=== PATIENT | female | born 1960 | race Caucasian/White ===

== ENCOUNTER 2017-09-15 06:05 | Inpatient (IN) | payer OTHER ==
[2017-09-15] MEDS ORDERED: NA CHLORIDE 0.9% 1,000 ML ONE ×3 (06:44→07:50)
[2017-09-15 06:50] LABS: Potassium 4.1 mEq/L (3.6-5.0)
[2017-09-15 06:53] LABS: Basophils % 0.4 % (0-1.3); Eosinophils % 0.5 % (0-4.4); Lymphocytes % 6.5 % (15.3-44.8); MCH 28.9 pg (27.0-35.0); MCV 93.2 fL (80-100); MPV 8.7 fL (7.6-11.3); Monocytes % 20.2 % (3.3-12.3); RBC Red Blood Cell Count 3.53 M/uL (3.86-4.86)
[2017-09-15 06:54] LABS: Absolute Lymphocytes (CBC) 0.2 K/uL (0.7-4.9); Absolute Monocytes 0.5 K/uL (0.1-1.3)
[2017-09-15 06:56] LABS: Albumin 3.1 g/dL (3.2-5.5); Bilirubin Direct 0.3 mg/dL (0-0.2); Bilirubin Total 0.8 mg/dL (0.3-1.2); Protein, Total 6.5 g/dL (6.0-8.3)
[2017-09-15] MEDS ORDERED: ACETAMINOPHEN 500 MG TAB ONE (06:56)
[2017-09-15 07:34] LABS: Blood Morphology Comment NOT SEEN (NOT SEEN); Platelet Estimate ADEQ; Urine White Blood Cell Casts OK
[2017-09-15] MEDS ORDERED: PIPERACILLIN-TAZO-DEXTROSE,ISO 3.375 GM/50 ML BAG ONE (07:38)
[2017-09-15 08:02] LABS: Urine Blood NEGATIVE (NEG); Urine Glucose NEGATIVE (NEG); Urine Protein 1+ (NEG); Urine pH 5.5 (5.0-7.0)
[2017-09-15 08:03] LABS: Urine Bacteria NONE SEEN /HPF (<20); Urine Culture Reflex Order NOT NEEDED; Urine RBC <5 /HPF (NONE SEEN)
[2017-09-15] MEDS ORDERED: VANCOMYCIN/NS 1 gm 1 GM/250 ML BAG ONE (08:41)
--- NOTE | 2017-09-15 10:15 | RAD REPORT ---
EXAM DESCRIPTION: RAD - Chest Single View - 09/15/2017 8:08 am CLINICAL HISTORY: Fever. COMPARISON: 2014. FINDINGS: The lungs appear clear of acute infiltrate. The heart is moderately enlarged. IMPRESSION: No acute abnormality is displayed.
--- NOTE | 2017-09-15 10:18 | RAD REPORT ---
EXAM DESCRIPTION: CT - Abdomen Pelvis Wo Contrast - 09/15/2017 10:06 am CLINICAL HISTORY: Abdominal pain. Fever, vomiting COMPARISON: 07/17/2014, 01/08/2013, 08/20/2011 TECHNIQUE: CT imaging of the abdomen and pelvis was performed without contrast. Solid organ, bowel a nd vascular assessment is limited due to lack of IV and oral contrast. All CT scans are performed using dose optimization technique as appropriate and may include automated exposure control or mA/KV adjustment according to patient size. FINDINGS: Linear subsegmental atelectasis is present in both lung bases. The liver, spleen, pancreas, adrenal glands are within normal limits for a limited non-contrast exami nation. Several low-density renal lesions are present probably cysts but incompletely assessed. No st one or hydronephrosis. Multiple the dilated small bowel loops are seen in the mid and lower abdomen compatible with a modera te mechanical small-bowel obstruction. There is right lower quadrant ventral hernia seen with several prominent loops of small bowel in the hernia sac with transition point probably present in this raquel on. No free intraperitoneal air is seen. No localized fluid collections or abscess. Trace free fluid is seen in the pelvis. No bulky adenopathy is seen. Moderate degenerative changes are present in the spine. IMPRESSION: Moderate mechanical small-bowel obstruction is noted. Point of transition is suspected i n the right lower quadrant ventral hernia. No free air or abscess. A limited non-contrast examination was performed as detailed.
--- NOTE | 2017-09-15 10:23 | ER ---
Nurse's Notes [facility] Name: Fannie Plunkett Age: 57 yrs Sex: Female : 1960 Arrival Date: 09/15/2017 Time: 06:07 Bed 4 Private MD: Diagnosis: Sepsis;Bacteremia;Hypotension Presentation: 09/15 06:32 Presenting complaint: EMS states: "Patient has been having intestinal issues for the bs1 past year, she's had a colonoscopy, she's been vomiting x3, with diarrhea, blood pressure low at 80/56, 101.2 temp, 97% on room air, patient states she is supposed to have a lower bowel series today at 1000 am.". Transition of care: patient was not received from another setting of care. Onset of symptoms was September 15, 2017. Care prior to arrival: None. 06:32 Method Of Arrival: EMS: [facility] bs1 06:32 Acuity: MODESTA 2 bs1 Historical: - Allergies: 06:17 Morphine; ak1 06:17 Codeine; ak1 06:17 NSAIDS; ak1 06:17 Tape; ak1 - Home Meds: 06:17 Depakote 500 mg Oral TbEC 1 tab 2 times per day [Active]; Nexium 40 mg Oral cpDR 1 cap ak1 once daily [Active]; Lasix 20 mg Oral tab 1 tab once daily [Active]; Lunesta 3 mg oral tab 1 tab once daily [Active]; Klonopin 0.5 mg Oral tab 1 tab nightly [Active]; Robaxin 750 mg Oral 3 tabs daily [Active]; Bystolic 5 mg oral tab 1 tab once daily [Active]; aspirin 81 mg Oral chew 1 tab once daily [Active]; levothyroxine 100 mcg tab 1 tab once daily [Active]; Crestor 40 mg oral tab 1 tab once daily [Active]; Vascepa 1 gram oral cap 2 caps 2 times per day [Active]; nexabiotic [Active]; patanase [Active]; Atrovent Nasal [Active]; Zyrtec 10 mg Oral tab 1 tab once daily [Active]; verapamil 240 mg Oral C24P 1 cap once daily [Active]; Adcirca 20 mg oral tab 2 tabs once daily [Active]; Viberzi 100 mg oral tab 1 tab daily [Active]; allopurinol 100 mg Oral tab 1 tab once daily [Active]; Lipofen 150 mg oral cap 1 cap once daily [Active]; sinupro [Active]; Iron CR Oral [Active]; Vitamin D Oral [Active]; tramadol 50 mg Oral tab [Active]; restsis [Active]; - PMHx: 06:17 Sleep Apnea; IBS; Hypothyroidism; Anemia; PAH; Hyperlipidemia; GERD; Depression; ak1 - PSHx: 06:17 Hysterectomy; Hernia repair; Knee surgery; Colon resection; back surg for 3 pinched ak1 nerves; breast needle biopsy; - Immunization history:: Adult Immunizations unknown. - Social history:: Smoking status: unknown. Screenin:37 Abuse screen: Denies threats or abuse. Denies injuries from another. Nutritional bs1 screening: No deficits noted. Tuberculosis screening: No symptoms or risk factors identified. Fall Risk No fall in past 12 months (0 pts). No secondary diagnosis (0 pts). IV access (20 points). Ambulatory Aid- Crutches/Cane/Walker (15 pts). Gait- Weak (10 pts.). Mental Status- Oriented to own ability (0 pts). Total Castañeda Fall Scale indicates High Risk Score (45 or more points). Fall prevention measures have been instituted. Side Rails Up X 2 Family Present and informed to notify staff if the need to leave the bedside As available patient and family educated on Fall Prevention Program and Strategies. Assessment: 06:38 General: Appears uncomfortable, Behavior is calm, cooperative, appropriate for age. bs1 Pain: Denies pain. Neuro: Level of Consciousness is awake, alert, obeys commands, Oriented to person, place, time, situation, Appropriate for age [employer] are weak bilaterally Weakness Gait is Speech is normal, Reports weakness. Cardiovascular: Denies chest pain, lightheadedness, palpitations, Heart tones S1 S2 present Capillary refill < 3 seconds Patient's skin is warm and dry. Respiratory: Reports shortness of breath on exertion uses home oxygen at night/bipap, hx of sleep apnea Airway is patent Trachea midline Respiratory effort is even, unlabored, Respiratory pattern is regular, symmetrical, Breath sounds are diminished bilaterally. GI: Abdomen is round distended, Bowel sounds present X 4 quads. Abdomen is tender to palpation X 4 quads. Reports nausea, vomiting, Patient currently denies bloody stool, rectal bleeding. : No deficits noted. No signs and/or symptoms were reported regarding the genitourinary system. EENT: Eyes jaundine. face jaundice/pale. Lips dry.. Derm: Skin is intact, Skin is pale, Skin temperature is warm lymphemdema noted to bilateral legs, discoloration of chins noted. Musculoskeletal: 07:09 General: Appears in no apparent distress. ill, obese, Behavior is calm, cooperative. em Pain: Denies pain. Neuro: Level of Consciousness is awake, alert, obeys commands, Oriented to person, place, time, situation, Fun[employer] are weak bilaterally Weakness Speech is normal, Facial symmetry appears normal, Reports weakness. Cardiovascular: Denies chest pain, lightheadedness, palpitations, Heart tones S1 S2 present Capillary refill < 3 seconds Patient's skin is warm and dry. Respiratory: Airway is patent Respiratory effort is even, unlabored, Respiratory pattern is regular, symmetrical, Breath sounds are clear bilaterally. GI: Abdomen is round non-distended, Bowel sounds present X 4 quads. Abd is soft X 4 quads Abdomen is tender to palpation X 4 quads. Reports nausea, vomiting, Patient currently denies rectal bleeding. : No signs and/or symptoms were reported regarding the genitourinary system. EENT: Oral mucosa is dry. lips are dry, crusted. Derm: Skin is intact, Skin is dry, Skin is pale, Skin temperature is warm. Musculoskeletal: Range of motion: intact in all extremities. 07:50 Reassessment: pt skin is pale, dry and warm, respirations even and unlabored, A\\T\\O4. em SIDDHARTH Chen notified of BP 76/37, HR102, pt moved to trauma room 4 for central line placement, report given to MARC Marion Patient denies pain at this time. 07:55 Pain: Denies pain. Neuro: Level of Consciousness is awake, alert, obeys commands, jl7 Oriented to person, place, time, situation. Cardiovascular: Denies chest pain, Murmur present. Respiratory: Airway is patent Respiratory effort is even, unlabored, Respiratory pattern is regular, symmetrical, Breath sounds with wheezes bilaterally. GI: Abdomen is round non-distended, Patient currently denies abdominal pain. Derm: Skin is dry, Skin is pale, Skin temperature is warm. 08:45 Reassessment: Gustavo MESSINA at bedside to insert Central Line. jl7 08:45 Reassessment: Patient and/or family updated on plan of care and expected duration. Pain jl7 level reassessed. Patient is alert, oriented x 3, equal unlabored respirations, skin warm/dry/pink. Respiratory: Breath sounds are clear bilaterally. 09:30 Reassessment: Pt to CT. jl7 Vital Signs: 06:36 BP 80 / 56; Pulse 105; Resp 25; Temp 102.5(O); Pulse Ox 100% on 2 lpm NC; Weight 111.13 bs1 kg; Height 5 ft. 4 in. (162.56 cm); Pain 0/10; 06:53 BP 88 / 53; Pulse 103; Resp 20; Pulse Ox 100% on 2 lpm NC; bs1 07:07 BP 89 / 71; Pulse 101; Resp 24; Pulse Ox 100% on 2 lpm NC; Pain 0/10; em 07:40 BP 76 / 37; Pulse 102; Resp 26; Temp 100.0(O); Pulse Ox 99% on 2 lpm NC; Pain 0/10; em 07:46 BP 93 / 50; Pulse 99; Resp 27 S; Pulse Ox 94% on 2 lpm NC; jl7 08:03 BP 90 / 54; Pulse 104; Resp 18 S; Pulse Ox 100% on 2 lpm NC; jl7 09:25 BP 124 / 88; Pulse 94; Resp 20; Pulse Ox 100% on 2 lpm NC; jb1 10:18 BP 77 / 46; Pulse 90; Resp 20; Pulse Ox 100% ; aj1 10:28 BP 99 / 57; Pulse 90; Resp 20; Pulse Ox 100% ; aj1 10:56 BP 79 / 43; Pulse 93; Resp 22; Pulse Ox 98% ; aj1 11:07 BP 106 / 52; Pulse 94; Resp 21; Temp 99.3(O); Pulse Ox 100% on NC; aj1 06:36 Body Mass Index 42.05 (111.13 kg, 162.56 cm) bs1 10:56 Levophed increased to 15 mcg/min aj1 ED Course: 06:07 Patient arrived in ED. rg2 06:08 [facility] jr8 06:08 Enrico Flores MD is Attending Physician. jr8 06:31 Brissa Dickson, MARC is Primary Nurse. bs1 06:33 Missed attempt(s): 22 gauge in left forearm. Inserted saline lock: 22 gauge in left lp1 forearm, using aseptic technique. Blood collected. 06:35 Triage completed. bs1 06:47 Arm band placed on placed. bs1 06:48 Inserted saline lock: 18 gauge in right antecubital area, using aseptic technique. By bs1 SIDDHARTH Mckinley. 06:48 Patient has correct armband on for positive identification. Bed in low position. Call bs1 light in reach. Side rails up X 1. media monitor on. Pulse ox on. NIBP on. 06:57 Report given to NINFA Siu. bs1 07:06 X-ray completed. Portable x-ray completed in exam room. Patient tolerated procedure jb2 well. 08:02 Primary Nurse role handed off by Brissa Dickson RN jl7 08:02 Doni Hearn RN is Primary Nurse. jl7 08:45 Assisted provider with central line placement. Set up central line tray. Triple lumen jl7 line placed in left internal jugular. Line placed by Gustavo MESSINA Patient tolerated poorly. Pt unable to remain still during procedure. Provider attempt was unsuccessful at this time. Before procedure, did Practitioner(s) obtain informed consent? Yes. Patient \\T\\ family education about procedure, CLABSI prevention and S/S of infection? Yes. Time-out/Briefing performed prior to start of procedure? Yes. Was handwashing/sanitizing done immediately prior to procedure? Yes. Was patient positioned to in a way to prevent air embolism? Yes. Was procedure site sterilized? Yes, with chlorhexidine. Was the site allowed to dry? Yes. Was local anesthetic and/or sedation utilized? Yes. During the procedure, did the Practitioner(s) maintain a sterile field? Yes. 08:54 Radiology exam delayed due to PT GETTING LINE PUT IN VIA U/S BY JOSH. MARION TO CALL jg1 WHEN READY. 09:53 Report given to MARC Mitchell. jl7 10:15 Assisted provider with central line placement. Set up central line tray. Triple lumen aj1 line placed in right femoral. Line placed by Gustavo MESSINA Placement verified by blood return, Dressed with Tegaderm, Blood was collected. Patient tolerated well. Before procedure, did Practitioner(s) obtain informed consent? Yes. Patient \\T\\ family education about procedure, CLABSI prevention and S/S of infection? Yes. Time-out/Briefing performed prior to start of procedure? Yes. Was handwashing/sanitizing done immediately prior to procedure? Yes. Was patient positioned to in a way to prevent air embolism? Yes. Was procedure site sterilized? Yes, with chlorhexidine. Was the site allowed to dry? Yes. Was local anesthetic and/or sedation utilized? Yes. During the procedure, did the Practitioner(s) maintain a sterile field? Yes. Were unused ports clamped during insertion? Yes. Was a 2nd qualified MD obtained after 3 unsuccessful insertion attempts? N/A. Was blood aspirated from each lumen? Yes. After the procedure, did the Practitioner(s) clean the site and apply a sterile dressing? Yes. 10:17 Primary Nurse role handed off by Doni Hearn RN aj1 10:17 Debbi Rivera RN is Primary Nurse. aj1 10:21 Michael Villegas MD is Hospitalizing Provider. jr8 11:53 Patient admitted, IV remains in place. aj1 Administered Medications: 06:30 Drug: NS 0.9% 1000 ml Route: IV; Rate: 1000 ml; Site: left antecubital; bs1 09:23 Follow up: IV Intake: 1000ml jl7 06:42 Drug: Tylenol 1000 mg Route: PO; bs1 07:08 Follow up: Response: Temperature is decreased hj 06:59 Drug: NS 0.9% 1000 ml Route: IV; Rate: 1000 ml; Site: right antecubital; hj 09:00 Follow up: IV Status: Completed infusion jl7 09:22 Follow up: IV Intake: 1000ml jl7 07:37 Drug: Zosyn 3.375 grams Route: IVPB; Infused Over: 60 mins; Site: right antecubital; em 08:37 Follow up: Response: No adverse reaction; IV Status: Completed infusion jl7 07:40 Drug: NS 0.9% 1000 ml Route: IV; Rate: 1000 ml; Site: right antecubital; em 09:00 Follow up: IV Status: Completed infusion jl7 09:22 Follow up: IV Intake: 1000ml jl7 08:40 Drug: vancoMYCIN 1 grams Route: IVPB; Infused Over: 2 hrs; Site: right antecubital; jl7 10:20 Drug: Levophed (4 mg/250 mL D5W 4 mcg/min {Note: Drip started at 10 mcg/ min.} Route: aj1 IV; Rate: calculated rate; Site: right femoral; 11:10 Follow up: Rate change 15 mcg/min aj1 Intake: 09:22 IV: 1000ml; Total: 1000ml. jl7 09:22 IV: 1000ml; Total: 2000ml. jl7 09:23 IV: 1000ml; Total: 3000ml. jl7 Outcome: 10:22 Decision to Hospitalize by Provider. jr8 11:53 Patient left the ED. 11:53 Admitted to ICU accompanied by nurse, accompanied by tech, via stretcher, on monitor, aj with chart. 11:53 critical 11:53 Discharge instructions given to patient, family, Instructed on the need for admit, Demonstrated understanding of instructions. Signatures: Pj Coy jb1 Sudhakar Beltran rg2 Debbi Rivera RN RN aj1 Jessica Irwin, RN RN Robbin Razo jb2 Shannon Silva jg1 Salbador Benjamin, ARMATURE STRAIGHTENER ARMATURE STRAIGHTENER Kaur Cedillo, RN RN lp1 Gustavo Joiner PA PA jr8 Yudi Kaba, RN RN ak1 Be Puentes, RN Doni De Leon, MARC RN jl7 Brissa Dickson, RN RN bs1 Corrections: (The following items were deleted from the chart) 09:22 IV Intake: 1000ml jl7 jl7
--- NOTE | 2017-09-15 10:23 | EDPHYS ---
Physician Documentation [facility] Name: Fannie Plunkett Age: 57 yrs Sex: Female : 1960 Arrival Date: 09/15/2017 Time: 06:07 Bed 4 Private MD: ED Physician Enrico Flores HPI: 09/15 07:12 This 57 yrs old Female presents to ER via EMS with complaints of n/v/d. jr8 07:14 The patient presents to the emergency department with nausea, vomiting, diarrhea. jr8 Onset: The symptoms/episode began/occurred gradually, 3 month(s) ago. Possible causes: unknown. The symptoms are aggravated by nothing. The symptoms are alleviated by nothing. Associated signs and symptoms: The patient has no apparent associated signs or symptoms. Severity of symptoms: At their worst the symptoms were moderate in the emergency department the symptoms are unchanged. The patient has not experienced similar symptoms in the past. The patient has been recently seen by a physician:. Patient stated that she has had recent endoscopy, colonoscopy for continuous n/v/d. Stated that she was scheduled to have small bowel follow through tomorrow. Came to ED today for weakness, n/v/d . Historical: - Allergies: 06:17 Morphine; ak1 06:17 Codeine; ak1 06:17 NSAIDS; ak1 06:17 Tape; ak1 - Home Meds: 06:17 Depakote 500 mg Oral TbEC 1 tab 2 times per day [Active]; Nexium 40 mg Oral cpDR 1 cap ak1 once daily [Active]; Lasix 20 mg Oral tab 1 tab once daily [Active]; Lunesta 3 mg oral tab 1 tab once daily [Active]; Klonopin 0.5 mg Oral tab 1 tab nightly [Active]; Robaxin 750 mg Oral 3 tabs daily [Active]; Bystolic 5 mg oral tab 1 tab once daily [Active]; aspirin 81 mg Oral chew 1 tab once daily [Active]; levothyroxine 100 mcg tab 1 tab once daily [Active]; Crestor 40 mg oral tab 1 tab once daily [Active]; Vascepa 1 gram oral cap 2 caps 2 times per day [Active]; nexabiotic [Active]; patanase [Active]; Atrovent Nasal [Active]; Zyrtec 10 mg Oral tab 1 tab once daily [Active]; verapamil 240 mg Oral C24P 1 cap once daily [Active]; Adcirca 20 mg oral tab 2 tabs once daily [Active]; Viberzi 100 mg oral tab 1 tab daily [Active]; allopurinol 100 mg Oral tab 1 tab once daily [Active]; Lipofen 150 mg oral cap 1 cap once daily [Active]; sinupro [Active]; Iron CR Oral [Active]; Vitamin D Oral [Active]; tramadol 50 mg Oral tab [Active]; restsis [Active]; - PMHx: 06:17 Sleep Apnea; IBS; Hypothyroidism; Anemia; PAH; Hyperlipidemia; GERD; Depression; ak1 - PSHx: 06:17 Hysterectomy; Hernia repair; Knee surgery; Colon resection; back surg for 3 pinched ak1 nerves; breast needle biopsy; - Immunization history:: Adult Immunizations unknown. - Social history:: Smoking status: unknown. ROS: 07:14 Eyes: Negative for injury, pain, redness, and discharge, ENT: Negative for injury, jr8 pain, and discharge, Neck: Negative for injury, pain, and swelling, Cardiovascular: Negative for chest pain, palpitations, and edema, Respiratory: Negative for shortness of breath, cough, wheezing, and pleuritic chest pain, Back: Negative for injury and pain, MS/Extremity: Negative for injury and deformity, Skin: Negative for injury, rash, and discoloration, Neuro: Negative for headache, weakness, numbness, tingling, and seizure. 07:14 Constitutional: Positive for fatigue, fever. 07:14 Abdomen/GI: Positive for nausea, vomiting, and diarrhea, abdominal cramps, Negative for abdominal pain, abdominal distension, anorexia, dysphagia, hematemesis, black/tarry stool, rectal pain, rectal bleeding, bowel incontinence, flatulence. Exam: 07:14 Eyes: Pupils equal round and reactive to light, extra-ocular motions intact. Lids and jr8 lashes normal. Conjunctiva and sclera are non-icteric and not injected. Cornea within normal limits. Periorbital areas with no swelling, redness, or edema. ENT: Nares patent. No nasal discharge, no septal abnormalities noted. Tympanic membranes are normal and external auditory canals are clear. Oropharynx with no redness, swelling, or masses, exudates, or evidence of obstruction, uvula midline. Mucous membranes moist. Neck: Trachea midline, no thyromegaly or masses palpated, and no cervical lymphadenopathy. Supple, full range of motion without nuchal rigidity, or vertebral point tenderness. No Meningismus. Respiratory: Lungs have equal breath sounds bilaterally, clear to auscultation and percussion. No rales, rhonchi or wheezes noted. No increased work of breathing, no retractions or nasal flaring. Abdomen/GI: Soft, non-tender, with normal bowel sounds. No distension or tympany. No guarding or rebound. No evidence of tenderness throughout. Back: No spinal tenderness. No costovertebral tenderness. Full range of motion. Skin: Warm, dry with normal turgor. Normal color with no rashes, no lesions, and no evidence of cellulitis. MS/ Extremity: Pulses equal, no cyanosis. Neurovascular intact. Full, normal range of motion. Neuro: Awake and alert, GCS 15, oriented to person, place, time, and situation. Cranial nerves II-XII grossly intact. Motor strength 5/5 in all extremities. Sensory grossly intact. Cerebellar exam normal. Normal gait. 07:14 Cardiovascular: Rate: tachycardic, Rhythm: regular, Pulses: Pulses are 1+ in right radial artery and left radial artery. Heart sounds: normal, normal S1and S2, no S3 or S4, no murmur, no rub, no gallop, Edema: 1+ edema to level of left midcalf, left ankle, left foot, left toes, right midcalf, right ankle, right foot and right toes, JVD: is not appreciated. Vital Signs: 06:36 BP 80 / 56; Pulse 105; Resp 25; Temp 102.5(O); Pulse Ox 100% on 2 lpm NC; Weight 111.13 bs1 kg; Height 5 ft. 4 in. (162.56 cm); Pain 0/10; 06:53 BP 88 / 53; Pulse 103; Resp 20; Pulse Ox 100% on 2 lpm NC; bs1 07:07 BP 89 / 71; Pulse 101; Resp 24; Pulse Ox 100% on 2 lpm NC; Pain 0/10; em 07:40 BP 76 / 37; Pulse 102; Resp 26; Temp 100.0(O); Pulse Ox 99% on 2 lpm NC; Pain 0/10; em 07:46 BP 93 / 50; Pulse 99; Resp 27 S; Pulse Ox 94% on 2 lpm NC; jl7 08:03 BP 90 / 54; Pulse 104; Resp 18 S; Pulse Ox 100% on 2 lpm NC; jl7 09:25 BP 124 / 88; Pulse 94; Resp 20; Pulse Ox 100% on 2 lpm NC; jb1 10:18 BP 77 / 46; Pulse 90; Resp 20; Pulse Ox 100% ; aj1 10:28 BP 99 / 57; Pulse 90; Resp 20; Pulse Ox 100% ; aj1 10:56 BP 79 / 43; Pulse 93; Resp 22; Pulse Ox 98% ; aj1 11:07 BP 106 / 52; Pulse 94; Resp 21; Temp 99.3(O); Pulse Ox 100% on NC; aj1 06:36 Body Mass Index 42.05 (111.13 kg, 162.56 cm) bs1 10:56 Levophed increased to 15 mcg/min aj1 Procedures: 10:15 Central Line: the site was prepped with Betadine, in sterile fashion, a triple lumen jr8 catheter was inserted, in the right femoral vein, in 1 attempts. placement was verified, by blood return, the site was dressed with 4X4s, Tegaderm, foam tape, using sterile technique, the patient tolerated the procedure, well. 10:15 Central Line: the site was prepped with Betadine, in sterile fashion, a triple lumen jr8 catheter was inserted, in the left internal jugular vein, in 1 attempts. Patient could not tolerate this procedure. We had to stop midway through procedure. Unable to complete. MDM: 06:08 Patient medically screened. jr8 10:15 Data reviewed: vital signs, nurses notes, lab test result(s), EKG, radiologic studies, jr8 CT scan, plain films, and as a result, I will admit patient. Data interpreted: Pulse oximetry: on room air is 100 %. Interpretation: normal. Counseling: I had a detailed discussion with the patient and/or guardian regarding: the historical points, exam findings, and any diagnostic results supporting the discharge/admit diagnosis, lab results, radiology results, the need for further work-up and treatment in the hospital. Physician consultation: Michael Villegas MD was called at 10:21, was contacted at 10:21, regarding admission, to the ICU, and will see patient. 09/15 06:26 Order name: Basic Metabolic Panel [facility] 09/15 06:26 Order name: CBC with Diff [facility] 09/15 06:26 Order name: Creatinine for Radiology [facility] 09/15 06:26 Order name: Hepatic Function [facility] 09/15 06:26 Order name: Lipase [facility] 09/15 06:37 Order name: Influenza Screen (a \T\ B) [facility] 09/15 06:37 Order name: Blood Culture Adult (2) [facility] 09/15 06:37 Order name: Lactate [facility] 09/15 06:37 Order name: Procalcitonin [facility] 09/15 06:50 Order name: Basic Metabolic Panel; Complete Time: 06:58 EDMS 09/15 06:50 Order name: Lipase; Complete Time: 06:58 EDMS 09/15 06:52 Order name: Urine Microscopic Only [facility] 09/15 06:55 Order name: Creatinine (Radiology Only); Complete Time: 06:58 EDMS 09/15 06:57 Order name: Liver (Hepatic) Function; Complete Time: 06:58 EDMS 09/15 06:52 Order name: XRAY Chest (1 view) [facility] 09/15 07:12 Order name: Influenza Screen (A ; Complete Time: 07:12 EDMS 09/15 07:16 Order name: Lactate; Complete Time: 07:19 EDMS 09/15 07:34 Order name: Urine Dipstick--Ancillary (enter results) 09/15 07:35 Order name: CBC with Automated Diff; Complete Time: 07:40 EDMS 09/15 07:35 Order name: CBC Smear Scan; Complete Time: 07:40 EDMS 09/15 07:38 Order name: Procalcitonin; Complete Time: 07:40 EDMS 09/15 08:02 Order name: Urine Dipstick-Ancillary; Complete Time: 08:25 EDMS 09/15 08:04 Order name: Urine Microscopic Only; Complete Time: 08:25 EDMS 09/15 08:29 Order name: CT Abd/Pelvis - Without Cont [facility] 09/15 10:16 Order name: RAD; Complete Time: 10:22 EDMS 09/15 10:18 Order name: CT; Complete Time: 10:22 EDMS 09/15 10:30 Order name: Lactate Sepsis 2 HR Follow-up; Complete Time: 10:34 EDMS 09/15 06:26 Order name: IV Saline Lock; Complete Time: 06:32 jr8 09/15 06:26 Order name: Labs collected and sent; Complete Time: 06:32 jr8 09/15 06:26 Order name: Urine Dipstick-Ancillary (obtain specimen); Complete Time: 08:01 jr8 09/15 07:05 Order name: Straight Cath - Urine; Complete Time: 07:59 jr8 Administered Medications: 06:30 Drug: NS 0.9% 1000 ml Route: IV; Rate: 1000 ml; Site: left antecubital; bs1 09:23 Follow up: IV Intake: 1000ml jl7 06:42 Drug: Tylenol 1000 mg Route: PO; bs1 07:08 Follow up: Response: Temperature is decreased hj 06:59 Drug: NS 0.9% 1000 ml Route: IV; Rate: 1000 ml; Site: right antecubital; hj 09:00 Follow up: IV Status: Completed infusion jl7 09:22 Follow up: IV Intake: 1000ml jl7 07:37 Drug: Zosyn 3.375 grams Route: IVPB; Infused Over: 60 mins; Site: right antecubital; em 08:37 Follow up: Response: No adverse reaction; IV Status: Completed infusion jl7 07:40 Drug: NS 0.9% 1000 ml Route: IV; Rate: 1000 ml; Site: right antecubital; em 09:00 Follow up: IV Status: Completed infusion jl7 09:22 Follow up: IV Intake: 1000ml jl7 08:40 Drug: vancoMYCIN 1 grams Route: IVPB; Infused Over: 2 hrs; Site: right antecubital; jl7 10:20 Drug: Levophed (4 mg/250 mL D5W 4 mcg/min {Note: Drip started at 10 mcg/ min.} Route: aj1 IV; Rate: calculated rate; Site: right femoral; 11:10 Follow up: Rate change 15 mcg/min aj1 Disposition: 09/15/17 10:22 Hospitalization ordered by Michael Villegas for Inpatient Admission. Preliminary diagnosis are Sepsis, Bacteremia, Hypotension. - Bed requested for Intensive Care Unit. - Status is Inpatient Admission. sv - Condition is Stable. - Problem is new. - Symptoms have improved. UTI on Admission? No Addendum: 09/26/2017 11:24 Co-signature as Attending Physician, Enrico Flores MD available for consultation at p s1 all times. . Signatures: Dispatcher [employer] Susie Lambert Angela, RN RN aj1 Jessica Irwin, RN RN sv Salbador Benjamin, BRIAR CUTTER BRIAR CUTTER em Gustavo Joiner PA PA jr8 Yudi Kaba RN RN ak1 Be Puentes RN RN hj Doni Hearn RN RN jl7 Enrico Flores MD MD [facility] Brissa Dickson, RN RN bs1
[2017-09-15] MEDS ORDERED: FENTANYL CITR 100 MCG/2 ML IV PRN (11:29)
[2017-09-15] MEDS ORDERED: ACETAMINOPHEN 500 MG TAB PO PRN (11:29)
[2017-09-15] MEDS ORDERED: ALBUTEROL 2.5 MG/3 ML NEB SOL NEB SCH (12:00)
[2017-09-15] MEDS ORDERED: ALBUTEROL 2.5 MG/3 ML NEB SOL NEB PRN (12:59)
[2017-09-15] MEDS: NA CHLORIDE 0.9% 1,000 ML IV SCH ×2 (13:04→23:55)
--- NOTE | 2017-09-15 13:09 | P.HP ---
Certification for Inpatient Patient admitted to: Inpatient With expected LOS: >2 Midnights Practitioner: I am a practitioner with admitting privileges, knowledge of patient current condition, hospital course, and medical plan of care. Services: Services provided to patient in accordance with Admission requirements found in Title 42 Section 412.3 of the Code of Federal Regulations Patient History Date of Service: 09/15/17 Reason for admission: WEAK,NAUSEA, DIARRHEA History of Present Illness: MS DELACRUZ HAS MANY MEDICAL ISSUES. SHE HAS PULMONARY HTN FROM MEDS IN PAST, SHE HAS CHF, COPD, HYPOXIA, HTN, OBESITY ETC. SHE HAS BEEN GOING TO DR. KAUR FOR 2 MONTHS FOR DIARRHEA AND VOMITING. EGD AND COLONOSCOPY WERE DONE. NO MAJOR FINDINGS ARE FOUND. SHE IS HERE FOR WORSE SYMPTOMS. HER BP IS LOW. SHE IS ON DIURETICS FOR CHF AND HAS KEPT TAKING THEM. SHE NOW IS IN ICU . CT SCAN SHOWS SMALL BOWEL OBSTRUCTION. Allergies codeine [Codeine] Allergy (Mild, Verified 02/22/12 09:06) Itching morphine Adverse Reaction (Severe, Verified 02/22/12 09:06) Decreased blood presure NSAIDS (Non-Steroidal Anti-Inflamma Adverse Reaction (Intermediate, Verified 27/06 20:23) kidney insufficiency Tape Allergy (Uncoded 09/15/17 11:58) Unknown Home Medications: Allopurinol 100 mg PO DAILY 09/15/17 Aspirin 81 mg PO DAILY 09/15/17 Cetirizine HCl [Zyrtec] 10 mg PO BEDTIME 09/15/17 Cholecalciferol (Vitamin D3) [Vitamin D 1000 Iu Tab] 1,000 unit PO DAILY Clonazepam [Klonopin] 0.5 mg PO BEDTIME 09/15/17 Divalproex Sodium [Depakote] 500 mg PO BID 09/15/17 Esomeprazole Mag Trihydrate [Nexium] 40 mg PO DAILY 09/15/17 Eszopiclone [Lunesta] 3 mg PO BEDTIME 09/15/17 Fenofibrate [Lipofen] 150 mg PO DAILY 09/15/17 Furosemide [Lasix] 20 mg PO DAILY 09/15/17 Icosapent Ethyl [Vascepa] 2 gm PO BID 09/15/17 Levothyroxine [Synthroid] 100 mcg PO DAILY 09/15/17 Nebivolol HCl [Bystolic] 5 mg PO DAILY 09/15/17 Olopatadine HCl [Patanase] 30.5 gm NS BID PRN 09/15/17 Rosuvastatin Calcium [Crestor] 40 mg PO DAILY 09/15/17 Tadalafil [Cialis] 20 mg PO BID 09/15/17 Verapamil HCl [Verapamil ER] 240 mg PO BEDTIME 09/15/17 - Past Medical/Surgical History Has patient received pneumonia vaccine in the past: Yes Diabetic: No -: sleep apnea -: IBS/GERD -: Hypothyroid -: aNEMIA -: Pulmonary HTN -: back pain/ pinch nerves -: CKD -: HTN -: Hysterectomy -: Hernia repair -: Knee SX -: colon resection -: back Sx, Sciatica - Family History Mother History Unknown: Yes -: Hypertension, Blood disorders - Social History Smoking Status: Never smoker Alcohol use: Yes CD- Drugs: No Caffeine use: Yes Place of Residence: Home Review of Systems 10-point ROS is otherwise unremarkable General: Weakness, Malaise Physical Examination - Vital Signs Temperature: 99.3 F Blood Pressure: 106/52 Pulse: 94 Respirations: 21 - Physical Exam General: Alert, Moderate distress, Other (NGT SUCTION, LIC) HEENT: Atraumatic, PERRLA, Mucous membr. moist/pink, EOMI, Sclerae nonicteric Neck: Supple, 2+ carotid pulse no bruit, No LAD, Without JVD or thyroid abnormality Respiratory: Clear to auscultation bilaterally, Normal air movement Cardiovascular: Regular rate/rhythm, Normal S1 S2 Gastrointestinal: Normal bowel sounds, No tenderness Musculoskeletal: No tenderness Integumentary: No rashes Neurological: Normal gait, Normal speech, Normal strength at 5/5 x4 extr, Normal tone, Normal affect Lymphatics: No axilla or inguinal lymphadenopathy - Studies Laboratory Data (last 24 hrs) 09/15/17 06:20: Creatinine 3.60 H 09/15/17 06:20: WBC 2.7 L, Hgb 10.2 L, Hct 33.0 L, Plt Count 177 09/15/17 06:20: Sodium 144, Potassium 4.1, BUN 57 H, Creatinine 3.47 H, Glucose 115, Total Bilirubin 0.8, AST 40, ALT 23, Alkaline Phosphatase 42, Lipase 47 Microbiology Data (last 24 hrs): 09/15/17 06:50 Nasopharnyx Influenza Type A Antigen Screen - Final 09/15/17 06:50 Nasopharnyx Influenza Type B Antigen Screen - Final Assessment and Plan - Problems (Diagnosis) (1) Partial small bowel obstruction Current Visit: Yes Status: Acute Plan: IV FLUIDS IV LEV, FLAGYL NGT WITH SUCTION DR WHIPPLE CONSULTED. (2) Septic shock Current Visit: Yes Status: Acute Plan: IV ABX MOST LIKELY FROM SMALL BOWEL OBST NO OTHER OBVIOUS SIGNS OF INFECTION (3) Dehydration Current Visit: Yes Status: Acute (4) Acute on chronic renal failure Current Visit: Yes Status: Acute Plan: IV FLUID CHECK LAB DAILY DVT PX - Advance Directives Does patient have a Living Will: Yes Does patient have a Durable POA for Healthcare: Yes
[2017-09-15] MEDS: FAMOTIDINE 20 MG/2 ML VIAL IV SCH (14:59)
[2017-09-15] MEDS: ONDANSETRON 4 MG/2 ML VIAL IV PRN (15:08)
[2017-09-15] MEDS: METRONIDAZOLE 500mg IVPB 500 MG/100 ML BAG IV SCH ×2 (16:49→23:53)
[2017-09-15] MEDS: ENOXAPARIN 30 MG/0.3 ML SQ SCH (16:49)
[2017-09-15] MEDS: NOREPINEPHRINE 4 MG in D5W 250 ML IV PRN ×2 (16:57→20:06)
[2017-09-15] MEDS ORDERED: ENOXAPARIN 40 MG/0.4 ML SQ SCH (17:00)
[2017-09-15] MEDS ORDERED: Levofloxacin500mg IV 500 MG/100 ML BAG IV SCH (18:00)
[2017-09-15] MEDS ORDERED: LORazepam 2 MG/ML VIAL IV PRN (18:44)
[2017-09-15] MEDS: DIVALPROEX DR 500MG TAB PO SCH (20:02)
[2017-09-16] MEDS ORDERED: NOREPINEPHRINE 4mg/D5W 250mL 4 MG/250 ML BAG IV ONE (01:04)
--- NOTE | 2017-09-16 03:25 | CON ---
Date of Consultation: 09/15/2017 Reason For Service: Chronic abdominal pain and acute abdominal pain. History Of Present Illness: This is a case of a 57-year-old patient, [facility], found to also have last night some nausea and some belly ache. The patient had a chronic hernia on her abdomen. It has been there for some time, has multiple series in the [facility]. I discussed the case with the previous surgeon who operated the case. She has a hernia that jus t loose the right of the main and every now and then gave her some trouble. She has some nausea, alt ramesh she feels better right now. She was admitted due to also some other medical issues and a surgi luis carlos consult was obtained. She denies any dysuria, hematuria, hematochezia, or melena. Denies any re cent traveling out of the country. Denies any family members sick at home. She was explained the im portance of colonoscopies. The patient has been worked out by the case monitor with EGD and co lonoscopy done not too long ago. She states she is also due for a small bowel series in the near [facility]. Allergies: CODEINE, MORPHINE, AND NSAIDS. Medications: Reviewed including aspirin. Past Medical Problems: Sleep apnea, irritable bowel syndrome, hypothyroid, anemia, pulmonary hyperte nsion, colon resection although, she does not remember why. Past Surgical History: Include hysterectomy, ventral hernia repair, back surgery. Family History: Hypertension. Social History: She does smoke, uses alcohol just occasionally. Review of Systems: Respiratory: Denies any shortness of breath. Abdominal: As above. Extremity: No calf tenderness. Otherwise, 10-point review of systems unremarkable. Physical Examination: General: The patient is awake and alert. HEENT: Pupils anicteric. Neck: Supple. Chest: Clear. Abdomen: Large. The patient is morbidly obese. Soft and depressible with no guarding rebound. No peritoneal signs. Mildly distended all over. No peritonitis. Rectal: Deferred. Extremities: Good capillary refill. Laboratory Data: Blood work shows WBC count of 2.7, hemoglobin at 10.2, and platelets up to 177. Po tassium is 4.1, bicarb is 25, creatinine is 3.47, total bilirubin of 0.8. Imaging: CAT scan of abdomen and pelvis read by Dr. Kaye as moderate mechanical small bowel obstruc tion suspect in the right lower quadrant. No free air, no pneumatosis, no abscess. Assessment: This is a 57-year-old patient, comes to us with chronic abdominal pain. She has been wo rked up as we speak with the case monitor to try to find the etiology of it. She has a very la rge hernia. She is morbidly obese and the hernia loose the the right of the main. This is just larg e area with bowel coming through and it looked it has been there chronically as when I talk to the ollie anthony. We do not see any specific transition point. The hernia itself is the entire abdomen, so it is hard to pinpoint a word to look first. In the next few days, if she does not improve then small b owel series will be done to see if there is any specific area. The bowel obstruction is not a proble m, it is the closure when we do a laparotomy and that has to be explained to the patient like I did r ight now in detail because we might not be able to close her abdomen. KACY/HAYLIE Voice ID: [id number] Report ID: [id number]
[2017-09-16 05:23] LABS: Absolute Lymphocytes (CBC) 0.6 K/uL (0.7-4.9); Absolute Monocytes 0.9 K/uL (0.1-1.3); Absolute Neutrophil 1.8 K/uL (1.8-8.0); Basophils % 0.8 % (0-1.3); Eosinophils % 0.2 % (0-4.4); Hematocrit 28.5 % (36.0-45.0); Lymphocytes % 16.9 % (15.3-44.8); MCH 29.9 pg (27.0-35.0); MCV 92.2 fL (80-100); MPV 7.6 fL (7.6-11.3); Monocytes % 26.4 % (3.3-12.3); RBC Red Blood Cell Count 3.09 M/uL (3.86-4.86)
[2017-09-16] MEDS: METRONIDAZOLE 500mg IVPB 500 MG/100 ML BAG IV SCH ×4 (05:25→23:15)
[2017-09-16 05:55] LABS: Potassium 4.6 mEq/L (3.6-5.0)
[2017-09-16] MEDS: ONDANSETRON 4 MG/2 ML VIAL IV PRN ×2 (07:05→14:50)
[2017-09-16] MEDS: DIVALPROEX DR 500MG TAB PO SCH ×3 (07:32→21:00)
[2017-09-16] MEDS: FAMOTIDINE 20 MG/2 ML VIAL IV SCH (08:55)
[2017-09-16] MEDS: NA CHLORIDE 0.9% 1,000 ML IV SCH ×2 (08:56→19:15)
--- NOTE | 2017-09-16 09:50 | P.PN ---
Subjective Date of Service: 09/16/17 Chief Complaint: LOOKS BETTER, STABLE Subjective: Improving (WANTS NASAL SPRAY, WORRIED ABOUT DEPAKOT. HAD DIARRHEA TODAY.) Review of Systems 10-point ROS is otherwise unremarkable General: Weakness Gastrointestinal: Diarrhea, As per HPI (NGT WITH SUCTION) Physical Examination - Vital Signs Temperature: 98.7 F Blood Pressure: 91/43 Pulse: 102 Respirations: 19 Pulse Ox (%): 92 - Physical Exam General: Alert, Mild distress, Obese HEENT: Atraumatic, PERRLA, EOMI Neck: Supple, JVD not distended Respiratory: Clear to auscultation bilaterally, Normal air movement Cardiovascular: Regular rate/rhythm, Normal S1 S2 Gastrointestinal: Normal bowel sounds, No tenderness Musculoskeletal: No tenderness Integumentary: No rashes Neurological: Normal speech, Normal tone, Normal affect Lymphatics: No axilla or inguinal lymphadenopathy - Studies Microbiology Data (last 24 hrs): 09/15/17 06:50 Nasopharnyx Influenza Type A Antigen Screen - Final 09/15/17 06:50 Nasopharnyx Influenza Type B Antigen Screen - Final Medications List Reviewed: Yes Assessment And Plan - Current Problems (Diagnosis) (1) Partial small bowel obstruction Current Visit: Yes Status: Acute Plan: IV FLUIDS IV LEV, FLAGYL NGT WITH SUCTION DR WHIPPLE CONSULTED. HAS DIARRHEA ALSO STOOL C DIFF ORDERED. MAY OR MAY NOT NEED SURGERY. WILL DISCUSS WITH . (2) Septic shock Current Visit: Yes Status: Acute Plan: IV ABX MOST LIKELY FROM SMALL BOWEL OBST NO OTHER OBVIOUS SIGNS OF INFECTION MORE OF DEHYDRATION FROM BOWEL OBSTRUCTION. (3) Dehydration Current Visit: Yes Status: Acute (4) Acute on chronic renal failure Current Visit: Yes Status: Acute Plan: IV FLUID CHECK LAB DAILY DVT PX BUN, CREAT HAS IMPROVED.
[2017-09-16] MEDS: ENOXAPARIN 30 MG/0.3 ML SQ SCH (17:04)
--- NOTE | 2017-09-16 18:13 | PN ---
Date of Progress Note: 09/16/2017 Diagnosis: Sepsis of unknown origin. Subjective: The patient is awake and alert. No distress. Abdomen is soft and depressible. No guard ing, rebound or peritoneal signs. Extremities: Good capillary refill. Review of Systems: Constitutional: Denies any fever. Gastrointestinal: The patient states some watery diarrhea. No blood. She says she does not feel ab dominal pain today. She is passing some flatus and has multiple bowel movement episodes. Pending fo r cultures. Genitourinary: Denies any dysuria, hematuria. Laboratory Data: Blood work, WBC count of 3.3 coming down from 2.7, hemoglobin of 9.3, bicarb is 23 with a chloride 112. Stool cultures still pending. Assessment: This is a 57-year-old patient with a large ventral hernia, but also sepsis. Her abdomen is benign. No abdominal tenderness. She has a chronic long-term hernia, which loose the right of t he main. She has been having workup for the GI tract for the last few months with endoscopies, colon oscopies, and also a schedule small bowel series that has not been done yet. The etiology of the sep sis is unknown at this time. We looking for C. diff colitis or any other inflammation. Since the ab domen is benign, right now, with no peritonitis, and the hernia has been there for a long time with n o pneumatosis. For next few days whenever she is a little bit better and the sepsis is in control then we should proceed with a small bowel series. KACY/HAYLIE Voice ID: [id number] Report ID: [id number]
[2017-09-16] MEDS ORDERED: NA CHLORIDE 0.9% 250 ML IV ONE (18:26)
[2017-09-16] MEDS: NOREPINEPHRINE 4 MG in D5W 250 ML IV PRN (19:14)
[2017-09-17] MEDS: NOREPINEPHRINE 4 MG in D5W 250 ML IV PRN (01:05)
[2017-09-17] MEDS: NA CHLORIDE 0.9% 1,000 ML IV SCH ×2 (03:29→10:54)
[2017-09-17] MEDS: METRONIDAZOLE 500mg IVPB 500 MG/100 ML BAG IV SCH ×4 (05:00→23:32)
[2017-09-17 05:36] LABS: Absolute Lymphocytes (CBC) 0.5 K/uL (0.7-4.9); Absolute Monocytes 0.7 K/uL (0.1-1.3); Absolute Neutrophil 0.8 K/uL (1.8-8.0); Basophils % 0.7 % (0-1.3); Eosinophils % 0.1 % (0-4.4); Lymphocytes % 26.9 % (15.3-44.8); MCH 30.5 pg (27.0-35.0); MCV 93.2 fL (80-100); MPV 7.9 fL (7.6-11.3); RBC Red Blood Cell Count 2.79 M/uL (3.86-4.86)
[2017-09-17 05:38] LABS: Monocytes % 33.5 % (3.3-12.3)
[2017-09-17 06:02] LABS: Albumin 1.9 g/dL (3.2-5.5); Bilirubin Direct 0.3 mg/dL (0-0.2); Bilirubin Total 0.5 mg/dL (0.3-1.2); Magnesium 1.8 mg/dL (1.8-2.5); Potassium 4.1 mEq/L (3.6-5.0); Protein, Total 4.4 g/dL (6.0-8.3)
[2017-09-17] MEDS: VANCOMYCIN ORAL SOLN 250 MG/5 ML OSYR PO SCH ×5 (07:14→23:33)
[2017-09-17] MEDS: DIVALPROEX DR 500MG TAB PO SCH ×2 (08:25→21:38)
[2017-09-17] MEDS: FAMOTIDINE 20 MG/2 ML VIAL IV SCH (08:25)
--- NOTE | 2017-09-17 10:19 | P.CNS ---
Date of Consult: 09/17/17 Reason for Consult: Shock Chief Complaint: Abdominal pain diarrhea History of Present Illness: Is patient is 57 years of age who presented to the emergency room with nausea vomiting diarrhea for the past 3 months previous the stool for C. difficile was negative denies any fever or chills scheduled to have a small-bowel follow- through. Patient was in shock started on vasopressors she is now off it was alert responsive cooperative on a BiPAP also has pulmonary hypertension multiple medications at home Patient has a small bowel obstruction Allergies codeine [Codeine] Allergy (Mild, Verified 02/22/12 09:06) Itching morphine Adverse Reaction (Severe, Verified 02/22/12 09:06) Decreased blood presure NSAIDS (Non-Steroidal Anti-Inflamma Adverse Reaction (Intermediate, Verified 27/06 20:23) kidney insufficiency Tape Allergy (Uncoded 09/15/17 11:58) Unknown Home Medications: Allopurinol 100 mg PO DAILY 09/15/17 Aspirin 81 mg PO DAILY 09/15/17 Cetirizine HCl [Zyrtec] 10 mg PO BEDTIME 09/15/17 Cholecalciferol (Vitamin D3) [Vitamin D 1000 Iu Tab] 1,000 unit PO DAILY Clonazepam [Klonopin] 0.5 mg PO BEDTIME 09/15/17 Divalproex Sodium [Depakote] 500 mg PO BID 09/15/17 Esomeprazole Mag Trihydrate [Nexium] 40 mg PO DAILY 09/15/17 Eszopiclone [Lunesta] 3 mg PO BEDTIME 09/15/17 Fenofibrate [Lipofen] 150 mg PO DAILY 09/15/17 Furosemide [Lasix] 20 mg PO DAILY 09/15/17 Icosapent Ethyl [Vascepa] 2 gm PO BID 09/15/17 Levothyroxine [Synthroid] 100 mcg PO DAILY 09/15/17 Nebivolol HCl [Bystolic] 5 mg PO DAILY 09/15/17 Olopatadine HCl [Patanase] 30.5 gm NS BID PRN 09/15/17 Rosuvastatin Calcium [Crestor] 40 mg PO DAILY 09/15/17 Tadalafil [Cialis] 20 mg PO BID 09/15/17 Verapamil HCl [Verapamil ER] 240 mg PO BEDTIME 09/15/17 - Past Medical/Surgical History Diabetic: No -: sleep apnea -: IBS/GERD -: Hypothyroid -: aNEMIA -: Pulmonary HTN -: back pain/ pinch nerves -: CKD -: HTN -: Hysterectomy -: Hernia repair -: Knee SX -: colon resection -: back Sx, Sciatica - Family History Mother History Unknown: Yes Medical History: Hypertension, Blood disorders - Social History Smoking Status: Unknown if ever smoked Alcohol use: Yes CD- Drugs: No Caffeine use: Yes Place of Residence: Home Review of Systems General: Weakness Gastrointestinal: Nausea, Abdominal Pain, Diarrhea Physical Examination Temp Pulse Resp BP Pulse Ox 98.1 F 96 H 18 82/64 L 100 09/17/17 04:00 09/17/17 07:15 09/17/17 07:15 09/17/17 07:15 09/17/17 07:15 General: Alert, Oriented x3 HEENT: Atraumatic Neck: Supple Respiratory: Clear to auscultation bilaterally Cardiovascular: No edema, Regular rate/rhythm Gastrointestinal: Normal bowel sounds, Tenderness (Mild generalized tenderness) Musculoskeletal: No clubbing, No swelling Integumentary: No rashes, No breakdown - Problems (1) Septic shock Current Visit: Yes Status: Acute Plan: Patient is 57 years of age admitted with low blood pressure nausea vomiting diarrhea renal function is worse pro calcitonin significantly elevated anemic with a low white count urinalysis negative so far no growth and a cultures patient is on Levaquin Flagyl and vancomycin hemodynamic stable oxygenation satisfactory patient has a large ventral hernia
--- NOTE | 2017-09-17 14:37 | RAD REPORT ---
EXAM DESCRIPTION: RAD - Abdomen 1 View (KUB) - 09/17/2017 2:20 pm CLINICAL HISTORY: SBO COMPARISON: CT 09/15/2017 FINDINGS: Dilated small bowel loops in the central abdomen again noted, most compatible with mechani luis carlos small bowel obstruction, similar in severity to recent CT study. Nasogastric tube appears coiled in the stomach. No free air seen.
[2017-09-17] MEDS: ENOXAPARIN 30 MG/0.3 ML SQ SCH (16:27)
[2017-09-17] MEDS: Levofloxacin 250mg IV 250 MG/50 ML BAG IV SCH (16:27)
--- NOTE | 2017-09-17 17:26 | P.PN ---
Subjective Date of Service: 09/17/17 Chief Complaint: BOWEL OBSTRUCTION Subjective: No new changes (MS DELACRUZ HAS NGT WITH SUCTION. SHE HAS MORE COMPLAINTS OF HER SINUSE BLOCKAGE.) Review of Systems 10-point ROS is otherwise unremarkable General: Weakness, Malaise Physical Examination - Vital Signs Temperature: 98.1 F Blood Pressure: 103/56 Pulse: 88 Respirations: 17 Pulse Ox (%): 100 - Physical Exam General: Alert, Mild distress, Obese, Other (NGT WITH SUCTION) HEENT: Atraumatic, PERRLA, EOMI Neck: Supple, JVD not distended Respiratory: Clear to auscultation bilaterally, Normal air movement Cardiovascular: Regular rate/rhythm, Normal S1 S2 Gastrointestinal: No ascites, No tenderness, No masses, No rebound, No guarding , Hyperactive Musculoskeletal: No tenderness Integumentary: No rashes Neurological: Normal speech, Normal tone, Normal affect Lymphatics: No axilla or inguinal lymphadenopathy - Studies Medications List Reviewed: Yes Assessment And Plan - Current Problems (Diagnosis) (1) Partial small bowel obstruction Current Visit: Yes Status: Acute Plan: IV FLUIDS IV LEV, FLAGYL NGT WITH SUCTION DR WHIPPLE CONSULTED. HAS DIARRHEA ALSO STOOL C DIFF ORDERED. MAY OR MAY NOT NEED SURGERY. WILL DISCUSS WITH . X RAY IS THE SAME. BARIUM TEST IN AM. DW ALSO. (2) Septic shock Current Visit: Yes Status: Acute Plan: IV ABX MOST LIKELY FROM SMALL BOWEL OBST NO OTHER OBVIOUS SIGNS OF INFECTION MORE OF DEHYDRATION FROM BOWEL OBSTRUCTION. (3) Dehydration Current Visit: Yes Status: Acute Plan: IV FLUIDS ARE NOT EFFECTIVE SHE HAS LOW ALBUMIN AND TENDS TO EXTRAVASATE IN THE THIRD SPACE. (4) Acute on chronic renal failure Current Visit: Yes Status: Acute Plan: IV FLUID CHECK LAB DAILY DVT PX BUN, CREAT HAS IMPROVED. ALBUMIN I SLOW START PPN, PICC LINE AND REMOVE FEMORAL LINE.
[2017-09-17] MEDS ORDERED: AA 4.25%/D10W/ELECTROLYTES 2,000 ML, Lipids 20% 250 ML with MULTIVITAMINS INJ 10 ML IV SCH ×3 (18:00)
[2017-09-17] MEDS ORDERED: DEXTROSE 10%-WATER 500 ML IV SCH (18:00)
[2017-09-17] MEDS: AZELASTINE NASAL SPRAY 30 ML NAS SCH (21:37)
[2017-09-17] MEDS: AA 5%/D20W/ELECTROLYTES-TPN 2,000 ML, Lipids 20% 250 ML with MULTIVITAMINS INJ 10 ML IV SCH ×3 (23:17)
[2017-09-18] MEDS: VANCOMYCIN ORAL SOLN 250 MG/5 ML OSYR PO SCH ×2 (05:08→12:18)
[2017-09-18] MEDS: METRONIDAZOLE 500mg IVPB 500 MG/100 ML BAG IV SCH ×3 (05:08→18:19)
[2017-09-18] MEDS: NA CHLORIDE 0.9% 1,000 ML IV SCH (05:09)
[2017-09-18 05:37] LABS: Absolute Lymphocytes (CBC) 0.5 K/uL (0.7-4.9); Absolute Monocytes 0.5 K/uL (0.1-1.3); Absolute Neutrophil 1.9 K/uL (1.8-8.0); Basophils % 0.3 % (0-1.3); Eosinophils % 0.5 % (0-4.4); Hematocrit 25.4 % (36.0-45.0); Lymphocytes % 18.1 % (15.3-44.8); MCH 29.6 pg (27.0-35.0); MCV 93.6 fL (80-100); MPV 8.3 fL (7.6-11.3); Monocytes % 16.3 % (3.3-12.3); RBC Red Blood Cell Count 2.72 M/uL (3.86-4.86)
[2017-09-18 06:01] VITALS: BMI 42.7
[2017-09-18 06:06] LABS: Potassium 3.5 mEq/L (3.6-5.0)
--- NOTE | 2017-09-18 12:16 | RAD REPORT ---
EXAM DESCRIPTION: RAD - Small Bowel Series CLINICAL HISTORY: Small bowel obstruction. COMPARISON: 09/17/2017, 09/15/2017 FINDINGS: The patient was only able to take in limited amount of oral contrast. Dilated small bowel loops are again noted in the mid abdomen. Contrast does pass these loops into the colon however is delayed moderately. Changing caliber is noted along the right lower abdomen adjacen t to several surgical clips suggesting a point of transition. This correlates with CT findings of a v entral hernia in this location. No pneumoperitoneum suspected. IMPRESSION: Moderate mechanical small-bowel obstruction is noted as detailed.
[2017-09-18] MEDS: AZELASTINE NASAL SPRAY 30 ML NAS SCH ×2 (12:17→21:59)
[2017-09-18] MEDS: FAMOTIDINE 20 MG/2 ML VIAL IV SCH (12:17)
[2017-09-18] MEDS: DIVALPROEX DR 500MG TAB PO SCH ×2 (12:19→21:59)
--- NOTE | 2017-09-18 13:59 | P.PN ---
Subjective Date of Service: 09/17/17 Chief Complaint: HYPOTENSION, VEBTRAL HERNIA, PARTIAL BOWEL OBTRUCTION Subjective: Improving Review of Systems General: Fever (NNNNNNNNNNNNNO), Chills (NO) Respiratory: Shortness of Breath (NO) Cardiovascular: Chest Pain (NO) Gastrointestinal: Nausea (O), Vomiting (NO), Abdominal Pain (NO), Diarrhea, Melena (NO), Hematochezia (NO) Physical Examination - Vital Signs Temperature: 98.2 F Blood Pressure: 117/57 Pulse: 91 Respirations: 17 Pulse Ox (%): 100 - Physical Exam General: Alert, In no apparent distress, Cooperative HEENT: PERRLA, EOMI Gastrointestinal: No tenderness, No rebound, No guarding, Distended Integumentary: No rashes - Studies Medications List Reviewed: Yes Assessment And Plan - Plan sbs XRAY TO SEE THE Degree of SBO oob bowel rest
--- NOTE | 2017-09-18 15:50 | PN ---
Date of Progress Note: 09/18/2017 Subjective: Ms. Plunkett has a history of hypertension, history of sepsis. The patient also has a larg e ventral hernia and history of abdominal pain with partial small bowel obstruction history. The pat ient is awake and alert. No distress. She has no abdominal pain at this moment and she has not had that in the last 48 hours. She is passing flatus. She has had a bowel movement. Objective: Vital Signs: Blood pressure 117/57, saturation of 100%, pulse rate 91, and respirations 18. General: The patient is awake and alert, in no distress. HEENT: Pupils anicteric. Abdomen: Soft and depressible. No guarding or rebound. Extremities: Good capillary refill. Review of Systems: Constitutional: Denies any fever. Respiratory: Denies any shortness of breath. Gastrointestinal: The patient has no abdominal pain a t this time. Laboratory Data: Blood work; WBC count of 3 with hemoglobin of 8.1 and platelets of 144. Chemistry shows potassium 3.5 with a creatinine of 3.94. Small bowel series done today, interpreted by Dr. Isma manning and described as dilated small bowel loops in the mid abdomen, contrast does pass these loops into the colon, although there was a delay on it. Assessment: This is a 57-year-old patient with small bowel series showing contrast into the colon al though delayed. This has been worse for the last several months since the GI doctor suspects that an d did an upper endoscopy, colonoscopy, and a small bowel series was ordered but it was not done since the patient has to come to the hospital with an episode of hypotension of unknown origin. The abdom en is benign at this moment. She is passing flatus. She had at least a partial small bowel obstruct ion, not so a surprise due to the body habitus and her large ventral hernia. To have this examined, she will have to have the abdominal wall reconstruction since she could not go on trying to relieve t hose bowel to have better function without going through this gigantic hernias that may require a com ponent separation or even abdominal wall reconstruction that will not be done in this institution. S he had the option of have that done if she improves and starts diet, as an outpatient basis [facility] to have that done if she can tolerate diet. KACY/HAYLIE Voice ID: [id number] Report ID: [id number]
[2017-09-18] MEDS ORDERED: [UNRECOGNIZED DRUG - NUTRITION] IV SCH ×4 (17:00)
[2017-09-18] MEDS: AA 5%/D20W/ELECTROLYTES-TPN 2,000 ML, Lipids 20% 250 ML with MULTIVITAMINS INJ 10 ML IV SCH ×3 (18:19)
[2017-09-18] MEDS ORDERED: SODIUM CHLORIDE 0.9% 10ML INJ IV PRN (21:07)
--- NOTE | 2017-09-18 21:12 | P.PN ---
Subjective Date of Service: 09/18/17 Chief Complaint: VERY WEAK Subjective: No new changes Review of Systems 10-point ROS is otherwise unremarkable General: Weakness, Malaise Gastrointestinal: As per HPI (NGT SUCTION) Physical Examination - Vital Signs Temperature: 97.4 F Blood Pressure: 118/75 Pulse: 95 Respirations: 16 Pulse Ox (%): 100 - Physical Exam General: Alert, Mild distress, Moderate distress, Obese HEENT: Atraumatic, PERRLA, EOMI Neck: Supple, JVD not distended Respiratory: Clear to auscultation bilaterally, Normal air movement Cardiovascular: Regular rate/rhythm, Normal S1 S2 Gastrointestinal: Normal bowel sounds, No tenderness Musculoskeletal: No tenderness Integumentary: No rashes Neurological: Normal speech, Normal tone, Normal affect Lymphatics: No axilla or inguinal lymphadenopathy - Studies Medications List Reviewed: Yes Assessment And Plan - Current Problems (Diagnosis) (1) Partial small bowel obstruction Onset Date: 09/18/17 Current Visit: Yes Status: Acute Plan: IV FLUIDS IV LEV, FLAGYL NGT WITH SUCTION DR WHIPPLE CONSULTED. HAS DIARRHEA ALSO STOOL C DIFF ORDERED. MAY OR MAY NOT NEED SURGERY. WILL DISCUSS WITH . X RAY IS THE SAME. BARIUM TEST IN AM. DW ALSO. NOT IMPROVED I CALLED DR ROTHMAN HE HAS ACCEPTED HER FOR ADMISSION SHE MAY GO TO FLOOR IN AM IF STABLE. STILL FRAIL IN CONDITION. (2) Septic shock Onset Date: 09/18/17 Current Visit: Yes Status: Acute Plan: IV ABX MOST LIKELY FROM SMALL BOWEL OBST NO OTHER OBVIOUS SIGNS OF INFECTION MORE OF DEHYDRATION FROM BOWEL OBSTRUCTION. (3) Dehydration Onset Date: 09/18/17 Current Visit: Yes Status: Acute Plan: IV FLUIDS ARE NOT EFFECTIVE SHE HAS LOW ALBUMIN AND TENDS TO EXTRAVASATE IN THE THIRD SPACE. (4) Acute on chronic renal failure Onset Date: 09/18/17 Current Visit: Yes Status: Acute Plan: IV FLUID CHECK LAB DAILY DVT PX BUN, CREAT HAS IMPROVED. ALBUMIN I SLOW START PPN, PICC LINE AND REMOVE FEMORAL LINE. PRERENAL AZOTEMIA ON TOP OF CKD3 CONSULTED HER NEPH. (5) Anemia Current Visit: Yes Status: Acute Plan: DC LOVENOX START IV PROTONIX CHECK HG DAILY.
--- NOTE | 2017-09-18 23:54 | CON ---
Date of Consultation: 09/18/2017 History Of Present Illness: Acute on chronic kidney injury. History Of Present Illness: The patient was found to have acute on chronic kidney injury. She came to the hospital because of generalized weakness. She has underlying chronic kidney disease, stage 3 advancing to stage IV. Creatinine level back in August was 3.02, prior to that creatinine level was ranging from 1.97 to 2.57. The patient has underlying history of hypertensive kidney disease, benign nephrosclerosis. The patient was found to have moderately severe acute kidney injury, nonoliguric associated with volume depletion and dehydration. Sodium level was up to 148, and there was metabolic acidosis present with hyperchloremic metabolic acidosis pattern. Chloride was 120 and bicarbonate 19. There is high BUN and creatinine ratio, BUN 63 and creatinine 3.94. The patient was found to have bowel obstruction, and she is admitted to ICU. The patient came to the hospital because of diarrhea, nausea, and vomiting. She has evaluation done for C. diff colitis, which at this point is negative. She has pulmonary hypertension, congestive heart failure, COPD, hypoxemic respiratory failure on oxygen, hypertension, and morbid obesity. Review of Systems: Denies fever or chills. Eyes: Denies vision changes. Ears, Nose, Mouth, and Throat: Denies sore throat or earache. Respiratory: Complaining of dyspnea on exertion. Cardiovascular: Denies syncope. Denies chest pain. GI: Complaining of abdominal pain, discomfort, nausea, vomiting, and diarrhea. : Denies dysuria or hematuria. Musculoskeletal: Denies muscle aches. Denies recent gout flare. All other systems reviewed and all are negative. Past Medical History: Hypothyroidism , hypertension, chronic kidney disease stage 3 advancing to stage 4, bipolar disorder, hyperlipidemia, peptic ulcer disease, GERD, pulmonary hypertension, sleep apnea, chronic back pain, degenerative disk disease, hysterectomy, hernia repair, knee surgery, colon resection, back surgery, and sciatica. Family History: Hypertension and blood disorder. Social History: Denies tobacco, alcohol, or illicit drugs. Physical Examination: General: The patient is awake, alert, although confused. Eyes: Anicteric sclerae. EOMI. Ears, Nose, Mouth, and Throat: Oral mucosa moist. No pallor. Neck: Supple. No JVD. No bruits. Lungs: Clear to auscultation bilaterally. Heart: S1, S2. No pericardial friction rub. Abdomen: Obese, soft, nontender. No rebound. No guarding, although bowel sounds are diminished. Neurologic: Moving extremities. Cranial nerves intact. Psychiatric: Alert and oriented x3. Normal affect. Laboratory Data: Creatinine level is 3.60, hemoglobin 10.2, WBC 2.7, and platelet count is 177,000. Sodium 144, potassium 4.1, BUN 57, creatinine 3.47, glucose 115, total bilirubin 0.8, . Impression And Plan: 1. Acute kidney injury on chronic kidney disease. Continue IV fluids to prevent renal hypoperfusion and control volemia. The patient has small bowel obstruction. Continue IV fluids and antibiotics including Levaquin with renally adjusted dosage and Flagyl. 2. The patient will have NG tube with suction. The patient is consulted by Surgical Team for possible surgery. 3. Hypertension, hold blood pressure medication if systolic blood pressure is below 110. 4. Chronic kidney disease, stage 4, advancing. There is an acute kidney injury. The patient may require dialysis if renal function does not improve. 5. Hypernatremia, adjust IV fluids to treat hypernatremia. 6. Metabolic acidosis, reevaluate ABG and adjust treatment with bicarbonate drip as needed.. 7. Chronic kidney disease and acute kidney injury. Plan is to check abdominal ultrasound. CT scan of the abdomen and pelvis without contrast was negative for stone or hydronephrosis, although there are low density renal lesions present, probably cyst. The patient will have further evaluation in outpatient setting and may need an ultrasound. BHARTI/HAYLIE Voice ID: [id number] Report ID: [id number] JALEN
[2017-09-19] MEDS: METRONIDAZOLE 500mg IVPB 500 MG/100 ML BAG IV SCH ×4 (02:13→17:55)
[2017-09-19] MEDS: NA CHLORIDE 0.9% 1,000 ML IV SCH (05:57)
[2017-09-19 06:11] LABS: Absolute Lymphocytes (CBC) 0.6 K/uL (0.7-4.9); Absolute Monocytes 0.8 K/uL (0.1-1.3); Basophils % 0.4 % (0-1.3); Eosinophils % 0.7 % (0-4.4); Lymphocytes % 12.6 % (15.3-44.8); MCH 28.9 pg (27.0-35.0); MCV 92.6 fL (80-100); MPV 8.1 fL (7.6-11.3); Monocytes % 17.8 % (3.3-12.3); RBC Red Blood Cell Count 3.13 M/uL (3.86-4.86)
[2017-09-19 06:48] LABS: Potassium 3.6 mEq/L (3.6-5.0)
[2017-09-19 07:04] LABS: Blood Morphology Comment NOT SEEN (NOT SEEN); Platelet Estimate ADEQ
[2017-09-19] MEDS ORDERED: PANTOPRAZOLE 40 MG INJ IVP SCH (09:00)
[2017-09-19] MEDS: AZELASTINE NASAL SPRAY 30 ML NAS SCH ×2 (10:24→21:32)
[2017-09-19] MEDS: DIVALPROEX DR 500MG TAB PO SCH ×2 (10:25→21:27)
[2017-09-19] MEDS ORDERED: LORazepam 2 MG/ML VIAL IV ONE (10:28)
--- NOTE | 2017-09-19 10:31 | RAD REPORT ---
EXAM DESCRIPTION: CT - Head Brain Wo Cont - 09/19/2017 10:14 am CLINICAL HISTORY: Confusion/alteration of consciousness COMPARISON: 2008 TECHNIQUE: Computed axial tomography of the head was obtained. IV contrast was not requested. All CT scans are performed using dose optimization technique as appropriate and may include automated exposure control or mA/KV adjustment according to patient size. FINDINGS: A 5 millimeter area of increased density has developed within the roof of the third ventri sae. Hounsfield unit 62. The ventricles are normal in caliber. No extra-axial fluid collection is noted. Fluid within the sinuses/ mastoids is not seen. IMPRESSION: 5 millimeter area of increased density developed within the roof of the third ventricle may represent a colloid cyst. Since this has developed since 2008 hemorrhage is a another considerati on. It is recommended that the patient have an MRI for further evaluation. The exam was discussed with Dr. Villegas at approximately 10:20 a.m. 09/19/2017
--- NOTE | 2017-09-19 11:12 | P.PN ---
Subjective Date of Service: 09/19/17 Chief Complaint: weakness, N/V, diarrhea, LAP Subjective: Improving (Minimal lower abdominal pain. No N/V though on TPN and NPO. Still with loose stools. AF today. Small bowel series contrast noted in stool.) Review of Systems 10-point ROS is otherwise unremarkable General: Weakness, Malaise, Other (obese) Gastrointestinal: Abdominal Pain (mild RLQ pain) Neurological: Confusion (mild) Physical Examination - Vital Signs Temperature: 97.5 F Blood Pressure: 130/74 Pulse: 101 Respirations: 28 Pulse Ox (%): 100 - Physical Exam General: Alert, In no apparent distress, Oriented x3 (though slightly confused on surgeons in [place] ([place]oa vs "Kervin") ), Cooperative HEENT: Atraumatic, Normocephalic, PERRLA, EOMI Neck: Supple Respiratory: Diminished (somewhat lethargic ) Cardiovascular: Normal pulses Gastrointestinal: No ascites, No rebound, No guarding, Tenderness (RLQ mild) Neurological: Normal speech - Studies Medications List Reviewed: Yes Assessment And Plan - Current Problems (Diagnosis) (1) Anemia Current Visit: Yes Status: Acute (2) Dehydration Onset Date: 09/18/17 Current Visit: Yes Status: Acute (3) Partial small bowel obstruction Onset Date: 09/18/17 Current Visit: Yes Status: Acute (4) Septic shock Onset Date: 09/18/17 Current Visit: Yes Status: Acute (5) Hernia of anterior abdominal wall Current Visit: Yes Status: Acute (6) Nausea & vomiting Current Visit: Yes Status: Acute (7) Diarrhea Current Visit: Yes Status: Acute - Plan REC: 1) continue IVFs and IV antibiotics 2) guaiac stools X3 (one already negative) & check stool studies 3) serial H&Hs and transfuse prn 4) TPN as per surgery
--- NOTE | 2017-09-19 16:01 | RAD REPORT ---
EXAM DESCRIPTION: MRI - Brain Wo Cont - 09/19/2017 1:38 pm CLINICAL HISTORY: Confusion/alteration of consciousness COMPARISON: September 19, [address] TECHNIQUE: Axial, sagittal, and coronal magnetic images of the brain were obtained. Contrast was not requested FINDINGS: Some of the images are degraded by patient motion artifact There is no evidence of a bleed involving the third ventricle. Based on the CT scan a small colloid cyst is suspected. Diffusion-weighted/ADC mapping does not reveal evidence of acute infarction. The ventricles are normal caliber. An extra-axial fluid collection is not present Mild sphenoid sinusitis is present. The mastoids are clear IMPRESSION: Small colloid cyst is suspected based on the CT scan. No acute abnormality is displayed
--- NOTE | 2017-09-19 17:18 | P.PN ---
Subjective Date of Service: 09/19/17 Chief Complaint: PARTIAL SMALL BOWEL OBST. CHRONIC DIARRHA, Subjective: No new changes, Worsening (GOT CONFUSED TODAY, ABLE TO RECOGNIZE BUT ASKING MANY UNREALISTIC QUESTIONS.) Review of Systems General: Weakness, Malaise Gastrointestinal: As per HPI Physical Examination - Vital Signs Temperature: 97.5 F Blood Pressure: 107/64 Pulse: 105 Respirations: 27 Pulse Ox (%): 96 - Physical Exam General: Alert, Mild distress, Confused, Obese HEENT: Atraumatic, PERRLA, EOMI Neck: Supple, JVD not distended Respiratory: Clear to auscultation bilaterally, Normal air movement Cardiovascular: Regular rate/rhythm, Normal S1 S2 Gastrointestinal: Normal bowel sounds, No tenderness Musculoskeletal: No tenderness Integumentary: No rashes Neurological: Normal strength at 5/5 x4 extr, Other (DELIRIUM.), Abnormal speech (SOME LABORED) Lymphatics: No axilla or inguinal lymphadenopathy - Studies Medications List Reviewed: Yes Assessment And Plan - Current Problems (Diagnosis) (1) Partial small bowel obstruction Onset Date: 09/18/17 Current Visit: Yes Status: Acute Plan: IV FLUIDS IV LEV, FLAGYL NGT WITH SUCTION DR WHIPPLE CONSULTED. HAS DIARRHEA ALSO STOOL C DIFF ORDERED. MAY OR MAY NOT NEED SURGERY. WILL DISCUSS WITH . X RAY IS THE SAME. BARIUM TEST IN AM. DW ALSO. NOT IMPROVED I CALLED DR ROHTMAN HE HAS ACCEPTED HER FOR ADMISSION SHE MAY GO TO FLOOR IN AM IF STABLE. STILL FRAIL IN CONDITION. I AM NOT COMFORTABLE FEEDING HER YET THE REASON SHE CAME HERE- WAS BEING ILL FOR A MONTH OF DIARRHEA, DEHYDRATION ACUTE RENAL FAILURE. THE DIAGNOSIS HAS STILL NOT BEEN REACHED FOR THIS. SHE MAY HAVE PARTIAL BLOCKAGE FROM SCAR OR TUMOR AND MAY HAVE DIARRHEA FROM TUMOR. TO FEED HER WITHOUT PARTICULAR DIAGNOSIS OF BEING ILL AND TREATING THE CAUSE DOES NOT MAKE SENSE FOR NOW. I AM WAITING FOR HINDU BED. DR. ROTHMAN HAS ACCEPTED HER. (2) Septic shock Onset Date: 09/18/17 Current Visit: Yes Status: Acute Plan: IV ABX MOST LIKELY FROM SMALL BOWEL OBST NO OTHER OBVIOUS SIGNS OF INFECTION MORE OF DEHYDRATION FROM BOWEL OBSTRUCTION. (3) Dehydration Onset Date: 09/18/17 Current Visit: Yes Status: Acute Plan: IV FLUIDS ARE NOT EFFECTIVE SHE HAS LOW ALBUMIN AND TENDS TO EXTRAVASATE IN THE THIRD SPACE. (4) Acute on chronic renal failure Onset Date: 09/18/17 Current Visit: Yes Status: Acute Plan: IV FLUID CHECK LAB DAILY DVT PX BUN, CREAT HAS IMPROVED. ALBUMIN I SLOW START PPN, PICC LINE AND REMOVE FEMORAL LINE. PRERENAL AZOTEMIA ON TOP OF CKD3 CONSULTED HER NEPH. (5) Anemia Current Visit: Yes Status: Acute Plan: DC LOVENOX START IV PROTONIX CHECK HG DAILY. (6) Delirium Current Visit: Yes Status: Acute Plan: THIS COULD BE HOSPITAL PSYCHSIS IN PATIENT WHO HAS BIPOLAR DISORDER THIS CAN BE FROM MISSING MEDS ABSORBTION IS POOR I ORDERED ABG BUT COULD NOT BE DONE I ASKED TO REDUCE OXYGEN SHE CAN HAVE HYPERCAPNEA FROM OXYGEN AND OBESITY. CT SCAN AND MRI SHOWED SMALL CYST AND NO BLEEDING.
[2017-09-19 17:20] LABS: UR POTASSIUM 6.9 mEq/L (25-120)
[2017-09-19] MEDS ORDERED: GLUCAGON 1 MG/VIAL IM PRN (17:48)
[2017-09-19] MEDS ORDERED: D50W 25 GM/50 ML SYRINGE IV PRN (17:48)
[2017-09-19] MEDS: Levofloxacin 250mg IV 250 MG/50 ML BAG IV SCH (17:55)
[2017-09-19] MEDS: AA 5%/D20W/ELECTROLYTES-TPN 2,000 ML, Lipids 20% 250 ML with MULTIVITAMINS INJ 10 ML IV SCH ×3 (17:55)
[2017-09-19] MEDS ORDERED: INSULIN -REGULAR HUMAN 50 UNIT/0.5 ML ML SQ SCH (18:00)
[2017-09-19] MEDS ORDERED: THIAMINE 200 MG/2 ML INJ IVP STA (20:49)
[2017-09-19] MEDS ORDERED: D5W 1,000 ML IV SCH (21:00)
[2017-09-19 22:05] VITALS: BP 114/58; TEMP 98.5
[2017-09-20 00:04] VITALS: O2SAT 100
--- NOTE | 2017-09-20 02:06 | PN ---
Date of Progress Note: 09/19/2017 Subjective: The patient underwent MRI today, slightly sleepy after the Ativan. The patient was admi tted with septic shock, possible secondary to small bowel obstruction. The patient had acute kidney injury secondary to poor perfusion, ATN, and toxic ATN secondary to the septic shock. Physical Examination: Vital Signs: When I saw the patient was lying in bed. Blood pressure has been stabilized of Levophe d 144/58, pulse of 108, afebrile. The patient had started to have good urine output, had 650. Chest: Crackles in the base. Heart: S1 and S2. Regular. Abdomen: Soft, nontender. Extremities: Trace edema. Neuro: No focal. Laboratory Data: Sodium 149, potassium 3.6, bicarb 21, chloride 123, BUN 62, creatinine 3.1, GFR of 15, calcium 8.2, WBC 4.4, H and H 9.07/31, platelets of 163, protein in the urine +1. Sodium 63, pota ssium 6.1. ABG still pending. Chest x-ray on the showing mild cardiomegaly and congestion. Medications: Current medications the patient on is IV fluid, normal saline at 50, Levaquin 250 q.48 hour, metronidazole 500 q.6, Levophed has been stopped, lorazepam, pantoprazole, Zofran, insulin, TPN , multivitamin, thiamin. Assessment And Plan: 1.Acute kidney injury on chronic kidney disease, nonoliguric, look to me, on the wet side . The blood pressure has been stabilized. I agree with TPN. I am going to back up on the IV fluid. We will discontinue the normal saline, and we will follow up. 2.I am going to go ahead and send for protein creatinine, and get a chest x-ray for better volume ev aluation. We will place the patient continue on strict I's and O's. 3.Septic shock. Blood culture still negative. The patient is on empiric Gram negative and __. I am going to go ahead and adjust the Levaquin to 250 daily as renal dose, and we will follow up the patient's Flagyl appropriate dose. 4.Hyperchloremic non anion gap. I am going to discontinue the normal saline. We will continue TPN and we will follow up. 5.Small bowel obstruction. Waiting for surgery evaluation and transfer. 6.Hypercapnic respiratory failure. We will follow up ABG. Continue BiPAP. MEGAN/HAYLIE Voice ID: [id number] Report ID: [id number]
[2017-09-20] MEDS ORDERED: Levofloxacin 250mg IV 250 MG/50 ML BAG IV SCH (18:00)
--- NOTE | 2017-09-22 17:23 | P.DS ---
Admission Date: 09/15/17 Discharge Date: 09/22/17 Disposition: TRANSFER TO [facility] Discharge Condition: SERIOUS Reason for Admission: PARTIAL SMALL BOWEL OBST. CHRONIC DIARRHA, - Problems (1) Partial small bowel obstruction Onset Date: 09/18/17 Status: Acute (2) Septic shock Onset Date: 09/18/17 Status: Acute (3) Dehydration Onset Date: 09/18/17 Status: Acute (4) Acute on chronic renal failure Onset Date: 09/18/17 Status: Acute (5) Anemia Status: Acute (6) Delirium Status: Acute Brief History of Present Illness: MS DELACRUZ HAS MANY MEDICAL ISSUES. SHE HAS PULMONARY HTN FROM MEDS IN PAST, SHE HAS CHF, COPD, HYPOXIA, HTN, OBESITY ETC. SHE HAS BEEN GOING TO DR. KAUR FOR 2 MONTHS FOR DIARRHEA AND VOMITING. EGD AND COLONOSCOPY WERE DONE. NO MAJOR FINDINGS ARE FOUND. SHE IS HERE FOR WORSE SYMPTOMS. HER BP IS LOW. SHE IS ON DIURETICS FOR CHF AND HAS KEPT TAKING THEM. SHE NOW IS IN ICU . CT SCAN SHOWS SMALL BOWEL OBSTRUCTION. MS. DELACRUZ HAS BEEN TRANSFERRED TO [facility] FOR HIGHER LEVEL OF CARE. SHE HAS PARTIAL BOWEL OBST WITH VENTRAL HERNIA, RENAL FAILURE, CONFUSION, AGITATION, MORBID OBESITY. SHE MAY NEED SURGERY AT [facility] SHE IS A HIGH RISK PATIENT. DR. ROTHMAN TOOK THE TRANSFER. Vital Signs/Physical Exam: Temp Pulse Resp BP Pulse Ox 98.5 F 108 H 20 114/58 L 100 09/19/17 20:00 09/19/17 20:00 09/19/17 20:00 09/19/17 20:00 09/19/17 20:00 Laboratory Data at Discharge: WBC 4.4 K/uL (4.3-10.9) D 09/19/17 05:54 Hgb 9.1 g/dL (12.0-15.0) L 09/19/17 05:54 Hct 29.0 % (36.0-45.0) L 09/19/17 05:54 Plt Count 163 K/uL (152-406) 09/19/17 05:54 Sodium 149 mEq/L (135-145) H 09/19/17 05:54 Potassium 3.6 mEq/L (3.6-5.0) 09/19/17 05:54 BUN 62 mg/dL (6-20) H 09/19/17 05:54 Creatinine 3.19 mg/dL (0.44-1.00) H 09/19/17 05:54 Glucose 177 mg/dL (65-120) H 09/19/17 05:54 Magnesium 1.8 mg/dL (1.8-2.5) 09/17/17 04:15 Total Bilirubin 0.5 mg/dL (0.3-1.2) 09/17/17 04:15 AST 27 IU/L (10-42) 09/17/17 04:15 ALT 18 IU/L (10-60) 09/17/17 04:15 Alkaline Phosphatase 27 IU/L (42-121) L 09/17/17 04:15 Lipase 47 U/L (22-51) 09/15/17 06:20 Home Medications: Allopurinol 100 mg PO DAILY 09/15/17 Aspirin 81 mg PO DAILY 09/15/17 Cetirizine HCl [Zyrtec] 10 mg PO BEDTIME 09/15/17 Cholecalciferol (Vitamin D3) [Vitamin D 1000 Iu Tab] 1,000 unit PO DAILY Clonazepam [Klonopin] 0.5 mg PO BEDTIME 09/15/17 Divalproex Sodium [Depakote] 500 mg PO BID 09/15/17 Esomeprazole Mag Trihydrate [Nexium] 40 mg PO DAILY 09/15/17 Eszopiclone [Lunesta] 3 mg PO BEDTIME 09/15/17 Fenofibrate [Lipofen] 150 mg PO DAILY 09/15/17 Furosemide [Lasix] 20 mg PO DAILY 09/15/17 Icosapent Ethyl [Vascepa] 2 gm PO BID 09/15/17 Levothyroxine [Synthroid] 100 mcg PO DAILY 09/15/17 Nebivolol HCl [Bystolic] 5 mg PO DAILY 09/15/17 Olopatadine HCl [Patanase] 30.5 gm NS BID PRN 09/15/17 Rosuvastatin Calcium [Crestor] 40 mg PO DAILY 09/15/17 Tadalafil [Cialis] 20 mg PO BID 09/15/17 Verapamil HCl [Verapamil ER] 240 mg PO BEDTIME 09/15/17
--- NOTE | 2017-10-09 09:01 | CON ---
Date of Consultation: 09/18/2017 Reason For Consultation: Mechanical small bowel obstruction, right lower quadrant ventral hernia, and anemia. History Of Present Illness: The patient is a 57-year-old white female with history of pulmonary hypertension, hypertension, chronic kidney disease, irritable bowel syndrome, obstructive sleep apnea, obesity, chronic back pain, sciatica. The patient presented to the hospital due to abdominal pain with nausea, weakness and diarrhea. The patient found to have hemoglobin low at approximately 10.2 and it is decreased since admission down to 8.1, no blood has been seen by the patient or nurses that is no melena, no hematochezia, no coffee-grounds emesis, hemoptysis, hematuria, dysuria or polydipsia. She has had both colonoscopy and EGDs performed recently. We will need to review those findings. The patient also found on CT scan to have a moderate mechanical small bowel obstruction and right lower quadrant ventral hernia. Surgery has been consulted. Due to her high risk with multiple comorbidities and medical disorders such as pulmonary hypertension, it has been decided by surgery to transfer her to tertiary center. Past Medical History: Significant for pulmonary hypertension, hypertension, chronic kidney disease, obstructive sleep apnea, irritable bowel syndrome, gastric reflux disease, hypothyroidism, anemia, chronic back pain, pinched nerves, sciatica, hysterectomy, hernia repair, knee surgery, and colon resection. Family History: Mother with hypertension, blood disorder. Social History: No tobacco. Occasional alcohol. . Review of Systems: Significant for abdominal pain, nausea, diarrhea, weakness, obesity but no melena, hematochezia, hemoptysis, hematuria, dysuria, polydipsia, lower extremity edema she did have lower extremity edema. No shortness of breath. No chest pain. No seizures or syncope. Physical Examination: Vital Signs: The patient is afebrile and temperature of 98.2 degrees Fahrenheit , pulse 80, respirations 14, blood pressure 113/47, O2 saturation 99% on room air. She also had FiO2 of 32% on BiPAP. General: She is an obese female, lying in bed, in mild distress. HEENT: Normocephalic, atraumatic. Anicteric. Pupils equal, round, and reactive to light. clear. Neck: Supple. No masses. Respirations: Clear to auscultation bilaterally but respirations are diminished with labored breathing. Cardiac: Regular rate and rhythm. No gallops. Abdomen: Positive bowel sounds. Soft. Mild tenderness. No peritoneal or Johnson sign. No rebound. Extremities: No clubbing or cyanosis. Lower extremity edema was mild. Neuro: Alert and oriented x3. Able to move all extremities. Laboratory Data: The patient has a white count of 3.0, hemoglobin of 8.1, hematocrit of 25.4, MCV of 94, platelet count 144, polys of 65%, lymphocytes 18% , monocytes 16%, eosinophils 1%. PT . Sodium 148, potassium 3.5, chloride 120, bicarb 19. BUN of 63, creatinine of 3.94, glucose 169, calcium 7.6, magnesium 1.8 yesterday. Yesterday also total bilirubin 0.5, direct bilirubin 0.3, AST 27, ALT of 18, alkaline phosphatase 27, total protein 4.5, albumin 1.9. UA on the , was negative except for 1+ protein. The patient had a CT abdomen and pelvis that revealed moderate mechanical small bowel obstruction. A transition point suspected in the right lower quadrant ventral hernia, otherwise negative. KUB yesterday revealed a very small bowel loops in most compatible with mechanical small-bowel recent CT study approximately 2 days prior. Nasogastric through colon and stomach. No free air seen. Impression: 1. Moderate mechanical small bowel obstruction in the right lower quadrant ventral hernia as noted on CT scan and KUB 2 days later on , revealed continued small-bowel obstruction without change. The patient is a high surgical risk due to pulmonary hypertension, other than multiple comorbidities including morbid obesity, we transferred to tertiary center. 2. Anemia, hemoglobin of 10.2 on the , down to 8.1 on September 18. She has had recent EGD, colonoscopy done. 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 May be related to mechanical small bowel obstruction or other. Recommendation: 1. Continue IV fluids, IV antibiotics. 2. Guaiac stool x3. 3. Review recent EGD, colonoscopy reports. 4. Await ongoing small bowel series, which has been ordered by Surgery, she is having done today. 5. Await transfer to tertiary center for definitive care of this moderate mechanical small bowel obstruction in the right lower quadrant ventral hernia ( high risk with pulmonary hypertension, obesity and other comorbidities). MELANIE/HAYLIE Voice ID: [id number] Report ID: [id number] MTDD
== END 2017-09-19 23:04 | disposition short-term general hospital (02) | DRG 871 ==
LOC: ER 06:05 → ERHOLD 10:46 → 3RD-ICU 11:45 → 2ND 09-19 18:21 → 3RD-ICU 09-19 18:45 → 2ND 09-19 19:49
PROVIDERS: ADMIT Internal Medicine; ATTEND Internal Medicine
DX: K56.600 Partial intestinal obstruction, unspecified as to cause; E86.0 Dehydration; R19.7 Diarrhea, unspecified; N18.4 Chronic kidney disease, stage 4 (severe); J96.92 Respiratory failure, unspecified with hypercapnia; N17.9 Acute kidney failure, unspecified; A41.9 Sepsis, unspecified organism; E87.0 Hyperosmolality and hypernatremia; E66.01 Morbid (severe) obesity due to excess calories; E03.9 Hypothyroidism, unspecified; K21.9 Gastro-esophageal reflux disease without esophagitis; E87.2 Acidosis; R65.21 Severe sepsis with septic shock; I12.9 Hypertensive chronic kidney disease with stage 1 through stage 4 chronic kidney disease, or unspecified chronic kidney disease; I27.20 Pulmonary hypertension, unspecified; R41.0 Disorientation, unspecified; N18.9 Chronic kidney disease, unspecified; G47.30 Sleep apnea, unspecified; K43.9 Ventral hernia without obstruction or gangrene
CPT/HCPCS: 36415; 70450; 70551; 71045; 74018; 74176; 74250; 80048; 80076; 81003; 81015; 82274; 82435; 82962; 83605; 83690; 83735; 84132; 84145; 84300; 85025; 87040; 87493; 87804; 99285; C9113; J1650; J2405; J2543; J3370; J3411; J7030; J7060

== ENCOUNTER 2017-11-22 07:49 | Inpatient (IN) | payer OTHER ==
--- OUTSIDE RECORDS SUMMARY | 2017-11-22 07:52 | XMS REPORT | Clinical Summary ---
:1960 [address] [facility] Address [address] [place] [address] Phone Care Team Providers Name Role Phone Unavailable Primary Care Provider Unavailable Allergies Not on File Current Medications Not on file Active Problems Not on file Social History Tobacco Use Types Packs/Day Years Used Date Never Assessed Sex Assigned at Date Recorded Not on file Last Filed Vital Signs Not on file Plan of Treatment Health Maintenance Due Date Last Done Comments INFLUENZA VACCINE 04/02/2018 Results Not on fileafter 11/21/2016
--- OUTSIDE RECORDS SUMMARY | 2017-11-22 07:52 | XMS REPORT | Clinical Summary ---
:1960 Author Organization [facility] Address [address] [place] [address] Care Team Providers Name Role Phone Asked, No Pcp Primary Care Provider Unavailable Allergies Active Allergy Reactions Severity Noted Date Comments Codeine Itching Low 09/20/2017 Morphine Other (See Comments) High 09/20/2017 Nsaids (Non-Steroidal Medium 09/20/2017 Anti-Inflammatory Drug) Current Medications Prescription Sig. Disp. Refills Start Date End Date Status olopatadine 1 drop 2 (two) Active (PATANOL) 0.1 % times a day. ophthalmic solution allopurinol Take 100 mg by Active (ZYLOPRIM) 100 MG mouth daily. tablet aspirin (ECOTRIN) Take 81 mg by Active 81 MG enteric mouth daily. coated tablet cetirizine (ZyrTEC) Take 10 mg by Active 10 MG tablet mouth nightly. divalproex Take 500 mg by Active (DEPAKOTE) 500 MG mouth 2 (two) EC tablet times a day. esomeprazole Take 40 mg by Active (NexIUM) 40 MG mouth daily capsule before breakfast. fenofibrate Take 150 mg by Active (LOFIBRA) 160 MG mouth daily. tablet levothyroxine Take 100 mcg by Active (SYNTHROID, mouth daily. LEVOXYL) 100 mcg tablet rosuvastatin Take 40 mg by Active (CRESTOR) 40 MG mouth daily. tablet cholecalciferol, Take 1,000 Units Active vitamin D3, by mouth daily. (VITAMIN D3) 1,000 unit tablet albuterol (ACCUNEB) Take 3 mL (2.5 mg 75 mL 12 11/02/2017 12/03/19 Active 2.5 mg /3 mL (0.083 total) by 18 %) nebulizer nebulization solution every 4 (four) hours as needed for shortness of breath for up to 30 days. albuterol (ACCUNEB) Take 3 mL (2.5 mg 360 mL 0 11/02/2017 12/03/19 Active 2.5 mg /3 mL (0.083 total) by 18 %) nebulizer nebulization solution every 4 (four) hours while awake for 30 days. apixaban (ELIQUIS) Take 1 tablet 60 tablet 0 11/02/2017 12/03/19 Active 2.5 mg tablet (2.5 mg total) by 18 mouth 2 (two) times a day for 30 days. ramelteon (ROZEREM) Take 1 tablet (8 11/02/2017 12/03/19 Active 8 mg tablet mg total) by 18 mouth nightly as needed for sleep for up to 30 days. dextrose 10 % Infuse 40 mL/hr 500 mL 11/02/2017 12/03/19 Active infusion into a venous 18 catheter continuously as needed (bedside glucose LESS than 70 mg/dL) for up to 30 days. polyethylene glycol Take 17 g by 11/02/2017 12/03/19 Active (MIRALAX) 17 gram mouth daily as 18 packet needed for constipation for up to 30 days. dextromethorphan-gu Take 5 mL by 11/02/2017 12/03/19 Active aifenesin mouth every 4 18 (ROBITUSSIN-DM) (four) hours as 10-100 mg/5 mL needed for cough liquid for up to 30 days. OLOPATADINE HCL 30.5 g into each 10/15/19 Discontinued (OLOPATADINE NASL) nostril. 18 clonAZEPAM Take 0.5 mg by 11/03/19 Discontinued (KlonoPIN) 0.5 MG mouth nightly. 18 tablet eszopiclone Take 3 mg by 10/15/19 Discontinued (LUNESTA) 3 mg mouth nightly. 18 tablet Take immediately before bedtime furosemide (LASIX) Take 20 mg by 10/15/19 Discontinued 20 mg tablet mouth daily. 18 nebivolol Take 5 mg by 10/15/19 Discontinued (BYSTOLIC) 2.5 MG mouth daily. 18 tablet tadalafil (CIALIS) Take 20 mg by 10/15/19 Discontinued 20 mg tablet mouth 2 (two) 18 times a day. verapamil sustained Take 240 mg by 10/15/19 Discontinued release (CALAN-SR) mouth nightly. 18 240 MG SR tablet acetaminophen Take 2 tablets 10/10/2017 11/10/19 (TYLENOL) 325 MG (650 mg total) by 18 tablet mouth every 6 (six) hours as needed for mild pain or fever for up to 30 days. ipratropium Take 2.5 mL (0.5 75 mL 10/10/2017 11/10/19 (ATROVENT) 0.02 % mg total) by 18 nebulizer solution nebulization every 8 (eight) hours for 30 days. ondansetron ODT Take 1 tablet (4 10/10/2017 11/10/19 (ZOFRAN-ODT) 4 MG mg total) by 18 disintegrating mouth every 8 tablet (eight) hours as needed for nausea or vomiting for up to 30 days. promethazine Take 1 tablet 10/10/2017 11/10/19 (PHENERGAN) 12.5 MG (12.5 mg total) 18 tablet by mouth every 6 (six) hours as needed for nausea or vomiting for up to 30 days. metoprolol tartrate Take 0.5 tablets 30 tablet 0 10/10/2017 11/10/19 (LOPRESSOR) 25 mg (12.5 mg total) 18 tablet by mouth 2 (two) times a day for 30 days. acetaZOLAMIDE Take 1 tablet 60 tablet 0 10/10/2017 11/03/19 Discontinued (DIAMOX) 250 MG (250 mg total) by 18 tablet mouth 2 (two) times a day for 30 days. sevelamer (RENVELA) Take 1 tablet 90 tablet 0 10/10/2017 11/10/19 800 mg tablet (800 mg total) by 18 mouth 3 (three) times a day with meals for 30 days. guaiFENesin Take 10 mL (200 10/10/2017 11/10/19 (ROBITUSSIN) 100 mg total) by 18 mg/5 mL syrup mouth every 4 (four) hours for 30 days. insulin lispro Inject 0-5 Units 10 mL 12 10/10/2017 11/10/19 (HumaLOG) 100 under the skin 18 unit/mL injection every 4 (four) hours for 30 days. meropenem 500 mg in Infuse 500 mg 11/02/2017 11/03/19 Discontinued sodium chloride 0.9 into a venous 18 % MBP 50 mL IVPB catheter every 12 (twelve) hours for 7 days. vancomycin 1,000 mg Infuse 1,000 mg 1 each 0 11/02/2017 11/10/19 in sodium chloride into a venous 18 0.9% 250 mL IVPB catheter daily for 7 days. meropenem 500 mg in Infuse 500 mg 11/02/2017 11/10/19 sodium chloride 0.9 into a venous 18 % MBP 50 mL IVPB catheter every 8 (eight) hours for 7 days. Active Problems Problem Noted Date Encephalopathy acute 10/28/2017 Ramona UTI 10/03/2017 Anemia 10/03/2017 Electrolyte and fluid disorder 10/03/2017 Hypernatremia 10/03/2017 MISBAH (acute kidney injury) 10/03/2017 Pancreatitis 10/03/2017 Mild protein-calorie malnutrition 10/03/2017 Secondary hypertension 10/03/2017 Tachycardia 10/03/2017 Agitation 10/03/2017 Acute respiratory failure with hypoxia 10/02/2017 Septic shock 10/02/2017 Hyperglycemia 10/02/2017 Pulmonary hypertension 10/02/2017 COPD (chronic obstructive pulmonary disease) 10/02/2017 CKD (chronic kidney disease) 10/02/2017 Small bowel obstruction 09/20/2017 Encounters Date Type Specialty Care Team Description 10/29/2017 Procedure Pass General Internal Medicine 10/29/2017 Procedure Pass General Internal Medicine 10/28/2017 - Hospital Encounter General Internal Yvette Craven 11/02/2017 Fadi Quiroga MD 10/09/2017 Procedure Pass Procedural Cardiology 10/09/2017 Surgery Procedural Kilo Oviedo Cv right and left Cardiology heart lv gram [83452 (CPT)] 10/02/2017 Procedure Pass Procedural Cardiology 09/20/2017 - Hospital Encounter Cardiology Berhane Roa Septic shock ( Primary Dx); 10/14/2017 MD Matty Acute respiratory failure with hypoxia; Preeti Will, Hyperglycemia; Chronic obstructive pulmonary disease, unspecified COPD type 09/20/2017 Procedure Pass Cardiology after 11/21/2016 Social History Tobacco Use Types Packs/Day Years Used Date Unknown If Ever Smoked Sex Assigned at Date Recorded Not on file Last Filed Vital Signs Vital Sign Reading Time Taken Blood Pressure 130/68 11/02/2017 7:23 AM CDT Pulse 99 11/02/2017 11:48 AM CDT Temperature 36.9 C (98.4 F) 11/02/2017 7:23 AM CDT Respiratory Rate 18 11/02/2017 11:48 AM CDT Oxygen Saturation 96% 11/02/2017 9:24 AM CDT Inhaled Oxygen Concentration - - Weight 103 kg (226 lb 2 oz) 10/13/2017 6:55 AM CDT Height 162.6 cm (5' 4") 09/27/2017 11:00 AM CDT Body Mass Index 38.81 10/13/2017 6:55 AM CDT Plan of Treatment Health Maintenance Due Date Last Done Comments CERVICAL CANCER SCREENING 1979 BREAST CANCER SCREENING 2008 COLON CANCER SCREENING 2008 SHINGRIX VACCINE (#1) 2008 INFLUENZA VACCINE 01/31/2018 Procedures Procedure Name Priority Date/Time Associated Comments Diagnosis EEG AWAKE/ASLEEP LESS Routine 10/31/2017 11:27 Results for this THAN 41 MIN AM CDT procedure are in the results section. ECHOCARDIOGRAM WITH Routine 10/31/2017 7:30 Results for this AGITATED SALINE (96184) AM CDT procedure are in the results section. HC CATH DUAL LUMEN PICC Routine 10/30/2017 8:43 Results for this AM CDT procedure are in the results section. HC US GUIDED VASCULAR Routine 10/30/2017 8:43 Results for this ACCESS AM CDT procedure are in the results section. HC CVL PICC INSERT 5 Routine 10/30/2017 8:43 Results for this YRS OR > AM CDT procedure are in the results section. CV RIGHT HEART LEFT Routine 10/09/2017 3:17 Results for this HEART CATH W LV GRAM PM CDT procedure are in the results section. WV INSERT NON-TUNNEL CV Routine 10/01/2017 5:34 Septic shock Results for this CATH PM CDT procedure are in the results section. ECHOCARDIOGRAM 2D STAT 10/01/2017 1:45 Results for this LIMITED PM CDT procedure are in the results section. ECHOCARDIOGRAM 2D Routine 09/24/2017 1:29 Results for this COMPLETE W MMODE PM CDT procedure are in SPECTRAL COLOR DOPPLER the results (83718) section. after 11/21/2016 Results POC glucose (11/02/2017 12:02 PM)Only the most recent of109 resultswithin the time period is included. Component Value Ref Range POC glucose 138 (H) 65 - 99 mg/dL Comment: [facility] Notified RN Meter ID: [id number] Meter Tester Primary: Brie Israel Specimen Performing Laboratory [facility] OF [facility] AND [facility]OMIC MEDICINE [address] [place] [address] CBC with platelet and differential (11/02/2017 8:01 AM)Only the most recent of24 resultswithin the time period is included. Component Value Ref Range WBC 3.20 (L) 4.50 - 11.00 k/uL RBC 2.41 (L) 4.20 - 5.50 m/uL HGB 7.4 (L) 12.0 - 16.0 g/dL HCT 24.5 (L) 37.0 - 47.0 % MCV 101.7 (H) 82.0 - 100.0 fL MCH 30.7 27.0 - 34.0 pg MCHC 30.2 (L) 31.0 - 37.0 g/dL RDW - SD 59.9 (H) 37.0 - 55.0 fL MPV 9.9 8.8 - 13.2 fL Platelet count 166 150 - 400 k/uL Nucleated RBC 0.00 /100 WBC Neutrophils 41.9 39.0 - 69.0 % Lymphocytes 27.8 25.0 - 45.0 % Monocytes 19.1 (H) 0.0 - 10.0 % Eosinophils 5.6 (H) 0.0 - 5.0 % Basophils 0.9 0.0 - 1.0 % Immature granulocytes 4.7 (H)Comment: "Immature granulocytes" 0.0 - 1.0 % (promyelocytes, myelocytes, metamyelocytes) Specimen Performing Laboratory Blood [facility] [address] [place] [address] Estimated GFR (11/02/2017 4:00 AM)Only the most recent of38 resultswithin the time period is included. Component Value Ref Range GFR Non Af Amer 29 (A) mL/min/1.73 m2 GFR Af Amer 35 (A) mL/min/1.73 m2 Comment: Chronic kidney disease: <60 mL/min/1.73m2 Kidney failure: <15 mL/min/1.73m2 The estimated GFR is calculated from the IDMS-traceable Modification of Diet in Renal Disease Equation. The accuracy of the calculation is poor when the creatinine is normal. Calculated values >90 mL/min/1.73m2 are not reported. This equation has not been validated in children (<18 years), women, the elderly (>70 years), or ethnic groups other than Caucasians and Americans. Specimen Performing Laboratory Plasma specimen [facility]PART[facility] PATHOLOGY AND [address] [address] Phosphorus level (11/02/2017 4:00 AM)Only the most recent of20 resultswithin the time period is included. Component Value Ref Range Phosphorus 2.8 2.4 - 4.5 mg/dL Specimen Performing Laboratory Plasma specimen [facility] [address] [address] Magnesium level (11/02/2017 4:00 AM)Only the most recent of23 resultswithin the time period is included. Component Value Ref Range Magnesium 1.8 1.6 - 2.6 mg/dL Specimen Performing Laboratory Plasma specimen [facility] PATHOLOGY [address] [address] Ferritin level (11/02/2017 4:00 AM) Component Value Ref Range Ferritin level 401 (H) 13 - 150 ng/mL Specimen Performing Laboratory Plasma specimen [facility] PATHOLOGY [address] [address] Narrative SHERRI added and read back to Be Criddell at 14:16 11/02/17 [id number] Ionized calcium (11/02/2017 4:00 AM)Only the most recent of7 resultswithin the time period is included. Component Value Ref Range pH 7.52 Ionized calcium 1.16 1.11 - 1.32 mmol/L Specimen Performing Laboratory Plasma specimen [facility] PATH[facility] [address] [address] Basic metabolic panel (11/02/2017 4:00 AM)Only the most recent of36 resultswithin the time period is included. Component Value Ref Range Sodium 145 135 - 148 mEq/L Potassium 4.9 3.5 - 5.0 mEq/L Chloride 109 98 - 112 mEq/L CO2 27 24 - 31 mEq/L Anion gap 9 7 - 15 mEq/L Comment: Starting from October , anion gap calculation no longer incorporates potassium. Please note the change. BUN 22 (H) 6 - 20 mg/dL Creatinine 1.8 (H) 0.5 - 0.9 mg/dL Glucose 90 65 - 99 mg/dL Calcium 8.9 8.3 - 10.2 mg/dL Specimen Performing Laboratory Plasma specimen [facility] GENOMIC MEDICINE [address] [place] [address] Methylmalonic acid, serum (11/01/2017 3:57 PM) Component Value Ref Range Methylmalonic acid 0.48 (H) 0.00 - 0.40 umol/L Comment: Slight elevation 0.41-0.99 umol/L Consistent with mild vitamin B12 deficiency, renal insufficiency, or intravascular volume contraction. Moderate elevation 1.00-9.99 umol/L Consistent with mild vitamin B12 deficiency. Massive elevation - Greater than or equal to 10 umol/L Consistent with significant vitamin B12 deficiency or with inborn errors of metabolism. INTERPRETIVE INFORMATION: MMA Serum/Plasma, Vitamin B12 Status Test developed and characteristics determined by [employer] [facility]. See Compliance Statement B: [employer]/CS Performed by [facility] [facility], [address] [place] [id number] [email or web address], Reginaldo Savage MD - Lab. Director Specimen Performing Laboratory Serum [facility] [address] [place] [address] Vitamin C level, plasma (11/01/2017 3:57 PM) Component Value Ref Range Vitamin C, plasma 12 (L) 23 - 114 umol/L Comment: INTERPRETIVE DATA: Vitamin C (Ascorbic Acid), Plasma Vitamin C concentrations lower than 11 umol/L indicate deficiency. Concentrations between 11 and 23 umol/L are consistent with a moderate risk of deficiency due to inadequate tissue stores. Vitamin C concentration is reported as micromoles per liter (umol/L). To convert concentration to milligrams per deciliter (mg/dL), multiply the result by 0.0176. Test developed and characteristics determined by [facility] [facility]. See Compliance Statement B: [employer] Performed by [facility], [address] [place] [id number] [email or web address], Reginaldo Savage MD - Lab. Director Specimen Performing Laboratory Plasma specimen [facility] [address] [address] Vitamin D 25 hydroxy level (11/01/2017 3:57 PM) Component Value Ref Range Vitamin D, 25-hydroxy 36.7 30.0 - 150.0 ng/mL Comment: This assay reports the sum of 25-hydroxy vitamin D3 and 25-hydroxy vitamin D2. Reference range: 0-17 years: Deficiency: less than 20ng/mL Optimum level: greater than or equal to 20 ng/mL. 18 years and older: Deficiency: less than 20ng/mL Insufficiency: 20-29 ng/mL Optimum Level: 30-80 ng/mL The assay reportable range is 3.4155.9 ng/mL. Levels higher than 150 ng/mL may be associated with toxicity. If toxicity is clinically suspected and the reported result is >155.9 ng/mL,contact lab for alternative methods to obtain a definitivelevel. If separate quantitation of 25-hydroxy vitamin D3 and 25-hydroxy vitamin D2 is needed, please contact lab for alternative methods. Specimen Performing Laboratory Blood [facility]OMIC [facility]ICINE [address] [place], [place] [id number] [place] Modified Barium Swallow (11/01/2017 3:22 PM) Specimen Performing Laboratory [facility] [address] [place] [address] Narrative EXAMINATION:FL MODIFIED BARIUM SWALLOW CLINICAL HISTORY:DYSPHAGIAOROPHARYNGEAL , CHF, COPD COMPARISON:None. Radiation dose: 2.3 mGy FINDINGS: The patient swallowed varying consistencies of barium under direct lateral fluoroscopic evaluation. The study was performed in conjunction with speech pathology. IMPRESSION: Normal study. The patient swallowed each consistency without evidence of laryngeal penetration or aspiration. Please refer to Speech Pathology report for further details. [facility]-[id number] Procedure Note [facility], Radiology Results Incoming - 11/03/2017 2:59 PM CDT EXAMINATION: FL MODIFIED BARIUM SWALLOW CLINICAL HISTORY: DYSPHAGIA OROPHARYNGEAL , CHF, COPD COMPARISON: None. Radiation dose: 2.3 mGy FINDINGS: The patient swallowed varying consistencies of barium under direct lateral fluoroscopic evaluation. The study was performed in conjunction with speech pathology. IMPRESSION: Normal study. The patient swallowed each consistency without evidence of laryngeal penetration or aspiration. Please refer to Speech Pathology report for further details. [facility]-[id number] Valproic acid level (11/01/2017 4:00 AM)Only the most recent of2 resultswithin the time period is included. Component Value Ref Range Valproic acid 14.7 (L) 50.0 - 100.0 ug/mL Comment: Therapeutic Range: 50 - 100 ug/mL Specimen Performing Laboratory Plasma specimen [facility] OF PATHOLOGY AND [facility] [address] [place] [address] Respiratory pathogen panel (10/31/2017 1:32 PM)Only the most recent of3 resultswithin the time period is included. Component Value Ref Range Respiratory pathogen panel Negative for all pathogens tested: Negative for Adenovirus Negative for Coronavirus HKU1 Negative for Coronavirus NL63 Negative for Coronavirus 229E Negative for Coronavirus OC43 Negative for Human Metapneumovirus Negative for Rhinovirus/Enterovirus Negative for Influenza A Negative for Influenza A/H1 Negative for Influenza A/H3 Negative for Influenza A/H1-2009 Negative for Influenza B Negative for Parainfluenza Virus 1 Negative for Parainfluenza Virus 2 Negative for Parainfluenza Virus 3 Negative for Parainfluenza Virus 4 Negative for Respiratory Syncytial Virus Negative for Bordetella pertussis Negative for Chlamydophila pneumoniae Negative for Mycoplasma pneumoniae This real-time PCR assay detects the presence of nucleic acids (RNA or DNA) for the respiratory pathogens listed. A result of "Not-detected" does not exclude the possibility of the presence of one or more pathogens at concentrations less than the detectable limits of the assay. Comment: Specimen Information Specimen Source: Nares Specimen Site: Not specified Specimen Performing Laboratory Nares - Not specified [facility] [address] [place] [address] Vancomycin level, trough (10/31/2017 1:30 PM) Component Value Ref Range Vancomycin, trough 17.4 10.0 - 20.0 ug/mL Comment: Therapeutic Ranges: Peak 30.0 - 40.0 ug/mL Iwrbty25.0 - 20.0 ug/mL Specimen Performing Laboratory Serum [facility] OF [facility]OLOGY AND [facility] [address] [place] [address] EEG (routine) (10/31/2017 11:27 AM) Narrative EEG AWAKE AND ASLEEP Date of Service: 10/31/17 Awake Recordings: The occipital dominant rhythm is 5-6 Hz and is poorly sustained. 4-5 Hz and 1.5-3 Hz activity is present in all regions. 18-22 Hz activity was present in all regions. Sleep Recording: No epileptiform activity was recorded. Hyperventilation: Was not performed. Photic Stimulation: Was not performed. Impression: The findings are consistent with a diffuse disturbance in brain function. No seizures occurred. ICD-10 Code: R569 Echocardiogram complete w contrast and 3D if needed (10/31/2017 7:30 AM) Specimen Performing Laboratory [facility] [address] [place] [address] Narrative Echocardiography Report [address] [facility] [address], [place] [address] Pat.Name:FANNIE DELACRUZ Pat.ID:[id number] .Date: 10/31/2017Refer.MD:YVETTE CRAVEN MD Exam Time: 7:04:00 AMStudy Type:Routine Echo Height:65inWeight: 226lb BSA: 2.09 m2 DOBAge:1960,57Y Sex: FEMALEBP:128/60 HR:102 bpm Sonogrphr: Noreen Mejia RDCS Pat. Stat.:Inpatient Room:[place] [address] Study Status:Final Echo Event ID:[id number] Order ID:[id number] Reason for Study:PULMONARY HTN, STROKE History / Clinical:Pulmonary Hypertension Procedures:2D Echo, Colorflow Doppler, Portable, Intravenous Saline Contrast Race:C SUMMARY: LV EF is normal. RV systolic function is normal. No intracardiac shunt detected. Suboptimal/insufficient TR jet. Estimated PA systolic pressure is at least 41 mmHg, assuming a mean RAP of 5 mmHg. FINDINGS: LV: LV size is normal. Concentric left ventricular remodeling. LVEF is normal. Overall wall motion is normal. Estimated EFis 65-69% RV: RV size is normal. RV systolic function is normal. RV wall motionis normal. LA: LA size is normal. RA: RA size is normal. AO: Aortic root diameter is normal. LORA: Small posterior pericardial effusion. Cntrst: No intracardiac shunt detected. AV: Mild thickening and calcification of AV leaflets. A trace of aorticregurgitation. MV: Mild mitral annular calcification. PV: No structural PV abnormalities noted. TV: No structural TV abnormalities noted. A trace of tricuspid regurgitation Other:Suboptimal/insufficient TR jet. Estimated PA systolic pressureis at least 41 mmHg, assuming a mean RAP of 5 mmHg. MEASUREMENTS: 2D Parasternal [place] Ao An2.3 cmLVPWd1.3 cm LVOT 2.1 cmLA Ds3.6 cm LVIDd3.5 cmIndex 1.7 cm/m Ao Rtd 3.3 cm Index1.6 cm/m LVIDs2.2 cmLV Yrqe808.2 g(87-129) LV%fs 37.9 % LVM Index 72.8 g/m2 IVSd 1.2 cmRWT0.8 LA Sng Plane LA Area 22 cm2(8.8-23.4) LA Vol 53.7 ml Index25.7 ml/m LA LngAx 7.1 cm RA Sng Plane RA Area 19.1 cm2(8.3-19.5) RA Vol48.5 ml Index23.2 ml/m RA LngAx 6.2 cm Signed 10/31/2017 05:08 PM Keyonna Ward M.D. Procedure Note Interface, Radiology Results In - 10/31/2017 5:08 PM CDT Echocardiography Report [id number]Name: FANNIE DELACRUZ Pat.ID: [id number] .Date: 10/31/2017 Refer.MD: YVETTE CRAVEN MD Exam Time: 7:04:00 AM Study Type:Routine Echo Height: 65in Weight: 226lb BSA: 2.09 m2 Age: 10 1960,57Y Sex: FEMALE BP: 128/60 HR: 102 bpm Sonogrphr: Noreen Mejia RDCS [facility]. Stat.:Inpatient Room: [place] [address] Study Status:Final Echo Event ID:[id number] Order ID: [id number] Reason for Study:PULMONARY HTN, STROKE History / Clinical:Pulmonary Hypertension Procedures:2D Echo, Colorflow Doppler, Portable, Intravenous Saline Contrast Race: C SUMMARY: LV EF is normal. RV systolic function is normal. No intracardiac shunt detected. Suboptimal/insufficient TR jet. Estimated PA systolic pressure is at least 41 mmHg, assuming a mean RAP of 5 mmHg. FINDINGS: LV: LV size is normal. Concentric left ventricular remodeling. LV EF is normal. Overall wall motion is normal. Estimated EF is 65-69% RV: RV size is normal. RV systolic function is normal. RV wall motion is normal. LA: LA size is normal. RA: RA size is normal. AO: Aortic root diameter is normal. LORA: Small posterior pericardial effusion. Cntrst: No intracardiac shunt detected. AV: Mild thickening and calcification of AV leaflets. A trace of aortic regurgitation. MV: Mild mitral annular calcification. PV: No structural PV abnormalities noted. TV: No structural TV abnormalities noted. A trace of tricuspid regurgitation Other: Suboptimal/insufficient TR jet. Estimated PA systolic pressure is at least 41 mmHg, assuming a mean RAP of 5 mmHg. MEASUREMENTS: 2D Parasternal [place] Ao An 2.3 cm LVPWd 1.3 cm LVOT 2.1 cm LA Ds 3.6 cm LVIDd 3.5 cm Index 1.7 cm/m Ao Rtd 3.3 cm Index 1.6 cm/m LVIDs 2.2 cm LV Mass 152.2 g (87-129) LV%fs 37.9 % LVM Index 72.8 g/m2 IVSd 1.2 cm RWT 0.8 LA Sng Plane LA Area 22 cm2 (8.8-23.4) LA Vol 53.7 ml Index 25.7 ml/m LA LngAx 7.1 cm RA Sng Plane RA Area 19.1 cm2 (8.3-19.5) RA Vol 48.5 ml Index 23.2 ml/m RA LngAx 6.2 cm Signed 10/31/2017 05:08 PM Keyonna Ward M.D. Chloride level, urine, random (10/30/2017 11:00 PM) Component Value Ref Range Chloride, urine, random 54 mEq/L Specimen Performing Laboratory Urine [facility] PATH[facility] GENOMIC MEDICINE [address] [place] [address] Pv carotid duplex (10/30/2017 10:25 PM) Specimen Performing Laboratory [facility] [address] [place] [address] Narrative Vascular Ultrasound Laboratory Carotid Artery Duplex Report [address] [place] [address] For quality tech purposes, the categorization of the degree of the stenosis of this exam is based on criteria described in the IAC carotid stenosis grading white paper( www.intersocietal.org/Vascular) and Lauro Webster., Vijay Lyon., et al. Carotid artery stenosis: rice-scale and Doppler [place] diagnosis--Society of Radiologists in Ultrasound Consensus Conference. Radiology. 2003 Nov; 229(2):340-6. Pat.Name:FANNIE DELACRUZ Pat.ID:[id number] St.Date: 10/30/2017 Refer.MD:OLAMIDE MAYO MD Exam Time: 7:59:00 PMStudy Type:Carotid DOBAge:1960,57Y Sex: FEMALE Sonogrphr: Forde Vi, RVTPat. Stat.:Inpatient Room:[address] TapeVol: ZOE, [facility] - 4: [id number] Echo Event ID:[id number] Order ID:[id number] Reason for Study:Evaluate for TIA or stroke. History of AMS, CHF, pulmonary HTN, COPD, CKD, HTN, HLD Race:C SUMMARY: PHYSICAL ASSESSMENT BloodPulsesCarotid Pressure Carotid TemporalBruit Right 122/58 ++0 Left ___ ++0 CAROTID ARTERY SCAN RIGHT: There is smooth intimal lining seen in the common carotid artery. There is minimal hard and calcified plaque seen in the bulb area extending into proximal internal carotid artery. The external carotid artery is clear. There is elevatedvelocity seen in the proximal and distal internal carotid artery. Colorflow and Doppler signals are disturbed. The distal internal carotid artery is tortuous. There is also elevated velocity in the vertebral artery. Antegrade flow is noted. LEFT: There is smooth intimal lining seen in the common carotid artery, bulb area, external and internal carotid artery. Colorflow and Doppler signals are normal. The vertebral artery is not seen. PRELIMINARY FINDINGS 1. 50-69% stenosis of right internal carotid artery (per velocity). 2. <50% stenosis of left internal carotid artery. 3. <50% stenosis of external carotid artery, bilaterally. 4. Elevated velocity is seen in the right vertebral artery. 5. Antegrade flow is seen in the right vertebral artery. 6. The left vertebral artery is not seen. PHYSICIAN INTERPRETATION Moderate 50-69 % stenosis of the right internal carotid artery based on velocity criteria (PSV > 125 cm/s, EDV 40-100 cm/sec ). Tortuous distal right internal carotid artery (image 21). Right vertebral artery doppler wave forms are antegrade. Elevated velocity seen in the right vertebral artery. Unable to visualize left vertebral artery. Carotid Findings:RightLeft Verteb.Flw AntegradeNot Visualized Subclavian TriphasicTriphasic MEASUREMENTS: DOPPLER Right CCA Dist CCA Dist PSV 120 cm/sCCA Dist EDV47.1 cm/s Right CCA Mid CCA Mid [id number] cm/sCCA Mid EDV 52.7 cm /s Right CCA Prox CCA Prox PSV 150 cm/sCCA Prox EDV61 cm /s Right ECA Prox ECA Prox PSV98.3 cm/sECA Prox EDV13.6 cm/s Right ICA Dist ICA Dist PSV 148 cm/Rajeev Dist EDV55.6 cm/s Right ICA Mid ICA Mid [id number] cm/Rajeev Mid EDV 58 cm/s Right ICA Prox ICA Prox PSV 170 cm/Rajeev Prox EDV66.7 cm/s Right Vertebral Vertebral BBK235 cm/sVertebral EDV 52.8 cm/s Right Subclavian Subclavian PSV 162 cm/s Left CCA Dist CCA Dist PSV 102 cm/sCCA Dist EDV41.2 cm/s Left CCA Mid CCA Mid [id number] cm/sCCA Mid EDV 47.2 cm /s Left CCA Prox CCA Prox PSV 139 cm/sCCA Prox EDV44.4 cm/s ECA Prox ECA Prox PSV 147 cm/sECA Prox EDV16.4 cm/s Left ICA Dist ICA Dist PSV 120 cm/Rajeev Dist EDV38.7 cm/s Left ICA Mid ICA Mid [id number] cm/Rajeev Mid EDV 51 cm/s Left ICA Prox ICA Prox PSV 119 cm/Rajeev Prox EDV55.7 cm/s Left Subclavian Subclavian PSV 154 cm/s Right ICA/CCA Ratio ICA/CCA PSV 1.22 Left ICA/CCA Ratio ICA/CCA PSV0.856 Signed 10/31/2017 09:54 AM Chano Montano MD, RPVI Procedure Note Interface, Radiology Results In - 10/31/2017 9:54 AM CDT [facility] Ul[facility] Laboratory Carotid Artery Duplex Report [id number] [address] For quality tech purposes, the categorization of the degree of the stenosis of this exam is based on criteria described in the IAC carotid stenosis grading white paper( www.intersocietal.org/Vascular) and Lauro Webster., Vijay Lyon., et al. Carotid artery stenosis: rice-scale and Doppler [place] diagnosis--Society of Radiologists in Ultrasound Consensus Conference. Radiology. 2003 May; 229(2):340-6. Pat.Name: FANNIE DELACRUZ Pat.ID: [id number] .Date: 10/30/2017 Refer.MD: OLAMIDE MAYO MD Exam Time: 7:59:00 PM Study Type:Carotid Age: 10 1960,57Y Sex: FEMALE Sonogrphr: Maurisio Murillo RVT Pat. Stat.:Inpatient Room: [address] Vol: , CPT - 4: [address] Echo Event ID:[id number] Order ID: [id number] Reason for Study:Evaluate for TIA or stroke. History of AMS, CHF, pulmonary HTN, COPD, CKD, HTN, HLD Race: C SUMMARY: PHYSICAL ASSESSMENT Blood Pulses Carotid Pressure Carotid Temporal Bruit Right 122/58 + + 0 Left ___ + + 0 CAROTID ARTERY SCAN RIGHT: There is smooth intimal lining seen in the common carotid artery. There is minimal hard and calcified plaque seen in the bulb area extending into proximal internal carotid artery. The external carotid artery is clear. There is elevated velocity seen in the proximal and distal internal carotid artery. Colorflow and Doppler signals are disturbed. The distal internal carotid artery is tortuous. There is also elevated velocity in the vertebral artery. Antegrade flow is noted. LEFT: There is smooth intimal lining seen in the common carotid artery, bulb area, external and internal carotid artery. Colorflow and Doppler signals are normal. The vertebral artery is not seen. PRELIMINARY FINDINGS 1. 50-69% stenosis of right internal carotid artery (per velocity). 2. <50% stenosis of left internal carotid artery. 3. <50% stenosis of external carotid artery, bilaterally. 4. Elevated velocity is seen in the right vertebral artery. 5. Antegrade flow is seen in the right vertebral artery. 6. The left vertebral artery is not seen. PHYSICIAN INTERPRETATION Moderate 50-69 % stenosis of the right internal carotid artery based on velocity criteria (PSV > 125 cm/s, EDV 40-100 cm/sec ). Tortuous distal right internal carotid artery (image 21). Right vertebral artery doppler wave forms are antegrade. Elevated velocity seen in the right vertebral artery. Unable to visualize left vertebral artery. Carotid Findings: Right Left Verteb.Flw Antegrade Not Visualized Subclavian Triphasic Triphasic MEASUREMENTS: DOPPLER Right CCA Dist CCA Dist PSV 120 cm/s CCA Dist EDV 47.1 cm/s Right CCA Mid CCA Mid PSV 139 cm/s CCA Mid EDV 52.7 cm/s Right CCA Prox CCA Prox PSV 150 cm/s CCA Prox EDV 61 cm/s Right ECA Prox ECA Prox PSV 98.3 cm/s ECA Prox EDV 13.6 cm/s Right ICA Dist ICA Dist PSV 148 cm/s ICA Dist EDV 55.6 cm/s Right ICA Mid ICA Mid PSV 116 cm/s ICA Mid EDV 58 cm/s Right ICA Prox ICA Prox PSV 170 cm/s ICA Prox EDV 66.7 cm/s Right Vertebral Vertebral PSV 123 cm/s Vertebral EDV 52.8 cm/s Right Subclavian Subclavian PSV 162 cm/s Left CCA Dist CCA Dist PSV 102 cm/s CCA Dist EDV 41.2 cm/s Left CCA Mid CCA Mid PSV 139 cm/s CCA Mid EDV 47.2 cm/s Left CCA Prox CCA Prox PSV 139 cm/s CCA Prox EDV 44.4 cm/s ECA Prox ECA Prox PSV 147 cm/s ECA Prox EDV 16.4 cm/s Left ICA Dist ICA Dist PSV 120 cm/s ICA Dist EDV 38.7 cm/s Left ICA Mid ICA Mid PSV 121 cm/s ICA Mid EDV 51 cm/s Left ICA Prox ICA Prox PSV 119 cm/s ICA Prox EDV 55.7 cm/s Left Subclavian Subclavian PSV 154 cm/s Right ICA/CCA Ratio ICA/CCA PSV 1.22 Left ICA/CCA Ratio ICA/CCA PSV 0.856 Signed 10/31/2017 09:54 AM Chano Montano MD, VI CT Chest Wo Contrast (10/30/2017 1:14 PM)Only the most recent of3 resultswithin the time period is included. Specimen Performing Laboratory [facility] [address] [place] [address] Narrative EXAMINATION: CT CHEST WO CONTRAST CLINICAL HISTORY:PNEUMONIAUNRESOLVED, high resolution CT chest TECHNIQUE: Multiple axial images of the chest were obtained without contrast. Sagittal and coronal computerized reformatted images were also obtained.High resolution images in supine inspiration also archived and interpreted.All CT images were acquired using radiation dose lowering technique with automated exposure control and / or iterative reconstruction. COMPARISON: CT chest, 10/01/2017 IMPRESSION: 1.Airspace consolidation in the basal lower lobes bilaterally, left more than right, is worse than before. Findings indicative of pneumonia, consider aspiration given the distribution. 2.Near complete resolution of the posterior right upper lobe pneumonia seen previously. 3.Small focus of airspace opacity posteriorly in the left upper lobe is likely pneumonia as well. 3 month follow-up chest CT advised to ensure resolution following therapy. Lungs otherwise clear. High-resolution images show no fibrosis, bronchiectasis or honeycombing. 4.A 1.3 cm hypodensity inferiorly in the right thyroid lobe can be better assessed with ultrasound as an outpatient once acute issues are resolved, grossly stable. Mild mediastinal lymphadenopathy is likely reactive to the pneumonia. No axillary or definite hilar lymphadenopathy detected on this limited noncontrast study. 5.Heart is enlarged. Small pericardial effusion. Tiny pleural effusions bilaterally. 6.Hiatus hernia mostly containing fat. 7.Calcified plaque within the thoracic aorta. Main pulmonary artery is dilated, indicating pulmonary hypertension, measures 3.7 cm transverse similar to prior. 8.Degenerative change in the spine. SUMMARY: Bibasilar pneumonia, consider aspiration. Near resolution of the right upper lobe pneumonia. Small opacity left upper lobe likely pneumonia as well. 3 month follow-up chest CT advised to ensure resolution following therapy. Incidental findings, see above. [facility]-[id number] Procedure Note Interface, Radiology Results - 10/30/2017 1:49 PM CDT EXAMINATION: CT CHEST WO CONTRAST CLINICAL HISTORY: PNEUMONIA UNRESOLVED, high resolution CT chest TECHNIQUE: Multiple axial images of the chest were obtained without contrast. Sagittal and coronal computerized reformatted images were also obtained. High resolution images in supine inspiration also archived and interpreted. All CT images were acquired using radiation dose lowering technique with automated exposure control and / or iterative reconstruction. COMPARISON: CT chest, 10/01/2017 IMPRESSION: 1. Airspace consolidation in the basal lower lobes bilaterally, left more than right, is worse than before. Findings indicative of pneumonia, consider aspiration given the distribution. 2. Near complete resolution of the posterior right upper lobe pneumonia seen previously. 3. Small focus of airspace opacity posteriorly in the left upper lobe is likely pneumonia as well. 3 month follow-up chest CT advised to ensure resolution following therapy. Lungs otherwise clear. High-resolution images show no fibrosis, bronchiectasis or honeycombing. 4. A 1.3 cm hypodensity inferiorly in the right thyroid lobe can be better assessed with ultrasound as an outpatient once acute issues are resolved, grossly stable. Mild mediastinal lymphadenopathy is likely reactive to the pneumonia. No axillary or definite hilar lymphadenopathy detected on this limited noncontrast study. 5. Heart is enlarged. Small pericardial effusion. Tiny pleural effusions bilaterally. 6. Hiatus hernia mostly containing fat. 7. Calcified plaque within the thoracic aorta. Main pulmonary artery is dilated, indicating pulmonary hypertension, measures 3.7 cm transverse similar to prior. 8. Degenerative change in the spine. SUMMARY: Bibasilar pneumonia, consider aspiration. Near resolution of the right upper lobe pneumonia. Small opacity left upper lobe likely pneumonia as well. 3 month follow-up chest CT advised to ensure resolution following therapy. Incidental findings, see above. [facility]-[id number] MRA Head Wo Contrast (10/30/2017 12:46 PM) Specimen Performing Laboratory [facility] [address] [place] [address] Narrative EXAMINATION: MRA HEAD WO CONTRAST CLINICAL HISTORY: STROKE COMPARISON:Brain MRI performed on the same day. TECHNIQUE: [id number] MRA images of the [place] vessels were obtained with multiplanar and 3-D reconstructive algorithms. FINDINGS: The study is degraded by motion, which limits its sensitivity and specificity. Flow related signal is detected along the visualized distal cervical, petrous, cavernous and supraclinoid segments of the internal carotid arteries. No definite significant stenosis or aneurysmal dilation is identified. However, the sensitivity for detecting stenosis and aneurysms is limited due to extensive motion. The left A1 segment is hypoplastic. Flow related signal is detected along the visualized intradural vertebral arteries, basilar artery and posterior cerebral arteries. The left posterior cerebral artery has a type origin. IMPRESSION: The study is significantly degraded by motion artifact, which limits its sensitivity and specificity. No evidence of a significant stenosis of the proximal intracranial vessels. [id number] Procedure Note Interface, Radiology Results Incoming - 10/30/2017 1:20 PM CDT EXAMINATION: MRA HEAD WO CONTRAST CLINICAL HISTORY: STROKE COMPARISON: Brain MRI performed on the same day. TECHNIQUE: [id number] MRA images of the [place] vessels were obtained with multiplanar and 3-D reconstructive algorithms. FINDINGS: The study is degraded by motion, which limits its sensitivity and specificity. Flow related signal is detected along the visualized distal cervical, petrous, cavernous and supraclinoid segments of the internal carotid arteries. No definite significant stenosis or aneurysmal dilation is identified. However, the sensitivity for detecting stenosis and aneurysms is limited due to extensive motion. The left A1 segment is hypoplastic. Flow related signal is detected along the visualized intradural vertebral arteries, basilar artery and posterior cerebral arteries. The left posterior cerebral artery has a type origin. IMPRESSION: The study is significantly degraded by motion artifact, which limits its sensitivity and specificity. No evidence of a significant stenosis of the proximal intracranial vessels. [id number] MRI Brain Wo Contrast (10/30/2017 12:20 PM) Specimen Performing Laboratory [facility] [address] [place] [address] Narrative EXAMINATION: MRI BRAIN WO CONTRAST CLINICAL HISTORY: NEURO DEFICITACUTESINGLEPROGRESSING, STROKE COMPARISON:None TECHNIQUE: Multiplanar and multisequence MRI imaging of the brain was obtained without contrast. FINDINGS: On diffusion-weighted imaging, there is no evidence of acute ischemia and/ restricted water diffusion in the brain parenchyma. No evidence of intracranial hemorrhage, mass, mass effect, midline shift or focal extra-axial collection. On gradient-echo imaging, there are no abnormal intraparenchymal foci of magnetic susceptibility artifact to suggest deposition of blood products and/or abnormal mineralization. The ventricles and extra axial spaces are mildly prominent bilaterally. The major intracranial flow voids at the skull base are identified. FLAIR imaging shows no significant FLAIR signal changes to suggest prior ischemic or inflammatory insult. No sellar, suprasellar or pineal region mass is seen. The brainstem and cerebellum appear unremarkable on this unenhanced brain MRI. Incidentally, there is degenerative disc disease with posterior disc osteophyte complex at C4-C5, which may be resulting in some degree of spinal canal stenosis at this level. Extensive fluid signal is noted in the mastoid air cells bilaterally. In addition, there is extensive opacification and secretions of the left sphenoid sinus with bilateral sphenoid sinus fluid levels. IMPRESSION: 1. No acute intracranial abnormality identified. No evidence of acute ischemia. 2. Extensive bilateral mastoid air cell effusions and fluid levels in both sphenoid sinuses. Please correlate for signs and symptoms of acute sinusitis. 3. Degenerative disc disease at C4-C5 with posterior disc osteophyte complex, which may be resulting in some degree of spinal canal stenosis at this level. [id number] Procedure Note Interface, Radiology Results Incoming - 10/30/2017 12:43 PM CDT EXAMINATION: MRI BRAIN WO CONTRAST CLINICAL HISTORY: NEURO DEFICIT ACUTE SINGLE PROGRESSING, STROKE COMPARISON: None TECHNIQUE: Multiplanar and multisequence MRI imaging of the brain was obtained without contrast. FINDINGS: On diffusion-weighted imaging, there is no evidence of acute ischemia and/ restricted water diffusion in the brain parenchyma. No evidence of intracranial hemorrhage, mass, mass effect, midline shift or focal extra-axial collection. On gradient-echo imaging, there are no abnormal intraparenchymal foci of magnetic susceptibility artifact to suggest deposition of blood products and/or abnormal mineralization. The ventricles and extra axial spaces are mildly prominent bilaterally. The major intracranial flow voids at the skull base are identified. FLAIR imaging shows no significant FLAIR signal changes to suggest prior ischemic or inflammatory insult. No sellar, suprasellar or pineal region mass is seen. The brainstem and cerebellum appear unremarkable on this unenhanced brain MRI. Incidentally, there is degenerative disc disease with posterior disc osteophyte complex at C4-C5, which may be resulting in some degree of spinal canal stenosis at this level. Extensive fluid signal is noted in the mastoid air cells bilaterally. In addition, there is extensive opacification and secretions of the left sphenoid sinus with bilateral sphenoid sinus fluid levels. IMPRESSION: 1. No acute intracranial abnormality identified. No evidence of acute ischemia. 2. Extensive bilateral mastoid air cell effusions and fluid levels in both sphenoid sinuses. Please correlate for signs and symptoms of acute sinusitis. 3. Degenerative disc disease at C4-C5 with posterior disc osteophyte complex, which may be resulting in some degree of spinal canal stenosis at this level. [id number] Lung Ventilation Perfusion (10/30/2017 11:31 AM)Only the most recent of2 resultswithin the time period is included. Specimen Performing Laboratory [facility] [address] [place] [address] Narrative PROCEDURE:NM LUNG VENTILATION PERFUSION INDICATION:Shortness of breath. COMPARISON:Chest CTA dated 10/01/2017, portable chest x-ray performed on same day at 0908. TECHNIQUE:Planar ventilation images were acquired after the inhalation of 15 mCi of Xe-133 gas. Planar perfusion images were acquired after the IV administration of 5 mCi of Tc-99m MAA. FINDINGS:Ventilation images demonstrate decreased ventilation to the lung periphery. Washout images demonstrate no gas trapping.Perfusion images demonstrate decreased perfusion to the lung periphery, matching the ventilation images.No mismatched defects. IMPRESSION: 1.Low probability for acute PE. 2.No definite evidence for chronic PE. [facility]-[id number] Procedure Note [facility], Radiology Results Incoming - 10/30/2017 11:42 AM CDT PROCEDURE: NM LUNG VENTILATION PERFUSION INDICATION: Shortness of breath. COMPARISON: Chest CTA dated 10/01/2017, portable chest x-ray performed on same day at 0908. TECHNIQUE: Planar ventilation images were acquired after the inhalation of 15 mCi of Xe-133 gas. Planar perfusion images were acquired after the IV administration of 5 mCi of Tc-99m MAA. FINDINGS: Ventilation images demonstrate decreased ventilation to the lung periphery. Washout images demonstrate no gas trapping. Perfusion images demonstrate decreased perfusion to the lung periphery, matching the ventilation images. No mismatched defects. IMPRESSION: 1. Low probability for acute PE. 2. No definite evidence for chronic PE. [facility]-[id number] XR Picc Chest Portable (10/30/2017 9:24 AM) Specimen Performing Laboratory [facility] [address] [place] [address] Narrative EXAMINATION: XR PICC CHEST PORTABLE INDICATION: PICC Line Insertion COMPARISON: Most recent prior IMPRESSION: Right upper extremity PICC with tip overlying the distal superior vena cava. Stable appearance of the heart and mediastinum. Mild vascular congestion with a small left pleural effusion and left more than right basilar atelectasis. No visible pneumothorax. Thoracolumbar scoliosis. [id number] Procedure Note Interface, Radiology Results Incoming - 10/30/2017 9:29 AM CDT EXAMINATION: XR PICC CHEST PORTABLE INDICATION: PICC Line Insertion COMPARISON: Most recent prior IMPRESSION: Right upper extremity PICC with tip overlying the distal superior vena cava. Stable appearance of the heart and mediastinum. Mild vascular congestion with a small left pleural effusion and left more than right basilar atelectasis. No visible pneumothorax. Thoracolumbar scoliosis. [id number] PICC INSERTION (10/30/2017 8:43 AM) Narrative Nicola Riley 10/30/20178:45 AM PICC insertion Date/Time: 10/30/2017 8:43 AM Performed by: ISABEL JACKSON Authorized by: RENY SAINI Consent: Consent obtained:Verbal Consent given by:Patient Risks discussed: arterial puncture, incorrect placement, nerve damage, bleeding, infection, superficial thrombus and deep vein thrombus [place] protocol: Procedure explained and questions answered to patient or proxy's satisfaction: yes Relevant documents present and verified: yes Test results available and properly labeled: yes Imaging studies available: yes Required blood products, implants, devices, and special equipment available: yes Site/side marked: yes Immediately prior to procedure, a time out was called: yes Patient identity confirmed:Arm band, verbally with patient, hospital-assigned identification number and provided demographic data Pre-procedure details: Hand hygiene: Hand hygiene performed prior to insertion Sterile barrier technique: All elements of maximal sterile technique followed Skin preparation:2% chlorhexidine Skin preparation agent: Skin preparation agent completely dried prior to procedure Anesthesia (see MAR for exact dosages): Anesthesia method:Local infiltration Local anesthetic:Lidocaine 1% w/o epi Route of administration:Subcutaneous PICC Line Placement Details (Will create an LDA): Patient position:Flat Vessel Size (mm):4 Indication:Known manager terminal IV therapy and poor venous access Location:Right cephalic Device Type:Non-valved Catheter size:5 Fr PICC Characteristics: Catheter Brand:ANGIONaveggFLO POWER PICC External Catheter Length (cm):0 Internal Catheter Length (cm):38 Total Catheter Length (cm):38 Catheter Lot Number:[id number] Catheter Expiration Date:08/02/2019 Procedure Details: Landmarks identified: yes Ultrasound guidance: yes Sterile ultrasound techniques: Sterile gel and sterile probe covers were used Number of attempts:1 Number of PICC kits used during procedure:1 Purpose of procedure:PICC Placement Successful PICC Placement: Yes Patency/Placement:Flushes without difficulty, flushed with 10 mL normal saline, positive blood return, injection cap placed and x-ray placement verified PICC placed utlizing ultrasound-guided Modified Seldinger Technique: Yes Dressing/Securement:Antimicrobial dressing applied and catheter securement device Blood Loss Amount:Less than 20 mL Post-Procedure Details: Post-procedure:Dressing applied Tip placement confirmed by chest x-ray: Yes Patient tolerance of procedure:Tolerated well, no immediate complications CBC hemogram (10/30/2017 7:55 AM) Component Value Ref Range WBC 4.47 (L) 4.50 - 11.00 k/uL RBC 2.62 (L) 4.20 - 5.50 m/uL HGB 7.9 (L) 12.0 - 16.0 g/dL HCT 27.1 (L) 37.0 - 47.0 % MCV 103.4 (H) 82.0 - 100.0 fL MCH 30.2 27.0 - 34.0 pg MCHC 29.2 (L) 31.0 - 37.0 g/dL RDW - SD 68.2 (H) 37.0 - 55.0 fL MPV 10.0 8.8 - 13.2 fL Platelet count 142 (L) 150 - 400 k/uL Nucleated RBC 0.70 /100 WBC Specimen Performing Laboratory [facility] [address] [place] [id number] Thyroid stimulating hormone (10/30/2017 5:00 AM)Only the most recent of2 resultswithin the time period is included. Component Value Ref Range TSH 2.99 0.27 - 4.20 uIU/mL Specimen Performing Laboratory Plasma specimen [facility] [address] [place] [id number] B natriuretic peptide (10/30/2017 5:00 AM)Only the most recent of2 resultswithin the time period is included. Component Value Ref Range BNP SEE COMMENT 0 - 100 pg/mL Comment: Footnote--------- Unable to perform testing, specimen is QNS.Recollect requested for CBCWD,HGBA1C,and BNP TWYLA LACY notified by [employer] at10/30/201707:20 .Credit issued. Specimen Performing Laboratory Blood [facility] [address] [place] [address] Hemoglobin A1c (10/30/2017 5:00 AM) Component Value Ref Range Hemoglobin A1C 4.6 4.0 - 5.6 % Comment: HbA1c cutoffs for diagnosing diabetes: 4.0% - 5.6%=normal 5.7% - 6.4%=increased risk for diabetes (prediabetes) >=6.5%=diabetes Goals for glycemic control (ADA 2016) < 7.0%Target for non adults with diabetes. More or less stringent targets may be appropriate for individual patients. <7.5% Target for Children and adolescents with type 1 diabetes. Specimen Performing Laboratory Blood [facility] [address] [place] [address] Lipid panel (10/30/2017 5:00 AM)Only the most recent of2 resultswithin the time period is included. Component Value Ref Range Cholesterol 163 <200 mg/dL Triglycerides 361 (H) <150 mg/dL HDL cholesterol 23 (L) >40 mg/dL LDL cholesterol 61Comment: Result obtained by direct LDL <100 mg/dL measurement Lipid panel interpretation SeeBelow Comment: Total Cholesterol (mg/dL) <200 Desirable [phone]-pbir >=240High Triglycerides (mg/dL) <150 Normal [id number]-qqkp 200-499High >=500Very high HDL Cholesterol (mg/dL) <40Low (male) <40Low (female) LDL Cholesterol (mg/dL) <100 Optimal 100-129Near or above optimal 305-630Mosnumchzo-zuhx 160-189High >=190Very high Risk Catergories that modify LDL goals. Risk CatergoriesLDL goal (mg/dL) CHD and CHD risk equivalent<100 (10-year risk >20%) Multiple (2+) risk factors <130 (10-year risk=<20%) 0-1 risk factors <160 (<10-year risk) Defining levels of lipids in metabolic syndrome Triglycerides>=150 mg/dL HDL Cholesterol Men<40 mg/dL Women<40 mg/dL Non-HDL cholesterol is a second target for therapy in persons with high triglycerides (>=200 mg/dL) Specimen Performing Laboratory Plasma specimen [facility] [address] [address] Total iron binding capacity (10/29/2017 1:15 PM) Component Value Ref Range Iron level 27 (L) 37 - 145 ug/dL Iron binding capacity 280 200 - 400 ug/dL % Saturation 9.6 (L) 15.0 - 38.0 % Specimen Performing Laboratory Plasma specimen [facility] [address] [address] Sedimentation rate (10/29/2017 1:15 PM)Only the most recent of2 resultswithin the time period is included. Component Value Ref Range Sedimentation rate 61 (H) 0 - 20 mm/hr Specimen Performing Laboratory [facility] [address] [address] C-reactive protein (10/29/2017 1:15 PM)Only the most recent of2 resultswithin the time period is included. Component Value Ref Range CRP 7.76 (H) 0.00 - 0.50 mg/dL Specimen Performing Laboratory Plasma specimen [facility] [address] [address] Lactic acid level (10/29/2017 1:15 PM)Only the most recent of7 resultswithin the time period is included. Component Value Ref Range Lactic acid 1.2 0.5 - 2.2 mmol/L Specimen Performing Laboratory Plasma specimen [facility] [address] [address] Folate level (10/29/2017 1:15 PM) Component Value Ref Range Folate 13.0 4.8 - 24.2 ng/mL Specimen Performing Laboratory Serum [facility] [address] [address] Vitamin B12 level (10/29/2017 1:15 PM) Component Value Ref Range Vitamin B12 788 211 - 946 pg/mL Comment: Significant overlap exists between normal and deficiency states. However, most patients with deficiencies will have Serum B12 <200 pg/mL. Specimen Performing Laboratory Serum [facility] [address] [place] [address] Comprehensive metabolic panel (10/29/2017 1:15 PM)Only the most recent of2 resultswithin the time period is included. Component Value Ref Range Sodium 148 135 - 148 mEq/L Potassium 4.2 3.5 - 5.0 mEq/L Chloride 112 98 - 112 mEq/L CO2 24 24 - 31 mEq/L Anion gap 12 7 - 15 mEq/L Comment: Starting from October , anion gap calculation no longer incorporates potassium. Please note the change. BUN 19 6 - 20 mg/dL Creatinine 2.5 (H) 0.5 - 0.9 mg/dL Glucose 109 (H) 65 - 99 mg/dL Calcium 8.5 8.3 - 10.2 mg/dL Protein 5.4 (L) 6.3 - 8.3 g/dL Comment: 4.6-7.0 g/dL 1 week 4.4-7.6 g/dL 7 months-1year5.1-7.3 g/dL 1-2 years5.6-7.5 g/dL >3 years6.0-8.0 g/dL 18-150 6.3-8.3 g/dL Albumin 2.1 (L) 3.5 - 5.0 g/dL A/G ratio 0.6 (L) 0.7 - 3.8 Alkaline phosphatase 42 35 - 104 U/L AST 17 10 - 35 U/L ALT 6 5 - 50 U/L Total bilirubin 0.4 0.0 - 1.2 mg/dL Specimen Performing Laboratory Plasma specimen [facility] [address] [place] [address] Head Wo Contrast (10/29/2017 12:20 PM)Only the most recent of2 resultswithin the time period is included. Specimen Performing Laboratory [address] [address] Narrative EXAMINATION: CT HEAD WO CONTRAST CLINICAL HISTORY: intracranial bleed. COMPARISON:10/01/2017 TECHNIQUE: Noncontrast CT of the brain was performed from the skull base to the vertex. Both soft tissue and bone reconstruction algorithms are interpreted. CT imaging was performed with iterative reconstruction techniques and/or automated exposure control to reduce radiation dose. FINDINGS: No intracranial hemorrhage, extra-axial collection, or mass-effect is seen. No acute cortical infarct is identified. No hyperdense vessel is seen. Air-fluid levels are noted in the sphenoid sinuses. There is partial opacification of the mastoid air cells. Mastoid air cells are clear. IMPRESSION: No acute intracranial abnormality identified. [facility]-[id number] Procedure Note Hm Interface, Radiology Results Incoming - 10/29/2017 12:29 PM CDT EXAMINATION: CT HEAD WO CONTRAST CLINICAL HISTORY: intracranial bleed. COMPARISON: 10/01/2017 TECHNIQUE: Noncontrast CT of the brain was performed from the skull base to the vertex. Both soft tissue and bone reconstruction algorithms are interpreted. CT imaging was performed with iterative reconstruction techniques and/or automated exposure control to reduce radiation dose. FINDINGS: No intracranial hemorrhage, extra-axial collection, or mass-effect is seen. No acute cortical infarct is identified. No hyperdense vessel is seen. Air-fluid levels are noted in the sphenoid sinuses. There is partial opacification of the mastoid air cells. Mastoid air cells are clear. IMPRESSION: No acute intracranial abnormality identified. [facility]-[id number] PV duplex venous lower extremity (10/29/2017 2:50 AM)Only the most recent of3 resultswithin the time period is included. Specimen Performing Laboratory [facility] [address] [place] [address] Narrative Vascular Ultrasound Laboratory Lower Extremity Venous Report [address] [place] [address] Pat.Name:FANNIE DELACRUZ Pat.ID:[id number] .Date: 10/29/2017 Refer.MD:RENY LUNA MD Exam Time: 2:34:00 AMStudy Type:LE Venous DOBAge:1960,57Y Sex: FEMALE Sonogrphr: Manuel Alvares. Stat.:Inpatient Room:[id number]: , CPT - 4: 00102 Echo Event ID:[id number] Order ID:[id number] Reason for Study:Bilateral leg edema. History of AMS, CHF, pulmonary HTN, COPD, CKD, HTN, HLD. Race:C SUMMARY: DUPLEX SCAN OBSERVATIONS Deep VeinsSuperficial Veins RightLeft RightLeft GSV (prox) NormalNot Visualized CFV Partial Normal (above knee) Femoral Normal Normal GSV (dist) Not Visualized Not Visualized Profunda Normal Normal (below knee) Popliteal Normal Normal PT (prox) Normal NormalSSV Normal Not Visualized PT (dist) Normal Normal Peroneal Not Visualized Not Visualized RIGHT: The common femoral vein is partially compressible with echogenic material within the lumen and colorflow and Doppler signals are present. There is normal compressibility with colorflow and Doppler signals noted in the remaining visualized veins. LEFT:There is normal compressibility with no evidence of echogenic material noted within the lumen of the visualized veins. Colorflow and Doppler signals are normal. PRELIMINARY FINDINGS 1. Partial deep venous thrombosis of the right common femoral vein. Results given to MARC Lujan at 2:53 am on 10/29/17. PHYSICIAN INTERPRETATION Venous examination of the bilateral lower extremitiesdemonstrated evidence of partial deep venous thrombosis of the right common femoral vein.Normal compressibility and augmentation of all remaining veins visualized. Signed 10/29/2017 09:52 AM Dain Ayala MD Procedure Note Interface, Radiology Results In - 10/29/2017 9:53 AM CDT Vascular Ultrasound Laboratory Lower Extremity Venous Report [address] [place] [address] Pat.Name: FANNIE DELACRUZ Pat.ID: [id number] .Date: 10/29/2017 Refer.MD: RENY LUNA MD Exam Time: 2:34:00 AM Study Type:LE Venous Age: 10 1960,57Y Sex: FEMALE Sonogrphr: Viji Segal RVT Pat. Stat.:Inpatient Room: M43166-W Tape Vol: RF, CPT - 4: 81774 Echo Event ID:[id number] Order ID: [id number] Reason for Study:Bilateral leg edema. History of AMS, CHF, pulmonary HTN, COPD, CKD, HTN, HLD. Race: C SUMMARY: DUPLEX SCAN OBSERVATIONS Deep Veins Superficial Veins Right Left Right Left GSV (prox) Normal Not Visualized CFV Partial Normal (above knee) Femoral Normal Normal GSV (dist) Not Visualized Not Visualized Profunda Normal Normal (below knee) Popliteal Normal Normal PT (prox) Normal Normal SSV Normal Not Visualized PT (dist) Normal Normal Peroneal Not Visualized Not Visualized RIGHT: The common femoral vein is partially compressible with echogenic material within the lumen and colorflow and Doppler signals are present. There is normal compressibility with colorflow and Doppler signals noted in the remaining visualized veins. LEFT:There is normal compressibility with no evidence of echogenic material noted within the lumen of the visualized veins. Colorflow and Doppler signals are normal. PRELIMINARY FINDINGS 1. Partial deep venous thrombosis of the right common femoral vein. Results given to MARC Lujan at 2:53 am on 10/29/17. PHYSICIAN INTERPRETATION Venous examination of the bilateral lower extremities demonstrated evidence of partial deep venous thrombosis of the right common femoral vein. Normal compressibility and augmentation of all remaining veins visualized. Signed 10/29/2017 09:52 AM Dain Ayala MD Venous blood gas (10/28/2017 11:30 PM)Only the most recent of3 resultswithin the time period is included. Component Value Ref Range pH, venous 7.29 (L) 7.32 - 7.42 pCO2, venous 51 45 - 51 mmHg pO2, venous 37 25 - 40 mmHg Base excess, venous -2 -2 - 2 meq/L O2 saturation, venous 72 (H) 40 - 70 % Bicarbonate, venous 23.6 21.0 - 28.0 mmol/L Specimen Performing Laboratory [facility] [address] [place] [address] Prepare RBC, 1 Units (10/28/2017 11:00 PM)Only the most recent of2 resultswithin the time period is included. Component Value Ref Range Product name Red Blood Cells -1, Leukored Unit number [id number] Product code [id number] Dispense status Transfused Blood expiration date [id number] Blood type code 7300 Blood type B POSITIVE Specimen Performing Laboratory [facility] [address] [place] [address] Type and screen (10/28/2017 11:00 PM)Only the most recent of4 resultswithin the time period is included. Component Value Ref Range ABO grouping B Rh type POS Antibody screen (gel) NEG Specimen Performing Laboratory Blood [facility] [address] [place] [address] Urinalysis screen and microscopy, with reflex to culture (10/28/2017 10:34 PM) Only the most recent of4 resultswithin the time period is included. Component Value Ref Range Specimen site Catheterized Color, UA Yellow Appearance, UA Hazy Specific gravity, UA 1.013 1.001 - 1.035 pH, UA 5.0 5.0 - 8.5 Protein, UA 1+ (A) Negative Glucose, UA Negative Negative Ketones, UA Trace (A) Negative Bilirubin, UA Negative Negative Blood, UA Negative Negative Nitrite, UA Negative Negative Urobilinogen, UA <2.0 <2.0 Leukocyte esterase, UA Large (A) Negative Epithelial cells, UA <1 /HPF WBC, UA 171 (H) 0 - 4 /HPF RBC, UA 5 0 - 5 /HPF Bacteria, UA Few None seen WBC clumps, UA Moderate (A) Yeast, UA None seen Yeast with pseudohyphae, UA None seen Amorphous crystals Few Hyaline casts, UA 3 /LPF Specimen Performing Laboratory Urine [facility] [address] [place] [address] Urine drugs of abuse screen (10/28/2017 10:34 PM) Component Value Ref Range Amphetamine screen, urine Negative Barbiturate screen, urine Negative Benzodiazepine screen, urine Negative Cannabinoid screen, urine Negative Cocaine screen, urine Negative Methadone metabolite (EDDP), urine Negative Opiates screen, urine Negative Oxycodone screen, urine Negative Phencyclidine screen, urine Negative Tricyclic screen, urine Negative Comment: Drug screen minimum concentration of detectability Hcymmotpukfb7592 ng/mL Barbiturates 200 ng/mL Mghbdvmegjkhrmo922 ng/mL Iwcuger765 ng/mL Uhfyhykfl881 ng/mL Crkgtus888 ng/mL Dsibkdqtk617 ng/mL Phencyclidine 25 ng/mL Mptvzuvzhtpd93 ng/mL Zuorwpvhkv6840 ng/mL Negative test results indicates presumptive evidence of lack of clinically significant drug concentration in this urine specimen. Positive test results are presumptive evidence of clinically significant drug concentration in this urine specimen. Testing performed for medical purposes only. Specimen Performing Laboratory Urine [facility] [address] [place] [address] Gram stain (10/28/2017 10:34 PM)Only the most recent of4 resultswithin the time period is included. Component Value Ref Range Gram stain result Many WBC's No organisms seen Comment: Specimen Information Specimen Source: Urine Specimen Site: Catheterized Specimen Performing Laboratory Urine - Catheterized [facility] [address] [place] [address] Urine culture (10/28/2017 10:34 PM)Only the most recent of4 resultswithin the time period is included. Component Value Ref Range Urine culture isolate No growth after 1 day. Comment: Specimen Information Specimen Source: Urine Specimen Site: Catheterized Specimen Performing Laboratory Urine - Catheterized [facility] [address] [place] [address] Smear review (10/28/2017 10:05 PM)Only the most recent of2 resultswithin the time period is included. Component Value Ref Range Platelet slide review Mary Ellen slt decr Anisocytosis Moderate Polychromasia Moderate Tear drop cells Occasional Ovalocytes Moderate Giant platelets Occasional Toxic granulation Slight Specimen Performing Laboratory [facility] [address] [place] [address] Partial thromboplastin time, activated (10/28/2017 10:05 PM)Only the most recent of7 resultswithin the time period is included. Component Value Ref Range PTT @ft 23.0 - 36.0 sec Comment: PTT therapeutic range for unfractionated heparin is 61.0-112.0 seconds which corresponds to Anti-Xa 0.3-0.7 U/ml. Specimen Performing Laboratory Blood [facility] [address] [place] [address] Prothrombin time with INR (10/28/2017 10:05 PM)Only the most recent of6 resultswithin the time period is included. Component Value Ref Range Prothrombin time @ftComment: Corrected result; previously reported as 12.0 - 15.0 sec 15.5 on 10/28/2017 at 22:47 by I/AUT INR @ft Comment: The International Normalized Ratio (INR) is a therapeutic monitoring tool for patients who are stable on oral anticoagulant therapy. An INR of 2.0-3.0 is suggested for deep vein thrombosis/pulmonary embolism. Unable to perform testing, specimen is CLOTTED.Recollect requested for PT PTT (tests). VADIM HERNANDEZ (name/location) notified by HILLARY (tech ID) at10/28/201723:09(date/time).Credit issued. Corrected result; previously reported as 1.2 on 10/28/2017 at 22:47 by I/AUT Specimen Performing Laboratory Blood [facility] [address] [place] [address] T4, free (10/28/2017 10:05 PM) Component Value Ref Range T4, free 0.9 0.9 - 1.7 ng/dL Specimen Performing Laboratory Plasma specimen [facility] [address] [place] [address] Lipase level (10/28/2017 10:05 PM)Only the most recent of6 resultswithin the time period is included. Component Value Ref Range Lipase 110 (H) 13 - 60 U/L Specimen Performing Laboratory Plasma specimen [facility] [address] [address] Blood culture, aerobic & anaerobic (10/28/2017 9:45 PM)Only the most recent of7 resultswithin the time period is included. Component Value Ref Range Blood culture isolate No growth after 5 days of incubation. Comment: Specimen Information Specimen Source: Blood Specimen Site: Unspecified Specimen Performing Laboratory Blood [facility] [address] [place] [address] XR Chest 1 Vw Portable (10/28/2017 8:25 PM)Only the most recent of10 resultswithin the time period is included. Specimen Performing Laboratory [address] [address] Narrative EXAMINATION:XR CHEST 1 VW PORTABLE CLINICAL HISTORY: feverAMS COMPARISON:10/05/2017 IMPRESSION: No radiographic evidence for acute cardiopulmonary process. Cardiomediastinal silhouette is mildly enlarged, unchanged. No new focal or confluent airspace consolidation is seen on single AP view to suggest acute pneumonia. No sizable pleural effusion. No pneumothorax identified. Mild thoracolumbar scoliotic deformity noted. No acute osseous abnormalities are visualized. Remote, healed right lower lateral rib fractures are noted. [facility]-[id number] Procedure Note Hm Interface, Radiology Results Incoming - 10/28/2017 8:43 PM CDT EXAMINATION: XR CHEST 1 VW PORTABLE CLINICAL HISTORY: fever AMS COMPARISON: 10/05/2017 IMPRESSION: No radiographic evidence for acute cardiopulmonary process. Cardiomediastinal silhouette is mildly enlarged, unchanged. No new focal or confluent airspace consolidation is seen on single AP view to suggest acute pneumonia. No sizable pleural effusion. No pneumothorax identified. Mild thoracolumbar scoliotic deformity noted. No acute osseous abnormalities are visualized. Remote, healed right lower lateral rib fractures are noted. [facility]-[id number] Arterial blood gas (10/13/2017 1:04 PM)Only the most recent of5 resultswithin the time period is included. Component Value Ref Range pH, arterial 7.41 7.35 - 7.45 pCO2, arterial 51 (H) 35 - 45 mmHg pO2, arterial 183 (H) 80 - 90 mmHg Bicarbonate, arterial 31.3 (H) 21.0 - 28.0 mmol/L Base excess, arterial 6 (H) -2 - 2 mEq/L O2 saturation, arterial 100 95 - 100 % Specimen Performing Laboratory Blood [facility] [address] [place] [address] C difficile toxin (10/10/2017 9:20 AM) Component Value Ref Range Clostridium difficile toxin No Clostridium difficle toxin present Comment: Specimen Information Specimen Source: Stool Specimen Site: Nonpreserved Specimen Performing Laboratory Stool - Nonpreserved [facility] [address] [place] [address] 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 Wedge pressure is mildly elevated. Cardiac output is normal. Intracardiac shunt is not detected. Pulmonary hypertension is mild. Wedge and LVEDP pressures are within close range and are normal (11 and 10 mmHg respectively). Mean PA=25 mmHg Transpulmonary gradient=15 mmHg. Normal cardiac output. Moderate sedation was administered with physician supervisionof patient consciousness, respiration, Oxygen saturation and CO2 monitoring, beginning sh3511 ( time)for a total period of 55 minutes. LDH (10/04/2017 3:52 AM)Only the most recent of2 resultswithin the time period is included. Component Value Ref Range LDH 272 (H) 87 - 225 U/L Specimen Performing Laboratory Plasma specimen [facility] [address] [place] [address] Hepatic function panel (10/04/2017 3:52 AM)Only the most recent of4 resultswithin the time period is included. Component Value Ref Range Albumin 2.0 (L) 3.5 - 5.0 g/dL Total bilirubin 0.4 0.0 - 1.2 mg/dL Bilirubin direct 0.3 0.0 - 0.3 mg/dL Alkaline phosphatase 42 35 - 104 U/L Protein 5.7 (L) 6.3 - 8.3 g/dL Comment: 4.6-7.0 g/dL 1 week 4.4-7.6 g/dL 7 months-1year5.1-7.3 g/dL 1-2 years5.6-7.5 g/dL >3 years6.0-8.0 g/dL 18-150 6.3-8.3 g/dL ALT 17 5 - 50 U/L AST 20 10 - 35 U/L Specimen Performing Laboratory Plasma specimen [facility] [address] [place] [address] Ionized calcium, arterial (10/03/2017 1:06 AM)Only the most recent of3 resultswithin the time period is included. Component Value Ref Range Ionized calcium, arterial 1.07 (L) 1.11 - 1.32 mmol/L Specimen Performing Laboratory Blood [facility] [address] [place] [address] XR Abdomen 1 Vw Portable (10/02/2017 5:28 PM)Only the most recent of5 resultswithin the time period is included. Specimen Performing Laboratory [facility] [address] [place] [address] Narrative PROCEDURE:XR ABDOMEN 1 VW PORTABLE CLINICAL HISTORY:Check dobhoff placement COMPARISON:October 01, 2017 TECHNIQUE: A single AP supine view of the abdomen was taken. FINDINGS: A Dobbhoff tube is noted and is newly inserted and is curled in the gastric antrum. No change in position of the NG tube is noted from previous. IMPRESSION: Interval insertion of Dobbhoff tube which is curled in the gastric antrum.. [id number] . Procedure Note Hm Interface, Radiology Results Incoming - 10/02/2017 6:07 PM CDT PROCEDURE: XR ABDOMEN 1 VW PORTABLE CLINICAL HISTORY: Check dobhoff placement COMPARISON: October 01, 2017 TECHNIQUE: A single AP supine view of the abdomen was taken. FINDINGS: A Dobbhoff tube is noted and is newly inserted and is curled in the gastric antrum. No change in position of the NG tube is noted from previous. IMPRESSION: Interval insertion of Dobbhoff tube which is curled in the gastric antrum.. [id number] . Triglycerides (10/02/2017 10:31 AM)Only the most recent of2 resultswithin the time period is included. Component Value Ref Range Triglycerides 332 (H) <150 mg/dL Specimen Performing Laboratory Plasma specimen [facility] [address] [place] [address] Amylase level (10/02/2017 10:31 AM)Only the most recent of4 resultswithin the time period is included. Component Value Ref Range Amylase 139 (H) 28 - 100 U/L Specimen Performing Laboratory Plasma specimen [facility] [address] [place] [address] Troponin (10/02/2017 5:34 AM)Only the most recent of3 resultswithin the time period is included. Component Value Ref Range Troponin 0.56 (H) 0.00 - 0.30 ng/mL Comment: 0.30 - 1.49 ng/mlMay indicate increased risk of acute coronary syndrome. >=1.5 ng/mlConsistent with acute myocardial infarction. The diagnostic value of a single normal or non-diagnostic result is questionable.Serial samples at 2-6 hour intervals are required to rule out acute myocardial injury. Specimen Performing Laboratory Plasma specimen [facility] [address] [place] [address] CENTRAL LINE (10/01/2017 5:34 PM) Meme Maldonado NP 10/01/20175:36 PM Central Line Insertion Performed by: BRAD MALDONADO Authorized by: BRAD MALDONADO Consent: Consent obtained:Emergent situation [place] protocol: Patient identity confirmed:Arm band Pre-procedure details: Hand hygiene: Hand hygiene performed prior to insertion Sterile barrier technique: All elements of maximal sterile technique followed Skin preparation:2% chlorhexidine Skin preparation agent: Skin preparation agent completely dried prior to procedure Sedation: Sedation Type:Anxiolysis Anxiolysis used::Versed Anesthesia (see MAR for exact dosages): Anesthesia method:Local infiltration Local anesthetic:Lidocaine 1% w/o epi Procedure details: Catheter type:Triple lumen Catheter length (cm):15cm Catheter site: internal jugular vein Catheter Site Laterality:Right Patient position:Trendelenburg Landmarks identified: yes Ultrasound guidance: yes Sterile ultrasound techniques: Sterile gel and sterile probe covers were used Number of attempts:1 Successful placement: yes Post-procedure details: Post-procedure:Dressing applied and line sutured Assessment:Blood return through all ports, no pneumothorax on x-ray, placement verified by x-ray and free fluid flow Patient tolerance of procedure:Tolerated well, no immediate complications Insert arterial line (10/01/2017 5:33 PM)Only the most recent of2 resultswithin the time period is included. Meme Maldonado NP 10/01/20175:34 PM Arterial Line Insertion Date/Time: 10/01/2017 5:33 PM Performed by: BRAD MALDONADO Authorized by: BRAD MALDONADO Consent: Consent obtained:Verbal Consent given by:Spouse Risks discussed:Bleeding, pain, ischemia and infection Indications: Indications: hemodynamic monitoring and multiple ABGs Pre-procedure details: Skin preparation:2% Chlorhexidine Preparation: Patient was prepped and draped in sterile fashion Anesthesia (see MAR for exact dosages): Anesthesia method:Local infiltration Local anesthetic:Lidocaine 1% w/o epi Procedure details: Location:L femoral Placement technique:Seldinger and ultrasound guided Number of attempts:1 Transducer: waveform confirmed Post-procedure details: Post-procedure:Secured with tape, sterile dressing applied and sutured CMS:Normal Patient tolerance of procedure:Tolerated well, no immediate complications CT Angiogram Pe Chest (10/01/2017 4:16 PM) Specimen Performing Laboratory [address] [address] Addenda Addendum by Gulshan Sosa MD on 10/04/2017 2:34 PM ADDENDUM #1 Addendum: Please clarify the original report as follows: There is no pulmonary embolus identified on either side. Narrative EXAMINATION: CT ANGIOGRAM PE CHEST CLINICAL HISTORY: Pulmonary Embolus TECHNIQUE: CT angiographic images of the chest were obtained during intravenous administration of iodinated contrast. Computerized reformatted images and 3-D MIP images were also obtained and archived (CT pulmonary embolus protocol).CT imaging was performed with iterative reconstruction technique and/or automated exposure control to reduce radiation dose. COMPARISON: None. FINDINGS: Hypodense right thyroid lobe is 14 mm. Thyroid ultrasound could better assess. There is moderate cardiomegaly. There is coronary artery calcification. Ectasia of ascending aorta is seen to 4.3 cm. The pulmonary artery is dilated to 3.5 cm. This is compatible with pulmonary artery hypertension. Small mediastinal nodes are seen. 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 No filling defect in the seen in the visible pulmonary arterial tree. There is a hypodensity with pulmonary embolus. Tiny left pleural effusion is seen. Right upper lobe groundglass nodules are seen. Right lower lobe peripheral atelectasis and or infiltration is seen. Some right lower lobe groundglass nodules are also present. Some mild patchy infiltrates left lower lobe are seen. Respiratory motion blurs pulmonary parenchyma. The liver, pancreas, and adrenals are within normal limits. Mild splenomegaly is seen to 14.4 cm. Multiple left renal mass is are seen which are not evaluated on this study and may be cysts or other. Bones are osteopenic. Degenerative changes of spine are seen. IMPRESSION: Left pulmonary embolus. Nonspecific pulmonary infiltrates described above. Splenomegaly. The left kidney which is not fully evaluated on this examination. Right thyroid lobe lesion which could be better assessed with thyroid ultrasound. Pulmonary arterial hypertension. Left superior vena cava. [facility]-[id number] Procedure Note [facility], Radiology Results Incoming - 10/01/2017 4:43 PM CDT EXAMINATION: CT ANGIOGRAM PE CHEST CLINICAL HISTORY: Pulmonary Embolus TECHNIQUE: CT angiographic images of the chest were obtained during intravenous administration of iodinated contrast. Computerized reformatted images and 3-D MIP images were also obtained and archived (CT pulmonary embolus protocol).CT imaging was performed with iterative reconstruction technique and/or automated exposure control to reduce radiation dose. COMPARISON: None. FINDINGS: Hypodense right thyroid lobe is 14 mm. Thyroid ultrasound could better assess. There is moderate cardiomegaly. There is coronary artery calcification. Ectasia of ascending aorta is seen to 4.3 cm. The pulmonary artery is dilated to 3.5 cm. This is compatible with pulmonary artery hypertension. Small mediastinal nodes are seen. 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 No filling defect in the seen in the visible pulmonary arterial tree. There is a hypodensity with pulmonary embolus. Tiny left pleural effusion is seen. Right upper lobe groundglass nodules are seen. Right lower lobe peripheral atelectasis and or infiltration is seen. Some right lower lobe groundglass nodules are also present. Some mild patchy infiltrates left lower lobe are seen. Respiratory motion blurs pulmonary parenchyma. The liver, pancreas, and adrenals are within normal limits. Mild splenomegaly is seen to 14.4 cm. Multiple left renal mass is are seen which are not evaluated on this study and may be cysts or other. Bones are osteopenic. Degenerative changes of spine are seen. IMPRESSION: Left pulmonary embolus. Nonspecific pulmonary infiltrates described above. Splenomegaly. The left kidney which is not fully evaluated on this examination. Right thyroid lobe lesion which could be better assessed with thyroid ultrasound. Pulmonary arterial hypertension. Left superior vena cava. [facility]-[id number] CT Abdomen Pelvis W Wo Contrast (10/01/2017 4:11 PM) Specimen Performing Laboratory [facility] [address] [place] [address] Narrative EXAMINATION:CT ABDOMEN PELVIS W WO CONTRAST CLINICAL HISTORY:ABD PAINFEVERNO RECENT SURGERY TECHNIQUE: CT of the abdomen and pelvis was performed without contrast utilizing renal stone protocol. Subsequently, postcontrast CT of the abdomen and pelvis was obtained with multiphase renal mass and CT urogram protocol. Sagittal and coronal computerized reformatted images were also obtained.CT imaging was performed with iterative reconstruction technique and/or automated exposure control to reduce radiation dose. COMPARISON:09/15/2017 FINDINGS: Abdomen: There is cardiomegaly. Bilateral patchy infiltrates in lower lungs are seen. The liver and pancreas are within normal limits. Adrenals unremarkable. Gallbladder is within normal limits. There is splenomegaly. The spleen is 14.4 cm in length. Numerous hypodensities in the kidneys are compatible with cysts. Hypodensity in the inferior right kidney could be a mass and further evaluation is recommended with MRI. This area is limited due to artifact related to patient' s body size and measures 5.0 x 3.3 cm. Right lower quadrant postoperative change and hernia containing several loops of bowel is seen. Pelvis: Mckeon catheter is seen in the bladder. Small amount of dependent pelvic fluid is seen. Sutures are seen in the hepatic flexure of the colon. Patient is status post right hemicolectomy. Dextroscoliosis of the lumbar spine is seen.Degenerative changes of the lumbar spine are seen. IMPRESSION: Cardiomegaly. Bilateral lower lung areas of infiltration. Splenomegaly. Massive the right kidney cannot be excluded. Suggest further evaluation with MRI. This area is limited due to artifact. Right lower quadrant ventral hernia containing several loops of bowel. No bowel obstruction is seen. Right hemicolectomychanges. [facility]-[id number] Procedure Note Hm Interface, Radiology Results Incoming - 10/01/2017 4:35 PM CDT EXAMINATION: CT ABDOMEN PELVIS W WO CONTRAST CLINICAL HISTORY: ABD PAIN FEVER NO RECENT SURGERY TECHNIQUE: CT of the abdomen and pelvis was performed without contrast utilizing renal stone protocol. Subsequently, postcontrast CT of the abdomen and pelvis was obtained with multiphase renal mass and CT urogram protocol. Sagittal and coronal computerized reformatted images were also obtained.CT imaging was performed with iterative reconstruction technique and/or automated exposure control to reduce radiation dose. COMPARISON: 09/15/2017 FINDINGS: Abdomen: There is cardiomegaly. Bilateral patchy infiltrates in lower lungs are seen. The liver and pancreas are within normal limits. Adrenals unremarkable. Gallbladder is within normal limits. There is splenomegaly. The spleen is 14.4 cm in length. Numerous hypodensities in the kidneys are compatible with cysts. Hypodensity in the inferior right kidney could be a mass and further evaluation is recommended with MRI. This area is limited due to artifact related to patient's body size and measures 5.0 x 3.3 cm. Right lower quadrant postoperative change and hernia containing several loops of bowel is seen. Pelvis: Mckeon catheter is seen in the bladder. Small amount of dependent pelvic fluid is seen. Sutures are seen in the hepatic flexure of the colon. Patient is status post right hemicolectomy. Dextroscoliosis of the lumbar spine is seen.Degenerative changes of the lumbar spine are seen. IMPRESSION: Cardiomegaly. Bilateral lower lung areas of infiltration. Splenomegaly. Massive the right kidney cannot be excluded. Suggest further evaluation with MRI. This area is limited due to artifact. Right lower quadrant ventral hernia containing several loops of bowel. No bowel obstruction is seen. Right hemicolectomy changes. [facility]-[id number] Echocardiogram 2d limited (10/01/2017 1:45 PM) Specimen Performing Laboratory [facility] [address] [place] [address] Narrative Echocardiography Report [address] [place] [address] Pat.Name:FANNIE DELACRUZ Pat.ID:[id number] .Date: 10/01/2017Refer.MD:PREETI WILL MD Exam Time: 1:14:00 PMStudy Type:Routine Echo Height:65inWeight: 246lb BSA: 2.16 m2 DOBAge:1960,57Y Sex: FEMALEBP:109/60 HR:76 bpmSonogrphr: STEPHENIE Cooper Pat. Stat.:Inpatient Room:[facility] Study Status:Final Echo Event ID:[id number] Order ID:[id number] Reason for Study:Hypotension-suspected cardiac etiology History / Clinical:Pulmonary Hypertension Procedures:Portable, Stat, Intravenous Optison Contrast, 2D Echo Limited Race:C SUMMARY: LV EF is normal.Difficult to assess regional wall motion; however it appears grossly normal. Trace posterolateral pericardial effusion. FINDINGS: LV: LV size is normal. Concentric left ventricular remodeling. LVEF is normal. Difficult to assess regional wall motion; howeverit appears grossly normal. Estimated EF is 65-69 % RV: RV size is normal. RV systolic function is grossly normal. LA: LA size is normal. RA: RA size is normal. AO: Aortic root diameter is normal. LORA: Trace posterolateral pericardial effusion. AV: Aortic valve not well seen. MV: No structural MV abnormalities noted. PV: Pulmonic valve not well seen. TV: No structural TV abnormalities noted. Other:Insufficient TR jet to estimate PA systolic pressure. MEASUREMENTS: 2D Parasternal [place] LVOT 1.9 cmLA Ds3.1 cm LVIDd4.2 cmIndex 1.9 cm/m Ao An1.7 cm LVIDs2.7 cmAo Rtd 2.5 cm Index1.2 cm/m LV%fs 35.7 % LV Xsqv447.2 g(87-129) IVSd 1.2 cmLVM Index 82.5 g/m2 LVPWd1.2 cmRWT0.6 LA Sng Plane LA Area 17.4 cm2(8.8-23.4) LA Vol40.6 ml Index18.8 ml/m LA LngAx 6 cm Signed 10/01/2017 04:30 PM Migue Walls M.D. Procedure Note Interface, Radiology Results In - 10/01/2017 4:30 PM CDT Echocardiography Report [address] [place] [address] Pat.Name: FANNIE DELACRUZ Pat.ID: [id number] .Date: 10/01/2017 Refer.MD: PREETI WILL MD Exam Time: 1:14:00 PM Study Type:Routine Echo Height: 65in Weight: 246lb BSA: 2.16 m2 Age: 10 1960,57Y Sex: FEMALE BP: 109/60 HR: 76 bpm Sonogrphr: STEPHENIE Cooper Pat. Stat.:Inpatient Room: [facility] Study Status:Final Echo Event ID:[id number] Order ID: [id number] Reason for Study:Hypotension-suspected cardiac etiology History / Clinical:Pulmonary Hypertension Procedures:Portable, Stat, Intravenous Optison Contrast, 2D Echo Limited Race: C SUMMARY: LV EF is normal. Difficult to assess regional wall motion; however it appears grossly normal. Trace posterolateral pericardial effusion. FINDINGS: LV: LV size is normal. Concentric left ventricular remodeling. LV EF is normal. Difficult to assess regional wall motion; however it appears grossly normal. Estimated EF is 65-69% RV: RV size is normal. RV systolic function is grossly normal. LA: LA size is normal. RA: RA size is normal. AO: Aortic root diameter is normal. LORA: Trace posterolateral pericardial effusion. AV: Aortic valve not well seen. MV: No structural MV abnormalities noted. PV: Pulmonic valve not well seen. TV: No structural TV abnormalities noted. Other: Insufficient TR jet to estimate PA systolic pressure. MEASUREMENTS: 2D Parasternal [place] LVOT 1.9 cm LA Ds 3.1 cm LVIDd 4.2 cm Index 1.9 cm/m Ao An 1.7 cm LVIDs 2.7 cm Ao Rtd 2.5 cm Index 1.2 cm/m LV%fs 35.7 % LV Mass 178.2 g (87-129) IVSd 1.2 cm LVM Index 82.5 g/m2 LVPWd 1.2 cm RWT 0.6 LA Sng Plane LA Area 17.4 cm2 (8.8-23.4) LA Vol 40.6 ml Index 18.8 ml/m LA LngAx 6 cm Signed 10/01/2017 04:30 PM Migue Walls M.D. ECG 12 lead (10/01/2017 12:05 PM)Only the most recent of4 resultswithin the time period is included. Component Value Ref Range Ventricular rate 90 Atrial rate 90 WV interval 126 QRSD interval 82 QT interval 370 QTC interval 452 P axis 1 46 QRS axis 1 38 T wave axis 39 EKG impression Normal sinus rhythm-Normal ECG-In automated comparison with ECG of 01-OCT-2017 06:25,-Vent. rate has decreased BY 72 BPM- Specimen Performing Laboratory [facility] [address] [place] [address] Respiratory culture, quantitative (10/01/2017 9:09 AM) Component Value Ref Range Respiratory culture isolate, Gram negative rods quantitative 10-2 cfu/ml (A) Comment: Specimen Information Specimen Source: Mini bronchial alveolar lavage Specimen Site: Right and left lobes Respiratory culture isolate, Normal oral carlos quantitative 10-2 cfu/ml (A) Specimen Performing Laboratory Mini bronchial alveolar lavage - [facility] and [facility] PATH[facility]OM[facility] left [facility] [address] [place] [address] D-dimer (09/30/2017 5:45 PM) Component Value Ref Range D-dimer 1.26 (H) 0.00 - 0.40 ug/mL FEU Comment: Units are ug/ml Fibrinogen Equivalent Unit. When combined with low clinical probability, D-dimer results of less than 0.5 ug/ml FEU have a good negativepredictive value in excluding PE or DVT. For D-dimer results greater than 0.5ug/ml FEU further testing is indicated if PE or DVT is suspectedclinically. Elevated D-dimer results have been reported in DVT, PE, and DIC cases and may indicate the presence of a clot. D-dimer results may be elevated due to old age, , inflammatory diseases, trauma, post-operative states, sepsis, and malignancies. Specimen Performing Laboratory Blood [facility] [address] [place] [address] NM Cardiac Shunt Evaluation (09/25/2017 8:50 AM) Specimen Performing Laboratory [facility] [address] [place] [address] Narrative NM CARDIAC SHUNT EVALUATION INDICATION:Pulmonary hypertension, evaluate for pulmonary embolism. COMPARISON:Chest CT dated 09/24/2017. TECHNIQUE:Planar ventilation images were acquired after the inhalation of 15 mCi of Xe-133 gas. Planar perfusion images were acquired after the IV administration of 5 mCi of Tc-99m MAA.Shunt views of the head were obtained. FINDINGS:Ventilation images demonstrate decreased ventilation to the lung periphery. Washout images demonstrate no gas trapping.Perfusion images demonstrate decreased perfusion to the lung periphery, matching the ventilation images.No mismatched defects. Shunt views demonstrate mild uptake. IMPRESSION: 1.Low probability for acute PE. 2.No definite evidence for chronic PE.Multiple matched defects in both lungs are most compatible with airspace disease seen on comparison CT. 3.There is evidence for right to left shunt. [facility]-[id number] Procedure Note Interface, Radiology Results Incoming - 09/25/2017 9:41 AM CDT NM CARDIAC SHUNT EVALUATION INDICATION: Pulmonary hypertension, evaluate for pulmonary embolism. COMPARISON: Chest CT dated 09/24/2017. TECHNIQUE: Planar ventilation images were acquired after the inhalation of 15 mCi of Xe-133 gas. Planar perfusion images were acquired after the IV administration of 5 mCi of Tc-99m MAA. Shunt views of the head were obtained. FINDINGS: Ventilation images demonstrate decreased ventilation to the lung periphery. Washout images demonstrate no gas trapping. Perfusion images demonstrate decreased perfusion to the lung periphery, matching the ventilation images. No mismatched defects. Shunt views demonstrate mild uptake. IMPRESSION: 1. Low probability for acute PE. 2. No definite evidence for chronic PE. Multiple matched defects in both lungs are most compatible with airspace disease seen on comparison CT. 3. There is evidence for right to left shunt. [facility]-[id number] Echocardiogram complete w contrast and 3D if needed (09/24/2017 1:29 PM) Specimen Performing Laboratory [facility] [address] [place] [address] Narrative Echocardiography Report [address]Name:FANNIE DELACRUZ Pat.ID:[id number] .Date: 09/24/2017 Refer.MD:BERHANE ROA MD Exam Time: 11:28:00 AM Study Type:Routine Echo Height:65inWeight: 200lb BSA: 1.98 m2 DOBAge:1960,57Y Sex: FEMALEBP:120/53 HR:99 bpmSonogrphr: [place] RDCS Pat. Stat.:[facility] Study Status:Final Echo Event ID:[id number] Order ID:[id number] Reason for Study:Pulmonary Hypertension- Routine eval of patients with known resting pulmonary hypertenions History / Clinical:Pulmonary Hypertension Procedures:2D Echo, Colorflow Doppler, Portable, Intravenous Definity Contrast Race:C FINDINGS: LV: LV size is normal. Concentric left ventricular remodeling. LVEF is normal. Overall wall motion is normal. Estimated EFis 65-69% RV: RV size is normal. RV systolic function is normal. LA: LA size is normal. RA: RA size is normal. AO: Aortic root diameter is normal. LORA: Trace anterior pericardial effusion. AV: No structural AV abnormalities noted. MV: Mild mitral annular calcification. PV: No structural PV abnormalities noted. TV: No structural TV abnormalities noted. Mild tricuspid regurgitation Other:Estimated PA systolic pressure is 69 mmHg, assuming a mean RAPof 5 mmHg. MEASUREMENTS: DOPPLER LVOT Stroke Vol LVOT 1.8 cmLVOT SV 66.4 ml LVOT TVI26.1 cmLVOT CO6.8 l/min LVOT Tm264 msecHR 103 bpm 2D Parasternal [place] LVIDd3.6 cmIndex 1.8 cm/m LA Ds4.1 cm LVIDs2.4 cmAo Rtd 3.1 cm Index1.6 cm/m LV%fs 32.7 % LV Psxz949.8 g(87-129) IVSd 1 cmLVM Index 60.5 g/m2 LVPWd1.2 cmRWT0.7 LA Sng Plane LA Area 21 cm2(8.8-23.4) LA Vol 55 ml Index27.8 ml/m LA LngAx 6.4 cm MMODE RV TAPSE RV T Dim 2.2 cm Signed 09/24/2017 09:38 PM Connor Jenkins M.D. Procedure Note Interface, Radiology Results In - 09/24/2017 9:39 PM CDT Echocardiography Report [address] [place] [address] Pat.Name: FANNIE DELACRUZ Pat.ID: [id number] .Date: 09/24/2017 Refer.MD: BERHANE ROA MD Exam Time: 11:28:00 AM Study Type:Routine Echo Height: 65in Weight: 200lb BSA: 1.98 m2 Age: 10 1960,57Y Sex: FEMALE BP: 120/53 HR: 99 bpm Sonogrphr: [place] RDCS Pat. Stat.:Inpatient Room: [facility] Study Status:Final Echo Event ID:[id number] Order ID: [id number] Reason for Study:Pulmonary Hypertension- Routine eval of patients with known resting pulmonary hypertenions History / Clinical:Pulmonary Hypertension Procedures:2D Echo, Colorflow Doppler, Portable, Intravenous Definity Contrast Race: C FINDINGS: LV: LV size is normal. Concentric left ventricular remodeling. LV EF is normal. Overall wall motion is normal. Estimated EF is 65-69% RV: RV size is normal. RV systolic function is normal. LA: LA size is normal. RA: RA size is normal. AO: Aortic root diameter is normal. LORA: Trace anterior pericardial effusion. AV: No structural AV abnormalities noted. MV: Mild mitral annular calcification. PV: No structural PV abnormalities noted. TV: No structural TV abnormalities noted. Mild tricuspid regurgitation Other: Estimated PA systolic pressure is 69 mmHg, assuming a mean RAP of 5 mmHg. MEASUREMENTS: DOPPLER LVOT Stroke Vol LVOT 1.8 cm LVOT SV 66.4 ml LVOT TVI 26.1 cm LVOT CO 6.8 l/min LVOT Tm 264 msec HR 103 bpm 2D Parasternal [place] LVIDd 3.6 cm Index 1.8 cm/m LA Ds 4.1 cm LVIDs 2.4 cm Ao Rtd 3.1 cm Index 1.6 cm/m LV%fs 32.7 % LV Mass 119.8 g (87-129) IVSd 1 cm LVM Index 60.5 g/m2 LVPWd 1.2 cm RWT 0.7 LA Sng Plane LA Area 21 cm2 (8.8-23.4) LA Vol 55 ml Index 27.8 ml/m LA LngAx 6.4 cm MMODE RV TAPSE RV T Dim 2.2 cm Signed 09/24/2017 09:38 PM Connor Jenkins M.D. XR Abdomen 2 Vw Ap W Upright And/Or Decubitus (09/24/2017 9:32 AM) Specimen Performing Laboratory [facility] [address] [place] [address] Narrative EXAM:XR ABDOMEN 2 VW AP W UPRIGHT AND OR DECUBITUS CLINICAL:Bowel obstruction COMPARISON:09/22/2017 chest radiograph, 09/21/2017 abdominal radiograph IMPRESSION: 1.Nonspecific bowel gas. No air-fluid levels appreciated on lateral view. 2.Nasogastric tube remains with tip in the stomach. 3.No free air. 4.IVC filter, positioning suggests near the iliac confluence. Postsurgical changes in the right abdomen. Right groin catheter with tip at the level of the right sacrum. 5.Mild scoliosis and degenerative changes in the lumbar spine. [id number] Procedure Note Interface, Radiology Results Incoming - 09/24/2017 9:42 AM CDT EXAM: XR ABDOMEN 2 VW AP W UPRIGHT AND OR DECUBITUS CLINICAL: Bowel obstruction COMPARISON: 09/22/2017 chest radiograph, 09/21/2017 abdominal radiograph IMPRESSION: 1. Nonspecific bowel gas. No air-fluid levels appreciated on lateral view. 2. Nasogastric tube remains with tip in the stomach. 3. No free air. 4. IVC filter, positioning suggests near the iliac confluence. Postsurgical changes in the right abdomen. Right groin catheter with tip at the level of the right sacrum. 5. Mild scoliosis and degenerative changes in the lumbar spine. [id number] SS-B antibody (09/23/2017 3:06 PM) Component Value Ref Range Sjogren's SS-B antibody <0.2 0.0 - 0.9 AI Comment: SS-B is less sensitive than SS-A for Sjogren's syndrome, but is more specific and is useful in distinguishing SLE from Sjogren's. SS-A should beordered separately if clinically warranted. Specimen Performing Laboratory Serum [facility] [address] [place] [address] SS-A antibody (09/23/2017 3:06 PM) Component Value Ref Range Sjogren's SS-A antibody <0.2 0.0 - 0.9 AI Comment: SS-A is sensitive for Sjogren's syndrome, but may also be positive with SLE(up to 30% of SLE patients are positive for SS-A). SS-B is less sensitive, but is useful in distinguishing SLE from Sjogren's, and should be ordered if clinically warranted Specimen Performing Laboratory Serum [facility] [address] [place] [address] Scl-70 antibody (09/23/2017 3:06 PM) Component Value Ref Range Scleroderma SCL-70 Ab <0.2 0.0 - 0.9 AI Comment: Scl-70 is associated with SSc scleroderma. For CREST scleroderma, anti-centromere antibody should be ordered separately. Specimen Performing Laboratory Serum [facility] [address] [place] [address] Cyclic citrullinated peptide antibody, IgG (09/23/2017 3:06 PM) Component Value Ref Range Cyclic citrullin peptide Ab <0.5 0.0 - 2.9 U/mL Comment: Anti-cyclic citrullinated peptide (Anti-CCP) IgG antibodies are present in 60-80% of patients with rhuematoid arthritis (RA) and have specificity of 95-98%. These autoantibodies may be present in the preclinical phase of thedisease, are associated with future RA development and may be useful in predicting increased severity and erosive disease course. Specimen Performing Laboratory Serum [facility] AND [facility] [address] [place] [address] DNA Ab screen (09/23/2017 1:01 PM) Component Value Ref Range DNA Ab screen Not Detected Not-Detected Specimen Performing Laboratory Blood [facility] [address] [address] Hepatitis acute panel (09/23/2017 1:01 PM) Component Value Ref Range Hepatitis A IgM Non-reactive Non-reactive Hepatitis B core IgM Non-reactive Non-reactive Hepatitis B surface Ag Non-reactive Non-reactive Hepatitis C Ab Non-reactive Non-reactive Specimen Performing Laboratory Serum [facility] [address] [address] HIV 1, 2 antibody (09/23/2017 1:01 PM) Component Value Ref Range HIV 1, 2 antibody Non-reactive Non-reactive Comment: Starting from September 29 2015, 4th generation HIV screening and confirmation assays are in use at [facility], consistent with the CDC-recommended algorithm. The screening test detects antibodies to HIV-1, HIV-2 and the p24 antigen. Positive screening results will be automatically reflexed to a HIV-1/HIV-2 differentiation assay. Indeterminant HIV-1 results will be further automatically reflexed to a nucleic acid test for detection of acute infection. Western blot will no longer be performed as a confirmation test. For a quick reference guide on the testing algorithm, please refer to: http://stacks.cdc.gov/view/cdc/59945. Specimen Performing Laboratory Serum [facility] [address] [place] [address] Anti-neutrophilic cytoplasmic Abs panel (09/23/2017 1:01 PM) Component Value Ref Range ANCA screen Negative Negative Specimen Performing Laboratory Blood [facility] [address] [address] Rheumatoid factor (09/23/2017 1:01 PM) Component Value Ref Range Rheumatoid factor 12 0 - 13 IU/mL Specimen Performing Laboratory Plasma specimen [facility] AND [address] [address] CHRIS (09/23/2017 1:01 PM) Component Value Ref Range CHRIS screen Negative Negative Specimen Performing Laboratory Blood [facility] AND [facility] [address] [place] [address] Lactic acid level, SEPSIS - Now and repeat 2x every 3 hours (09/22/2017 9:20 AM )Only the most recent of3 resultswithin the time period is included. Component Value Ref Range Lactic acid 1.3 0.5 - 2.2 mmol/L Specimen Performing Laboratory Blood [facility] [address] [address] Manual differential (09/22/2017 5:20 AM)Only the most recent of4 resultswithin the time period is included. Component Value Ref Range Manual differential PERFORMED Neutrophils 66.0 39.0 - 69.0 % Lymphocytes 10.0 (L) 25.0 - 45.0 % Monocytes 17.0 (H) 0.0 - 10.0 % Eosinophils 1.0 0.0 - 5.0 % Basophils 0.0 0.0 - 1.0 % Metamyelocytes 4 % Myelocytes 2 % Promyelocytes 0 % Platelet slide review Mary Ellen adequate Anisocytosis Moderate Polychromasia Moderate Spherocytes Occasional Ovalocytes Moderate Specimen Performing Laboratory [facility] [address] [place] [address] Prealbumin level (09/22/2017 4:00 AM) Component Value Ref Range Prealbumin 23 16 - 32 mg/dL Specimen Performing Laboratory Serum [facility] [address] [address] Osmolality, serum (09/21/2017 9:50 AM) Component Value Ref Range Osmolality 337 (HH) 275 - 295 mOsm/kg Specimen Performing Laboratory Blood [facility] AND [facility] [address] [place] [address] Osmolality, urine (09/21/2017 9:28 AM) Component Value Ref Range Osmolality, urine 362 50 - 1,400 mOsm/kg Specimen Performing Laboratory Urine [facility] [address] [address] US Renal (09/20/2017 6:55 PM) Specimen Performing Laboratory [facility] [address] [place] [address] Narrative EXAM: RENAL CLINICAL HISTORY:Elevated abnormal renal function tests COMPARISON:CT, 09/15/2017 FINDINGS: There is mild increased cortical echogenicity of the bilateral kidneys, nonspecific but may be reflective of medical renal disease. The right kidney measures 9.1 cm; cortex measures 1.4 cm. The left kidney measures 11.8 cm; cortex measures 2.0 cm. A few bilateral renal cysts are identified measuring up to 3.1 x 3.0 x 1.6 cm on the right and 2.8 x 3.2 x 2.4 cm on the left. There is no evidence of renal mass, calculi, or hydronephrosis. Bladder was not well-visualized. IMPRESSION: 1.Mild increased cortical echogenicity of the bilateral kidneys, nonspecific but may be reflective of medical renal disease. A few bilateral renal cysts are identified measuring up to 3.1 x 3.0 x 1.6 cm on the right and 2.8 x 3.2 x 2.4 cm on the left. There is no evidence of renal mass, calculi, or hydronephrosis. [facility]-[id number] Procedure Note [facility], Radiology Results Incoming - 09/21/2017 12:09 AM CDT EXAM: US RENAL CLINICAL HISTORY: Elevated abnormal renal function tests COMPARISON: CT, 09/15/2017 FINDINGS: There is mild increased cortical echogenicity of the bilateral kidneys, nonspecific but may be reflective of medical renal disease. The right kidney measures 9.1 cm; cortex measures 1.4 cm. The left kidney measures 11.8 cm; cortex measures 2.0 cm. A few bilateral renal cysts are identified measuring up to 3.1 x 3.0 x 1.6 cm on the right and 2.8 x 3.2 x 2.4 cm on the left. There is no evidence of renal mass, calculi, or hydronephrosis. Bladder was not well-visualized. IMPRESSION: 1. Mild increased cortical echogenicity of the bilateral kidneys, nonspecific but may be reflective of medical renal disease. A few bilateral renal cysts are identified measuring up to 3.1 x 3.0 x 1.6 cm on the right and 2.8 x 3.2 x 2.4 cm on the left. There is no evidence of renal mass, calculi, or hydronephrosis. [facility]-[id number] Gastrointestinal panel (09/20/2017 4:10 PM) Component Value Ref Range Gastrointestinal panel Negative for all pathogens tested: Negative for Salmonella Negative for Campylobacter Negative for Diarrheagenic E coli/Shigella Negative for Shiga-like toxin-producing E coli Negative for Plesiomonas shigelloides Negative for Yersinia enterocolitica Negative for Vibrio species Negative for Clostridium difficile (Toxin A/B) Negative for Cryptosporidium Negative for Giardia lamblia Negative for Cyclospora cayeteanensis Negative for Entamoeba histolytica Negative for Adenovirus F 40/41 Negative for Astrovirus Negative for Norovirus GI/GII Negative for Rotavirus A Negative for Sapovirus Negative for Clostridium difficile toxin Negative for E coli 0157 This real-time PCR assay detects the presence of nucleic acids (RNA or DNA) for the gastrointestinal pathogens listed. A result of "Not-detected" does not exclude the possibility of the presence of one or more pathogens at concentrations less than the detectable limits of the assay. Comment: Specimen Information Specimen Source: Stool Specimen Site: Nonpreserved Specimen Performing Laboratory [facility] [address] [place] [address] MRI Head External Study (09/19/2017 1:07 PM) Specimen [place]forming [place] [address] Narrative This exam was not acquired at a [facility] facility and has not been interpreted by a [facility] Provider.The exam was imported into our imaging system for comparisons purposes. CT Head External Study (09/19/2017 10:00 AM) Specimen [place]forming [place] [address] Narrative This exam was not acquired at a [facility] facility and has not been interpreted by a [facility] Provider.The exam was imported into our imaging system for comparisons purposes. XR Abd/Pelvic External Study (09/18/2017 7:20 AM)Only the most recent of2 resultswithin the time period is included. Specimen Performing [place] [address] Narrative This exam was not acquired at a [facility] facility and has not been interpreted by a [facility] Provider.The exam was imported into our imaging system for comparisons purposes. CT Abd/Pelvic External Study (09/15/2017 9:46 AM) Specimen Performing [place] [address] Narrative This exam was not acquired at a [facility] facility and has not been interpreted by a [facility] Provider.The exam was imported into our imaging system for comparisons purposes. XR Chest External Study (09/15/2017 7:00 AM) Specimen Performing [place] [address] Narrative This exam was not acquired at a [facility] facility and has not been interpreted by a [facility] Provider.The exam was imported into our imaging system for comparisons purposes. after 11/21/2016 Insurance Payer Benefit Plan / Group Subscriber ID Type Phone Address AETNA AETNA HMO,POS,EPO, MC/EC xxxxxxxxxx HMO Home: [facility] [phone] [address]
[2017-11-22] MEDS ORDERED: ONDANSETRON 4 MG/2 ML VIAL ONE (08:14)
[2017-11-22] MEDS ORDERED: NA CHLORIDE 0.9% 1,000 ML ONE (08:14)
[2017-11-22] MEDS ORDERED: MEPERIDINE HCL 25 MG/0.5 ML ONE ×4 (09:15→14:00)
[2017-11-22 09:32] LABS: Absolute Lymphocytes (CBC) 0.6 K/uL (0.7-4.9); Absolute Monocytes 0.4 K/uL (0.1-1.3); Absolute Neutrophil 5.6 K/uL (1.8-8.0); Basophils % 1.5 % (0-1.3); Eosinophils % 1.7 % (0-4.4); Hematocrit 37.7 % (36.0-45.0); Lymphocytes % 8.5 % (15.3-44.8); MCH 30.7 pg (27.0-35.0); Monocytes % 5.5 % (3.3-12.3)
[2017-11-22 09:40] LABS: Potassium 4.2 mEq/L (3.6-5.0)
[2017-11-22 09:46] LABS: Albumin 3.6 g/dL (3.2-5.5); Bilirubin Direct 0.1 mg/dL (0-0.2); Bilirubin Total 0.5 mg/dL (0.3-1.2); Protein, Total 6.8 g/dL (6.0-8.3)
--- NOTE | 2017-11-22 10:47 | EKG ---
Test Date: 2017-11-22 Test Time: 08:26:36 Account Advisor: PHONG MEASUREMENT RESULTS: Intervals: Rate: 82 DE: 136 QRSD: 88 QT: 382 QTc: 446 [place]: P: 29 DE: 136 QRS: 35 T: 59 INTERPRETIVE STATEMENTS: Normal sinus rhythm Normal ECG Compared to ECG 01/08/2013 21:51:44 Sinus tachycardia no longer present ST (T wave) deviation no longer present Electronically Signed On 11-22-17 10:46:14 CDT by Khang Salmeron
[2017-11-22] MEDS ORDERED: PROMETHAZINE 25 MG/ML VIAL ONE ×2 (10:58→14:00)
--- NOTE | 2017-11-22 11:31 | RAD REPORT ---
EXAM DESCRIPTION: CT - Abdomen Pelvis W Contrast - 11/22/2017 11:13 am CLINICAL HISTORY: Abdominal pain, vomiting, history of constipation, history of hysterectomy and col on/partial colon resection, possible bowel obstruction COMPARISON: CT study August 2017. TECHNIQUE: Biphasic, helical CT imaging of the abdomen and pelvis was performed following 100 ml non -ionic IV contrast. Oral contrast was given. All CT scans are performed using dose optimization technique as appropriate and may include automated exposure control or mA/KV adjustment according to patient size. FINDINGS: Atelectasis and/ or scarring changes are present in the posterior lung bases. No pleural e ffusion. No pericardial thickening or effusion. The liver, spleen, and pancreas show no suspicious findings. No biliary tree dilatation. A normal flu id filled gallbladder is not identified. Gallbladder may be absent. Patient may have a contracted gal lbladder or normal variant biliary dilatation in the gallbladder fossa as the reservoir effect from a cholecystectomy. Findings have not changed an active process is not suspected. Renal function is symmetric. Patient has numerous variably sized cysts throughout the kidneys. There appears to be some enlargement and hypodensity of renal pyramids as well. No obstructing or nonobstru cting calculi. A new renal process from prior imaging is not identified. Urinary bladder is contracte d. Uterus is absent. There is a prominent laxity along the pelvic floor with low-lying rectum and vag inal vault. Floor of the urinary bladder is also low lying. Stomach is distended by the oral contrast. Oral contrast remains within the lumen of the stomach. An acute process at the pylorus and duodenal bulb not suspected. Distended fluid-filled duodenum is note d. Small bowel is dilated from ligament of Treitz to the point of a previously detailed right lower q uadrant ventral hernia. Small bowel is decompressed exiting the hernia. Colon is decompressed. Hernia is complex with 2 different portions of the small bowel extending into the hernia. Portion of the ri ght side colon has been resected. The colon small bowel anastomosis is at the lateral superior aspect of this hernia. No free air, pneumatosis or free fluid. No bulky lymphadenopathy. No adrenal abnormality. Disc and bony degenerative changes are present. No acute bone finding. Vena cava filter is in place. IMPRESSION: Small bowel obstruction with abrupt transition point at the site of midline and right lo wer quadrant ventral hernia. Distal ileum loops exiting the hernia are decompressed with decompressed colon. No free air, free fluid or extravasation of contrast or bowel content. Prominent pelvic floor laxity with partially prolapsed bladder vaginal vault and distal rectum.
[2017-11-22] MEDS ORDERED: CEFTRIAXONE/SWI 1gm 1 GM/10 ML SYR ONE (12:37)
[2017-11-22] MEDS ORDERED: METRONIDAZOLE 500mg IVPB 500 MG/100 ML BAG IV ONE ×2 (12:37→12:38)
[2017-11-22] MEDS ORDERED: D5 0.45 NS 1,000 ML IV ONE (12:41)
--- NOTE | 2017-11-22 13:31 | ER ---
Nurse's Notes [facility] Name: Fannie Plunkett Age: 57 yrs Sex: Female : 1960 Arrival Date: 11/22/2017 Time: 07:53 Bed 19 Private MD: Michael Villegas V Diagnosis: Small Bowel Obstruction;Incarcerated hernia Presentation: 11/22 07:55 Presenting complaint: Patient states: generalized abd pain that began last night. Pt aa5 states "I threw up a little bit and I think I'm a little constipated". pt reports small BM yesterday. 07:55 Transition of care: patient was not received from another setting of care. Onset of aa5 symptoms was October 2017. Risk Assessment: Do you want to hurt yourself or someone else? Patient reports no desire to harm self or others. Initial Sepsis Screen: Does the patient meet any 2 criteria? No. Patient's initial sepsis screen is negative. Does the patient have a suspected source of infection? No. Patient's initial sepsis screen is negative. Care prior to arrival: None. 07:55 Method Of Arrival: Ambulatory aa5 07:55 Acuity: MODESTA 3 aa5 Historical: - Allergies: 08:03 Codeine; aa5 08:03 Morphine; aa5 08:03 NSAIDS; aa5 08:03 Tape; aa5 - PMHx: 08:03 Anemia; Depression; GERD; Hyperlipidemia; Hypothyroidism; ibs; PAH; Sleep Apnea; aa5 - PSHx: 08:03 Hysterectomy; Hernia repair; Knee surgery; Colon resection; back surg for 3 pinched aa5 nerves; breast needle biopsy; - Immunization history:: Pneumococcal vaccine is up to date, Flu vaccine is up to date. - Social history:: Smoking status: Patient/guardian denies using tobacco. - Ebola Screening: : No symptoms or risks identified at this time. - Family history:: not pertinent. - Hospitalizations: : No recent hospitalization is reported. Screenin:30 Abuse screen: Denies threats or abuse. Denies injuries from another. Nutritional hb screening: No deficits noted. Tuberculosis screening: No symptoms or risk factors identified. Fall Risk None identified. Assessment: 08:10 General: Appears in no apparent distress. uncomfortable, Behavior is calm, cooperative. hb Pain: Pain currently is 8 out of 10 on a pain scale. Neuro: Level of Consciousness is awake, alert, obeys commands, Oriented to person, place, time, situation. Cardiovascular: Capillary refill < 3 seconds Patient's skin is warm and dry. Respiratory: Airway is patent Trachea midline Respiratory effort is even, unlabored, Respiratory pattern is regular, symmetrical, Breath sounds are clear bilaterally. GI: Abdomen is obese, Bowel sounds present X 4 quads. Abd is soft X 4 quads Abdomen is tender to palpation diffusely Reports lower abdominal pain, upper abdominal pain, nausea. : No signs and/or symptoms were reported regarding the genitourinary system. EENT: No signs and/or symptoms were reported regarding the EENT system. Derm: No signs and/or symptoms reported regarding the dermatologic system. Skin is intact, is healthy with good turgor, Skin is pink, warm \\T\\ dry. Musculoskeletal: No signs and/or symptoms reported regarding the musculoskeletal system. 08:53 Reassessment: inside lab called for blood draw. Dr. Todd notified. hb 09:25 Reassessment: Pt finished drinking oral contrast, CT dept notified. hb 10:03 Reassessment: pt c/o abdominal pain 6/10. Dr. Todd notified, repeat Demerol hb administered as ordered. 11:00 Reassessment: Patient is alert/active/playful, equal unlabored respirations, skin hb warm/dry/pink. Pt c/o nausea, Dr. Todd notified, phenergan administered as ordered. Pt transported to CT via stretcher with tech. Family remains at bedside. 11:35 Reassessment: Pt returned from radiology with tech. NAD. hb 12:00 Reassessment: Patient appears in no apparent distress at this time. No changes from hb previously documented assessment. Patient and/or family updated on plan of care and expected duration. Pain level reassessed. Patient is alert, oriented x 3, equal unlabored respirations, skin warm/dry/pink. 13:00 Reassessment: Patient appears in no apparent distress at this time. No changes from hb previously documented assessment. Patient and/or family updated on plan of care and expected duration. Pain level reassessed. Patient is alert, oriented x 3, equal unlabored respirations, skin warm/dry/pink. 14:15 Reassessment: Pt reports pain 8/10 and nausea, Dr. Todd notified, repeat Demerol and hb Phenergan administered as ordered. 15:00 Reassessment: Patient appears in no apparent distress at this time. Patient and/or hb family updated on plan of care and expected duration. Pain level reassessed. Patient is alert, oriented x 3, equal unlabored respirations, skin warm/dry/pink. Patient states symptoms have improved. Vital Signs: 08:11 BP 104 / 53; Pulse 84; Resp 16 S; Pulse Ox 94% on R/A; Weight 108.86 kg (R); Height 5 jl7 ft. 4 in. (162.56 cm) (R); Pain 8/10; 09:00 BP 124 / 64; Pulse 80; Resp 16; Pulse Ox 98% on 2 lpm NC; Pain 6/10; hb 10:00 BP 118 / 56; Pulse 88; Resp 17; Pulse Ox 98% on 2 lpm NC; Pain 5/10; hb 11:00 BP 122 / 62; Pulse 86; Resp 15; Pulse Ox 98% on 2 lpm NC; Pain 5/10; hb 11:45 BP 116 / 62; Pulse 78; Resp 17; Pulse Ox 98% on 2 lpm NC; hb 12:30 BP 114 / 66; Pulse 76; Resp 17; Pulse Ox 98% on 2 lpm NC; hb 13:30 BP 118 / 68; Pulse 74; Resp 17; Pulse Ox 97% on 2 lpm NC; hb 14:30 BP 107 / 61; Pulse 62; Resp 18; Temp 98.5; Pulse Ox 98% on 2 lpm NC; Pain 3/10; hb 15:15 BP 124 / 56; Pulse 84; Resp 17; Temp 98; Pulse Ox 100% on 2 lpm NC; Pain 5/10; hb 08:11 Body Mass Index 41.19 (108.86 kg, 162.56 cm) jl7 ED Course: 07:53 Patient arrived in ED. sb2 07:53 Michael Villegas MD is Private Physician. sb2 07:55 Arm band placed on Patient placed in an exam room, on a stretcher. aa5 07:57 Hao Todd MD is Attending Physician. rn 08:02 Triage completed. aa5 08:07 Sabra Regalado, RN is Primary Nurse. hb 08:15 Patient has correct armband on for positive identification. Placed in gown. Bed in low hb position. Call light in reach. Side rails up X 1. 08:30 EKG done, by operating room surgical technician. reviewed by Hao Todd MD. tc 08:40 Missed attempt(s): 22 gauge in left forearm. Bleeding controlled, band aid applied, sv catheter tip intact. 08:44 Inserted saline lock: 24 gauge in right forearm, using aseptic technique. ,using sv aseptic technique. diffusics. 11:11 CT completed. Patient tolerated procedure well. Patient moved to CT via stretcher. mw3 Patient moved back from CT. 11:13 CT Abd/Pelvis - W/Contrast In Process Unspecified. EDMS 12:33 NGT: inserted 14 Fr. via left nare. verified return of gastric contents, to continuous hb suction. Returned bile. Patient tolerated well. 13:16 Chest Single View XRAY In Process Unspecified. EDMS 13:30 Michael Villegas MD is Hospitalizing Provider. rn 15:27 No provider procedures requiring assistance completed. Patient admitted, IV remains in hb place. Administered Medications: 08:51 Drug: Zofran 4 mg Route: IVP; Site: right forearm; hb 08:51 Drug: NS 0.9% 500 ml Route: IV; Rate: bolus; Site: right forearm; hb 09:18 Drug: Demerol - Meperidine 12.5 mg Route: IVP; Site: right forearm; hb 09:30 Follow up: Response: No adverse reaction; Pain is decreased hb 10:02 Drug: Demerol - Meperidine 12.5 mg Route: IVP; Site: right forearm; hb 10:38 Follow up: Response: No adverse reaction; Pain is decreased hb 11:01 Drug: Phenergan 12.5 mg Route: IVP; Site: right forearm; hb 11:40 Follow up: Response: No adverse reaction hb 12:50 Drug: D5-1/2 NS 1000 ml Route: IV; Rate: 100 ml/hr; Site: right forearm; hb 15:00 Follow up: Response: No adverse reaction; IV Status: Infusion continued upon admission hb 12:51 Drug: Rocephin - (cefTRIAXone) 1 grams Route: IVPB; Infused Over: 30 mins; Site: right hb forearm; 13:00 Follow up: Response: No adverse reaction; IV Status: Completed infusion hb 12:51 Drug: Flagyl 500 mg Volume: 100 ml; Route: IVPB; Rate: 200 ml/hr; Infused Over: 30 hb mins; Site: right forearm; 13:55 Follow up: Response: No adverse reaction; IV Status: Completed infusion hb 14:11 Drug: Phenergan 12.5 mg Route: IVP; Site: right forearm; hb 14:30 Follow up: Response: No adverse reaction hb 14:12 Drug: Demerol - Meperidine 12.5 mg Route: IVP; Site: right forearm; hb 14:35 Follow up: Response: No adverse reaction; Pain is decreased hb Output: 15:30 Gastric: 950ml (NGT); Total: 950ml. hb Outcome: 13:30 Decision to Hospitalize by Provider. rn 15:27 Admitted to Med/surg accompanied by tech, family with patient, room 228, with oxygen, hb with chart, Report called to MARC Gunter 15:27 Condition: stable 15:27 Instructed on the need for admit, Demonstrated understanding of instructions. 15:57 Patient left the ED. hb Signatures: Dispatcher [employer] Jessica Salinas, RN RN Hao Matos MD MD rn Calderon, Audri, RN RN aa5 Rae Nieves, roofing machine operator EKG Ttc Sabra Regalado RN RN hb Leal, Jahala RN RN jl7 Nicky Zhu2 Lea Braun mw3
--- NOTE | 2017-11-22 13:32 | EDPHYS ---
Physician Documentation [facility] Name: Fannie Plunkett Age: 57 yrs Sex: Female : 1960 Arrival Date: 11/22/2017 Time: 07:53 Bed 19 Private MD: Michael Villegas V ED Physician Hao Todd HPI: 11/22 08:13 This 57 yrs old Female presents to ER via Ambulatory with complaints of Abd rn Pain > 50 y/o, Nausea, Constipation. 08:13 The patient presents to the emergency department with nausea, vomiting, abdominal pain. rn Onset: The symptoms/episode began/occurred yesterday. Possible causes: unknown. Severity of symptoms: At their worst the symptoms were moderate in the emergency department the symptoms are unchanged. The patient has experienced similar episodes in the past. Reports abd pain, nausea/vomiting/constipation, last bowel movement yesterday, no fever, normal appetite, hx of bowel obstruction in past and did not require surgery, no blood in stool.. Historical: - Allergies: 08:03 Codeine; aa5 08:03 Morphine; aa5 08:03 NSAIDS; aa5 08:03 Tape; aa5 - PMHx: 08:03 Anemia; Depression; GERD; Hyperlipidemia; Hypothyroidism; ibs; PAH; Sleep Apnea; aa5 - PSHx: 08:03 Hysterectomy; Hernia repair; Knee surgery; Colon resection; back surg for 3 pinched aa5 nerves; breast needle biopsy; - Immunization history:: Pneumococcal vaccine is up to date, Flu vaccine is up to date. - Social history:: Smoking status: Patient/guardian denies using tobacco. - Ebola Screening: : No symptoms or risks identified at this time. - Family history:: not pertinent. - Hospitalizations: : No recent hospitalization is reported. ROS: 08:13 Constitutional: Negative for fever, chills, and weight loss, Eyes: Negative for injury, rn pain, redness, and discharge, Neck: Negative for injury, pain, and swelling, Cardiovascular: Negative for chest pain, palpitations, and edema, Respiratory: Negative for shortness of breath, cough, wheezing, and pleuritic chest pain, Abdomen/GI: + abd pain, + nausea/vomiting/constipation MS/Extremity: Negative for injury and deformity, Skin: Negative for injury, rash, and discoloration, Neuro: Negative for headache, weakness, numbness, tingling, and seizure. Exam: 08:13 Constitutional: This is a well developed, well nourished patient who is awake, alert, rn and in no acute distress. Head/Face: Normocephalic, atraumatic. Eyes: Pupils equal round and reactive to light, extra-ocular motions intact. Lids and lashes normal. Conjunctiva and sclera are non-icteric and not injected. Cornea within normal limits. Periorbital areas with no swelling, redness, or edema. Cardiovascular: Regular rate and rhythm with a normal S1 and S2. No gallops, murmurs, or rubs. Normal PMI, no JVD. No pulse deficits. Respiratory: Lungs have equal breath sounds bilaterally, clear to auscultation and percussion. No rales, rhonchi or wheezes noted. No increased work of breathing, no retractions or nasal flaring. Abdomen/GI: soft, + mild mid abd tenderness, no rebound, non-tender hernia MS/ Extremity: Pulses equal, no cyanosis. Neurovascular intact. Full, normal range of motion. Equal circumference. Neuro: Awake and alert, GCS 15, oriented to person, place, time, and situation. Cranial nerves II-XII grossly intact. Motor strength 5/5 in all extremities. Sensory grossly intact. Vital Signs: 08:11 BP 104 / 53; Pulse 84; Resp 16 S; Pulse Ox 94% on R/A; Weight 108.86 kg (R); Height 5 jl7 ft. 4 in. (162.56 cm) (R); Pain 8/10; 09:00 BP 124 / 64; Pulse 80; Resp 16; Pulse Ox 98% on 2 lpm NC; Pain 6/10; hb 10:00 BP 118 / 56; Pulse 88; Resp 17; Pulse Ox 98% on 2 lpm NC; Pain 5/10; hb 11:00 BP 122 / 62; Pulse 86; Resp 15; Pulse Ox 98% on 2 lpm NC; Pain 5/10; hb 11:45 BP 116 / 62; Pulse 78; Resp 17; Pulse Ox 98% on 2 lpm NC; hb 12:30 BP 114 / 66; Pulse 76; Resp 17; Pulse Ox 98% on 2 lpm NC; hb 13:30 BP 118 / 68; Pulse 74; Resp 17; Pulse Ox 97% on 2 lpm NC; hb 14:30 BP 107 / 61; Pulse 62; Resp 18; Temp 98.5; Pulse Ox 98% on 2 lpm NC; Pain 3/10; hb 15:15 BP 124 / 56; Pulse 84; Resp 17; Temp 98; Pulse Ox 100% on 2 lpm NC; Pain 5/10; hb 08:11 Body Mass Index 41.19 (108.86 kg, 162.56 cm) jl7 MDM: 07:57 Patient medically screened. rn 11:48 ED course: Consulted with Dr. Hernandez, will consult, will admit to Dr. Villegas. rn 11:53 Differential diagnosis: Nonspecific abd pain, bowel obstruction. Data reviewed: vital rn signs, nurses notes, lab test result(s), radiologic studies, CT scan, and as a result, I will admit patient. Counseling: I had a detailed discussion with the patient and/or guardian regarding: the historical points, exam findings, and any diagnostic results supporting the discharge/admit diagnosis, lab results, radiology results, the need for further work-up and treatment in the hospital. Response to treatment: the patient's symptoms have mildly improved after treatment, and as a result, I will admit patient. Admission orders: after a detailed discussion of the patient's condition and case, the admit orders are written by me. 12:44 ED course: Delay in disposition as Dr. Villegas requested transfer to [facility] as she had rn been seen there recently and high risk surgery, have been attempting to contact Dr. Roa, at [facility]. . 13:28 ED course: [facility] without beds, unable to accept patient, they recommend admission rn here and reattempt transfer. . 11/22 08:13 Order name: Basic Metabolic Panel; Complete Time: 09:57 rn 11/22 08:13 Order name: CBC with Diff; Complete Time: 09:57 rn 11/22 08:13 Order name: Creatinine for Radiology; Complete Time: 09:57 rn 11/22 08:13 Order name: Hepatic Function; Complete Time: 09:57 rn 11/22 08:13 Order name: Lipase; Complete Time: 09:57 rn 11/22 08:13 Order name: Urine Microscopic Only; Complete Time: 13:57 rn 11/22 08:13 Order name: Blood Culture Adult (2) rn 11/22 08:13 Order name: Procalcitonin; Complete Time: 11:01 rn 11/22 08:13 Order name: Urine Culture rn 11/22 08:13 Order name: CT Abd/Pelvis - W/Contrast; Complete Time: 11:32 rn 11/22 08:13 Order name: Troponin (emerg Dept Use Only); Complete Time: 09:57 rn 11/22 10:25 Order name: Urine Dipstick--Ancillary (enter results); Complete Time: 13:57 em1 11/22 12:32 Order name: Chest Single View XRAY; Complete Time: 13:57 hb 11/22 08:13 Order name: IV Saline Lock; Complete Time: 08:52 rn 11/22 08:13 Order name: Labs collected and sent; Complete Time: 10:38 rn 11/22 08:13 Order name: Urine Dipstick-Ancillary (obtain specimen); Complete Time: 10:24 rn 11/22 08:13 Order name: EKG; Complete Time: 08:13 rn 11/22 08:13 Order name: EKG - Nurse/Tech; Complete Time: 08:52 rn 11/22 11:48 Order name: NG Tube; Complete Time: 12:32 rn 11/22 11:48 Order name: NPO; Complete Time: 12:05 rn Administered Medications: 08:51 Drug: Zofran 4 mg Route: IVP; Site: right forearm; hb 08:51 Drug: NS 0.9% 500 ml Route: IV; Rate: bolus; Site: right forearm; hb 09:18 Drug: Demerol - Meperidine 12.5 mg Route: IVP; Site: right forearm; hb 09:30 Follow up: Response: No adverse reaction; Pain is decreased hb 10:02 Drug: Demerol - Meperidine 12.5 mg Route: IVP; Site: right forearm; hb 10:38 Follow up: Response: No adverse reaction; Pain is decreased hb 11:01 Drug: Phenergan 12.5 mg Route: IVP; Site: right forearm; hb 11:40 Follow up: Response: No adverse reaction hb 12:50 Drug: D5-1/2 NS 1000 ml Route: IV; Rate: 100 ml/hr; Site: right forearm; hb 15:00 Follow up: Response: No adverse reaction; IV Status: Infusion continued upon admission hb 12:51 Drug: Rocephin - (cefTRIAXone) 1 grams Route: IVPB; Infused Over: 30 mins; Site: right hb forearm; 13:00 Follow up: Response: No adverse reaction; IV Status: Completed infusion hb 12:51 Drug: Flagyl 500 mg Volume: 100 ml; Route: IVPB; Rate: 200 ml/hr; Infused Over: 30 hb mins; Site: right forearm; 13:55 Follow up: Response: No adverse reaction; IV Status: Completed infusion hb 14:11 Drug: Phenergan 12.5 mg Route: IVP; Site: right forearm; hb 14:30 Follow up: Response: No adverse reaction hb 14:12 Drug: Demerol - Meperidine 12.5 mg Route: IVP; Site: right forearm; hb 14:35 Follow up: Response: No adverse reaction; Pain is decreased hb Disposition: 11/22/17 13:30 Hospitalization ordered by Michael Villegas for Inpatient Admission. Preliminary diagnosis are Small Bowel Obstruction, Incarcerated hernia. - Bed requested for Telemetry/MedSurg (Inpatient). - Status is Inpatient Admission. hb - Condition is Stable. - Problem is new. - Symptoms have improved. UTI on Admission? No Signatures: [facility] Lashawn Haddad RN RN dw Hao Todd MD MD rn Calderon, Audri, RN RN aa5 Sabra eRgalado RN RN Corrections: (The following items were deleted from the chart) 13:34 13:32 URINE DIPSTICK--ANCILLARY+U.LAB.BRZ ordered. [facility] 14:43 13:30 Hospitalization Ordered by Michael Villegas MD for Inpatient Admission. Preliminary diagnosis is Small Bowel Obstruction; Incarcerated hernia. Bed requested for Telemetry/MedSurg (Inpatient). Status is Inpatient Admission. Condition is Stable. Problem is new. Symptoms have improved. UTI on Admission? No. rn 15:57 14:43 11/22/2017 13:30 Hospitalization Ordered by Michael Villegas MD for Inpatient hb Admission. Preliminary diagnosis is Small Bowel Obstruction; Incarcerated hernia. Bed requested for Telemetry/MedSurg (Inpatient). Status is Inpatient Admission. Condition is Stable. Problem is new. Symptoms have improved. UTI on Admission? No. dw
[2017-11-22 13:33] LABS: Urine Blood TRACE (NEG); Urine Glucose NEGATIVE (NEG); Urine Protein 1+ (NEG); Urine Specific Gravity 1.015 (1.005-1.030)
[2017-11-22 13:34] LABS: Urine Bacteria 20-50 /HPF (<20); Urine RBC <5 /HPF (NONE SEEN)
--- NOTE | 2017-11-22 13:34 | RAD REPORT ---
EXAM DESCRIPTION: RAD - Chest Single View - 11/22/2017 1:17 pm CLINICAL HISTORY: Abdominal pain COMPARISON: September 15 TECHNIQUE: AP portable chest image was obtained 1308 hours . FINDINGS: Chronic interstitial lung disease is present. No peripheral mass, consolidation or signifi cant failure finding. Gastric tube extends below the diaphragm. Cardiac silhouette is accentuated by rotation and pericardial fat. Heart size is stable from prior imaging. No acute vascular engorgement. Vasculature is diminished slightly from prior imaging. No measurable pleural effusion and no pneumot horax. No gross bony abnormality seen. No acute aortic findings suspected. IMPRESSION: No acute cardiopulmonary process. No suspicious change from August imaging.
[2017-11-22 13:39] LABS: Urine Culture Reflex Order NOT NEEDED
[2017-11-22] MEDS: METRONIDAZOLE 500mg IVPB 500 MG/100 ML BAG IV SCH (17:06)
[2017-11-22] MEDS: D5 0.45 NS 1,000 ML IV SCH ×2 (17:06→22:18)
[2017-11-22 17:37] VITALS: BMI 41.1
--- NOTE | 2017-11-22 17:47 | P.HP ---
Certification for Inpatient Patient admitted to: Inpatient With expected LOS: >2 Midnights Practitioner: I am a practitioner with admitting privileges, knowledge of patient current condition, hospital course, and medical plan of care. Services: Services provided to patient in accordance with Admission requirements found in Title 42 Section 412.3 of the Code of Federal Regulations Patient History Date of Service: 11/22/17 Reason for admission: ABDOMEN PAIN AND DISTENSION. History of Present Illness: MS. DELACRUZ HAS BEEN TO THIS HOSPITAL THEN TO [place] FOR BOWEL OBSTRUCTION, THAT GOT BETTER, BUT SHE STAYED WEAK, WAS SENT TO [facility]. SHE HAD MEDICATIONS ERRORS THERE AND SHE GOT SR INSTAID OF DR RILEY , THEY FELT SHE HAD STROKE. SHE WAS SENT BACK TO [facility] AND LATER SENT BACK TO REHAB IN [facility]. SHE CAME BACK HOME ON MONDAY AND IS BACK AGAIN HERE IN 5 DAYS WITH BOWEL OBSTRUCTION. ON HER FIRST ADMISSION TO [facility] SHE DID NOT HAVE SURGERY SHE IMPROVED WITH NGT LIS AND ALSO SHE IS HIGH RISK WITH PULMONARY HTN. I CALLED DR. ROTHMAN AND HE HAS ACCPTED HER TO [facility] . THERE ARE NO BEDS YET. I ASKED IF HE CAN DO SURGERY UNDER HIGH SPINAL OR NERVE BLOCK SHE MOST LIKELY WILL NEED IT. Allergies codeine [Codeine] Allergy (Mild, Verified 02/22/12 09:06) Itching morphine Adverse Reaction (Severe, Verified 02/22/12 09:06) Decreased blood presure NSAIDS (Non-Steroidal Anti-Inflamma Adverse Reaction (Intermediate, Verified 27/06 20:23) kidney insufficiency Tape Allergy (Uncoded 09/15/17 11:58) Unknown Home Medications: Allopurinol 100 mg PO DAILY 09/15/17 Aspirin 81 mg PO DAILY 09/15/17 Cetirizine HCl [Zyrtec] 10 mg PO BEDTIME 09/15/17 Cholecalciferol (Vitamin D3) [Vitamin D 1000 Iu Tab] 1,000 unit PO DAILY Clonazepam [Klonopin] 0.5 mg PO BEDTIME 09/15/17 Divalproex Sodium [Depakote] 500 mg PO BID 09/15/17 Esomeprazole Mag Trihydrate [Nexium] 40 mg PO DAILY 09/15/17 Eszopiclone [Lunesta] 3 mg PO BEDTIME 09/15/17 Fenofibrate [Lipofen] 150 mg PO DAILY 09/15/17 Furosemide [Lasix] 20 mg PO DAILY 09/15/17 Icosapent Ethyl [Vascepa] 2 gm PO BID 09/15/17 Levothyroxine [Synthroid] 100 mcg PO DAILY 09/15/17 Nebivolol HCl [Bystolic] 5 mg PO DAILY 09/15/17 Olopatadine HCl [Patanase] 30.5 gm NS BID PRN 09/15/17 Rosuvastatin Calcium [Crestor] 40 mg PO DAILY 09/15/17 Tadalafil [Cialis] 20 mg PO BID 09/15/17 Verapamil HCl [Verapamil ER] 240 mg PO BEDTIME 09/15/17 - Past Medical/Surgical History Diabetic: No -: sleep apnea -: IBS/GERD -: Hypothyroid -: ANEMIA -: Pulmonary HTN -: back pain/ pinch nerves -: CKD -: HTN -: Hysterectomy -: Hernia repair -: Knee SX -: colon resection -: back Sx, Sciatica - Family History Mother -: Hypertension, Blood disorders - Social History Smoking Status: Never smoker Alcohol use: Yes CD- Drugs: No Caffeine use: Yes Place of Residence: Home Review of Systems 10-point ROS is otherwise unremarkable General: Weakness, Malaise Gastrointestinal: Distention, As per HPI Physical Examination - Vital Signs Temperature: 98 F Blood Pressure: 124/56 Pulse: 84 Respirations: 17 - Physical Exam General: Alert, Moderate distress, Obese HEENT: Atraumatic, PERRLA, Mucous membr. moist/pink, EOMI, Sclerae nonicteric Neck: Supple, 2+ carotid pulse no bruit, No LAD, Without JVD or thyroid abnormality Respiratory: Clear to auscultation bilaterally, Normal air movement Cardiovascular: Regular rate/rhythm, Normal S1 S2 Gastrointestinal: Other (LARGE UPPER ABDOMEN HERNIA.), Hyperactive, Distended, Tenderness Musculoskeletal: No tenderness Integumentary: No rashes Neurological: Normal gait, Normal speech, Normal strength at 5/5 x4 extr, Normal tone, Normal affect Lymphatics: No axilla or inguinal lymphadenopathy - Studies Laboratory Data (last 24 hrs) 11/22/17 09:12: Creatinine 2.70 H 11/22/17 09:12: WBC 6.7, Hgb 12.3, Hct 37.7, Plt Count 172 05/23/18 09:12: Sodium 146 H, Potassium 4.2, BUN 48 H, Creatinine 2.72 H, Glucose 114, Total Bilirubin 0.5, AST 24, ALT 14, Alkaline Phosphatase 46, Lipase 119 H Assessment and Plan - Problems (Diagnosis) (1) Small bowel obstruction due to adhesions Current Visit: Yes Status: Acute Plan: HIGH RISK FOR SURGERY IN HPI I TALKED TO DR ROTHMAN PROGNOSIS POOR IF WRITTEN PROPERLY, PATIENT MAY HAVE TO TAKE RISK OF SURGERY THERE DOES NOT SEEM TO BE ANY CHOICE. (2) Pulmonary HTN Current Visit: Yes Status: Chronic Plan: HAS BEEN TO MANY DOCTORS AND HAS BEEN ON MANY MEDICATIONS. PROGNOSIS IS POOR OVERALL (3) Acute on chronic renal failure Onset Date: 09/18/17 Current Visit: No Status: Acute Plan: ABOUT THE SAME ON CREATININE. WILL WATCH. - Advance Directives Does patient have a Living Will: Yes Does patient have a Durable POA for Healthcare: Yes
[2017-11-22] MEDS: ONDANSETRON 4 MG/2 ML VIAL IV PRN (18:52)
[2017-11-22] MEDS: MEPERIDINE HCL 25 MG/0.5 ML IV PRN (18:53)
--- NOTE | 2017-11-22 21:09 | P.CNS ---
Date of Consult: 11/22/17 PC: I was asked to see this 57-year-old female regards to her abdominal pain HPC: Patient apparently was at home recently had some Russian food. Shortly thereafter began experiencing hard cramping abdominal pain, mostly located on her right side. Associated with nausea and some vomiting. PMH: Hypertension, and pulmonary hypertension, morbid obesity, sleep apnea PSHx: Had a previous cecal volvulus with a bowel resection. Developed hernias afterward apparently had hernia surgery done. Was recently here in the hospital was transferred to [place] with another episode of small bowel obstruction similar to this episode in to her recurrent hernias. SOC: Allergic to codeine, morphine, nonsteroidals SYS REVIEW: Patient has been up in [place], back to a long-term care facility, and now back to our ER. She says it is difficult to evaluate how she really feels. However at the current time. She says she is having some cramping pain but is not as intense as it was last night. O/E awake alert minimal distress HEENT: Nasogastric tube in place Chest: Chest movement equal bilaterally ABD: Has a hernia right side of the abdomen, but no redness, guarding or rebound over this area LOCO: Intact DATA: High output from nasogastric tube, appears to be working well IMPRESSION: Patient partial small-bowel obstruction. As emphasized and documented by Dr. Villegas, who is her primary care physician, she is at high risk for surgery. Transfer to [place] has been arranged. She is awaiting a bed. Her situation will most likely require some surgical intervention with possible abdominal wall reconstruction. Hence her transfer to [place] in addition to her high risk from her medical issues. She does not require emergent surgery at the moment and we will await transfer. PLAN: Strongly agree with transfer to Dr. Guy surgical service.
[2017-11-23] MEDS: ONDANSETRON 4 MG/2 ML VIAL IV PRN ×3 (00:21→10:01)
[2017-11-23 00:31] VITALS: O2SAT 97
[2017-11-23] MEDS: METRONIDAZOLE 500mg IVPB 500 MG/100 ML BAG IV SCH ×2 (00:37→09:08)
[2017-11-23 05:52] LABS: Absolute Lymphocytes (CBC) 0.8 K/uL (0.7-4.9); Absolute Monocytes 0.7 K/uL (0.1-1.3); Absolute Neutrophil 3.4 K/uL (1.8-8.0); Basophils % 0.7 % (0-1.3); Eosinophils % 0.5 % (0-4.4); Hematocrit 36.6 % (36.0-45.0); Lymphocytes % 16.1 % (15.3-44.8); MCH 30.6 pg (27.0-35.0); MCV 93.4 fL (80-100); MPV 9.6 fL (7.6-11.3); Monocytes % 14.6 % (3.3-12.3); RBC Red Blood Cell Count 3.92 M/uL (3.86-4.86)
[2017-11-23 06:27] LABS: Albumin 3.1 g/dL (3.2-5.5); Bilirubin Direct 0.3 mg/dL (0-0.2); Bilirubin Total 0.8 mg/dL (0.3-1.2); Potassium 4.2 mEq/L (3.6-5.0); Protein, Total 6.7 g/dL (6.0-8.3)
[2017-11-23 07:11] LABS: Blood Morphology Comment NOT SEEN (NOT SEEN); Platelet Estimate ADEQ
[2017-11-23] MEDS: D5 0.45 NS 1,000 ML IV SCH (07:22)
[2017-11-23] MEDS ORDERED: CEFTRIAXONE/SWI 1gm 1 GM/10 ML SYR IVP SCH (09:00)
[2017-11-23] MEDS: MEPERIDINE HCL 25 MG/0.5 ML IV PRN (09:12)
[2017-11-23 09:38] VITALS: BP 109/52; TEMP 97.9
--- NOTE | 2017-11-23 18:09 | P.DS ---
Admission Date: 11/22/17 Discharge Date: 11/23/17 Disposition: TRANSFER TO [facility] Reason for Admission: ABDOMEN PAIN AND DISTENSION. - Problems (1) Small bowel obstruction due to adhesions Onset Date: 11/23/17 Status: Acute (2) Pulmonary HTN Onset Date: 11/23/17 Status: Chronic (3) Acute on chronic renal failure Onset Date: 09/18/17 Status: Acute Brief History of Present Illness: MS. DELACRUZ HAS BEEN TO THIS HOSPITAL THEN TO [facility] FOR BOWEL OBSTRUCTION, THAT GOT BETTER, BUT SHE STAYED WEAK, WAS SENT TO [facility]. SHE HAD MEDICATIONS ERRORS THERE AND SHE GOT SR INSTAID OF DR RILEY , THEY FELT SHE HAD STROKE. SHE WAS SENT BACK TO [facility] AND LATER SENT BACK TO REHAB IN [facility]. SHE CAME BACK HOME ON MONDAY AND IS BACK AGAIN HERE IN 5 DAYS WITH BOWEL OBSTRUCTION. ON HER FIRST ADMISSION TO [facility] SHE DID NOT HAVE SURGERY SHE IMPROVED WITH NGT LIS AND ALSO SHE IS HIGH RISK WITH PULMONARY HTN. I CALLED DR. ROTHMAN AND HE HAS ACCPTED HER TO [facility] . THERE ARE NO BEDS YET. I ASKED IF HE CAN DO SURGERY UNDER HIGH SPINAL OR NERVE BLOCK SHE MOST LIKELY WILL NEED IT. DR. ROTHMAN HAS TAKEN PATIENT TO [facility] ABOVE. Vital Signs/Physical Exam: Temp Pulse Resp BP Pulse Ox 97.9 F 85 18 109/52 L 98 11/23/17 08:00 11/23/17 08:00 11/23/17 08:00 11/23/17 08:00 11/23/17 08:00 Laboratory Data at Discharge: WBC 5.0 K/uL (4.3-10.9) D 11/23/17 05:23 Hgb 12.0 g/dL (12.0-15.0) 11/23/17 05:23 Hct 36.6 % (36.0-45.0) 11/23/17 05:23 Plt Count 188 K/uL (152-406) 11/23/17 05:23 Sodium 145 mEq/L (135-145) 11/23/17 05:23 Potassium 4.2 mEq/L (3.6-5.0) 11/23/17 05:23 BUN 64 mg/dL (6-20) H 11/23/17 05:23 Creatinine 3.87 mg/dL (0.44-1.00) H D 11/23/17 05:23 Glucose 120 mg/dL (65-120) 11/23/17 05:23 Total Bilirubin 0.8 mg/dL (0.3-1.2) 11/23/17 05:23 AST 33 IU/L (10-42) 11/23/17 05:23 ALT 9 IU/L (10-60) L 11/23/17 05:23 Alkaline Phosphatase 36 IU/L (42-121) L 11/23/17 05:23 Lipase 35 U/L (22-51) 11/23/17 05:23 Home Medications: Allopurinol 100 mg PO BEDTIME 09/15/17 Aspirin 81 mg PO DAILY 09/15/17 Cetirizine HCl [Zyrtec] 10 mg PO BEDTIME 09/15/17 Clonazepam [Klonopin] 0.5 mg PO BEDTIME 09/15/17 Divalproex Sodium [Depakote] 500 mg PO BID 09/15/17 Esomeprazole Mag Trihydrate [Nexium] 40 mg PO DAILY 09/15/17 Eszopiclone [Lunesta] 3 mg PO BEDTIME 09/15/17 Fenofibrate [Lipofen] 150 mg PO DAILY 09/15/17 Furosemide [Lasix] 20 mg PO DAILY 09/15/17 Icosapent Ethyl [Vascepa] 2 gm PO BID 09/15/17 Levothyroxine [Synthroid] 100 mcg PO DAILY 09/15/17 Nebivolol HCl [Bystolic] 5 mg PO BEDTIME 09/15/17 Rosuvastatin Calcium [Crestor] 40 mg PO BEDTIME 09/15/17 Verapamil HCl [Verapamil ER] 240 mg PO BEDTIME 09/15/17 Ascorbate Calcium [Vitamin C] 500 mg PO DAILY 11/22/17 Calcium Carbonate [Calcium] 600 mg PO DAILY 11/22/17 Cholecalciferol (Vitamin D3) [Vitamin D 1000 Iu Tab*] 2 tab PO DAILY 11/22/17 Eluxadoline [Viberzi] 100 mg PO DAILY 11/22/17 Ipratropium [Atrovent 0.03% (21MCG)/[place] Nasal] 2 sprays NS ACHS 11/22/17 Iron 65 mg PO DAILY 11/22/17 Methocarbamol [Robaxin] 750 mg PO TID 11/22/17 Multivitamin [Multiple Vitamins] 1 tab PO DAILY 11/22/17 Olopatadine HCl [Patanase] 2 sprays CORINNE BID 11/22/17 Rosuvastatin Calcium [Crestor] 40 mg PO BEDTIME 11/22/17 Tramadol HCl [Ultram] 50 mg PO Q6H PRN 11/22/17
== END 2017-11-23 10:30 | disposition short-term general hospital (02) | DRG 389 ==
LOC: ER 07:49 → ERHOLD 13:30 → 2ND 15:26
PROVIDERS: ADMIT Internal Medicine; ATTEND Internal Medicine
DX: K56.51 Intestinal adhesions [bands], with partial obstruction (principal); N17.9 Acute kidney failure, unspecified; Z68.41 Body mass index [BMI] 40.0-44.9, adult; I12.9 Hypertensive chronic kidney disease with stage 1 through stage 4 chronic kidney disease, or unspecified chronic kidney disease; N18.9 Chronic kidney disease, unspecified; I27.20 Pulmonary hypertension, unspecified; E03.9 Hypothyroidism, unspecified; E66.01 Morbid (severe) obesity due to excess calories
CPT/HCPCS: 36415; 71045; 74177; 80048; 80076; 81003; 81015; 83690; 84145; 84484; 85025; 87040; 87077; 87086; 87088; 87186; 87205; 93005; 96361; 96365; 96375; 99285; J0696; J2175; J2405; J2550; J7030; Q9967

== ENCOUNTER 2018-02-05 09:43 | Day surgery (SDC) | payer OTHER ==
--- OUTSIDE RECORDS SUMMARY | 2018-02-05 10:21 | XMS REPORT | Clinical Summary ---
:1960 Author Organization [facility] Address [address] [place] [address] Phone Care Team Providers Name Role Phone [...] INFLUENZA VACCINE 04/02/2018 Results Not on fileafter 02/04/2017
[2018-02-05] MEDS ORDERED: Ringers Lactate 1,000 ML IV ONE (10:31)
[2018-02-05] MEDS ORDERED: LIDOCAINE 1% MPF 5 ML VIAL ONE (12:21)
[2018-02-05] MEDS ORDERED: PROPOFOL 200 MG/20 ML VIAL IV ONE (12:21)
--- NOTE | 2018-02-05 12:41 | ENDO RPT ---
[address], [address] EGD PROCEDURE REPORT EXAM DATE: 02/05/2018 PATIENT NAME: Fannie Plunkett MR#: [id number] BIRTHDATE: 1960 ATTENDING: Baljit Ordonez Dr STATUS: outpatient IUSS ANALYST: Meghan Das and Josi Garland RN INDICATIONS: The patient is a 57 yr old Female here for an EGD due to follow-up of Groves's Esophagus PROCEDURE PERFORMED: EGD with biopsy MEDICATIONS: Per Anesthesia. TOPICAL ANESTHETIC: none CONSENT: The patient understands the risks and benefits of the procedure and understands that these risks include, but are not limited to: sedation, allergic reaction, infection, perforation and/or bleeding. Alternative means of evaluation and treatment include, among others: physical exam, x-rays, and/or surgical intervention. The patient elects to proceed with this endoscopic procedure. DESCRIPTION OF PROCEDURE: During intra-op preparation period all mechanical medical equipment was checked for proper function. Hand hygiene and appropriate measures for infection prevention was taken. Procedure, possible complications, and alternatives including but not limited to the possibility of bleeding, perforation, tear, infection, sepsis, need for surgery, need for blood transfusion, and anesthesia related complications were explained to the patient. After the risks, benefits and alternatives of the procedure were thoroughly explained, Informed consent was verified, confirmed and timeout was successfully executed by the treatment team. The patient was placed in the left lateral position. The patient was anesthetized with topical anesthesia. Through the anesthetized oropharyngeal area, the scope was passed without any difficulty. The EG-[id number] ([id number]) endoscope was introduced through the mouth and advanced to the second portion of the duodenum. Retroflexed views revealed no abnormalities. The gastroscope was then slowly withdrawn and removed. Groves's esophagus was found in the lower esophagus. Multiple biopsies were obtained and sent to pathology (limited due to excessive bleeding). LA Class A esophagitis was found in the lower esophagus. Duodenitis was found in the bulb of the duodenum with sharp turn twist of mucosa withslight stenosis. Multiple biopsies were obtained and sent to pathology. A 2 mm clean-based ulcer was found in the bulb of the duodenum. ADVERSE EVENTS: There were no complications. IMPRESSIONS: 1. Groves's esophagus in the lower esophagus,s/p biopsies (limited due to excessive bleeding) 2. LA Class A esophagitis in the lower esophagus 3. Duodenitis in the apex of the bulb of the duodenum with sharp turn twist of mucosa withslight stenosis 4. 2 mm clean-based ulcer in the apex of the bulb of the duodenum RECOMMENDATIONS: 1. await biopsy results 2. acid suppression therapy REPEAT EXAM: Baljit Ordonez Dr eSigned: Baljit Ordonez Dr 02/05/2018 12:40 PM cc: CPT CODES: ICD9 CODES: PATIENT NAME: Fannie Plunkett MR#: [id number]
[2018-02-05 13:50] VITALS: BP 129/52; TEMP 98; O2SAT 96
[2018-02-05 13:55] LABS: Absolute Lymphocytes (CBC) 1.1 K/uL (0.7-4.9); Absolute Monocytes 0.3 K/uL (0.1-1.3); Absolute Neutrophil 2.2 K/uL (1.8-8.0); Basophils % 0.3 % (0-1.3); Eosinophils % 1.9 % (0-4.4); Hematocrit 25.6 % (36.0-45.0); Lymphocytes % 29.8 % (15.3-44.8); MCH 32.1 pg (27.0-35.0); MCV 96.5 fL (80-100); MPV 7.9 fL (7.6-11.3); Monocytes % 8.8 % (3.3-12.3); RBC Red Blood Cell Count 2.65 M/uL (3.86-4.86)
[2018-02-05 13:57] LABS: Protime INR 1.08
[2018-02-05 14:07] LABS: Potassium 5.1 mmol/L (3.5-5.1)
== END 2018-02-05 13:38 | disposition home or self-care (01) ==
LOC: OR 09:43
PROVIDERS: ATTEND Internal Medicine Gastroenterology
PROC: 0DB38ZX Excision of Lower Esophagus, Via Natural or Artificial Opening Endoscopic, Diagnostic (ICD-10-PCS; 2018-02-05)
PROC: 0DB98ZX Excision of Duodenum, Via Natural or Artificial Opening Endoscopic, Diagnostic (ICD-10-PCS; principal; 2018-02-05 13:45)
DX: K22.70 Barrett's esophagus without dysplasia (principal); K21.0 Gastro-esophageal reflux disease with esophagitis; K22.8 Other specified diseases of esophagus; K29.80 Duodenitis without bleeding; K26.9 Duodenal ulcer, unspecified as acute or chronic, without hemorrhage or perforation; Z88.6 Allergy status to analgesic agent; Z88.5 Allergy status to narcotic agent; Z91.048 Other nonmedicinal substance allergy status; Z86.010 Personal history of colon polyps; I13.0 Hypertensive heart and chronic kidney disease with heart failure and stage 1 through stage 4 chronic kidney disease, or unspecified chronic kidney disease; I50.30 Unspecified diastolic (congestive) heart failure; N18.9 Chronic kidney disease, unspecified; E03.9 Hypothyroidism, unspecified; Z96.651 Presence of right artificial knee joint
CPT/HCPCS: 36415; 80048; 85025; 85610; 85730; 88305; 88312; 88313

== ENCOUNTER 2018-04-24 14:08 | Emergency (ER) | payer OTHER ==
--- OUTSIDE RECORDS SUMMARY | 2018-04-24 14:13 | XMS REPORT | Clinical Summary ---
:1960 Author Organization [facility] Address [address] [place] [address] Phone Care Team Providers Name Role Phone [...] INFLUENZA VACCINE 04/02/2018 Results Not on fileafter 04/23/2017
--- NOTE | 2018-04-24 14:57 | RAD REPORT ---
EXAM DESCRIPTION: CT - CTHCSPWOC - 04/24/2018 2:43 pm CLINICAL HISTORY: Trip and fall, head and neck injury COMPARISON: None. TECHNIQUE: Axial 5 mm thick images of the head were obtained. Axial 2 mm thick images of the cervic al spine were obtained with sagittal and coronal reconstruction images generated and reviewed. All CT scans are performed using dose optimization technique as appropriate and may include automated exposure control or mA/KV adjustment according to patient size. FINDINGS: No intracranial hemorrhage, mass, edema or acute intracranial finding. No suspicion for acute infarct ion. No extra-axial fluid collections. Mastoid air cells and paranasal sinuses are clear. No globe or orbit abnormality seen. Facial bone assessment is limited. There is a small left frontal scalp hemat tucker. No skull fracture. Cervical bodies are normal in height. No fracture or acute cervical spine finding. C3-4, C4-5, C5-6 a nd C6-7 significant disc and endplate degenerative change. There is a slight retrolisthesis of C4 on C5 and C5 on C6. Right bony foraminal encroachment at C3-4. There is advanced bony foraminal encroach ment on the right at C4-5 and moderate on the left. Significant right foraminal encroachment on the r ight at C5-6. Mild to moderate right foraminal encroachment at C6-7. Facet joint degenerative changes are present. No facet joint alignment abnormality. No fracture or acute bony abnormality. No paraspinal mass or hematoma. Central canal detail is inherently limited. IMPRESSION: No hemorrhage, edema or acute intracranial finding. Patient has a left frontal scalp hem atoma with no underlying fracture. Very advanced for age cervical spine degenerative change as detailed. No fracture or acute finding. C entral canal detail is inherently limited.
--- NOTE | 2018-04-24 15:00 | ER ---
Nurse's Notes [facility] Name: Fannie Plunkett Age: 57 yrs Sex: Female : 1960 Arrival Date: 04/24/2018 Time: 14:09 Bed 5 Private MD: Michael Villegas V Diagnosis: Fall on same level from slipping, tripping and stumbling;Superficial injury of head Presentation: 04/24 14:15 Presenting complaint: Patient states: I was getting out of the car and slipped, I hit la1 my forehead/face on the curb. Pt denies LOC, reports pain in face and forehead. hematoma noted to forehead. Pt denies use of blood thinners. Also C/O of pain in left knee. Transition of care: patient was not received from another setting of care. Onset of symptoms was April 24, 2018. Risk Assessment: Do you want to hurt yourself or someone else? Patient reports no desire to harm self or others. Initial Sepsis Screen: Does the patient meet any 2 criteria? No. Patient's initial sepsis screen is negative. Does the patient have a suspected source of infection? No. Patient's initial sepsis screen is negative. Care prior to arrival: None. 14:15 Method Of Arrival: Ambulatory la1 14:15 Acuity: MODESTA 3 la1 14:29 Mechanism of Injury: Fall from standing position. Trauma event details: Injury occurred aj1 in the [facility]. Trauma Activation: Not Applicable Physician: ED Physician; Name: ; Notified At: ; Arrived At: Physician: General Surgeon; Name: ; Notified At: ; Arrived At: Physician: Radiology; Name: ; Notified At: ; Arrived At: Physician: Respiratory; Name: ; Notified At: ; Arrived At: Physician: Lab; Name: ; Notified At: ; Arrived At: Historical: - Allergies: 14:17 Codeine; la1 14:17 Morphine; la1 14:17 NSAIDS; la1 14:17 Tape; la1 - PMHx: 14:17 Anemia; Depression; GERD; Hyperlipidemia; Hypothyroidism; ibs; PAH; Sleep Apnea; la1 - Immunization history:: Adult Immunizations up to date. - Social history:: Smoking status: Patient/guardian denies using tobacco. - Immunization history: Last tetanus immunization: - up to date. - Ebola Screening: : No symptoms or risks identified at this time. Screenin:29 Abuse screen: Denies threats or abuse. Denies injuries from another. Tuberculosis aj1 screening: No symptoms or risk factors identified. 14:36 Nutritional screening: No deficits noted. aj1 15:05 Fall Risk Fall in past 12 months (25 points). mg2 Primary Survey: 14:29 A: Airway:. Breathing/Chest: Respiratory pattern: regular, Respiratory effort: aj1 spontaneous, unlabored. Circulation: Skin color: pink. Disability Alert. 15:09 Reassessment Breathing/Chest Respiratory pattern Regular Respiratory effort Spontaneous mg2 Unlabored. Assessment: 14:29 General: Appears in no apparent distress. comfortable, Behavior is calm, cooperative, aj1 appropriate for age. Pain: Complains of pain in forehead and left knee Pain does not radiate. Neuro: Level of Consciousness is awake, alert, obeys commands, Oriented to person, place, time, situation, Speech is normal. EENT: No signs and/or symptoms were reported regarding the EENT system. Cardiovascular: No deficits noted. Denies syncope, Patient's skin is warm and dry. Respiratory: Airway is patent Respiratory effort is even, unlabored, Respiratory pattern is regular, symmetrical. GI: No signs and/or symptoms were reported involving the gastrointestinal system. Patient currently denies vomiting. : No signs and/or symptoms were reported regarding the genitourinary system. Derm: Skin is pink, warm \T\ dry. Musculoskeletal: Range of motion: intact in all extremities. Injury Description: Abrasion sustained to forehead and left cheek Bruise sustained to forehead and dorsal aspect of proximal phalanx of right thumb Hematoma noted to forehead. 14:36 Reassessment: Patient transported to CT via stretcher. aj1 Vital Signs: 14:17 BP 136 / 59; Pulse 74; Resp 16; Temp 98.4(O); Pulse Ox 98% on R/A; Weight 99.79 kg; la1 Height 5 ft. 4 in. (162.56 cm); Pain 5/10; 15:05 BP 125 / 72; Pulse 77; Resp 18; Pulse Ox 98% on 2 lpm NC; mg2 14:17 Body Mass Index 37.76 (99.79 kg, 162.56 cm) la1 Jennifer Coma Score: 14:29 Eye Response: spontaneous(4). Verbal Response: oriented(5). Motor Response: obeys aj1 commands(6). Total: 15. Trauma Score (Adult): 14:29 Eye Response: spontaneous(1); Verbal Response: oriented(1); Motor Response: obeys aj1 commands(2); Systolic BP: > 89 mm Hg(4); Respiratory Rate: 10 to 29 per min(4); Bethesda Score: 15; Trauma Score: 12 ED Course: 14:09 Patient arrived in ED. as 14:10 Michael Villegas MD is Private Physician. as 14:17 Triage completed. la1 14:17 [facility]C [facility]. kb 14:17 Enrico Flores MD is Attending Physician. kb 14:18 Arm band placed on right wrist. la1 14:22 Debbi Rivera, RN is Primary Nurse. aj1 14:29 Patient has correct armband on for positive identification. Oxygen administration via aj1 nasal cannula Patient wears home O2. 14:35 Oxygen administration via nasal cannula Patient wears home O2. aj1 14:36 Pulse ox on. NIBP on. aj1 14:36 No provider procedures requiring assistance completed. aj1 14:36 Thermoregulation: warm blanket given to patient. aj1 14:40 CT completed. Patient tolerated procedure well. Patient moved to CT via stretcher. Patient moved back from CT. 14:43 CT Head C Spine In Process Unspecified. EDMS 15:08 Patient did not have IV access during this emergency room visit. mg2 Administered Medications: No medications were administered Intake: 15:02 PO: 0ml; Total: 0ml. mg2 Outcome: 14:59 Discharge ordered by . kb 15:00 Patient's length of stay was not longer than 2 hours. mg2 15:09 Discharged to home ambulatory, with family. mg2 15:09 Condition: stable 15:09 Discharge instructions given to patient, family, Instructed on discharge instructions, follow up and referral plans. Demonstrated understanding of instructions, follow-up care. 15:10 Patient left the ED. iw Signatures: Dispatcher [employer] EDMS Ann Lewis FNP-C FNP-Ckb Johnson, Angela, RN RN aj1 Mary Rodrigez Amelia as Williams, Irene, RN RN iw Mendez Liang RN RN la1 Gardose, Manjit, RN RN mg2
--- NOTE | 2018-04-24 15:01 | EDPHYS ---
Physician Documentation [facility] Name: Fannie Plunkett Age: 57 yrs Sex: Female : 1960 Arrival Date: 04/24/2018 Time: 14:09 Bed 5 Private MD: Michael Villegas V ED Physician Enrico Flores HPI: 04/24 14:54 This 57 yrs old Female presents to ER via Ambulatory with complaints of Fall kb Injury. 14:54 Details of fall: The patient fell from an upright position, while walking. Onset: The kb symptoms/episode began/occurred just prior to arrival. Associated injuries: The patient sustained injury to the head, abrasion, hematoma, neck injury, pain, right hand, left hand and left knee, abrasion. Severity of symptoms: At their worst the symptoms were mild, moderate, in the emergency department the symptoms are unchanged. The patient has not experienced similar symptoms in the past. The patient has not recently seen a physician. Pt reports she slipped while trying to step up onto sidewalk. Hit forehead, face, scraped bilateral hands and left knee. . Historical: - Allergies: 14:17 Codeine; la1 14:17 Morphine; la1 14:17 NSAIDS; la1 14:17 Tape; la1 - PMHx: 14:17 Anemia; Depression; GERD; Hyperlipidemia; Hypothyroidism; ibs; PAH; Sleep Apnea; la1 - Immunization history:: Adult Immunizations up to date. - Social history:: Smoking status: Patient/guardian denies using tobacco. - Immunization history: Last tetanus immunization: - up to date. - Ebola Screening: : No symptoms or risks identified at this time. ROS: 14:54 Constitutional: Negative for fever, chills, and weight loss, Cardiovascular: Negative kb for chest pain, palpitations, and edema, Respiratory: Negative for shortness of breath, cough, wheezing, and pleuritic chest pain, Abdomen/GI: Negative for abdominal pain, nausea, vomiting, diarrhea, and constipation, Back: Negative for injury and pain, MS/Extremity: Negative for injury and deformity, Neuro: Negative for headache, weakness, numbness, tingling, and seizure. 14:54 Neck: Positive for pain with movement, pain at rest. 14:54 Skin: Positive for abrasion(s), of the face, right hand, left hand and left knee. Exam: 14:54 Constitutional: This is a well developed, well nourished patient who is awake, alert, kb and in no acute distress. Head/Face: Normocephalic, atraumatic. ENT: Nares patent. No nasal discharge, no septal abnormalities noted. Tympanic membranes are normal and external auditory canals are clear. Oropharynx with no redness, swelling, or masses, exudates, or evidence of obstruction, uvula midline. Mucous membranes moist. Neck: Trachea midline, no thyromegaly or masses palpated, and no cervical lymphadenopathy. Supple, full range of motion without nuchal rigidity, or vertebral point tenderness. No Meningismus. Chest/axilla: Normal chest wall appearance and motion. Nontender with no deformity. No lesions are appreciated. Cardiovascular: Regular rate and rhythm with a normal S1 and S2. No gallops, murmurs, or rubs. Normal PMI, no JVD. No pulse deficits. Respiratory: Lungs have equal breath sounds bilaterally, clear to auscultation and percussion. No rales, rhonchi or wheezes noted. No increased work of breathing, no retractions or nasal flaring. Abdomen/GI: Soft, non-tender, with normal bowel sounds. No distension or tympany. No guarding or rebound. No evidence of tenderness throughout. MS/ Extremity: Pulses equal, no cyanosis. Neurovascular intact. Full, normal range of motion. Neuro: Awake and alert, GCS 15, oriented to person, place, time, and situation. Cranial nerves II-XII grossly intact. Motor strength 5/5 in all extremities. Sensory grossly intact. Cerebellar exam normal. Normal gait. 14:54 Skin: injury, abrasion(s), moderate sized abrasion noted, of the forehead, left cheek, right hand, left hand and left knee. Vital Signs: 14:17 BP 136 / 59; Pulse 74; Resp 16; Temp 98.4(O); Pulse Ox 98% on R/A; Weight 99.79 kg; la1 Height 5 ft. 4 in. (162.56 cm); Pain 5/10; 15:05 BP 125 / 72; Pulse 77; Resp 18; Pulse Ox 98% on 2 lpm NC; mg2 14:17 Body Mass Index 37.76 (99.79 kg, 162.56 cm) la1 Jennifer Coma Score: 14:29 Eye Response: spontaneous(4). Verbal Response: oriented(5). Motor Response: obeys aj1 commands(6). Total: 15. Trauma Score (Adult): 14:29 Eye Response: spontaneous(1); Verbal Response: oriented(1); Motor Response: obeys aj1 commands(2); Systolic BP: > 89 mm Hg(4); Respiratory Rate: 10 to 29 per min(4); Jennifer Score: 15; Trauma Score: 12 MDM: 14:22 Patient medically screened. kb 14:57 Data reviewed: vital signs, nurses notes. Data interpreted: Pulse oximetry: on room air kb is 98 %. Interpretation: normal. 14:58 Counseling: I had a detailed discussion with the patient and/or guardian regarding: the kb historical points, exam findings, and any diagnostic results supporting the discharge/admit diagnosis, radiology results, the need for outpatient follow up, a family practitioner, to return to the emergency department if symptoms worsen or persist or if there are any questions or concerns that arise at home. 04/24 14:26 Order name: CT Head C Spine; Complete Time: 14:58 kb Administered Medications: No medications were administered Disposition: 18:42 Co-signature as Attending Physician, Enrico Flores MD available for consultation at ps1 all times. Chart complete. Chart complete. Disposition: 04/24/18 14:59 Discharged to Home. Impression: Fall on same level from slipping, tripping and stumbling, Superficial injury of head. - Condition is Stable. - Discharge Instructions: Head Injury, Adult, [id number]. - Medication Reconciliation Form, Thank You Letter, Antibiotic Education, Prescription Opioid Use form. - Follow up: Private Physician; When: 2 - 3 days; Reason: Recheck today's complaints, Continuance of care, Re-evaluation by your physician. Follow up: Emergency Department; When: As needed; Reason: Worsening of condition. Signatures: Dispatcher [employer] Ann Boone, LILIBETH LINP-Debbi Gaitan RN RN aj1 Mya Ceballos RN RN iw Mendez Liang RN RN la1 Enrico Flores MD MD ps1 Corrections: (The following items were deleted from the chart) 15:10 14:59 04/24/2018 14:59 Discharged to Home. Impression: Fall on same level from iw slipping, tripping and stumbling; Superficial injury of head. Condition is Stable. Forms are Medication Reconciliation Form, Thank You Letter, Antibiotic Education, Prescription Opioid Use. Follow up: Private Physician; When: 2 - 3 days; Reason: Recheck today's complaints, Continuance of care, Re-evaluation by your physician. Follow up: Emergency Department; When: As needed; Reason: Worsening of condition. kb
[2018-04-24 15:16] VITALS: BP 136/59; TEMP 98.4; O2SAT 98
== END 2018-04-24 15:10 | disposition home or self-care (01) ==
LOC: ER 14:08
DX: S00.90XA Unspecified superficial injury of unspecified part of head, initial encounter (principal); W01.0XXA Fall on same level from slipping, tripping and stumbling without subsequent striking against object, initial encounter; Y93.01 Activity, walking, marching and hiking; Y92.480 Sidewalk as the place of occurrence of the external cause; Z88.5 Allergy status to narcotic agent; Z88.6 Allergy status to analgesic agent; Z91.048 Other nonmedicinal substance allergy status
CPT/HCPCS: 70450; 72125; 99284

== ENCOUNTER 2018-08-31 17:48 | Emergency (ER) | payer OTHER ==
--- OUTSIDE RECORDS SUMMARY | 2018-08-31 17:51 | XMS REPORT | Clinical Summary ---
:1960 Author Organization [facility] Address [address] [place] [address] Care Team Providers Name Role Phone Michael Villegas Primary Care Provider Allergies Not on File Medications Not on file Active Problems Not on file Social History Tobacco Use Types Packs/Day Years Used Date Never Assessed Sex Assigned at Date Recorded Not on file Job Start Date Occupation Industry Not on file Not on file Not on file Travel History Travel Start Travel End No recent travel history available. Last Filed Vital Signs Not on file Plan of Treatment Health Maintenance Due Date Last Done Comments INFLUENZA VACCINE 04/02/2018 Results Not on fileafter 08/30/2017 Insurance Payer Benefit Plan / Group Subscriber ID Type Phone Address [employer] - [employer] HMO POS QPOS xxxxxxxxx HMO/POS
--- NOTE | 2018-08-31 19:35 | RAD REPORT ---
EXAM DESCRIPTION: RAD - Hip Right 2 View - 08/31/2018 7:26 pm CLINICAL HISTORY: LOWER BACK PAIN Right hip pain COMPARISON: No comparisons FINDINGS: Mild arthritic changes affect the right hip. No fracture, dislocation or AVN.
--- NOTE | 2018-08-31 19:37 | RAD REPORT ---
EXAM DESCRIPTION: RAD - Lumbar Spine 3 Views - 08/31/2018 7:29 pm CLINICAL HISTORY: LOWER BACK PAIN Radiculopathy COMPARISON: Lumbar Spine 3 Views dated 05/31/2018; MYELOGRAPHY LUMBAR dated 06/02/2011 FINDINGS: Degenerative dextroscoliosis of the lumbar spine is present. Multilevel disc thinning with posterior osteophytes and bridging syndesmophytes noted. An acute fracture is not seen. IVC filter i s present.
--- NOTE | 2018-08-31 19:58 | ER ---
Nurse's Notes [facility] Name: Fannie Plunkett Age: 58 yrs Sex: Female : 1960 Arrival Date: 08/31/2018 Time: 17:50 Bed 25 Private MD: Michael Villegas V Diagnosis: Otitis media, unspecified Presentation: 08/31 17:53 Presenting complaint: Patient states: my head has been hurting for 3-4 days now, been hj congested and both my ears are hurting too; took tylenol and decongestant PLUMBER ASSISTANT: pt reports R hip pain from a fall last year;. Transition of care: patient was not received from another setting of care. Onset of symptoms was August 31, 2018. Risk Assessment: Do you want to hurt yourself or someone else? Patient reports no desire to harm self or others. Initial Sepsis Screen: Does the patient meet any 2 criteria? No. Patient's initial sepsis screen is negative. Does the patient have a suspected source of infection? No. Patient's initial sepsis screen is negative. Care prior to arrival: None. 17:53 Method Of Arrival: Ambulatory 17:53 Acuity: MODESTA 4 hj Triage Assessment: 17:59 General: Appears in no apparent distress. uncomfortable, Behavior is calm, cooperative, hj appropriate for age. Pain: Complains of pain in R hip. 17:59 EENT: Reports pain. hj Historical: - Allergies: 17:59 Codeine; 17:59 Morphine; 17:59 NSAIDS; 17:59 Tape; hj - Home Meds: 17:59 Depakote 500 mg Oral TbEC 1 tab 2 times per day [Active]; Nexium 40 mg Oral cpDR 1 cap hj 2 times per day [Active]; Lasix 20 mg Oral tab 1 tab as needed [Active]; Lunesta 3 mg oral tab 1 tab once daily [Active]; Klonopin 0.5 mg Oral tab 1 tab 3 times per day [Active]; Robaxin 750 mg Oral tab 2 tabs as needed [Active]; Bystolic 20 mg oral tab 1 tab once daily [Active]; aspirin 81 mg Oral TbEC 1 tab once daily [Active]; levothyroxine 100 mcg tab 1 tab once daily [Active]; Crestor 40 mg oral tab 1 tab once daily [Active]; Vascepa 1 gram oral cap 2 caps 2 times per day [Active]; - PMHx: 17:59 Anemia; Depression; GERD; Hypothyroidism; Hyperlipidemia; ibs; PAH; Sleep Apnea; hj - PSHx: 17:59 fistula on R arm; hj - Immunization history:: Adult Immunizations up to date. - Social history:: Smoking status: Patient/guardian denies using tobacco. - Ebola Screening: : Patient negative for fever greater than or equal to 101.5 degrees Fahrenheit, and additional compatible Ebola Virus Disease symptoms Patient denies exposure to infectious person Patient denies travel to an Ebola-affected area in the 21 days before illness onset. Screenin:59 Abuse screen: Denies threats or abuse. Denies injuries from another. Nutritional hj screening: No deficits noted. Tuberculosis screening: No symptoms or risk factors identified. Fall Risk None identified. Assessment: 18:49 General: Appears uncomfortable, obese, well groomed, well developed, well nourished, tl3 Behavior is calm, cooperative, appropriate for age. Pain: Complains of pain in right ear and left ear, hip and back pain. Neuro: Level of Consciousness is awake, alert, obeys commands, Oriented to person, place, time, situation, Appropriate for age. Cardiovascular: Patient's skin is warm and dry. Respiratory: Airway is patent Respiratory effort is even, unlabored, Respiratory pattern is regular, symmetrical. GI: No signs and/or symptoms were reported involving the gastrointestinal system. : No signs and/or symptoms were reported regarding the genitourinary system. EENT: Reports pain in left ear and right ear. Derm: No signs and/or symptoms reported regarding the dermatologic system. Musculoskeletal: No signs and/or symptoms reported regarding the musculoskeletal system. 19:45 Reassessment: Patient appears in no apparent distress at this time. No changes from tl3 previously documented assessment. Patient and/or family updated on plan of care and expected duration. Pain level reassessed. Patient is alert, oriented x 3, equal unlabored respirations, skin warm/dry/pink. awaiting radiology reports. 20:13 Reassessment: Patient appears in no apparent distress at this time. No changes from tl3 previously documented assessment. Patient and/or family updated on plan of care and expected duration. Pain level reassessed. Patient is alert, oriented x 3, equal unlabored respirations, skin warm/dry/pink. pt being discharged. Vital Signs: 18:00 BP 100 / 44; Pulse 79; Resp 18; Temp 98.0(O); Pulse Ox 96% on R/A; Weight 102.06 kg; hj Height 5 ft. 4 in. (162.56 cm); Pain 10/10; 20:13 BP 109 / 60; Pulse 79; Resp 18; Pulse Ox 100% 2 lpm ; tl3 18:00 Body Mass Index 38.62 (102.06 kg, 162.56 cm) ED Course: 17:50 Patient arrived in ED. mr 17:51 Michael Villegas MD is Private Physician. mr 17:55 Triage completed. hj 17:59 Arm band placed on right wrist. hj 18:00 Patient has correct armband on for positive identification. Bed in low position. Call light in reach. Side rails up X 1. Adult w/ patient. 18:21 Luann Houser FNP is [facility] [place] 18:21 Sathish Smith MD is Attending Physician. [place] 18:44 Qian Mendoza, MARC is Primary Nurse. tl3 19:26 X-ray completed. Patient tolerated procedure poorly. Patient moved to radiology via 1 wheelchair. Patient moved back from radiology. 19:26 Hip Right 2 View XRAY In Process Unspecified. EDMS 19:27 Lumbar Spine (3 Views) XRAY In Process Unspecified. EDMS 20:13 No provider procedures requiring assistance completed. Patient did not have IV access tl3 during this emergency room visit. Administered Medications: No medications were administered Outcome: 19:57 Discharge ordered by . [place] 20:13 Discharged to home via wheelchair. tl3 20:13 Condition: stable 20:13 Discharge instructions given to patient, family, Instructed on discharge instructions, follow up and referral plans. medication usage, Demonstrated understanding of instructions, follow-up care, medications, Prescriptions given X 2. 20:15 Patient left the ED. tl3 Signatures: Dispatcher [employer] EDMS Luann Houser FNP [facility] Jasmin Mckeon [facility] Be Puentes RN RN Qian Mendoza, MARC RN tl3 Corrections: (The following items were deleted from the chart) 18:02 17:53 Presenting complaint: Patient states: my head has been hurting for 3-4 days now, hj been congested and both my ears are hurting too; took tylenol and decongestant PLUMBER ASSISTANT: 18: 17:53 Presenting complaint: Patient states: my head has been hurting for 3-4 days now, hj been congested and both my ears are hurting too; took tylenol and decongestant PLUMBER ASSISTANT: pt reports R hip pain from a fall last year; : 18:00 Pulse 79bpm; Resp 18bpm; Pulse Ox 96% RA; Temp 98.0F Oral; 102.06 kg; Height 5 hj ft. 4 in.; BMI: 38.6; Pain 04/11; hj
--- NOTE | 2018-08-31 19:58 | EDPHYS ---
Physician Documentation [facility] Name: Fannie Plunkett Age: 58 yrs Sex: Female : 1960 Arrival Date: 08/31/2018 Time: 17:50 Bed 25 Private MD: Michael Villegas V ED Physician Sathish Smith HPI: 08/31 19:55 This 58 yrs old Female presents to ER via Ambulatory with complaints of Ear nh Pain, Headache, Hip Pain. 19:55 The patient presents with an injury, pain, swelling. The complaints affect the left ear nh and right ear. Onset: The symptoms/episode began/occurred gradually, 3 day(s) ago. Modifying factors: The symptoms are alleviated by nothing, the symptoms are aggravated by nothing. Associated signs and symptoms: Pertinent positives: sinus trouble. Severity of symptoms: At their worst the symptoms were moderate just prior to arrival, in the emergency department the symptoms are unchanged. The patient has not experienced similar symptoms in the past. The patient has not recently seen a physician. Historical: - Allergies: 17:59 Codeine; hj 17:59 Morphine; hj 17:59 NSAIDS; hj 17:59 Tape; hj - Home Meds: 17:59 Depakote 500 mg Oral TbEC 1 tab 2 times per day [Active]; Nexium 40 mg Oral cpDR 1 cap hj 2 times per day [Active]; Lasix 20 mg Oral tab 1 tab as needed [Active]; Lunesta 3 mg oral tab 1 tab once daily [Active]; Klonopin 0.5 mg Oral tab 1 tab 3 times per day [Active]; Robaxin 750 mg Oral tab 2 tabs as needed [Active]; Bystolic 20 mg oral tab 1 tab once daily [Active]; aspirin 81 mg Oral TbEC 1 tab once daily [Active]; levothyroxine 100 mcg tab 1 tab once daily [Active]; Crestor 40 mg oral tab 1 tab once daily [Active]; Vascepa 1 gram oral cap 2 caps 2 times per day [Active]; - PMHx: 17:59 Anemia; Depression; GERD; Hypothyroidism; Hyperlipidemia; ibs; PAH; Sleep Apnea; hj - PSHx: 17:59 fistula on R arm; hj - Immunization history:: Adult Immunizations up to date. - Social history:: Smoking status: Patient/guardian denies using tobacco. - Ebola Screening: : Patient negative for fever greater than or equal to 101.5 degrees Fahrenheit, and additional compatible Ebola Virus Disease symptoms Patient denies exposure to infectious person Patient denies travel to an Ebola-affected area in the 21 days before illness onset. ROS: 19:55 Constitutional: Negative for fever, chills, and weight loss, Eyes: Negative for injury, nh pain, redness, and discharge, Neck: Negative for injury, pain, and swelling, Cardiovascular: Negative for chest pain, palpitations, and edema, Respiratory: Negative for shortness of breath, cough, wheezing, and pleuritic chest pain, Abdomen/GI: Negative for abdominal pain, nausea, vomiting, diarrhea, and constipation, Back: Negative for injury and pain, : Negative for injury, bleeding, discharge, and swelling, Skin: Negative for injury, rash, and discoloration, Neuro: Negative for headache, weakness, numbness, tingling, and seizure, Psych: Negative for depression, anxiety, suicide ideation, homicidal ideation, and hallucinations, Allergy/Immunology: Negative for hives, rash, and allergies, Endocrine: Negative for neck swelling, polydipsia, polyuria, polyphagia, and marked weight changes, Hematologic/Lymphatic: Negative for swollen nodes, abnormal bleeding, and unusual bruising. 19:55 ENT: Positive for ear pain, sinus congestion. 19:55 MS/extremity: Positive for pain. Exam: 19:55 Constitutional: This is a well developed, well nourished patient who is awake, alert, nh and in no acute distress. Head/Face: Normocephalic, atraumatic. Eyes: Pupils equal round and reactive to light, extra-ocular motions intact. Lids and lashes normal. Conjunctiva and sclera are non-icteric and not injected. Cornea within normal limits. Periorbital areas with no swelling, redness, or edema. Neck: Trachea midline, no thyromegaly or masses palpated, and no cervical lymphadenopathy. Supple, full range of motion without nuchal rigidity, or vertebral point tenderness. No Meningismus. Chest/axilla: Normal chest wall appearance and motion. Nontender with no deformity. No lesions are appreciated. Cardiovascular: Regular rate and rhythm with a normal S1 and S2. No gallops, murmurs, or rubs. Normal PMI, no JVD. No pulse deficits. Respiratory: Lungs have equal breath sounds bilaterally, clear to auscultation and percussion. No rales, rhonchi or wheezes noted. No increased work of breathing, no retractions or nasal flaring. Abdomen/GI: Soft, non-tender, with normal bowel sounds. No distension or tympany. No guarding or rebound. No evidence of tenderness throughout. Back: No spinal tenderness. No costovertebral tenderness. Full range of motion. Skin: Warm, dry with normal turgor. Normal color with no rashes, no lesions, and no evidence of cellulitis. MS/ Extremity: Pulses equal, no cyanosis. Neurovascular intact. Full, normal range of motion. Neuro: Awake and alert, GCS 15, oriented to person, place, time, and situation. Cranial nerves II-XII grossly intact. Motor strength 5/5 in all extremities. Sensory grossly intact. Cerebellar exam normal. Normal gait. Psych: Awake, alert, with orientation to person, place and time. Behavior, mood, and affect are within normal limits. 19:55 ENT: External ear(s): are unremarkable, Ear canal(s): are normal, TM's: erythema, that is moderate, Nose: is normal, Mouth: is normal, Posterior pharynx: is normal, Dental exam: normal. Vital Signs: 18:00 BP 100 / 44; Pulse 79; Resp 18; Temp 98.0(O); Pulse Ox 96% on R/A; Weight 102.06 kg; hj Height 5 ft. 4 in. (162.56 cm); Pain 10/10; 20:13 BP 109 / 60; Pulse 79; Resp 18; Pulse Ox 100% 2 lpm ; tl3 18:00 Body Mass Index 38.62 (102.06 kg, 162.56 cm) hj MDM: 18:21 Patient medically screened. nh 19:55 Data reviewed: vital signs, nurses notes, lab test result(s), radiologic studies, and nh as a result, I will discharge patient. Counseling: I had a detailed discussion with the patient and/or guardian regarding: the historical points, exam findings, and any diagnostic results supporting the discharge/admit diagnosis, the need for outpatient follow up, to return to the emergency department if symptoms worsen or persist or if there are any questions or concerns that arise at home. 08/31 18:40 Order name: Flu; Complete Time: 19:33 de 08/31 18:40 Order name: Hip Right 2 View XRAY; Complete Time: 19:54 de 08/31 18:40 Order name: Lumbar Spine (3 Views) XRAY; Complete Time: 19:54 de Administered Medications: No medications were administered Disposition: 08/31/18 19:57 Discharged to Home. Impression: Otitis media, unspecified. - Condition is Stable. - Discharge Instructions: Otitis Media, Adult, Hip Pain. - Prescriptions for Tramadol 50 mg Oral Tablet - take 1 tablet by ORAL route every 8 hours as needed; 30 tablet. Zithromax Z- Chito 250 mg Oral Tablet - take 1 tablet by ORAL route as directed for 5 days Day 1 - take two (2) tablets one time. Day 2, 3, 4 , 5 take one (1) tablet once daily.; 6 tablet. - Medication Reconciliation Form, Thank You Letter, Antibiotic Education, Prescription Opioid Use form. - Follow up: Private Physician; When: 2 - 3 days; Reason: Recheck today's complaints. - Problem is new. - Symptoms are unchanged. Addendum: 09/05/2018 11:33 Co-signature as Attending Physician, Sathish Smith MD I agree with the assessment and k dr plan of care. Signatures: Dispatcher [employer] EDMA Sathish Smith MD MD [facility] Luann Houser, SUPERVISOR [employer] SUPERVISOR [employer] de Be Puentes, RN RN Qian Mendoza RN RN tl3 Corrections: (The following items were deleted from the chart) 08/31 20:15 19:57 08/31/2018 19:57 Discharged to Home. Impression: Otitis media, unspecified. tl3 Condition is Stable. Forms are Medication Reconciliation Form, Thank You Letter, Antibiotic Education, Prescription Opioid Use. Follow up: Private Physician; When: 2 - 3 days; Reason: Recheck today's complaints. Problem is new. Symptoms are unchanged. de
[2018-08-31 20:21] VITALS: TEMP 98
[2018-08-31 20:22] VITALS: BP 109/60; O2SAT 100
== END 2018-08-31 20:15 | disposition home or self-care (01) ==
LOC: ER 17:48
DX: H66.93 Otitis media, unspecified, bilateral (principal); E03.9 Hypothyroidism, unspecified; F32.9 Major depressive disorder, single episode, unspecified; Z79.82 Long term (current) use of aspirin; Z88.5 Allergy status to narcotic agent; Z88.6 Allergy status to analgesic agent; Z91.048 Other nonmedicinal substance allergy status
CPT/HCPCS: 72100; 87804; 99283

== ENCOUNTER 2018-09-02 20:57 | Inpatient (IN) | payer OTHER ==
--- OUTSIDE RECORDS SUMMARY | 2018-09-02 20:59 | XMS REPORT | Clinical Summary ---
:1960 Author Organization [facility] Address [address] [place] [address] Care Team Providers Name Role Phone Michael [...] INFLUENZA VACCINE 04/02/2018 Results Not on fileafter 09/01/2017 Insurance Payer Benefit Plan / Group Subscriber ID Type Phone Address [employer] - [employer] HMO POS QPOS xxxxxxxxx HMO/POS
[2018-09-02 21:45] LABS: Urine Blood NEGATIVE (NEG); Urine Glucose NEGATIVE (NEG); Urine Protein TRACE (NEG)
[2018-09-02 22:36] LABS: Protime INR 1.1
[2018-09-02 22:37] LABS: Absolute Lymphocytes (CBC) 0.7 K/uL (0.7-4.9); Absolute Monocytes 0.6 K/uL (0.1-1.3); Absolute Neutrophil 4.2 K/uL (1.8-8.0); Basophils % 0.3 % (0-1.3); Eosinophils % 1.6 % (0-4.4); Lymphocytes % 13.1 % (15.3-44.8); MPV 7.6 fL (7.6-11.3); Monocytes % 11.2 % (3.3-12.3); RBC Red Blood Cell Count 2.12 M/uL (3.86-4.86)
[2018-09-02] MEDS ORDERED: FAMOTIDINE 20 MG/2 ML VIAL IV ONE (22:45)
[2018-09-02] MEDS ORDERED: NA CHLORIDE 0.9% 1,000 ML ONE (22:46)
[2018-09-02 22:48] LABS: Hematocrit 20.6 % (36.0-45.0)
[2018-09-02 22:58] LABS: ALT/SGPT 9 U/L (12-78); AST/SGOT 13 U/L (15-37); Albumin 2.8 g/dL (3.4-5.0); Alkaline Phosphatase 75 U/L (45-117); BUN Blood Urea Nitrogen 58 mg/dL (7-18); Bicarbonate 32 mmol/L (21-32); Bilirubin Direct 0.1 mg/dL (0-0.2); Bilirubin Total 0.3 mg/dL (0.2-1.0); Glucose Level 95 mg/dL (74-106); Lipase 259 U/L (73-393); Magnesium 2.2 mg/dL (1.8-2.4); NT PRO-BNP 8566 pg/mL (<125); Potassium 4.8 mmol/L (3.5-5.1); Protein, Total 6.1 g/dL (6.4-8.2); Sodium Level 146 mmol/L (136-145); Troponin (Emerg Dept Use Only) < 0.02 ng/mL (0.0-0.045)
--- NOTE | 2018-09-02 23:58 | EDPHYS ---
Physician Documentation [facility] Name: Fannie Plunkett Age: 58 yrs Sex: Female : 1960 Arrival Date: 09/02/2018 Time: 21:06 Bed 2 Private MD: ED Physician Joe Figueroa HPI: 09/02 22:19 This 58 yrs old Female presents to ER via EMS with complaints of Altered essie Mental Status. 22:19 The patient presents with weakness. Onset: The symptoms/episode began/occurred 3 day(s) essie ago. Possible causes: unknown. Associated signs and symptoms: Pertinent positives: headache, nausea. Current symptoms: In the emergency department the patient's symptoms are unchanged from the initial presentation, despite home interventions. Patient's baseline: Neuro: alert and fully oriented, Motor: no deficits, Ambulation: walks with assist only, Speech: normal. The patient has not experienced similar symptoms in the past. Historical: - Allergies: 21:48 Morphine; aa1 21:48 Codeine; aa1 21:48 NSAIDS; aa1 21:48 Tape; aa1 - Home Meds: 21:48 Depakote 500 mg Oral TbEC 1 tab (1 tab in am \T\ 2 tabs in pm) [Active]; Nexium 40 mg aa1 Oral cpDR 1 cap once daily [Active]; Lasix 20 mg Oral tab 1 tab as needed [Active]; Lunesta 3 mg Oral tab 1 tab once daily [Active]; Klonopin 0.5 mg Oral tab 1 tab nightly [Active]; Robaxin 750 mg Oral tab 2 tabs as needed [Active]; Bystolic 20 mg Oral tab 1 tab once daily [Active]; aspirin 81 mg Oral TbEC 1 tab once daily [Active]; Vitamin C 500 mg Oral tab 500 mg daily [Active]; levothyroxine 100 mcg tab 1 tab once daily [Active]; Crestor 40 mg Oral tab 1 tab nightly [Active]; Vascepa 1 gram Oral cap 2 caps 2 times per day [Active]; Patanase 0.6 % nasal spry 2 sprays 2 times per day [Active]; Atrovent 0.06 % Nasal spry 2 sprays 3 times per day [Active]; Zyrtec 10 mg Oral tab 1 tab once daily [Active]; Adcirca 20 mg oral tab 2 tabs nightly [Active]; Detrol LA 4 mg Oral cp24 1 cap nightly [Active]; calcium carbonate 600 mg (1,500 mg) Oral tab 2 tab daily [Active]; allopurinol 100 mg Oral tab 1 tab nightly [Active]; Vitamin D3 2,000 unit oral tab daily [Active]; tramadol 50 mg Oral tab as needed [Active]; Restasis 0.05 % ophthalmic dpet 1 drop 2 times per day [Active]; - PMHx: 21:48 Anemia; Depression; GERD; Hyperlipidemia; Hypothyroidism; ibs; PAH; Sleep Apnea; Renal aa1 Disease; Lymphedema; Bowel Obstruction; Hypertension; Arthritis; - PSHx: 21:48 fistula on R arm; Hysterectomy; IVC filter; Joint replacement; Hernia repair; aa1 - Immunization history:: Pneumococcal vaccine is up to date, Flu vaccine is up to date. - Social history:: Smoking status: Patient/guardian denies using tobacco. - Ebola Screening: : No symptoms or risks identified at this time. - Family history:: not pertinent. ROS: 22:19 Constitutional: Negative for fever, chills, and weight loss, Eyes: Negative for injury, essie pain, redness, and discharge, ENT: Negative for injury, pain, and discharge, Neck: Negative for injury, pain, and swelling, Cardiovascular: Negative for chest pain, palpitations, and edema, Respiratory: Negative for shortness of breath, cough, wheezing, and pleuritic chest pain, Abdomen/GI: Negative for abdominal pain, nausea, vomiting, diarrhea, and constipation, Back: Negative for injury and pain, : Negative for injury, bleeding, discharge, and swelling, MS/Extremity: Negative for injury and deformity, Skin: Negative for injury, rash, and discoloration, Psych: Negative for depression, anxiety, suicide ideation, homicidal ideation, and hallucinations, Allergy/Immunology: Negative for hives, rash, and allergies, Endocrine: Negative for neck swelling, polydipsia, polyuria, polyphagia, and marked weight changes, Hematologic/Lymphatic: Negative for swollen nodes, abnormal bleeding, and unusual bruising. 22:19 Neuro: Positive for headache, weakness. Exam: 22:19 Constitutional: This is a well developed, well nourished patient who is awake, alert, essie and in no acute distress. Head/Face: Normocephalic, atraumatic. Eyes: Pupils equal round and reactive to light, extra-ocular motions intact. Lids and lashes normal. Conjunctiva and sclera are non-icteric and not injected. Cornea within normal limits. Periorbital areas with no swelling, redness, or edema. ENT: Nares patent. No nasal discharge, no septal abnormalities noted. Tympanic membranes are normal and external auditory canals are clear. Oropharynx with no redness, swelling, or masses, exudates, or evidence of obstruction, uvula midline. Mucous membranes moist. Neck: Trachea midline, no thyromegaly or masses palpated, and no cervical lymphadenopathy. Supple, full range of motion without nuchal rigidity, or vertebral point tenderness. No Meningismus. Chest/axilla: Normal chest wall appearance and motion. Nontender with no deformity. No lesions are appreciated. Cardiovascular: Regular rate and rhythm with a normal S1 and S2. No gallops, murmurs, or rubs. Normal PMI, no JVD. No pulse deficits. Respiratory: Lungs have equal breath sounds bilaterally, clear to auscultation and percussion. No rales, rhonchi or wheezes noted. No increased work of breathing, no retractions or nasal flaring. Abdomen/GI: Soft, non-tender, with normal bowel sounds. No distension or tympany. No guarding or rebound. No evidence of tenderness throughout. Back: No spinal tenderness. No costovertebral tenderness. Full range of motion. Female : Normal external genitalia. MS/ Extremity: Pulses equal, no cyanosis. Neurovascular intact. Full, normal range of motion. Neuro: Awake and alert, GCS 15, oriented to person, place, time, and situation. Cranial nerves II-XII grossly intact. Motor strength 5/5 in all extremities. Sensory grossly intact. Cerebellar exam normal. Normal gait. Psych: Awake, alert, with orientation to person, place and time. Behavior, mood, and affect are within normal limits. 22:19 Skin: Appearance: Color: pale. 09/03 01:25 Abdomen/GI: Inspection: abdomen appears normal, Bowel sounds: normal, Palpation: essie nontender, Rectal exam: Stool: normal, guaiac negative, hemorrhoid(s), are not appreciated, mass, is not appreciated, swelling, is not appreciated, tenderness, is not appreciated. 01:44 Musculoskeletal/extremity: DVT Exam: no pain, no tenderness, negative Homans' sign essie noted on exam, no appreciated bluish discoloration, no erythema, no increased warmth, swelling. Vital Signs: 09/02 21:18 BP 147 / 62; Pulse 96; Resp 20; Temp 99.1(O); Pulse Ox 100% on 2 lpm NC; Weight 102.06 aa1 kg (R); Height 5 ft. 4 in. (162.56 cm); Pain 5/10; 22:03 BP 155 / 65; Pulse 96; Resp 19; Pulse Ox 100% on 2 lpm NC; tl1 09/03 00:22 BP 119 / 60; Pulse 88; Pulse Ox 100% ; ag4 01:45 BP 122 / 66; Pulse 85; Resp 17; Temp 99(O); Pulse Ox 100% ; Pain 4/10; tl1 09/02 21:18 Body Mass Index 38.62 (102.06 kg, 162.56 cm) aa1 MDM: 09/02 21:08 Patient medically screened. [facility] 22:22 Data reviewed: vital signs, nurses notes, lab test result(s), EKG, radiologic studies, [facility] CT scan, plain films. 09/02 21:42 Order name: Urine Dipstick--Ancillary (enter results); Complete Time: 23:51 [facility] 09/02 22:19 Order name: Basic Metabolic Panel; Complete Time: 23:51 [facility] 09/02 22:19 Order name: CBC with Diff; Complete Time: 23:51 [facility] 09/02 22:19 Order name: LFT's; Complete Time: 23:51 [facility] 09/02 22:19 Order name: Magnesium; Complete Time: 23:51 [facility] 09/02 22:19 Order name: NT PRO-BNP; Complete Time: 23:51 [facility] 09/02 22:19 Order name: PT-INR; Complete Time: 23:51 [facility] 09/02 22:19 Order name: Troponin (emerg Dept Use Only); Complete Time: 23:51 [facility] 09/02 22:19 Order name: Lipase; Complete Time: 23:51 [facility] 09/02 22:19 Order name: Urine Culture [facility] 09/02 22:22 Order name: Type And Screen [facility] 09/02 22:23 Order name: Depakote; Complete Time: 23:51 [facility] 09/03 01:02 Order name: Basic Metabolic Panel EDMS 09/03 01:02 Order name: CBC with Automated Diff EDMS 09/02 22:19 Order name: XRAY Chest (1 view) [facility] 09/02 22:19 Order name: CT Head Brain wo Cont essie 09/03 01:02 Order name: CBC with Automated Diff EDMS 09/03 01:02 Order name: CBC with Automated Diff EDMS 09/03 01:02 Order name: Protime (+INR) EDMS 09/03 01:02 Order name: Protime (+INR) EDMS 09/03 01:02 Order name: PTT, Activated Partial Thromb EDMS 09/03 01:02 Order name: PTT, Activated Partial Thromb EDMS 09/03 01:02 Order name: BB Add On EDMS 09/03 01:04 Order name: Packed RBC Leukored -1 EDMS 09/03 01:19 Order name: Hemoglobin aa1 09/03 01:19 Order name: Hematocrit aa1 09/03 01:49 Order name: Hemoglobin EDMS 09/03 01:49 Order name: Hematocrit EDMS 09/02 22:19 Order name: EKG; Complete Time: 22:20 [facility] 09/02 22:19 Order name: Cardiac monitoring; Complete Time: 22:24 essie 09/02 22:19 Order name: EKG - Nurse/Tech; Complete Time: 22:24 [facility] 09/02 22:19 Order name: IV Saline Lock; Complete Time: 22:24 [facility] 09/02 22:19 Order name: Labs collected and sent; Complete Time: 22:24 [facility] 09/02 22:19 Order name: O2 Per Protocol; Complete Time: 22:24 [facility] 09/02 22:19 Order name: O2 Sat Monitoring; Complete Time: 22:25 [facility] 09/03 01:02 Order name: CONS Pharmacy Consult EDMS 09/03 01:02 Order name: CONS Physician Consult EDMS 09/03 01:02 Order name: NPO EDMS Administered Medications: Discontinued: NS 0.9% 1000 ml IV at 125 ml/hr continuous 23:27 Drug: Pepcid 20 mg Route: IVP; Infused Over: 3 mins; Site: left upper arm; tl1 09/03 01:33 Follow up: Response: No adverse reaction; No change in condition 1 09/02 23:28 Drug: NS 0.9% 1000 ml Route: IV; Rate: 125 ml/hr; Site: left upper arm; tl1 09/03 02:21 Follow up: IV Status: Order to discontinue infusion tl1 00:20 Drug: Lasix 40 mg Route: IVP; Infused Over: 4 mins; Site: left upper arm; tl1 01:33 Follow up: Response: No adverse reaction; No change in condition tl1 01:20 Drug: ProTONIX 40 mg Route: IVP; Infused Over: 2 mins; Site: left upper arm; tl1 01:32 Follow up: Response: No adverse reaction; No change in condition tl1 Point of Care Testing: Guaiac: 01:44 Stool Guaiac: Negative; Stool Hemoccult Control: Pass; essie Disposition: 09/02/18 23:57 Hospitalization ordered by Ralph Mahan for Inpatient Admission. Preliminary diagnosis are Headache, Weakness, Unspecified kidney failure, Cardiomegaly, Anemia, unspecified. - Bed requested for Telemetry/MedSurg (Inpatient). - Status is Inpatient Admission. tl1 - Condition is Fair. - Problem is new. - Symptoms have improved. UTI on Admission? No Signatures: Dispatcher [employer] EDMS Lyly Barrera RN RN Arlene Fried RN RN aa1 Joe Figueroa MD MD cha Lasagna, Tonya, RN RN tl1 Corrections: (The following items were deleted from the chart) 01:09/02 23:57 Hospitalization Ordered by Ralph Mahan MD for Inpatient Admission. [facility] Preliminary diagnosis is Headache; Weakness; Unspecified kidney failure; Cardiomegaly. Bed requested for Telemetry/MedSurg (Inpatient). Status is Inpatient Admission. Condition is Fair. Problem is new. Symptoms have improved. UTI on Admission? No. essie 09/03 01:13 01:03 09/02/2018 23:57 Hospitalization Ordered by Ralph Mahan MD for Inpatient mw Admission. Preliminary diagnosis is Headache; Weakness; Unspecified kidney failure; Cardiomegaly; Anemia, unspecified. Bed requested for Telemetry/MedSurg (Inpatient). Status is Inpatient Admission. Condition is Fair. Problem is new. Symptoms have improved. UTI on Admission? No. essie 02:23 01:13 09/02/2018 23:57 Hospitalization Ordered by Ralph Mahan MD for Inpatient tl1 Admission. Preliminary diagnosis is Headache; Weakness; Unspecified kidney failure; Cardiomegaly; Anemia, unspecified. Bed requested for Telemetry/MedSurg (Inpatient). Status is Inpatient Admission. Condition is Fair. Problem is new. Symptoms have improved. UTI on Admission? No. mw
--- NOTE | 2018-09-02 23:58 | ER ---
Nurse's Notes [facility] Name: Fannie Plunkett Age: 58 yrs Sex: Female : 1960 Arrival Date: 09/02/2018 Time: 21:06 Bed 2 Private MD: Diagnosis: Headache;Weakness;Unspecified kidney failure;Cardiomegaly;Anemia, unspecified Presentation: 09/02 21:18 Presenting complaint: EMS states: that reported that pt has been having aa1 weakness for the past couple of weeks that has gotten significantly worse over the past couple days. States that pt began saying things that didn't make since this morning and kept dropping things as well. Reports she was seen here 2 days ago and diagnosed with an ear infection and has been taking azithromycin but reports her ears are still hurting badly. Also reports pt had PAULINA fistula placed for dialysis about a week and a half ago but she has not started her treatments yet. EMS reports when they arrived on scene pt was able to get up and ambulate with a steady gait to their stretcher. RA O2 sat RECREATION TEACHER was 90% however states that pt uses O2 at home PRN. Upon arrival to ED pt alert, NAD noted. Transition of care: patient was not received from another setting of care. Onset of symptoms was August 2018. Risk Assessment: Do you want to hurt yourself or someone else? Patient reports no desire to harm self or others. Initial Sepsis Screen: Does the patient meet any 2 criteria? Altered Mental Status. HR > 90 bpm. Does the patient have a suspected source of infection? No. Patient's initial sepsis screen is negative. Care prior to arrival: Glucose check: 109 Oxygen administered. via nasal cannula. 21:18 Method Of Arrival: EMS: [facility] aa1 21:18 Acuity: MODESTA 2 aa1 Historical: - Allergies: 21:48 Morphine; aa1 21:48 Codeine; aa1 21:48 NSAIDS; aa1 21:48 Tape; aa1 - Home Meds: 21:48 Depakote 500 mg Oral TbEC 1 tab (1 tab in am \T\ 2 tabs in pm) [Active]; Nexium 40 mg aa1 Oral cpDR 1 cap once daily [Active]; Lasix 20 mg Oral tab 1 tab as needed [Active]; Lunesta 3 mg Oral tab 1 tab once daily [Active]; Klonopin 0.5 mg Oral tab 1 tab nightly [Active]; Robaxin 750 mg Oral tab 2 tabs as needed [Active]; Bystolic 20 mg Oral tab 1 tab once daily [Active]; aspirin 81 mg Oral TbEC 1 tab once daily [Active]; Vitamin C 500 mg Oral tab 500 mg daily [Active]; levothyroxine 100 mcg tab 1 tab once daily [Active]; Crestor 40 mg Oral tab 1 tab nightly [Active]; Vascepa 1 gram Oral cap 2 caps 2 times per day [Active]; Patanase 0.6 % nasal spry 2 sprays 2 times per day [Active]; Atrovent 0.06 % Nasal spry 2 sprays 3 times per day [Active]; Zyrtec 10 mg Oral tab 1 tab once daily [Active]; Adcirca 20 mg oral tab 2 tabs nightly [Active]; Detrol LA 4 mg Oral cp24 1 cap nightly [Active]; calcium carbonate 600 mg (1,500 mg) Oral tab 2 tab daily [Active]; allopurinol 100 mg Oral tab 1 tab nightly [Active]; Vitamin D3 2,000 unit oral tab daily [Active]; tramadol 50 mg Oral tab as needed [Active]; Restasis 0.05 % ophthalmic dpet 1 drop 2 times per day [Active]; - PMHx: 21:48 Anemia; Depression; GERD; Hyperlipidemia; Hypothyroidism; ibs; PAH; Sleep Apnea; Renal aa1 Disease; Lymphedema; Bowel Obstruction; Hypertension; Arthritis; - PSHx: 21:48 fistula on R arm; Hysterectomy; IVC filter; Joint replacement; Hernia repair; aa1 - Immunization history:: Pneumococcal vaccine is up to date, Flu vaccine is up to date. - Social history:: Smoking status: Patient/guardian denies using tobacco. - Ebola Screening: : No symptoms or risks identified at this time. - Family history:: not pertinent. Screenin:20 Abuse screen: Denies threats or abuse. Denies injuries from another. Nutritional aa1 screening: No deficits noted. Tuberculosis screening: No symptoms or risk factors identified. Fall Risk None identified. 22:02 Patient has been NPO before screening. The patient is alert, able to follow commands. tl1 The patient does not exhibit slurred or garbled speech The patient is not exhibiting difficulty speaking. The patient does not exhibit difficulty understanding words. The patient is able to swallow own secretions with no drooling or need for suction. Patient tolerated one teaspoon of water. No drooling, immediate coughing, gurgling, or clearing of the throat was noted. The patient tolerated 90mL of water. No drooling, immediate coughing, gurgling, or clearing of the throat was noted. The patient passed the bedside swallow screening. Oral medications may be given as ordered. Contact Physician for further diet orders. Assessment: 21:20 General: Appears in no apparent distress. comfortable, obese, Behavior is calm, aa1 cooperative. Pain: Complains of pain in right ear and left ear Pain began 2-3 days ago. Neuro: Level of Consciousness is awake, obeys commands, confused. Neuro: Oriented to person, place, situation, Pt can state current president but had difficult time remembering date. Trend Investigator are equal bilaterally Moves all extremities. Gait is steady per EMS report. Speech is normal, Facial symmetry appears normal, Pupils are PERRLA, Intact Reports weakness that is generalized for past couple weeks and has worsened over past 2-3 days Denies blurred vision dizziness, difficulty swallowing, paresthesias numbness headache photophobia diplopia. Cardiovascular: Denies chest pain, palpitations, shortness of breath, Heart tones S1 S2 present. Respiratory: Airway is patent Respiratory effort is even, unlabored, Respiratory pattern is regular, symmetrical. GI: No signs and/or symptoms were reported involving the gastrointestinal system. : No signs and/or symptoms were reported regarding the genitourinary system. EENT: Reports pain in left ear and right ear. Derm: Skin is intact, is healthy with good turgor, Skin is dry, Skin is pale, Skin temperature is warm. Musculoskeletal: Circulation, motion, and sensation intact. Capillary refill < 3 seconds. 22:08 Reassessment: Patient appears in no apparent distress at this time. Patient and/or aa1 family updated on plan of care and expected duration. Pain level reassessed. Dr. Figueroa at bedside for initial assessment. 22:49 Reassessment: critical result Hgb-6.9, Hct- 20.6 relayed by director of cath lab Kishore. primary mg2 nurse informed. 09/03 02:19 Reassessment: Patient appears in no apparent distress at this time. Patient and/or tl1 family updated on plan of care and expected duration. Pain level reassessed. Patient states symptoms have improved. Vital Signs: 09/02 21:18 BP 147 / 62; Pulse 96; Resp 20; Temp 99.1(O); Pulse Ox 100% on 2 lpm NC; Weight 102.06 aa1 kg (R); Height 5 ft. 4 in. (162.56 cm); Pain 5/10; 22:03 BP 155 / 65; Pulse 96; Resp 19; Pulse Ox 100% on 2 lpm NC; tl1 03 00:22 BP 119 / 60; Pulse 88; Pulse Ox 100% ; ag4 01:45 BP 122 / 66; Pulse 85; Resp 17; Temp 99(O); Pulse Ox 100% ; Pain 4/10; tl1 09/02 21:18 Body Mass Index 38.62 (102.06 kg, 162.56 cm) aa1 ED Course: 09/02 21:06 Patient arrived in ED. ds1 21:06 Patient has correct armband on for positive identification. Placed in gown. Bed in low aa1 position. Call light in reach. Side rails up X2. technical manager chemical plant on. Pulse ox on. NIBP on. Warm blanket given. 21:06 Oxygen administration via nasal cannula \T\ 2L/min. aa1 21:08 Joe Figueroa MD is Attending Physician. [facility] 21:09 Mckeon cath inserted, using sterile technique, 16 Fr., by ED staff, balloon inflated, to aa1 gravity drainage, other by Eileen Huang RN. 21:18 Arm band placed on right wrist. aa1 21:26 Triage completed. aa1 21:28 Missed attempt(s): 20 gauge in left antecubital area. ag4 21:29 EKG done, by ED staff, reviewed by Joe Figueroa MD. ag4 22:20 Initial lab(s) drawn, by mn, sent to lab. Inserted 18 gauge 10 cm midline to left upper fc brachial vein on first attempt. Line with good blood return and flushes well. 22:[address] mw3 22:32 XRAY Chest (1 view) In Process Unspecified. EDMS 22:58 CT Head Brain wo Cont In Process Unspecified. EDMS 23:55 Ralph Mahan MD is Hospitalizing Provider. [facility] 09/03 00:21 Eileen Huang, MARC is Primary Nurse. tl1 02:18 No provider procedures requiring assistance completed. Patient admitted, IV remains in tl1 place. Administered Medications: Discontinued: NS 0.9% 1000 ml IV at 125 ml/hr continuous 09/02 23:27 Drug: Pepcid 20 mg Route: IVP; Infused Over: 3 mins; Site: left upper arm; tl1 09/03 01:33 Follow up: Response: No adverse reaction; No change in condition tl1 09/02 23:28 Drug: NS 0.9% 1000 ml Route: IV; Rate: 125 ml/hr; Site: left upper arm; tl1 09/03 02:21 Follow up: IV Status: Order to discontinue infusion tl1 00:20 Drug: Lasix 40 mg Route: IVP; Infused Over: 4 mins; Site: left upper arm; tl1 01:33 Follow up: Response: No adverse reaction; No change in condition tl1 01:20 Drug: ProTONIX 40 mg Route: IVP; Infused Over: 2 mins; Site: left upper arm; tl1 01:32 Follow up: Response: No adverse reaction; No change in condition tl1 Point of Care Testing: Guaiac: 01:44 Stool Guaiac: Negative; Stool Hemoccult Control: Pass; essie Outcome: 09/02 23:57 Decision to Hospitalize by Provider. [facility] 09/03 02:18 Admitted to Tele accompanied by tech, via stretcher, with chart, Report called to tl1 Norman TRAN Condition: stable Instructed on the need for admit. 02:23 Patient left the ED. tl1 Signatures: Dispatcher [employer] EDMS Arlene Fried RN RN aa1 Joe Figueroa MD MD cha Chretien, Felicia RN Desire Peacock ds1 Eileen Huang RN RN tl1 aMnjit Stone RN RN mg2 Willis, Michelle 3 Sunday Rowe ag4 Corrections: (The following items were deleted from the chart) 09/02 21:28 21:18 Initial Sepsis Screen: Does the patient meet any 2 criteria? Altered Mental aa1 Status. Does the patient have a suspected source of infection? No. Patient's initial sepsis screen is negative. aa1
[2018-09-03] MEDS ORDERED: FUROSEMIDE 40 MG/4 ML VIAL ONE (00:27)
[2018-09-03] MEDS ORDERED: ONDANSETRON 4 MG/2 ML VIAL IV PRN (00:48)
[2018-09-03] MEDS ORDERED: MORPHINE 2 MG/ML SYR IV PRN (00:48)
[2018-09-03] MEDS ORDERED: ACETAMINOPHEN 500 MG TAB PO ONE (00:48)
[2018-09-03] MEDS ORDERED: FUROSEMIDE 20 MG/ 2ML VIAL IV ONE (00:48)
[2018-09-03] MEDS ORDERED: ACETAMINOPHEN 500 MG TAB PO PRN (00:48)
[2018-09-03] MEDS ORDERED: NA CHLORIDE 0.9% 250 ML IV SCH (01:00)
[2018-09-03] MEDS ORDERED: NA CHLORIDE 0.9% 1,000 ML IV SCH (01:00)
[2018-09-03 01:40] LABS: Hematocrit 26.5 % (36.0-45.0)
[2018-09-03] MEDS ORDERED: HYDROCODONE/APAP 10/325 TAB PO PRN (03:22)
[2018-09-03] MEDS: ESZOPICLONE 1 MG TAB PO SCH ×2 (04:06→21:00)
[2018-09-03] MEDS: DIVALPROEX DR 500MG TAB PO SCH ×2 (04:06→22:06)
[2018-09-03] MEDS: TOLTERODINE LA 4 MG CAP PO SCH ×2 (04:07→22:07)
[2018-09-03] MEDS: clonazePAM 0.5 MG TAB PO SCH ×2 (04:09→22:07)
[2018-09-03 05:04] LABS: Absolute Lymphocytes (CBC) 0.8 K/uL (0.7-4.9); Absolute Monocytes 0.6 K/uL (0.1-1.3); Absolute Neutrophil 3.1 K/uL (1.8-8.0); Basophils % 0.3 % (0-1.3); Hematocrit 27.2 % (36.0-45.0); Lymphocytes % 17.3 % (15.3-44.8); MPV 7.6 fL (7.6-11.3); Monocytes % 13.3 % (3.3-12.3); RBC Red Blood Cell Count 2.82 M/uL (3.86-4.86)
[2018-09-03 05:08] LABS: Protime INR 1.11
[2018-09-03 05:13] LABS: Potassium 4.2 mmol/L (3.5-5.1)
--- NOTE | 2018-09-03 07:49 | RAD REPORT ---
EXAM DESCRIPTION: Yessy Single View09/02/2018 10:33 pm CLINICAL HISTORY: Cough COMPARISON: October 2017 FINDINGS: The lungs appear clear of acute infiltrate. The heart is mildly to moderately enlarged IMPRESSION: No acute abnormalities displayed
[2018-09-03 07:58] VITALS: BMI 38.6
--- NOTE | 2018-09-03 09:10 | EKG ---
Test Date: 2018-09-02 Test Time: 21:14:36 Clay Dry Press Operator: [id number] MEASUREMENT RESULTS: Intervals: Rate: 95 [place]: 144 QRSD: 90 QT: 344 QTc: 432 [place]: P: 57 KY: 144 QRS: 56 T: 57 INTERPRETIVE STATEMENTS: Normal sinus rhythm ST abnormality, possible digitalis effect Abnormal ECG Compared to ECG 11/22/2017 08:26:36 ST (T wave) deviation now present Electronically Signed On 09-03-18 09:09:34 RADIOLOGY SUPERVISOR by Khang Salmeron
[2018-09-03] MEDS: PANTOPRAZOLE 40 MG INJ IVP SCH ×2 (09:48→22:07)
--- NOTE | 2018-09-03 10:26 | P.HP ---
Certification for Inpatient Patient admitted to: Inpatient With expected LOS: >2 Midnights Patient will require the following post-hospital care: None Practitioner: I am a practitioner with admitting privileges, knowledge of patient current condition, hospital course, and medical plan of care. Services: Services provided to patient in accordance with Admission requirements found in Title 42 Section 412.3 of the Code of Federal Regulations Patient History Date of Service: 09/03/18 Reason for admission: Altered mental status; anemia History of Present Illness: Patient is a 58-year-old female who was recently seen in the hospital for AV fistula placement. Patient has chronic kidney disease which is rapidly progressing. Patient also has anemia and has been on Procrit. Since being at home patient has had some episodes were she has been confused. She believes this started after the anesthesia; however, her states this started about 24 hr ago. Her speech seems a little pressured, and she tends to not answer some of my questions appropriately. CT of the brain was negative. She was severely anemic with a hemoglobin of 6.9. Will go ahead and repeat this in transfuse. We may need to Consult her rubber tester Dr. West if her renal function continues to decline. Will probably need to do further evaluation time assess her mental status. She will be admitted to the hospital for further workup. Allergies codeine [Codeine] Allergy (Mild, Verified 09/03/18 03:33) Itching morphine Adverse Reaction (Severe, Verified 09/03/18 03:33) Decreased blood pressure NSAIDS (Non-Steroidal Anti-Inflamma Adverse Reaction (Intermediate, Verified 10/19 03:33) kidney insufficiency Tape Allergy (Uncoded 07/05/18 10:37) Unknown Home Medications: Adcirca 20mg 2 tab PO BEDTIME 09/03/18 Allopurinol [Zyloprim] 100 mg PO BEDTIME 09/03/18 Ascorbic Acid [Vitamin C] 500 mg PO DAILY 09/03/18 Aspirin [Aspir-Low] 81 mg PO DAILY 09/03/18 Calcium Carbonate [Calcium] 2 tab PO DAILY 09/03/18 Cholecalciferol (Vitamin D3) [Vitamin D3] 2,000 unit PO DAILY 09/03/18 Cyclosporine [Restasis] 1 drop EACH EYE BID 09/03/18 Divalproex Sodium [Depakote] 1,000 mg PO BEDTIME 09/03/18 Divalproex Sodium [Depakote] 500 mg PO DAILY 09/03/18 Esomeprazole Mag Trihydrate [Nexium] 40 mg PO DAILY 09/03/18 Eszopiclone [Lunesta] 3 mg PO BEDTIME 09/03/18 Furosemide [Lasix] 20 mg PO DAILY PRN 09/03/18 Icosapent Ethyl [Vascepa] 2 cap PO BID 09/03/18 Ipratropium [Atrovent 0.03% (21MCG)/[place] Nasal] 2 sprays NS TID 09/03/18 L.acidoph,Paracasei, B.lactis [Probiotic] 1 each PO DAILY 09/03/18 Levothyroxine Sodium 100 mcg PO DAILY 09/03/18 Loratadine [Claritin] 10 mg PO BEDTIME 09/03/18 Multivitamin [Multivitamins] 1 each PO BEDTIME 09/03/18 Nebivolol HCl [Bystolic] 20 mg PO DAILY 09/03/18 Olopatadine HCl [Patanase] 2 spray NS BID 09/03/18 Rosuvastatin Calcium [Crestor] 40 mg PO BEDTIME 09/03/18 Tolterodine Tartrate [Detrol LA] 4 mg PO BEDTIME 09/03/18 Tramadol HCl [Ultram] 50 mg PO Q8H PRN 09/03/18 clonazePAM [Klonopin] 0.5 mg PO BEDTIME 09/03/18 - Past Medical/Surgical History Has patient received pneumonia vaccine in the past: Yes Diabetic: No -: sleep apnea -: IBS/GERD -: Hypothyroidism -: ANEMIA -: Pulmonary HTN -: back pain/ pinch nerves -: CKD, seasonal allergies -: HTN -: DVT -: hypertriglyceridemia -: hyperlipidemia -: lymphedema -: Hysterectomy -: Hernia repair -: Knee SX -: colon resection -: back Sx, Sciatica -: cyst removed from forehead x2 -: breast biopsy x2 -: fistula PAULINA - Family History Mother Medical History: Hypertension, Blood disorders - Social History Smoking Status: Never smoker Alcohol use: Yes CD- Drugs: Yes Caffeine use: Yes Place of Residence: Home Review of Systems 10-point ROS is otherwise unremarkable Physical Examination - Vital Signs Temperature: 98.2 F Blood Pressure: 134/60 Pulse: 85 Respirations: 20 Pulse Ox (%): 100 - Physical Exam General: Alert, In no apparent distress, Oriented x2, Confused HEENT: Atraumatic, PERRLA, Mucous membr. moist/pink, EOMI, Sclerae nonicteric Neck: Supple, 2+ carotid pulse no bruit, No LAD, Without JVD or thyroid abnormality Respiratory: Clear to auscultation bilaterally, Normal air movement Cardiovascular: Regular rate/rhythm, Normal S1 S2, No murmurs Gastrointestinal: Normal bowel sounds, Soft and benign, Non-distended, No tenderness Musculoskeletal: No clubbing, No swelling, No tenderness Integumentary: No rashes, Other (Right upper extremity with fistula) Neurological: Normal gait, Normal speech, Normal tone, Sensation intact, Cranial nerves 3-12 intact, Normal affect, Abnormal strength Lymphatics: No axilla or inguinal lymphadenopathy - Studies Laboratory Data (last 24 hrs) 09/02/18 22:20: PT 12.9 H, INR 1.10 09/02/18 22:20: WBC 5.7, Hgb 6.9 L* D, Hct 20.6 L* D, Plt Count 123 L 09/02/18 22:20: Sodium 146 H, Potassium 4.8, BUN 58 H, Creatinine 2.47 H, Glucose 95, Magnesium 2.2, Total Bilirubin 0.3, AST 13 L, ALT 9 L, Alkaline Phosphatase 75, Lipase 259 Assessment & Plan - Problems (Diagnosis) (1) Altered mental status Current Visit: Yes Status: Acute (2) Chronic kidney disease Current Visit: Yes Status: Acute (3) AV fistula Current Visit: Yes Status: Acute (4) Anemia in chronic kidney disease Current Visit: Yes Status: Acute (5) Thrombocytopenia Current Visit: Yes Status: Acute - Plan 1. Physical therapy evaluation 2. Monitor H&H and transfuse if continues to be low. Also get renal consultation 3. Anti-platelet therapy and statin therapy 4. Lipid profile in the morning 5. MRI of the brain 6. Physically patient is doing well, but will need to keep an eye on her neurologically 7. Neurology consultation if mental status worsens 8. Permissive hypertension and gradual blood pressure control 9. Neuro checks every 4 hr 10. GI and DVT prophylaxis Discharge Plan: Home Plan to discharge in: Greater than 2 days - Advance Directives Does patient have a Living Will: Yes Does patient have a Durable POA for Healthcare: Yes - Code Status/Comfort Care Code Status Assessed: Yes Code Status: Full Code Critical Care: No Time Spent Managing PTS Care (In Minutes): 50
--- NOTE | 2018-09-03 11:52 | RAD REPORT ---
EXAM DESCRIPTION: MRI - Brain Wo Cont - 09/03/2018 11:40 am CLINICAL HISTORY: AMS, WEAKNESS Headache, drowsiness COMPARISON: MRA Head Wo Cont dated 09/03/2018; Brain Wo Cont dated 09/19/2017; Head Brain Wo Cont dated 09/19/2017; Head Brain Wo Cont dated 09/02/2018 TECHNIQUE: Multi-sequence, multiplanar MR imaging of the brain was performed without contrast. FINDINGS: No intracranial hemorrhage, hydrocephalus or extra-axial fluid collections. No edema or sh ift of midline structures. No findings to suspect intra-axial brain mass. DWI is negative for acute C VA. 5 mm colloid cyst is noted. Mastoid air cells and paranasal sinuses are clear. IMPRESSION: 5 mm colloid cyst is identified. This can result in positional headaches. Otherwise, no acute or aggressive intracranial abnormality.
--- NOTE | 2018-09-03 11:57 | RAD REPORT ---
EXAM DESCRIPTION: MRI - MRA Head Wo Cont - 09/03/2018 11:39 am CLINICAL HISTORY: ALTERED MENTAL STATUS, WEAKNESS Drowsiness, headache COMPARISON: Head Brain Wo Cont dated 09/02/2018 FINDINGS: 3D noncontrast [id number] MR angiography of the [place] was performed. There is robust bilateral symmetric intracranial blood flow noted. No aneurysm, flow-limiting stenosi s or vascular malformation is seen. Forward flow seen in codominant vertebral arteries. The visualized dural venous sinuses appear patent. 5 mm colloid cyst is noted. IMPRESSION: No significant flow abnormality of the [place] is identified.
--- NOTE | 2018-09-03 13:01 | RAD REPORT ---
EXAM DESCRIPTION: CT - Head Brain Wo Cont - 09/03/2018 3:40 am CLINICAL HISTORY: Dizziness. Headache. COMPARISON: None. TECHNIQUE: CT scan of the brain without IV contrast. This exam was performed according to our depa rtmental dose-optimization program, which includes automated exposure control, adjustment of the mA a nd/or kV according to patient size and/or use of iterative reconstruction technique. FINDINGS: The ventricles, cisterns, and sulci are unremarkable. No focal white matter lesions are se en. No evidence of acute infarction, intracranial hemorrhage, extra-axial fluid collection, or midlin e shift. No air-fluid levels are seen in the paranasal sinuses to suggest acute sinusitis. No depress ed skull fracture. IMPRESSION: No acute intracranial findings. Electronically signed by: Delvin Posey MD 09/02/2018 11:04 PM LAWN SERVICE MANAGER Due to temporary technical issues with the PACS/Fluency reporting system, reports are being signed by the in house radiologist as a courtesy to ensure prompt reporting. The interpreting radiologist is f ully responsible for the content of the report.
--- NOTE | 2018-09-03 17:54 | P.HP ---
Certification for Inpatient Patient admitted to: Inpatient With expected LOS: >2 Midnights Practitioner: I am a practitioner with admitting privileges, knowledge of patient current condition, hospital course, and medical plan of care. Services: Services provided to patient in accordance with Admission requirements found in Title 42 Section 412.3 of the Code of Federal Regulations Patient History Date of Service: 09/03/18 Reason for admission: Altered mental status; anemia History of Present Illness: SHE COULD NOT TELL ME WHYS SHE IS HERE. FOUND HER CONFUSED. SHE DENIES ANY COMPLAINTS. Allergies codeine [Codeine] Allergy (Mild, Verified 09/03/18 03:33) Itching morphine Adverse Reaction (Severe, Verified 09/03/18 03:33) Decreased blood pressure NSAIDS (Non-Steroidal Anti-Inflamma Adverse Reaction (Intermediate, Verified 10/19 03:33) kidney insufficiency Tape Allergy (Uncoded 07/05/18 10:37) Unknown Home Medications: Adcirca 20mg 2 tab PO BEDTIME 09/03/18 Allopurinol [Zyloprim] 100 mg PO BEDTIME 09/03/18 Ascorbic Acid [Vitamin C] 500 mg PO DAILY 09/03/18 Aspirin [Aspir-Low] 81 mg PO DAILY 09/03/18 Calcium Carbonate [Calcium] 2 tab PO DAILY 09/03/18 Cholecalciferol (Vitamin D3) [Vitamin D3] 2,000 unit PO DAILY 09/03/18 Cyclosporine [Restasis] 1 drop EACH EYE BID 09/03/18 Divalproex Sodium [Depakote] 1,000 mg PO BEDTIME 09/03/18 Divalproex Sodium [Depakote] 500 mg PO DAILY 09/03/18 Esomeprazole Mag Trihydrate [Nexium] 40 mg PO DAILY 09/03/18 Eszopiclone [Lunesta] 3 mg PO BEDTIME 09/03/18 Furosemide [Lasix] 20 mg PO DAILY PRN 09/03/18 Icosapent Ethyl [Vascepa] 2 cap PO BID 09/03/18 Ipratropium [Atrovent 0.03% (21MCG)/[place] Nasal] 2 sprays NS TID 09/03/18 L.acidoph,Paracasei, B.lactis [Probiotic] 1 each PO DAILY 09/03/18 Levothyroxine Sodium 100 mcg PO DAILY 09/03/18 Loratadine [Claritin] 10 mg PO BEDTIME 09/03/18 Multivitamin [Multivitamins] 1 each PO BEDTIME 09/03/18 Nebivolol HCl [Bystolic] 20 mg PO DAILY 09/03/18 Olopatadine HCl [Patanase] 2 spray NS BID 09/03/18 Rosuvastatin Calcium [Crestor] 40 mg PO BEDTIME 09/03/18 Tolterodine Tartrate [Detrol LA] 4 mg PO BEDTIME 09/03/18 Tramadol HCl [Ultram] 50 mg PO Q8H PRN 09/03/18 clonazePAM [Klonopin] 0.5 mg PO BEDTIME 09/03/18 - Past Medical/Surgical History Has patient received pneumonia vaccine in the past: Yes Diabetic: No -: sleep apnea -: IBS/GERD -: Hypothyroidism -: ANEMIA -: Pulmonary HTN -: back pain/ pinch nerves -: CKD, seasonal allergies -: HTN -: DVT -: hypertriglyceridemia -: hyperlipidemia -: lymphedema -: Hysterectomy -: Hernia repair -: Knee SX -: colon resection -: back Sx, Sciatica -: cyst removed from forehead x2 -: breast biopsy x2 -: fistula PAULINA - Family History Mother -: Hypertension, Blood disorders - Social History Smoking Status: Never smoker Alcohol use: Yes CD- Drugs: Yes Caffeine use: Yes Place of Residence: Home Review of Systems 10-point ROS is otherwise unremarkable General: Weakness, Malaise Neurological: Confusion Physical Examination - Vital Signs Temperature: 98.0 F Blood Pressure: 117/59 Pulse: 83 Respirations: 16 Pulse Ox (%): 100 - Physical Exam General: Alert, Mild distress, Obese HEENT: Atraumatic, PERRLA, Mucous membr. moist/pink, EOMI, Sclerae nonicteric Neck: Supple, 2+ carotid pulse no bruit, No LAD, Without JVD or thyroid abnormality Respiratory: Clear to auscultation bilaterally, Normal air movement Cardiovascular: Regular rate/rhythm, Normal S1 S2 Gastrointestinal: Normal bowel sounds, No tenderness Musculoskeletal: No tenderness Integumentary: No rashes Neurological: Normal gait, Normal speech, Normal strength at 5/5 x4 extr, Normal tone, Normal affect Lymphatics: No axilla or inguinal lymphadenopathy - Studies Laboratory Data (last 24 hrs) 09/02/18 22:20: PT 12.9 H, INR 1.10 09/02/18 22:20: WBC 5.7, Hgb 6.9 L* D, Hct 20.6 L* D, Plt Count 123 L 09/02/18 22:20: Sodium 146 H, Potassium 4.8, BUN 58 H, Creatinine 2.47 H, Glucose 95, Magnesium 2.2, Total Bilirubin 0.3, AST 13 L, ALT 9 L, Alkaline Phosphatase 75, Lipase 259 Assessment and Plan - Problems (Diagnosis) (1) Altered mental status Current Visit: Yes Status: Acute Plan: MRI BRAIN STROKE PROTOCOL IS NORMAL. SHE HAS DELIRUIM BUT NO REASON FOR IT. SHE CAN HAVE ATYPICAL SEZURES. SHE IS ALREADY ON KEPPRA. ADD THIAMINE DAILY NEUROLOGY CONSULT EEG IN AM. (2) Anemia Current Visit: No Status: Acute Plan: I HAVE CONSULTED DR. KAUR. HE HASDONE EGD AND CRC A YEAR AGO. - Advance Directives Does patient have a Living Will: Yes Does patient have a Durable POA for Healthcare: Yes
[2018-09-04] MEDS ORDERED: FUROSEMIDE 20 MG TABLET PO PRN (04:30)
[2018-09-04] MEDS ORDERED: TRAMADOL HCL 50 MG TAB PO PRN ×2 (04:30→20:34)
[2018-09-04 05:04] LABS: RBC Red Blood Cell Count 2.68 M/uL (3.86-4.86)
[2018-09-04 05:08] LABS: Absolute Monocytes 0.6 K/uL (0.1-1.3); Absolute Neutrophil 2.7 K/uL (1.8-8.0); Basophils % 0.4 % (0-1.3); Eosinophils % 2.6 % (0-4.4); Hematocrit 25.8 % (36.0-45.0); Lymphocytes % 21.4 % (15.3-44.8); MPV 7.7 fL (7.6-11.3); Monocytes % 14.3 % (3.3-12.3); RBC Red Blood Cell Count 2.64 M/uL (3.86-4.86)
[2018-09-04 06:13] LABS: Ferritin 309.3 ng/mL (8-388)
[2018-09-04] MEDS: LEVOTHYROXINE SOD 0.1 MG TAB PO SCH (06:30)
[2018-09-04] MEDS: OLOPATADINE HCL NS SCH ×2 (09:00→23:01)
[2018-09-04] MEDS: CYCLOSPORINE EACH EYE SCH ×2 (09:00→23:05)
[2018-09-04] MEDS ORDERED: HOME MED 1 EA UNK (Esomeprazole Mag Trihydrate [Nexium] 40 MG) PO SCH (09:00)
[2018-09-04] MEDS: THIAMINE 200 MG/2 ML INJ IVP SCH (09:28)
[2018-09-04] MEDS: PANTOPRAZOLE 40 MG INJ IVP SCH ×2 (09:29→23:07)
[2018-09-04] MEDS ORDERED: PROPOFOL 200 MG/20 ML VIAL IV ONE (11:32)
[2018-09-04] MEDS ORDERED: Phenylephrine HCl 10 MG/ML 1 ML VIAL ONE (12:06)
[2018-09-04] MEDS ORDERED: NS 0.9% VIAL 0 ML ONE (12:06)
[2018-09-04] MEDS: DIVALPROEX DR 500MG TAB PO SCH ×2 (14:00→22:50)
[2018-09-04] MEDS: ASPIRIN EC 81 MG TAB PO SCH (14:00)
[2018-09-04] MEDS: ICOSAPENT ETHYL 1 GM CAP PO SCH ×2 (14:00→21:00)
[2018-09-04] MEDS: NEBIVOLOL HCL 20 MG TABLET PO SCH (14:18)
[2018-09-04] MEDS: ASCORBIC ACID 500 MG TABLET PO SCH (14:20)
[2018-09-04] MEDS: LACTOBACILLUS/ACIDOPHILUS TAB PO SCH (14:21)
--- NOTE | 2018-09-04 15:59 | RAD REPORT ---
EXAM DESCRIPTION: RAD - Abdomen 1 View (KUB) - 09/04/2018 3:37 pm CLINICAL HISTORY: Abdomen pain. FINDINGS: The bowel gas pattern is unremarkable. Surgical clips are present within the abdomen. And IVC filter is present at the L4-5 level.
--- NOTE | 2018-09-04 17:57 | P.PN ---
Subjective Date of Service: 09/04/18 Chief Complaint: Altered mental status; anemia Subjective: Improving CARMINE HAS MANY MEDICAL ISSUES. SHE HAD AV FISTULA FOR CKD , HD PREP AND THEN SHE DOES NOT KNOW WHAT HAPPENED. SHE IS NOT ABLE TO TELL ME. SHE IS SOMEWHAT DISORIENTED. Review of Systems 10-point ROS is otherwise unremarkable General: Weakness, Malaise Neurological: Weakness, Confusion, As per HPI Physical Examination - Vital Signs Temperature: 98.5 F Blood Pressure: 119/49 Pulse: 90 Respirations: 18 Pulse Ox (%): 100 - Physical Exam General: Alert, Mild distress, Obese HEENT: Atraumatic, PERRLA, EOMI Neck: Supple, JVD not distended Respiratory: Clear to auscultation bilaterally, Normal air movement Cardiovascular: Regular rate/rhythm, Normal S1 S2 Gastrointestinal: Normal bowel sounds, No tenderness Musculoskeletal: No tenderness Integumentary: No rashes Neurological: Normal speech, Normal tone, Normal affect Lymphatics: No axilla or inguinal lymphadenopathy - Studies Medications List Reviewed: Yes Assessment And Plan - Current Problems (Diagnosis) (1) Altered mental status Onset Date: 09/04/18 Current Visit: Yes Status: Acute Plan: MRI BRAIN STROKE PROTOCOL IS NORMAL. SHE HAS DELIRUIM BUT NO REASON FOR IT. SHE CAN HAVE ATYPICAL SEZURES. SHE IS ALREADY ON KEPPRA. ADD THIAMINE DAILY NEUROLOGY CONSULT EEG IN AM. HAS BEEN CONSULTED NO CVA ON MRI. (2) Anemia Onset Date: 09/04/18 Current Visit: Yes Status: Acute Plan: I HAVE CONSULTED DR. KAUR. HE HASDONE EGD AND CRC A YEAR AGO. NORMAL FERRITIN AND LOW TIBS. ANEMIA OF CHRONIC DISEASE. EPOGEN BY RENAL MD. Qualifiers: Anemia type: due to chronic kidney disease
[2018-09-04] MEDS ORDERED: DIVALPROEX DR 500MG TAB PO SCH (21:00)
[2018-09-04] MEDS ORDERED: ADCIRCA 20 MG PO SCH (21:00)
[2018-09-04] MEDS ORDERED: ALLOPURINOL 100 MG TAB PO SCH (21:00)
[2018-09-04] MEDS ORDERED: ROSUVASTATIN 10 MG TAB PO SCH (21:00)
[2018-09-04] MEDS ORDERED: LORATADINE 10 MG TAB PO SCH (21:00)
[2018-09-04] MEDS ORDERED: ESZOPICLONE 1 MG TAB PO SCH (21:00)
[2018-09-04] MEDS ORDERED: TOLTERODINE LA 4 MG CAP PO SCH (21:00)
[2018-09-04] MEDS ORDERED: clonazePAM 0.5 MG TAB PO SCH (21:00)
[2018-09-04] MEDS: TOLTERODINE LA 4 MG CAP PO SCH (22:50)
[2018-09-04] MEDS: ESZOPICLONE 1 MG TAB PO SCH (22:50)
[2018-09-04] MEDS: clonazePAM 0.5 MG TAB PO SCH (22:51)
--- NOTE | 2018-09-05 00:34 | CON ---
Date of Consultation: 09/04/2018 Time: 2029. Reason: Confusion. History: This is a 58-year-old lady with multiple medical problems as renal insufficiency, anemia, b ipolar disorder, hypertension, history of neuropathy that I had seen her for last in 2012. Had a fis sarah placed for worsening creatinine recently and the patient has had some intermittent confusional e pisodes. The patient states that she had some intermittent headaches primarily on the left as well. brought her to the emergency department for the confusion. CT scan of the brain was unremar kable. She was found to be anemic with a hemoglobin of 6.9, as well as confused and she was admitted to the hospital for evaluation and management of those problems. It seems that perhaps she is a lit tle bit better although she is still somewhat confused. She had an EGD. She has an ulcer. She had a brain MRI and no evidence of an acute stroke. EEG demonstrates generalized and excessive slowing, likely most consistent with a toxic metabolic although there are no kevin triphasic waves noted. She is on Depakote for bipolar disorder. Given all of the aforementioned, neurologic consultation was r equested. Past Medical History: As alluded to. Allergies: CODEINE, MORPHINE, NON-STEROIDALS, NSAIDS. Medications: Medications are extensive. Home medicines Ultram, Restasis, D3, multivitamin, allopuri nol, Detrol, Claritin, calcium, probiotics, Crestor, Vascepa, Bystolic, Klonopin, Lunesta, Nexium, De pakote 500 in the morning and a 1000 at night. Social History: Does drink and is normally independent with basic activities of daily living. Family History: Noncontributory. Review of Systems: General: Chronically ill. Eyes: Negative. Ears, Nose, Throat: Negative. Cardiovascular: Hypertension. Pulmonary: History of pulmonary hypert ension. GI: Ulcer. : Negative. Renal failure. Musculoskeletal: Arthralgias. Neurologic: As noted. Psychiatric: Bipolar disorder. Endocrine: Negative. Hematologic: Anemia. Physical Examination: Vital Signs: 98.5, 90, 18, 119/49. General: She is a pleasant, heavyset lady lying in bed, in no distress. Awake, alert, conversant. She knows she is in the hospital. She knows the year. She recognizes my face. She recognizes her h and and the thumb. She is still slightly confused. She called a ballpoint pen a thumb clicker. HEENT: Pupils proptotic, reactive, slightly decreased in the lateral ocular motion. Rehman full. F weston symmetric. Tongue midline. Soft palate elevates bilaterally. Neurologic: Extremity strength full. Sensation decreased distally. Reflexes trace to absent. Toes are downgoing. Cerebellar exam demonstrates no [id number]-[id number] ataxia. Pertinent Labs: MRI as noted. Hemoglobin 8.4 after receiving blood. Reticulocyte 2.7. Creatinine 2.5 with a GFR of 20. Iron level 32. B12 733. Depakote level 72. Impression: Altered mental status, likely multifactorial, possibly medication related. Plan: Continue IV thiamine as you are doing. We will check an ammonia level in the morning. Check a sedimentation rate in the morning given the headaches on the left. Decrease the tramadol to 50 mg daily given the concomitant renal failure. Brain MRI was only significant for a colloid cyst which a ppears that it is unruptured. We will check a carotid Doppler in the a.m. as well given the headache s and fluctuating neurologic symptoms. Thank you for the consult. We will continue to follow with you. PAYAL Voice ID: [id number] Report ID: [id number]
[2018-09-05] MEDS: LEVOTHYROXINE SOD 0.1 MG TAB PO SCH (05:22)
[2018-09-05 07:17] VITALS: O2SAT 96
[2018-09-05 08:02] VITALS: TEMP 97.5
--- NOTE | 2018-09-05 08:14 | RAD REPORT ---
EXAM DESCRIPTION: US - CP - 09/04/2018 9:48 pm CLINICAL HISTORY: tia Headache, hypertension COMPARISON: Head C Spine Mpr Wo Con dated 04/24/2018; Brain Wo Cont dated 09/03/2018; MRA Head Wo Cont dated 09/03/2018 TECHNIQUE: Real-time sonographic evaluation of both carotid systems was performed. Doppler interroga tion was performed with waveform tracing bilaterally. FINDINGS: Normal high resistance waveforms are noted in both external carotid arteries. The common c arotid arteries and internal carotid arteries show normal low resistance waveforms. No significant plaque formation is seen. Peak systolic and end diastolic velocity values and the ICA/ CCA ratios are in the non-hemodynamically significant range. Antegrade flow seen in both vertebral arteries. IMPRESSION: No significant atherosclerotic changes noted. No evidence of a hemodynamically significant stenosis.
--- NOTE | 2018-09-05 09:13 | EEG ---
CHART: [id number] TEST ID#: [id number] DATE OF STUDY: 09/04/2018 THE EEG WAS RECORDED PORTABLE IN THE PATIENTS ROOM ON A 17 CHANNEL MACHINE. ELECTRODES WERE APPLIED IN THE USUAL MANNER USING THE INTERNATIONAL 10-20 SYSTEM. THE WAKING BACKGROUND RHYTHM IN THIS RECORD CONSISTS OF POORLY DEVELOPED AND POORLY ORGANIZED WAVES OF UP TO 8 HZ., MAXIMAL IN THE POSTERIOR HEAD REGIONS WHICH ATTENUATE NORMALLY WITH EYE OPENING. ADMIXED AND SUPERIMPOSED SLOW WAVES OF 4-6 HZ ARE NOTED IN A SHIFTING DISTRIBUTION. THERE ARE NO FOCAL OR LATERALIZING FEATURES. NO EPILEPTIFORM ACTIVITY APPEARS. SLEEP DID NOT OCCUR. HYPERVENTILATION WAS NOT PERFORMED. PHOTIC STIMULATION PRODUCED POOR DRIVING BILATERALLY. IMPRESSION: ABNORMAL EEG BECAUSE OF GENERALZIED AND EXCESSIVE SLOWING OF THE BACKGROUND. THE ABOVE SUGGEST DIFFUSE CEREBRAL DYSFUNCTION.
[2018-09-05] MEDS: THIAMINE 200 MG/2 ML INJ IVP SCH (10:30)
[2018-09-05] MEDS: OLOPATADINE HCL NS SCH (10:48)
[2018-09-05] MEDS: NEBIVOLOL HCL 20 MG TABLET PO SCH (10:48)
[2018-09-05] MEDS: DIVALPROEX DR 500MG TAB PO SCH (10:48)
[2018-09-05] MEDS: ASPIRIN EC 81 MG TAB PO SCH (10:48)
[2018-09-05] MEDS: PANTOPRAZOLE 40 MG INJ IVP SCH (10:48)
[2018-09-05] MEDS: ICOSAPENT ETHYL 1 GM CAP PO SCH (10:48)
[2018-09-05] MEDS: ASCORBIC ACID 500 MG TABLET PO SCH (10:48)
[2018-09-05] MEDS: LACTOBACILLUS/ACIDOPHILUS TAB PO SCH (10:49)
[2018-09-05] MEDS: CYCLOSPORINE EACH EYE SCH (10:49)
[2018-09-05 12:03] VITALS: BP 108/49
--- NOTE | 2018-09-05 13:26 | P.PN ---
Subjective Date of Service: 09/05/18 Chief Complaint: Altered mental status; anemia Subjective: Improving (Feels better. Alert and oriented X3. Lying in bed. Tolerating po diet. Reports easy bruising recently and ear infection recently. Still has not seen any blood, no hematochezia, hematemesis, hematuria, ... EGD revealed gastritis and on PPI therapy. Colonoscopy in 2018 revealed anastomosis in right colon and internal hemorrhoids (see report in paper chart). ) Review of Systems 10-point ROS is otherwise unremarkable General: Weakness (improving, still not able to do SBS due to back pain - s/p fall with injury few months ago) Physical Examination - Vital Signs Temperature: 97.5 F Blood Pressure: 108/49 Pulse: 80 Respirations: 18 Pulse Ox (%): 100 - Physical Exam General: Alert, In no apparent distress, Oriented x3, Cooperative HEENT: Atraumatic, Normocephalic, PERRLA, EOMI Neck: Supple Respiratory: Normal air movement Cardiovascular: Normal pulses Gastrointestinal: Soft and benign (obese), No tenderness, No rebound, No guarding Neurological: Normal speech - Studies Microbiology Data (last 24 hrs): 09/02/18 21:39 Catheterized Urine [place] Count - Final 09/02/18 21:39 Catheterized Urine - Final Medications List Reviewed: Yes Assessment And Plan - Current Problems (Diagnosis) (1) Altered mental status Onset Date: 09/04/18 Current Visit: Yes Status: Acute Comment: Improved. (2) Anemia Onset Date: 09/04/18 Current Visit: Yes Status: Acute Comment: Improved. Qualifiers: Anemia type: due to chronic kidney disease (3) Anemia in chronic kidney disease Onset Date: 09/04/18 Current Visit: Yes Status: Acute (4) Chronic kidney disease Onset Date: 09/04/18 Current Visit: Yes Status: Acute (5) Delirium Current Visit: No Status: Acute - Plan REC: 1) continue PPI therapy 2) monitor H&H serially and transfuse prn 3) small bowel series when patient able 4) physical therapy (increase mobility, and ability to get SBS done) \ 5) outpatient pillcam
--- NOTE | 2018-09-05 17:45 | P.DS ---
Admission Date: 09/03/18 Discharge Date: 09/05/18 Disposition: ROUTINE DISCHARGE Discharge Condition: FAIR Reason for Admission: Altered mental status; anemia - Problems (1) Altered mental status Onset Date: 09/04/18 Status: Acute (2) Anemia Onset Date: 09/04/18 Status: Acute Qualifiers: Anemia type: due to chronic kidney disease Brief History of Present Illness: SHE COULD NOT TELL ME WHYS SHE IS HERE. FOUND HER CONFUSED. SHE DENIES ANY COMPLAINTS. MS DELACRUZ GOT DISORIENTED AFTER ANESTHESIA AND GOT BETTER NOW BACK TO BASELINE. SHE HAS NO STROKE ON MRI. THIS CAN BE RELATED TO ANESTHESIA MEDICATION RELATED ENCEPHALOPATHY. SHE IS STABLE TO BE DISCHARGED ON SAME MEDS. Vital Signs/Physical Exam: Temp Pulse Resp BP Pulse Ox 97.5 F 80 18 108/49 L 100 09/05/18 13:29 09/05/18 13:29 09/05/18 13:29 09/05/18 13:29 09/05/18 13:29 Laboratory Data at Discharge: WBC 4.5 K/uL (4.3-10.9) 09/04/18 04:22 Hgb 8.4 g/dL (12.0-15.0) L 09/04/18 04:22 Hct 25.8 % (36.0-45.0) L 09/04/18 04:22 Plt Count 101 K/uL (152-406) L 09/04/18 04:22 PT 13.0 SECONDS (9.5-12.5) H 09/03/18 04:37 INR 1.11 09/03/18 04:37 APTT 29.2 SECONDS (24.3-36.9) 09/03/18 04:37 Sodium 149 mmol/L (136-145) H 09/03/18 04:37 Potassium 4.2 mmol/L (3.5-5.1) 09/03/18 04:37 BUN 58 mg/dL (7-18) H 09/03/18 04:37 Creatinine 2.51 mg/dL (0.55-1.3) H 09/03/18 04:37 Glucose 106 mg/dL (74-106) 09/03/18 04:37 Magnesium 2.2 mg/dL (1.8-2.4) 09/02/18 22:20 Total Bilirubin 0.3 mg/dL (0.2-1.0) 09/02/18 22:20 AST 13 U/L (15-37) L 09/02/18 22:20 ALT 9 U/L (12-78) L 09/02/18 22:20 Alkaline Phosphatase 75 U/L (45-117) 09/02/18 22:20 Lipase 259 U/L (73-393) 09/02/18 22:20 Home Medications: Adcirca 20mg 2 tab PO BEDTIME 09/03/18 Allopurinol [Zyloprim*] 100 mg PO BEDTIME 09/03/18 Ascorbic Acid [Vitamin C] 500 mg PO DAILY 09/03/18 Aspirin [Aspir-Low] 81 mg PO DAILY 09/03/18 Calcium Carbonate [Calcium] 2 tab PO DAILY 09/03/18 Cholecalciferol (Vitamin D3) [Vitamin D3] 2,000 unit PO DAILY 09/03/18 Cyclosporine [Restasis] 1 drop EACH EYE BID 09/03/18 Divalproex Sodium [Depakote] 1,000 mg PO BEDTIME 09/03/18 Divalproex Sodium [Depakote] 500 mg PO DAILY 09/03/18 Esomeprazole Mag Trihydrate [Nexium] 40 mg PO DAILY 09/03/18 Eszopiclone [Lunesta] 3 mg PO BEDTIME 09/03/18 Furosemide [Lasix] 20 mg PO DAILY PRN 09/03/18 Icosapent Ethyl [Vascepa] 2 cap PO BID 09/03/18 Ipratropium [Atrovent 0.03% (21MCG)/[place] Nasal*] 2 sprays NS TID 09/03/18 L.acidoph,Paracasei, B.lactis [Probiotic] 1 each PO DAILY 09/03/18 Levothyroxine Sodium 100 mcg PO DAILY 09/03/18 Loratadine [Claritin*] 10 mg PO BEDTIME 09/03/18 Multivitamin [Multivitamins] 1 each PO BEDTIME 09/03/18 Nebivolol HCl [Bystolic*] 20 mg PO DAILY 09/03/18 Olopatadine HCl [Patanase] 2 spray NS BID 09/03/18 Rosuvastatin Calcium [Crestor] 40 mg PO BEDTIME 09/03/18 Tolterodine Tartrate [Detrol LA*] 4 mg PO BEDTIME 09/03/18 Tramadol HCl [Ultram] 50 mg PO Q8H PRN 09/03/18 clonazePAM [Klonopin] 0.5 mg PO BEDTIME 09/03/18 Patient Discharge Instructions: FU WITH DR WINTERS FOR IRON INJECTIONS. Diet: ADA Followup: Krishna Rand MD [ACTIVE - CAN ADMIT] - Michael Villegas MD [Primary Care Provider] -
[2018-09-09 05:07] LABS: Albumin, (SPE) 2.9 g/dL (3.8-4.8); Alpha-1-Globulins 0.4 g/dL (0.2-0.3); Alpha-2-Globulins 0.8 g/dL (0.5-0.9); Gamma Globulins 0.7 g/dL (0.8-1.7); INTERPRETATION REPORT
== END 2018-09-05 16:30 | disposition home or self-care (01) | DRG 378 ==
LOC: ER 20:57 → ERHOLD 09-03 01:04 → 4TH 09-03 01:48
PROVIDERS: ADMIT Internal Medicine; ATTEND Internal Medicine
PROC: 0DB78ZX Excision of Stomach, Pylorus, Via Natural or Artificial Opening Endoscopic, Diagnostic (ICD-10-PCS; 2018-09-04)
PROC: 0DB68ZX Excision of Stomach, Via Natural or Artificial Opening Endoscopic, Diagnostic (ICD-10-PCS; principal; 2018-09-04 11:30)
DX: K29.01 Acute gastritis with bleeding (principal); N18.4 Chronic kidney disease, stage 4 (severe); D63.1 Anemia in chronic kidney disease; K25.3 Acute gastric ulcer without hemorrhage or perforation; R41.82 Altered mental status, unspecified; Z88.6 Allergy status to analgesic agent; Z88.5 Allergy status to narcotic agent; E03.9 Hypothyroidism, unspecified; I12.9 Hypertensive chronic kidney disease with stage 1 through stage 4 chronic kidney disease, or unspecified chronic kidney disease; K21.9 Gastro-esophageal reflux disease without esophagitis; E78.5 Hyperlipidemia, unspecified; D69.6 Thrombocytopenia, unspecified; I77.0 Arteriovenous fistula, acquired; F31.9 Bipolar disorder, unspecified
CPT/HCPCS: 36415; 51702; 70450; 70544; 70551; 71045; 72100; 74018; 80048; 80076; 80164; 81003; 82140; 82607; 82668; 82728; 82747; 83540; 83690; 83735; 83880; 84165; 84466; 84484; 85014; 85018; 85025; 85044; 85610; 85652; 85730; 86850; 86900; 86901; 86922; 87086; 87088; 87804; 88305; 88312; 93005; 93880; 95816; 96361; 96374; 96375; 97163; 99283; 99285; C9113; J1940; J2370; J2704; J3411; J7030

== ENCOUNTER 2018-09-08 16:30 | Inpatient (IN) | payer OTHER ==
--- OUTSIDE RECORDS SUMMARY | 2018-09-08 16:54 | XMS REPORT | Clinical Summary ---
:1960 Author Organization [facility] Address [address] [place] [address] Care Team Providers Name Role Phone Michael [...] INFLUENZA VACCINE 04/02/2018 Results Not on fileafter 09/07/2017 Insurance Payer Benefit Plan / Group Subscriber ID Type Phone Address [employer] - [employer] HMO POS QPOS xxxxxxxxx HMO/POS
[2018-09-08 17:49] LABS: Absolute Monocytes 1.1 K/uL (0.1-1.3); Absolute Neutrophil 6.8 K/uL (1.8-8.0); Basophils % 0.2 % (0-1.3); Eosinophils % 0.2 % (0-4.4); Hematocrit 25.4 % (36.0-45.0); MPV 8.3 fL (7.6-11.3); Monocytes % 12.4 % (3.3-12.3)
[2018-09-08 17:50] LABS: Protime INR 1.19
[2018-09-08 18:06] LABS: ALT/SGPT 9 U/L (12-78); AST/SGOT 9 U/L (15-37); Albumin 2.5 g/dL (3.4-5.0); Alkaline Phosphatase 70 U/L (45-117); BUN Blood Urea Nitrogen 57 mg/dL (7-18); Bicarbonate 33 mmol/L (21-32); Bilirubin Direct 0.1 mg/dL (0-0.2); Bilirubin Total 0.2 mg/dL (0.2-1.0); Glucose Level 124 mg/dL (74-106); Magnesium 2.3 mg/dL (1.8-2.4); NT PRO-BNP 8487 pg/mL (<125); Potassium 4.4 mmol/L (3.5-5.1); Protein, Total 5.9 g/dL (6.4-8.2); Sodium Level 149 mmol/L (136-145); Troponin (Emerg Dept Use Only) < 0.02 ng/mL (0.0-0.045)
[2018-09-08] MEDS ORDERED: NA CHLORIDE 0.9% 1,000 ML ONE (19:32)
--- NOTE | 2018-09-08 19:49 | RAD REPORT ---
EXAM DESCRIPTION: RAD - Chest Single View - 09/08/2018 7:25 pm CLINICAL HISTORY: Dyspnea COMPARISON: September 02 TECHNIQUE: AP portable chest image was obtained 1814 hours . FINDINGS: Prominent lung markings noted not substantially different from comparison. Early edema or infiltrate could be masked by the chronic lung disease. Heart size is magnified by portable technique and body habitus. Rotation distorts the mediastinum and heart as well. Vasculature is increased over comparison. Trachea is midline. No measurable pleural effusion and no pneumothorax. No acute bony ab normality seen. No acute aortic findings suspected. IMPRESSION: Suspected mild failure/ volume overload superimposed on chronic interstitial disease.
--- NOTE | 2018-09-08 20:22 | ER ---
Nurse's Notes [facility] Name: Fannie Plunkett Age: 58 yrs Sex: Female : 1960 Arrival Date: 09/08/2018 Time: 16:30 Bed 4 Private MD: Michael Villegas V Diagnosis: Dehydration;Hypotension Presentation: 09/08 16:45 Presenting complaint: Patient states: feeling really weak, tired, I was in here for ch headaches on august 31, was discharged on the third. has scrips for hydrocodone and tramadol, I think was too strong. that was after my fistural sx for dialysis on my R arm. Transition of care: patient was not received from another setting of care. Onset of symptoms was August 31, 2018. Risk Assessment: Do you want to hurt yourself or someone else? Patient reports no desire to harm self or others. Initial Sepsis Screen: Does the patient meet any 2 criteria? No. Patient's initial sepsis screen is negative. Does the patient have a suspected source of infection? No. Patient's initial sepsis screen is negative. 16:45 Method Of Arrival: Wheelchair 16:45 Acuity: MODESTA 2 ch 22:13 Care prior to arrival: None. aj1 Triage Assessment: 16:50 The onset of the patients symptoms was August 31, 2018 at 08:00. Stroke Activation: Physician: Stroke Attending; Name: ; Notified At: ; Arrived At: Physician: Chief Stroke Resident; Name: ; Notified At: ; Arrived At: Physician: Stroke Resident; Name: ; Notified At: ; Arrived At: Physician: ED Attending; Name: ; Notified At: ; Arrived At: Physician: ED Resident; Name: ; Notified At: ; Arrived At: 16:45 not applicable ch Historical: - Allergies: 16:49 Codeine; 16:49 Morphine; 16:49 NSAIDS; 16:49 Tape; - Home Meds: 16:49 Adcirca 20 mg Oral tab 2 tabs nightly [Active]; allopurinol 100 mg Oral tab 1 tab ch nightly [Active]; aspirin 81 mg Oral TbEC 1 tab once daily [Active]; Atrovent 0.06 % Nasal spry 2 sprays 3 times per day [Active]; Bystolic 20 mg Oral tab 1 tab once daily [Active]; calcium carbonate 600 mg (1,500 mg) Oral tab 2 tab daily [Active]; Crestor 40 mg Oral tab 1 tab nightly [Active]; Depakote 500 mg Oral TbEC 1 tab (1 tab in am \T\ 2 tabs in pm) [Active]; Detrol LA 4 mg Oral cp24 1 cap nightly [Active]; Klonopin 0.5 mg Oral tab 1 tab nightly [Active]; Lasix 20 mg Oral tab 1 tab as needed [Active]; levothyroxine 100 mcg tab 1 tab once daily [Active]; Lunesta 3 mg Oral tab 1 tab once daily [Active]; Nexium 40 mg Oral cpDR 1 cap once daily [Active]; Patanase 0.6 % nasal spry 2 sprays 2 times per day [Active]; Restasis 0.05 % ophthalmic dpet 1 drop 2 times per day [Active]; Robaxin 750 mg Oral tab 2 tabs as needed [Active]; tramadol 50 mg Oral tab as needed [Active]; Vascepa 1 gram Oral cap 2 caps 2 times per day [Active]; Vitamin C 500 mg Oral tab 500 mg daily [Active]; Vitamin D3 2,000 unit Oral tab daily [Active]; Zyrtec 10 mg Oral tab 1 tab once daily [Active]; 16:50 Procrit Inj [Active]; ch - PMHx: 16:49 Anemia; Arthritis; bowel obstruction; Depression; GERD; Hyperlipidemia; Hypertension; ch Hypothyroidism; ibs; lymphedema; PAH; Renal Disease; Sleep Apnea; - PSHx: 16:49 fistula on R arm; Hysterectomy; IVC filter; Joint replacement; Hernia repair; ch - Immunization history:: Adult Immunizations up to date, Flu vaccine is not up to date. - Social history:: Smoking status: Patient/guardian denies using tobacco, Patient/guardian denies using alcohol, street drugs. - Ebola Screening: : Patient negative for fever greater than or equal to 101.5 degrees Fahrenheit, and additional compatible Ebola Virus Disease symptoms Patient denies exposure to infectious person. Screenin:15 Abuse screen: Denies threats or abuse. Denies injuries from another. Nutritional aj1 screening: No deficits noted. Tuberculosis screening: No symptoms or risk factors identified. 22:13 Fall Risk No fall in past 12 months (0 pts). No secondary diagnosis (0 pts). IV access aj1 (20 points). Ambulatory Aid- None/Bed Rest/Nurse Assist (0 pts). Gait- Impaired (20 pts.). Mental Status- Oriented to own ability (0 pts). Total Castañeda Fall Scale indicates Low Risk Score (25-44 pts). Fall prevention measures have been instituted. Family Present and informed to notify staff if they need to leave bedside As available Patient and Family Educated on Fall Prevention Program and strategies. Assessment: 17:00 General: Appears uncomfortable, ill, Behavior is calm, cooperative, appropriate for aj1 age. Pain: Complains of pain in face. Neuro: Level of Consciousness is awake, alert, obeys commands, Oriented to person, place, time, situation, Speech is normal, Reports headache generalized weakness. Cardiovascular: Heart tones S1 S2 present Patient's skin is warm and dry. Rhythm is sinus rhythm. Respiratory: Airway is patent Respiratory effort is even, unlabored, Respiratory pattern is regular, symmetrical. GI: No signs and/or symptoms were reported involving the gastrointestinal system. : No signs and/or symptoms were reported regarding the genitourinary system. EENT: No signs and/or symptoms were reported regarding the EENT system. Derm: Skin is pale. Musculoskeletal: No signs and/or symptoms reported regarding the musculoskeletal system. Circulation, motion, and sensation intact. 18:00 Reassessment: Patient appears in no apparent distress at this time. Patient and/or aj1 family updated on plan of care and expected duration. Pain level reassessed. Patient is alert, oriented x 3, equal unlabored respirations, skin warm/dry/pink. Patient's color has improved, no longer appears pale. 19:00 Reassessment: Patient appears in no apparent distress at this time. No changes from aj1 previously documented assessment. Patient and/or family updated on plan of care and expected duration. Pain level reassessed. Patient is alert, oriented x 3, equal unlabored respirations, skin warm/dry/pink. 20:00 Reassessment: Patient and/or family updated on plan of care and expected duration. Pain aj1 level reassessed. General: Appears in no apparent distress. comfortable, Behavior is calm, cooperative, appropriate for age. Neuro: Level of Consciousness is awake, alert, obeys commands, Oriented to person, place, time, situation. Cardiovascular: Heart tones S1 S2 present Patient's skin is warm and dry. Rhythm is sinus rhythm. Respiratory: Airway is patent Respiratory effort is even, unlabored, Respiratory pattern is regular, symmetrical. Derm: Skin is pink, warm \T\ dry. normal. Musculoskeletal: No signs and/or symptoms reported regarding the musculoskeletal system. Circulation, motion, and sensation intact. 21:00 Reassessment: Patient appears in no apparent distress at this time. No changes from 1 previously documented assessment. Patient and/or family updated on plan of care and expected duration. Pain level reassessed. Patient is alert, oriented x 3, equal unlabored respirations, skin warm/dry/pink. 22:00 Reassessment: Patient appears in no apparent distress at this time. No changes from aj1 previously documented assessment. Patient and/or family updated on plan of care and expected duration. Pain level reassessed. Patient is alert, oriented x 3, equal unlabored respirations, skin warm/dry/pink. Vital Signs: 16:50 BP 88 / 36; Pulse 78; Resp 16; Temp 98.7; Pulse Ox 99% on R/A; Weight 99.79 kg; Height ch 5 ft. 3 in. (160.02 cm); Pain 0/10; 17:15 BP 105 / 56; Pulse 84; Resp 18; Pulse Ox 100% ; aj1 18:30 BP 102 / 48 Supine; Pulse 82; Resp 14; Pulse Ox 100% on R/A; aj1 18:32 BP 96 / 79 Sitting; Pulse 84; Resp 20; Pulse Ox 100% ; aj1 18:34 BP 113 / 53; Pulse 92; Resp 18; Pulse Ox 100% on R/A; aj1 19:04 BP 113 / 53; Pulse 81; Resp 18; Pulse Ox 99% on 2 lpm NC; aj1 19:30 BP 97 / 60; Pulse 79; Resp 20; Pulse Ox 100% on NC; aj1 19:48 BP 94 / 62; Pulse 82; Resp 18; Pulse Ox 100% on 2 lpm NC; mt 20:00 BP 95 / 43; Pulse 79; Resp 18; Pulse Ox 100% on NC; aj1 20:30 BP 94 / 54; Pulse 77; Resp 20; Pulse Ox 100% on R/A; aj1 21:00 BP 104 / 47; Pulse 78; Resp 20; Pulse Ox 100% on NC; aj1 21:30 BP 105 / 40; Pulse 75; Resp 20; Pulse Ox 100% on NC; aj1 22:00 BP 95 / 44; Pulse 76; Resp 20; Pulse Ox 100% on R/A; aj1 16:50 Body Mass Index 38.97 (99.79 kg, 160.02 cm) ED Course: 16:30 Patient arrived in ED. as 16:33 Michael Villegas MD is Private Physician. as 16:47 Triage completed. 16:51 Arm band placed on left wrist. Patient placed in an exam room, on a stretcher. 16:54 Gustavo Joiner PA is PHCP. jr8 16:55 Joe Figueroa MD is Attending Physician. jr8 17:15 Patient has correct armband on for positive identification. Bed in low position. Call aj1 light in reach. Side rails up X 1. extension work instructor on. Pulse ox on. NIBP on. 17:15 No provider procedures requiring assistance completed. aj1 17:27 Debbi Rivera RN is Primary Nurse. aj1 19:26 XRAY Chest (1 view) In Process Unspecified. EDMS 20:14 Michael Villegas MD is Hospitalizing Provider. jr8 22:00 IV 18 g L EJ placed during previous shift. tl2 22:20 Report given to MARC Baird. aj1 23:04 Patient admitted, IV remains in place. tl2 Administered Medications: 19:25 Drug: NS 0.9% 500 ml Route: IV; Rate: 1000 ml; Site: left jugular; aj1 20:27 Drug: NS 0.9% 500 ml Route: IV; Rate: 1000 ml; Site: left jugular; aj1 22:19 Follow up: IV Status: Completed infusion; IV Intake: 1000ml aj1 Intake: 22:19 IV: 1000ml; Total: 1000ml. aj1 Outcome: 20:21 Decision to Hospitalize by Provider. jr8 23:02 Admitted to Tele accompanied by tech, family with patient, via wheelchair, room 428, tl2 with chart, Report called to MARC Dillon 23:02 Condition: stable 23:02 Discharge instructions given to patient, family, Instructed on the need for admit. 23:05 Patient left the ED. tl2 Signatures: Dispatcher [employer] EDSC Yulia Ohara RN RN Debbi Finn RN RN aj1 Daylin Conte Josh, PA PA jr8 Brie Zapien RN RN tl2 Terri Peterson ne Corrections: (The following items were deleted from the chart) 19:49 19:48 BP 94 / 62; Pulse 82bpm; Resp 18bpm; Pulse Ox 100% RA; mt mt
--- NOTE | 2018-09-08 20:22 | EDPHYS ---
Physician Documentation [facility] Name: Fannie Plunkett Age: 58 yrs Sex: Female : 1960 Arrival Date: 09/08/2018 Time: 16:30 Bed 4 Private MD: Michael Villegas V ED Physician Joe Figueroa HPI: 09/08 20:06 This 58 yrs old Female presents to ER via Wheelchair with complaints of jr8 Weakness, Headache. 20:06 Patient had weakness for the past month. Stated that it is getting worse. Hypotensive jr8 upon arrival. Denies any other symptoms . Severity of symptoms: At their worst the symptoms were moderate in the emergency department the symptoms are unchanged. It is unknown whether or not the patient has had similar symptoms in the past. The patient has not recently seen a physician. Historical: - Allergies: 16:49 Codeine; ch 16:49 Morphine; ch 16:49 NSAIDS; ch 16:49 Tape; ch - Home Meds: 16:49 Adcirca 20 mg Oral tab 2 tabs nightly [Active]; allopurinol 100 mg Oral tab 1 tab ch nightly [Active]; aspirin 81 mg Oral TbEC 1 tab once daily [Active]; Atrovent 0.06 % Nasal spry 2 sprays 3 times per day [Active]; Bystolic 20 mg Oral tab 1 tab once daily [Active]; calcium carbonate 600 mg (1,500 mg) Oral tab 2 tab daily [Active]; Crestor 40 mg Oral tab 1 tab nightly [Active]; Depakote 500 mg Oral TbEC 1 tab (1 tab in am \T\ 2 tabs in pm) [Active]; Detrol LA 4 mg Oral cp24 1 cap nightly [Active]; Klonopin 0.5 mg Oral tab 1 tab nightly [Active]; Lasix 20 mg Oral tab 1 tab as needed [Active]; levothyroxine 100 mcg tab 1 tab once daily [Active]; Lunesta 3 mg Oral tab 1 tab once daily [Active]; Nexium 40 mg Oral cpDR 1 cap once daily [Active]; Patanase 0.6 % nasal spry 2 sprays 2 times per day [Active]; Restasis 0.05 % ophthalmic dpet 1 drop 2 times per day [Active]; Robaxin 750 mg Oral tab 2 tabs as needed [Active]; tramadol 50 mg Oral tab as needed [Active]; Vascepa 1 gram Oral cap 2 caps 2 times per day [Active]; Vitamin C 500 mg Oral tab 500 mg daily [Active]; Vitamin D3 2,000 unit Oral tab daily [Active]; Zyrtec 10 mg Oral tab 1 tab once daily [Active]; 16:50 Procrit Inj [Active]; ch - PMHx: 16:49 Anemia; Arthritis; bowel obstruction; Depression; GERD; Hyperlipidemia; Hypertension; ch Hypothyroidism; ibs; lymphedema; PAH; Renal Disease; Sleep Apnea; - PSHx: 16:49 fistula on R arm; Hysterectomy; IVC filter; Joint replacement; Hernia repair; ch - Immunization history:: Adult Immunizations up to date, Flu vaccine is not up to date. - Social history:: Smoking status: Patient/guardian denies using tobacco, Patient/guardian denies using alcohol, street drugs. - Ebola Screening: : Patient negative for fever greater than or equal to 101.5 degrees Fahrenheit, and additional compatible Ebola Virus Disease symptoms Patient denies exposure to infectious person. ROS: 20:06 Eyes: Negative for injury, pain, redness, and discharge, ENT: Negative for injury, jr8 pain, and discharge, Neck: Negative for injury, pain, and swelling, Cardiovascular: Negative for chest pain, palpitations, and edema, Respiratory: Negative for shortness of breath, cough, wheezing, and pleuritic chest pain, Abdomen/GI: Negative for abdominal pain, nausea, vomiting, diarrhea, and constipation, Back: Negative for injury and pain, MS/Extremity: Negative for injury and deformity, Skin: Negative for injury, rash, and discoloration, Neuro: Negative for headache, weakness, numbness, tingling, and seizure. 20:06 Constitutional: Positive for fatigue. Exam: 20:06 Eyes: Pupils equal round and reactive to light, extra-ocular motions intact. Lids and jr8 lashes normal. Conjunctiva and sclera are non-icteric and not injected. Cornea within normal limits. Periorbital areas with no swelling, redness, or edema. ENT: Nares patent. No nasal discharge, no septal abnormalities noted. Tympanic membranes are normal and external auditory canals are clear. Oropharynx with no redness, swelling, or masses, exudates, or evidence of obstruction, uvula midline. Mucous membranes dry. Neck: Trachea midline, no thyromegaly or masses palpated, and no cervical lymphadenopathy. Supple, full range of motion without nuchal rigidity, or vertebral point tenderness. No Meningismus. Cardiovascular: Regular rate and rhythm with a normal S1 and S2. No gallops, murmurs, or rubs. Normal PMI, no JVD. No pulse deficits. Respiratory: Lungs have equal breath sounds bilaterally, clear to auscultation and percussion. No rales, rhonchi or wheezes noted. No increased work of breathing, no retractions or nasal flaring. Abdomen/GI: Soft, non-tender, with normal bowel sounds. No distension or tympany. No guarding or rebound. No evidence of tenderness throughout. Back: No spinal tenderness. No costovertebral tenderness. Full range of motion. Skin: Warm, dry with normal turgor. Normal color with no rashes, no lesions, and no evidence of cellulitis. MS/ Extremity: Pulses equal, no cyanosis. Neurovascular intact. Full, normal range of motion. Neuro: Awake and alert, GCS 15, oriented to person, place, time, and situation. Cranial nerves II-XII grossly intact. Motor strength 5/5 in all extremities. Sensory grossly intact. Cerebellar exam normal. Normal gait. Vital Signs: 16:50 BP 88 / 36; Pulse 78; Resp 16; Temp 98.7; Pulse Ox 99% on R/A; Weight 99.79 kg; Height ch 5 ft. 3 in. (160.02 cm); Pain 0/10; 17:15 BP 105 / 56; Pulse 84; Resp 18; Pulse Ox 100% ; aj1 18:30 BP 102 / 48 Supine; Pulse 82; Resp 14; Pulse Ox 100% on R/A; aj1 18:32 BP 96 / 79 Sitting; Pulse 84; Resp 20; Pulse Ox 100% ; aj1 18:34 BP 113 / 53; Pulse 92; Resp 18; Pulse Ox 100% on R/A; aj1 19:04 BP 113 / 53; Pulse 81; Resp 18; Pulse Ox 99% on 2 lpm NC; aj1 19:30 BP 97 / 60; Pulse 79; Resp 20; Pulse Ox 100% on NC; aj1 19:48 BP 94 / 62; Pulse 82; Resp 18; Pulse Ox 100% on 2 lpm NC; mt 20:00 BP 95 / 43; Pulse 79; Resp 18; Pulse Ox 100% on NC; aj1 20:30 BP 94 / 54; Pulse 77; Resp 20; Pulse Ox 100% on R/A; aj1 21:00 BP 104 / 47; Pulse 78; Resp 20; Pulse Ox 100% on NC; aj1 21:30 BP 105 / 40; Pulse 75; Resp 20; Pulse Ox 100% on NC; aj1 22:00 BP 95 / 44; Pulse 76; Resp 20; Pulse Ox 100% on R/A; aj1 16:50 Body Mass Index 38.97 (99.79 kg, 160.02 cm) ch MDM: 17:00 Patient medically screened. [facility] 20:06 Data reviewed: vital signs, nurses notes, lab test result(s), EKG, radiologic studies, [facility] plain films. Data interpreted: Pulse oximetry: on 2L(s) per nasal canula, is 100 %. Interpretation: normal. Counseling: I had a detailed discussion with the patient and/or guardian regarding: the historical points, exam findings, and any diagnostic results supporting the discharge/admit diagnosis, lab results, radiology results, the need for further work-up and treatment in the hospital. ED course: Patient with worsening of labs compared to past. Clinically dehydrated and shows it on labs as well. Still remains to be hypotensive . 09/08 17:17 Order name: Basic Metabolic Panel; Complete Time: 18:16 09/08 17:17 Order name: CBC with Diff; Complete Time: 18:16 [facility] 09/08 17:17 Order name: LFT's; Complete Time: 18:16 09/08 17:17 Order name: Magnesium; Complete Time: 18:16 09/08 17:17 Order name: NT PRO-BNP; Complete Time: 18:16 09/08 17:17 Order name: PT-INR; Complete Time: 18:16 09/08 17:17 Order name: Troponin (emerg Dept Use Only); Complete Time: 18:16 09/08 17:17 Order name: XRAY Chest (1 view); Complete Time: 19:57 [facility] 09/08 17:17 Order name: EKG; Complete Time: 17:18 09/08 17:17 Order name: TSH; Complete Time: 18:16 jr8 09/08 17:17 Order name: T4 Free; Complete Time: 18:16 jr8 09/08 17:19 Order name: TS; Complete Time: 19:57 jr8 09/08 22:29 Order name: CONS Physician Consult [facility] 09/08 17:17 Order name: Cardiac monitoring; Complete Time: 17:27 8 09/08 17:17 Order name: EKG - Nurse/Tech; Complete Time: 17:51 [facility] 09/08 17:17 Order name: IV Saline Lock; Complete Time: 17:27 jr8 09/08 17:17 Order name: Labs collected and sent; Complete Time: 17:27 jr8 09/08 17:17 Order name: O2 Per Protocol; Complete Time: 17:28 [facility] 09/08 17:17 Order name: O2 Sat Monitoring; Complete Time: 17:36 [facility] 09/08 17:33 Order name: Orthostatic Blood Pressure; Complete Time: 19:14 jr Administered Medications: 19:25 Drug: NS 0.9% 500 ml Route: IV; Rate: 1000 ml; Site: left jugular; aj1 20:27 Drug: NS 0.9% 500 ml Route: IV; Rate: 1000 ml; Site: left jugular; aj1 22:19 Follow up: IV Status: Completed infusion; IV Intake: 1000ml aj1 Disposition: 09/08/18 20:21 Hospitalization ordered by Michael Villegas for Observation. Preliminary diagnosis are Dehydration, Hypotension. - Bed requested for Telemetry/MedSurg (observation). - Status is Observation. tl2 - Condition is Stable. - Problem is new. - Symptoms have improved. UTI on Admission? No Addendum: 09/10/2018 09:32 Co-signature as Attending Physician, Joe Figueroa MD I agree with the assessment and c bueno plan of care. Signatures: Dispatcher [employer] [facility] Yulia Ohara RN RN ch Johnson, Angela, RN RN aj1 Meg Cassidy RN RN kl Anderson, Corey, MD MD cha Roszak, Josh, PA PA jr8 Brie Zapien RN RN tl2 Corrections: (The following items were deleted from the chart) 09/08 22:43 20:21 Hospitalization Ordered by Michael Villegas MD for Observation. Preliminary diagnosis kl is Dehydration; Hypotension. Bed requested for Telemetry/MedSurg (observation). Status is Observation. Condition is Stable. Problem is new. Symptoms have improved. UTI on Admission? No. jr8 23:05 22:43 09/08/2018 20:21 Hospitalization Ordered by Michael Villegas MD for Observation. tl2 Preliminary diagnosis is Dehydration; Hypotension. Bed requested for Telemetry/MedSurg (observation). Status is Observation. Condition is Stable. Problem is new. Symptoms have improved. UTI on Admission? No. kl
[2018-09-08] MEDS ORDERED: ONDANSETRON 4 MG/2 ML VIAL IV PRN (23:27)
[2018-09-08] MEDS ORDERED: NA CHLORIDE 0.9% 1,000 ML IV SCH (23:27)
[2018-09-09] MEDS: ACETAMINOPHEN 500 MG TAB PO PRN ×2 (00:38→09:48)
--- NOTE | 2018-09-09 05:55 | EKG ---
Test Date: 2018-09-08 Test Time: 17:41:32 Car Scrubber: MEASUREMENT RESULTS: Intervals: Rate: 83 NH: 148 QRSD: 108 QT: 378 QTc: 444 [place]: P: 49 NH: 148 QRS: 34 T: 41 INTERPRETIVE STATEMENTS: Normal sinus rhythm Normal ECG Compared to ECG 09/02/2018 21:14:36 ST (T wave) deviation no longer present Electronically Signed On 09-09-18 05:54:34 CDT by Khang Salmeron
[2018-09-09 07:06] LABS: Absolute Monocytes 0.8 K/uL (0.1-1.3); Absolute Neutrophil 4.4 K/uL (1.8-8.0); Basophils % 0.4 % (0-1.3); Eosinophils % 0.8 % (0-4.4); Hematocrit 25.3 % (36.0-45.0); Lymphocytes % 15.8 % (15.3-44.8); MPV 8.1 fL (7.6-11.3); Monocytes % 12.1 % (3.3-12.3); Potassium 4.8 mmol/L (3.5-5.1); RBC Red Blood Cell Count 2.59 M/uL (3.86-4.86)
[2018-09-09 10:34] LABS: Urine White Blood Cell Casts OK
[2018-09-09 10:35] LABS: Anisocytosis 1+; Basophilic Stippling 2+; Blood Morphology Comment NOTED (NOT SEEN); Platelet Estimate DECR
[2018-09-09] MEDS ORDERED: EPOETIN ALFA 20,000 UNIT/1 ML VIAL SQ ONE (12:00)
[2018-09-09] MEDS ORDERED: FUROSEMIDE 40 MG in NA CHLORIDE 0.9% 50 ML IV SCH (13:00)
[2018-09-09] MEDS ORDERED: IPRATROPIUM NS SCH (14:00)
[2018-09-09] MEDS: VITAMIN D 1000 UNIT TAB PO SCH (14:11)
[2018-09-09] MEDS: SOD FERRIC GLUC COMPLX/SUCROSE 250 MG in NA CHLORIDE 0.9% 250 ML IV SCH (14:12)
--- NOTE | 2018-09-09 14:21 | P.HP ---
Certification for Inpatient Patient admitted to: Inpatient With expected LOS: >2 Midnights Practitioner: I am a practitioner with admitting privileges, knowledge of patient current condition, hospital course, and medical plan of care. Services: Services provided to patient in accordance with Admission requirements found in Title 42 Section 412.3 of the Code of Federal Regulations Patient History Date of Service: 09/09/18 Reason for admission: I AM NOT FEELING GOOD. History of Present Illness: SHE HAS FELT WEAKER AND HAS MORE DYSPNEA LATELY. SHE IS MORBIDLY OBESE LADY WITH PULMONARY ARTERIAL HYPERTENSION BY HISTORY MANAGED WITH ADCIRCA, GRADUALLY GETTING WORSE. SHE COMES BACK TO HOSPITAL WITH NOT FEELING WELL. SHE HAS NO CHEST PAIN BUT HAS MILD TACHYPNEA. Allergies codeine [Codeine] Allergy (Mild, Verified 09/03/18 03:33) Itching morphine Adverse Reaction (Severe, Verified 09/03/18 03:33) Decreased blood pressure NSAIDS (Non-Steroidal Anti-Inflamma Adverse Reaction (Intermediate, Verified 10/19 03:33) kidney insufficiency Tape Allergy (Uncoded 07/05/18 10:37) Unknown Home Medications: Adcirca 20mg 2 tab PO BEDTIME 09/03/18 Allopurinol [Zyloprim*] 100 mg PO BEDTIME 09/03/18 Ascorbic Acid [Vitamin C] 500 mg PO DAILY 09/03/18 Aspirin [Aspir-Low] 81 mg PO DAILY 09/03/18 Calcium Carbonate [Calcium] 2 tab PO DAILY 09/03/18 Cholecalciferol (Vitamin D3) [Vitamin D3] 2,000 unit PO DAILY 09/03/18 Cyclosporine [Restasis] 1 drop EACH EYE BID 09/03/18 Divalproex Sodium [Depakote] 1,000 mg PO BEDTIME 09/03/18 Divalproex Sodium [Depakote] 500 mg PO DAILY 09/03/18 Esomeprazole Mag Trihydrate [Nexium] 40 mg PO DAILY 09/03/18 Eszopiclone [Lunesta] 3 mg PO BEDTIME 09/03/18 Icosapent Ethyl [Vascepa] 2 cap PO BID 09/03/18 Ipratropium [Atrovent 0.03% (21MCG)/[place] Nasal*] 2 sprays NS TID 09/03/18 L.acidoph,Paracasei, B.lactis [Probiotic] 1 each PO DAILY 09/03/18 Levothyroxine Sodium 100 mcg PO DAILY 09/03/18 Loratadine [Claritin*] 10 mg PO BEDTIME 09/03/18 Multivitamin [Multivitamins] 1 each PO BEDTIME 09/03/18 Nebivolol HCl [Bystolic*] 20 mg PO DAILY 09/03/18 Olopatadine HCl [Patanase] 2 spray NS BID 09/03/18 Rosuvastatin Calcium [Crestor] 40 mg PO BEDTIME 09/03/18 Tolterodine Tartrate [Detrol LA*] 4 mg PO BEDTIME 09/03/18 Tramadol HCl [Ultram] 50 mg PO Q8H PRN 09/03/18 clonazePAM [Klonopin] 0.5 mg PO BEDTIME 09/03/18 - Past Medical/Surgical History Has patient received pneumonia vaccine in the past: Yes Diabetic: No -: sleep apnea -: IBS/GERD -: Hypothyroidism -: ANEMIA -: Pulmonary HTN -: back pain/ pinch nerves -: CKD, seasonal allergies -: HTN -: DVT -: hypertriglyceridemia -: hyperlipidemia -: lymphedema -: Hysterectomy -: Hernia repair -: Knee SX -: colon resection -: back Sx, Sciatica -: cyst removed from forehead x2 -: breast biopsy x2 -: fistula PAULINA - Family History Mother -: Hypertension, Blood disorders - Social History Smoking Status: Never smoker Alcohol use: No CD- Drugs: No Caffeine use: No Place of Residence: Home Review of Systems 10-point ROS is otherwise unremarkable General: Weakness, Malaise Respiratory: Shortness of Breath Physical Examination - Vital Signs Temperature: 97.6 F Blood Pressure: 128/57 Pulse: 81 Respirations: 16 Pulse Ox (%): 97 - Physical Exam General: Alert, Mild distress, Obese HEENT: Atraumatic, PERRLA, Mucous membr. moist/pink, EOMI, Sclerae nonicteric Neck: Supple, 2+ carotid pulse no bruit, No LAD, Without JVD or thyroid abnormality Respiratory: Diminished Cardiovascular: Regular rate/rhythm, Normal S1 S2 Gastrointestinal: Normal bowel sounds, No tenderness Musculoskeletal: No tenderness Integumentary: No rashes Neurological: Normal gait, Normal speech, Normal strength at 5/5 x4 extr, Normal tone, Normal affect Lymphatics: No axilla or inguinal lymphadenopathy - Studies Laboratory Data (last 24 hrs) 09/08/18 17:15: PT 14.0 H, INR 1.19 09/08/18 17:15: WBC 8.9 D, Hgb 8.3 L, Hct 25.4 L, Plt Count 96 L 09/08/18 17:15: Sodium 149 H, Potassium 4.4, BUN 57 H, Creatinine 2.74 H, Glucose 124 H, Magnesium 2.3, Total Bilirubin 0.2, AST 9 L, ALT 9 L, Alkaline Phosphatase 70 Assessment and Plan - Problems (Diagnosis) (1) Dyspnea Current Visit: Yes Status: Suspected Plan: CLINICALLY SHE HAS DRY MUCOUS MEMBRANES BUT SHE IS DYSPNEIC. I BELIEVE THIS CAN BE FROM HYPERCAPNEA AND REDUCED BREATH SOUNDS FROM OBESITY. SHE HAS SEVERE PULMONARY HTN THAT IS GETTING WORSE. DR. WINTERS IS GIVING LASIX DRIP HE THINKS THERE MAY BE SOME FLUID OVERLOAD PER X. RAY. PROGNOSIS IS POOR. I TALKED TO . CARMINE ASKED IF SHE SHOULD GO TO [place]. I TOLD HER AND THAT [facility] MAY NOT MAKE ANY DIFFERENCE IN HER CONDITION AND SHE WILL CONTINUE TO FEEL BAD. STILL IF THEY WANT I WILL TRANSFER HER. HE WILL LET ME KNOW. (2) Acute on chronic renal failure Onset Date: 09/18/17 Current Visit: No Status: Chronic Plan: WORSE GRADAULLY. GENTLE HYDRATION IMPROVED CREATININE OVERNIGHT. (3) Anemia in chronic kidney disease Onset Date: 09/04/18 Current Visit: No Status: Acute (4) Thrombocytopenia Onset Date: 09/04/18 Current Visit: No Status: Chronic Plan: MORBID OBEISTY , FATTY LIVER CAN GIVE RISE TO CIRRHOSIS OVERTIME AND SO THROMBOCYTOPENIA. WILL WATCH DAILY. SHE IS NOT A CANDIDATE FOR ANY INVASIVE TESTS LIKE BONE MARROW BIOPSY. SHE HAS RENAL FAILURE AND LOW PLATELETS. WILL RULE OUT A REMOTE POSSIBILITY OF HUS OR TTP. ORDER HAPTOGLOBULIN, LDH AND SMEAR. (5) Pulmonary HTN Onset Date: 11/23/17 Current Visit: No Status: Chronic Plan: SEVERE, WORSE GRADUALLY. HAS BEEN ON MEDS FOR LONG TIME. DISCUSSED POOR PROGNOSIS WITH AND HE UNDERSTANDS THIS IS RAPID DECLINE IN HER CONDITION. (6) Pickwickian syndrome Current Visit: Yes Status: Chronic Plan: OBESITY INDUCED HYPOVENTILATION SYNDROME. SEVERE HYPERCAPNEA. IN THE PAST I HAVE ASKED HER TO WATCH DIET AND LOSE WEIGHT. SHE TOLD ME A FEW WEEKS AGO THAT SHE WILL BE OBESE AND SHE DOES NOT LIKE ME TO REMIND HER TO WATCH DIET. SHE NOW IS TO A STAGE THAT SHE OVERALL WILL NOT DO WELL. - Advance Directives Does patient have a Living Will: Yes Does patient have a Durable POA for Healthcare: Yes
[2018-09-09 15:47] LABS: Arterial Blood Carboxyhemoglob 1.8 % (0-1.5); Blood Gas Oxyhemoglobin 86.6 % (94-97); Blood O2 Saturation 88.9 % (92-98.5)
[2018-09-09 16:03] LABS: Urine Appearance CLEAR; Urine Bilirubin NEGATIVE (NEG); Urine Blood 2+ (NEG); Urine Color YELLOW; Urine Glucose NEGATIVE (NEG); Urine Protein NEGATIVE (NEG); Urine Specific Gravity <=1.005 (1.005-1.030); Urine Urobilinogen 0.2 mg/dL (0.2-1.0); Urine pH 5.5 (5.0-7.0)
[2018-09-09 16:22] LABS: Urine Bacteria 20-50 /HPF (<20); Urine Culture Reflex Order REFLEXED
[2018-09-09] MEDS: ICOSAPENT ETHYL 1 GM CAP PO SCH (17:00)
--- NOTE | 2018-09-09 17:32 | CON ---
Date of Consultation: 09/09/2018 Additional Consulting Physician: Michael Villegas MD Reason For Consultation: Elevated BUN and creatinine, fluid over volume, fluid management. History Of Present Illness: This is a pleasant 58-year-old female, well known to me from the office with significant past medical history of chronic kidney disease stage 4, advanced; hypertension; hypo thyroidism; hyperlipidemia; pulmonary hypertension; obstructive sleep apnea; bipolar, recently her ki dney function started to deteriorate, AV fistula was placed recently, still not mature. The patient recently admitted to the hospital 1 week ago with shortness of breath, symptomatic anemia, at that ti me, received a transfusion workup with GI and discharged. The patient had supposed to receive IV iro n, but apparently could not get any IV access, for that reason, the patient was trying to get a centr al line to start IV iron and continue on Epogen. Apparently, the patient started having tiredness an d shortness of breath, for that reason, reported to the emergency room. In the emergency room, found to have hemoglobin down to the 8 from 9 when she was discharged. For that reason, was admitted over the night. The patient received IV fluid on admission because her blood pressure was marginal. The patient started to have shortness of breath. For that reason, we have been consulted. Kidney funct ion has been the same. The patient denied any chest pain. No fever or chills. Past Medical History: As I mentioned above. 1.Hypothyroidism. 2.Hypertension. 3.Chronic kidney disease, stage 4. 4.Hyperlipidemia. 5.Jerk. 6.Pulmonary hypertension. 7.Obstructive sleep apnea. Family History: Positive for hypertension and blood disorder. Social History: Denies smoking, denies drinking, denies drugs abuse. Past Surgical History: Includes: 1.AV fistula. 2.EGD. Review of Systems: Head and Neck: No red eye. No ear pain. GI: No black stool. No melena. : No polyuria. No dysuria. No hematuria. Forcer Maker: No vaginal discharge. Respiratory: Has shortness of breath. Cardiovascular: Has chest tightness. Endocrine: No polydipsia. Skin: No rash. Neuro: No neuropathy. Musculoskeletal: Generalized fatigue. Home Medications: Include clonazepam, tramadol, Detrol, rosuvastatin, Patanase, Bystolic, multivitam in, levothyroxine, Lunesta, Depakote, eyedrops, cholecalciferol, aspirin. Current Medications In The Hospital: Include allopurinol, aspirin, clonazepam, Depakote, vitamin D, levothyroxine, Bystolic, Zofran, tramadol, IV fluid. Allergies: TO CODEINE, MORPHINE, NONSTEROID. Physical Examination: Vital Signs: When I saw the patient, blood pressure of 106/54, pulse of 78, afebrile. Chest: Crackles bilateral with wheezing. Heart: S1, S2. Systolic murmur. Abdomen: Soft, nontender. Extremities: +1 edema. Neuro: Alert, oriented. No focal. No tremor. Laboratory Data: WBC 6.2, H and H 8.2/25.3, platelet of 87. Sodium 150, potassium 4.8, bicarb 31, B UN 56, creatinine 2.5, GFR down to 19, calcium 8.5. TSAT of 12.4. Chest x-ray, cardiomegaly with co ngestion. Assessment And Plan: 1.Chronic kidney disease, stable on baseline, but over volume with marginal blood pressure. I am go ing to go ahead and discontinue IV fluid. Start the patient on Lasix. We will give it as a piggybac k to establish better urine output and we will monitor. If the patient does not tolerate it, I am go ing to switch her to Lasix drip. We will have the patient on daily weight and strict I's and O's. W e will move the patient to ICU for close monitoring and we will follow up. 2.Hypertension, currently hypotension with picture of over volume. I am going to start aggressive d iuresis for the patient and we will start Lasix drip and move to ICU. First set of cardiac enzyme wa s negative. We will follow up with the primary. 3.Symptomatic anemia. Start the patient on IV iron and start the patient on Epogen and we will foll ow up. 4.Diabetes, as by primary. Case discussed with the patient in the presence of the , agreed o n the plan. Verbalized understanding. Discussed with the staff. Again, the patient is going to be moved to ICU. MEGAN/HAYLIE Voice ID: [id number] Report ID: [id number]
[2018-09-09] MEDS: FUROSEMIDE 100 MG in NA CHLORIDE 0.9% 90 ML IV SCH (17:44)
[2018-09-09 18:27] LABS: Blood Gas Oxyhemoglobin 89.2 % (94-97); Blood O2 Saturation 91.8 % (92-98.5)
[2018-09-09] MEDS ORDERED: ADCIRCA 20 MG PO SCH (21:00)
[2018-09-09] MEDS ORDERED: HOME MED 1 EA UNK (Eszopiclone [Lunesta] 3 MG) PO SCH (21:00)
[2018-09-09] MEDS ORDERED: HOME MED 1 EA UNK (Cyclosporine [Restasis] 1 DROP) EACH EYE SCH (21:00)
[2018-09-09] MEDS ORDERED: HOME MED 1 EA UNK (Rosuvastatin Calcium [Crestor] 40 MG) PO SCH (21:00)
[2018-09-09] MEDS ORDERED: OLOPATADINE HCL NS SCH (21:00)
[2018-09-09] MEDS ORDERED: HOME MED 1 EA UNK (Multivitamin [Multivitamins] 1 EACH) PO SCH (21:00)
[2018-09-09] MEDS ORDERED: FUROSEMIDE 40 MG/4 ML VIAL IV SCH (21:00)
[2018-09-09] MEDS: ROSUVASTATIN 10 MG TAB PO SCH (21:01)
[2018-09-09] MEDS: DIVALPROEX DR 500MG TAB PO SCH (21:02)
[2018-09-09] MEDS: LORATADINE 10 MG TAB PO SCH (21:02)
[2018-09-09] MEDS: TOLTERODINE LA 4 MG CAP PO SCH (21:02)
[2018-09-09] MEDS: ALLOPURINOL 100 MG TAB PO SCH (21:03)
[2018-09-09] MEDS: clonazePAM 0.5 MG TAB PO SCH (21:03)
--- NOTE | 2018-09-10 01:31 | CON ---
Date of Consultation: 09/09/2018 Reason For Consult: Central line placement. History Of Present Illness: This is the case of a 58-year-old patient with multiple medical problems admitted to the ICU with history of chest pain. The patient has history of pulmonary hypertension. She has a recently placed AV fistula in the right arm. She has history of a [place] filter place ment, history of the right leg clots as per patient. She has a left neck with a line placed in. Mary Ellen arently, the PICC line cannot be placed and evaluation for central line is requested. Review of Systems: Currently in the ICU on a CPAP machine. Gastrointestinal: Denies any nausea vomiting. Hematological: As above. Medications: Include aspirin. Allergies: CODEINE, MORPHINE, NSAIDS. Social History: She does not smoke. She does drink alcohol. Past Surgical History: Include breast biopsies, fistula as above, back surgery, colon resection, kne e surgery, hernia repair, hysterectomy. Past Medical History: As above. Once again sleep apnea, pulmonary hypertension, hypothyroidism, mor bid obesity, lymphedema, renal insufficiency. Family History: Hypertension. Assessment And Plan: This is a female with multiple medical problems receiving now IV therapy. The e valuation for central line was requested. This is a high-risk patient. I discussed the case with the patient. Obviously, she is having a difficult time to deal with just this at bedside. I also will like to have fluoroscopy and ultrasonography. This patient has multiple lines. I cannot use the righ t femoral as there is history of deep venous thromboses. Left femoral only for emergencies. The pat ient has a [place] filter. Right subclavian cannot be used because they already have AV fistula. Left neck, the patient has EJ line in that area. Only left is left subclavian. She is morbidly obe se making that difficult case. So in the next few hours, we are going to bring down to Surgery and w e are going to do this patient under some sedation since she is anxious to know even about the centra l line. The benefits, alternatives and risks were explained to the patient, which include but are no t limited to infection, bleeding, damage to adjacent structures, anesthesia complication, pneumothora x hemothorax, deep vein thrombosis, myocardial infarction and even . She also understands this may not relieve the symptoms. She might need more than one surgical intervention. She understood an d she will sign a consent. KACY/HAYLIE Voice ID: [id number] Report ID: [id number]
[2018-09-10] MEDS: FUROSEMIDE 100 MG in NA CHLORIDE 0.9% 90 ML IV SCH ×2 (03:00→14:00)
[2018-09-10 04:47] LABS: Absolute Lymphocytes (CBC) 0.9 K/uL (0.7-4.9); Absolute Monocytes 0.7 K/uL (0.1-1.3); Absolute Neutrophil 4.5 K/uL (1.8-8.0); Basophils % 0.3 % (0-1.3); Eosinophils % 0.7 % (0-4.4); Hematocrit 24.8 % (36.0-45.0); Lymphocytes % 14.2 % (15.3-44.8); MPV 8.4 fL (7.6-11.3); Monocytes % 11.2 % (3.3-12.3); RBC Red Blood Cell Count 2.59 M/uL (3.86-4.86)
[2018-09-10 04:56] LABS: Albumin 2.3 g/dL (3.4-5.0); Phosphorus 2.8 mg/dL (2.5-4.9); Potassium 4.2 mmol/L (3.5-5.1)
[2018-09-10 05:17] LABS: Blood Morphology Comment NOT SEEN (NOT SEEN); Platelet Estimate DECR
[2018-09-10 05:24] VITALS: BMI 35.4
[2018-09-10] MEDS: LEVOTHYROXINE SOD 0.1 MG TAB PO SCH (05:54)
[2018-09-10] MEDS: ICOSAPENT ETHYL 1 GM CAP PO SCH ×2 (08:00→16:22)
--- NOTE | 2018-09-10 08:24 | P.CNS ---
Date of Consult: 09/10/18 Chief Complaint: Respiratory failure History of Present Illness: Patient is 58 years of age admitted with weakness and headache transfer to the ICU hypoxic hypercapnic currently on a BiPAP history of pulmonary hypertension she has been followed up at [facility] responsive cooperative Allergies codeine [Codeine] Allergy (Mild, Verified 09/03/18 03:33) Itching morphine Adverse Reaction (Severe, Verified 09/03/18 03:33) Decreased blood pressure NSAIDS (Non-Steroidal Anti-Inflamma Adverse Reaction (Intermediate, Verified 10/19 03:33) kidney insufficiency Tape Allergy (Uncoded 07/05/18 10:37) Unknown Home Medications: Adcirca 20mg 2 tab PO BEDTIME 09/03/18 Allopurinol [Zyloprim*] 100 mg PO BEDTIME 09/03/18 Ascorbic Acid [Vitamin C] 500 mg PO DAILY 09/03/18 Aspirin [Aspir-Low] 81 mg PO DAILY 09/03/18 Calcium Carbonate [Calcium] 2 tab PO DAILY 09/03/18 Cholecalciferol (Vitamin D3) [Vitamin D3] 2,000 unit PO DAILY 09/03/18 Cyclosporine [Restasis] 1 drop EACH EYE BID 09/03/18 Divalproex Sodium [Depakote] 1,000 mg PO BEDTIME 09/03/18 Divalproex Sodium [Depakote] 500 mg PO DAILY 09/03/18 Esomeprazole Mag Trihydrate [Nexium] 40 mg PO DAILY 09/03/18 Eszopiclone [Lunesta] 3 mg PO BEDTIME 09/03/18 Icosapent Ethyl [Vascepa] 2 cap PO BID 09/03/18 Ipratropium [Atrovent 0.03% (21MCG)/[place] Nasal*] 2 sprays NS TID 09/03/18 L.acidoph,Paracasei, B.lactis [Probiotic] 1 each PO DAILY 09/03/18 Levothyroxine Sodium 100 mcg PO DAILY 09/03/18 Loratadine [Claritin*] 10 mg PO BEDTIME 09/03/18 Multivitamin [Multivitamins] 1 each PO BEDTIME 09/03/18 Nebivolol HCl [Bystolic*] 20 mg PO DAILY 09/03/18 Olopatadine HCl [Patanase] 2 spray NS BID 09/03/18 Rosuvastatin Calcium [Crestor] 40 mg PO BEDTIME 09/03/18 Tolterodine Tartrate [Detrol LA*] 4 mg PO BEDTIME 09/03/18 Tramadol HCl [Ultram] 50 mg PO Q8H PRN 09/03/18 clonazePAM [Klonopin] 0.5 mg PO BEDTIME 09/03/18 - Past Medical/Surgical History Diabetic: No -: sleep apnea -: IBS/GERD -: Hypothyroidism -: ANEMIA -: Pulmonary HTN -: back pain/ pinch nerves -: CKD, seasonal allergies -: HTN -: DVT -: hypertriglyceridemia -: hyperlipidemia -: lymphedema -: Hysterectomy -: Hernia repair -: Knee SX -: colon resection -: back Sx, Sciatica -: cyst removed from forehead x2 -: breast biopsy x2 -: fistula PAULINA - Family History Mother Medical History: Hypertension, Blood disorders - Social History Smoking Status: Unknown if ever smoked Alcohol use: No CD- Drugs: No Caffeine use: No Place of Residence: Home Review of Systems General: Weakness Respiratory: Shortness of Breath Cardiovascular: Edema Physical Examination Temp Pulse Resp BP Pulse Ox 97.9 F 85 22 H 109/65 98 09/10/18 04:00 09/10/18 08:00 09/10/18 08:00 09/10/18 08:00 09/10/18 08:00 General: Alert, In no apparent distress, Oriented x3 Neck: Supple Respiratory: Clear to auscultation bilaterally Cardiovascular: Regular rate/rhythm, Normal S1 S2, Edema Gastrointestinal: Normal bowel sounds, Soft and benign - Problems (1) Respiratory failure Current Visit: Yes Status: Acute Plan: Patient is 58 years of age with a history of pulmonary hypertension admitted with weakness headache hypotension currently on BiPAP hypoxic hypercapnic patient has never smoked she has BiPAP at home history of sleep apnea patient also has renal failure currently hypernatremic chest x-rays clear some interstitial changes patient is on adcirca, repeat echocardiogram ordered urine culture is negative vital signs stable normal thyroid function test Qualifiers: Chronicity: acute on chronic
[2018-09-10] MEDS ORDERED: MULTIVITAMIN TAB PO SCH (09:00)
[2018-09-10] MEDS: VITAMIN D 1000 UNIT TAB PO SCH ×2 (09:00→14:00)
[2018-09-10] MEDS ORDERED: HOME MED 1 EA UNK (Cholecalciferol (Vitamin D3) [Vitamin D3] 2,000 UNIT) PO SCH (09:00)
[2018-09-10] MEDS: ASPIRIN EC 81 MG TAB PO SCH (09:00)
[2018-09-10] MEDS ORDERED: CALCIUM CARBONATE PO SCH (09:00)
[2018-09-10] MEDS ORDERED: FUROSEMIDE 40 MG/4 ML VIAL IV SCH (09:00)
[2018-09-10] MEDS ORDERED: NEBIVOLOL HCL 20 MG TABLET PO SCH (09:00)
[2018-09-10] MEDS: CALCIUM CARBONATE 500 MG TAB PO SCH (09:00)
[2018-09-10] MEDS ORDERED: MIDAZOLAM HCL 2 MG/2 ML INJ ONE (09:13)
[2018-09-10] MEDS ORDERED: FENTANYL CITR 100 MCG/2 ML ONE (09:13)
[2018-09-10] MEDS ORDERED: PROPOFOL 200 MG/20 ML VIAL IV ONE (09:13)
[2018-09-10] MEDS ORDERED: ROCURONIUM 50 MG/5 ML VIAL IV ONE (09:14)
[2018-09-10] MEDS ORDERED: LIDOCAINE 2% MPF 5 ML VIAL ONE (09:14)
[2018-09-10] MEDS ORDERED: ONDANSETRON 4 MG/2 ML VIAL ONE (09:15)
[2018-09-10] MEDS ORDERED: NS 0.9% VIAL 30 ML ONE ×2 (09:42→09:48)
[2018-09-10] MEDS ORDERED: BACITRACIN OINTMENT 15 GM TUBE TOP ONE (09:42)
[2018-09-10] MEDS ORDERED: LIDOCAINE 1% MPF 30 ML VIAL ONE (09:43)
[2018-09-10] MEDS ORDERED: Phenylephrine HCl 10 MG/ML 1 ML VIAL ONE (09:48)
[2018-09-10] MEDS ORDERED: EPHEDRINE SULF 50 MG/ML VIAL ONE (09:48)
[2018-09-10] MEDS ORDERED: NA CHLORIDE 0.9% 500 ML ONE ×2 (10:30→11:41)
--- NOTE | 2018-09-10 11:45 | P.BOP ---
Preoperative diagnosis: pulmonary HTN, renal insufficiency, need for central line access Postoperative diagnosis: same Primary procedure: Placement of central line under anesthesis Secondary procedure: interpretation of fluoroscopy Other procedure(s): right and left neck ultrasound Estimated blood loss: <10cc Specimen: none Findings: see dictation Anesthesia: General Complications: None Transferred to: Recovery Room Condition: Fair
--- NOTE | 2018-09-10 12:24 | RAD REPORT ---
EXAM DESCRIPTION: RAD - Fluoroscopy <1 Hour - 09/10/2018 12:16 pm CLINICAL HISTORY: Venous catheter insertion. CENTRAL LINE PLACEMENT COMPARISON: Urinary Bladder dated 04/20/2018 FINDINGS: Fluoroscopy time 4.6 minutes.
--- NOTE | 2018-09-10 12:42 | RAD REPORT ---
EXAM DESCRIPTION: RAD - Chest Single View - 09/10/2018 12:35 pm CLINICAL HISTORY: XRAY IN OR TO R/O PNEUMOTHORAX Chest pain. COMPARISON: Chest Single View dated 09/08/2018; Abdomen 1 View (KUB) dated 09/04/2018; Chest Single View dated 09/02/2018; Chest Single View dated 11/22/2017 FINDINGS: Portable technique limits examination quality. Limited intraoperative chest radiograph is submitted. Opacification left hemithorax is noted, without evidence of pneumothorax. No right-sided pneumothorax seen.Cardiac size is not well delineated.
--- NOTE | 2018-09-10 12:44 | RAD REPORT ---
EXAM DESCRIPTION: RAD - Chest Single View - 09/10/2018 12:37 pm CLINICAL HISTORY: right central line placement Chest pain. COMPARISON: Chest Single View dated 09/10/2018; Chest Single View dated 09/08/2018; Abdomen 1 View (KUB ) dated 09/04/2018; Chest Single View dated 09/02/2018 FINDINGS: Portable technique limits examination quality. A right venous catheter has been placed with tip in the SVC. No pneumothorax is present. The heart is mildly moderately enlarged. IMPRESSION: No evidence of postprocedure pneumothorax.
--- NOTE | 2018-09-10 13:13 | P.PN ---
Subjective Date of Service: 09/10/18 Chief Complaint: Respiratory failure Subjective: No new changes, C/O voiced (GEN WEAK.) Review of Systems 10-point ROS is otherwise unremarkable General: Weakness, Malaise Respiratory: As per HPI Physical Examination - Vital Signs Temperature: 97.9 F Blood Pressure: 93/50 Pulse: 80 Respirations: 19 Pulse Ox (%): 99 - Physical Exam General: Alert, Mild distress, Obese ( ON BIPAP.) HEENT: Atraumatic, PERRLA, EOMI Neck: Supple, JVD not distended Respiratory: Clear to auscultation bilaterally, Normal air movement Cardiovascular: Regular rate/rhythm, Normal S1 S2 Gastrointestinal: Normal bowel sounds, No tenderness Musculoskeletal: No tenderness Integumentary: No rashes Neurological: Normal speech, Normal tone, Normal affect Lymphatics: No axilla or inguinal lymphadenopathy - Studies Medications List Reviewed: Yes Assessment And Plan - Current Problems (Diagnosis) (1) Dyspnea Current Visit: Yes Status: Suspected Plan: CLINICALLY SHE HAS DRY MUCOUS MEMBRANES BUT SHE IS DYSPNEIC. I BELIEVE THIS CAN BE FROM HYPERCAPNEA AND REDUCED BREATH SOUNDS FROM OBESITY. SHE HAS SEVERE PULMONARY HTN THAT IS GETTING WORSE. DR. WINTERS IS GIVING LASIX DRIP HE THINKS THERE MAY BE SOME FLUID OVERLOAD PER X. RAY. PROGNOSIS IS POOR. I TALKED TO . CARMINE ASKED IF SHE SHOULD GO TO [facility]. I TOLD HER AND THAT [facility] MAY NOT MAKE ANY DIFFERENCE IN HER CONDITION AND SHE WILL CONTINUE TO FEEL BAD. STILL IF THEY WANT I WILL TRANSFER HER. HE WILL LET ME KNOW. (2) Acute on chronic renal failure Onset Date: 09/18/17 Current Visit: No Status: Chronic Plan: WORSE GRADAULLY. GENTLE HYDRATION IMPROVED CREATININE OVERNIGHT. (3) Anemia in chronic kidney disease Onset Date: 09/04/18 Current Visit: No Status: Acute (4) Thrombocytopenia Onset Date: 09/04/18 Current Visit: No Status: Chronic Plan: MORBID OBEISTY , FATTY LIVER CAN GIVE RISE TO CIRRHOSIS OVERTIME AND SO THROMBOCYTOPENIA. WILL WATCH DAILY. SHE IS NOT A CANDIDATE FOR ANY INVASIVE TESTS LIKE BONE MARROW BIOPSY. SHE HAS RENAL FAILURE AND LOW PLATELETS. WILL RULE OUT A REMOTE POSSIBILITY OF HUS OR TTP. ORDER HAPTOGLOBULIN, LDH AND SMEAR. (5) Pulmonary HTN Onset Date: 11/23/17 Current Visit: No Status: Chronic Plan: SEVERE, WORSE GRADUALLY. HAS BEEN ON MEDS FOR LONG TIME. DISCUSSED POOR PROGNOSIS WITH AND HE UNDERSTANDS THIS IS RAPID DECLINE IN HER CONDITION. (6) Pickwickian syndrome Current Visit: Yes Status: Chronic Plan: OBESITY INDUCED HYPOVENTILATION SYNDROME. SEVERE HYPERCAPNEA. IN THE PAST I HAVE ASKED HER TO WATCH DIET AND LOSE WEIGHT. SHE TOLD ME A FEW WEEKS AGO THAT SHE WILL BE OBESE AND SHE DOES NOT LIKE ME TO REMIND HER TO WATCH DIET. SHE NOW IS TO A STAGE THAT SHE OVERALL WILL NOT DO WELL. SEVERE ISSUES. POOR PROGNOSIS. MULTIFACTORIAL ILLNESS. CKD FROM LITHIUM FOR BIPOLAR, SEVERE PULMONARY HTN, HYPERCAPNEA FROM SEVERE OBESITY.
--- NOTE | 2018-09-10 13:29 | ECHO ---
HEIGHT: 5 ft 5 in WEIGHT: 212 lb 14.4 oz DATE OF STUDY: 09/10/[address]: Darwin Westbrook MD 2-DIMENSIONAL: YES M.MODE: YES DOPPLER: YES COLOR FLOW: YES TDS: NO PORTABLE: NO DEFINITY: NO BUBBLE STUDY: NO DIAGNOSIS: HISTORY OF PULMONARY HYPERTENSION CARDIAC HISTORY: CATHERIZATION: NO SURGERY: NO PROSTHETIC VALVE: NO PACEMAKER: NO MEASUREMENTS (cm) DIASTOLIC (NORMALS) SYSTOLIC (NORMALS) IVSd 1.3 (0.6-1.2) LA Diam (1.9-4.0) LVEF 63% LVIDd 3.8 (3.5-5.7) LVIDs 2.5 (2.0-3.5) %FS 34% LVPWd 1.4 (0.6-1.2) Ao Diam 2.7 (2.0-3.7) 2 DIMENSIONAL ASSESSMENT: RIGHT ATRIUM: NORMAL LEFT ATRIUM: DILATED RIGHT VENTRICLE: NORMAL LEFT VENTRICLE: LEFT VENTRICULAR HYPERTROPHY TRICUSPID VALVE: NORMAL MITRAL VALVE: NORMAL PULMONIC VALVE: NORMAL AORTIC VALVE: SCLEROSIS PERICARDIAL EFFUSION: NONE AORTIC ROOT: NORMAL LEFT VENTRICULAR WALL MOTION: NORMAL. DOPPLER/COLOR FLOW: PHYSIOLOGIC TRICUSPID REGURGITATION. NORMAL RIGHT VENTRICULAR SYSTOLIC PRESSURE. NO AORTIC STENOSIS OR REGURGITATION. IMPAIRED LEFT VENTRICULAR RELAXATION. COMMENTS: NORMAL LEFT VENTRICULAR EJECTION FRACTION. LEFT VENTRICULAR DILITATION. DILATED LEFT ATRIUM. AORTIC SCLEROSIS WITH NO AORTIC STENOSIS OR REGURGITATION. IMPAIRED LEFT VENTRICULAR RELAXATION. TECHNOLOGIST: STEPHENIE QUIJANO
[2018-09-10] MEDS: PANTOPRAZOLE 40MG TABLET PO SCH (13:59)
[2018-09-10] MEDS: DIVALPROEX DR 500MG TAB PO SCH ×2 (14:00→20:38)
[2018-09-10] MEDS: TRAMADOL HCL 50 MG TAB PO PRN (14:01)
[2018-09-10] MEDS: TOLTERODINE LA 4 MG CAP PO SCH (20:38)
[2018-09-10] MEDS: clonazePAM 0.5 MG TAB PO SCH (20:39)
[2018-09-10] MEDS: LORATADINE 10 MG TAB PO SCH (20:47)
[2018-09-10] MEDS: ROSUVASTATIN 10 MG TAB PO SCH (20:47)
[2018-09-10] MEDS: MULTIVITAMIN TAB PO SCH (20:47)
[2018-09-10] MEDS: ALLOPURINOL 100 MG TAB PO SCH (20:48)
[2018-09-11] MEDS: FUROSEMIDE 100 MG in NA CHLORIDE 0.9% 90 ML IV SCH ×3 (00:38→19:37)
--- NOTE | 2018-09-11 02:19 | OP ---
Date of Procedure: 09/10/2018 Surgeon: Be Conte MD Preoperative Diagnoses: Pulmonary hypertension, renal insufficiency, respiratory insufficiency, need for central line access, obesity. Postoperative Diagnoses: Pulmonary hypertension, renal insufficiency, respiratory insufficiency, nee d for central line access, obesity. Procedures: 1.Placement of a tunneled central line catheter under anesthesia. 2.Interpretation of fluoroscopy. 3.Right and left neck ultrasound for line placement. Estimated Blood Loss: Less than 10 cc. Specimen: None. Anesthesia: General plus local. Findings: The patient has limited access. Right subclavian cannot be used because of an AV fistula, and the right side of the neck was preferred not to use to not to affect the fistula, so we were try ing to take a look at the right groin area, but we noticed the patient has a deep vein thrombosis as per patient. Unable to say for sure it is right or left, so the groins are not an option and then we go into the left subclavian and left jugular, but in the left jugular region the patient has a dianne ter placed in the ER, so we left with this left subclavian. The patient is swollen, so difficult to access, morbidly obese, and that is why as said this patient need to be done under control setting fl uoroscopy and ultrasound placement down there in the OR. I fully explained the patient the benefits, alternatives, and risks of central line placement which include but not limited to infection, bleedi ng, damage to adjacent structures, anesthesia complications, pneumothorax, hemothorax, DVTs, pulmonar y emboli, cardiac arrhythmias, LA, even . She also understands this might not relieve any sympt oms and she might need more than one surgical intervention. She understood and signed the consent. The OR was notified. Anesthesia preoperatively evaluated the patient. Description Of Procedure: Brought directly the patient from the ICU down to the OR due to the critic al condition. Patient's anesthesia was near, without complication. Her chest and neck were prepped and draped in a sterile fashion. The patient was placed in Trendelenburg position. The right neck u ltrasound was done to visualize the jugular veins, looks patent, with good compression. The left sub clavian region is difficult to access due to body habitus. With the patient in Trendelenburg positio n and upper chest and neck already prepped, we proceeded to place an 18-gauge needle in the left subc lavian vein. That vein could not be accessed properly. So, we are going to the left neck region. T he access from that area has already gone as there is a small catheter in that region. We attempted a left internal jugular vein catheterization but once again the wire placement is not adequate, so we had to avoid that situation and get a chest x-ray and it shows no pneumothorax and then we went to t he right side after prepping and draping in sterile fashion. Subclavian region was spared since we h ave a recent AV fistula placed in the right upper extremity, so we went to the right internal jugular vein. Using an ultrasound, once again we localized the internal jugular vein. I put an 18-gauge ne edle in that area past that wire. At this time, the wire goes a little easier and properly. The nee dle was removed and a central line triple lumen was placed using surgical technique. Backflow and in flow were appropriate. The line was secured in place with 3-0 nylon and covered with sterile dressin gs. The patient was brought back from Trendelenburg position to normal position. The patient will b e sent back to the ICU. Anesthesia is trying to decide if the patient will remain intubated or not. Whatever decision is taken is proper, we going to proceed accordingly. We are going to get a chest x-ray in recovery or ICU wherever she end up or determined to be safer. The patient tolerated the pr ocedure well. KACY/HAYLIE Voice ID: [id number] Report ID: [id number]
--- NOTE | 2018-09-11 02:19 | PN ---
Date of Progress Note: 09/10/2018 Chief Complaint: Fluid overload, elevated BUN and creatinine. The patient is a 58-year-old woman with history of chronic kidney disease stage 4, advanced chronic kidney disease with hypertension, history of pulmonary hypertension, obstructive sleep apnea, bipolar disorder. She was referred for AV fistula for future dialysis. The patient was admitted to the hospital 1 week ago because of shortness of breath, symptomatic anemia. She received PRBC transfusion and was discharged to home, and was started on IV iron and Epogen. The patient became short of breath, had generalized weakness. She is admitted to ICU. She has chronic kidney disease stage 4. Renal function remains at baseline. Estimated GFR is 19, BUN is 56, creatinine is 2.5. She became fluid overloaded and was started on IV Lasix. Today she developed a borderline hypotension. IV line was placed and she developed hematoma in the left chest area and left neck base. IV Lasix currently is on hold and the patient will receive IV fluids for blood pressure support and for hydration, p.o. intake has declined over the last 24 hours. Review of Systems: The patient denies chest pain, headache, vision changes. Denies nausea, vomiting, abdominal pain. Physical Examination: Lungs: Few crackles at bases. Heart: S1, S2. Abdomen: Soft, benign. Extremities: Edema present in both legs. Laboratory Data: Sodium 152, potassium 4.2, chloride 111, CO2 of 35, BUN 54, creatinine 2.42, glucose 89, albumin 2.3. Impression And Plan: 1. Chronic kidney disease stage 4, fluid overload, generalized edema, hypernatremia. The patient will start IV fluids for treatment of hypernatremia. 2. Borderline hypotension. Monitor blood pressure closely. The patient may need pressors. Recommend IV fluids for blood pressure support at this point, and Lasix is on hold. 3. Shortness of breath. The patient currently is asymptomatic. Denies paroxysmal nocturnal dyspnea, orthopnea. Continue oxygen therapy. 4. Anemia. Continue NOVA according to hemoglobin level. Monitor hemoglobin and plan transfusion if hemoglobin level is below 8. I spent total 36 min including 25 min to coordinate care plan. BHARTI/HAYLIE Voice ID: [id number] Report ID: [id number] JALEN
[2018-09-11 05:24] LABS: Absolute Monocytes 1.1 K/uL (0.1-1.3); Absolute Neutrophil 5.6 K/uL (1.8-8.0); Basophils % 0.2 % (0-1.3); Eosinophils % 0.8 % (0-4.4); Hematocrit 23.2 % (36.0-45.0); Lymphocytes % 13.1 % (15.3-44.8); MPV 7.5 fL (7.6-11.3); Monocytes % 13.7 % (3.3-12.3); RBC Red Blood Cell Count 2.38 M/uL (3.86-4.86)
[2018-09-11 05:42] LABS: Albumin 2.2 g/dL (3.4-5.0); Phosphorus 4.4 mg/dL (2.5-4.9)
[2018-09-11] MEDS: LEVOTHYROXINE SOD 0.1 MG TAB PO SCH (06:42)
--- NOTE | 2018-09-11 09:29 | P.PN ---
Subjective Date of Service: 09/11/18 Chief Complaint: Respiratory failure Subjective: No new changes Physical Examination - Vital Signs Temperature: 98 F Blood Pressure: 91/55 Pulse: 85 Respirations: 21 Pulse Ox (%): 92 - Physical Exam General: Alert, In no apparent distress HEENT: PERRLA Neck: Supple, Other (intact surgical site. no bleeding. ) Gastrointestinal: Soft and benign - Studies Medications List Reviewed: Yes Assessment And Plan - Plan continue treatment by primary MD central line care REconsult PRN
--- NOTE | 2018-09-11 09:38 | RAD REPORT ---
EXAM DESCRIPTION: RAD - Chest Single View - 09/11/2018 9:22 am CLINICAL HISTORY: Cough COMPARISON: September 10 TECHNIQUE: AP portable chest image was obtained 0919 hours . FINDINGS: Mid and lower left lung field pleural and parenchymal opacification has not clearly change d. No new or progressive parenchymal finding in either lung field. Right jugular central line is unch anged. Cardiac silhouette is enlarged. Mediastinum and heart are distorted by rotation artifact. No p neumothorax. Left costophrenic angle blunting is present. No acute bony abnormality seen. No acute ao rtic findings suspected. IMPRESSION: Left lung field pleural and parenchymal opacification not substantially different from c omparison.
[2018-09-11] MEDS: ICOSAPENT ETHYL 1 GM CAP PO SCH ×2 (09:47→17:24)
[2018-09-11] MEDS: CALCIUM CARBONATE 500 MG TAB PO SCH (09:48)
[2018-09-11] MEDS: PANTOPRAZOLE 40MG TABLET PO SCH (09:49)
[2018-09-11] MEDS: ASPIRIN EC 81 MG TAB PO SCH (09:49)
[2018-09-11] MEDS: VITAMIN D 1000 UNIT TAB PO SCH (09:49)
[2018-09-11] MEDS: GUAIFENESIN/DM 5 ML UCUP PO PRN (10:00)
[2018-09-11] MEDS: DIVALPROEX DR 500MG TAB PO SCH ×2 (11:09→21:21)
--- NOTE | 2018-09-11 13:10 | P.PN ---
Subjective Date of Service: 09/11/18 Chief Complaint: Respiratory failure Subjective: No new changes CARMINE IS ABOUT THE SAME. WEAK, LAYING IN BED, NO DYSPNEA NO CHEST PAIN. Review of Systems 10-point ROS is otherwise unremarkable General: Weakness, Malaise Physical Examination - Vital Signs Temperature: 98 F Blood Pressure: 104/53 Pulse: 83 Respirations: 21 Pulse Ox (%): 92 - Physical Exam General: Alert, In no apparent distress, Obese HEENT: Atraumatic, PERRLA, EOMI Neck: Supple, JVD not distended Respiratory: Clear to auscultation bilaterally, Normal air movement Cardiovascular: Regular rate/rhythm, Normal S1 S2 Gastrointestinal: Normal bowel sounds, No tenderness Musculoskeletal: No tenderness Integumentary: No rashes Neurological: Normal speech, Normal tone, Normal affect Lymphatics: No axilla or inguinal lymphadenopathy - Studies Medications List Reviewed: Yes Assessment And Plan - Current Problems (Diagnosis) (1) Dyspnea Current Visit: Yes Status: Suspected Plan: CLINICALLY SHE HAS DRY MUCOUS MEMBRANES BUT SHE IS DYSPNEIC. I BELIEVE THIS CAN BE FROM HYPERCAPNEA AND REDUCED BREATH SOUNDS FROM OBESITY. SHE HAS SEVERE PULMONARY HTN THAT IS GETTING WORSE. DR. WINTERS IS GIVING LASIX DRIP HE THINKS THERE MAY BE SOME FLUID OVERLOAD PER X. RAY. PROGNOSIS IS POOR. I TALKED TO . CARMINE ASKED IF SHE SHOULD GO TO [place]. I TOLD HER AND THAT [place] MAY NOT MAKE ANY DIFFERENCE IN HER CONDITION AND SHE WILL CONTINUE TO FEEL BAD. STILL IF THEY WANT I WILL TRANSFER HER. HE WILL LET ME KNOW. STABLE FOR THE FLOOR. PROGNOSIS IS POOR. (2) Acute on chronic renal failure Onset Date: 09/18/17 Current Visit: No Status: Chronic Plan: WORSE GRADAULLY. GENTLE HYDRATION IMPROVED CREATININE OVERNIGHT. RENAL DOCTORS ARE MANAGING THE FLUIDS. CREATIINE IS HIGHER BUT MILDLY. (3) Anemia in chronic kidney disease Onset Date: 09/04/18 Current Visit: No Status: Acute Plan: HG LOWER, TO BE REDONE. WILL FU. MAY NEED BLOOD. (4) Thrombocytopenia Onset Date: 09/04/18 Current Visit: No Status: Chronic Plan: MORBID OBEISTY , FATTY LIVER CAN GIVE RISE TO CIRRHOSIS OVERTIME AND SO THROMBOCYTOPENIA. WILL WATCH DAILY. SHE IS NOT A CANDIDATE FOR ANY INVASIVE TESTS LIKE BONE MARROW BIOPSY. SHE HAS RENAL FAILURE AND LOW PLATELETS. WILL RULE OUT A REMOTE POSSIBILITY OF HUS OR TTP. ORDER HAPTOGLOBULIN, LDH AND SMEAR. (5) Pulmonary HTN Onset Date: 11/23/17 Current Visit: No Status: Chronic Plan: SEVERE, WORSE GRADUALLY. HAS BEEN ON MEDS FOR LONG TIME. DISCUSSED POOR PROGNOSIS WITH AND HE UNDERSTANDS THIS IS RAPID DECLINE IN HER CONDITION. (6) Pickwickian syndrome Current Visit: Yes Status: Chronic Plan: OBESITY INDUCED HYPOVENTILATION SYNDROME. SEVERE HYPERCAPNEA. IN THE PAST I HAVE ASKED HER TO WATCH DIET AND LOSE WEIGHT. SHE TOLD ME A FEW WEEKS AGO THAT SHE WILL BE OBESE AND SHE DOES NOT LIKE ME TO REMIND HER TO WATCH DIET. SHE NOW IS TO A STAGE THAT SHE OVERALL WILL NOT DO WELL. SEVERE ISSUES. POOR PROGNOSIS. MULTIFACTORIAL ILLNESS. CKD FROM LITHIUM FOR BIPOLAR, SEVERE PULMONARY HTN, HYPERCAPNEA FROM SEVERE OBESITY.
[2018-09-11 14:23] LABS: Hematocrit 22.5 % (36.0-45.0)
[2018-09-11] MEDS: ACETAMINOPHEN 500 MG TAB PO PRN (15:38)
--- NOTE | 2018-09-11 17:50 | PN ---
Date of Progress Note: 09/11/2018 Subjective: The patient was admitted with respiratory distress over volume and hypercapnic respiratory failure. The patient was started on Lasix drip, responded very well. Physical Examination: Vital Signs: Today blood pressure 104/53, pulse of 83. The patient had urine output of 4 L, negative of 3 L. Chest: Crackles bilateral base. Heart: S1-S2. Systolic murmur. Abdomen: Soft and nontender. Extremities: Plus edema. Laboratory Data: WBC 7.8, H and H 7.6/23.2, platelet 116. Sodium 149, potassium 4, bicarb 37, BUN 58, creatinine 2.8, GFR 17, calcium 8.3, phos 4.4, albumin 2.2. Current Medications: The patient is on, 1. IV iron. 2. Loratadine. 3. Aspirin. 4. Calcium carbonate. 5. Multivitamin. 6. Pantoprazole. 7. Levothyroxine. 8. Allopurinol. 9. Breathing treatment. Assessment And Plan: 1. Chronic kidney disease stable, around her baseline, over volume with marginal low blood pressure. I am going to resume Lasix drip and we will monitor. 2. Hyponatremia, resolve. 3. Iron-deficiency anemia with chronic kidney disease anemia. Continue IV iron and Epogen. 4. Deconditioning. Continue PT, OT after improve. 5. Congestive heart failure with exacerbation, possible diastolic dysfunction. Continue diuresis. Follow up with Cardiology. 6. Anemia. We will repeat H and H. If it stays loss, we will arrange for 1 unit of transfusion. ARIAN Voice ID: [id number] Report ID: [id number] JALEN
[2018-09-11] MEDS ORDERED: NA CHLORIDE 0.9% 250 ML ONE (18:56)
[2018-09-11] MEDS: clonazePAM 0.5 MG TAB PO SCH (21:20)
[2018-09-11] MEDS: ALLOPURINOL 100 MG TAB PO SCH (21:20)
[2018-09-11] MEDS: MULTIVITAMIN TAB PO SCH (21:20)
[2018-09-11] MEDS: LORATADINE 10 MG TAB PO SCH (21:20)
[2018-09-11] MEDS: ROSUVASTATIN 10 MG TAB PO SCH (21:20)
[2018-09-11] MEDS: TOLTERODINE LA 4 MG CAP PO SCH (21:21)
[2018-09-12 00:56] LABS: Hematocrit 27.7 % (36.0-45.0)
[2018-09-12] MEDS: GUAIFENESIN/DM 5 ML UCUP PO PRN (05:05)
[2018-09-12] MEDS: TRAMADOL HCL 50 MG TAB PO PRN (05:05)
[2018-09-12] MEDS: LEVOTHYROXINE SOD 0.1 MG TAB PO SCH (05:06)
[2018-09-12] MEDS: PANTOPRAZOLE 40MG TABLET PO SCH (05:06)
[2018-09-12 05:57] LABS: Absolute Monocytes 0.8 K/uL (0.1-1.3); Absolute Neutrophil 4.7 K/uL (1.8-8.0); Basophils % 0.3 % (0-1.3); Eosinophils % 1.5 % (0-4.4); Hematocrit 28.5 % (36.0-45.0); MPV 7.2 fL (7.6-11.3); Monocytes % 12.3 % (3.3-12.3); RBC Red Blood Cell Count 3.03 M/uL (3.86-4.86)
[2018-09-12 06:06] LABS: Albumin 2.2 g/dL (3.4-5.0); Potassium 4.1 mmol/L (3.5-5.1)
[2018-09-12] MEDS: VITAMIN D 1000 UNIT TAB PO SCH (08:49)
[2018-09-12] MEDS: CALCIUM CARBONATE 500 MG TAB PO SCH (08:49)
[2018-09-12] MEDS: ASPIRIN EC 81 MG TAB PO SCH (08:49)
[2018-09-12] MEDS: DIVALPROEX DR 500MG TAB PO SCH ×3 (08:51→21:25)
[2018-09-12] MEDS: ICOSAPENT ETHYL 1 GM CAP PO SCH ×2 (08:51→16:38)
[2018-09-12] MEDS: FUROSEMIDE 100 MG in NA CHLORIDE 0.9% 90 ML IV SCH ×2 (08:52→21:23)
--- NOTE | 2018-09-12 10:22 | RAD REPORT ---
EXAM DESCRIPTION: RAD - Chest Single View - 09/12/2018 10:12 am CLINICAL HISTORY: COPD, shortness of breath COMPARISON: September 11, September 10 TECHNIQUE: AP portable chest image was obtained 1006 hours . FINDINGS: Lung volume is similar to comparison. Left pleural effusion has increased from prior day i maging. Infiltrate and/ or atelectasis are evident in the left base. Heart size remains prominent. Me diastinum is distorted by rotation and scoliotic curvature of the spine. Partially imaged right jugul ar central venous catheter again noted, unchanged in position. No pneumothorax. No measurable right p leural effusion. IMPRESSION: Enlarging left pleural effusion with progressive infiltrate and/ or atelectasis left bas e.
--- NOTE | 2018-09-12 12:02 | PN ---
Date of Progress Note: 09/12/2018 Subjective: The patient was admitted with acute kidney injury, cardio, renal, and developed respirat ory distress, hypercapnic respiratory failure. Kidney function is still declining. The patient is o n Lasix drip. Chest x-ray still showing over volume sign. The patient had good urine output. Physical Examination: Vital Signs: Blood pressure 135/63, pulse of 93. The patient had urine output of 2600, negative of 800. Chest: Decreased entry in bilateral bases. Crackles. Heart: S1, S2. Regular. Systolic murmur. Abdomen: Soft, nontender. Extremities: Plus edema. Laboratory Data: WBC 6.6, H and H 9.3/28.5, platelet 123. Sodium 146, potassium 4.1, bicarb 37, BUN 62, creatinine 3.5. GFR of 13, calcium 8.4, phos 4.4, albumin 2.2. Current Medications: The patient is on, 1.Lasix drip. 2.IV iron. 3.Calcium carbonate. 4.Atorvastatin. 5.Depakote. 6.Clonazepam. 7.Zofran. 8.Pantoprazole. 9.Levothyroxine. 10.Eye drops. 11.Cholecalciferol. Assessment And Plan: Acute kidney injury, advanced chronic kidney disease, nonoliguric. No hyperkal emia. Over volume. 1.I am going to continue Lasix drip for the time being. 2.If kidney function continues to decline, the patient may need to be initiated on dialysis. The ollie anthony had AV fistula, not matured, on the right side at that time. We are going to need to place a c atheter and initiate dialysis. I had a long discussion with the patient in the presence of the [facility] that we will be watching on a daily basis, and depending on that, we will decide the action. The patient agreed on the plan. 3.Hypertension, currently low blood pressure. Keep utilizing blood pressure for more diuresis. 4.Chronic obstructive pulmonary disease exacerbation as by Pulmonary. 5.Iron-deficiency anemia, continue IV iron for the time being. 6.Gout, stable. Continue allopurinol. 7.Congestive heart failure with exacerbation. Continue diuresis. MEGAN/HAYLIE Voice ID: [id number] Report ID: [id number]
[2018-09-12] MEDS: SOD FERRIC GLUC COMPLX/SUCROSE 250 MG in NA CHLORIDE 0.9% 250 ML IV SCH (12:03)
--- NOTE | 2018-09-12 20:55 | P.PN ---
Subjective Date of Service: 09/12/18 Chief Complaint: Respiratory failure Subjective: Improving CARMINE IS ABOUT THE SAME. WEAK, LAYING IN BED, NO DYSPNEA NO CHEST PAIN. SHE IS STABLE BUT GRADUALLY IMPROVING. NO FEVER, NO COUGH. Review of Systems 10-point ROS is otherwise unremarkable General: Weakness, Malaise Physical Examination - Vital Signs Temperature: 97.9 F Blood Pressure: 113/58 Pulse: 91 Respirations: 16 Pulse Ox (%): 91 - Physical Exam General: Alert, Mild distress, Obese HEENT: Atraumatic, PERRLA, EOMI Neck: Supple, JVD not distended Respiratory: Clear to auscultation bilaterally, Normal air movement Cardiovascular: Regular rate/rhythm, Normal S1 S2 Gastrointestinal: Normal bowel sounds, No tenderness Musculoskeletal: No tenderness Integumentary: No rashes Neurological: Normal speech, Normal tone, Normal affect Lymphatics: No axilla or inguinal lymphadenopathy - Studies Medications List Reviewed: Yes Assessment And Plan - Current Problems (Diagnosis) (1) Dyspnea Current Visit: Yes Status: Suspected Plan: CLINICALLY SHE HAS DRY MUCOUS MEMBRANES BUT SHE IS DYSPNEIC. I BELIEVE THIS CAN BE FROM HYPERCAPNEA AND REDUCED BREATH SOUNDS FROM OBESITY. SHE HAS SEVERE PULMONARY HTN THAT IS GETTING WORSE. DR. WINTERS IS GIVING LASIX DRIP HE THINKS THERE MAY BE SOME FLUID OVERLOAD PER X. RAY. PROGNOSIS IS POOR. I TALKED TO . CARMINE ASKED IF SHE SHOULD GO TO [place]. I TOLD HER AND THAT [place] MAY NOT MAKE ANY DIFFERENCE IN HER CONDITION AND SHE WILL CONTINUE TO FEEL BAD. STILL IF THEY WANT I WILL TRANSFER HER. HE WILL LET ME KNOW. STABLE FOR THE FLOOR. PROGNOSIS IS POOR. (2) Acute on chronic renal failure Onset Date: 09/18/17 Current Visit: No Status: Chronic Plan: WORSE GRADAULLY. GENTLE HYDRATION IMPROVED CREATININE OVERNIGHT. RENAL DOCTORS ARE MANAGING THE FLUIDS. CREATIINE IS HIGHER BUT MILDLY. CXR IS WORSE. LOW GRADE DIURESIS MANAGED BY RENAL DOCTORS. (3) Anemia in chronic kidney disease Onset Date: 09/04/18 Current Visit: No Status: Acute Plan: HG LOWER, TO BE REDONE. WILL FU. MAY NEED BLOOD. (4) Thrombocytopenia Onset Date: 09/04/18 Current Visit: No Status: Chronic Plan: MORBID OBEISTY , FATTY LIVER CAN GIVE RISE TO CIRRHOSIS OVERTIME AND SO THROMBOCYTOPENIA. WILL WATCH DAILY. SHE IS NOT A CANDIDATE FOR ANY INVASIVE TESTS LIKE BONE MARROW BIOPSY. SHE HAS RENAL FAILURE AND LOW PLATELETS. WILL RULE OUT A REMOTE POSSIBILITY OF HUS OR TTP. ORDER HAPTOGLOBULIN, LDH AND SMEAR. (5) Pulmonary HTN Onset Date: 11/23/17 Current Visit: No Status: Chronic Plan: SEVERE, WORSE GRADUALLY. HAS BEEN ON MEDS FOR LONG TIME. DISCUSSED POOR PROGNOSIS WITH AND HE UNDERSTANDS THIS IS RAPID DECLINE IN HER CONDITION. (6) Pickwickian syndrome Current Visit: Yes Status: Chronic Plan: OBESITY INDUCED HYPOVENTILATION SYNDROME. SEVERE HYPERCAPNEA. IN THE PAST I HAVE ASKED HER TO WATCH DIET AND LOSE WEIGHT. SHE TOLD ME A FEW WEEKS AGO THAT SHE WILL BE OBESE AND SHE DOES NOT LIKE ME TO REMIND HER TO WATCH DIET. SHE NOW IS TO A STAGE THAT SHE OVERALL WILL NOT DO WELL. SEVERE ISSUES. POOR PROGNOSIS. MULTIFACTORIAL ILLNESS. CKD FROM LITHIUM FOR BIPOLAR, SEVERE PULMONARY HTN, HYPERCAPNEA FROM SEVERE OBESITY.
[2018-09-12] MEDS: LORATADINE 10 MG TAB PO SCH (21:21)
[2018-09-12] MEDS: TOLTERODINE LA 4 MG CAP PO SCH (21:21)
[2018-09-12] MEDS: clonazePAM 0.5 MG TAB PO SCH (21:21)
[2018-09-12] MEDS: MULTIVITAMIN TAB PO SCH (21:21)
[2018-09-12] MEDS: ALLOPURINOL 100 MG TAB PO SCH (21:22)
[2018-09-12] MEDS: ROSUVASTATIN 10 MG TAB PO SCH (21:23)
[2018-09-12] MEDS: ESZOPICLONE 1 MG TAB PO PRN (21:47)
[2018-09-12 22:05] LABS: Urine Appearance TURBID; Urine Bilirubin NEGATIVE (NEG); Urine Blood 2+ (NEG); Urine Color YELLOW; Urine Glucose NEGATIVE (NEG); Urine Protein TRACE (NEG); Urine Specific Gravity <=1.005 (1.005-1.030); Urine Urobilinogen 0.2 mg/dL (0.2-1.0); Urine pH 5.5 (5.0-7.0)
[2018-09-12 22:14] LABS: Urine Bacteria LOADED /HPF (<20); Urine Culture Reflex Order NOT NEEDED; Urine RBC <5 /HPF (NONE SEEN)
[2018-09-13 04:57] LABS: Absolute Lymphocytes (CBC) 1.1 K/uL (0.7-4.9); Absolute Monocytes 0.9 K/uL (0.1-1.3); Absolute Neutrophil 4.4 K/uL (1.8-8.0); Basophils % 0.3 % (0-1.3); Eosinophils % 2.8 % (0-4.4); Lymphocytes % 16.5 % (15.3-44.8); MPV 7.1 fL (7.6-11.3); Monocytes % 13.8 % (3.3-12.3); RBC Red Blood Cell Count 2.97 M/uL (3.86-4.86)
[2018-09-13 05:10] LABS: Albumin 2.3 g/dL (3.4-5.0); Phosphorus 4.1 mg/dL (2.5-4.9); Potassium 3.5 mmol/L (3.5-5.1)
[2018-09-13] MEDS: LEVOTHYROXINE SOD 0.1 MG TAB PO SCH (05:51)
[2018-09-13] MEDS: FUROSEMIDE 100 MG in NA CHLORIDE 0.9% 90 ML IV SCH ×2 (08:33→20:37)
[2018-09-13] MEDS: ICOSAPENT ETHYL 1 GM CAP PO SCH ×2 (08:34→17:25)
[2018-09-13] MEDS: VITAMIN D 1000 UNIT TAB PO SCH (08:34)
[2018-09-13] MEDS: PANTOPRAZOLE 40MG TABLET PO SCH (08:34)
[2018-09-13] MEDS: CALCIUM CARBONATE 500 MG TAB PO SCH (08:35)
[2018-09-13] MEDS: ASPIRIN EC 81 MG TAB PO SCH (08:35)
--- NOTE | 2018-09-13 10:00 | RAD REPORT ---
EXAM DESCRIPTION: USExtrem Venous W Compress Bil09/13/2018 9:35 am CLINICAL HISTORY: Bilateral leg swelling COMPARISON: 2017 FINDINGS: The common femoral, superficial femoral, popliteal and posterior tibial veins bilaterally are compressible and demonstrate augmentation. Doppler demonstrates good flow. IMPRESSION: No evidence of deep venous thrombosis involving either lower extremity.
--- NOTE | 2018-09-13 12:58 | P.PN ---
Subjective Date of Service: 09/13/18 Chief Complaint: FEELING WELL NOW. Subjective: No C/O voiced, Improving CARMINE IS ABOUT THE SAME. WEAK, LAYING IN BED, NO DYSPNEA NO CHEST PAIN. SHE IS STABLE BUT GRADUALLY IMPROVING. NO FEVER, NO COUGH. SHE IS FEELING BETTER, LESS FATIGUED, COUGH IS BETTER ALSO. Review of Systems 10-point ROS is otherwise unremarkable General: Weakness, Malaise Respiratory: Shortness of Breath Physical Examination - Vital Signs Temperature: 97.1 F Blood Pressure: 137/62 Pulse: 91 Respirations: 18 Pulse Ox (%): 92 - Physical Exam General: Alert, Mild distress, Obese HEENT: Atraumatic, PERRLA, EOMI Neck: Supple, JVD not distended Respiratory: Diminished Cardiovascular: Regular rate/rhythm, Normal S1 S2 Gastrointestinal: Normal bowel sounds, No tenderness Musculoskeletal: No tenderness Integumentary: No rashes Neurological: Normal speech, Normal tone, Normal affect Lymphatics: No axilla or inguinal lymphadenopathy - Studies Medications List Reviewed: Yes Assessment And Plan - Current Problems (Diagnosis) (1) Dyspnea Current Visit: Yes Status: Suspected Plan: CLINICALLY SHE HAS DRY MUCOUS MEMBRANES BUT SHE IS DYSPNEIC. I BELIEVE THIS CAN BE FROM HYPERCAPNEA AND REDUCED BREATH SOUNDS FROM OBESITY. SHE HAS SEVERE PULMONARY HTN THAT IS GETTING WORSE. DR. WINTERS IS GIVING LASIX DRIP HE THINKS THERE MAY BE SOME FLUID OVERLOAD PER X. RAY. PROGNOSIS IS POOR. I TALKED TO . CARMINE ASKED IF SHE SHOULD GO TO [place]. I TOLD HER AND THAT [place] MAY NOT MAKE ANY DIFFERENCE IN HER CONDITION AND SHE WILL CONTINUE TO FEEL BAD. STILL IF THEY WANT I WILL TRANSFER HER. HE WILL LET ME KNOW. STABLE FOR THE FLOOR. PROGNOSIS IS POOR. IMPROVED CREATIINE IS HIGHER BUT FROM MEDS. WILL BE BETTER ON HD. (2) Acute on chronic renal failure Onset Date: 09/18/17 Current Visit: No Status: Chronic Plan: WORSE GRADAULLY. GENTLE HYDRATION IMPROVED CREATININE OVERNIGHT. RENAL DOCTORS ARE MANAGING THE FLUIDS. CREATIINE IS HIGHER BUT MILDLY. CXR IS WORSE. LOW GRADE DIURESIS MANAGED BY RENAL DOCTORS. (3) Anemia in chronic kidney disease Onset Date: 09/04/18 Current Visit: No Status: Acute Plan: HG LOWER, TO BE REDONE. WILL FU. MAY NEED BLOOD. HG IS 9 NOW. (4) Thrombocytopenia Onset Date: 09/04/18 Current Visit: No Status: Chronic Plan: MORBID OBEISTY , FATTY LIVER CAN GIVE RISE TO CIRRHOSIS OVERTIME AND SO THROMBOCYTOPENIA. WILL WATCH DAILY. SHE IS NOT A CANDIDATE FOR ANY INVASIVE TESTS LIKE BONE MARROW BIOPSY. SHE HAS RENAL FAILURE AND LOW PLATELETS. WILL RULE OUT A REMOTE POSSIBILITY OF HUS OR TTP. ORDER HAPTOGLOBULIN, LDH AND SMEAR. STABLE FOR NOW. (5) Pulmonary HTN Onset Date: 11/23/17 Current Visit: No Status: Chronic Plan: SEVERE, WORSE GRADUALLY. HAS BEEN ON MEDS FOR LONG TIME. DISCUSSED POOR PROGNOSIS WITH AND HE UNDERSTANDS THIS IS RAPID DECLINE IN HER CONDITION. STABLE AND WILL START PT. (6) Pickwickian syndrome Current Visit: Yes Status: Chronic Plan: OBESITY INDUCED HYPOVENTILATION SYNDROME. SEVERE HYPERCAPNEA. IN THE PAST I HAVE ASKED HER TO WATCH DIET AND LOSE WEIGHT. SHE TOLD ME A FEW WEEKS AGO THAT SHE WILL BE OBESE AND SHE DOES NOT LIKE ME TO REMIND HER TO WATCH DIET. SHE NOW IS TO A STAGE THAT SHE OVERALL WILL NOT DO WELL. SEVERE ISSUES. POOR PROGNOSIS. MULTIFACTORIAL ILLNESS. CKD FROM LITHIUM FOR BIPOLAR, SEVERE PULMONARY HTN, HYPERCAPNEA FROM SEVERE OBESITY.
[2018-09-13] MEDS: GUAIFENESIN/DM 5 ML UCUP PO PRN ×2 (15:10→21:48)
--- NOTE | 2018-09-13 20:58 | PN ---
Date of Progress Note: 09/13/2018 Subjective: The patient was admitted with CHF exacerbation, symptomatic anemia, status post transfus ion. The patient developed worsening kidney function, she is advanced. The patient was placed on La six drip, responding very well. Kidney function started to stabilize. Physical Examination: Vital Signs: Blood pressure 137/62, pulse of 91. The patient had urine output on the last 24 hour o f 4200, as weight garcia, the patient did drop to 211. Has lost 9 pounds from admission. Chest: Crackles bilateral. Heart: S1, S2. Systolic murmur. Abdomen: Soft, nontender. Extremities: Plus edema. Laboratory Data: WBC 6.6, H and H 9.2/28, platelet 124. Sodium 146, potassium 3.5, bicarb 41, BUN 6 9, creatinine 3.4, GFR of 14, stable, calcium 8.7, phos 4.1. Current Medications: The patient on, its include: 1.Aspirin. 2.Loratadine. 3.IV iron. 4.Calcium carbonate. 5.Rosuvastatin. 6.Depakote. 7.Lasix drip 10 mg per hour. 8.Pantoprazole. 9.Levothyroxine. 10.Allopurinol. Assessment And Plan: 1.Acute kidney injury on chronic kidney disease, nonoliguric, still on the over volume side. I am g oing to continue Lasix drip. I had long discussion with the patient that this is going to involve lo nger stay in the hospital. I do not see the need to start urgent dialysis right now, to evaluate if the patient is going to response for termite treater on the Lasix drip, the patient could be more beneficia l for LTAC. Discussed with the patient, family, the by bedside and the patient, both agreed. 2.Iron-deficiency anemia. Continue IV iron. Start Epogen. 3.Hypertension. We will utilize the blood pressure for more diuresis. Keep holding blood pressure medication. 4.Congestive heart failure. Continue diuresis. 5.Chronic obstructive pulmonary disease exacerbation, on the recovery. 6.Iron-deficiency anemia, as above. ARIAN Voice ID: [id number] Report ID: [id number]
[2018-09-13] MEDS: TOLTERODINE LA 4 MG CAP PO SCH (21:48)
[2018-09-13] MEDS: MULTIVITAMIN TAB PO SCH (21:48)
[2018-09-13] MEDS: ROSUVASTATIN 10 MG TAB PO SCH (21:48)
[2018-09-13] MEDS: clonazePAM 0.5 MG TAB PO SCH (21:49)
[2018-09-13] MEDS: DIVALPROEX DR 500MG TAB PO SCH ×3 (21:49→21:50)
[2018-09-13] MEDS: LORATADINE 10 MG TAB PO SCH (21:50)
[2018-09-13] MEDS: ALLOPURINOL 100 MG TAB PO SCH (21:50)
[2018-09-14] MEDS: ESZOPICLONE 1 MG TAB PO PRN (00:07)
[2018-09-14 05:25] LABS: Absolute Monocytes 0.9 K/uL (0.1-1.3); Absolute Neutrophil 3.7 K/uL (1.8-8.0); Basophils % 0.3 % (0-1.3); Eosinophils % 3.9 % (0-4.4); Hematocrit 28.7 % (36.0-45.0); Lymphocytes % 17.4 % (15.3-44.8); MPV 7.3 fL (7.6-11.3); Monocytes % 14.9 % (3.3-12.3); RBC Red Blood Cell Count 3.04 M/uL (3.86-4.86)
[2018-09-14] MEDS: FUROSEMIDE 100 MG in NA CHLORIDE 0.9% 90 ML IV SCH (05:25)
[2018-09-14] MEDS: GUAIFENESIN/DM 5 ML UCUP PO PRN ×2 (05:37→17:30)
[2018-09-14 05:42] LABS: Albumin 2.2 g/dL (3.4-5.0); Phosphorus 4.5 mg/dL (2.5-4.9); Potassium 3.4 mmol/L (3.5-5.1)
[2018-09-14] MEDS: LEVOTHYROXINE SOD 0.1 MG TAB PO SCH (06:25)
--- NOTE | 2018-09-14 08:56 | P.PN ---
Subjective Date of Service: 09/14/18 Chief Complaint: FEELING WELL NOW. Subjective: Improving CARMINE IS ABOUT THE SAME. WEAK, LAYING IN BED, NO DYSPNEA NO CHEST PAIN. SHE IS STABLE BUT GRADUALLY IMPROVING. NO FEVER, NO COUGH. SHE IS FEELING BETTER, LESS FATIGUED, COUGH IS BETTER ALSO. SHE IS SITTING UP AND EATING BREAKFAST. SHE WALKED WELL YESTERDAY. Review of Systems 10-point ROS is otherwise unremarkable Physical Examination - Vital Signs Temperature: 97.7 F Blood Pressure: 130/59 Pulse: 95 Respirations: 16 Pulse Ox (%): 95 - Physical Exam General: Obese HEENT: Atraumatic, PERRLA, EOMI Neck: Supple, JVD not distended Respiratory: Clear to auscultation bilaterally, Normal air movement Cardiovascular: Regular rate/rhythm, Normal S1 S2 Gastrointestinal: Normal bowel sounds, No tenderness Musculoskeletal: No tenderness Integumentary: No rashes Neurological: Normal speech, Normal tone, Normal affect Lymphatics: No axilla or inguinal lymphadenopathy - Studies Medications List Reviewed: Yes Assessment And Plan - Current Problems (Diagnosis) (1) Dyspnea Current Visit: Yes Status: Suspected Plan: CLINICALLY SHE HAS DRY MUCOUS MEMBRANES BUT SHE IS DYSPNEIC. I BELIEVE THIS CAN BE FROM HYPERCAPNEA AND REDUCED BREATH SOUNDS FROM OBESITY. SHE HAS SEVERE PULMONARY HTN THAT IS GETTING WORSE. DR. WINTERS IS GIVING LASIX DRIP HE THINKS THERE MAY BE SOME FLUID OVERLOAD PER X. RAY. PROGNOSIS IS POOR. I TALKED TO . CARMINE ASKED IF SHE SHOULD GO TO [place]. I TOLD HER AND THAT [place] MAY NOT MAKE ANY DIFFERENCE IN HER CONDITION AND SHE WILL CONTINUE TO FEEL BAD. STILL IF THEY WANT I WILL TRANSFER HER. HE WILL LET ME KNOW. STABLE FOR THE FLOOR. PROGNOSIS IS POOR. IMPROVED CREATIINE IS HIGHER BUT FROM MEDS. WILL BE BETTER ON HD. STABLE AND MANAGED BY RENAL MD. (2) Acute on chronic renal failure Onset Date: 09/18/17 Current Visit: No Status: Chronic Plan: WORSE GRADAULLY. GENTLE HYDRATION IMPROVED CREATININE OVERNIGHT. RENAL DOCTORS ARE MANAGING THE FLUIDS. CREATIINE IS HIGHER BUT MILDLY. CXR IS WORSE. LOW GRADE DIURESIS MANAGED BY RENAL DOCTORS. (3) Anemia in chronic kidney disease Onset Date: 09/04/18 Current Visit: No Status: Acute Plan: HG LOWER, TO BE REDONE. WILL FU. MAY NEED BLOOD. HG IS 9 NOW. (4) Thrombocytopenia Onset Date: 09/04/18 Current Visit: No Status: Chronic Plan: MORBID OBEISTY , FATTY LIVER CAN GIVE RISE TO CIRRHOSIS OVERTIME AND SO THROMBOCYTOPENIA. WILL WATCH DAILY. SHE IS NOT A CANDIDATE FOR ANY INVASIVE TESTS LIKE BONE MARROW BIOPSY. SHE HAS RENAL FAILURE AND LOW PLATELETS. WILL RULE OUT A REMOTE POSSIBILITY OF HUS OR TTP. ORDER HAPTOGLOBULIN, LDH AND SMEAR. STABLE FOR NOW. (5) Pulmonary HTN Onset Date: 11/23/17 Current Visit: No Status: Chronic Plan: SEVERE, WORSE GRADUALLY. HAS BEEN ON MEDS FOR LONG TIME. DISCUSSED POOR PROGNOSIS WITH AND HE UNDERSTANDS THIS IS RAPID DECLINE IN HER CONDITION. STABLE AND WILL START PT. (6) Pickwickian syndrome Current Visit: Yes Status: Chronic Plan: OBESITY INDUCED HYPOVENTILATION SYNDROME. SEVERE HYPERCAPNEA. IN THE PAST I HAVE ASKED HER TO WATCH DIET AND LOSE WEIGHT. SHE TOLD ME A FEW WEEKS AGO THAT SHE WILL BE OBESE AND SHE DOES NOT LIKE ME TO REMIND HER TO WATCH DIET. SHE NOW IS TO A STAGE THAT SHE OVERALL WILL NOT DO WELL. SEVERE ISSUES. POOR PROGNOSIS. MULTIFACTORIAL ILLNESS. CKD FROM LITHIUM FOR BIPOLAR, SEVERE PULMONARY HTN, HYPERCAPNEA FROM SEVERE OBESITY.
[2018-09-14] MEDS: CALCIUM CARBONATE 500 MG TAB PO SCH (09:01)
[2018-09-14] MEDS: PANTOPRAZOLE 40MG TABLET PO SCH (09:02)
[2018-09-14] MEDS: ASPIRIN EC 81 MG TAB PO SCH (09:02)
[2018-09-14] MEDS: VITAMIN D 1000 UNIT TAB PO SCH (09:02)
[2018-09-14] MEDS: ICOSAPENT ETHYL 1 GM CAP PO SCH ×2 (09:03→17:03)
[2018-09-14] MEDS: FUROSEMIDE 40 MG/4 ML VIAL IV SCH (17:02)
[2018-09-14] MEDS: ROSUVASTATIN 10 MG TAB PO SCH (21:20)
[2018-09-14] MEDS: TOLTERODINE LA 4 MG CAP PO SCH (21:21)
[2018-09-14] MEDS: MULTIVITAMIN TAB PO SCH (21:21)
[2018-09-14] MEDS: DIVALPROEX DR 500MG TAB PO SCH (21:21)
[2018-09-14] MEDS: LORATADINE 10 MG TAB PO SCH (21:21)
[2018-09-14] MEDS: clonazePAM 0.5 MG TAB PO SCH (21:21)
[2018-09-14] MEDS: ALLOPURINOL 100 MG TAB PO SCH (21:29)
[2018-09-15] MEDS: FUROSEMIDE 40 MG/4 ML VIAL IV SCH ×3 (01:34→16:15)
--- NOTE | 2018-09-15 04:06 | PN ---
Date of Progress Note: 09/14/2018 Chief Complaint: Congestive heart failure, anasarca, fluid overload, chronic kidney disease. The patient is on Lasix drip. She has severe deconditioning, shortness of breath, peripheral edema. The patient developed acute on chronic kidney injury, nonoliguric associated with congestive heart f ailure and fluid overload. Review of Systems: Denies fever, chills. She is complaining of some leg edema and shortness of breath with exertion. Physical Examination: Vital Signs: Blood pressure 130/60, heart rate 90. Chest: Crackles bilaterally present. Heart: S1, S2. Abdomen: Soft, benign. Extremities: Edema present in both legs. Laboratory Data: BUN 69, creatinine 3.4, GFR 14, calcium 8.7, phosphorus 4.1, hemoglobin 9.2, WBC 6. 6. Impression And Plan: 1.Acute on chronic kidney injury, nonoliguric, fluid overload. Continue Lasix drip. The patient bueno s effective diuresis. The plan is to wean Lasix drip if possible and to monitor daily weight and urin e output. 2.Iron deficiency anemia. The patient is on IV iron. The plan is to start NOVA. 3.Hypertension. Blood pressure in acceptable control. 4.Congestive heart failure, acute on chronic associated with fluid overload. Continue Lasix. Adjus t Lasix dose as needed. BHARTI/MODL Voice ID: [id number] Report ID: [id number]
[2018-09-15] MEDS: LEVOTHYROXINE SOD 0.1 MG TAB PO SCH (05:56)
[2018-09-15 06:10] LABS: Absolute Lymphocytes (CBC) 1.7 K/uL (0.7-4.9); Absolute Monocytes 1.2 K/uL (0.1-1.3); Absolute Neutrophil 4.8 K/uL (1.8-8.0); Basophils % 0.2 % (0-1.3); Eosinophils % 2.6 % (0-4.4); Hematocrit 30.6 % (36.0-45.0); Lymphocytes % 22.1 % (15.3-44.8); MPV 7.3 fL (7.6-11.3); Monocytes % 14.9 % (3.3-12.3); RBC Red Blood Cell Count 3.19 M/uL (3.86-4.86)
[2018-09-15] MEDS: ASPIRIN EC 81 MG TAB PO SCH (09:01)
[2018-09-15] MEDS: ICOSAPENT ETHYL 1 GM CAP PO SCH ×2 (09:01→16:15)
[2018-09-15] MEDS: PANTOPRAZOLE 40MG TABLET PO SCH (09:01)
[2018-09-15] MEDS: CALCIUM CARBONATE 500 MG TAB PO SCH (09:02)
[2018-09-15] MEDS: VITAMIN D 1000 UNIT TAB PO SCH (09:02)
[2018-09-15] MEDS: TRAMADOL HCL 50 MG TAB PO PRN (09:09)
[2018-09-15] MEDS: DIVALPROEX DR 500MG TAB PO SCH ×2 (09:11→20:45)
--- NOTE | 2018-09-15 12:42 | PN ---
Date of Progress Note: 09/15/2018 Chief Complaint: Congestive heart failure, anasarca, fluid overload, chronic kidney disease. The patient developed acute kidney injury on advanced chronic kidney disease. There is persistent pr erenal azotemia. BUN is 69, creatinine 3.4. The patient has anasarca, fluid overload. She was star brady on Lasix drip and switched to IV Lasix. Urine output is well maintained. Review of Systems: Denies fever or chills. Physical Examination: Lungs: Crackles bilaterally present. Heart: S1 and S2. No pericardial friction rub. Abdomen: Soft, benign. Extremities: Edema in both legs. Laboratory Data: Hemoglobin 10.1, WBC 7.1, platelet count 168,000. Chemistry showed sodium 146, pot assium 3.4, chloride 98, CO2 43, BUN 78, creatinine 3.61, glucose 134. Impression: 1.Yzial-dp-slovbvc kidney injury, cardiorenal syndrome, congestive heart failure with exacerbation, and fluid overload. Continue Lasix. 2.Metabolic alkalosis. Lasix dose was adjusted. 3.Hypokalemia. Continue potassium replacement. Check magnesium level. 4.Fluid overload, anasarca. Monitor fluid balance. Continue blood pressure medication. Adjust med ication for systolic blood pressure target 120. 5.Anemia. Hemoglobin level are fluctuating. Monitor hemoglobin level. BHARTI/HAYLIE Voice ID: [id number] Report ID: [id number]
[2018-09-15] MEDS: SOD FERRIC GLUC COMPLX/SUCROSE 250 MG in NA CHLORIDE 0.9% 250 ML IV SCH (13:06)
--- NOTE | 2018-09-15 17:17 | P.PN ---
Subjective Date of Service: 09/15/18 Chief Complaint: LOT BETTER. Subjective: Improving CARMINE IS ABOUT THE SAME. WEAK, LAYING IN BED, NO DYSPNEA NO CHEST PAIN. SHE IS STABLE BUT GRADUALLY IMPROVING. NO FEVER, NO COUGH. SHE IS FEELING BETTER, LESS FATIGUED, COUGH IS BETTER ALSO. SHE IS SITTING UP AND EATING BREAKFAST. SHE WALKED WELL YESTERDAY. STARTING TO MAKE SENSE NOW. ASKING FOR PLAN. I TOLD HER THAT DR BURROWS AND DR. THAKKAR PLAN FOR LTAC TO AVOID HD FOR A MONTH. SHE NEEDS DIURESIS BUT ORAL DID NOT WORK. Review of Systems 10-point ROS is otherwise unremarkable General: As per HPI Physical Examination - Vital Signs Temperature: 97.5 F Blood Pressure: 129/58 Pulse: 94 Respirations: 18 Pulse Ox (%): 97 - Physical Exam General: Alert, Obese HEENT: Atraumatic, PERRLA, EOMI Neck: Supple, JVD not distended Respiratory: Clear to auscultation bilaterally, Normal air movement Cardiovascular: Regular rate/rhythm, Normal S1 S2 Gastrointestinal: Normal bowel sounds, No tenderness Musculoskeletal: No tenderness Integumentary: No rashes Neurological: Normal speech, Normal tone, Normal affect Lymphatics: No axilla or inguinal lymphadenopathy - Studies Medications List Reviewed: Yes Assessment And Plan - Current Problems (Diagnosis) (1) Dyspnea Current Visit: Yes Status: Suspected Plan: CLINICALLY SHE HAS DRY MUCOUS MEMBRANES BUT SHE IS DYSPNEIC. I BELIEVE THIS CAN BE FROM HYPERCAPNEA AND REDUCED BREATH SOUNDS FROM OBESITY. SHE HAS SEVERE PULMONARY HTN THAT IS GETTING WORSE. DR. WINTERS IS GIVING LASIX DRIP HE THINKS THERE MAY BE SOME FLUID OVERLOAD PER X. RAY. PROGNOSIS IS POOR. I TALKED TO . CARMINE ASKED IF SHE SHOULD GO TO [place]. I TOLD HER AND THAT [place] MAY NOT MAKE ANY DIFFERENCE IN HER CONDITION AND SHE WILL CONTINUE TO FEEL BAD. STILL IF THEY WANT I WILL TRANSFER HER. HE WILL LET ME KNOW. STABLE FOR THE FLOOR. PROGNOSIS IS POOR. IMPROVED CREATIINE IS HIGHER BUT FROM MEDS. WILL BE BETTER ON HD. STABLE AND MANAGED BY RENAL MD. (2) Acute on chronic renal failure Onset Date: 09/18/17 Current Visit: No Status: Chronic Plan: WORSE GRADAULLY. GENTLE HYDRATION IMPROVED CREATININE OVERNIGHT. RENAL DOCTORS ARE MANAGING THE FLUIDS. CREATIINE IS HIGHER BUT MILDLY. CXR IS WORSE. LOW GRADE DIURESIS MANAGED BY RENAL DOCTORS. SHE WILL NEED HD BUT NEPRHOLOGIST ARE TRYING TO AVOID HD CATHETER AND DO IT WHEN HER SHUNT IS READY. SHEIS STABLE FOR NOW. DR THAKKAR IS GIVING IV TID LASIX 40 MG. K IS MILD LOW. (3) Anemia in chronic kidney disease Onset Date: 09/04/18 Current Visit: No Status: Acute Plan: HG LOWER, TO BE REDONE. WILL FU. MAY NEED BLOOD. HG IS 9 NOW. (4) Thrombocytopenia Onset Date: 09/04/18 Current Visit: No Status: Chronic Plan: MORBID OBEISTY , FATTY LIVER CAN GIVE RISE TO CIRRHOSIS OVERTIME AND SO THROMBOCYTOPENIA. WILL WATCH DAILY. SHE IS NOT A CANDIDATE FOR ANY INVASIVE TESTS LIKE BONE MARROW BIOPSY. SHE HAS RENAL FAILURE AND LOW PLATELETS. WILL RULE OUT A REMOTE POSSIBILITY OF HUS OR TTP. ORDER HAPTOGLOBULIN, LDH AND SMEAR. STABLE FOR NOW. (5) Pulmonary HTN Onset Date: 11/23/17 Current Visit: No Status: Chronic Plan: SEVERE, WORSE GRADUALLY. HAS BEEN ON MEDS FOR LONG TIME. DISCUSSED POOR PROGNOSIS WITH AND HE UNDERSTANDS THIS IS RAPID DECLINE IN HER CONDITION. STABLE AND WILL START PT. (6) Pickwickian syndrome Current Visit: Yes Status: Chronic Plan: OBESITY INDUCED HYPOVENTILATION SYNDROME. SEVERE HYPERCAPNEA. IN THE PAST I HAVE ASKED HER TO WATCH DIET AND LOSE WEIGHT. SHE TOLD ME A FEW WEEKS AGO THAT SHE WILL BE OBESE AND SHE DOES NOT LIKE ME TO REMIND HER TO WATCH DIET. SHE NOW IS TO A STAGE THAT SHE OVERALL WILL NOT DO WELL. SEVERE ISSUES. POOR PROGNOSIS. MULTIFACTORIAL ILLNESS. CKD FROM LITHIUM FOR BIPOLAR, SEVERE PULMONARY HTN, HYPERCAPNEA FROM SEVERE OBESITY.
[2018-09-15] MEDS: ALLOPURINOL 100 MG TAB PO SCH (20:42)
[2018-09-15] MEDS: TOLTERODINE LA 4 MG CAP PO SCH (20:42)
[2018-09-15] MEDS: LORATADINE 10 MG TAB PO SCH (20:42)
[2018-09-15] MEDS: ROSUVASTATIN 10 MG TAB PO SCH (20:42)
[2018-09-15] MEDS: MULTIVITAMIN TAB PO SCH (20:42)
[2018-09-15] MEDS: clonazePAM 0.5 MG TAB PO SCH (20:45)
[2018-09-15] MEDS ORDERED: POTASSIUM CL SA 10 MEQ TAB PO ONE (21:00)
[2018-09-16] MEDS: FUROSEMIDE 40 MG/4 ML VIAL IV SCH ×2 (00:10→08:42)
[2018-09-16 03:47] LABS: Absolute Lymphocytes (CBC) 1.1 K/uL (0.7-4.9); Absolute Monocytes 1.4 K/uL (0.1-1.3); Absolute Neutrophil 5.4 K/uL (1.8-8.0); Basophils % 0.6 % (0-1.3); Eosinophils % 1.7 % (0-4.4); Hematocrit 28.7 % (36.0-45.0); Lymphocytes % 13.5 % (15.3-44.8); MPV 7.5 fL (7.6-11.3); Monocytes % 17.5 % (3.3-12.3); RBC Red Blood Cell Count 3.02 M/uL (3.86-4.86)
[2018-09-16 03:55] LABS: Potassium 3.2 mmol/L (3.5-5.1)
[2018-09-16 04:36] LABS: Magnesium 1.6 mg/dL (1.8-2.4)
[2018-09-16] MEDS: KCL 20 MEQ/100 mL IVPB 20 MEQ/100 ML BAG IV SCH ×2 (05:32→07:30)
[2018-09-16] MEDS: LEVOTHYROXINE SOD 0.1 MG TAB PO SCH (05:32)
[2018-09-16 05:42] LABS: Blood Morphology Comment NOT SEEN (NOT SEEN); Platelet Estimate ADEQ
[2018-09-16] MEDS: GUAIFENESIN/DM 5 ML UCUP PO PRN ×2 (05:43→22:36)
[2018-09-16] MEDS: ICOSAPENT ETHYL 1 GM CAP PO SCH ×2 (08:42→16:12)
[2018-09-16] MEDS: DIVALPROEX DR 500MG TAB PO SCH ×2 (08:43→21:57)
[2018-09-16] MEDS: ASPIRIN EC 81 MG TAB PO SCH (08:43)
[2018-09-16] MEDS: CALCIUM CARBONATE 500 MG TAB PO SCH (08:43)
[2018-09-16] MEDS: PANTOPRAZOLE 40MG TABLET PO SCH (08:43)
[2018-09-16] MEDS: VITAMIN D 1000 UNIT TAB PO SCH (08:43)
[2018-09-16] MEDS ORDERED: MAGNESIUM SULFATE 1 gm IVPB 1 GM/100 ML BAG IV ONE (09:30)
[2018-09-16 12:24] LABS: Potassium 4.1 mmol/L (3.5-5.1)
[2018-09-16] MEDS: FUROSEMIDE 100 MG in NA CHLORIDE 0.9% 90 ML IV SCH ×2 (12:26→20:20)
--- NOTE | 2018-09-16 13:41 | P.PN ---
Subjective Date of Service: 09/16/18 Chief Complaint: LOT BETTER. Subjective: Improving CARMINE IS ABOUT THE SAME. WEAK, LAYING IN BED, NO DYSPNEA NO CHEST PAIN. SHE IS STABLE BUT GRADUALLY IMPROVING. NO FEVER, NO COUGH. SHE IS FEELING BETTER, LESS FATIGUED, COUGH IS BETTER ALSO. SHE IS SITTING UP AND EATING BREAKFAST. SHE WALKED WELL YESTERDAY. STARTING TO MAKE SENSE NOW. ASKING FOR PLAN. I TOLD HER THAT DR BURROWS AND DR. THAKKAR PLAN FOR LTAC TO AVOID HD FOR A MONTH. SHE NEEDS DIURESIS BUT ORAL DID NOT WORK. SHE IS LAYING BED TODAY. Review of Systems 10-point ROS is otherwise unremarkable General: Weakness, Malaise Physical Examination - Vital Signs Temperature: 98.2 F Blood Pressure: 129/61 Pulse: 93 Respirations: 19 Pulse Ox (%): 95 - Physical Exam General: Alert, Mild distress, Obese HEENT: Atraumatic, PERRLA, EOMI Neck: Supple, JVD not distended Respiratory: Clear to auscultation bilaterally, Normal air movement Cardiovascular: Regular rate/rhythm, Normal S1 S2 Gastrointestinal: Normal bowel sounds, No tenderness Musculoskeletal: No tenderness Integumentary: No rashes Neurological: Normal speech, Normal tone, Normal affect Lymphatics: No axilla or inguinal lymphadenopathy - Studies Medications List Reviewed: Yes Assessment And Plan - Current Problems (Diagnosis) (1) Dyspnea Current Visit: Yes Status: Suspected Plan: CLINICALLY SHE HAS DRY MUCOUS MEMBRANES BUT SHE IS DYSPNEIC. I BELIEVE THIS CAN BE FROM HYPERCAPNEA AND REDUCED BREATH SOUNDS FROM OBESITY. SHE HAS SEVERE PULMONARY HTN THAT IS GETTING WORSE. DR. WINTERS IS GIVING LASIX DRIP HE THINKS THERE MAY BE SOME FLUID OVERLOAD PER X. RAY. PROGNOSIS IS POOR. I TALKED TO . CARMINE ASKED IF SHE SHOULD GO TO [facility]. I TOLD HER AND THAT [facility] MAY NOT MAKE ANY DIFFERENCE IN HER CONDITION AND SHE WILL CONTINUE TO FEEL BAD. STILL IF THEY WANT I WILL TRANSFER HER. HE WILL LET ME KNOW. STABLE FOR THE FLOOR. PROGNOSIS IS POOR. IMPROVED CREATIINE IS HIGHER BUT FROM MEDS. WILL BE BETTER ON HD. STABLE AND MANAGED BY RENAL MD. NO MORE DYSPNEA ANY LONGER. (2) Acute on chronic renal failure Onset Date: 09/18/17 Current Visit: No Status: Chronic Plan: WORSE GRADAULLY. GENTLE HYDRATION IMPROVED CREATININE OVERNIGHT. RENAL DOCTORS ARE MANAGING THE FLUIDS. CREATIINE IS HIGHER BUT MILDLY. CXR IS WORSE. LOW GRADE DIURESIS MANAGED BY RENAL DOCTORS. SHE WILL NEED HD BUT NEPRHOLOGIST ARE TRYING TO AVOID HD CATHETER AND DO IT WHEN HER SHUNT IS READY. SHEIS STABLE FOR NOW. DR THAKKAR IS GIVING IV TID LASIX 40 MG. K IS MILD LOW. BUN CREAT HAS GRADUALLY INCREASED SUSPECTED IT WILL STABLE FOR NOW. WAITING FOR LTAC. (3) Anemia in chronic kidney disease Onset Date: 09/04/18 Current Visit: No Status: Acute Plan: HG LOWER, TO BE REDONE. WILL FU. MAY NEED BLOOD. HG IS 9 NOW. STABLE . (4) Thrombocytopenia Onset Date: 09/04/18 Current Visit: No Status: Chronic Plan: MORBID OBEISTY , FATTY LIVER CAN GIVE RISE TO CIRRHOSIS OVERTIME AND SO THROMBOCYTOPENIA. WILL WATCH DAILY. SHE IS NOT A CANDIDATE FOR ANY INVASIVE TESTS LIKE BONE MARROW BIOPSY. SHE HAS RENAL FAILURE AND LOW PLATELETS. WILL RULE OUT A REMOTE POSSIBILITY OF HUS OR TTP. ORDER HAPTOGLOBULIN, LDH AND SMEAR. STABLE FOR NOW. (5) Pulmonary HTN Onset Date: 11/23/17 Current Visit: No Status: Chronic Plan: SEVERE, WORSE GRADUALLY. HAS BEEN ON MEDS FOR LONG TIME. DISCUSSED POOR PROGNOSIS WITH AND HE UNDERSTANDS THIS IS RAPID DECLINE IN HER CONDITION. STABLE AND WILL START PT. NO CHANGES. (6) Pickwickian syndrome Current Visit: Yes Status: Chronic Plan: OBESITY INDUCED HYPOVENTILATION SYNDROME. SEVERE HYPERCAPNEA. IN THE PAST I HAVE ASKED HER TO WATCH DIET AND LOSE WEIGHT. SHE TOLD ME A FEW WEEKS AGO THAT SHE WILL BE OBESE AND SHE DOES NOT LIKE ME TO REMIND HER TO WATCH DIET. SHE NOW IS TO A STAGE THAT SHE OVERALL WILL NOT DO WELL. SEVERE ISSUES. POOR PROGNOSIS. MULTIFACTORIAL ILLNESS. CKD FROM LITHIUM FOR BIPOLAR, SEVERE PULMONARY HTN, HYPERCAPNEA FROM SEVERE OBESITY.
[2018-09-16] MEDS ORDERED: EPOETIN ALFA 10,000 UNIT/ML VIAL SQ SCH (15:00)
[2018-09-16 16:46] LABS: Arterial Blood Carboxyhemoglob 2.2 % (0-1.5); Blood Gas Oxyhemoglobin 92.7 % (94-97); Blood O2 Saturation 95.7 % (92-98.5)
[2018-09-16] MEDS ORDERED: POTASSIUM CL SA 10 MEQ TAB PO ONE (17:22)
[2018-09-16] MEDS: ALLOPURINOL 100 MG TAB PO SCH (21:57)
[2018-09-16] MEDS: ROSUVASTATIN 10 MG TAB PO SCH (21:57)
[2018-09-16] MEDS: LORATADINE 10 MG TAB PO SCH (21:57)
[2018-09-16] MEDS: MULTIVITAMIN TAB PO SCH (21:57)
[2018-09-16 22:05] LABS: Arterial Blood Carboxyhemoglob 1.9 % (0-1.5); Blood Gas Oxyhemoglobin 80.7 % (94-97); Blood O2 Saturation 83.2 % (92-98.5)
[2018-09-16] MEDS: TOLTERODINE LA 4 MG CAP PO SCH (22:08)
--- NOTE | 2018-09-17 02:20 | PN ---
Date of Progress Note: 09/16/2018 Chief Complaint: Shortness of breath, generalized fatigue, legs edema. The patient today is not obt unded. She is responding to voice, although she is complaining of generalized fatigue. She denies w heezing or rhonchi. Physical Examination: Lungs: Few crackles at bases. Heart: S1 and S2. Abdomen: Soft, benign. Extremities: Edema present in both legs. Laboratory Work: Hemoglobin 9.5, WBC 8.1, platelet count is 167,000. Sodium 144, potassium 3.2, chl oride 97, CO2 of 40, BUN 96, creatinine 3.49, glucose 123, magnesium 1.6. Impression And Plan: 1.Acute on chronic kidney injury with cardiorenal syndrome, fluid overload, anasarca, . W e will continue Lasix drip. 2.Hypokalemia. Replacement as needed. 3.Hypomagnesemia. Monitor magnesium level and adjust replacement. 4.Deconditioning. Per primary team, the patient is undergoing rehab. 5.Altered mental status. The patient will have workup to check for any possible evidence of obstruc tive bronchitis, and ABG will be done to rule out metabolic acidosis. EB/MODL Voice ID: [id number] Report ID: [id number]
[2018-09-17 05:40] LABS: Potassium 3.6 mmol/L (3.5-5.1)
[2018-09-17] MEDS: LEVOTHYROXINE SOD 0.1 MG TAB PO SCH (06:04)
[2018-09-17] MEDS ORDERED: POTASSIUM CL SA 10 MEQ TAB PO ONE (08:00)
[2018-09-17] MEDS: PANTOPRAZOLE 40MG TABLET PO SCH (09:33)
[2018-09-17] MEDS: ICOSAPENT ETHYL 1 GM CAP PO SCH ×2 (09:34→16:41)
[2018-09-17] MEDS: SPIRONOLACTONE 25 MG TABLET PO SCH (09:34)
[2018-09-17] MEDS: DIVALPROEX DR 500MG TAB PO SCH ×2 (09:35→22:50)
[2018-09-17] MEDS: VITAMIN D 1000 UNIT TAB PO SCH (09:35)
[2018-09-17] MEDS: ASPIRIN EC 81 MG TAB PO SCH (09:35)
[2018-09-17] MEDS: CALCIUM CARBONATE 500 MG TAB PO SCH (09:35)
[2018-09-17] MEDS ORDERED: ACETAZOLAMIDE 500 MG IV IV ONE (12:36)
--- NOTE | 2018-09-17 13:10 | P.PN ---
Subjective Date of Service: 09/17/18 Chief Complaint: WORSE LAST NIGHT. CARMINE IS ABOUT THE SAME. WEAK, LAYING IN BED, NO DYSPNEA NO CHEST PAIN. SHE IS STABLE BUT GRADUALLY IMPROVING. NO FEVER, NO COUGH. SHE IS FEELING BETTER, LESS FATIGUED, COUGH IS BETTER ALSO. SHE IS SITTING UP AND EATING BREAKFAST. SHE WALKED WELL YESTERDAY. STARTING TO MAKE SENSE NOW. ASKING FOR PLAN. I TOLD HER THAT DR BURROWS AND DR. THAKKAR PLAN FOR LTAC TO AVOID HD FOR A MONTH. SHE NEEDS DIURESIS BUT ORAL DID NOT WORK. SHE IS LAYING BED TODAY. SHE GOT CONFUSED, [place] LASTNIGHT. ABG SHOWED CO2 RETENTION. SHE IS LOT BETTER AFTER BIPAP AND REDUCTION OF OXYGEN. Review of Systems 10-point ROS is otherwise unremarkable General: Weakness, Malaise Physical Examination - Vital Signs Temperature: 97.5 F Blood Pressure: 117/65 Pulse: 92 Respirations: 18 Pulse Ox (%): 100 - Physical Exam General: Alert, Mild distress, Obese HEENT: Atraumatic, PERRLA, EOMI Neck: Supple, JVD not distended Respiratory: Diminished Cardiovascular: Regular rate/rhythm, Normal S1 S2 Gastrointestinal: Normal bowel sounds, No tenderness Musculoskeletal: No tenderness Integumentary: No rashes Neurological: Normal speech, Normal tone, Normal affect Lymphatics: No axilla or inguinal lymphadenopathy - Studies Medications List Reviewed: Yes Assessment And Plan - Current Problems (Diagnosis) (1) Dyspnea Current Visit: Yes Status: Suspected Plan: CLINICALLY SHE HAS DRY MUCOUS MEMBRANES BUT SHE IS DYSPNEIC. I BELIEVE THIS CAN BE FROM HYPERCAPNEA AND REDUCED BREATH SOUNDS FROM OBESITY. SHE HAS SEVERE PULMONARY HTN THAT IS GETTING WORSE. DR. WINTERS IS GIVING LASIX DRIP HE THINKS THERE MAY BE SOME FLUID OVERLOAD PER X. RAY. PROGNOSIS IS POOR. I TALKED TO . CARMINE ASKED IF SHE SHOULD GO TO [place] [facility]. I TOLD HER AND THAT [facility] MAY NOT MAKE ANY DIFFERENCE IN HER CONDITION AND SHE WILL CONTINUE TO FEEL BAD. STILL IF THEY WANT I WILL TRANSFER HER. HE WILL LET ME KNOW. STABLE FOR THE FLOOR. PROGNOSIS IS POOR. IMPROVED CREATIINE IS HIGHER BUT FROM MEDS. WILL BE BETTER ON HD. STABLE AND MANAGED BY RENAL MD. NO MORE DYSPNEA ANY LONGER. CO2 RETENTION MANAGED IN HPI. METABOLIC ALKALOSIS IS POSSIBLY MAKING IT WORSE. PLAN PER NEPHROLOGISTS. (2) Acute on chronic renal failure Onset Date: 09/18/17 Current Visit: No Status: Chronic Plan: WORSE GRADAULLY. GENTLE HYDRATION IMPROVED CREATININE OVERNIGHT. RENAL DOCTORS ARE MANAGING THE FLUIDS. CREATIINE IS HIGHER BUT MILDLY. CXR IS WORSE. LOW GRADE DIURESIS MANAGED BY RENAL DOCTORS. SHE WILL NEED HD BUT NEPRHOLOGIST ARE TRYING TO AVOID HD CATHETER AND DO IT WHEN HER SHUNT IS READY. SHEIS STABLE FOR NOW. DR THAKKAR IS GIVING IV TID LASIX 40 MG. K IS MILD LOW. BUN CREAT HAS GRADUALLY INCREASED SUSPECTED IT WILL STABLE FOR NOW. WAITING FOR LTAC. (3) Anemia in chronic kidney disease Onset Date: 09/04/18 Current Visit: No Status: Acute Plan: HG LOWER, TO BE REDONE. WILL FU. MAY NEED BLOOD. HG IS 9 NOW. STABLE . (4) Thrombocytopenia Onset Date: 09/04/18 Current Visit: No Status: Chronic Plan: MORBID OBEISTY , FATTY LIVER CAN GIVE RISE TO CIRRHOSIS OVERTIME AND SO THROMBOCYTOPENIA. WILL WATCH DAILY. SHE IS NOT A CANDIDATE FOR ANY INVASIVE TESTS LIKE BONE MARROW BIOPSY. SHE HAS RENAL FAILURE AND LOW PLATELETS. WILL RULE OUT A REMOTE POSSIBILITY OF HUS OR TTP. ORDER HAPTOGLOBULIN, LDH AND SMEAR. STABLE FOR NOW. (5) Pulmonary HTN Onset Date: 11/23/17 Current Visit: No Status: Chronic Plan: SEVERE, WORSE GRADUALLY. HAS BEEN ON MEDS FOR LONG TIME. DISCUSSED POOR PROGNOSIS WITH AND HE UNDERSTANDS THIS IS RAPID DECLINE IN HER CONDITION. STABLE AND WILL START PT. NO CHANGES. (6) Pickwickian syndrome Current Visit: Yes Status: Chronic Plan: OBESITY INDUCED HYPOVENTILATION SYNDROME. SEVERE HYPERCAPNEA. IN THE PAST I HAVE ASKED HER TO WATCH DIET AND LOSE WEIGHT. SHE TOLD ME A FEW WEEKS AGO THAT SHE WILL BE OBESE AND SHE DOES NOT LIKE ME TO REMIND HER TO WATCH DIET. SHE NOW IS TO A STAGE THAT SHE OVERALL WILL NOT DO WELL. SEVERE ISSUES. POOR PROGNOSIS. MULTIFACTORIAL ILLNESS. CKD FROM LITHIUM FOR BIPOLAR, SEVERE PULMONARY HTN, HYPERCAPNEA FROM SEVERE OBESITY.
[2018-09-17] MEDS ORDERED: WATER FOR INJ,STERILE 10 ML ONE (13:30)
[2018-09-17] MEDS: ROSUVASTATIN 10 MG TAB PO SCH (22:49)
[2018-09-17] MEDS: LORATADINE 10 MG TAB PO SCH (22:50)
[2018-09-17] MEDS: ALLOPURINOL 100 MG TAB PO SCH (22:50)
[2018-09-17] MEDS: MULTIVITAMIN TAB PO SCH (22:50)
[2018-09-17] MEDS: TOLTERODINE LA 4 MG CAP PO SCH (22:50)
--- NOTE | 2018-09-18 04:10 | PN ---
Date of Progress Note: 09/17/2018 Chief Complaint: Acute kidney injury on advanced chronic kidney disease, Cardiorenal syndrome, and a nasarca. Subjective: The patient was found to have severe respiratory acidosis. She was started on BiPAP. T he patient today is on Diamox. She completed Lasix drip. Review of Systems: Constitutional: Denies fever, chills. She is complaining of generalized weakness, fatigue, and somn olence. Lungs: Crackles bilaterally present. Heart: S1, S2. Abdomen: Soft, benign. Extremities: Anasarca. Lab Work: Sodium 143, potassium 3.6, chloride 99, CO2 41, BUN 100, creatinine 3.63, calcium 8.5, and magnesium 2.0. Impression And Plan: Acute on chronic kidney injury, severe prerenal azotemia. Plan is to stop Lasi x drip and the patient will have Diamox for metabolic alkalosis. The patient although may need to st art dialysis. There is persistent hyperazotemia. Plan is to start mild hydration. The patient curr ently has good p.o. intake. Continue hydration by mouth. Diuretic on hold. EB/MODL Voice ID: [id number] Report ID: [id number]
[2018-09-18] MEDS: LEVOTHYROXINE SOD 0.1 MG TAB PO SCH (05:17)
[2018-09-18] MEDS: PANTOPRAZOLE 40MG TABLET PO SCH (05:18)
[2018-09-18 05:40] LABS: Potassium 3.4 mmol/L (3.5-5.1)
[2018-09-18] MEDS ORDERED: POTASSIUM CL SA 10 MEQ TAB PO ONE (05:50)
--- NOTE | 2018-09-18 08:28 | P.PN ---
Subjective Date of Service: 09/18/18 Chief Complaint: Respiratory failure Subjective: Improving (Patient improving a little confused states that she has 3 BiPAP at home appears to be very comfortable) Review of Systems General: Weakness Respiratory: Shortness of Breath Physical Examination - Vital Signs Temperature: 98.2 F Blood Pressure: 132/61 Pulse: 87 Respirations: 20 Pulse Ox (%): 100 - Physical Exam General: Alert, In no apparent distress, Oriented x3 Respiratory: Clear to auscultation bilaterally, Diminished Cardiovascular: Edema - Studies Medications List Reviewed: Yes Assessment & Plan - Problems (Diagnosis) (1) Respiratory failure Current Visit: Yes Status: Acute Plan: Patient has chronic respiratory failure hypoxemia hypercapnia pulmonary hypertension resume home Adcirca. Patient to use her own BiPAP patient is stable to be transferred Qualifiers: Chronicity: acute on chronic
[2018-09-18] MEDS ORDERED: HOME MED 1 EA UNK (L.Acidoph,Paracasei, B.Lactis [Probiotic] 1 EACH) PO SCH (09:00)
[2018-09-18] MEDS: SPIRONOLACTONE 25 MG TABLET PO SCH (09:34)
[2018-09-18] MEDS: CALCIUM CARBONATE 500 MG TAB PO SCH (09:35)
[2018-09-18] MEDS: DIVALPROEX DR 500MG TAB PO SCH ×2 (09:36→22:13)
[2018-09-18] MEDS: ASPIRIN EC 81 MG TAB PO SCH (09:36)
[2018-09-18] MEDS: VITAMIN D 1000 UNIT TAB PO SCH (09:36)
[2018-09-18] MEDS: ICOSAPENT ETHYL 1 GM CAP PO SCH ×2 (09:38→17:00)
--- NOTE | 2018-09-18 12:35 | P.PN ---
Subjective Date of Service: 09/18/18 Chief Complaint: Respiratory failure Subjective: No new changes pt with CKD IV, with fluid overload on admission was on lasix drip and Bun/cr trending up , now looks euvolemic had rt AVF , unlikely mature lasix dc yesterday high Bun, not on steroids , Hb stable , will order reanl Us to R/O obstructive uropathy though it is less likely as pt have sanz cath with good uo Physical Examination - Vital Signs Temperature: 98.2 F Blood Pressure: 127/58 Pulse: 89 Respirations: 20 Pulse Ox (%): 100 - Physical Exam General: Alert, In no apparent distress, Oriented x2, Oriented x1 HEENT: Atraumatic Neck: Supple, Without JVD or thyroid abnormality Respiratory: Clear to auscultation bilaterally Cardiovascular: No edema, Regular rate/rhythm, No rubs, No murmurs, Other Musculoskeletal: Other (b/l LE swelling , no edema, with chronic skin changes ) - Studies Medications List Reviewed: Yes Assessment And Plan - Current Problems (Diagnosis) (1) Altered mental status Onset Date: 09/04/18 Current Visit: No Status: Acute (2) Anemia in chronic kidney disease Onset Date: 09/04/18 Current Visit: No Status: Acute (3) Chronic kidney disease Onset Date: 09/04/18 Current Visit: No Status: Acute - Plan MISBAH on CKD IV initially cardiorenal bun/cr cont to trend up lasix on hold not on steroids, Hb stable will get renal us pt with Rt AVF , unmature I discussed with that pt will need to start HD if RFT cont to trend up no need for urgent ROLL ICER at this time keep sanz for now hypokalemia Mg wnl replaced likely due to diuresis anemia Completed Iv iron NOVA Co2 retention bicarb stable now pulmonary fu
[2018-09-18] MEDS ORDERED: POTASSIUM 25 MEQ EFFERV TAB PO ONE (12:37)
--- NOTE | 2018-09-18 12:49 | P.DS ---
Admission Date: 09/09/18 Discharge Date: 09/18/18 Disposition: [facility] Discharge Condition: SERIOUS Reason for Admission: Respiratory failure - Problems (1) Dyspnea Current Visit: Yes Status: Suspected (2) Acute on chronic renal failure Onset Date: 09/18/17 Current Visit: No Status: Chronic (3) Anemia in chronic kidney disease Onset Date: 09/04/18 Current Visit: No Status: Acute (4) Thrombocytopenia Onset Date: 09/04/18 Current Visit: No Status: Chronic (5) Pulmonary HTN Onset Date: 11/23/17 Current Visit: No Status: Chronic (6) Pickwickian syndrome Current Visit: Yes Status: Chronic Brief History of Present Illness: SHE HAS FELT WEAKER AND HAS MORE DYSPNEA LATELY. SHE IS MORBIDLY OBESE LADY WITH PULMONARY ARTERIAL HYPERTENSION BY HISTORY MANAGED WITH ADCIRCA, GRADUALLY GETTING WORSE. SHE COMES BACK TO HOSPITAL WITH NOT FEELING WELL. SHE HAS NO CHEST PAIN BUT HAS MILD TACHYPNEA. MS. DELACRUZ IS MORBIDLY OBESE LADY WHO HAS HYPERCAPNEA FROM HYPOVENTILATION SYNDROME, SEVERE PULMONARY HTN, RENAL FAILURE FROM LITHIUM THERAPY FOR BIPOLAR DISEASE, COMES WITH LETHARGY, RENAL FAILURE, CHF FROM IT, IT TAKES DAYS AND FLUCTUATING COURSE TO CLEAR HER LUNGS. NEPHROLOGISTS ARE TRYING TO DELAY HEMODIALYSIS UNTIL THE SHUNT IS READY. HER BUN AND CREATININE ARE HIGH FROM SLOW DIURESIS. SHE NEEDS BIPAP FOR SEVERE CO2 RETENTION. SHE IS STABLE FOR LTAC THEY WANT TO CONTINUE LOW GRADE DIURESIS FOR HER WITH IV DRIP OF LASIX. DW AND PATIENT A FEW TIMES. SHE HAS ASYMPTOMATIC BACTERIURIA NOT NEEDING THERAPY PER GUIDELINES. Vital Signs/Physical Exam: Temp Pulse Resp BP Pulse Ox 98.2 F 89 20 127/58 L 100 09/18/18 12:42 09/18/18 12:42 09/18/18 12:42 09/18/18 12:42 09/18/18 12:42 Laboratory Data at Discharge: WBC 8.1 K/uL (4.3-10.9) 09/16/18 03:15 Hgb 9.5 g/dL (12.0-15.0) L 09/16/18 03:15 Hct 28.7 % (36.0-45.0) L 09/16/18 03:15 Plt Count 167 K/uL (152-406) 09/16/18 03:15 PT 14.0 SECONDS (9.5-12.5) H 09/08/18 17:15 INR 1.19 09/08/18 17:15 Sodium 146 mmol/L (136-145) H 09/18/18 04:20 Potassium 3.4 mmol/L (3.5-5.1) L 09/18/18 04:20 BUN 108 mg/dL (7-18) H 09/18/18 04:20 Creatinine 3.60 mg/dL (0.55-1.3) H 09/18/18 04:20 Glucose 121 mg/dL (74-106) H 09/18/18 04:20 Phosphorus 4.5 mg/dL (2.5-4.9) 09/14/18 05:06 Magnesium 2.0 mg/dL (1.8-2.4) 09/17/18 04:50 Total Bilirubin 0.2 mg/dL (0.2-1.0) 09/08/18 17:15 AST 9 U/L (15-37) L 09/08/18 17:15 ALT 9 U/L (12-78) L 09/08/18 17:15 Alkaline Phosphatase 70 U/L (45-117) 09/08/18 17:15 Home Medications: Adcirca 20mg 2 tab PO BEDTIME 09/03/18 Allopurinol [Zyloprim*] 100 mg PO BEDTIME 09/03/18 Ascorbic Acid [Vitamin C] 500 mg PO DAILY 09/03/18 Aspirin [Aspir-Low] 81 mg PO DAILY 09/03/18 Calcium Carbonate [Calcium] 2 tab PO DAILY 09/03/18 Cholecalciferol (Vitamin D3) [Vitamin D3] 2,000 unit PO DAILY 09/03/18 Cyclosporine [Restasis] 1 drop EACH EYE BID 09/03/18 Divalproex Sodium [Depakote] 1,000 mg PO BEDTIME 09/03/18 Divalproex Sodium [Depakote] 500 mg PO DAILY 09/03/18 Esomeprazole Mag Trihydrate [Nexium] 40 mg PO DAILY 09/03/18 Icosapent Ethyl [Vascepa] 2 cap PO BID 09/03/18 Ipratropium [Atrovent 0.03% (21MCG)/[place] Nasal*] 2 sprays NS TID 09/03/18 L.acidoph,Paracasei, B.lactis [Probiotic] 1 each PO DAILY 09/03/18 Levothyroxine Sodium 100 mcg PO DAILY 09/03/18 Loratadine [Claritin*] 10 mg PO BEDTIME 09/03/18 Multivitamin [Multivitamins] 1 each PO BEDTIME 09/03/18 Nebivolol HCl [Bystolic*] 20 mg PO DAILY 09/03/18 Olopatadine HCl [Patanase] 2 spray NS BID 09/03/18 Rosuvastatin Calcium [Crestor] 40 mg PO BEDTIME 09/03/18 Tolterodine Tartrate [Detrol LA*] 4 mg PO BEDTIME 09/03/18 Tramadol HCl [Ultram] 50 mg PO Q8H PRN 09/03/18 clonazePAM [Klonopin] 0.5 mg PO BEDTIME 09/03/18 Diet: Renal
[2018-09-18] MEDS: SOD FERRIC GLUC COMPLX/SUCROSE 250 MG in NA CHLORIDE 0.9% 250 ML IV SCH (13:39)
--- NOTE | 2018-09-18 13:51 | RAD REPORT ---
EXAM DESCRIPTION: US - Renal Ultrasound-Complete - 09/18/2018 1:35 pm CLINICAL HISTORY: MISBAH Flank pain COMPARISON: Renal Ultrasound-Complete dated 08/07/2018 FINDINGS: Both kidneys demonstrate increased echogenicity, compatible with medical renal disease. The right kidney measures 10.8 x 6.4 x 6.0 cm. No hydronephrosis. Several benign renal cysts. The left kidney measures 11.1 x 6.3 x 5.0 cm. No hydronephrosis. Several benign renal cysts. The urinary bladder is incompletely distended without gross abnormality seen. IMPRESSION: Bilateral echogenic kidneys are present compatible with underlying medical renal disease .
[2018-09-18] MEDS: LORATADINE 10 MG TAB PO SCH (22:14)
[2018-09-18] MEDS: MULTIVITAMIN TAB PO SCH (22:14)
[2018-09-18] MEDS: TOLTERODINE LA 4 MG CAP PO SCH (22:14)
[2018-09-18] MEDS: ALLOPURINOL 100 MG TAB PO SCH (22:14)
[2018-09-19] MEDS: PANTOPRAZOLE 40MG TABLET PO SCH (05:18)
[2018-09-19] MEDS: LEVOTHYROXINE SOD 0.1 MG TAB PO SCH (05:18)
[2018-09-19 05:46] LABS: Phosphorus 2.7 mg/dL (2.5-4.9); Potassium 4.3 mmol/L (3.5-5.1)
[2018-09-19] MEDS: VITAMIN D 1000 UNIT TAB PO SCH (09:39)
[2018-09-19] MEDS: DIVALPROEX DR 500MG TAB PO SCH ×2 (09:39→22:07)
[2018-09-19] MEDS: ASPIRIN EC 81 MG TAB PO SCH (09:40)
[2018-09-19] MEDS: CALCIUM CARBONATE 500 MG TAB PO SCH (09:40)
[2018-09-19] MEDS: SPIRONOLACTONE 25 MG TABLET PO SCH (09:40)
[2018-09-19] MEDS: ICOSAPENT ETHYL 1 GM CAP PO SCH ×2 (09:40→17:00)
--- NOTE | 2018-09-19 16:19 | PN ---
Date of Progress Note: 09/19/2018 Subjective: The patient was admitted with altered mental status, hypercapnic respiratory failure. The patient was maintained on Lasix drip, weaned from the Lasix drip. The patient is more awake today. Physical Examination: Vital Signs: When I saw the patient, blood pressure 131/63, pulse of 95. Chest: Faint crackles on the base. Heart: S1, S2 regular. Abdomen: Soft, nontender. Extremities: Trace edema. Laboratory Data: H and H 9.5/28.7. Sodium 147, potassium 4.3, bicarb 29, BUN 100, creatinine of 3.4, GFR of 14, calcium 8.8, phos were 2.7. Current Medications: The patient on include aspirin, loratadine, Epogen, calcium carbonate, spironolactone, Tylenol, Zofran, pantoprazole, levothyroxine , allopurinol, Cholecalciferol and multivitamin. Assessment And Plan: Chronic kidney disease stage 5 progression to end-stage renal disease. The patient will require dialysis shortly. I had long discussion with the patient and the by bedside, agreed to initiate dialysis in this hospitalization. Unfortunately, with insurance presentation, I am going to speak to the medical claims specialist of insurance to see if that can be approved. Otherwise, we will arrange for the patient fore PC placement as out pt _. The patient to follow up closely in the office in a week or so, then hopefully we can initiate dialysis as out patient. 1. Hypertension, controlled, optimal continue, current medication. 2. Chronic obstructive pulmonary disease exacerbation, recovered, stabilized. 3. Altered mental status secondary to hypercapnic respiratory failure, chronic obstructive pulmonary disease exacerbation, uremia. We will monitor the patient as above. 4. Congestive heart failure. Lasix on hold. We will resume Lasix on low dose of 40 mg daily and we will follow up. MEGAN/HAYLIE Voice ID: [id number] Report ID: [id number] JALEN
--- NOTE | 2018-09-19 17:27 | P.PN ---
Subjective Date of Service: 09/19/18 Chief Complaint: Dyspnea. Subjective: Improving CARMINE IS ABOUT THE SAME. WEAK, LAYING IN BED, NO DYSPNEA NO CHEST PAIN. SHE IS STABLE BUT GRADUALLY IMPROVING. NO FEVER, NO COUGH. SHE IS FEELING BETTER, LESS FATIGUED, COUGH IS BETTER ALSO. SHE IS SITTING UP AND EATING BREAKFAST. SHE WALKED WELL YESTERDAY. STARTING TO MAKE SENSE NOW. ASKING FOR PLAN. I TOLD HER THAT DR BURROWS AND DR. THAKKAR PLAN FOR LTAC TO AVOID HD FOR A MONTH. SHE NEEDS DIURESIS BUT ORAL DID NOT WORK. SHE IS LAYING BED TODAY. SHE GOT CONFUSED, [place] LASTNIGHT. ABG SHOWED CO2 RETENTION. SHE IS LOT BETTER AFTER BIPAP AND REDUCTION OF OXYGEN. CARMINE IS DOING A LOT BETTER BUT NOT READY YET. INSURANCE COMPANY REJECTED OUR OFFER FOR LTAC FOR LASIX DRIP AND PT. DR. WINTERS IS CALLING [facility] [employer] [facility] TO APPROVE HD HERE. WE ARE STILL WAITING FOR INSURANCE [employer] TO TAKE SOME STEPS IN DIRECTION OF DISCHARGE PLANNING. Review of Systems 10-point ROS is otherwise unremarkable General: Weakness, Malaise Physical Examination - Vital Signs Temperature: 97.2 F Blood Pressure: 120/59 Pulse: 87 Respirations: 18 Pulse Ox (%): 99 - Physical Exam General: Alert, Mild distress, Obese HEENT: Atraumatic, PERRLA, EOMI Neck: Supple, JVD not distended Respiratory: Clear to auscultation bilaterally, Normal air movement Cardiovascular: Regular rate/rhythm, Normal S1 S2 Gastrointestinal: Normal bowel sounds, No tenderness Musculoskeletal: No tenderness Integumentary: No rashes Neurological: Normal speech, Normal tone, Normal affect Lymphatics: No axilla or inguinal lymphadenopathy - Studies Medications List Reviewed: Yes Assessment And Plan - Current Problems (Diagnosis) (1) Dyspnea Current Visit: Yes Status: Suspected Plan: CLINICALLY SHE HAS DRY MUCOUS MEMBRANES BUT SHE IS DYSPNEIC. I BELIEVE THIS CAN BE FROM HYPERCAPNEA AND REDUCED BREATH SOUNDS FROM OBESITY. SHE HAS SEVERE PULMONARY HTN THAT IS GETTING WORSE. DR. WINTERS IS GIVING LASIX DRIP HE THINKS THERE MAY BE SOME FLUID OVERLOAD PER X. RAY. PROGNOSIS IS POOR. I TALKED TO . CARMINE ASKED IF SHE SHOULD GO TO SHORTER. I TOLD HER AND THAT SHORTER MAY NOT MAKE ANY DIFFERENCE IN HER CONDITION AND SHE WILL CONTINUE TO FEEL BAD. STILL IF THEY WANT I WILL TRANSFER HER. HE WILL LET ME KNOW. STABLE FOR THE FLOOR. PROGNOSIS IS POOR. IMPROVED CREATIINE IS HIGHER BUT FROM MEDS. WILL BE BETTER ON HD. STABLE AND MANAGED BY RENAL MD. NO MORE DYSPNEA ANY LONGER. CO2 RETENTION MANAGED IN HPI. METABOLIC ALKALOSIS IS POSSIBLY MAKING IT WORSE. PLAN PER NEPHROLOGISTS. (2) Acute on chronic renal failure Onset Date: 09/18/17 Current Visit: No Status: Chronic Plan: WORSE GRADAULLY. GENTLE HYDRATION IMPROVED CREATININE OVERNIGHT. RENAL DOCTORS ARE MANAGING THE FLUIDS. CREATIINE IS HIGHER BUT MILDLY. CXR IS WORSE. LOW GRADE DIURESIS MANAGED BY RENAL DOCTORS. SHE WILL NEED HD BUT NEPRHOLOGIST ARE TRYING TO AVOID HD CATHETER AND DO IT WHEN HER SHUNT IS READY. SHEIS STABLE FOR NOW. DR THAKKAR IS GIVING IV TID LASIX 40 MG. K IS MILD LOW. BUN CREAT HAS GRADUALLY INCREASED SUSPECTED IT WILL STABLE FOR NOW. WAITING FOR LTAC. INSURANCE DECISION IS PENDING REGARDING HER CARE. THEY REFUSED LTAC AND NOW WE ARE WAITING FOR LOCAL CARE PLANNING APPROVAL BY THEM. (3) Anemia in chronic kidney disease Onset Date: 09/04/18 Current Visit: No Status: Acute Plan: HG LOWER, TO BE REDONE. WILL FU. MAY NEED BLOOD. HG IS 9 NOW. STABLE . Qualifiers: Chronic kidney disease stage: stage 5, not on chronic dialysis Qualified Code(s): N18.5 - Chronic kidney disease, stage 5; D63.1 - Anemia in chronic kidney disease (4) Thrombocytopenia Onset Date: 09/04/18 Current Visit: No Status: Chronic Plan: MORBID OBEISTY , FATTY LIVER CAN GIVE RISE TO CIRRHOSIS OVERTIME AND SO THROMBOCYTOPENIA. WILL WATCH DAILY. SHE IS NOT A CANDIDATE FOR ANY INVASIVE TESTS LIKE BONE MARROW BIOPSY. SHE HAS RENAL FAILURE AND LOW PLATELETS. WILL RULE OUT A REMOTE POSSIBILITY OF HUS OR TTP. ORDER HAPTOGLOBULIN, LDH AND SMEAR. STABLE FOR NOW. (5) Pulmonary HTN Onset Date: 11/23/17 Current Visit: No Status: Chronic Plan: SEVERE, WORSE GRADUALLY. HAS BEEN ON MEDS FOR LONG TIME. DISCUSSED POOR PROGNOSIS WITH AND HE UNDERSTANDS THIS IS RAPID DECLINE IN HER CONDITION. STABLE AND WILL START PT. NO CHANGES. (6) Pickwickian syndrome Current Visit: Yes Status: Chronic Plan: OBESITY INDUCED HYPOVENTILATION SYNDROME. SEVERE HYPERCAPNEA. IN THE PAST I HAVE ASKED HER TO WATCH DIET AND LOSE WEIGHT. SHE TOLD ME A FEW WEEKS AGO THAT SHE WILL BE OBESE AND SHE DOES NOT LIKE ME TO REMIND HER TO WATCH DIET. SHE NOW IS TO A STAGE THAT SHE OVERALL WILL NOT DO WELL. SEVERE ISSUES. POOR PROGNOSIS. MULTIFACTORIAL ILLNESS. CKD FROM LITHIUM FOR BIPOLAR, SEVERE PULMONARY HTN, HYPERCAPNEA FROM SEVERE OBESITY. REPEAT ABG FAILED. THEY COULD NOT TO DIT.
[2018-09-19 20:38] VITALS: O2SAT 98
[2018-09-19] MEDS: LORATADINE 10 MG TAB PO SCH (22:07)
[2018-09-19] MEDS: MULTIVITAMIN TAB PO SCH (22:07)
[2018-09-19] MEDS: TOLTERODINE LA 4 MG CAP PO SCH (22:07)
[2018-09-19] MEDS: ALLOPURINOL 100 MG TAB PO SCH (22:07)
[2018-09-20] MEDS: LEVOTHYROXINE SOD 0.1 MG TAB PO SCH (06:11)
[2018-09-20] MEDS: ICOSAPENT ETHYL 1 GM CAP PO SCH ×2 (09:10→16:50)
[2018-09-20] MEDS: DIVALPROEX DR 500MG TAB PO SCH (09:11)
[2018-09-20] MEDS: SPIRONOLACTONE 25 MG TABLET PO SCH (09:11)
[2018-09-20] MEDS: CALCIUM CARBONATE 500 MG TAB PO SCH (09:11)
[2018-09-20] MEDS: VITAMIN D 1000 UNIT TAB PO SCH (09:11)
[2018-09-20] MEDS: ASPIRIN EC 81 MG TAB PO SCH (09:11)
[2018-09-20] MEDS: PANTOPRAZOLE 40MG TABLET PO SCH (09:11)
[2018-09-20] MEDS: ACETAMINOPHEN 500 MG TAB PO PRN (09:14)
--- NOTE | 2018-09-20 13:35 | P.DS ---
Admission Date: 09/09/18 Discharge Date: 09/20/18 Disposition: ROUTINE DISCHARGE Discharge Condition: SERIOUS Reason for Admission: Dyspnea. - Problems (1) Dyspnea Current Visit: Yes Status: Suspected (2) Acute on chronic renal failure Onset Date: 09/18/17 Current Visit: No Status: Chronic (3) Anemia in chronic kidney disease Onset Date: 09/04/18 Current Visit: No Status: Acute Qualifiers: Chronic kidney disease stage: stage 5, not on chronic dialysis Qualified Code(s): N18.5 - Chronic kidney disease, stage 5; D63.1 - Anemia in chronic kidney disease (4) Thrombocytopenia Onset Date: 09/04/18 Current Visit: No Status: Chronic (5) Pulmonary HTN Onset Date: 11/23/17 Current Visit: No Status: Chronic (6) Pickwickian syndrome Current Visit: Yes Status: Chronic Brief History of Present Illness: SHE HAS FELT WEAKER AND HAS MORE DYSPNEA LATELY. SHE IS MORBIDLY OBESE LADY WITH PULMONARY ARTERIAL HYPERTENSION BY HISTORY MANAGED WITH ADCIRCA, GRADUALLY GETTING WORSE. SHE COMES BACK TO HOSPITAL WITH NOT FEELING WELL. SHE HAS NO CHEST PAIN BUT HAS MILD TACHYPNEA. MS. DELACRUZ IS MORBIDLY OBESE LADY WHO HAS HYPERCAPNEA FROM HYPOVENTILATION SYNDROME, SEVERE PULMONARY HTN, RENAL FAILURE FROM LITHIUM THERAPY FOR BIPOLAR DISEASE, COMES WITH LETHARGY, RENAL FAILURE, CHF FROM IT, IT TAKES DAYS AND FLUCTUATING COURSE TO CLEAR HER LUNGS. NEPHROLOGISTS ARE TRYING TO DELAY HEMODIALYSIS UNTIL THE SHUNT IS READY. HER BUN AND CREATININE ARE HIGH FROM SLOW DIURESIS. SHE NEEDS BIPAP FOR SEVERE CO2 RETENTION. SHE IS STABLE FOR LTAC THEY WANT TO CONTINUE LOW GRADE DIURESIS FOR HER WITH IV DRIP OF LASIX. DW AND PATIENT A FEW TIMES. SHE HAS ASYMPTOMATIC BACTERIURIA NOT NEEDING THERAPY PER GUIDELINES. MS DELACRUZ HAS DONE WELL BUT SHE HAS WORSENED RENAL FAILURE. SHE NEEDS TO BE ON HD BUT HER SHUNT IS NOT MATURE YET. RENAL DOCTORS TRIED TO DELAY HD BY LOW DOSE DIURESIS. SHE IS DOING BETTER BUT WITH RENAL FAILURE GETTING WORSE. SHE MORBIDLY OBESE AND DR. WHIPPLE IS NOT ABLE TO PLACE IN HD CATHETER. HER INSURANCE REFUSED TO TAKE HER TO LTAC, REFUSED INPATIENT HD AND SHE WILL GO HOME TODAY FOR OP HD PLANS. SHE HAS BACTERIA IN URINE BUT NO SYMPTOMS . THIS IS COLONIZATION AND NEEDS NO THERAPY PER GUIDELINES. WE WILL WATCH SS OP. Vital Signs/Physical Exam: Temp Pulse Resp BP Pulse Ox 97.8 F 92 H 18 129/59 L 96 09/20/18 08:00 09/20/18 09:11 09/20/18 08:00 09/20/18 09:11 09/20/18 08:00 Laboratory Data at Discharge: WBC 8.1 K/uL (4.3-10.9) 09/16/18 03:15 Hgb 9.5 g/dL (12.0-15.0) L 09/16/18 03:15 Hct 28.7 % (36.0-45.0) L 09/16/18 03:15 Plt Count 167 K/uL (152-406) 09/16/18 03:15 PT 14.0 SECONDS (9.5-12.5) H 09/08/18 17:15 INR 1.19 09/08/18 17:15 Sodium 147 mmol/L (136-145) H 09/19/18 05:26 Potassium 4.3 mmol/L (3.5-5.1) 09/19/18 05:26 BUN 100 mg/dL (7-18) H 09/19/18 05:26 Creatinine 3.43 mg/dL (0.55-1.3) H 09/19/18 05:26 Glucose 132 mg/dL (74-106) H 09/19/18 05:26 Phosphorus 2.7 mg/dL (2.5-4.9) 09/19/18 05:26 Magnesium 2.0 mg/dL (1.8-2.4) 09/17/18 04:50 Total Bilirubin 0.2 mg/dL (0.2-1.0) 09/08/18 17:15 AST 9 U/L (15-37) L 09/08/18 17:15 ALT 9 U/L (12-78) L 09/08/18 17:15 Alkaline Phosphatase 70 U/L (45-117) 09/08/18 17:15 Home Medications: Adcirca 20mg 2 tab PO BEDTIME 09/03/18 Allopurinol [Zyloprim*] 100 mg PO BEDTIME 09/03/18 Ascorbic Acid [Vitamin C] 500 mg PO DAILY 09/03/18 Aspirin [Aspir-Low] 81 mg PO DAILY 09/03/18 Calcium Carbonate [Calcium] 2 tab PO DAILY 09/03/18 Cholecalciferol (Vitamin D3) [Vitamin D3] 2,000 unit PO DAILY 09/03/18 Cyclosporine [Restasis] 1 drop EACH EYE BID 09/03/18 Divalproex Sodium [Depakote] 1,000 mg PO BEDTIME 09/03/18 Divalproex Sodium [Depakote] 500 mg PO DAILY 09/03/18 Esomeprazole Mag Trihydrate [Nexium] 40 mg PO DAILY 09/03/18 Icosapent Ethyl [Vascepa] 2 cap PO BID 09/03/18 Ipratropium [Atrovent 0.03% (21MCG)/Boyce Nasal*] 2 sprays NS TID 09/03/18 L.acidoph,Paracasei, B.lactis [Probiotic] 1 each PO DAILY 09/03/18 Levothyroxine Sodium 100 mcg PO DAILY 09/03/18 Loratadine [Claritin*] 10 mg PO BEDTIME 09/03/18 Multivitamin [Multivitamins] 1 each PO BEDTIME 09/03/18 Nebivolol HCl [Bystolic*] 20 mg PO DAILY 09/03/18 Olopatadine HCl [Patanase] 2 spray NS BID 09/03/18 Rosuvastatin Calcium [Crestor] 40 mg PO BEDTIME 09/03/18 Tolterodine Tartrate [Detrol LA*] 4 mg PO BEDTIME 09/03/18 Tramadol HCl [Ultram] 50 mg PO Q8H PRN 09/03/18 clonazePAM [Klonopin] 0.5 mg PO BEDTIME 09/03/18 Diet: Renal Followup: Krishna Rand MD [ACTIVE - CAN ADMIT] - Michael Villegas MD [Primary Care Provider] -
[2018-09-20 18:44] VITALS: BP 132/62; TEMP 98.1
--- NOTE | 2018-09-20 19:04 | P.PN ---
Subjective Date of Service: 09/20/18 Chief Complaint: Dyspnea. Subjective: Improving pt with CKD IV, with fluid overload on admission had rt AVF , unmature Bun and Cr stable now no uremic symptoms can be discharged from nephrology point of view will arrange for IR/vascular dialysis catheter placement as an OP to resume lasix 40mg po daily Physical Examination - Vital Signs Temperature: 98.1 F Blood Pressure: 132/62 Pulse: 81 Respirations: 18 Pulse Ox (%): 100 - Physical Exam General: Alert, In no apparent distress HEENT: Atraumatic Neck: Supple, Without JVD or thyroid abnormality Respiratory: Clear to auscultation bilaterally, Normal air movement Cardiovascular: Regular rate/rhythm, Normal S1 S2, Other (trace edema ), Edema Gastrointestinal: Normal bowel sounds, Soft and benign - Studies Medications List Reviewed: Yes Assessment And Plan - Current Problems (Diagnosis) (1) Altered mental status Onset Date: 09/04/18 Current Visit: No Status: Acute (2) Anemia in chronic kidney disease Onset Date: 09/04/18 Current Visit: No Status: Acute Qualifiers: Chronic kidney disease stage: stage 5, not on chronic dialysis Qualified Code(s): N18.5 - Chronic kidney disease, stage 5; D63.1 - Anemia in chronic kidney disease (3) Chronic kidney disease Onset Date: 09/04/18 Current Visit: No Status: Acute - Plan CKD V initially cardiorenal Bun/Cr stable for now will need IR/vascular tunneled cath placement will F/U pt as an OP and arrange for cath placement hypokalemia resolved Mg wnl replaced likely due to diuresis anemia Completed Iv iron NOVA Co2 retention bicarb stable now pulmonary fu
[2018-09-20 20:55] LABS: Beta Globulin 24 HR Urine 20 %; Creatinine 24 Hour Urine 0.86 g/24 h (0.50-2.15); Gamma Globulin, 24hr Urine 18 %; Interpretation: REPORT; Urine Alpha-2-Globulins, 24 Hr 19 %; Urine PEP Abn Protein Band1 REPORT; Urine Protein/Creat Ratio 24Hr 890 mg/g creat (<115); Urine Total Volume 24 Hours 2250 mL
[2018-09-21] MEDS ORDERED: FUROSEMIDE 40 MG TABLET PO SCH (09:00)
== END 2018-09-20 18:00 | disposition home or self-care (01) | DRG 189 ==
LOC: ER 16:30 → ERHOLD 22:28 → 4TH 22:57 → OBSVTOIN 09-09 14:12 → 3RD-ICU 09-09 14:39 → 2ND 09-11 16:30
PROVIDERS: ADMIT Internal Medicine; ATTEND Internal Medicine
PROC: 5A09557 Assistance with Respiratory Ventilation, Greater than 96 Consecutive Hours, Continuous Positive Airway Pressure (ICD-10-PCS; 2018-09-09)
PROC: B543ZZA Ultrasonography of Right Jugular Veins, Guidance (ICD-10-PCS; 2018-09-10)
PROC: B513YZA Fluoroscopy of Right Jugular Veins using Other Contrast, Guidance (ICD-10-PCS; 2018-09-10)
PROC: 05HM33Z Insertion of Infusion Device into Right Internal Jugular Vein, Percutaneous Approach (ICD-10-PCS; principal; 2018-09-10 11:15)
PROC: 30233N1 Transfusion of Nonautologous Red Blood Cells into Peripheral Vein, Percutaneous Approach (ICD-10-PCS; 2018-09-11)
DX: J96.22 Acute and chronic respiratory failure with hypercapnia (principal); I50.33 Acute on chronic diastolic (congestive) heart failure; N18.6 End stage renal disease; E66.2 Morbid (severe) obesity with alveolar hypoventilation; E87.0 Hyperosmolality and hypernatremia; N17.9 Acute kidney failure, unspecified; I13.0 Hypertensive heart and chronic kidney disease with heart failure and stage 1 through stage 4 chronic kidney disease, or unspecified chronic kidney disease; J44.1 Chronic obstructive pulmonary disease with (acute) exacerbation; E87.3 Alkalosis; J96.21 Acute and chronic respiratory failure with hypoxia; I95.9 Hypotension, unspecified; Z88.5 Allergy status to narcotic agent; E03.9 Hypothyroidism, unspecified; Z68.38 Body mass index [BMI] 38.0-38.9, adult; E86.0 Dehydration; I27.21 Secondary pulmonary arterial hypertension; D63.1 Anemia in chronic kidney disease; K76.0 Fatty (change of) liver, not elsewhere classified; E78.5 Hyperlipidemia, unspecified; G25.3 Myoclonus; K21.9 Gastro-esophageal reflux disease without esophagitis; Z86.718 Personal history of other venous thrombosis and embolism; Z79.01 Long term (current) use of anticoagulants; D50.9 Iron deficiency anemia, unspecified; E11.22 Type 2 diabetes mellitus with diabetic chronic kidney disease; Z79.4 Long term (current) use of insulin; E87.6 Hypokalemia; E87.70 Fluid overload, unspecified; R60.1 Generalized edema; E83.42 Hypomagnesemia; R82.71 Bacteriuria
CPT/HCPCS: 36415; 71045; 76000; 76770; 80048; 80069; 80076; 81001; 82140; 82570; 82805; 82962; 83010; 83615; 83735; 83880; 84100; 84132; 84156; 84166; 84439; 84443; 84484; 85014; 85018; 85025; 85610; 86850; 86900; 86901; 86922; 87077; 87086; 87088; 87186; 93005; 93306; 93970; 94660; 94760; 96360; 96361; 96372; 97116; 97162; 97165; 97530; 99285; G0378; J0885; J1120; J1644; J1940; J2250; J2370; J2405; J2704; J2916; J3010; J3475; J7030; P9016; Q4081

== ENCOUNTER 2018-11-08 21:22 | Inpatient (IN) | payer OTHER ==
--- OUTSIDE RECORDS SUMMARY | 2018-11-08 21:28 | XMS REPORT | Clinical Summary ---
:1960 Author Organization [facility] Address [address] [place] [address] Care Team Providers Name Role Phone Asked, No Pcp Primary Care Provider Unavailable Allergies Active Allergy Reactions Severity Noted Date Comments Codeine Itching Low 09/20/2017 Morphine Other (See Comments) High 09/20/2017 Nsaids (Non-Steroidal Medium 09/20/2017 Anti-Inflammatory Drug) Medications Medication Sig Dispensed Refills Start Date End Date Status olopatadine 1 drop 2 (two) 0 Active (PATANOL) 0.1 % times a day. ophthalmic solution allopurinol Take 100 mg by 0 Active (ZYLOPRIM) 100 MG mouth daily. tablet aspirin (ECOTRIN) Take 81 mg by 0 Active 81 MG enteric mouth daily. coated tablet cetirizine (ZyrTEC) Take 10 mg by 0 Active 10 MG tablet mouth nightly. esomeprazole Take 40 mg by 0 Active (NexIUM) 40 MG mouth daily capsule before breakfast. levothyroxine Take 100 mcg by 0 Active (SYNTHROID, mouth daily. LEVOXYL) 100 mcg tablet rosuvastatin Take 40 mg by 0 Active (CRESTOR) 40 MG mouth daily. tablet cholecalciferol, Take 2,000 Units 0 Active vitamin D3, by mouth daily. (VITAMIN D3) 1,000 unit tablet ascorbic acid, Take 500 mg by 0 Active vitamin C, (VITAMIN mouth daily. C) 500 MG tablet eszopiclone Take 3 mg by 0 Active (LUNESTA) 3 mg mouth nightly. tablet Take immediately before bedtime ipratropium 2 sprays into 0 Active (ATROVENT) 42 mcg each nostril 3 (0.06 %) nasal (three) times a spray day before meals. iron, carbonyl, 45 Take 65 mg by 0 Active mg tablet mouth daily. multivitamin Take 1 tablet by 0 Active (THERAGRAN) tablet mouth nightly. cycloSPORINE Administer 1 drop 0 Active (RESTASIS) 0.05 % to both eyes ophthalmic emulsion daily. divalproex Take 500 mg by 0 Active (DEPAKOTE) 250 MG mouth daily. EC tablet icosapent ethyl Take 2 g by mouth 0 Active (VASCEPA) 1 gram 2 (two) times a capsule day. tadalafil (ADCIRCA) Take 40 mg by 0 Active 20 mg tablet mouth daily. eluxadoline Take 100 mg by 0 Active (VIBERZI) 100 mg mouth daily. tablet tablet calcium carbonate Take 600 mg by 0 Active (CALCIUM 600) 600 mouth daily. mg calcium (1,500 mg) tablet tolterodine LA Take 4 mg by 0 Active (DETROL LA) 4 MG 24 mouth nightly. hr capsule divalproex Take 1,000 mg by 0 Active (DEPAKOTE) 500 MG mouth nightly. EC tablet midodrine Take 1 tablet (10 90 tablet 0 10/29/2018 11/29/19 Active (PROAMATINE) 10 MG mg total) by 19 tablet mouth 3 (three) times a day for 30 days. acetaminophen Take 2 tablets 0 10/29/2018 11/29/19 Active (TYLENOL) 325 MG (650 mg total) by 19 tablet mouth every 4 (four) hours as needed for mild pain or fever for up to 30 days. clonAZEPAM Take 1 tablet 0 10/29/2018 11/29/19 Active (KlonoPIN) 0.5 MG (0.5 mg total) by 19 tablet mouth nightly as needed for anxiety for up to 30 days. ondansetron ODT Take 1 tablet (4 0 10/29/2018 11/29/19 Active (ZOFRAN-ODT) 4 MG mg total) by 19 disintegrating mouth every 8 tablet (eight) hours as needed for nausea or vomiting for up to 30 days. ipratropium-albuter Take 3 mL by 360 mL 0 10/29/2018 11/29/19 Active ol (DUO-NEB) nebulization 19 0.5-2.5 mg/3 mL every 6 (six) nebulizer hours for 30 days. polyethylene glycol Take 17 g by 30 packet 0 10/30/2018 11/30/19 Active (MIRALAX) 17 gram mouth daily for 19 packet 30 days. fluticasone 1 spray (50 mcg 15.8 mL 0 10/29/2018 11/29/19 Active propionate total) by Each 19 (FLONASE) 50 Nare route 2 mcg/actuation nasal (two) times a day spray for 30 days. epoetin elvira-epbx Infuse 13,000 0 10/29/2018 11/29/19 Active 10,000 unit/mL Units into a 19 solution 10,000 venous catheter 3 Units, epoetin (three) times a elvira-epbx 3,000 week for 30 days. unit/mL solution 3,000 Units injection divalproex Take 500 mg by 0 11/24/19 Discontinued (DEPAKOTE) 500 MG mouth 2 (two) 18 EC tablet times a day. fenofibrate Take 150 mg by 0 10/06/19 Discontinued (LOFIBRA) 160 MG mouth daily. 19 tablet acetaminophen Take 2 tablets 0 10/10/2017 11/10/19 (TYLENOL) 325 MG (650 mg total) by 18 tablet mouth every 6 (six) hours as needed for mild pain or fever for up to 30 days. ipratropium Take 2.5 mL (0.5 75 mL 0 10/10/2017 11/10/19 (ATROVENT) 0.02 % mg total) by 18 nebulizer solution nebulization every 8 (eight) hours for 30 days. ondansetron ODT Take 1 tablet (4 0 10/10/2017 11/10/19 (ZOFRAN-ODT) 4 MG mg total) by 18 disintegrating mouth every 8 tablet (eight) hours as needed for nausea or vomiting for up to 30 days. promethazine Take 1 tablet 0 10/10/2017 11/10/19 (PHENERGAN) 12.5 MG (12.5 mg [...] 30 days. guaiFENesin Take 10 mL (200 0 10/10/2017 11/10/19 (ROBITUSSIN) 100 mg total) by 18 mg/5 mL syrup mouth every 4 (four) hours for 30 days. insulin lispro Inject 0-5 Units 10 mL 12 10/10/2017 11/10/19 (HumaLOG) 100 under the skin 18 unit/mL injection every 4 (four) hours for 30 days. albuterol (ACCUNEB) Take 3 mL (2.5 mg 75 mL 12 11/02/2017 11/24/19 Discontinued 2.5 mg /3 mL (0.083 total) by 18 %) nebulizer nebulization solution every 4 (four) hours as needed for shortness of breath for up to 30 days. albuterol (ACCUNEB) Take 3 mL (2.5 mg 360 mL 0 11/02/2017 11/24/19 Discontinued 2.5 mg /3 mL (0.083 total) by 18 %) nebulizer nebulization solution every 4 (four) hours while awake for 30 days. apixaban (ELIQUIS) Take 1 tablet 60 tablet 0 11/02/2017 12/07/19 Discontinued 2.5 mg tablet (2.5 mg total) by 18 mouth 2 (two) times a day for 30 days. ramelteon (ROZEREM) Take 1 tablet (8 0 11/02/2017 11/24/19 Discontinued 8 mg tablet mg total) by 18 mouth nightly as needed for sleep for up to 30 days. dextrose 10 % Infuse 40 mL/hr 500 mL 0 11/02/2017 12/07/19 Discontinued infusion into a venous 18 catheter continuously as needed (bedside glucose LESS than 70 mg/dL) for up to 30 days. polyethylene glycol Take 17 g by 0 11/02/2017 12/07/19 Discontinued (MIRALAX) 17 gram mouth daily as 18 packet needed for constipation for up to 30 days. dextromethorphan-gu Take 5 mL by 0 11/02/2017 11/24/19 Discontinued aifenesin mouth every 4 18 (ROBITUSSIN-DM) (four) hours as 10-100 mg/5 mL needed for cough liquid for up to 30 days. vancomycin 1,000 mg Infuse 1,000 mg 1 each 0 11/02/2017 11/10/19 in sodium chloride into a venous 18 0.9% 250 mL IVPB catheter daily for 7 days. meropenem 500 mg in Infuse 500 mg 0 11/02/2017 11/10/19 sodium chloride 0.9 into a venous 18 % MBP 50 mL IVPB catheter every 8 (eight) hours for 7 days. nebivolol Take 5 mg by 0 10/31/19 Discontinued (BYSTOLIC) 5 MG mouth nightly. 19 tablet methocarbamol Take 750 mg by 0 12/07/19 Discontinued (ROBAXIN) 750 MG mouth 3 (three) 18 tablet times a day. clonAZEPAM Take 0.5 mg by 0 10/31/19 Discontinued (KlonoPIN) 0.5 MG mouth nightly. 19 tablet verapamil sustained Take 240 mg by 0 12/07/19 Discontinued release (CALAN-SR) mouth nightly. 18 240 MG SR tablet calcium acetate Take 600 mg by 0 11/24/19 Discontinued (PHOSLO) 667 mg mouth daily. 18 capsule traMADol (ULTRAM) Take 50 mg by 0 10/31/19 Discontinued 50 mg tablet mouth every 6 19 (six) hours as needed for moderate pain. furosemide (LASIX) Take 20 mg by 0 12/07/19 Discontinued 20 mg tablet mouth daily. 18 apixaban (ELIQUIS) Take 1 tablet 60 tablet 0 12/06/2017 01/06/20 2.5 mg tablet (2.5 mg total) by 18 mouth 2 (two) times a day for 30 days. traMADol (ULTRAM) Take 0.5 tablets 40 tablet 0 12/06/2017 12/21/19 50 mg tablet (25 mg total) by 18 mouth 3 (three) times a day as needed for severe pain for up to 14 days. allopurinol Take 100 mg by 0 10/31/19 Discontinued (ZYLOPRIM) 100 MG mouth daily. 19 tablet methocarbamol Take 750 mg by 0 10/31/19 Discontinued (ROBAXIN) 750 MG mouth 4 (four) 19 tablet times a day. Active Problems Problem Noted Date Shortness of breath 10/05/2018 Small bowel obstruction 11/23/2017 Encephalopathy acute 10/28/2017 Ramona UTI 10/03/2017 Anemia [...] Encounters Date Type Specialty Care Team Description 10/25/2018 Orders Only Radiology Temo Gaffney 10/05/2018 - Hospital Encounter Neurosurgery Preeti Will Stage 5 chronic 10/30/2018 MD Harley kidney disease on chronic dialysis (HCC) (Primary Dx) 10/05/2018 Orders Only General Internal Preeti Will MD 12/21/2017 Telephone General Surgery Elaine Tavares PA 12/12/2017 Office Visit General Surgery Crispin, S/P repair of Berhane Starr MD ventral hernia (Primary Dx) 11/28/2017 Anesthesia Event General Surgery Andrea Rico MD 11/28/2017 Surgery General Surgery Crispin, VENTRAL HERNIA Berhane Starr MD REPAIR WITH MESH 11/23/2017 - Hospital Encounter General Surgery Crispin, Small bowel 12/06/2017 Berhane Starr MD obstruction Sergo [place] (Primary Dx) MD Adán Daniel Varun, MD after 11/07/2017 Social History Tobacco Use Types Packs/Day Years Used Date Unknown If Ever Smoked Smokeless Tobacco: Never Used Sex Assigned at Date Recorded Not on file Job Start Date Occupation Industry Not on file Not on file Not on file Travel History Travel Start Travel End No recent travel history available. Last Filed Vital Signs Vital Sign Reading Time Taken Blood Pressure 104/55 10/30/2018 11:32 AM CDT Pulse 98 10/30/2018 11:32 AM CDT Temperature 37.3 C (99.1 F) 10/30/2018 7:30 AM CDT Respiratory Rate 18 10/30/2018 11:32 AM CDT Oxygen Saturation 98% 10/30/2018 11:32 AM CDT Inhaled Oxygen Concentration - - Weight 98.3 kg (216 lb 11.2 oz) 10/17/2018 6:09 PM CDT Height 162.6 cm (5' 4") 10/17/2018 6:09 PM CDT Body Mass Index 37.2 10/17/2018 6:09 PM CDT Plan of Treatment Health Maintenance Due Date Last Done Comments CERVICAL CANCER SCREENING 1979 BREAST CANCER SCREENING 2008 COLON CANCER SCREENING 2008 SHINGLES VACCINES (#1) 2008 INFLUENZA VACCINE 01/31/2019 Implants Implanted Type Area Accounts Receivable Assistant Device Shelf Model / Identifier Expiration Serial / Date Lot Set Cathztn Hmodial Lngtrm Accs 15fr 28cm Edge Simplicity - [id number] Central N/A: N/A ARROW 04/01/2021 CS 24032 IM / Implanted: 10/25/2018 (Quantity not on file) Venous INTERNATIONAL / Catheters INC [id number] Clip Ligtng Weck Hemoclip Plus W/ Tape Ti Med Lg - [id number] Medical N/A: N/ A WECK CLOSURE 04/18/2022 [id number] / Implanted: Qty: 1 on 11/28/2017 by Berhane Roa MD Clips for SYSTEMS / Internal Use Clip Ligtng Weck Hemoclip Plus W/ Tape Ti Med - [id number] Medical N/A: N/A TELEFLEX MEDICAL 04/18/2022 [id number] / Implanted: Qty: 1 on 11/28/2017 by Berhane Roa MD Clips for / Internal Use Clip Ligtng Weck Hemoclip Plus W/ Tape Ti Lg - [id number] Medical N/A: N/A TELEFLEX MEDICAL 04/18/2022 [id number] / Implanted: Qty: 1 on 11/28/2017 by Berhane Roa MD Clips for / Internal Use Mesh Hrnia Rpr Sepramesh 8x12in Rectngl Cmpst Ppe Ventrl - [id number] Surgical N/A: DAVOL INC 07/30/2018 [id number] / Implanted: 11/28/2017 (Quantity not on file) Mesh or Abdomen, / Tissue Middle [id number] Barrier Quadrant/No Products n Specific Procedures Procedure Name Priority Date/Time Associated Comments Diagnosis HEMODIALYSIS Routine 10/29/2018 6:29 PM CDT ESTIMATED GFR Routine 10/27/2018 8:25 Results for this AM CDT procedure are in the results section. BASIC METABOLIC PANEL Routine 10/27/2018 8:25 Results for this AM CDT procedure are in the results section. HC COMPLETE BLD COUNT Routine 10/27/2018 8:25 Results for this W/AUTO DIFF AM CDT procedure are in the results section. HEMODIALYSIS Routine 10/27/2018 8:02 AM CDT IR NON-TUNNELED CENTRAL Routine 10/25/2018 3:34 Results for this LINE REMOVAL PM CDT procedure are in the results section. IR TUNNELED DIALYSIS Routine 10/25/2018 3:34 Results for this CATHETER PLACEMENT PM CDT procedure are in the results section. HEMODIALYSIS Routine 10/25/2018 9:39 AM CDT HC COMPLETE BLD COUNT Routine 10/25/2018 4:10 Results for this W/AUTO DIFF AM CDT procedure are in the results section. ESTIMATED GFR Routine 10/25/2018 4:00 Results for this AM CDT procedure are in the results section. BASIC METABOLIC PANEL Routine 10/25/2018 4:00 Results for this AM CDT procedure are in the results section. HEMODIALYSIS Routine 10/23/2018 8:50 AM CDT HC COMPLETE BLD COUNT Routine 10/23/2018 4:00 Results for this W/AUTO DIFF AM CDT procedure are in the results section. ESTIMATED GFR Routine 10/23/2018 4:00 Results for this AM CDT procedure are in the results section. BASIC METABOLIC PANEL Routine 10/23/2018 4:00 Results for this AM CDT procedure are in the results section. TRANSFUSE RED BLOOD Routine 10/22/2018 10:33 CELLS PM CDT TRANSFUSE RED BLOOD Routine 10/22/2018 10:06 CELLS PM CDT IR TUNNELED DIALYSIS Routine 10/22/2018 1:15 Results for this CATHETER PLACEMENT PM CDT procedure are in the results section. HEMODIALYSIS Routine 10/22/2018 7:42 AM CDT PREPARE RBC STAT 10/22/2018 5:00 Results for this AM CDT procedure are in the results section. SMEAR REVIEW Routine 10/22/2018 5:00 Results for this AM CDT procedure are in the results section. TYPE AND SCREEN Routine 10/22/2018 5:00 Results for this AM CDT procedure are in the results section. HC COMPLETE BLD COUNT Routine 10/22/2018 5:00 Results for this W/AUTO DIFF AM CDT procedure are in the results section. ESTIMATED GFR Routine 10/22/2018 4:00 Results for this AM CDT procedure are in the results section. BASIC METABOLIC PANEL Routine 10/22/2018 4:00 Results for this AM CDT procedure are in the results section. ESTIMATED GFR Routine 10/21/2018 4:27 Results for this AM CDT procedure are in the results section. BASIC METABOLIC PANEL Routine 10/21/2018 4:27 Results for this AM CDT procedure are in the results section. ESTIMATED GFR STAT 10/20/2018 10:25 Results for this AM CDT procedure are in the results section. BASIC METABOLIC PANEL STAT 10/20/2018 10:25 Results for this AM CDT procedure are in the results section. ESTIMATED GFR Routine 10/19/2018 4:00 Results for this AM CDT procedure are in the results section. BASIC METABOLIC PANEL Routine 10/19/2018 4:00 Results for this AM CDT procedure are in the results section. ESTIMATED GFR Routine 10/18/2018 8:35 Results for this AM CDT procedure are in the results section. BASIC METABOLIC PANEL Routine 10/18/2018 8:35 Results for this AM CDT procedure are in the results section. BLOOD CULTURE, AEROBIC & Routine 10/17/2018 7:40 Results for this ANAEROBIC AM CDT procedure are in the results section. ESTIMATED GFR Routine 10/17/2018 3:30 Results for this AM CDT procedure are in the results section. MAGNESIUM LEVEL Routine 10/17/2018 3:30 Results for this AM CDT procedure are in the results section. BASIC METABOLIC PANEL Routine 10/17/2018 3:30 Results for this AM CDT procedure are in the results section. HC COMPLETE BLD COUNT Routine 10/17/2018 2:35 Results for this W/AUTO DIFF AM CDT procedure are in the results section. POC GLUCOSE Routine 10/16/2018 8:37 Results for this PM CDT procedure are in the results section. IR TUNNELED DIALYSIS Routine 10/16/2018 5:43 Results for this CATHETER REMOVAL PM CDT procedure are in the results section. CBC HEMOGRAM Routine 10/16/2018 10:00 Results for this AM CDT procedure are in the results section. HEMODIALYSIS Routine 10/16/2018 6:30 AM CDT ESTIMATED GFR Routine 10/16/2018 5:10 Results for this AM CDT procedure are in the results section. PHOSPHORUS LEVEL Routine 10/16/2018 5:10 Results for this AM CDT procedure are in the results section. MAGNESIUM LEVEL Routine 10/16/2018 5:10 Results for this AM CDT procedure are in the results section. BASIC METABOLIC PANEL Routine 10/16/2018 5:10 Results for this AM CDT procedure are in the results section. CBC WITH PLATELET AND Routine 10/16/2018 5:10 Results for this DIFFERENTIAL AM CDT procedure are in the results section. ARTERIAL BLOOD GAS Routine 10/15/2018 10:38 Results for this PM CDT procedure are in the results section. POC GLUCOSE Routine 10/15/2018 8:09 Results for this PM CDT procedure are in the results section. HEMODIALYSIS Routine 10/15/2018 1:33 PM CDT ESTIMATED GFR Routine 10/15/2018 4:41 Results for this AM CDT procedure are in the results section. VANCOMYCIN LEVEL, RANDOM Routine 10/15/2018 4:41 Results for this AM CDT procedure are in the results section. HC COMPLETE BLD COUNT Routine 10/15/2018 4:41 Results for this W/AUTO DIFF AM CDT procedure are in the results section. BASIC METABOLIC PANEL Routine 10/15/2018 4:41 Results for this AM CDT procedure are in the results section. ARTERIAL BLOOD GAS Routine 10/15/2018 4:04 Results for this AM CDT procedure are in the results section. ARTERIAL BLOOD GAS Routine 10/14/2018 1:38 Results for this PM CDT procedure are in the results section. ARTERIAL BLOOD GAS Timed 10/14/2018 9:27 Results for this AM CDT procedure are in the results section. XR CHEST 1 VW PORTABLE Routine 10/14/2018 8:28 Results for this AM CDT procedure are in the results section. SMEAR REVIEW Routine 10/14/2018 5:10 Results for this AM CDT procedure are in the results section. LACTIC ACID LEVEL, Routine 10/14/2018 5:10 Results for this SEPSIS - NOW AND REPEAT AM CDT procedure are in 2X EVERY 3 HOURS the results section. ARTERIAL BLOOD GAS Routine 10/14/2018 5:10 Results for this AM CDT procedure are in the results section. ESTIMATED GFR Routine 10/14/2018 5:10 Results for this AM CDT procedure are in the results section. HC COMPLETE BLD COUNT Routine 10/14/2018 5:10 Results for this W/AUTO DIFF AM CDT procedure are in the results section. BASIC METABOLIC PANEL Routine 10/14/2018 5:10 Results for this AM CDT procedure are in the results section. LACTIC ACID LEVEL, Timed 10/13/2018 5:20 Results for this SEPSIS - NOW AND REPEAT PM CDT procedure are in 2X EVERY 3 HOURS the results section. BLOOD CULTURE, AEROBIC & Routine 10/13/2018 5:15 Results for this ANAEROBIC PM CDT procedure are in the results section. BLOOD CULTURE, AEROBIC & Routine 10/13/2018 4:55 Results for this ANAEROBIC PM CDT procedure are in the results section. HEMODIALYSIS Routine 10/13/2018 9:15 AM CDT HC COMPLETE BLD COUNT Routine 10/13/2018 7:15 Results for this W/AUTO DIFF AM CDT procedure are in the results section. ESTIMATED GFR Routine 10/13/2018 4:00 Results for this AM CDT procedure are in the results section. BASIC METABOLIC PANEL Routine 10/13/2018 4:00 Results for this AM CDT procedure are in the results section. VANCOMYCIN LEVEL, RANDOM Routine 10/12/2018 4:00 Results for this AM CDT procedure are in the results section. POC GLUCOSE Routine 10/11/2018 3:24 Results for this PM CDT procedure are in the results section. XR FOREARM 2 VW RIGHT Routine 10/11/2018 2:01 Results for this PM CDT procedure are in the results section. GRAM STAIN Routine 10/10/2018 6:48 Results for this PM CDT procedure are in the results section. URINE CULTURE Routine 10/10/2018 6:48 Results for this PM CDT procedure are in the results section. URINALYSIS SCREEN AND Routine 10/10/2018 5:28 Results for this MICROSCOPY, WITH REFLEX PM CDT procedure are in TO CULTURE the results section. HEMODIALYSIS Routine 10/10/2018 4:42 PM CDT XR CHEST 1 VW PORTABLE STAT 10/10/2018 12:30 Results for this PM CDT procedure are in the results section. BLOOD CULTURE, AEROBIC & Routine 10/10/2018 12:16 Results for this ANAEROBIC PM CDT procedure are in the results section. BLOOD CULTURE, AEROBIC & Routine 10/10/2018 12:00 Results for this ANAEROBIC PM CDT procedure are in the results section. RESPIRATORY PATHOGEN Routine 10/09/2018 4:25 Results for this PANEL PM CDT procedure are in the results section. INFLUENZA ANTIGEN TEST, Routine 10/09/2018 4:25 Results for this REFLEX NEGATIVE TO RPP PM CDT procedure are in the results section. XR CHEST 1 VW PORTABLE Today 10/09/2018 2:44 Results for this PM CDT procedure are in the results section. POC GLUCOSE Routine 10/09/2018 12:59 Results for this PM CDT procedure are in the results section. ESTIMATED GFR Routine 10/09/2018 8:35 Results for this AM CDT procedure are in the results section. BASIC METABOLIC PANEL Routine 10/09/2018 8:35 Results for this AM CDT procedure are in the results section. HC COMPLETE BLD COUNT Routine 10/09/2018 8:35 Results for this W/AUTO DIFF AM CDT procedure are in the results section. HEMODIALYSIS Routine 10/09/2018 8:34 AM CDT POC GLUCOSE Routine 10/08/2018 10:14 Results for this PM CDT procedure are in the results section. XR CHEST 1 VW STAT 10/08/2018 7:35 Results for this PM CDT procedure are in the results section. US THORACENTESIS WITH Today 10/08/2018 6:55 Results for this IMAGING PM CDT procedure are in the results section. PH, MISC FLUID Routine 10/08/2018 6:45 Results for this PM CDT procedure are in the results section. CELL COUNT AND Routine 10/08/2018 6:45 Results for this DIFFERENTIAL, BODY FLUID PM CDT procedure are in the results section. PROTEIN, MISC FLUID Routine 10/08/2018 6:45 Results for this PM CDT procedure are in the results section. LDH, MISC FLUID Routine 10/08/2018 6:45 Results for this PM CDT procedure are in the results section. GLUCOSE LEVEL, MISC Routine 10/08/2018 6:45 Results for this FLUID PM CDT procedure are in the results section. GRAM STAIN Routine 10/08/2018 6:45 Results for this PM CDT procedure are in the results section. ANAEROBIC CULTURE Routine 10/08/2018 6:45 Results for this PM CDT procedure are in the results section. AEROBIC CULTURE Routine 10/08/2018 6:45 Results for this PM CDT procedure are in the results section. AFB STAIN Routine 10/08/2018 6:45 Results for this PM CDT procedure are in the results section. LACTIC ACID LEVEL Routine 10/08/2018 12:30 Results for this PM CDT procedure are in the results section. BLOOD CULTURE, AEROBIC & Routine 10/08/2018 12:30 Results for this ANAEROBIC PM CDT procedure are in the results section. CT HEAD WO CONTRAST STAT 10/08/2018 11:25 Results for this AM CDT procedure are in the results section. CT CHEST WO CONTRAST Routine 10/08/2018 11:25 Results for this AM CDT procedure are in the results section. ARTERIAL BLOOD GAS STAT 10/08/2018 10:08 Results for this AM CDT procedure are in the results section. POC GLUCOSE Routine 10/08/2018 10:02 Results for this AM CDT procedure are in the results section. CYTOLOGY Routine 10/08/2018 7:49 Results for this (NON-GYNECOLOGICAL) AM CDT procedure are in REQUEST the results section. POC GLUCOSE Routine 10/07/2018 9:01 Results for this PM CDT procedure are in the results section. ECHOCARDIOGRAM 2D Routine 10/07/2018 10:04 Results for this COMPLETE W MMODE AM CDT procedure are in SPECTRAL COLOR DOPPLER the results (37589) section. HEPATITIS B SURFACE STAT 10/06/2018 2:30 Results for this ANTIGEN PM CDT procedure are in the results section. ESTIMATED GFR Routine 10/06/2018 2:30 Results for this PM CDT procedure are in the results section. PROTHROMBIN TIME WITH Routine 10/06/2018 2:30 Results for this INR PM CDT procedure are in the results section. COMPREHENSIVE METABOLIC Routine 10/06/2018 2:30 Results for this PANEL PM CDT procedure are in the results section. HC COMPLETE BLD COUNT Routine 10/06/2018 2:30 Results for this W/AUTO DIFF PM CDT procedure are in the results section. HEMODIALYSIS Routine 10/06/2018 2:13 PM CDT ECG 12-LEAD Routine 10/05/2018 9:44 Results for this PM CDT procedure are in the results section. XR CHEST 1 VW PORTABLE Routine 10/05/2018 9:10 Results for this PM CDT procedure are in the results section. TRANSFUSE RED BLOOD Routine 03/07/2018 5:53 CELLS PM CDT TRANSFUSE RED BLOOD Routine 03/07/2018 5:51 CELLS PM CDT TRANSFUSE RED BLOOD Routine 03/07/2018 5:51 CELLS PM CDT POC GLUCOSE Routine 12/06/2017 12:21 Results for this PM CDT procedure are in the results section. URINALYSIS SCREEN AND Routine 12/06/2017 12:11 Results for this MICROSCOPY, WITH REFLEX PM CDT procedure are in TO CULTURE the results section. URINE CULTURE Routine 12/06/2017 12:11 Results for this PM CDT procedure are in the results section. GRAM STAIN Routine 12/06/2017 12:11 Results for this PM CDT procedure are in the results section. MANUAL DIFFERENTIAL Routine 12/06/2017 10:47 Results for this AM CDT procedure are in the results section. CBC WITH PLATELET AND Routine 12/06/2017 10:47 Results for this DIFFERENTIAL AM CDT procedure are in the results section. POTASSIUM LEVEL Routine 12/06/2017 10:47 Results for this AM CDT procedure are in the results section. POC GLUCOSE Routine 12/06/2017 7:42 Results for this AM CDT procedure are in the results section. CBC WITH PLATELET AND Routine 12/06/2017 5:00 Results for this DIFFERENTIAL AM CDT procedure are in the results section. ZZESTIMATED GFR Routine 12/06/2017 4:00 Results for this AM CDT procedure are in the results section. PHOSPHORUS LEVEL Routine 12/06/2017 4:00 Results for this AM CDT procedure are in the results section. MAGNESIUM LEVEL Routine 12/06/2017 4:00 Results for this AM CDT procedure are in the results section. BASIC METABOLIC PANEL Routine 12/06/2017 4:00 Results for this AM CDT procedure are in the results section. POC GLUCOSE Routine 12/05/2017 10:00 Results for this PM CDT procedure are in the results section. CBC HEMOGRAM Routine 12/05/2017 9:45 Results for this AM CDT procedure are in the results section. POC GLUCOSE Routine 12/05/2017 8:02 Results for this AM CDT procedure are in the results section. ZZESTIMATED GFR Routine 12/05/2017 5:30 Results for this AM CDT procedure are in the results section. MAGNESIUM LEVEL Routine 12/05/2017 5:30 Results for this AM CDT procedure are in the results section. PHOSPHORUS LEVEL Routine 12/05/2017 5:30 Results for this AM CDT procedure are in the results section. CBC WITH PLATELET AND Routine 12/05/2017 5:30 Results for this DIFFERENTIAL AM CDT procedure are in the results section. BASIC METABOLIC PANEL Routine 12/05/2017 5:30 Results for this AM CDT procedure are in the results section. POC GLUCOSE Routine 12/04/2017 9:31 Results for this PM CDT procedure are in the results section. POC GLUCOSE Routine 12/04/2017 5:47 Results for this PM CDT procedure are in the results section. POC GLUCOSE Routine 12/04/2017 12:10 Results for this PM CDT procedure are in the results section. GASTROINTESTINAL PANEL Routine 12/04/2017 9:48 Results for this AM CDT procedure are in the results section. POC GLUCOSE Routine 12/04/2017 7:44 Results for this AM CDT procedure are in the results section. ZZESTIMATED GFR Routine 12/04/2017 4:00 Results for this AM CDT procedure are in the results section. MAGNESIUM LEVEL Routine 12/04/2017 4:00 Results for this AM CDT procedure are in the results section. PHOSPHORUS LEVEL Routine 12/04/2017 4:00 Results for this AM CDT procedure are in the results section. BASIC METABOLIC PANEL Routine 12/04/2017 4:00 Results for this AM CDT procedure are in the results section. MANUAL DIFFERENTIAL Routine 12/04/2017 3:45 Results for this AM CDT procedure are in the results section. CBC WITH PLATELET AND Routine 12/04/2017 3:45 Results for this DIFFERENTIAL AM CDT procedure are in the results section. POC GLUCOSE Routine 12/03/2017 7:55 Results for this PM CDT procedure are in the results section. POC GLUCOSE Routine 12/03/2017 5:11 Results for this PM CDT procedure are in the results section. POC GLUCOSE Routine 12/03/2017 12:51 Results for this PM CDT procedure are in the results section. POC GLUCOSE Routine 12/03/2017 8:05 Results for this AM CDT procedure are in the results section. ZZESTIMATED GFR Routine 12/03/2017 4:00 Results for this AM CDT procedure are in the results section. PHOSPHORUS LEVEL Routine 12/03/2017 4:00 Results for this AM CDT procedure are in the results section. MAGNESIUM LEVEL Routine 12/03/2017 4:00 Results for this AM CDT procedure are in the results section. CBC WITH PLATELET AND Routine 12/03/2017 4:00 Results for this DIFFERENTIAL AM CDT procedure are in the results section. BASIC METABOLIC PANEL Routine 12/03/2017 4:00 Results for this AM CDT procedure are in the results section. POC GLUCOSE Routine 12/02/2017 7:55 Results for this PM CDT procedure are in the results section. POC GLUCOSE Routine 12/02/2017 4:58 Results for this PM CDT procedure are in the results section. POC GLUCOSE Routine 12/02/2017 1:06 Results for this PM CDT procedure are in the results section. POC GLUCOSE Routine 12/02/2017 8:05 Results for this AM CDT procedure are in the results section. CBC WITH PLATELET AND Routine 12/02/2017 5:25 Results for this DIFFERENTIAL AM CDT procedure are in the results section. ZZESTIMATED GFR Routine 12/02/2017 4:00 Results for this AM CDT procedure are in the results section. BASIC METABOLIC PANEL Routine 12/02/2017 4:00 Results for this AM CDT procedure are in the results section. PHOSPHORUS LEVEL Routine 12/02/2017 4:00 Results for this AM CDT procedure are in the results section. MAGNESIUM LEVEL Routine 12/02/2017 4:00 Results for this AM CDT procedure are in the results section. POC GLUCOSE Routine 12/01/2017 9:18 Results for this PM CDT procedure are in the results section. POC GLUCOSE Routine 12/01/2017 5:04 Results for this PM CDT procedure are in the results section. POC GLUCOSE Routine 12/01/2017 12:25 Results for this PM CDT procedure are in the results section. POC GLUCOSE Routine 12/01/2017 8:18 Results for this AM CDT procedure are in the results section. HC COMPLETE BLD COUNT Routine 12/01/2017 5:25 Results for this W/AUTO DIFF AM CDT procedure are in the results section. ZZESTIMATED GFR Routine 12/01/2017 4:00 Results for this AM CDT procedure are in the results section. BASIC METABOLIC PANEL Routine 12/01/2017 4:00 Results for this AM CDT procedure are in the results section. PHOSPHORUS LEVEL Routine 12/01/2017 4:00 Results for this AM CDT procedure are in the results section. MAGNESIUM LEVEL Routine 12/01/2017 4:00 Results for this AM CDT procedure are in the results section. POC GLUCOSE Routine 11/30/2017 8:44 Results for this PM CDT procedure are in the results section. POC GLUCOSE Routine 11/30/2017 5:27 Results for this PM CDT procedure are in the results section. POC GLUCOSE Routine 11/30/2017 7:53 Results for this AM CDT procedure are in the results section. HC COMPLETE BLD COUNT Routine 11/30/2017 5:15 Results for this W/AUTO DIFF AM CDT procedure are in the results section. POC GLUCOSE Routine 11/30/2017 4:26 Results for this AM CDT procedure are in the results section. ZZESTIMATED GFR Routine 11/30/2017 4:00 Results for this AM CDT procedure are in the results section. PHOSPHORUS LEVEL Routine 11/30/2017 4:00 Results for this AM CDT procedure are in the results section. MAGNESIUM LEVEL Routine 11/30/2017 4:00 Results for this AM CDT procedure are in the results section. BASIC METABOLIC PANEL Routine 11/30/2017 4:00 Results for this AM CDT procedure are in the results section. POC GLUCOSE Routine 11/30/2017 12:24 Results for this AM CDT procedure are in the results section. POC GLUCOSE Routine 11/29/2017 8:03 Results for this PM CDT procedure are in the results section. POC GLUCOSE Routine 11/29/2017 4:46 Results for this PM CDT procedure are in the results section. POC GLUCOSE Routine 11/29/2017 2:08 Results for this PM CDT procedure are in the results section. POC GLUCOSE Routine 11/29/2017 8:15 Results for this AM CDT procedure are in the results section. POC GLUCOSE Routine 11/29/2017 4:53 Results for this AM CDT procedure are in the results section. HC COMPLETE BLD COUNT Routine 11/29/2017 4:30 Results for this W/AUTO DIFF AM CDT procedure are in the results section. ZZESTIMATED GFR Routine 11/29/2017 4:00 Results for this AM CDT procedure are in the results section. PHOSPHORUS LEVEL Routine 11/29/2017 4:00 Results for this AM CDT procedure are in the results section. MAGNESIUM LEVEL Routine 11/29/2017 4:00 Results for this AM CDT procedure are in the results section. BASIC METABOLIC PANEL Routine 11/29/2017 4:00 Results for this AM CDT procedure are in the results section. POC GLUCOSE Routine 11/28/2017 11:56 Results for this PM CDT procedure are in the results section. HC COMPLETE BLD COUNT Routine 11/28/2017 6:00 Results for this W/AUTO DIFF PM CDT procedure are in the results section. POC GLUCOSE Routine 11/28/2017 4:22 Results for this PM CDT procedure are in the results section. ZZESTIMATED GFR Routine 11/28/2017 1:50 Results for this PM CDT procedure are in the results section. PHOSPHORUS LEVEL Routine 11/28/2017 1:50 Results for this PM CDT procedure are in the results section. MAGNESIUM LEVEL Routine 11/28/2017 1:50 Results for this PM CDT procedure are in the results section. BASIC METABOLIC PANEL Routine 11/28/2017 1:50 Results for this PM CDT procedure are in the results section. PA AN ELECTIVE Routine 11/28/2017 10:21 ENDOTRACHEAL AIRWAY AM CDT Procedure Note - Andrea Rico MD - 11/28/2017 10:21 AM CDT Airway Performed by: ANDREA RICO Authorized by: ANDREA RICO Location: [place] Urgency: Elective Difficult Airway: No Preoxygenated with 100% O2: Yes C-spine Precautions Maintained Throughout: Yes Mask Ventilation: Easy mask Final Airway Type: Endotracheal airway Final Endotracheal Airway: ETT Technique Used: Direct laryngoscopy Blade Type: Archer Laryngoscope Blade/Videolaryngoscope Blade Size: 2 ETT Size (mm): 7.0 Measured from: Lips ETT to Lips (cm): 21 Placement Verified by: CO2 detection, direct visualization and equal breath sounds Laryngoscopic view: Grade IIa - partial view of glottis Rapid Sequence Induction (RSI): No Modified RSI: No Number of Attempts at Approach: 1 LAPAROTOMY, EXPLORATORY 11/28/2017 8:55 AM Lateral ventral CDT hernia REPAIR, HERNIA, 11/28/2017 8:55 AM Lateral ventral INCISIONAL OR VENTRAL CDT hernia POC GLUCOSE Routine 11/28/2017 8:12 AM Results for this CDT procedure are in the results section. ZZESTIMATED GFR Routine 11/28/2017 4:00 AM Results for this CDT procedure are in the results section. VALPROIC ACID LEVEL Routine 11/28/2017 4:00 AM Results for this CDT procedure are in the results section. TYPE AND SCREEN Routine 11/28/2017 4:00 AM Results for this CDT procedure are in the results section. PROTHROMBIN TIME WITH Routine 11/28/2017 4:00 AM Results for this INR CDT procedure are in the results section. PHOSPHORUS LEVEL Routine 11/28/2017 4:00 AM Results for this CDT procedure are in the results section. PARTIAL THROMBOPLASTIN Routine 11/28/2017 4:00 AM Results for this TIME (PTT) CDT procedure are in the results section. MAGNESIUM LEVEL Routine 11/28/2017 4:00 AM Results for this CDT procedure are in the results section. HC COMPLETE BLD COUNT Routine 11/28/2017 4:00 AM Results for this W/AUTO DIFF CDT procedure are in the results section. BASIC METABOLIC PANEL Routine 11/28/2017 4:00 AM Results for this CDT procedure are in the results section. POC GLUCOSE Routine 11/28/2017 3:58 AM Results for this CDT procedure are in the results section. POC GLUCOSE Routine 11/27/2017 8:52 PM Results for this CDT procedure are in the results section. POC GLUCOSE Routine 11/27/2017 1:00 PM Results for this CDT procedure are in the results section. POC GLUCOSE Routine 11/27/2017 8:31 AM Results for this CDT procedure are in the results section. ZZESTIMATED GFR Routine 11/27/2017 5:25 AM Results for this CDT procedure are in the results section. PHOSPHORUS LEVEL Routine 11/27/2017 5:25 AM Results for this CDT procedure are in the results section. MAGNESIUM LEVEL Routine 11/27/2017 5:25 AM Results for this CDT procedure are in the results section. HC COMPLETE BLD COUNT Routine 11/27/2017 5:25 AM Results for this W/AUTO DIFF CDT procedure are in the results section. BASIC METABOLIC PANEL Routine 11/27/2017 5:25 AM Results for this CDT procedure are in the results section. POC GLUCOSE Routine 11/26/2017 11:10 PM Results for this CDT procedure are in the results section. ZZESTIMATED GFR Routine 11/26/2017 5:35 AM Results for this CDT procedure are in the results section. HC COMPLETE BLD COUNT Routine 11/26/2017 5:35 AM Results for this W/AUTO DIFF CDT procedure are in the results section. BASIC METABOLIC PANEL Routine 11/26/2017 5:35 AM Results for this CDT procedure are in the results section. XR ABDOMEN 2 VW AP W STAT 11/25/2017 10:12 AM Results for this UPRIGHT AND/OR DECUBITUS CDT procedure are in the results section. HC COMPLETE BLD COUNT Routine 11/25/2017 4:50 AM Results for this W/AUTO DIFF CDT procedure are in the results section. ZZESTIMATED GFR Routine 11/25/2017 4:00 AM Results for this CDT procedure are in the results section. BASIC METABOLIC PANEL Routine 11/25/2017 4:00 AM Results for this CDT procedure are in the results section. POC GLUCOSE Routine 11/25/2017 3:31 AM Results for this CDT procedure are in the results section. POC GLUCOSE Routine 11/24/2017 11:02 PM Results for this CDT procedure are in the results section. POC GLUCOSE Routine 11/24/2017 8:49 PM Results for this CDT procedure are in the results section. POC GLUCOSE Routine 11/24/2017 3:03 PM Results for this CDT procedure are in the results section. POC GLUCOSE Routine 11/24/2017 12:05 PM Results for this CDT procedure are in the results section. CREATININE LEVEL, URINE, Routine 11/24/2017 10:55 AM Results for this RANDOM CDT procedure are in the results section. SODIUM LEVEL, URINE, Routine 11/24/2017 10:55 AM Results for this RANDOM CDT procedure are in the results section. URINALYSIS, AUTOMATED Routine 11/24/2017 10:55 AM Results for this WITH MICROSCOPY CDT procedure are in the results section. POC GLUCOSE Routine 11/24/2017 8:05 AM Results for this CDT procedure are in the results section. CBC WITH PLATELET AND Routine 11/24/2017 5:30 AM Results for this DIFFERENTIAL CDT procedure are in the results section. POC GLUCOSE Routine 11/24/2017 4:53 AM Results for this CDT procedure are in the results section. PHOSPHORUS LEVEL Routine 11/24/2017 4:00 AM Results for this CDT procedure are in the results section. MAGNESIUM LEVEL Routine 11/24/2017 4:00 AM Results for this CDT procedure are in the results section. BASIC METABOLIC PANEL Routine 11/24/2017 4:00 AM Results for this CDT procedure are in the results section. ZZESTIMATED GFR Routine 11/24/2017 4:00 AM Results for this CDT procedure are in the results section. POC GLUCOSE Routine 11/23/2017 11:42 PM Results for this CDT procedure are in the results section. POC GLUCOSE Routine 11/23/2017 8:20 PM Results for this CDT procedure are in the results section. XR CHEST 1 VW PORTABLE Routine 11/23/2017 5:00 PM Results for this CDT procedure are in the results section. XR ABDOMEN 1 VW PORTABLE STAT 11/23/2017 5:00 PM Results for this CDT procedure are in the results section. ECG 12-LEAD Routine 11/23/2017 2:52 PM Results for this CDT procedure are in the results section. VALPROIC ACID LEVEL Routine 11/23/2017 2:46 PM Results for this CDT procedure are in the results section. ZZESTIMATED GFR Routine 11/23/2017 2:46 PM Results for this CDT procedure are in the results section. PREALBUMIN LEVEL Routine 11/23/2017 2:46 PM Results for this CDT procedure are in the results section. LIPASE LEVEL Routine 11/23/2017 2:46 PM Results for this CDT procedure are in the results section. LACTIC ACID LEVEL Routine 11/23/2017 2:46 PM Results for this CDT procedure are in the results section. HEPATIC FUNCTION PANEL Routine 11/23/2017 2:46 PM Results for this CDT procedure are in the results section. HEMOGLOBIN A1C Routine 11/23/2017 2:46 PM Results for this CDT procedure are in the results section. B NATRIURETIC PEPTIDE Routine 11/23/2017 2:46 PM Results for this CDT procedure are in the results section. BASIC METABOLIC PANEL Routine 11/23/2017 2:46 PM Results for this CDT procedure are in the results section. PARTIAL THROMBOPLASTIN Routine 11/23/2017 2:46 PM Results for this TIME (PTT) CDT procedure are in the results section. PROTHROMBIN TIME WITH Routine 11/23/2017 2:46 PM Results for this INR CDT procedure are in the results section. HC COMPLETE BLD COUNT Routine 11/23/2017 2:46 PM Results for this W/AUTO DIFF CDT procedure are in the results section. POC GLUCOSE Routine 11/23/2017 11:51 AM Results for this CDT procedure are in the results section. after 11/07/2017 Results Estimated GFR (10/27/2018 8:25 AM CDT)Only the most recent of15 resultswithin the time period is included. Estimated GFR 11 (A) mL/min/1.73 m2 [facility] Comment: HOSPITAL CatergoryUnitsInterpretation G1 >=90 Normal or high G2 60-89Mildly decreased [id number] to moderately decreased [id number] to severely decreased G4 15-29Severely decreased G5 <15Kidney failure The eGFR was calculated using the Chronic Kidney Disease Epidemiology Collaboration (CKD-EPI) equation. Interpretation is based on recommendations of the National Kidney Foundation-Kidney Disease Outcomes Quality Initiative (NKF-KDOQI) published in 2014. Specimen Plasma specimen Performing Organization Address City/State/Zipcode Phone Number [facility] DEPARTMENT OF PATHOLOGY AND [address] [place] [address] GENOMIC MEDICINE [facility] [address] [place] [address] CBC with platelet and differential (10/27/2018 8:25 AM CDT)Only the most recent of27 resultswithin the time period is included. WBC 3.85 (L) 4.50 - 11.00 k/uL [facility] RBC 3.06 (L) 4.20 - 5.50 m/uL [facility] HGB 9.3 (L) 12.0 - 16.0 g/dL [facility] HCT 31.7 (L) 37.0 - 47.0 % [facility] MCV 103.6 (H) 82.0 - 100.0 fL [facility] MCH 30.4 27.0 - 34.0 pg [facility] MCHC 29.3 (L) 31.0 - 37.0 g/dL [facility] RDW - SD 63.9 (H) 37.0 - 55.0 fL [facility] MPV 9.8 8.8 - 13.2 fL [facility] Platelet count 168 150 - 400 k/uL [facility] Nucleated RBC 0.80 /100 WBC [facility] Neutrophils 55.6 39.0 - 69.0 % [facility] Lymphocytes 27.8 25.0 - 45.0 % [facility] Monocytes 13.0 (H) 0.0 - 10.0 % [facility] Eosinophils 2.3 0.0 - 5.0 % [facility] Basophils 0.5 0.0 - 1.0 % [facility] Immature granulocytes 0.8Comment: "Immature 0.0 - 1.0 % [facility] granulocytes" [facility] (promyelocytes, myelocytes, metamyelocytes) Specimen Blood Performing Organization Address City/[facility]/Zipcode Phone Number [facility] DEPARTMENT OF PATHOLOGY AND [address] [place] [address] [address] Basic metabolic panel (10/27/2018 8:25 AM CDT)Only the most recent of29 resultswithin the time period is included. Sodium 148 135 - 148 mEq/L [facility] Potassium 4.1 3.5 - 5.0 mEq/L [facility] Chloride 104 98 - 112 mEq/L [facility] CO2 25 24 - 31 mEq/L [facility] Anion gap 19@ANIO (H) 7 - 15 mEq/L [facility] BUN 48 (H) 8 - 23 mg/dL [facility] Creatinine 4.25 (H) 0.50 - 0.90 mg/dL [facility] Glucose 106 (H) 65 - 99 mg/dL [facility] Calcium 9.2 8.8 - 10.2 mg/dL [facility] Specimen Plasma specimen Performing Organization Address City/[facility]/Zipcode Phone Number [facility] DEPARTMENT OF PATHOLOGY AND [address] [place] [address] [address] IR Non-Tunneled Central Line Removal (10/25/2018 3:34 PM CDT) Narrative Performed At Procedure: Removal of temporary dialysis catheter [facility] Clinical History: A tunneled dialysis catheter was placed Sedation: See the report for placement of tunneled dialysis catheter Anesthesia: Local Radiation dose: Ka,r=0 mGy Technique: After discussing the risks and benefits of the procedure with the patient she agreed to the procedure. After prepping and draping the right side of the neck, the sutures were cut and the catheter removed. Hemostasis was obtained. Complications: None Impression: Successful removal of the patient's right internal jugular vein temporary dialysis catheter. Blood Loss: Less than 1 mL [facility]-[id number] Procedure Note Hm Interface, Radiology Results Incoming - 10/25/2018 3:48 PM CDT Procedure: Removal of temporary dialysis catheter Clinical History: A tunneled dialysis catheter was placed Sedation: See the report for placement of tunneled dialysis catheter Anesthesia: Local Radiation dose: Ka,r=0 mGy Technique: After discussing the risks and benefits of the procedure with the patient she agreed to the procedure. After prepping and draping the right side of the neck, the sutures were cut and the catheter removed. Hemostasis was obtained. Complications: None Impression: Successful removal of the patient's right internal jugular vein temporary dialysis catheter. Blood Loss: Less than 1 mL [id number] Performing Organization Address City/State/Zipcode Phone Number [facility] [address] [place] [address] IR Tunneled Dialysis Catheter Placement (10/25/2018 3:34 PM CDT)Only the most recent of2 resultswithin the time period is included. Narrative Performed At Procedure: Placement of tunneled dialysis catheter [facility] Clinical History: End-stage renal disease Sedation: Versed and fentanyl were utilized for monitored conscious sedation during the procedure. The patient was transferred to the recovery room at the end of the procedure for further monitoring. [id number]-[id number] time 21 minutes Anesthesia: Local Radiation dose: Ka,r=13 mGy Technique: After discussing the risks and benefits of the procedure and moderate conscious sedation with the patient she agreed to the procedure. All elements of maximal sterile barrier technique were followed. A recorded image of the small left internal jugular vein was obtained. After prepping and draping the left side of the neck and chest, local anesthesia was administered and the internal jugular vein accessed with a 21-gauge needle under real-time ultrasound guidance. A 0.018 guidewire was advanced to the right atrium under fluoroscopy this again demonstrated a left superior vena cava. Local anesthesia was administered from the infraclavicular region to the initial puncture site. The 23 cm Arrow Edge dialysis catheter was brought through the tunnel. A 5 [place] catheter was placed over the initially placed guidewire and an Amplatz guidewire advanced into the right atrium. After dilatation, the dialysis catheter was placed with its tip at the junction the superior vena cava and right atrium. The lumens aspirated and injected easily. They were flushed with heparin. The initial puncture site was sealed with Dermabond and the catheter exit site closed with 2-0 silk suture. Complications: None Impression: Successful placement of a left internal jugular vein tunneled dialysis catheter via the left superior vena cava. Blood Loss: Less than 1 mL [id number] Procedure Note Interface, Radiology Results Incoming - 10/25/2018 3:47 PM CDT Procedure: Placement of tunneled dialysis catheter Clinical History: End-stage renal disease Sedation: Versed and fentanyl were utilized for monitored conscious sedation during the procedure. The patient was transferred to the recovery room at the end of the procedure for further monitoring. [id number] time 21 minutes Anesthesia: Local Radiation dose: Ka,r=13 mGy Technique: After discussing the risks and benefits of the procedure and moderate conscious sedation with the patient she agreed to the procedure. All elements of maximal sterile barrier technique were followed. A recorded image of the small left internal jugular vein was obtained. After prepping and draping the left side of the neck and chest, local anesthesia was administered and the internal jugular vein accessed with a 21- gauge needle under real-time ultrasound guidance. A 0.018 guidewire was advanced to the right atrium under fluoroscopy this again demonstrated a left superior vena cava. Local anesthesia was administered from the infraclavicular region to the initial puncture site. The 23 cm Arrow Edge dialysis catheter was brought through the tunnel. A 5 [place] catheter was placed over the initially placed guidewire and an Amplatz guidewire advanced into the right atrium. After dilatation, the dialysis catheter was placed with its tip at the junction the superior vena cava and right atrium. The lumens aspirated and injected easily. They were flushed with heparin. The initial puncture site was sealed with Dermabond and the catheter exit site closed with 2-0 silk suture. Complications: None Impression: Successful placement of a left internal jugular vein tunneled dialysis catheter via the left superior vena cava. Blood Loss: Less than 1 mL [facility] [facility]-[id number] Performing Organization Address [facility] Phone Number LUCY [address] [place] [address] Transfuse RBC (10/22/2018 10:33 PM CDT)Only the most recent of7 resultswithin the time period is included.Smear review (10/22/2018 5:00 AM CDT)Only the most recent of2 resultswithin the time period is included. Platelet slide review Mary Ellen adequate [facility] Anisocytosis Moderate [facility] Polychromasia Moderate [facility] Ovalocytes Moderate [facility] Performing Organization Address City/[facility]/Zipcode Phone Number [facility] DEPARTMENT OF PATHOLOGY AND [address] [place] [phone] [address] Prepare RBC, 2 Units (10/22/2018 5:00 AM CDT) Product name Red Blood Cells -1, [facility] Unit number [id number] [facility] Product code [id number] [facility] Dispense status Transfused [facility] Blood expiration date [facility] Blood type code 7300 [facility] Blood type B POSITIVE [facility] Product name Red Blood Cells -1, [facility] Unit number [id number] [facility] Product code [id number] [facility] Dispense status Transfused [facility] Blood expiration date [facility] Blood type code 7300 [facility] Blood type B POSITIVE [facility] Specimen Blood Performing Organization Address [facility] Phone Number [facility] DEPARTMENT OF PATHOLOGY AND [address] [place] [phone] [address] Type and screen (10/22/2018 5:00 AM CDT)Only the most recent of2 resultswithin the time period is included. ABO grouping B [facility] Rh type POS [facility] Antibody screen (gel) NEG [facility] Specimen Blood Performing Organization Address City/[facility] Phone Number [facility] DEPARTMENT OF PATHOLOGY AND [address] [place] [phone] [address] Blood culture, aerobic & anaerobic (10/17/2018 7:40 AM CDT)Only the most recent of6 resultswithin the time period is included. Blood culture isolate No growth after 5 days of incubation. [facility] Comment: HOSPITAL Specimen Information Specimen Source: Blood Specimen Site: Hand Left Specimen Blood Performing Organization Address City/[facility] Phone Number [facility] DEPARTMENT OF PATHOLOGY AND [address] [place] [phone] [address] Magnesium level (10/17/2018 3:30 AM CDT)Only the most recent of14 resultswithin the time period is included. Magnesium 1.9 1.6 - 2.4 mg/dL [facility] Specimen Plasma specimen Performing Organization Address City/State/Zipcode Phone Number [facility] DEPARTMENT OF PATHOLOGY AND [address] [place] [phone] [place] [phone] POC glucose (10/16/2018 8:37 PM CDT)Only the most recent of55 resultswithin the time period is included. POC glucose 160 (H) 65 - 99 mg/dL [facility] Comment: [facility] Notified RN Meter ID: [id number] Electro Mechanical Technologist: Rylan Mackay Performing Organization Address City/[facility] Cent[facility] Phone Number [facility] DEPARTMENT OF PATHOLOGY AND [address] [place] [address] IR Tunneled Dialysis Catheter Removal (10/16/2018 5:43 PM CDT) Narrative Performed At EXAMINATION:IR TUNNELED DIALYSIS CATHETER REMOVAL [facility] CLINICAL HISTORY:ESRD ON DIALYSIS, remove dialysis catheter COMPARISON:None. PROCEDURE: Venogram through existing dialysis catheter. Tunneled central venous catheter removal Procedural Personnel Attending physician(s): Joseph Quintanilla MD Pre-procedure diagnosis: Infected hemodialysis catheter. Post-procedure diagnosis: Same Indication: Catheter-related bloodstream infection Additional clinical history: None Complications: No immediate complications. IMPRESSION:Venogram demonstrating the catheter position within a left-sided SVC. Removal of left-sided tunneled dialysis catheter. Plan: Please re-consult interventional radiology if new catheter placement is desired. PROCEDURE SUMMARY: - Tunneled central venous catheter removal - Additional procedure(s): Venogram through existing catheter. PROCEDURE DETAILS: Pre-procedure Consent: Informed consent for the procedure including risks, benefits and alternatives was obtained and time-out was performed prior to the procedure. Preparation: The site was prepared and draped using maximal sterile barrier technique including cutaneous antisepsis. Anesthesia/sedation Level of anesthesia/sedation: No sedation Anesthesia/sedation administered by: Not applicable Total intra-service sedation time (minutes): Not applicable Venography Indication for venography: Confirmation of position or mapping of vascular anatomy Vein catheterized: Indwelling tunneled hemodialysis catheter was utilized for venography. Findings: Left-sided SVC. No evidence of contrast extravasation to suggest vascular etiology for the patient's hemothorax. Catheter removal Local anesthesia was administered. The catheter was removed over a wire with a combination of traction and blunt dissection. Closure Hemostasis was achieved with manual compression. Sterile dressing(s) applied. Contrast Contrast agent: Visipaque 270 Contrast volume (mL): 25 Radiation Dose Reference air kerma (mGy): 45 Additional Details Additional description of procedure: None Equipment details: None Specimens removed: Tunneled central venous catheter. Estimated blood loss (mL): Less than 10 Standardized report: [email or web address] [facility]-[id number] Procedure Note [facility], Radiology Results Incoming - 10/16/2018 6:03 PM CDT EXAMINATION: IR TUNNELED DIALYSIS CATHETER REMOVAL CLINICAL HISTORY: ESRD ON DIALYSIS, remove dialysis catheter COMPARISON: None. PROCEDURE: Venogram through existing dialysis catheter. Tunneled central venous catheter removal Procedural Personnel Attending physician(s): Joseph Quintanilla MD Pre-procedure diagnosis: Infected hemodialysis catheter. Post-procedure diagnosis: Same Indication: Catheter-related bloodstream infection Additional clinical history: None Complications: No immediate complications. IMPRESSION: Venogram demonstrating the catheter position within a left-sided SVC. Removal of left-sided tunneled dialysis catheter. Plan: Please re-consult interventional radiology if new catheter placement is desired. PROCEDURE SUMMARY: - Tunneled central venous catheter removal - Additional procedure(s): Venogram through existing catheter. PROCEDURE DETAILS: Pre-procedure Consent: Informed consent for the procedure including risks, benefits and alternatives was obtained and time-out was performed prior to the procedure. Preparation: The site was prepared and draped using maximal sterile barrier technique including cutaneous antisepsis. Anesthesia/sedation Level of anesthesia/sedation: No sedation Anesthesia/sedation administered by: Not applicable Total intra-service sedation time (minutes): Not applicable Venography Indication for venography: Confirmation of position or mapping of vascular anatomy Vein catheterized: Indwelling tunneled hemodialysis catheter was utilized for venography. Findings: Left-sided SVC. No evidence of contrast extravasation to suggest vascular etiology for the patient's hemothorax. Catheter removal Local anesthesia was administered. The catheter was removed over a wire with a combination of traction and blunt dissection. Closure Hemostasis was achieved with manual compression. Sterile dressing(s) applied. Contrast Contrast agent: Visipaque 270 Contrast volume (mL): 25 Radiation Dose Reference air kerma (mGy): 45 Additional Details Additional description of procedure: None Equipment details: None Specimens removed: Tunneled central venous catheter. Estimated blood loss (mL): Less than 10 Standardized report: [email or web address] [facility]-[id number] Performing Organization Address [facility] Phone Number [facility] [address] [place] [address] CBC hemogram (10/16/2018 10:00 AM CDT)Only the most recent of2 resultswithin the time period is included. WBC 3.99 (L) 4.50 - 11.00 k/uL [facility] RBC 2.25 (L) 4.20 - 5.50 m/uL [facility] HGB 7.1 (L) 12.0 - 16.0 g/dL [facility] HCT 23.3 (L) 37.0 - 47.0 % [facility] MCV 103.6 (H) 82.0 - 100.0 fL [facility] MCH 31.6 27.0 - 34.0 pg [facility] MCHC 30.5 (L) 31.0 - 37.0 g/dL [facility] RDW - SD 55.3 (H) 37.0 - 55.0 fL [facility] MPV 9.1 8.8 - 13.2 fL [facility] Platelet count 129 (L) 150 - 400 k/uL [facility] Nucleated RBC 0.00 /100 WBC [facility] Performing Organization Address City/[facility]/Zipcode Phone Number [facility] DEPARTMENT OF PATHOLOGY AND [address] [place] [phone] [place] [phone] Phosphorus level (10/16/2018 5:10 AM CDT)Only the most recent of13 resultswithin the time period is included. Phosphorus 2.6 2.4 - 4.5 mg/dL [facility] Specimen Plasma specimen Performing Organization Address City/[facility] Centercode Phone Number [facility] DEPARTMENT OF PATHOLOGY AND [address] [place] [address] Arterial blood gas (10/15/2018 10:38 PM CDT)Only the most recent of6 resultswithin the time period is included. pH, arterial 7.43 7.35 - 7.45 [facility] pCO2, arterial 42 35 - 45 mmHg [facility] pO2, arterial 154 (H) 80 - 90 mmHg [facility] Bicarbonate, arterial 27.0 21.0 - 28.0 mmol/L [facility] Base excess, arterial 3 (H) -2 - 2 mEq/L [facility] O2 saturation, arterial 100 95 - 100 % [facility] Specimen Blood Performing Organization Address [facility] Phone Number [facility] DEPARTMENT OF PATHOLOGY AND [address] [place] [phone] Vancomycin level, random (10/15/2018 4:41 AM CDT)Only the most recent of2 resultswithin the time period is included. Vancomycin, random 21.1 ug/mL [facility] Specimen Serum Performing Organization Address City/[facility] Centercode Phone Number [facility] DEPARTMENT OF PATHOLOGY AND [address] [place] [address] XR Chest 1 Vw Portable (10/14/2018 8:28 AM CDT)Only the most recent of5 resultswithin the time period is included. Narrative Performed At EXAMINATION:XR CHEST 1 VW PORTABLE [facility] CLINICAL HISTORY:Dyspnea COMPARISON:10 October 2018 IMPRESSION: Left IJ catheter remains in position.There is continuing cardiomegaly mediastinal widening.Bilateral perihilar infiltrate is more extensive on the left where there is also pleural effusion. [facility]-[id number] Procedure Note Interface, Radiology Results Incoming - 10/14/2018 8:52 AM CDT EXAMINATION: XR CHEST 1 VW PORTABLE CLINICAL HISTORY: Dyspnea COMPARISON: 10 October 2018 IMPRESSION: Left IJ catheter remains in position. There is continuing cardiomegaly mediastinal widening. Bilateral perihilar infiltrate is more extensive on the left where there is also pleural effusion. [facility]-[id number] Performing Organization Address City/[facility] Cent[facility]ode Phone Number [facility] [address] [place] [address] Lactic acid level, SEPSIS - Now and repeat 2x every 3 hours (10/14/2018 5:10 AM CDT)Only the most recent of2 resultswithin the time period is included. Lactic acid 0.7 0.5 - 2.2 mmol/L [facility] Specimen Plasma specimen Performing Organization Address [facility] Centercode Phone Number [facility] DEPARTMENT OF PATHOLOGY AND [address] [place] [phone] [facility] [address] [address] XR Forearm 2 Vw Right (10/11/2018 2:01 PM CDT) Narrative Performed At EXAMINATION:XR FOREARM 2 VW RIGHT [facility] CLINICAL HISTORY:fall wtih persistent pain R forearm COMPARISON:none. IMPRESSION: 1.No displaced fractures or dislocations. [facility]-[id number] Procedure Note Interface, Radiology Results Incoming - 10/11/2018 3:58 PM CDT EXAMINATION: XR FOREARM 2 VW RIGHT CLINICAL HISTORY: fall wtih persistent pain R forearm COMPARISON: none. IMPRESSION: 1. No displaced fractures or dislocations. [facility]-[id number] Performing Organization Address City/[facility] Centercode Phone Number [facility] [address] [place] [address] Gram stain (10/10/2018 6:48 PM CDT)Only the most recent of3 resultswithin the time period is included. Gram stain result Few WBC's [facility] No organisms seen Comment: Specimen Information Specimen Source: Urine Specimen Site: Catheterized Specimen Urine - Catheterized Performing Organization Address City/[facility]/Zipcode Phone Number [facility] DEPARTMENT OF PATHOLOGY AND [address] [place] [address] [place] [address] GENOMIC MEDICINE [facility] [address] [place] [address] Urine culture (10/10/2018 6:48 PM CDT)Only the most recent of2 resultswithin the time period is included. Urine culture isolate Escherichia coli [facility] 10-5 cfu/ml HOSPITAL The performance characteristics of this assay on this isolate were validated by the Microbiology Laboratory at [facility].This source has not been approved by the U.S. Food and Drug Administration.The results are not intended to be used as the sole means for clinical diagnosis or patient management.The Microbiology Laboratory is authorized under the clinical Laboratory Improvement Amendments of 1988 (CLIA-88) to perform high complexity testing. (A) Comment: Specimen Information Specimen Source: Urine Specimen Site: Catheterized Specimen Urine - Catheterized Organism Antibiotic Method Susceptibility Escherichia coli Ampicillin MATTEO >16 mcg/mL: Resistant Escherichia coli Amoxicillin/Clavulanate MATTEO >16/8 mcg/mL: Resistant Escherichia coli Amikacin MATTEO <=4 mcg/mL: Susceptible Escherichia coli Aztreonam MATTEO <=1 mcg/mL: Susceptible Escherichia coli Ceftazidime MATTEO <=0.5 mcg/mL: Susceptible Escherichia coli Ciprofloxacin MATTEO >2 mcg/mL: Resistant Escherichia coli Ceftriaxone MATTEO <=0.5 mcg/mL: Susceptible Escherichia coli Cefuroxime Sodium MATTEO <=4 mcg/mL: Susceptible Escherichia coli Cefazolin MATTEO >32 mcg/mL: Resistant Escherichia coli Cefepime MATTEO <=0.5 mcg/mL: Susceptible Escherichia coli Nitrofurantoin MATTEO <=16 mcg/mL: Susceptible Escherichia coli Cefoxitin MATTEO <=4 mcg/mL: Susceptible Escherichia coli Gentamicin MATTEO 2 mcg/mL: Susceptible Escherichia coli Imipenem MATTEO <=0.25 mcg/mL: Susceptible Escherichia coli Levofloxacin MATTEO >4 mcg/mL: Resistant Escherichia coli Meropenem MATTEO <=0.125 mcg/mL: Susceptible Escherichia coli Tobramycin MATTEO 1 mcg/mL: Susceptible Escherichia coli Ampicillin/Sulbactam MATTEO >16/8 mcg/mL: Resistant Escherichia coli Trimethoprim/Sulfamethoxazole MATTEO >2/38 mcg/mL: Resistant Escherichia coli Tetracycline MATTEO >8 mcg/mL: Resistant Escherichia coli Piperacillin/Tazobactam MATTEO >64/4 mcg/mL: Resistant Escherichia coli Ertapenem MATTEO <=0.125 mcg/mL: Susceptible Escherichia coli Tigecycline MATTEO <=0.5 mcg/mL: Susceptible Performing Organization Address City/[facility]ode Phone Number [facility] DEPARTMENT OF PATHOLOGY AND [address] [place] [address] Urinalysis screen and microscopy, with reflex to culture (10/10/2018 5:28 PM CDT)Only the most recent of2 resultswithin the time period is included. Specimen site Catheterized [facility] Color, UA Red [facility] Appearance, UA Turbid [facility] Specific gravity, UA 1.021 1.001 - 1.035 [facility] pH, UA 5.0 5.0 - 8.5 [facility] Protein, UA 2+ (A) Negative [facility] Glucose, UA Negative Negative [facility] Ketones, UA Negative Negative [facility] Bilirubin, UA Negative Negative [facility] Blood, UA Moderate (A) Negative [facility] Nitrite, UA Negative Negative [facility] Urobilinogen, UA <2.0 <2.0 [facility] Leukocyte esterase, UA Moderate (A) Negative [facility] WBC, UA >180 (H) 0 - 4 /HPF [facility] RBC, UA 8 (H) 0 - 5 /HPF [facility] Bacteria, UA Moderate (A) None seen [facility] WBC clumps, UA Many (A) [facility] Yeast, UA None seen [facility] Yeast with pseudohyphae, UA None seen [facility] Specimen Urine Performing Organization Address City/[facility] Centercode Phone Number [facility] DEPARTMENT OF PATHOLOGY AND [address] [place] [phone] Respiratory pathogen panel (10/09/2018 4:25 PM CDT) Respiratory pathogen Negative for all pathogens tested: [facility] Negative for Adenovirus [facility] Negative for Coronavirus HKU1 Negative for Coronavirus [...] Specimen Information Specimen Source: Nares Specimen Site: Right Specimen Nares - Right Performing Organization Address [facility] Centercode Phone Number [facility] DEPARTMENT OF PATHOLOGY AND [address] [place] [address] Influenza antigen test, reflex negative to RPP (10/09/2018 4:25 PM CDT) Influenza antigen Negative for Influenza A/B antigen. [facility] Comment: Specimen Information Specimen Source: Nares Specimen Site: Right Specimen Nares - Right Performing Organization Address [facility] Centercode Phone Number [facility] DEPARTMENT OF PATHOLOGY AND [address] [place] [phone] XR Chest 1 Vw (10/08/2018 7:35 PM CDT) Narrative Performed At EXAMINATION:XR CHEST 1 VW [facility] CLINICAL HISTORY:post thora COMPARISON:10/05/2018 IMPRESSION: Moderate to marked enlargement of cardiac silhouette. Left-sided dialysis catheter is identified. 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 Small left pleural effusion, decreased in size since previous exam. Mild to moderate vascular congestion. No pneumothorax. No other significant interval change. [facility]-[id number] Procedure Note Hm Interface, Radiology Results Incoming - 10/08/2018 10:30 PM CDT EXAMINATION: XR CHEST 1 VW CLINICAL HISTORY: post thora COMPARISON: 10/05/2018 IMPRESSION: Moderate to marked enlargement of cardiac silhouette. Left-sided dialysis catheter is identified. 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 Small left pleural effusion, decreased in size since previous exam. Mild to moderate vascular congestion. No pneumothorax. No other significant interval change. [facility]-[id number] Performing Organization Address [facility] Phone Number [facility] [address] [place] [address] [place] Thoracentesis With Imaging (10/08/2018 6:55 PM CDT) Narrative Performed At EXAMINATION:US THORACENTESIS WITH IMAGING [facility] CLINICAL HISTORY: shortness of breathhypoxemialeft sided effusion CONSENT: Risks, benefits, and alternatives were discussed. Written informed consent was obtained prior to the procedure. ANESTHESIA: Lidocaine Local. TECHNIQUE:Patient was placed in a seated upright position. Skin was sterilely prepped and draped. Lidocaine was infiltrated into the soft tissues for local anesthesia. Using ultrasound guidance, a 5 [place] One-Step catheter was advanced over a trocar into the left pleural space. 0.6 L of bloody pleural fluid was removed. Patient tolerated the procedure well without immediate complication and left the room in stable condition. EBL: 0 ml. SPECIMENS: Specimen was sent if ordered. ASSISTANTS: None. IMPRESSION:Uncomplicated ultrasound-guided left thoracentesis. Procedure Note [facility], Radiology Results Incoming - 10/09/2018 6:24 AM CDT EXAMINATION: US THORACENTESIS WITH IMAGING CLINICAL HISTORY: shortness of breath hypoxemia left sided effusion CONSENT: Risks, benefits, and alternatives were discussed. Written informed consent was obtained prior to the procedure. ANESTHESIA: Lidocaine Local. TECHNIQUE: Patient was placed in a seated upright position. Skin was sterilely prepped and draped. Lidocaine was infiltrated into the soft tissues for local anesthesia. Using ultrasound guidance, a 5 [place] One-Step catheter was advanced over a trocar into the left pleural space. 0.6 L of bloody pleural fluid was removed. Patient tolerated the procedure well without immediate complication and left the room in stable condition. EBL: 0 ml. SPECIMENS: Specimen was sent if ordered. ASSISTANTS: None. IMPRESSION: Uncomplicated ultrasound-guided left thoracentesis. Performing Organization Address [facility] [place] [address] Aerobic culture (10/08/2018 6:45 PM CDT) Aerobic culture isolate No growth after 3 days. [facility] Comment: HOSPITAL Specimen Information Specimen Source: Pleural fluid Specimen Site: Chest, left Specimen Pleural fluid - Chest, left Performing Organization Address [facility] Cent[facility]ode Phone Number [facility] DEPARTMENT OF PATHOLOGY AND [address] [place] [phone] [address] AFB stain (10/08/2018 6:45 PM CDT) AFB stain No acid fast bacilli (AFB) seen. [facility] Comment: Specimen Information Specimen Source: Pleural fluid Specimen Site: Chest, left Specimen Pleural fluid - Chest, left Performing Organization Address City/[facility] Phone Number [facility] DEPARTMENT OF PATHOLOGY AND [address] [place] [phone] [address] Anaerobic culture (10/08/2018 6:45 PM CDT) Anaerobic culture isolate No anaerobic organisms isolated. [facility] Comment: HOSPITAL Specimen Information Specimen Source: Pleural fluid Specimen Site: Chest, left Specimen Pleural fluid - Chest, left Performing Organization Address [facility] Phone Number [facility] DEPARTMENT OF PATHOLOGY AND [address] [place] [phone] [address] Cell count and differential, body fluid (10/08/2018 6:45 PM CDT) [facility] fluid type Pleural [facility] Color, fluid Red [facility] Appearance, fluid Hazy [facility] RBC, fluid 86,000 /CMM [facility] Nucleated cells, fluid 1,965 /CMM [facility] Fluid mononuclear cell See Diff [facility] Neutrophils, fluid 17 % [facility] Lymphocytes, fluid 14 % [facility] Mesothelial cells, fluid 8 % [facility] Macrophages, fluid 61 % [facility] Specimen Fluid Performing Organization Address City/[facility] Phone Number [facility] DEPARTMENT OF PATHOLOGY AND [address] [place] [phone] [address] Protein, misc fluid (10/08/2018 6:45 PM CDT) Fluid type Pleural [facility] Protein, fluid 4.0 g/dL [facility] Comment: Analysis performed on Eliana 8000 analyzer. This is not an approved methodology for this specimen type;accuracy and clinical significance uncertain. Specimen Fluid Performing Organization Address City/State/Zipcode Phone Number [facility] DEPARTMENT OF PATHOLOGY AND [address] [place] [phone] [place] [phone] LDH, misc fluid (10/08/2018 6:45 PM CDT) Fluid type Pleural [facility] LDH, fluid 255 U/L [facility] Comment: Analysis performed on Eliana 8000 analyzer. This is not an approved methodology for this specimen type;accuracy and clinical significance uncertain. Specimen Fluid Performing Organization Address City/[facility]/Zipcode Phone Number [facility] DEPARTMENT OF PATHOLOGY AND [address] [place] [phone] [place] [address] Glucose level, misc fluid (10/08/2018 6:45 PM CDT) Fluid type Pleural [facility] Glucose, fluid 110 mg/dL [facility] Comment: Analysis performed on Eliana 8000 analyzer. This is not an approved methodology for this specimen type;accuracy and clinical significance uncertain. Specimen Fluid Performing Organization Address City/[facility] Phone Number [facility] DEPARTMENT OF PATHOLOGY AND [address] [place] [phone] [place] [address] pH, misc fluid (10/08/2018 6:45 PM CDT) Fluid type Pleural [facility] pH, fluid 8.00Comment: Reference ranges are not [facility] established for Miscellanous specimens. Specimen Fluid Performing Organization Address City/[facility] Phone Number [facility] DEPARTMENT OF PATHOLOGY AND [address] [place] [phone] [place] [phone] Lactic acid level (10/08/2018 12:30 PM CDT)Only the most recent of2 resultswithin the time period is included. Lactic acid 0.8 0.5 - 2.2 mmol/L [facility] Specimen Blood Performing Organization Address City/[facility]/Zipcode Phone Number [facility] DEPARTMENT OF PATHOLOGY AND [address] [place] [phone] [address] [address] Head Wo Contrast (10/08/2018 11:25 AM CDT) Narrative Performed At EXAMINATION: CT HEAD WO CONTRAST [facility] CLINICAL HISTORY: Altered level of consciousness (LOC)unexplained COMPARISON:None TECHNIQUE: Noncontrast CT of the brain was performed from the skull base to the vertex. Both soft tissue and bone reconstruction algorithms are interpreted. CT imaging was performed with iterative reconstruction techniques and/or automated exposure control to reduce radiation dose. FINDINGS: No intracranial hemorrhage, extra-axial collection, or mass-effect is seen.No acute cortical infarct is identified. No hyperdense vessel is seen. No air-fluid level is seen in the visualized portions of the paranasal sinuses. Mastoid air cells are clear. IMPRESSION: No acute intracranial abnormality identified. No significant interval appreciated. [id number] Procedure Note Interface, Radiology Results Incoming - 10/08/2018 11:31 AM CDT EXAMINATION: CT HEAD WO CONTRAST CLINICAL HISTORY: Altered level of consciousness (LOC) unexplained COMPARISON: None TECHNIQUE: Noncontrast CT of the brain was performed from the skull base to the vertex. Both soft tissue and bone reconstruction algorithms are interpreted. CT imaging was performed with iterative reconstruction techniques and/or automated exposure control to reduce radiation dose. FINDINGS: No intracranial hemorrhage, extra-axial collection, or mass-effect is seen. No acute cortical infarct is identified. No hyperdense vessel is seen. No air-fluid level is seen in the visualized portions of the paranasal sinuses. Mastoid air cells are clear. IMPRESSION: No acute intracranial abnormality identified. No significant interval appreciated. [id number] Performing Organization Address City/State/Zipcode Phone Number [facility] [address] [place] [address] CT Chest Wo Contrast (10/08/2018 11:25 AM CDT) Narrative Performed At EXAMINATION:CT CHEST WO CONTRAST [facility] CLINICAL HISTORY:Shortness of breath, shortness of breath COMPARISON:10/30/2017 TECHNIQUE:CT of the chest without intravenous contrast. Absence of contrast decreases sensitivity for detection of focal lesions and vascular pathology. CT imaging was performed with iterative reconstruction techniques and/or automated exposure control to reduce radiation dose. FINDINGS: LUNGS and PLEURA:There is a large left-sided pleural effusion considerably increased in size when compared to prior. No right pleural effusion. There is consolidation filling the left lower lobe and to a lesser extent the lingula adjacent to the effusion. Mild atelectatic changes on the right. No central airway abnormality. HEART and MEDIASTINUM:Thoracic aorta is nonaneurysmal. Main pulmonary artery is slightly prominent measuring 3.6 cm. There is a left IJ dialysis catheter which travels down the left moiety of a duplicated SVC terminating at the cavoatrial junction. Heart size is mildly prominent. Evaluation for adenopathy is limited without contrast. There are some subcentimeter mediastinal lymph nodes. ABDOMEN:Limited unenhanced views of the upper abdomen are unremarkable. BONES and SOFT TISSUES:Degenerative changes in the spine. IMPRESSION: 1.Large left-sided pleural effusion, considerably increased from 10/30/2017. 2.Consolidation filling the left lower lobe and to a lesser extent the lingula, probably compressive atelectasis. Component of pneumonia not entirely excluded in the left lower lobe. 3.Dilation of the main pulmonary artery can be seen in pulmonary hypertension. Clinical correlation. 4.Additional findings as above. [facility]-[id number] Procedure Note [facility], Radiology Results Incoming - 10/08/2018 12:06 PM CDT EXAMINATION: CT CHEST WO CONTRAST CLINICAL HISTORY: Shortness of breath, shortness of breath COMPARISON: 10/30/2017 TECHNIQUE: CT of the chest without intravenous contrast. Absence of contrast decreases sensitivity for detection of focal lesions and vascular pathology. CT imaging was performed with iterative reconstruction techniques and/or automated exposure control to reduce radiation dose. FINDINGS: LUNGS and PLEURA: There is a large left-sided pleural effusion considerably increased in size when compared to prior. No right pleural effusion. There is consolidation filling the left lower lobe and to a lesser extent the lingula adjacent to the effusion. Mild atelectatic changes on the right. No central airway abnormality. HEART and MEDIASTINUM: Thoracic aorta is nonaneurysmal. Main pulmonary artery is slightly prominent measuring 3.6 cm. There is a left IJ dialysis catheter which travels down the left moiety of a duplicated SVC terminating at the cavoatrial junction. Heart size is mildly prominent. Evaluation for adenopathy is limited without contrast. There are some subcentimeter mediastinal lymph nodes. ABDOMEN: Limited unenhanced views of the upper abdomen are unremarkable. BONES and SOFT TISSUES: Degenerative changes in the spine. IMPRESSION: 1. Large left-sided pleural effusion, considerably increased from 10/30/2017. 2. Consolidation filling the left lower lobe and to a lesser extent the lingula, probably compressive atelectasis. Component of pneumonia not entirely excluded in the left lower lobe. 3. Dilation of the main pulmonary artery can be seen in pulmonary hypertension. Clinical correlation. 4. Additional findings as above. [facility]-[id number] Performing Organization Address City/[facility]/Zipcode Phone Number [facility] [address] [place] [address] Cytology (non-gynecological) request (10/08/2018 7:49 AM CDT) [facility] DEPARTMENT OF PATHOLOGY AND GENOMIC MEDICINE Cytology See link below for PDF [facility] DEPARTMENT OF (non-gynecological) report Lab Report PATHOLOGY AND GENOMIC MEDICINE Result status This is Final Report [facility] DEPARTMENT OF for [id number] PATHOLOGY AND GENOMIC MEDICINE Performing Organization Address [facility] Phone Number [facility] DEPARTMENT OF PATHOLOGY AND [address] [place] [address] GENOMIC MEDICINE Echocardiogram complete w contrast and 3D if needed (10/07/2018 10:04 AM CDT) Narrative Performed At [facility] Echocardiography Report [address] [place] [address] Pat.Name:FANNIE DELACRUZ Pat.ID:[id number] .Date: 10/07/2018Refer.MD:PREETI WILL MD Exam Time: 8:14:00 AMStudy Type:Routine Echo Height:64inWeight: 225lb BSA: 2.06 m2 DOBAge:1960,58Y Sex: FEMALEBP:89/49 HR:81 bpm Sonogrphr: STEPHENIE Kessler Pat. Stat.:Inpatient Room:[facility] Study Status:Final Echo Event ID:[id number] Order ID:[id number] Reason for Study:SOB History / Clinical:Pulmonary Hypertension, Congestive Heart Failure, Hyperlipidemia, Hypertension, CKD (Stage lll), Pulmonary Thromboembolism Procedures:2D Echo, Colorflow Doppler Race:C SUMMARY: LV size is normal. LV EF is normal. FINDINGS: LV: LV size is normal. LV EF is normal. Overall wall motion is normal.Estimated EF is 60-64%. RV: RV size is normal. RV systolic function is normal. LA: LA volume is mildly enlarged. RA: RA volume is normal. AO: Aortic root diameter is normal in size. LORA: There is an anterior space consistent with a prominent epicardialfat pad. PLE:Pleural effusion is present. PA: Pulmonary artery diameter is enlarged (3.7 cm). AV: No structural AV abnormalities noted. MV: No structural MV abnormalities noted. PV: No structural PV abnormalities noted. TV: No structural TV abnormalities noted. A trace of tricuspid regurgitation Almanza: Hepatic vein pressure is normal, RA pressure < 5mmHg. Diastolicdysfunction Grade I (Mild): Impaired relaxation withnormal LV filling pressures. Other:Insufficient TR jet to estimate PA systolic pressure. MEASUREMENTS: 2D Parasternal [place] LVOT 2.2 cmAo An2.1 cm LA Ds4.8 cmAo Rtd 3 cm Index1.4 cm/m Left Ventricle LVIDd5 cm (3.6-5.2) Index2.4 cm/m LA Sng Plane LA Area 26.1 cm2(8.8-23.4) LA Vol74.4 ml Index36.1 ml/m LA LngAx 7.7 cm Signed 10/07/2018 12:50 PM Dario Morales MD Procedure Note Interface, Radiology Results In - 10/07/2018 12:51 PM CDT Echocardiography Report [address] [address] Pat.Name: FANNIE DELACRUZ Pat.ID: [id number] .Date: 10/07/2018 Refer.MD: PREETI WILL MD Exam Time: 8:14:00 AM Study Type:Routine Echo Height: 64in Weight: 225lb BSA: 2.06 m2 Age: 10 1960,58Y Sex: FEMALE BP: 89/49 HR: 81 bpm Sonogrphr: Liliane Corado [facility] Pat. Stat.:Inpatient Room: [facility] Study Status:Final Echo Event ID:[id number] Order ID: [id number] Reason for Study:SOB History / Clinical:Pulmonary Hypertension, Congestive Heart Failure, Hyperlipidemia, Hypertension, CKD (Stage lll), Pulmonary Thromboembolism Procedures:2D Echo, Colorflow Doppler Race: C SUMMARY: LV size is normal. LV EF is normal. FINDINGS: LV: LV size is normal. LV EF is normal. Overall wall motion is normal. Estimated EF is 60-64%. RV: RV size is normal. RV systolic function is normal. LA: LA volume is mildly enlarged. RA: RA volume is normal. AO: Aortic root diameter is normal in size. LORA: There is an anterior space consistent with a prominent epicardial fat pad. PLE: Pleural effusion is present. PA: Pulmonary artery diameter is enlarged (3.7 cm). AV: No structural AV abnormalities noted. MV: No structural MV abnormalities noted. PV: No structural PV abnormalities noted. TV: No structural TV abnormalities noted. A trace of tricuspid regurgitation Almanza: Hepatic vein pressure is normal, RA pressure < 5mmHg. Diastolic dysfunction Grade I (Mild): Impaired relaxation with normal LV filling pressures. Other: Insufficient TR jet to estimate PA systolic pressure. MEASUREMENTS: 2D Parasternal [place] LVOT 2.2 cm Ao An 2.1 cm LA Ds 4.8 cm Ao Rtd 3 cm Index 1.4 cm/m Left Ventricle LVIDd 5 cm (3.6-5.2) Index 2.4 cm/m LA Sng Plane LA Area 26.1 cm2 (8.8-23.4) LA Vol 74.4 ml Index 36.1 ml/m LA LngAx 7.7 cm Signed 10/07/2018 12:50 PM Dario Morales MD Performing Organization Address [facility] Phone Number [facility] [address] [place] [address] Hepatitis B surface antigen (10/06/2018 2:30 PM CDT) Hepatitis B surface Ag Non-reactive Non-reactive [facility] Specimen Blood Performing Organization Address [facility] Phone Number [facility] DEPARTMENT OF PATHOLOGY AND [address] [place] [phone] Prothrombin time with INR (10/06/2018 2:30 PM CDT)Only the most recent of3 resultswithin the time period is included. Prothrombin time 14.5 11.5 - 14.5 sec [facility] INR 1.2 [facility] Comment: HOSPITAL The International Normalized Ratio (INR) is a therapeutic monitoring tool for patients who are stable on oral anticoagulant therapy. An INR of 2.0-3.0 is suggested for deep vein thrombosis/pulmonary embolism. Specimen Blood Performing Organization Address [facility] Phone Number [facility] DEPARTMENT OF PATHOLOGY AND [address] [place] [address] Comprehensive metabolic panel (10/06/2018 2:30 PM CDT) Sodium 143 135 - 148 mEq/L [facility] Potassium 4.5 3.5 - 5.0 mEq/L [facility] Chloride 101 98 - 112 mEq/L [facility] CO2 28 24 - 31 mEq/L [facility] Anion gap 14@ANIO 7 - 15 mEq/L [facility] BUN 61 (H) 8 - 23 mg/dL [facility] Creatinine 3.36 (H) 0.50 - 0.90 mg/dL [facility] Glucose 116 (H) 65 - 99 mg/dL [facility] Calcium 9.1 8.8 - 10.2 mg/dL [facility] Protein 6.3 6.3 - 8.3 g/dL [facility] Comment: HOSPITAL [place] 4.6-7.0 g/dL 1 week 4.4-7.6 g/dL 7 months-1year5.1-7.3 g/dL 1-2 years5.6-7.5 g/dL >3 years6.0-8.0 g/dL 18-150 6.3-8.3 g/dL Albumin 2.4 (L) 3.5 - 5.0 g/dL [facility] A/G ratio 0.6 (L) 0.7 - 3.8 [facility] Alkaline phosphatase 69 35 - 104 U/L [facility] AST 13 10 - 35 U/L [facility] ALT 7 5 - 50 U/L [facility] Total bilirubin <0.2 0.0 - 1.2 mg/dL [facility] Specimen Plasma specimen Performing Organization Address City/State/Zipcode Phone Number [facility] DEPARTMENT OF PATHOLOGY AND [address] [place] [phone] GENOMIC MEDICINE [address] [address] ECG 12 lead (10/05/2018 9:44 PM CDT)Only the most recent of2 resultswithin the time period is included. Ventricular rate 88 [facility] Atrial rate 88 [facility] PA interval 140 [facility] QRSD interval 88 [facility] QT interval 358 [facility] QTC interval 433 [facility] P axis 1 52 [facility] QRS axis 1 67 [facility] T wave axis 79 [facility]USE EKG impression Normal sinus rhythm-Normal ECG-In automated [facility] MUSE comparison with ECG of 23-NOV-2017 14:52,-No significant change was found- Narrative Performed At Performing Organization Address City/[facility] Phone Number [facility] MUSE [address] [place] [address] Manual differential (12/06/2017 10:47 AM CDT)Only the most recent of2 resultswithin the time period is included. Manual differential PERFORMED [facility] DEPARTMENT OF PATHOLOGY AND GENOMIC MEDICINE Neutrophils 66.0 39.0 - 69.0 % [facility] DEPARTMENT OF PATHOLOGY AND GENOMIC MEDICINE Lymphocytes 14.0 (L) 25.0 - 45.0 % [facility] DEPARTMENT OF PATHOLOGY AND GENOMIC MEDICINE Monocytes 6.0 0.0 - 10.0 % [facility] DEPARTMENT OF PATHOLOGY AND GENOMIC MEDICINE Eosinophils 7.0 (H) 0.0 - 5.0 % [facility] DEPARTMENT OF PATHOLOGY AND GENOMIC MEDICINE Basophils 1.0 0.0 - 1.0 % [facility] DEPARTMENT OF PATHOLOGY AND GENOMIC MEDICINE Metamyelocytes 1 % [facility] DEPARTMENT OF PATHOLOGY AND GENOMIC MEDICINE Myelocytes 5 % [facility] DEPARTMENT OF PATHOLOGY AND GENOMIC MEDICINE Promyelocytes 0 % [facility] DEPARTMENT OF PATHOLOGY AND GENOMIC MEDICINE Platelet slide review Mary Ellen adequate [facility] DEPARTMENT OF PATHOLOGY AND GENOMIC MEDICINE Anisocytosis Moderate [facility] DEPARTMENT OF PATHOLOGY AND GENOMIC MEDICINE Polychromasia Moderate [facility] DEPARTMENT OF PATHOLOGY AND GENOMIC MEDICINE Basophilic stippling Occasional [facility] DEPARTMENT OF PATHOLOGY AND GENOMIC MEDICINE Ovalocytes Moderate [facility] DEPARTMENT OF PATHOLOGY AND GENOMIC MEDICINE Performing Organization Address [facility] Phone Number [facility] DEPARTMENT OF PATHOLOGY AND [address] [place] [address] [facility] Potassium level (12/06/2017 10:47 AM CDT) Potassium 4.3 3.5 - 5.0 mEq/L [facility] DEPARTMENT OF PATHOLOGY AND GENOMIC MEDICINE Specimen Plasma specimen Performing Organization Address City/[facility] Phone Number [facility] DEPARTMENT OF PATHOLOGY AND [address] [place] [phone] [facility] Estimated GFR (12/06/2017 4:00 AM CDT)Only the most recent of15 resultswithin the time period is included. GFR Non Af Amer 25 (A) mL/min/1.73 m2 [facility] DEPARTMENT OF PATHOLOGY AND GENOMIC MEDICINE GFR Af Amer 31 (A) mL/min/1.73 m2 [facility] DEPARTMENT OF Comment: PATHOLOGY AND GENOMIC Chronic kidney disease: <60 mL/min/1.73m2 MEDICINE Kidney failure: <15 mL/min/1.73m2 The estimated GFR is calculated from the IDMS-traceable Modification of Diet in Renal Disease Equation. The accuracy of the calculation is poor when the creatinine is normal. Calculated values >90 mL/min/1.73m2 are not reported. This equation has not been validated in children (<18 years), women, the elderly (>70 years), or ethnic groups other than Caucasians and Americans. Specimen Plasma specimen Performing Organization Address City/State/Zipcode Phone Number [facility] DEPARTMENT OF PATHOLOGY AND [address] [place] [address] [facility] Gastrointestinal panel (12/04/2017 9:48 AM CDT) Gastrointestinal panel Negative for all pathogens tested: [facility] DEPARTMENT OF Negative for Salmonella PATHOLOGY AND GENOMIC Negative for Campylobacter MEDICINE Negative for Diarrheagenic E coli/Shigella Negative for [...] Specimen Source: Stool Specimen Site: Nonpreserved Specimen Stool - Nonpreserved Performing Organization Address City/State/Zipcode Phone Number [facility] DEPARTMENT OF PATHOLOGY AND [address] [place] [address] [facility] Partial thromboplastin time, activated (11/28/2017 4:00 AM CDT)Only the most recent of2 resultswithin the time period is included. PTT 28.1 23.0 - 36.0 sec [facility] DEPARTMENT OF PATHOLOGY Comment: AND GENOMIC MEDICINE PTT therapeutic range for unfractionated heparin is 61.0-112.0 seconds which corresponds to Anti-Xa 0.3-0.7 U/ml. Specimen Blood Performing Organization Address City/[facility] Phone Number [facility] DEPARTMENT OF PATHOLOGY AND [address] [place] [phone] [employer] [facility] Valproic acid level (11/28/2017 4:00 AM CDT)Only the most recent of2 resultswithin the time period is included. Valproic acid 34.7 (L) 50.0 - 100.0 ug/mL [facility] DEPARTMENT OF PATHOLOGY AND Comment: GENOMIC MEDICINE Therapeutic Range: 50 - 100 ug/mL Specimen Plasma specimen Performing Organization Address City/[facility]/Zipcode Phone Number [facility] DEPARTMENT OF PATHOLOGY AND [address] [place] [phone] [employer] MEDICINE XR Abdomen 2 Vw Ap W Upright And/Or Decubitus (11/25/2017 10:12 AM CDT) Addenda Addendum by Mark Herman MD on 11/28/2017 5:37 PM ADDENDUM #1 The above findings were discussed with Dr. Luz Escobar on 11/28/2017 at approximately 5:00 PM. Please note that the legs extend into both iliac veins which will significantly complicate any potential retrieval. Narrative Performed At EXAM: [facility] XR ABDOMEN 2 VW AP W UPRIGHT AND OR DECUBITUS INDICATION: Bowel obstruction COMPARISON: Abdomen AP dated 11/23/2017. IMPRESSION: Minimal gas distention multiple loops small and large bowel scattered throughout the abdomen pattern is nonspecific and nonobstructive. No evidence of pneumatosis, portal venous gas, pneumoperitoneum. Otherwise unchanged. Enteric tube with tip projecting over distal gastric antrum/first portion of the duodenum. Retrievable inferior vena cava filter, relatively low-lying with tip projecting along the right lateral aspect of L4 vertebral body. Prior CT demonstrates that this inferior vena cava filter extends into the bilateral iliac veins. Retrieval/replacement should be considered. Surgical material right lower quadrant. Hyperdense renal shadows bilaterally. Minimal right convex curvature lumbar spine. Moderate degenerative changes visualized thoracolumbar spine. These findings were emailed to the ordering provider. [id number] Procedure Note Hm Interface, Radiology Results Incoming - 11/25/2017 10:26 AM CDT EXAM: XR ABDOMEN 2 VW AP W UPRIGHT AND OR DECUBITUS INDICATION: Bowel obstruction COMPARISON: Abdomen AP dated 11/23/2017. IMPRESSION: Minimal gas distention multiple loops small and large bowel scattered throughout the abdomen pattern is nonspecific and nonobstructive. No evidence of pneumatosis, portal venous gas, pneumoperitoneum. Otherwise unchanged. Enteric tube with tip projecting over distal gastric antrum/first portion of the duodenum. Retrievable inferior vena cava filter, relatively low-lying with tip projecting along the right lateral aspect of L4 vertebral body. Prior CT demonstrates that this inferior vena cava filter extends into the bilateral iliac veins. Retrieval/replacement should be considered. Surgical material right lower quadrant. Hyperdense renal shadows bilaterally. Minimal right convex curvature lumbar spine. Moderate degenerative changes visualized thoracolumbar spine. These findings were emailed to the ordering provider. [id number] Performing Organization Address City/[facility]/[place] [address] Sodium level, urine, random (11/24/2017 10:55 AM CDT) Sodium, urine, random 30 mEq/L [facility] DEPARTMENT OF PATHOLOGY AND GENOMIC MEDICINE Specimen Urine Performing Organization Address [facility]ode Phone Number [facility] DEPARTMENT OF PATHOLOGY AND [address] [place] [address] Creatinine level, urine, random (11/24/2017 10:55 AM CDT) Creatinine, urine, random 133 mg/dL [facility] DEPARTMENT OF PATHOLOGY AND GENOMIC MEDICINE Specimen Urine Performing Organization Address [facility] Centercode Phone Number [facility] DEPARTMENT OF PATHOLOGY AND [address] [place] [address] GENOMIC MEDICINE Urinalysis, automated with microscopy (11/24/2017 10:55 AM CDT) Color, UA Yudi [facility] DEPARTMENT OF PATHOLOGY AND GENOMIC MEDICINE Appearance, UA Clear [facility] DEPARTMENT OF PATHOLOGY AND GENOMIC MEDICINE Specific gravity, UA 1.024 1.001 - 1.035 [facility] DEPARTMENT OF PATHOLOGY AND GENOMIC MEDICINE pH, UA 5.0 5.0 - 8.5 [facility] DEPARTMENT OF PATHOLOGY AND GENOMIC MEDICINE Protein, UA Negative Negative [facility] DEPARTMENT OF PATHOLOGY AND GENOMIC MEDICINE Glucose, UA Negative Negative [facility] DEPARTMENT OF PATHOLOGY AND GENOMIC MEDICINE Ketones, UA Negative Negative [facility] DEPARTMENT OF PATHOLOGY AND GENOMIC MEDICINE Bilirubin, UA Negative Negative [facility] DEPARTMENT OF PATHOLOGY AND GENOMIC MEDICINE Blood, UA Negative Negative [facility] DEPARTMENT OF PATHOLOGY AND GENOMIC MEDICINE Nitrite, UA Negative Negative [facility] DEPARTMENT OF PATHOLOGY AND GENOMIC MEDICINE Urobilinogen, UA <2.0 <2.0 [facility] DEPARTMENT OF PATHOLOGY AND GENOMIC MEDICINE Leukocyte esterase, UA Moderate (A) Negative [facility] DEPARTMENT OF PATHOLOGY AND GENOMIC MEDICINE Epithelial cells, UA 3 /HPF [facility] DEPARTMENT OF PATHOLOGY AND GENOMIC MEDICINE Round epithelial cells, UA 4 (H) 0 - 1 /HPF [facility] DEPARTMENT OF PATHOLOGY AND GENOMIC MEDICINE WBC, UA 67 (H) 0 - 4 /HPF [facility] DEPARTMENT OF PATHOLOGY AND GENOMIC MEDICINE RBC, UA 1 0 - 5 /HPF [facility] DEPARTMENT OF PATHOLOGY AND GENOMIC MEDICINE Bacteria, UA Few None seen [facility] DEPARTMENT OF PATHOLOGY AND GENOMIC MEDICINE Yeast, UA None seen [facility] DEPARTMENT OF PATHOLOGY AND GENOMIC MEDICINE Yeast with pseudohyphae, UA None seen [facility] DEPARTMENT OF PATHOLOGY AND GENOMIC MEDICINE Specimen Urine Performing Organization Address City/[facility] Phone Number [facility] DEPARTMENT OF PATHOLOGY AND [address] XR Abdomen 1 Vw Portable (11/23/2017 5:00 PM CDT) Narrative Performed At EXAMINATION:XR ABDOMEN 1 VW PORTABLE [facility]IANT CLINICAL HISTORY:Bowel obstruction, ng placement positon COMPARISON:10/02/2017 FINDINGS: XR ABDOMEN 1 VW PORTABLE images are submitted. The nasogastric tube extends into the stomach. Minimal bowel gas is present. Surgical clips are seen within the right abdomen. Residual contrast is present within the bladder. Mild degenerative changes are seen within the lumbar spine. IMPRESSION: 1. The nasogastric tube extends into the stomach. [facility]-[id number] Procedure Note Interface, Radiology Results Incoming - 11/23/2017 5:05 PM CDT EXAMINATION: XR ABDOMEN 1 VW PORTABLE CLINICAL HISTORY: Bowel obstruction, ng placement positon COMPARISON: 10/02/2017 FINDINGS: XR ABDOMEN 1 VW PORTABLE images are submitted. The nasogastric tube extends into the stomach. Minimal bowel gas is present. Surgical clips are seen within the right abdomen. Residual contrast is present within the bladder. Mild degenerative changes are seen within the lumbar spine. IMPRESSION: 1. The nasogastric tube extends into the stomach. [facility]-[id number] Performing Organization Address City/[facility]/Zipcode Phone Number [facility] [address] [place] [phone] Prealbumin level (11/23/2017 2:46 PM CDT) Prealbumin 21 16 - 32 mg/dL [facility] DEPARTMENT OF PATHOLOGY AND GENOMIC MEDICINE Specimen Serum Performing Organization Address [facility]ercode Phone Number [facility] DEPARTMENT OF PATHOLOGY AND [address] [place] [phone] [facility] B natriuretic peptide (11/23/2017 2:46 PM CDT) BNP 77 0 - 100 pg/mL [facility] DEPARTMENT OF PATHOLOGY AND GENOMIC MEDICINE Specimen Blood Performing Organization Address [facility] Centercode Phone Number [facility] DEPARTMENT OF PATHOLOGY AND [address] [place] [phone] [facility] Lipase level (11/23/2017 2:46 PM CDT) Lipase 47 13 - 60 U/L [facility] DEPARTMENT OF PATHOLOGY AND GENOMIC MEDICINE Specimen Plasma specimen Performing Organization Address [facility] Phone Number [facility] DEPARTMENT OF PATHOLOGY AND [address] [place], [place] [phone] [facility] Hemoglobin A1c (11/23/2017 2:46 PM CDT) Hemoglobin A1C 4.9 4.0 - 5.6 % [facility] DEPARTMENT OF PATHOLOGY Comment: AND GENOMIC MEDICINE HbA1c cutoffs for diagnosing diabetes: 4.0% - 5.6%=normal 5.7% - 6.4%=increased risk for diabetes (prediabetes) >=6.5%=diabetes Goals for glycemic control (ADA 2016) < 7.0%Target for non adults with diabetes. More or less stringent targets may be appropriate for individual patients. <7.5% Target for Children and adolescents with type 1 diabetes. Specimen Blood Performing Organization Address [facility]ode Phone Number [facility] DEPARTMENT OF PATHOLOGY AND [address] [place] [phone] [facility] Hepatic function panel (11/23/2017 2:46 PM CDT) Albumin 2.8 (L) 3.5 - 5.0 g/dL [facility] DEPARTMENT OF PATHOLOGY AND GENOMIC MEDICINE Total bilirubin 0.3 0.0 - 1.2 mg/dL [facility] DEPARTMENT OF PATHOLOGY AND GENOMIC MEDICINE Bilirubin direct <0.2 0.0 - 0.3 mg/dL [facility] DEPARTMENT OF PATHOLOGY AND GENOMIC MEDICINE Alkaline phosphatase 41 35 - 104 U/L [facility] DEPARTMENT OF PATHOLOGY AND GENOMIC MEDICINE Protein 6.8 6.3 - 8.3 g/dL [facility] DEPARTMENT OF Comment: PATHOLOGY AND GENOMIC 4.6-7.0 g/dL MEDICINE 1 week 4.4-7.6 g/dL 7 months-1year5.1-7.3 g/dL 1-2 years5.6-7.5 g/dL >3 years6.0-8.0 g/dL 18-150 6.3-8.3 g/dL ALT 11 5 - 50 U/L [facility] DEPARTMENT OF PATHOLOGY AND GENOMIC MEDICINE AST 35 10 - 35 U/L [facility] DEPARTMENT OF PATHOLOGY AND GENOMIC MEDICINE Specimen Plasma specimen Performing Organization Address City/State/Zipcode Phone Number [facility] DEPARTMENT OF PATHOLOGY AND [address] [place] [address] [facility] after 11/07/2017 Insurance Payer Benefit Plan / Group Subscriber ID Type Phone Address AETNA AETNA HMO,POS,EPO, MC/EC xxxxxxxxxx HMO Advance Directives Patient has advance care planning documents on file. For more information, please contact:Margarito Arambula[address] [place] [address]
--- OUTSIDE RECORDS SUMMARY | 2018-11-08 21:28 | XMS REPORT | Clinical Summary ---
:1960 Author Organization [facility] Address [address] [place] [address] Care Team Providers Name Role Phone Michael [...] Signs Not on file Plan of Treatment Not on file Results Not on fileafter 11/07/2017 Insurance Payer Benefit Plan / Group Subscriber ID Type Phone Address AETNA - [facility] AETNA HMO POS QPOS xxxxxxxxx HMO/POS
--- NOTE | 2018-11-08 22:32 | RAD REPORT ---
EXAM DESCRIPTION: RAD - Chest Single View - 11/08/2018 10:22 pm CLINICAL HISTORY: COUGH Chest pain. COMPARISON: Chest Single View dated 09/12/2018; Chest Single View dated 09/11/2018; Chest Single View dated 09/10/2018; Chest Single View dated 09/10/2018 FINDINGS: Portable technique limits examination quality. Mild interstitial pulmonary edema seen. Small left pleural effusion is present. The heart is moderate ly prominent in size.
[2018-11-08] MEDS ORDERED: NA CHLORIDE 0.9% 500 ML ONE (23:22)
[2018-11-08] MEDS ORDERED: NA CHLORIDE 0.9% 1,000 ML ONE (23:22)
[2018-11-08 23:48] LABS: Absolute Lymphocytes (CBC) 0.6 K/uL (0.7-4.9); Absolute Monocytes 0.7 K/uL (0.1-1.3); Absolute Neutrophil 2.7 K/uL (1.8-8.0); Basophils % 0.2 % (0-1.3); Eosinophils % 0.5 % (0-4.4); Hematocrit 29.6 % (36.0-45.0); Lymphocytes % 14.2 % (15.3-44.8); MPV 7.8 fL (7.6-11.3); Monocytes % 18.2 % (3.3-12.3); RBC Red Blood Cell Count 3.15 M/uL (3.86-4.86)
[2018-11-09 00:05] LABS: Protime INR 1.13
[2018-11-09 00:27] LABS: ALT/SGPT 8 U/L (12-78); AST/SGOT 11 U/L (15-37); Albumin 2.6 g/dL (3.4-5.0); Alkaline Phosphatase 73 U/L (45-117); BUN Blood Urea Nitrogen 34 mg/dL (7-18); Bicarbonate 26 mmol/L (21-32); Bilirubin Direct 0.2 mg/dL (0-0.2); Bilirubin Total 0.4 mg/dL (0.2-1.0); Glucose Level 99 mg/dL (74-106); Lipase 167 U/L (73-393); NT PRO-BNP 4145 pg/mL (<125); Potassium 4.1 mmol/L (3.5-5.1); Protein, Total 6.2 g/dL (6.4-8.2); Sodium Level 137 mmol/L (136-145); Troponin (Emerg Dept Use Only) < 0.02 ng/mL (0.0-0.045)
[2018-11-09] MEDS ORDERED: LIDOCAINE JELLY 2%- 5 ML TUBE ONE (00:30)
[2018-11-09 00:50] LABS: Urine Blood 3+ (NEG); Urine Glucose NEGATIVE (NEG); Urine Protein 3+ (NEG)
--- NOTE | 2018-11-09 01:15 | ER ---
Nurse's Notes [facility] Name: Fannie Plunkett Age: 58 yrs Sex: Female : 1960 Arrival Date: 11/08/2018 Time: 21:25 Bed 27 Private MD: Diagnosis: Hypotension;End stage renal disease;Pleural effusion in conditions classified elsewhere;Cystitis;Anemia, unspecified Presentation: 11/08 21:28 Presenting complaint: Patient states: I am on dialysis and I am having low blood ed1 pressure. Transition of care: patient was not received from another setting of care. Onset of symptoms was November 08, 2018. Risk Assessment: Do you want to hurt yourself or someone else? Patient reports no desire to harm self or others. Initial Sepsis Screen: Does the patient meet any 2 criteria? No. Patient's initial sepsis screen is negative. Does the patient have a suspected source of infection? No. Patient's initial sepsis screen is negative. Care prior to arrival: None. 21:28 Method Of Arrival: Wheelchair ed1 21:28 Acuity: MODESTA 2 ed1 Triage Assessment: 21:28 General: Appears in no apparent distress. Behavior is calm, cooperative. Pain: Denies ed1 pain. Historical: - Allergies: 21:56 Codeine; ed1 21:56 Morphine; ed1 21:56 NSAIDS; ed1 21:56 Tape; ed1 - Home Meds: 21:56 Adcirca 20 mg Oral tab 2 tabs nightly [Active]; allopurinol 100 mg Oral tab 1 tab ed1 nightly [Active]; aspirin 81 mg Oral TbEC 1 tab once daily [Active]; Atrovent 0.06 % Nasal spry 2 sprays 3 times per day [Active]; Bystolic 20 mg Oral tab 1 tab once daily [Active]; calcium carbonate 600 mg (1,500 mg) Oral tab 2 tab daily [Active]; Crestor 40 mg Oral tab 1 tab nightly [Active]; Depakote 500 mg Oral TbEC 1 tab (1 tab in am \T\ 2 tabs in pm) [Active]; Detrol LA 4 mg Oral cp24 1 cap nightly [Active]; Klonopin 0.5 mg Oral tab 1 tab nightly [Active]; Lasix 20 mg Oral tab 1 tab as needed [Active]; levothyroxine 100 mcg tab 1 tab once daily [Active]; Lunesta 3 mg Oral tab 1 tab once daily [Active]; Nexium 40 mg Oral cpDR 1 cap once daily [Active]; Patanase 0.6 % nasal spry 2 sprays 2 times per day [Active]; Restasis 0.05 % ophthalmic dpet 1 drop 2 times per day [Active]; Robaxin 750 mg Oral tab 2 tabs as needed [Active]; tramadol 50 mg Oral tab as needed [Active]; Vascepa 1 gram Oral cap 2 caps 2 times per day [Active]; Vitamin C 500 mg Oral tab 500 mg daily [Active]; Vitamin D3 2,000 unit Oral tab daily [Active]; Zyrtec 10 mg Oral tab 1 tab once daily [Active]; Nexabiotic [Active]; multivitamin with minerals oral oral [Active]; Sinupro [Active]; - PMHx: 21:56 Anemia; Arthritis; bowel obstruction; Depression; GERD; Hyperlipidemia; Hypertension; ed1 Hypothyroidism; ibs; lymphedema; PAH; Renal Disease; Sleep Apnea; Pulmonary Hypertension; - PSHx: 21:56 fistula on R arm; Hysterectomy; IVC filter; Joint replacement; Hernia repair; ed1 - Immunization history:: Adult Immunizations up to date. - Social history:: Smoking status: Patient/guardian denies using tobacco. - Ebola Screening: : Patient negative for fever greater than or equal to 101.5 degrees Fahrenheit, and additional compatible Ebola Virus Disease symptoms Patient denies exposure to infectious person Patient denies travel to an Ebola-affected area in the 21 days before illness onset No symptoms or risks identified at this time. Screenin:40 Abuse screen: Denies threats or abuse. Denies injuries from another. Nutritional ca1 screening: No deficits noted. 21:40 Tuberculosis screening: No symptoms or risk factors identified. Fall Risk Ambulatory ca1 Aid- Crutches/Cane/Walker (15 pts). Gait- Weak (10 pts.). Assessment: 21:40 General: Appears in no apparent distress. comfortable, Behavior is calm, cooperative, ca1 appropriate for age, Reports blood pressure is low at home. Had dialysis today and took blood pressure meds around 1800. Pain: Denies pain. Neuro: Level of Consciousness is awake, alert, obeys commands, Oriented to person, place, time, situation. Cardiovascular: Heart tones S1 S2 present Capillary refill < 3 seconds Patient's skin is warm and dry. Respiratory: Airway is patent Respiratory effort is even, unlabored, Respiratory pattern is regular, symmetrical. GI: Abdomen is round non-distended, Bowel sounds present X 4 quads. Abd is soft and non tender X 4 quads. : No signs and/or symptoms were reported regarding the genitourinary system. EENT: Reports difficulty hearing more with the low blood pressure which happened before. Derm: Skin is intact, is healthy with good turgor, Skin is pink, warm \T\ dry. Musculoskeletal: Circulation, motion, and sensation intact. Capillary refill < 3 seconds. 22:47 Reassessment: Pt to CT scan. ca1 22:55 Reassessment: Patient appears in no apparent distress at this time. Patient is alert, ca1 oriented x 3, equal unlabored respirations, skin warm/dry/pink. 23:50 Reassessment: Patient appears in no apparent distress at this time. Patient and/or ca1 family updated on plan of care and expected duration. Pain level reassessed. Patient is alert, oriented x 3, equal unlabored respirations, skin warm/dry/pink. 11/09 00:40 Reassessment: Pt requested Lidocaine Jelly for Straight Cath. Notified Dr. Figueroa and ca1 said yes. Straight Cath done. Urine output 40ml. Sent specimen to lab. Pt tolerated well. Vital Signs: 11/08 21:28 BP 98 / 51; Pulse 83; Resp 18; Temp 98.1; Pulse Ox 95% on 2 lpm NC; Weight 98.88 kg; ed1 Height 5 ft. 4 in. (162.56 cm); Pain 0/10; 21:52 BP 82 / 49; Pulse 83; Resp 18 S; Temp 98(O); Pulse Ox 100% on R/A; ca1 23:32 BP 83 / 47; Pulse 81; Resp 17 S; Temp 98(O); Pulse Ox 100% on R/A; ca1 23:45 BP 95 / 55; Pulse 80; Resp 17 S; Temp 98(O); Pulse Ox 100% on R/A; ca1 11/09 00:01 BP 86 / 54; Pulse 81; Resp 16 S; Temp 98(O); Pulse Ox 100% on R/A; ca1 00:30 BP 86 / 58; Pulse 79; Resp 18 S; Temp 98(O); Pulse Ox 100% on R/A; ca1 00:45 BP 79 / 47; Pulse 77; Resp 17 S; Temp 98(O); Pulse Ox 100% on R/A; ca1 01:05 BP 73 / 42; Pulse 75; Resp 14; Pulse Ox 100% ; rv 02:18 BP 81 / 46; Pulse 80; Resp 16; Temp 97.8; Pulse Ox 99% 2 lpm ; rv 11/08 21:28 Body Mass Index 37.42 (98.88 kg, 162.56 cm) ed1 ED Course: 11/08 21:25 Patient arrived in ED. ed1 21:28 Arm band placed on left wrist. ed1 21:29 Triage completed. ed1 21:40 Patient has correct armband on for positive identification. Placed in gown. Bed in low ca1 position. Call light in reach. Side rails up X2. braid cutter on. Pulse ox on. NIBP on. Warm blanket given. 21:40 Missed attempt(s): 22 gauge in left antecubital area. ca1 21:51 Joe Figueroa MD is Attending Physician. essie 22:[address] via stretcher. vm2 22:22 XRAY Chest (1 view) In Process Unspecified. EDMS 22:23 Kassy Moss, MARC is Primary Nurse. ca1 23:05 CT Chest Abdomen Pelvis W/O Contrast: no iv no oral In Process Unspecified. EDMS 23:30 Inserted 18 gauge 10 cm midline to left upper basilic vein on second attempt. Line with fc good blood return and flushes well. 05 00:40 Straight cath inserted, using sterile technique, 16 Fr. Specimen obtained. Returned ca1 cloudy urine. Patient tolerated well. 01:09 Michael Villegas MD is Hospitalizing Provider. essie 02:18 No provider procedures requiring assistance completed. Patient admitted, IV remains in rv place. Administered Medications: 11/08 23:30 Drug: NS 0.9% 500 ml Route: IV; Rate: bolus; Site: left upper arm; ca1 11/09 00:15 Follow up: IV Status: Completed infusion ca1 00:15 Drug: NS 0.9% 1000 ml Route: IV; Rate: 75 ml/hr; Site: left upper arm; ca1 02:20 Follow up: IV Status: Infusion continued upon admission rv 01:30 Drug: NS 0.9% 250 ml Route: IV; Rate: bolus; Site: left antecubital; rv 02:21 Follow up: IV Status: Completed infusion rv 01:30 Drug: Cefepime 1 grams Route: IVPB; Rate: 200 ml/hr; Infused Over: 30 mins; Site: left rv antecubital; 02:21 Follow up: IV Status: Completed infusion rv 01:30 Drug: Pepcid 20 mg Route: IVP; Site: left antecubital; rv 02:19 Follow up: Response: No adverse reaction rv 02:00 Drug: Dopamine drip 5 mcg/kg/min - (DOPamine 400 mg, D5W 250 ml) Route: IV; Rate: rv calculated rate; Site: left upper arm; 02:21 Follow up: IV Status: Infusion continued upon admission rv 02:00 Drug: vancoMYCIN 1 grams Route: IVPB; Infused Over: 2 hrs; Site: left upper arm; rv 02:22 Follow up: IV Status: Infusion continued upon admission rv Outcome: 01:14 Decision to Hospitalize by Provider. essie 02:18 Admitted to ICU accompanied by nurse, accompanied by tech, family with patient, via rv stretcher, room 6, with oxygen, on monitor, with chart, Report called to SARIAH TRAN 02:18 Condition: good 02:18 Instructed on the need for admit. 02:41 Patient left the ED. lt1 Signatures: Dispatcher [employer] Joe Holder MD MD cha Chretien, Felicia, RN Megan Bhakta RN RN ed1 Reba Nguyen Walt Sneed RN RN Kassy Moss RN RN ca1 Tran, Leah lt1
--- NOTE | 2018-11-09 01:15 | EDPHYS ---
Physician Documentation [facility] Name: Fannie Plunkett Age: 58 yrs Sex: Female : 1960 Arrival Date: 11/08/2018 Time: 21:25 Bed 27 Private MD: DREW Physician Joe Figueroa HPI: 11/08 22:00 This 58 yrs old Female presents to ER via Wheelchair with complaints of Low essie Blood Pressure. 22:00 weak , low blood pressure. Onset: The symptoms/episode began/occurred today. Severity essie of symptoms: At their worst the symptoms were mild in the emergency department the symptoms are unchanged. The patient has not experienced similar symptoms in the past. Historical: - Allergies: 21:56 Codeine; ed1 21:56 Morphine; ed1 21:56 NSAIDS; ed1 21:56 Tape; ed1 - Home Meds: 21:56 Adcirca 20 mg Oral tab 2 tabs nightly [Active]; allopurinol 100 mg Oral tab 1 tab ed1 nightly [Active]; aspirin 81 mg Oral TbEC 1 tab once daily [Active]; Atrovent 0.06 % Nasal spry 2 sprays 3 times per day [Active]; Bystolic 20 mg Oral tab 1 tab once daily [Active]; calcium carbonate 600 mg (1,500 mg) Oral tab 2 tab daily [Active]; Crestor 40 mg Oral tab 1 tab nightly [Active]; Depakote 500 mg Oral TbEC 1 tab (1 tab in am \T\ 2 tabs in pm) [Active]; Detrol LA 4 mg Oral cp24 1 cap nightly [Active]; Klonopin 0.5 mg Oral tab 1 tab nightly [Active]; Lasix 20 mg Oral tab 1 tab as needed [Active]; levothyroxine 100 mcg tab 1 tab once daily [Active]; Lunesta 3 mg Oral tab 1 tab once daily [Active]; Nexium 40 mg Oral cpDR 1 cap once daily [Active]; Patanase 0.6 % nasal spry 2 sprays 2 times per day [Active]; Restasis 0.05 % ophthalmic dpet 1 drop 2 times per day [Active]; Robaxin 750 mg Oral tab 2 tabs as needed [Active]; tramadol 50 mg Oral tab as needed [Active]; Vascepa 1 gram Oral cap 2 caps 2 times per day [Active]; Vitamin C 500 mg Oral tab 500 mg daily [Active]; Vitamin D3 2,000 unit Oral tab daily [Active]; Zyrtec 10 mg Oral tab 1 tab once daily [Active]; Nexabiotic [Active]; multivitamin with minerals oral oral [Active]; Sinupro [Active]; - PMHx: 21:56 Anemia; Arthritis; bowel obstruction; Depression; GERD; Hyperlipidemia; Hypertension; ed1 Hypothyroidism; ibs; lymphedema; PAH; Renal Disease; Sleep Apnea; Pulmonary Hypertension; - PSHx: 21:56 fistula on R arm; Hysterectomy; IVC filter; Joint replacement; Hernia repair; ed1 - Immunization history:: Adult Immunizations up to date. - Social history:: Smoking status: Patient/guardian denies using tobacco. - Ebola Screening: : Patient negative for fever greater than or equal to 101.5 degrees Fahrenheit, and additional compatible Ebola Virus Disease symptoms Patient denies exposure to infectious person Patient denies travel to an Ebola-affected area in the 21 days before illness onset No symptoms or risks identified at this time. ROS: 22:01 Constitutional: Negative for fever, chills, and weight loss, Eyes: Negative for injury, essie pain, redness, and discharge, ENT: Negative for injury, pain, and discharge, Neck: Negative for injury, pain, and swelling, Cardiovascular: Negative for chest pain, palpitations, and edema, Respiratory: Negative for shortness of breath, cough, wheezing, and pleuritic chest pain, Abdomen/GI: Negative for abdominal pain, nausea, vomiting, diarrhea, and constipation, Back: Negative for injury and pain, : Negative for injury, bleeding, discharge, and swelling, MS/Extremity: Negative for injury and deformity, Skin: Negative for injury, rash, and discoloration, Psych: Negative for depression, anxiety, suicide ideation, homicidal ideation, and hallucinations, Allergy/Immunology: Negative for hives, rash, and allergies, Endocrine: Negative for neck swelling, polydipsia, polyuria, polyphagia, and marked weight changes, Hematologic/Lymphatic: Negative for swollen nodes, abnormal bleeding, and unusual bruising. 22:01 Neuro: Positive for weakness. Exam: 22:01 Constitutional: This is a well developed, well nourished patient who is awake, alert, essie and in no acute distress. Head/Face: Normocephalic, atraumatic. Eyes: Pupils equal round and reactive to light, extra-ocular motions intact. Lids and lashes normal. Conjunctiva and sclera are non-icteric and not injected. Cornea within normal limits. Periorbital areas with no swelling, redness, or edema. ENT: Nares patent. No nasal discharge, no septal abnormalities noted. Tympanic membranes are normal and external auditory canals are clear. Oropharynx with no redness, swelling, or masses, exudates, or evidence of obstruction, uvula midline. Mucous membranes moist. Neck: Trachea midline, no thyromegaly or masses palpated, and no cervical lymphadenopathy. Supple, full range of motion without nuchal rigidity, or vertebral point tenderness. No Meningismus. Chest/axilla: Normal chest wall appearance and motion. Nontender with no deformity. No lesions are appreciated. Cardiovascular: Regular rate and rhythm with a normal S1 and S2. No gallops, murmurs, or rubs. Normal PMI, no JVD. No pulse deficits. Respiratory: Lungs have equal breath sounds bilaterally, clear to auscultation and percussion. No rales, rhonchi or wheezes noted. No increased work of breathing, no retractions or nasal flaring. Back: No spinal tenderness. No costovertebral tenderness. Full range of motion. Female : Normal external genitalia. Skin: Warm, dry with normal turgor. Normal color with no rashes, no lesions, and no evidence of cellulitis. MS/ Extremity: Pulses equal, no cyanosis. Neurovascular intact. Full, normal range of motion. Neuro: Awake and alert, GCS 15, oriented to person, place, time, and situation. Cranial nerves II-XII grossly intact. Motor strength 5/5 in all extremities. Sensory grossly intact. Cerebellar exam normal. Normal gait. Psych: Awake, alert, with orientation to person, place and time. Behavior, mood, and affect are within normal limits. 22:01 Abdomen/GI: Inspection: distension, Bowel sounds: normal, Palpation: mild abdominal tenderness, in all quadrants, Liver: no appreciated palpable abnormalities, Hernia: not appreciated. Vital Signs: 21:28 BP 98 / 51; Pulse 83; Resp 18; Temp 98.1; Pulse Ox 95% on 2 lpm NC; Weight 98.88 kg; ed1 Height 5 ft. 4 in. (162.56 cm); Pain 0/10; 21:52 BP 82 / 49; Pulse 83; Resp 18 S; Temp 98(O); Pulse Ox 100% on R/A; ca1 23:32 BP 83 / 47; Pulse 81; Resp 17 S; Temp 98(O); Pulse Ox 100% on R/A; ca1 23:45 BP 95 / 55; Pulse 80; Resp 17 S; Temp 98(O); Pulse Ox 100% on R/A; ca1 05 00:01 BP 86 / 54; Pulse 81; Resp 16 S; Temp 98(O); Pulse Ox 100% on R/A; ca1 00:30 BP 86 / 58; Pulse 79; Resp 18 S; Temp 98(O); Pulse Ox 100% on R/A; ca1 00:45 BP 79 / 47; Pulse 77; Resp 17 S; Temp 98(O); Pulse Ox 100% on R/A; ca1 01:05 BP 73 / 42; Pulse 75; Resp 14; Pulse Ox 100% ; rv 02:18 BP 81 / 46; Pulse 80; Resp 16; Temp 97.8; Pulse Ox 99% 2 lpm ; rv 11/08 21:28 Body Mass Index 37.42 (98.88 kg, 162.56 cm) ed1 MDM: 11/08 21:51 Patient medically screened. [facility] 22:02 Data reviewed: vital signs, nurses notes, lab test result(s), EKG, radiologic studies, [facility] CT scan, plain films. 11/08 21:59 Order name: Basic Metabolic Panel [facility] 11/08 21:59 Order name: CBC with Diff [facility] 11/08 21:59 Order name: LFT's [facility] 11/08 21:59 Order name: Magnesium [facility] 11/08 21:59 Order name: NT PRO-BNP [facility] 11/08 21:59 Order name: PT-INR; Complete Time: 01:05 [facility] 11/08 21:59 Order name: Troponin (emerg Dept Use Only); Complete Time: 01:05 [facility] 11/08 21:59 Order name: Lipase; Complete Time: 01:05 [facility] 11/08 21:59 Order name: Blood Culture Adult (2) [facility] 11/08 21:59 Order name: Procalcitonin; Complete Time: 01:05 [facility] 11/08 21:59 Order name: Urine Culture [facility] 11/08 21:59 Order name: Basic Metabolic Panel; Complete Time: 01:05 [facility] 11/08 21:59 Order name: CBC with Automated Diff; Complete Time: 01:05 [facility] 11/08 21:59 Order name: Liver (Hepatic) Function; Complete Time: 01:05 [facility] 11/08 21:59 Order name: XRAY Chest (1 view); Complete Time: 01:05 [facility] 11/08 21:59 Order name: EKG; Complete Time: 22:01 [facility] 11/08 21:59 Order name: Cardiac monitoring; Complete Time: 22:42 [facility] 11/08 21:59 Order name: CT Chest Abdomen Pelvis W/O Contrast: no iv no oral [facility] 11/08 21:59 Order name: Magnesium; Complete Time: 01:05 [facility] 11/08 22:00 Order name: NT PRO-BNP; Complete Time: 01:05 [facility] 11/08 22:03 Order name: Type And Screen; Complete Time: 01:05 [facility] 11/09 00:41 Order name: Urine Dipstick--Ancillary (enter results); Complete Time: 01:05 [facility] 11/09 01:19 Order name: CONS Physician Consult [facility] 11/08 21:59 Order name: EKG - Nurse/Tech; Complete Time: 22:42 [facility] 11/08 21:59 Order name: IV Saline Lock; Complete Time: 23:58 [facility] 11/08 21:59 Order name: Labs collected and sent; Complete Time: 23:58 [facility] 11/08 21:59 Order name: O2 Per Protocol; Complete Time: 22:42 [facility] 11/08 21:59 Order name: O2 Sat Monitoring; Complete Time: 22:42 [facility] 11/08 21:59 Order name: Urine Dipstick-Ancillary (obtain specimen); Complete Time: 00:40 [facility] Administered Medications: 23:30 Drug: NS 0.9% 500 ml Route: IV; Rate: bolus; Site: left upper arm; ca1 05 00:15 Follow up: IV Status: Completed infusion ca1 00:15 Drug: NS 0.9% 1000 ml Route: IV; Rate: 75 ml/hr; Site: left upper arm; ca1 02:20 Follow up: IV Status: Infusion continued upon admission rv 01:30 Drug: NS 0.9% 250 ml Route: IV; Rate: bolus; Site: left antecubital; rv 02:21 Follow up: IV Status: Completed infusion rv 01:30 Drug: Cefepime 1 grams Route: IVPB; Rate: 200 ml/hr; Infused Over: 30 mins; Site: left rv antecubital; 02:21 Follow up: IV Status: Completed infusion rv 01:30 Drug: Pepcid 20 mg Route: IVP; Site: left antecubital; rv 02:19 Follow up: Response: No adverse reaction rv 02:00 Drug: Dopamine drip 5 mcg/kg/min - (DOPamine 400 mg, D5W 250 ml) Route: IV; Rate: rv calculated rate; Site: left upper arm; 02:21 Follow up: IV Status: Infusion continued upon admission rv 02:00 Drug: vancoMYCIN 1 grams Route: IVPB; Infused Over: 2 hrs; Site: left upper arm; rv 02:22 Follow up: IV Status: Infusion continued upon admission rv Disposition: 11/09/18 01:14 Hospitalization ordered by Michael Villegas for Inpatient Admission. Preliminary diagnosis are Hypotension, End stage renal disease, Pleural effusion in conditions classified elsewhere, Cystitis, Anemia, unspecified. - Bed requested for Intensive Care Unit. - Status is Inpatient Admission. lt1 - Condition is Stable. - Problem is new. - Symptoms have improved. UTI on Admission? Yes Signatures: Dispatcher [employer] EDMS Lyly Barrera RN Joe Brown MD MD cha Riggs, Erika, RN RN ed1 Walt Edmond RN RN rv Acob, Cheryl RN MARC [address] lt Corrections: (The following items were deleted from the chart) 01:35 01:14 Hospitalization Ordered by Michael Villegas MD for Inpatient Admission. Preliminary mi diagnosis is Hypotension; End stage renal disease; Pleural effusion in conditions classified elsewhere; Cystitis; Anemia, unspecified. Bed requested for Intensive Care Unit. Status is Inpatient Admission. Condition is Stable. Problem is new. Symptoms have improved. UTI on Admission? Yes. essie 02:41 01:35 11/09/2018 01:14 Hospitalization Ordered by Michael Villegas MD for Inpatient lt1 Admission. Preliminary diagnosis is Hypotension; End stage renal disease; Pleural effusion in conditions classified elsewhere; Cystitis; Anemia, unspecified. Bed requested for Intensive Care Unit. Status is Inpatient Admission. Condition is Stable. Problem is new. Symptoms have improved. UTI on Admission? Yes. mw
[2018-11-09] MEDS ORDERED: NA CHLORIDE 0.9% 250 ML ONE (01:34)
[2018-11-09] MEDS ORDERED: VANCOMYCIN 1 GM/VIAL ONE (01:34)
[2018-11-09] MEDS ORDERED: DOPAMINE/D5W 400 MG/250 ML BAG IV ONE (01:34)
[2018-11-09] MEDS ORDERED: CEFEPIME 1 GM/100 ML BAG IV ONE (01:35)
[2018-11-09] MEDS ORDERED: FAMOTIDINE 20 MG/2 ML VIAL IV ONE (01:36)
[2018-11-09] MEDS: ONDANSETRON 4 MG/2 ML VIAL IV PRN (03:00)
--- NOTE | 2018-11-09 07:12 | EKG ---
Test Date: 2018-11-08 Test Time: 22:32:43 Public Address System Mechanic: [place] MEASUREMENT RESULTS: Intervals: Rate: 83 [place]: 144 QRSD: 102 QT: 382 QTc: 448 [place]: P: 38 [place]: 144 QRS: 17 T: 48 INTERPRETIVE STATEMENTS: Normal sinus rhythm Minimal voltage criteria for LVH, may be normal variant Borderline ECG Compared to ECG 09/08/2018 17:41:32 Left ventricular hypertrophy now present Electronically Signed On 11-09-18 07:11:15 CDT by Talon Ariza
[2018-11-09] MEDS: DOPAMINE/D5W 400 MG/250 ML BAG IV PRN ×3 (07:57→22:29)
[2018-11-09 08:38] LABS: Absolute Lymphocytes (CBC) 0.5 K/uL (0.7-4.9); Absolute Monocytes 1.2 K/uL (0.1-1.3); Absolute Neutrophil 2.7 K/uL (1.8-8.0); Basophils % 0.5 % (0-1.3); Eosinophils % 0.9 % (0-4.4); Hematocrit 31.5 % (36.0-45.0); Lymphocytes % 11.6 % (15.3-44.8); MPV 7.9 fL (7.6-11.3); Monocytes % 25.9 % (3.3-12.3); RBC Red Blood Cell Count 3.38 M/uL (3.86-4.86)
[2018-11-09] MEDS: FAMOTIDINE 20 MG/2 ML VIAL IV SCH ×2 (08:57→22:00)
[2018-11-09] MEDS: ASPIRIN EC 81 MG TAB PO SCH (09:00)
[2018-11-09] MEDS ORDERED: FAMOTIDINE 20 MG/2 ML VIAL IV SCH (09:00)
[2018-11-09] MEDS ORDERED: CEFEPIME 1 GM/VIAL IV SCH ×2 (09:00→21:00)
[2018-11-09 10:37] LABS: Albumin 2.6 g/dL (3.4-5.0); Bilirubin Total 0.4 mg/dL (0.2-1.0); Phosphorus 5.2 mg/dL (2.5-4.9); Potassium 4.3 mmol/L (3.5-5.1); Protein, Total 6.4 g/dL (6.4-8.2)
[2018-11-09 11:09] LABS: Anisocytosis 1+; Blood Morphology Comment NOTED (NOT SEEN); Platelet Estimate DECR; Urine White Blood Cell Casts OK
--- NOTE | 2018-11-09 11:36 | P.CNS ---
Date of Consult: 11/09/18 Reason for Consult: ESRD and electrolytes management Chief Complaint: low BP History of Present Illness: A 58-year-old female, with past medical history of ESRd on home HD TTsat via lt IJ catheter , hypertension; hypothyroidism; hyperlipidemia; pulmonary hypertension; obstructive sleep apnea and bipolar disorder bipolar pt presented to ER for low BP reading Pt completed HD yesterday with less than 1 liter removal pt took home BP after HD, noticed low BP reading no chest , fever or chills CXR; mild pul edema , Allergies codeine [Codeine] Allergy (Mild, Verified 09/03/18 03:33) Itching morphine Adverse Reaction (Severe, Verified 09/03/18 03:33) Decreased blood pressure NSAIDS (Non-Steroidal Anti-Inflamma Adverse Reaction (Intermediate, Verified 10/19 03:33) kidney insufficiency Tape Allergy (Uncoded 07/05/18 10:37) Unknown Home Medications: Adcirca 20mg 2 tab PO BEDTIME 09/03/18 Allopurinol [Zyloprim*] 100 mg PO BEDTIME 09/03/18 Ascorbic Acid [Vitamin C] 500 mg PO DAILY 09/03/18 Aspirin [Aspir-Low] 81 mg PO DAILY 09/03/18 Calcium Carbonate [Calcium] 2 tab PO DAILY 09/03/18 Cholecalciferol (Vitamin D3) [Vitamin D3] 2,000 unit PO DAILY 09/03/18 Cyclosporine [Restasis] 1 drop EACH EYE BID 09/03/18 Divalproex Sodium [Depakote] 1,000 mg PO BEDTIME 09/03/18 Divalproex Sodium [Depakote] 500 mg PO DAILY 09/03/18 Esomeprazole Mag Trihydrate [Nexium] 40 mg PO DAILY 09/03/18 Icosapent Ethyl [Vascepa] 2 cap PO BID 09/03/18 Ipratropium [Atrovent 0.03% (21MCG)/[place] Nasal*] 2 sprays NS TID 09/03/18 Levothyroxine Sodium 100 mcg PO DAILY 09/03/18 Loratadine [Claritin*] 10 mg PO BEDTIME 09/03/18 Multivitamin [Multivitamins] 1 each PO BEDTIME 09/03/18 Nebivolol HCl [Bystolic*] 40 mg PO DAILY 09/03/18 Olopatadine HCl [Patanase] 2 spray NS BID 09/03/18 Rosuvastatin Calcium [Crestor] 40 mg PO BEDTIME 09/03/18 Tolterodine Tartrate [Detrol LA*] 4 mg PO BEDTIME 09/03/18 Tramadol HCl [Ultram] 50 mg PO Q8H PRN 09/03/18 Eszopiclone 3 mg PO BEDTIME 11/09/18 - Past Medical/Surgical History Diabetic: No -: sleep apnea -: IBS/GERD -: Hypothyroidism -: ANEMIA -: Pulmonary HTN -: back pain/ pinch nerves -: CKD, seasonal allergies -: HTN -: DVT -: hypertriglyceridemia -: hyperlipidemia -: lymphedema -: Hysterectomy -: Hernia repair -: Knee SX -: colon resection -: back Sx, Sciatica -: cyst removed from forehead x2 -: breast biopsy x2 -: fistula PAULINA - Family History Mother Medical History: Hypertension, Blood disorders - Social History Smoking Status: Unknown if ever smoked Alcohol use: No CD- Drugs: No Caffeine use: Yes Place of Residence: Home Physical Examination Temp Pulse Resp BP Pulse Ox 97.8 F 80 12 100/47 L 98 11/09/18 02:18 11/09/18 06:30 11/09/18 06:30 11/09/18 06:30 11/09/18 06:30 General: Alert, In no apparent distress HEENT: Atraumatic Neck: Supple, Without JVD or thyroid abnormality Respiratory: Clear to auscultation bilaterally, Normal air movement Cardiovascular: No edema, Regular rate/rhythm, Normal S1 S2 Gastrointestinal: Normal bowel sounds, Soft and benign Integumentary: No rashes Laboratory Data (last 24 hrs) 11/08/18 23:29: PT 13.3 H, INR 1.13 11/08/18 23:29: WBC 4.0 L, Hgb 9.9 L, Hct 29.6 L, Plt Count 115 L 11/08/18 23:29: Sodium 137, Potassium 4.1, BUN 34 H, Creatinine 5.50 H*, Glucose 99, Magnesium 2.0, Total Bilirubin 0.4, AST 11 L, ALT 8 L, Alkaline Phosphatase 73, Lipase 167 - Problems (1) ESRD (end stage renal disease) on dialysis Current Visit: Yes Status: Chronic Conclusions/Impression: ESRD on HD TTsat at home HD tomorrow renal diet renal dose meds Shock possible septic F/u culture results received 750 IVF with no improvement in BP on dopamine drip BP meds on hold trop WNL Cont Abx anemia will start NOVA
--- NOTE | 2018-11-09 13:02 | RAD REPORT ---
EXAM DESCRIPTION: CT Chest Without Intravenous Contrast CT Abdomen and Pelvis Without Intravenous Contrast CLINICAL HISTORY: The patient is 58 years old and is Female; Abdominal distention;Cough;Dyspnea TECHNIQUE: Axial computed tomography images of the chest, abdomen and pelvis without intravenous con trast. Sagittal and coronal reformatted images were created and reviewed. This CT exam was perfor med using one or more of the following dose reduction techniques: automated exposure control, adjus tment of the mA and/or kV according to patient size, and/or use of iterative reconstruction technique . COMPARISON: No relevant prior studies available. FINDINGS: CHEST: LUNGS: Compressive atelectasis within the left lower lobe is noted. Linear atelectasis/scarring within the right lung is present. PLEURAL SPACE: A small/moderate left pleural effusion is present. No pneumothorax. HEART: No cardiomegaly. No pericardial effusion. ABDOMEN: LIVER: Homogeneous without focal mass. GALLBLADDER AND BILE DUCTS: The gallbladder is surgically absent. PANCREAS: The pancreas is atrophic. No ductal dilation. SPLEEN: Unremarkable. ADRENALS: Unremarkable. No mass. KIDNEYS AND URETERS: Innumerable bilateral renal cysts are present throughout the kidneys. The l argest measures approximately 2.9 cm. A few bilateral parenchymal renal calcifications are present. T here is no hydronephrosis or hydroureter of either kidney. STOMACH AND BOWEL: Evidence of a prior right hemicolectomy is noted. A moderate amount of stool is noted throughout the remainder of the colon. Minimal food contents distending the stomach. The sma ll bowel is normal in caliber. There is no bowel obstruction. PELVIS: APPENDIX: The appendix is surgically absent. BLADDER: The bladder is nearly empty. Mild surrounding inflammatory stranding is present. No s tones. REPRODUCTIVE: The patient is status post hysterectomy. CHEST, ABDOMEN and PELVIS: INTRAPERITONEAL SPACE: Unremarkable. No significant fluid collection. No free air. BONES/JOINTS: Scoliotic curvature of the spine is present. Multilevel degenerative changes spine is noted. SOFT TISSUES: The soft tissues are normal. VASCULATURE: An infrarenal IVC filter is present. Atherosclerosis of the vasculature is present. Evidence of bilateral SVC's are present. The left Vas-Cath is noted within the left-sided SVC. N o aortic aneurysm. LYMPH NODES: Unremarkable. No enlarged lymph nodes. IMPRESSION: 1. Moderate left pleural effusion with associated compressive atelectasis. 2. Mild bladder wall thickening with surrounding inflammatory stranding which may be secondary to c ystitis. 3. Lobular contour to the kidneys with innumerable renal cysts. Electronically signed by: Jenae Rodriguez MD 11/08/2018 11:14 PM CDT Due to temporary technical issues with the PACS/Fluency reporting system, reports are being signed by the in house radiologist as a courtesy to ensure prompt reporting. The interpreting radiologist is f ully responsible for the content of the report.
[2018-11-09] MEDS ORDERED: VANCOMYCIN/NS 1 gm 1 GM/250 ML BAG IV SCH (13:15)
--- NOTE | 2018-11-09 15:20 | P.HP ---
Certification for Inpatient Patient admitted to: Inpatient With expected LOS: >2 Midnights Practitioner: I am a practitioner with admitting privileges, knowledge of patient current condition, hospital course, and medical plan of care. Services: Services provided to patient in accordance with Admission requirements found in Title 42 Section 412.3 of the Code of Federal Regulations Patient History Date of Service: 11/09/18 Reason for admission: low BP History of Present Illness: CARMINE IS A HEMODIALYSIS PATIENT WHO HAS RENAL FAILURE FROM USE OF LITHIUM FOR BIPOLAR DISEASE. SHE ALSO HAS HTN, SEVERE PULMONARY HTN, SEVERE OBESITY, BACK PAIN ETC. SHE AFTER HD YESTERDAY CAME HOME TOOK BP PILLS AND BP DROPPED TOO LOW DOWN TO 70 SYSTOLIC. SHE HAS NO FEVER, CHILLS, NAUSEA, VOMITING OR BURNING IN URINATION. SHE HAS NO COUGH OR CHEST PAIN. Allergies codeine [Codeine] Allergy (Mild, Verified 09/03/18 03:33) Itching morphine Adverse Reaction (Severe, Verified 09/03/18 03:33) Decreased blood pressure NSAIDS (Non-Steroidal Anti-Inflamma Adverse Reaction (Intermediate, Verified 10/19 03:33) kidney insufficiency Tape Allergy (Uncoded 07/05/18 10:37) Unknown Home Medications: Adcirca 20mg 2 tab PO BEDTIME 09/03/18 Allopurinol [Zyloprim*] 100 mg PO BEDTIME 09/03/18 Ascorbic Acid [Vitamin C] 500 mg PO DAILY 09/03/18 Aspirin [Aspir-Low] 81 mg PO DAILY 09/03/18 Calcium Carbonate [Calcium] 2 tab PO DAILY 09/03/18 Cholecalciferol (Vitamin D3) [Vitamin D3] 2,000 unit PO DAILY 09/03/18 Cyclosporine [Restasis] 1 drop EACH EYE BID 09/03/18 Divalproex Sodium [Depakote] 1,000 mg PO BEDTIME 09/03/18 Divalproex Sodium [Depakote] 500 mg PO DAILY 09/03/18 Esomeprazole Mag Trihydrate [Nexium] 40 mg PO DAILY 09/03/18 Icosapent Ethyl [Vascepa] 2 cap PO BID 09/03/18 Ipratropium [Atrovent 0.03% (21MCG)/[place] Nasal*] 2 sprays NS TID 09/03/18 Levothyroxine Sodium 100 mcg PO DAILY 09/03/18 Loratadine [Claritin*] 10 mg PO BEDTIME 09/03/18 Multivitamin [Multivitamins] 1 each PO BEDTIME 09/03/18 Nebivolol HCl [Bystolic*] 40 mg PO DAILY 09/03/18 Olopatadine HCl [Patanase] 2 spray NS BID 09/03/18 Rosuvastatin Calcium [Crestor] 40 mg PO BEDTIME 09/03/18 Tolterodine Tartrate [Detrol LA*] 4 mg PO BEDTIME 09/03/18 Tramadol HCl [Ultram] 50 mg PO Q8H PRN 09/03/18 Eszopiclone 3 mg PO BEDTIME 11/09/18 - Past Medical/Surgical History Has patient received pneumonia vaccine in the past: Yes Diabetic: No -: sleep apnea -: IBS/GERD -: Hypothyroidism -: ANEMIA -: Pulmonary HTN -: back pain/ pinch nerves -: CKD, seasonal allergies -: HTN -: DVT -: hypertriglyceridemia -: hyperlipidemia -: lymphedema -: Hysterectomy -: Hernia repair -: Knee SX -: colon resection -: back Sx, Sciatica -: cyst removed from forehead x2 -: breast biopsy x2 -: fistula PAULINA - Family History Mother -: Hypertension, Blood disorders - Social History Smoking Status: Never smoker Alcohol use: No CD- Drugs: No Caffeine use: Yes Place of Residence: Home Review of Systems 10-point ROS is otherwise unremarkable General: Weakness, Malaise Physical Examination - Vital Signs Temperature: 97.8 F Blood Pressure: 111/60 Pulse: 80 Respirations: 17 Pulse Ox (%): 99 - Physical Exam General: Alert (SLUGGISH IN APPROPRIATE RESPONSES.), Mild distress, Obese HEENT: Atraumatic, PERRLA, Mucous membr. moist/pink, EOMI, Sclerae nonicteric Neck: Supple, 2+ carotid pulse no bruit, No LAD, Without JVD or thyroid abnormality Respiratory: Diminished, Other ( L SIDE CHEST WALL HAS HD CATHETER. NO TENDERNESS AROUND THE CATHETER BASE.) Cardiovascular: Regular rate/rhythm, Normal S1 S2, Other (R ARM AV SHUNT IS NOT READY FOR HD USE YET.) Gastrointestinal: Normal bowel sounds, No tenderness Musculoskeletal: No tenderness Integumentary: No rashes Neurological: Normal gait, Normal speech, Normal strength at 5/5 x4 extr, Normal tone, Normal affect Lymphatics: No axilla or inguinal lymphadenopathy - Studies Laboratory Data (last 24 hrs) 11/08/18 23:29: PT 13.3 H, INR 1.13 11/08/18 23:29: WBC 4.0 L, Hgb 9.9 L, Hct 29.6 L, Plt Count 115 L 11/08/18 23:29: Sodium 137, Potassium 4.1, BUN 34 H, Creatinine 5.50 H*, Glucose 99, Magnesium 2.0, Total Bilirubin 0.4, AST 11 L, ALT 8 L, Alkaline Phosphatase 73, Lipase 167 Assessment and Plan - Problems (Diagnosis) (1) Septic shock Current Visit: Yes Status: Acute Plan: UTI SEEMS POSSIBLE CAUSE. SHE HAD ST. CATH SPECIMEN. URINE AND BLOOD CULTURES ARE PENDING. AGREE WITH CEFEPIME IV MAY NOT NEED VANCOMYCIN FOR LONG. (2) ESRD (end stage renal disease) on dialysis Current Visit: Yes Status: Chronic Plan: HD MANAGED BY RENAL DOCTORS. (3) Delirium Current Visit: No Status: Acute Plan: RELATED TO SEPTIC SHOCK. IV FLUIDS PER RENAL MD IV ABX. CHECK ABG RA IF NOT DONE. (4) Pulmonary HTN Onset Date: 11/23/17 Current Visit: No Status: Chronic - Advance Directives Does patient have a Living Will: No Does patient have a Durable POA for Healthcare: No
[2018-11-09] MEDS ORDERED: TRAMADOL HCL 50 MG TAB PO PRN (15:23)
[2018-11-09] MEDS ORDERED: HOME MED 1 EA UNK (Eszopiclone [Eszopiclone] 3 MG) PO SCH (21:00)
[2018-11-09] MEDS ORDERED: IPRATROPIUM NS SCH (21:00)
[2018-11-09] MEDS ORDERED: HOME MED 1 EA UNK (Rosuvastatin Calcium [Crestor] 40 MG) PO SCH (21:00)
[2018-11-09] MEDS ORDERED: MANNITOL 25% 12.5 GM/50 ML VIAL IV PRN (21:40)
[2018-11-09] MEDS ORDERED: HEPARIN 10000 UNIT/ML IV PRN (21:40)
[2018-11-09] MEDS ORDERED: NA CHLORIDE 0.9% 1,000 ML IV PRN (21:40)
[2018-11-09] MEDS: ROSUVASTATIN 10 MG TAB PO SCH (21:59)
[2018-11-09] MEDS: DIVALPROEX DR 500MG TAB PO SCH (21:59)
[2018-11-09] MEDS: CEFEPIME/SWI 1gm 10 ML IV SCH (21:59)
[2018-11-09] MEDS ORDERED: ALBUMIN HUMAN 25% 50 ML IV SCH (22:00)
[2018-11-10 05:23] LABS: Absolute Lymphocytes (CBC) 0.7 K/uL (0.7-4.9); Absolute Monocytes 0.9 K/uL (0.1-1.3); Absolute Neutrophil 2.2 K/uL (1.8-8.0); Basophils % 0.4 % (0-1.3); Eosinophils % 1.1 % (0-4.4); Hematocrit 29.4 % (36.0-45.0); Lymphocytes % 18.5 % (15.3-44.8); MPV 7.9 fL (7.6-11.3); RBC Red Blood Cell Count 3.17 M/uL (3.86-4.86)
[2018-11-10 05:24] LABS: Monocytes % 23.7 % (3.3-12.3)
[2018-11-10] MEDS: LEVOTHYROXINE SOD 0.1 MG TAB PO SCH (05:39)
[2018-11-10] MEDS: ACETAMINOPHEN 500 MG TAB PO PRN ×2 (05:41→21:17)
[2018-11-10 06:02] LABS: Potassium 4.5 mmol/L (3.5-5.1)
[2018-11-10] MEDS ORDERED: Pharmacy Consult 1 EA XX SCH (08:00)
[2018-11-10] MEDS: DOPAMINE/D5W 400 MG/250 ML BAG IV PRN ×2 (09:12→15:39)
[2018-11-10] MEDS: FAMOTIDINE 20 MG/2 ML VIAL IV SCH ×2 (10:34→20:21)
[2018-11-10] MEDS: DIVALPROEX DR 500MG TAB PO SCH ×2 (10:35→20:21)
[2018-11-10] MEDS: ASPIRIN EC 81 MG TAB PO SCH (10:35)
[2018-11-10] MEDS: ONDANSETRON 4 MG/2 ML VIAL IV PRN (10:39)
--- NOTE | 2018-11-10 10:58 | RAD REPORT ---
EXAM DESCRIPTION: RAD - Chest Single View - 11/10/2018 6:34 am CLINICAL HISTORY: Chest Pain Chest pain. COMPARISON: Chest Single View dated 11/08/2018; Chest Single View dated 09/12/2018; Chest Single View d ated 09/11/2018; Chest Single View dated 09/10/2018 FINDINGS: Portable technique limits examination quality. Left pleural effusion with atelectasis in the left lung base noted, mildly progressive since comparat vasile study. The heart is moderately enlarged in size. Moderate thoracic levoscoliosis. Left-sided veno us catheter is unchanged. IMPRESSION: Mild worsening in left base lung aeration since comparative study.
[2018-11-10] MEDS: EPOETIN ALFA 10,000 UNIT/ML VIAL SQ SCH (11:09)
--- NOTE | 2018-11-10 11:14 | P.PN ---
Subjective Date of Service: 11/10/18 Chief Complaint: low BP Subjective: Improving SHE FEELS BETTER, STILL SLOW TO RESPOND IN THOUGHTS. SHE HAS NO PAIN, NO DYSPNEA, NO FEVER Review of Systems 10-point ROS is otherwise unremarkable General: Weakness, Malaise Physical Examination - Vital Signs Temperature: 97.7 F Blood Pressure: 90/45 Pulse: 82 Respirations: 12 Pulse Ox (%): 99 - Physical Exam General: Alert, Oriented x2, Obese HEENT: Atraumatic, PERRLA, EOMI Neck: Supple, JVD not distended Respiratory: Clear to auscultation bilaterally, Normal air movement Cardiovascular: Regular rate/rhythm, Normal S1 S2 Gastrointestinal: Normal bowel sounds, No tenderness Musculoskeletal: No tenderness Integumentary: No rashes Neurological: Abnormal speech (SLOW IN RESPONSE, NO FOCAL DEFICITS) Lymphatics: No axilla or inguinal lymphadenopathy - Studies Medications List Reviewed: Yes Assessment And Plan - Current Problems (Diagnosis) (1) Septic shock Current Visit: Yes Status: Acute Plan: UTI SEEMS POSSIBLE CAUSE. SHE HAD ST. CATH SPECIMEN. URINE AND BLOOD CULTURES ARE PENDING. AGREE WITH CEFEPIME IV MAY NOT NEED VANCOMYCIN FOR LONG. IV ABX. GRAM NEG BACILLI IN URINE. BC 2 PENDING GROWTH (2) ESRD (end stage renal disease) on dialysis Current Visit: Yes Status: Chronic Plan: HD MANAGED BY RENAL DOCTORS. (3) Delirium Current Visit: No Status: Acute Plan: RELATED TO SEPTIC SHOCK. IV FLUIDS PER RENAL MD IV ABX. CHECK ABG RA IF NOT DONE. ABG TO DO TODAY. SHE POSSIBLY HAS HYPERCAPNEA LEADING TO AMS. (4) Pulmonary HTN Onset Date: 11/23/17 Current Visit: No Status: Chronic (5) Hypotension Current Visit: Yes Status: Acute Plan: SHE IS ADIVSED TO CHECK BP BEFORE SHE TAKES MEDS AT HOME. I EXPLIANED TO THAT MANY HD PATIENTS HAVE LESS MEDICINES FOR BP AFTER HD STARTS.
[2018-11-10] MEDS ORDERED: FUROSEMIDE 40 MG/4 ML VIAL IV ONE (13:51)
--- NOTE | 2018-11-10 14:09 | P.PN ---
Subjective Date of Service: 11/10/18 Chief Complaint: low BP Subjective: No new changes Bp improving , but still requires dopamine o2 desat on high flow NC now Hd today with no UF CXr worsening effusion will give IV lasix once BP imporves Ucx: +ve F/U bcx Will give vacno after HD Physical Examination - Vital Signs Temperature: 97.7 F Blood Pressure: 98/54 Pulse: 75 Respirations: 16 Pulse Ox (%): 98 - Physical Exam General: Alert HEENT: Atraumatic Neck: Supple, Without JVD or thyroid abnormality Respiratory: Diminished Cardiovascular: No edema, Regular rate/rhythm, Normal S1 S2, No murmurs Gastrointestinal: Normal bowel sounds, Soft and benign - Studies Medications List Reviewed: Yes Assessment And Plan - Current Problems (Diagnosis) (1) ESRD (end stage renal disease) on dialysis Current Visit: Yes Status: Chronic - Plan ESRD on HD TTsat at home HD tomorrow renal diet renal dose meds Shock possible septic F/u culture results on dopamine drip BP meds on hold trop WNL Cont Abx anemia on NOVA NOVA COPD o2 desaturation on high Flow NC now prognosis guarded
[2018-11-10] MEDS ORDERED: SODIUM CHLORIDE 0.9% 10ML INJ IV ONE (15:00)
[2018-11-10] MEDS: ROSUVASTATIN 10 MG TAB PO SCH (20:20)
[2018-11-10] MEDS: CEFEPIME/SWI 1gm 10 ML IV SCH (20:21)
[2018-11-11] MEDS: LEVOTHYROXINE SOD 0.1 MG TAB PO SCH (06:39)
[2018-11-11] MEDS ORDERED: ZIPRASIDONE MESYLA 20 MG/VIAL IM ONE (08:51)
[2018-11-11] MEDS: DIVALPROEX DR 500MG TAB PO SCH ×2 (08:53→21:06)
[2018-11-11] MEDS: ASPIRIN EC 81 MG TAB PO SCH (08:53)
[2018-11-11] MEDS: FAMOTIDINE 20 MG/2 ML VIAL IV SCH ×2 (08:54→21:10)
[2018-11-11] MEDS: RESTASIS EYE DROPS EACH EYE SCH ×2 (09:00→21:05)
[2018-11-11] MEDS: WATER FOR INJ,STERILE 10 ML IM PRN (09:18)
--- NOTE | 2018-11-11 10:16 | P.CNS ---
Date of Consult: 11/11/18 Chief Complaint: low BP History of Present Illness: Patient is 58 years of age admitted with low blood pressure patient is on dialysis was at [facility] in October feeling weak patient states that her bipolar is a problem son at the bedside slight shortness of breath. No cough fever chills patient is currently on dopamine alert responsive cooperative patient has a history of pulmonary hypertension hypoxic hypercapnic respiratory failure compliant with her BiPAP Allergies codeine [Codeine] Allergy (Mild, Verified 09/03/18 03:33) Itching morphine Adverse Reaction (Severe, Verified 09/03/18 03:33) Decreased blood pressure NSAIDS (Non-Steroidal Anti-Inflamma Adverse Reaction (Intermediate, Verified 10/19 03:33) kidney insufficiency Tape Allergy (Uncoded 07/05/18 10:37) Unknown Home Medications: Adcirca 20mg 2 tab PO BEDTIME 09/03/18 Allopurinol [Zyloprim*] 100 mg PO BEDTIME 09/03/18 Ascorbic Acid [Vitamin C] 500 mg PO DAILY 09/03/18 Aspirin [Aspir-Low] 81 mg PO DAILY 09/03/18 Calcium Carbonate [Calcium] 2 tab PO DAILY 09/03/18 Cholecalciferol (Vitamin D3) [Vitamin D3] 2,000 unit PO DAILY 09/03/18 Cyclosporine [Restasis] 1 drop EACH EYE BID 09/03/18 Divalproex Sodium [Depakote] 1,000 mg PO BEDTIME 09/03/18 Divalproex Sodium [Depakote] 500 mg PO DAILY 09/03/18 Esomeprazole Mag Trihydrate [Nexium] 40 mg PO DAILY 09/03/18 Icosapent Ethyl [Vascepa] 2 cap PO BID 09/03/18 Ipratropium [Atrovent 0.03% (21MCG)/[place] Nasal*] 2 sprays NS TID 09/03/18 Levothyroxine Sodium 100 mcg PO DAILY 09/03/18 Loratadine [Claritin*] 10 mg PO BEDTIME 09/03/18 Multivitamin [Multivitamins] 1 each PO BEDTIME 09/03/18 Nebivolol HCl [Bystolic*] 40 mg PO DAILY 09/03/18 Olopatadine HCl [Patanase] 2 spray NS BID 09/03/18 Rosuvastatin Calcium [Crestor] 40 mg PO BEDTIME 09/03/18 Tolterodine Tartrate [Detrol LA*] 4 mg PO BEDTIME 09/03/18 Tramadol HCl [Ultram] 50 mg PO Q8H PRN 09/03/18 Eszopiclone 3 mg PO BEDTIME 11/09/18 - Past Medical/Surgical History Diabetic: No -: sleep apnea -: IBS/GERD -: Hypothyroidism -: ANEMIA -: Pulmonary HTN -: back pain/ pinch nerves -: CKD, seasonal allergies -: HTN -: DVT -: hypertriglyceridemia -: hyperlipidemia -: lymphedema -: Hysterectomy -: Hernia repair -: Knee SX -: colon resection -: back Sx, Sciatica -: cyst removed from forehead x2 -: breast biopsy x2 -: fistula PAULINA - Family History Mother Medical History: Hypertension, Blood disorders - Social History Smoking Status: Unknown if ever smoked Alcohol use: No CD- Drugs: No Caffeine use: Yes Place of Residence: Home Review of Systems 10-point ROS is otherwise unremarkable General: Weakness Respiratory: Shortness of Breath Physical Examination Temp Pulse Resp BP Pulse Ox 97.7 F 73 15 110/55 L 99 11/11/18 04:00 11/11/18 06:00 11/11/18 06:00 11/11/18 06:00 11/11/18 06:00 General: Alert, Oriented x3 Respiratory: Clear to auscultation bilaterally, Diminished Cardiovascular: No edema, Regular rate/rhythm Gastrointestinal: Normal bowel sounds, Soft and benign - Problems (1) Hypotension Current Visit: Yes Status: Acute Plan: Patient is 58 years of age admitted with hypotension she is on dialysis history of respiratory failure with pulmonary hypertension patient has normal white count pro calcitonin level is elevated urine culture positive for E coli a incentive to Rocephin possible urosepsis patient is on dopamine chest x-ray no obvious infiltrate continue with the O2 titrate sat to 90% try and do an ABG saturation satisfactory Qualifiers: Hypotension type: unspecified hypotension type Qualified Code(s): I95.9 - Hypotension, unspecified
--- NOTE | 2018-11-11 11:11 | P.PN ---
Subjective Date of Service: 11/11/18 Chief Complaint: LOT BETTER, VERY HYPER TODAY SHE FEELS BETTER, STILL SLOW TO RESPOND IN THOUGHTS. SHE HAS NO PAIN, NO DYSPNEA, NO FEVER CARMINE IS BIPOLAR PATIENT AND SAYS I AM VERY HYPER TODAY AND I NEED A SHOT. Review of Systems 10-point ROS is otherwise unremarkable Physical Examination - Vital Signs Temperature: 97.7 F Blood Pressure: 110/55 Pulse: 73 Respirations: 15 Pulse Ox (%): 99 - Physical Exam General: Obese HEENT: Atraumatic, PERRLA, EOMI Neck: Supple, JVD not distended Respiratory: Clear to auscultation bilaterally, Normal air movement Cardiovascular: Regular rate/rhythm, Normal S1 S2 Gastrointestinal: Normal bowel sounds, No tenderness Musculoskeletal: No tenderness Integumentary: No rashes Neurological: Normal speech, Normal tone, Normal affect Lymphatics: No axilla or inguinal lymphadenopathy - Studies Medications List Reviewed: Yes Assessment And Plan - Current Problems (Diagnosis) (1) Septic shock Current Visit: Yes Status: Acute Plan: UTI SEEMS POSSIBLE CAUSE. SHE HAD ST. CATH SPECIMEN. URINE AND BLOOD CULTURES ARE PENDING. AGREE WITH CEFEPIME IV MAY NOT NEED VANCOMYCIN FOR LONG. IV ABX. GRAM NEG BACILLI IN URINE. BC 2 PENDING GROWTH E COLI SENSITIVE TO RCEPHIN. I AGREE WITH STOPPING CEFEPIME AND CHANGING TO ROCEPHIN. (2) ESRD (end stage renal disease) on dialysis Current Visit: Yes Status: Chronic Plan: HD MANAGED BY RENAL DOCTORS. (3) Delirium Current Visit: No Status: Acute Plan: RELATED TO SEPTIC SHOCK. IV FLUIDS PER RENAL MD IV ABX. CHECK ABG RA IF NOT DONE. ABG TO DO TODAY. SHE POSSIBLY HAS HYPERCAPNEA LEADING TO AMS. (4) Pulmonary HTN Onset Date: 11/23/17 Current Visit: No Status: Chronic (5) Hypotension Current Visit: Yes Status: Acute Plan: SHE IS ADIVSED TO CHECK BP BEFORE SHE TAKES MEDS AT HOME. I EXPLIANED TO THAT MANY HD PATIENTS HAVE LESS MEDICINES FOR BP AFTER HD STARTS. OFF DOPAMINE SINCE 2 AM. Qualifiers: Hypotension type: unspecified hypotension type Qualified Code(s): I95.9 - Hypotension, unspecified (6) Bipolar disorder Current Visit: Yes Status: Acute Plan: VERY TALKATIVE AND HYPER TODAY. ORDER SARAHI BECKFORD ONCE. SHE IS BIPOLAR AND WE HAVE RESUMED MEDS.
--- NOTE | 2018-11-11 11:57 | P.PN ---
Subjective Date of Service: 11/11/18 Chief Complaint: LOT BETTER, VERY HYPER TODAY ESRD pt admitted for low BP UTI today Bp improving but still low , off dopamine will start midodrine CXR tomorrow lasix prn for fluid overlaod o2 desat on high flow NC now F/U bcx Physical Examination - Vital Signs Temperature: 97.7 F Blood Pressure: 110/55 Pulse: 73 Respirations: 15 Pulse Ox (%): 99 - Physical Exam General: Alert, In no apparent distress HEENT: Atraumatic Neck: Supple, Without JVD or thyroid abnormality Respiratory: Normal air movement, Crackles/rales Cardiovascular: No edema, Normal pulses, Regular rate/rhythm, No rubs, No murmurs Gastrointestinal: Normal bowel sounds Musculoskeletal: No swelling - Studies Medications List Reviewed: Yes Assessment And Plan - Current Problems (Diagnosis) (1) ESRD (end stage renal disease) on dialysis Current Visit: Yes Status: Chronic - Plan ESRD on HD TTsat at home HD MWF while hsopitalized renal diet renal dose meds midodrine on HD Shock possible septic F/u culture results on dopamine drip BP meds on hold trop WNL Cont Abx anemia on NOVA NOVA COPD o2 desaturation on high Flow NC now pulmonary on board prognosis guarded
[2018-11-11] MEDS: MIDODRINE HCL 5 MG TABLET PO SCH ×2 (14:34→21:11)
[2018-11-11] MEDS: CEFTRIAXONE/SWI 1gm 1 GM/10 ML SYR IV SCH (17:09)
[2018-11-11] MEDS: ROSUVASTATIN 10 MG TAB PO SCH (21:06)
[2018-11-11] MEDS: ACETAMINOPHEN 500 MG TAB PO PRN (21:11)
[2018-11-11] MEDS: ESZOPICLONE 1 MG TAB PO PRN (21:13)
[2018-11-12] MEDS ORDERED: WATER FOR INJ,STERILE 10 ML IM PRN (06:05)
[2018-11-12 06:12] LABS: Absolute Lymphocytes (CBC) 1.2 K/uL (0.7-4.9); Absolute Neutrophil 2.7 K/uL (1.8-8.0); Basophils % 0.6 % (0-1.3); Eosinophils % 1.6 % (0-4.4); Hematocrit 31.7 % (36.0-45.0); Lymphocytes % 23.7 % (15.3-44.8); MPV 7.4 fL (7.6-11.3); Monocytes % 19.5 % (3.3-12.3); RBC Red Blood Cell Count 3.47 M/uL (3.86-4.86)
[2018-11-12 06:19] LABS: Potassium 4.4 mmol/L (3.5-5.1)
[2018-11-12] MEDS: WATER FOR INJ,STERILE 10 ML IM PRN ×2 (06:25→18:02)
[2018-11-12] MEDS: LEVOTHYROXINE SOD 0.1 MG TAB PO SCH (06:26)
[2018-11-12] MEDS: ZIPRASIDONE MESYLA 20 MG/VIAL IM PRN ×2 (06:27→18:02)
[2018-11-12] MEDS ORDERED: SODIUM CHLORIDE 0.9% 10ML INJ IV ONE (07:00)
[2018-11-12] MEDS ORDERED: COSYNTROPIN 0.25 MG VIAL IV ONE (07:00)
[2018-11-12 08:18] LABS: Anisocytosis 2+; Blood Morphology Comment NOTED (NOT SEEN); Platelet Estimate ADEQ; Teardrop Cell 1+
[2018-11-12] MEDS ORDERED: NA CHLORIDE 0.9% 1,000 ML IV PRN (08:59)
[2018-11-12] MEDS: RESTASIS EYE DROPS EACH EYE SCH ×4 (09:12→21:35)
[2018-11-12] MEDS: ASPIRIN EC 81 MG TAB PO SCH (09:12)
[2018-11-12] MEDS: DIVALPROEX DR 500MG TAB PO SCH ×2 (09:13→21:25)
[2018-11-12] MEDS: QUETIAPINE 25 MG TAB PO SCH ×2 (09:14→21:33)
[2018-11-12] MEDS: MIDODRINE HCL 5 MG TABLET PO SCH ×3 (09:14→21:36)
[2018-11-12] MEDS: FAMOTIDINE 20 MG/2 ML VIAL IV SCH ×2 (09:14→21:34)
[2018-11-12] MEDS: EPOETIN ALFA 10,000 UNIT/ML VIAL SQ SCH (10:34)
[2018-11-12] MEDS: CEFTRIAXONE/SWI 1gm 1 GM/10 ML SYR IV SCH (17:27)
[2018-11-12] MEDS: ACETAMINOPHEN 500 MG TAB PO PRN (17:27)
--- NOTE | 2018-11-12 17:47 | P.PN ---
Subjective Date of Service: 11/12/18 Chief Complaint: LOT BETTER, VERY HYPER TODAY Subjective: Improving SHE FEELS BETTER, STILL SLOW TO RESPOND IN THOUGHTS. SHE HAS NO PAIN, NO DYSPNEA, NO FEVER CARMINE IS BIPOLAR PATIENT AND SAYS I AM VERY HYPER TODAY AND I NEED A SHOT. BP IS BETTER BUT SHE HAS BECOME LOT MORE ANXIOUS. ASKING FOR INJECTION FOR ANXIETY. Review of Systems 10-point ROS is otherwise unremarkable General: Weakness, Malaise Physical Examination - Vital Signs Temperature: 97.9 F Blood Pressure: 130/54 Pulse: 72 Respirations: 17 Pulse Ox (%): 95 - Physical Exam General: Alert, Mild distress, Obese HEENT: Atraumatic, PERRLA, EOMI Neck: Supple, JVD not distended Respiratory: Diminished Cardiovascular: Regular rate/rhythm, Normal S1 S2 Gastrointestinal: Normal bowel sounds, No tenderness Musculoskeletal: No tenderness Integumentary: No rashes Neurological: Normal speech, Normal tone, Normal affect Lymphatics: No axilla or inguinal lymphadenopathy - Studies Medications List Reviewed: Yes Assessment And Plan - Current Problems (Diagnosis) (1) Septic shock Current Visit: Yes Status: Acute Plan: UTI SEEMS POSSIBLE CAUSE. SHE HAD ST. CATH SPECIMEN. URINE AND BLOOD CULTURES ARE PENDING. AGREE WITH CEFEPIME IV MAY NOT NEED VANCOMYCIN FOR LONG. IV ABX. GRAM NEG BACILLI IN URINE. BC 2 PENDING GROWTH E COLI SENSITIVE TO RCEPHIN. I AGREE WITH STOPPING CEFEPIME AND CHANGING TO ROCEPHIN. (2) ESRD (end stage renal disease) on dialysis Current Visit: Yes Status: Chronic Plan: HD MANAGED BY RENAL DOCTORS. (3) Delirium Current Visit: No Status: Acute Plan: RELATED TO SEPTIC SHOCK. IV FLUIDS PER RENAL MD IV ABX. CHECK ABG RA IF NOT DONE. ABG TO DO TODAY. SHE POSSIBLY HAS HYPERCAPNEA LEADING TO AMS. (4) Pulmonary HTN Onset Date: 11/23/17 Current Visit: No Status: Chronic (5) Hypotension Current Visit: Yes Status: Acute Plan: SHE IS ADIVSED TO CHECK BP BEFORE SHE TAKES MEDS AT HOME. I EXPLIANED TO THAT MANY HD PATIENTS HAVE LESS MEDICINES FOR BP AFTER HD STARTS. OFF DOPAMINE SINCE 2 AM. Qualifiers: Hypotension type: unspecified hypotension type Qualified Code(s): I95.9 - Hypotension, unspecified (6) Bipolar disorder Current Visit: Yes Status: Acute Plan: VERY TALKATIVE AND HYPER TODAY. ORDER SARAHI IM ONCE. SHE IS BIPOLAR AND WE HAVE RESUMED MEDS. AGIATION. I ADDED SHAYAN BID CONTINUE DEPAKOT.
[2018-11-12] MEDS: ROSUVASTATIN 10 MG TAB PO SCH (21:31)
[2018-11-12] MEDS: ESZOPICLONE 1 MG TAB PO PRN (21:33)
--- NOTE | 2018-11-13 04:04 | PN ---
Date of Progress Note: 11/12/2018 Chief Complaint: End-stage renal disease. History Of Present Illness: The patient is admitted to the hospital for accelerated hypertension and urinary tract infection. Blood pressure is improving with dialysis. The patient was found to have severe hypotension and required dopamine infusion. The patient is started on midodrine. Blood press ure is improving. The patient received Lasix for volemia control. The patient is on O2 nasal cannula for hypoxemic res piratory failure. Review of Systems: Denies fever, chills. Physical Examination: Vital Signs: Blood pressure is 110/55, heart rate 73, respiratory rate of 15. Lungs: Crackles at both bases. Heart: S1, S2. Abdomen: Soft, benign. Extremities: No edema. Laboratory Data: Blood work; hemoglobin 10.6, WBC 5.0, platelet count is 138,000. Sodium 139, potas sium 4.4, chloride 104, CO2 23, BUN 45, creatinine 5.58, calcium 7.9. Impression And Plan: 1.End-stage renal disease, fluid overload. The patient will continue dialysis with ultrafiltration. Adjust ultrafiltration goal according to blood pressure and volemia status. 2.Renal osteodystrophy. Continue renal diet and binders. Monitor phosphorus level, adjust treatmen t accordingly. 3.Chronic obstructive pulmonary disease exacerbation. Continue O2 nasal cannula nebulizer. The pat ient may benefit from antibiotics. Continue antibiotics for sepsis and septic shock. The patient required midodrine for blood pressure support. Currently she is off dopamine drip. Continue midodri ne. EB/MODL Voice ID: [id number] Report ID: [id number]
[2018-11-13] MEDS: LEVOTHYROXINE SOD 0.1 MG TAB PO SCH (06:06)
[2018-11-13 06:09] LABS: Potassium 3.6 mmol/L (3.5-5.1)
[2018-11-13 06:14] LABS: Basophils % 0.6 % (0-1.3); Eosinophils % 0.7 % (0-4.4); Hematocrit 29.8 % (36.0-45.0); Lymphocytes % 20.7 % (15.3-44.8)
[2018-11-13] MEDS: QUETIAPINE 25 MG TAB PO SCH ×2 (08:53→21:14)
[2018-11-13] MEDS: FAMOTIDINE 20 MG/2 ML VIAL IV SCH ×2 (08:53→21:14)
[2018-11-13] MEDS: ASPIRIN EC 81 MG TAB PO SCH (08:53)
[2018-11-13] MEDS: MIDODRINE HCL 5 MG TABLET PO SCH ×3 (08:53→21:15)
[2018-11-13] MEDS: DIVALPROEX DR 500MG TAB PO SCH ×2 (08:55→21:15)
[2018-11-13 08:56] LABS: Platelet Estimate ADEQ; Urine White Blood Cell Casts OK
[2018-11-13 08:57] LABS: Anisocytosis 1+; Basophilic Stippling 2+; Blood Morphology Comment NOTED (NOT SEEN); Polychromasia 1+
[2018-11-13] MEDS: RESTASIS EYE DROPS EACH EYE SCH ×2 (08:57→21:16)
[2018-11-13] MEDS: ACETAMINOPHEN 500 MG TAB PO PRN (14:44)
[2018-11-13] MEDS ORDERED: Meropenem 500 MG VIAL IV SCH (16:00)
[2018-11-13] MEDS: Meropenem 500 MG in NA CHLORIDE 0.9% 100 ML IV SCH (17:37)
--- NOTE | 2018-11-13 18:31 | P.PN ---
Subjective Date of Service: 11/13/18 Chief Complaint: LETHARGIC AGAIN. Subjective: Worsening SHE FEELS BETTER, STILL SLOW TO RESPOND IN THOUGHTS. SHE HAS NO PAIN, NO DYSPNEA, NO FEVER CARMINE IS BIPOLAR PATIENT AND SAYS I AM VERY HYPER TODAY AND I NEED A SHOT. BP IS BETTER BUT SHE HAS BECOME LOT MORE ANXIOUS. ASKING FOR INJECTION FOR ANXIETY. CARMINE IS MORBIDLY OBESE LADY WITH MANY ISSUES, END STAGE RENAL FAILURE, OBESITY HYPOVENTILATION SYNDROME. SHE TODAY IS LETHARGIC. SHE IS NOT ABLE TO LIFT HER ARMS. Review of Systems General: Weakness, Malaise Physical Examination - Vital Signs Temperature: 97.2 F Blood Pressure: 107/55 Pulse: 88 Respirations: 18 Pulse Ox (%): 97 - Physical Exam General: Moderate distress, Obese, Other (LETHARGIC.) Respiratory: Diminished Cardiovascular: Normal S1 S2 Neurological: Abnormal speech (SLURRED WITH DECRESED SENSORIUM. LATER NURSE CALLED THAT SHE IS NOT ABLE TO LIFT ARMS. SHE HAS VERY HEAVY ARMS ANYWAY.) - Studies Medications List Reviewed: Yes Assessment And Plan - Current Problems (Diagnosis) (1) Septic shock Current Visit: Yes Status: Acute Plan: UTI SEEMS POSSIBLE CAUSE. SHE HAD ST. CATH SPECIMEN. URINE AND BLOOD CULTURES ARE PENDING. AGREE WITH CEFEPIME IV MAY NOT NEED VANCOMYCIN FOR LONG. IV ABX. GRAM NEG BACILLI IN URINE. BC 2 PENDING GROWTH E COLI SENSITIVE TO RCEPHIN. I AGREE WITH STOPPING CEFEPIME AND CHANGING TO ROCEPHIN. (2) ESRD (end stage renal disease) on dialysis Current Visit: Yes Status: Chronic Plan: HD MANAGED BY RENAL DOCTORS. (3) Delirium Current Visit: No Status: Acute Plan: RELATED TO SEPTIC SHOCK. IV FLUIDS PER RENAL MD IV ABX. CHECK ABG RA IF NOT DONE. ABG TO DO TODAY. SHE POSSIBLY HAS HYPERCAPNEA LEADING TO AMS. (4) Pulmonary HTN Onset Date: 11/23/17 Current Visit: No Status: Chronic (5) Hypotension Current Visit: Yes Status: Acute Plan: SHE IS ADIVSED TO CHECK BP BEFORE SHE TAKES MEDS AT HOME. I EXPLIANED TO THAT MANY HD PATIENTS HAVE LESS MEDICINES FOR BP AFTER HD STARTS. OFF DOPAMINE SINCE 2 AM. Qualifiers: Hypotension type: unspecified hypotension type Qualified Code(s): I95.9 - Hypotension, unspecified (6) Bipolar disorder Current Visit: Yes Status: Acute Plan: VERY TALKATIVE AND HYPER TODAY. ORDER SARAHI IM ONCE. SHE IS BIPOLAR AND WE HAVE RESUMED MEDS. AGIATION. I ADDED SEROQUEL BID CONTINUE DEPAKOT. (7) Obesity hypoventilation syndrome Current Visit: Yes Status: Chronic Plan: THIS CARRIES VERY POOR PROGNOSIS DESPITE HER ON HD FOR ESRD. I TALKED TO , HE HAS AGREED FOR DNR STATUS. SHE WHEN LUCID HAD TOLD HIM THAT SHE WANTS TO STOP HD AND GO. I ASKED HIM TO THINK ABOUT HER WISHES AND DECIDE.
[2018-11-13] MEDS: ZIPRASIDONE MESYLA 20 MG/VIAL IM PRN (18:44)
--- NOTE | 2018-11-13 20:25 | PN ---
Date of Progress Note: 11/13/2018 Subjective: The patient was admitted with low blood pressure, urosepsis. The patient treated, start ed to recover. Physical Examination: Vital Signs: When I saw the patient, blood pressure 105/54, pulse of 85, afebrile. Chest: Faint crackles bilateral base. Heart: S1 and S2, regular. Abdomen: Soft and nontender. Extremities: No edema. Laboratory Data: WBC 5.1, H and H 9.9/29.8, platelet of 125. Sodium 137, potassium 3.6, bicarb 27, BUN 36, creatinine 4.4, calcium 8.1. Current Medications: The patient on its include: 1.Ceftriaxone. 2.Aspirin. 3.Midodrine. 4.Epogen. 5.Atorvastatin. 6.Depakote. 7.Lunesta. 8.Geodon. 9.Pepcid. 10.Zofran. 11.Tramadol. 12.Levothyroxine. Assessment And Plan: 1.End-stage renal disease. I am going to continue the patient on dialysis. The patient is going to be scheduled for dialysis tomorrow. 2.Urinary tract infection. We will switch the patient to meropenem as by the sensitivity and we lucia l follow up the patient. 3.Hypertension. Currently blood pressure on the lower side. I am going to dialyze the patient with sodium module and low temperature and we will follow up. 4.Psychosis, depression. Follow up with the primary. ARIAN Voice ID: [id number] Report ID: [id number]
[2018-11-13] MEDS: ESZOPICLONE 1 MG TAB PO PRN (21:14)
[2018-11-13] MEDS: ROSUVASTATIN 10 MG TAB PO SCH (21:15)
[2018-11-14 03:10] LABS: HBsAG Nonreactive (Nonreactive)
[2018-11-14 03:34] LABS: Absolute Lymphocytes (CBC) 1.1 K/uL (0.7-4.9); Absolute Monocytes 0.9 K/uL (0.1-1.3); Absolute Neutrophil 2.4 K/uL (1.8-8.0); Basophils % 0.9 % (0-1.3); Eosinophils % 1.4 % (0-4.4); Hematocrit 27.7 % (36.0-45.0); Lymphocytes % 24.1 % (15.3-44.8); MPV 7.8 fL (7.6-11.3)
[2018-11-14 03:38] LABS: Monocytes % 20.5 % (3.3-12.3)
[2018-11-14 04:02] LABS: Potassium 3.6 mmol/L (3.5-5.1)
[2018-11-14] MEDS: LEVOTHYROXINE SOD 0.1 MG TAB PO SCH (06:36)
[2018-11-14] MEDS: QUETIAPINE 25 MG TAB PO SCH ×2 (09:05→20:39)
[2018-11-14] MEDS: DIVALPROEX DR 500MG TAB PO SCH ×2 (09:06→20:39)
[2018-11-14] MEDS: MIDODRINE HCL 5 MG TABLET PO SCH ×3 (09:06→20:39)
[2018-11-14] MEDS: ASPIRIN EC 81 MG TAB PO SCH (09:06)
[2018-11-14] MEDS: RESTASIS EYE DROPS EACH EYE SCH ×2 (09:07→20:37)
[2018-11-14] MEDS: ZIPRASIDONE MESYLA 20 MG/VIAL IM PRN (09:08)
[2018-11-14] MEDS: FAMOTIDINE 20 MG/2 ML VIAL IV SCH ×2 (09:14→20:39)
[2018-11-14] MEDS ORDERED: ALTEPLASE 2 MG/VIAL IV ONE (10:40)
[2018-11-14] MEDS ORDERED: WATER FOR INJ,STERILE 10 ML IV ONE (10:40)
[2018-11-14] MEDS: EPOETIN ALFA 10,000 UNIT/ML VIAL SQ SCH (11:11)
[2018-11-14] MEDS: ACETAMINOPHEN 500 MG TAB PO PRN (16:11)
[2018-11-14] MEDS: Meropenem 500 MG in NA CHLORIDE 0.9% 100 ML IV SCH (16:12)
[2018-11-14] MEDS: ESZOPICLONE 1 MG TAB PO PRN (20:38)
[2018-11-14] MEDS: ROSUVASTATIN 10 MG TAB PO SCH (20:38)
--- NOTE | 2018-11-14 21:54 | P.PN ---
Subjective Date of Service: 11/14/18 Chief Complaint: LETHARGIC AGAIN. Subjective: Worsening SHE FEELS BETTER, STILL SLOW TO RESPOND IN THOUGHTS. SHE HAS NO PAIN, NO DYSPNEA, NO FEVER CARMINE IS BIPOLAR PATIENT AND SAYS I AM VERY HYPER TODAY AND I NEED A SHOT. BP IS BETTER BUT SHE HAS BECOME LOT MORE ANXIOUS. ASKING FOR INJECTION FOR ANXIETY. CARMINE IS MORBIDLY OBESE LADY WITH MANY ISSUES, END STAGE RENAL FAILURE, OBESITY HYPOVENTILATION SYNDROME. SHE TODAY IS LETHARGIC. SHE IS NOT ABLE TO LIFT HER ARMS. NATHALY IS WEAK, NOT ABLE TO GET OUT OF BED, LETHARGIC. Review of Systems 10-point ROS is otherwise unremarkable General: Weakness, Malaise Neurological: Weakness, Numbness, Confusion (MOST OF THE TIME, NOT ABLE TO CONVERSE INTELLIGBLY.) Physical Examination - Vital Signs Temperature: 98.2 F Blood Pressure: 135/68 Pulse: 103 Respirations: 20 Pulse Ox (%): 94 - Physical Exam General: Moderate distress, Obese, Other (SALIVA DROOLS FROM MOUTH. SHE HAS CPAP IN USE.) HEENT: Atraumatic, PERRLA, EOMI Neck: Supple, JVD not distended Respiratory: Diminished Cardiovascular: Regular rate/rhythm, Normal S1 S2 Gastrointestinal: Normal bowel sounds, No tenderness Musculoskeletal: No tenderness Integumentary: No rashes Neurological: Other (DISORIENTED TO TIME AND PLACE.), Abnormal speech (SLURRED.) Lymphatics: No axilla or inguinal lymphadenopathy - Studies Microbiology Data (last 24 hrs): 11/09/18 00:38 Catheterized Urine [place] Count - Final >100,000 CFU/ML. 11/09/18 00:38 Catheterized Urine - Final Escherichia Coli 11/08/18 23:50 Blood - Blood Aerobic Blood Culture - Final No growth in 5 days. 11/08/18 23:50 Blood - Blood Anaerobic Blood Culture - Final No growth in 5 days. 11/08/18 23:29 Blood - Blood Aerobic Blood Culture - Final No growth in 5 days. 11/08/18 23:29 Blood - Blood Anaerobic Blood Culture - Final No growth in 5 days. Medications List Reviewed: Yes Assessment And Plan - Current Problems (Diagnosis) (1) Septic shock Current Visit: Yes Status: Acute Plan: UTI SEEMS POSSIBLE CAUSE. SHE HAD ST. CATH SPECIMEN. URINE AND BLOOD CULTURES ARE PENDING. AGREE WITH CEFEPIME IV MAY NOT NEED VANCOMYCIN FOR LONG. IV ABX. GRAM NEG BACILLI IN URINE. BC 2 PENDING GROWTH E COLI SENSITIVE TO RCEPHIN. I AGREE WITH STOPPING CEFEPIME AND CHANGING TO ROCEPHIN. SHE IS SENSITIVE TO ROCEPHIN BUT DR. WINTERS WANTED TO SWITCH BACK TO MERREM SHE IS WORSE. IN MY OPINION SHE WILL NOT DO WELL ANY WAY. SHEHAS BEEN IN HOSPITAL OFF AND ON FOR LAST 6 MONTHS. SHE IS IN POOR GENERAL CONDITION. SHE GETS COMPLICATIONS DESPITE BEING ON HEMODIALYSIS. HER IS NOT ABLE TO TAKE CARE OF HER. HER PROGNOSIS REMAINS POOR. DR. WINTERS WANTS TO GIVE HER LAST CHANCE BY LTAC REFERRAL. IN MY OPINON SHE IS READY FOR HOSPICE AND AFTER A LOT OF DIFFICULTY IS ABLE TO DECIDE. HE UNDERSTAND BUT FEELS A LOT OF BURDEN TO DECIDE. SHE WILL GO TO LTAC IF APPROVED BY INSURNACE OR WILL BE ON HOSPICE. (2) ESRD (end stage renal disease) on dialysis Current Visit: Yes Status: Chronic Plan: HD MANAGED BY RENAL DOCTORS. (3) Delirium Current Visit: No Status: Acute Plan: RELATED TO SEPTIC SHOCK. IV FLUIDS PER RENAL MD IV ABX. CHECK ABG RA IF NOT DONE. ABG TO DO TODAY. SHE POSSIBLY HAS HYPERCAPNEA LEADING TO AMS. (4) Pulmonary HTN Onset Date: 11/23/17 Current Visit: No Status: Chronic (5) Hypotension Current Visit: Yes Status: Acute Plan: SHE IS ADIVSED TO CHECK BP BEFORE SHE TAKES MEDS AT HOME. I EXPLIANED TO THAT MANY HD PATIENTS HAVE LESS MEDICINES FOR BP AFTER HD STARTS. OFF DOPAMINE SINCE 2 AM. Qualifiers: Hypotension type: unspecified hypotension type Qualified Code(s): I95.9 - Hypotension, unspecified (6) Bipolar disorder Current Visit: Yes Status: Acute Plan: VERY TALKATIVE AND HYPER TODAY. ORDER SARYDON IM ONCE. SHE IS BIPOLAR AND WE HAVE RESUMED MEDS. AGIATION. I ADDED SEROQUEL BID CONTINUE DEPAKOT. (7) Obesity hypoventilation syndrome Current Visit: Yes Status: Chronic Plan: THIS CARRIES VERY POOR PROGNOSIS DESPITE HER ON HD FOR ESRD. I TALKED TO , HE HAS AGREED FOR DNR STATUS. SHE WHEN LUCID HAD TOLD HIM THAT SHE WANTS TO STOP HD AND GO. I ASKED HIM TO THINK ABOUT HER WISHES AND DECIDE.
[2018-11-15] MEDS: LEVOTHYROXINE SOD 0.1 MG TAB PO SCH (06:33)
[2018-11-15 07:34] LABS: Potassium 4.3 mmol/L (3.5-5.1)
[2018-11-15 09:23] LABS: Absolute Lymphocytes (CBC) 0.9 K/uL (0.7-4.9); Absolute Neutrophil 3.3 K/uL (1.8-8.0); Basophils % 0.7 % (0-1.3); Eosinophils % 1.6 % (0-4.4); Lymphocytes % 16.8 % (15.3-44.8); MPV 6.8 fL (7.6-11.3); Monocytes % 18.2 % (3.3-12.3); RBC Red Blood Cell Count 3.37 M/uL (3.86-4.86)
[2018-11-15] MEDS: QUETIAPINE 25 MG TAB PO SCH ×2 (09:27→20:45)
[2018-11-15] MEDS: MIDODRINE HCL 5 MG TABLET PO SCH ×3 (09:28→20:45)
[2018-11-15] MEDS: RESTASIS EYE DROPS EACH EYE SCH ×2 (09:28→20:55)
[2018-11-15] MEDS: DIVALPROEX DR 500MG TAB PO SCH ×2 (09:28→20:44)
[2018-11-15] MEDS: ASPIRIN EC 81 MG TAB PO SCH (09:29)
[2018-11-15] MEDS: FAMOTIDINE 20 MG/2 ML VIAL IV SCH ×2 (09:29→20:46)
[2018-11-15] MEDS: ACETAMINOPHEN 500 MG TAB PO PRN (12:45)
[2018-11-15 12:48] LABS: Anisocytosis 1+; Blood Morphology Comment NOTED (NOT SEEN); Platelet Estimate ADEQ
--- NOTE | 2018-11-15 13:30 | P.PN ---
Subjective Date of Service: 11/15/18 Chief Complaint: LETHARGIC AGAIN. Subjective: No new changes ESRD pt admitted for low BP UTI today HD today to achieve better volume status wBC trending up bcx results -ve cont merrem pending discharge to LTAC CXR tomorrow prognosis guarded Physical Examination - Vital Signs Temperature: 97.1 F Blood Pressure: 180/83 Pulse: 95 Respirations: 24 Pulse Ox (%): 94 - Physical Exam General: Alert, In no apparent distress HEENT: Atraumatic Neck: Supple, JVD not distended, Without JVD or thyroid abnormality Respiratory: Diminished Cardiovascular: No edema, Regular rate/rhythm, Normal S1 S2, No rubs, No murmurs Gastrointestinal: Normal bowel sounds, Soft and benign Musculoskeletal: No swelling - Studies Medications List Reviewed: Yes Assessment And Plan - Current Problems (Diagnosis) (1) ESRD (end stage renal disease) on dialysis Current Visit: Yes Status: Chronic - Plan ESRD on HD TTsat at home extra HD today to achieve better status renal diet renal dose meds midodrine on HD septic shock F/u culture results Cont Abx anemia on NOVA COPD on Oxygen pulmonary on board prognosis guarded
--- NOTE | 2018-11-15 13:45 | PN ---
Date of Progress Note: 11/14/2018 Subjective: The patient was admitted with low blood pressure, found to have a UTI. The patient is still feeling weak, lethargic. Physical Examination: Vital Signs: Blood pressure 135/68, pulse of 88 Chest: Crackles bilateral. Heart: S1 and S2. Systolic murmur. Abdomen: Soft, nontender. Extremities: +1 edema. Neuro: Alert, oriented. No focal Laboratory Data: WBC 4.5, H and H 9/27.7. Sodium 139, potassium 3.6, BUN 34, creatinine 5, calcium 8. Current Medications: The patient is on include: 1. Aspirin. 2. Meropenem. 3. Midodrine. 4. Tylenol. 5. Pepcid. 6. Geodon. 7. Zofran. Assessment And Plan: 1. End-stage renal disease. We will continue the patient on dialysis. The patient still looks weak on the overall volume side. I am going to do sequential dialysis tomorrow. 2. Hypertension, controlled. Currently on the lower side. We will continue on midodrine. Keep holding the blood pressure medication. 3. Anemia of chronic kidney disease. Continue Epogen. 4. UTI complecated with encaphlopathy multi drug resitance : We will follow up with primary secondary to Escherichia coli. I am going to go ahead and switch the patient to Meropenem discussion with the patient and her regarding the option of treatment given the presence of bipolar depression. The patient decided to go to LTAC to finish her antibiotic and the patient is still weak. May the patient be designated as a Hospice, we will stop the dialysis. In the meantime, we continue to [facility] for the response and we will get psych evaluation . 5. Over volume congestive heart failure with pulmonary hypertension. We will do sequential daily dialysis and we will follow up. ARIAN Voice ID: [id number] Report ID: [id number] JALEN
[2018-11-15] MEDS: Meropenem 500 MG in NA CHLORIDE 0.9% 100 ML IV SCH (17:50)
[2018-11-15] MEDS: ROSUVASTATIN 10 MG TAB PO SCH (20:44)
--- NOTE | 2018-11-15 21:19 | P.PN ---
Subjective Date of Service: 11/15/18 Chief Complaint: LOT MORE AWAKE TODAY Subjective: Improving SHE FEELS BETTER, STILL SLOW TO RESPOND IN THOUGHTS. SHE HAS NO PAIN, NO DYSPNEA, NO FEVER CARMINE IS BIPOLAR PATIENT AND SAYS I AM VERY HYPER TODAY AND I NEED A SHOT. BP IS BETTER BUT SHE HAS BECOME LOT MORE ANXIOUS. ASKING FOR INJECTION FOR ANXIETY. CARMINE IS MORBIDLY OBESE LADY WITH MANY ISSUES, END STAGE RENAL FAILURE, OBESITY HYPOVENTILATION SYNDROME. SHE TODAY IS LETHARGIC. SHE IS NOT ABLE TO LIFT HER ARMS. NATHALY IS WEAK, NOT ABLE TO GET OUT OF BED, LETHARGIC. SHE IS LUCID TODAY AND TELLS ME SHE DOES NOT WANT TO LIVE LIKE THIS ON HEMODIALYSIS. Review of Systems General: Weakness, Malaise Physical Examination - Vital Signs Temperature: 97.7 F Blood Pressure: 153/62 Pulse: 89 Respirations: 24 Pulse Ox (%): 96 - Physical Exam General: Alert, Mild distress, Obese HEENT: Atraumatic, PERRLA, EOMI Neck: Supple, JVD not distended, Other (L SIDE AREA WHERE THE CATHETER IS INSERTED, VISIBLE AREA BENEATH THE SKIN SHOW OVERLAYING SKIN LESS ERYTHEMATOUS THAN YESTERDAY SINCE SHE IS BACK ON MERREM. ) Respiratory: Clear to auscultation bilaterally, Normal air movement Cardiovascular: Regular rate/rhythm, Normal S1 S2 Gastrointestinal: Normal bowel sounds, No tenderness Musculoskeletal: No tenderness Integumentary: No rashes Neurological: Normal speech, Normal tone, Normal affect Lymphatics: No axilla or inguinal lymphadenopathy - Studies Medications List Reviewed: Yes Assessment And Plan - Current Problems (Diagnosis) (1) Septic shock Current Visit: Yes Status: Acute Plan: UTI SEEMS POSSIBLE CAUSE. SHE HAD ST. CATH SPECIMEN. URINE AND BLOOD CULTURES ARE PENDING. AGREE WITH CEFEPIME IV MAY NOT NEED VANCOMYCIN FOR LONG. IV ABX. GRAM NEG BACILLI IN URINE. BC 2 PENDING GROWTH E COLI SENSITIVE TO RCEPHIN. I AGREE WITH STOPPING CEFEPIME AND CHANGING TO ROCEPHIN. SHE IS SENSITIVE TO ROCEPHIN BUT DR. WINTERS WANTED TO SWITCH BACK TO MERREM SHE IS WORSE. IN MY OPINION SHE WILL NOT DO WELL ANY WAY. PIERCEHAS BEEN IN HOSPITAL OFF AND ON FOR LAST 6 MONTHS. SHE IS IN POOR GENERAL CONDITION. SHE GETS COMPLICATIONS DESPITE BEING ON HEMODIALYSIS. HER IS NOT ABLE TO TAKE CARE OF HER. HER PROGNOSIS REMAINS POOR. DR. WINTERS WANTS TO GIVE HER LAST CHANCE BY LTAC REFERRAL. IN MY OPINON SHE IS READY FOR HOSPICE AND AFTER A LOT OF DIFFICULTY IS ABLE TO DECIDE. HE UNDERSTAND BUT FEELS A LOT OF BURDEN TO DECIDE. SHE WILL GO TO LTAC IF APPROVED BY INSURNACE OR WILL BE ON HOSPICE. HER CATHETER IN L [place] MAY BE INFECTED. HER CULTURE WAS NEGATIVE. I TOLD DR. WINTERS ABOUT MY SUSPICION OF CATHETER BEING SOURCE OF INFECTION IN ADDITION TO URINE. URINE IS SENSITIVE TO ROCEPHIN BUT SHE GOT WORSE OFF MERREM AND GOT BETTER WHEN MERREM WAS RESTARTED. PATIENT WILL BE TAKEN TO LTAC TO RECOVER IF APPROVED BY INSURANCE. (2) ESRD (end stage renal disease) on dialysis Current Visit: Yes Status: Chronic Plan: HD MANAGED BY RENAL DOCTORS. (3) Delirium Current Visit: No Status: Acute Plan: RELATED TO SEPTIC SHOCK. IV FLUIDS PER RENAL MD IV ABX. CHECK ABG RA IF NOT DONE. ABG TO DO TODAY. SHE POSSIBLY HAS HYPERCAPNEA LEADING TO AMS. (4) Pulmonary HTN Onset Date: 11/23/17 Current Visit: No Status: Chronic (5) Hypotension Current Visit: Yes Status: Acute Plan: SHE IS ADIVSED TO CHECK BP BEFORE SHE TAKES MEDS AT HOME. I EXPLIANED TO THAT MANY HD PATIENTS HAVE LESS MEDICINES FOR BP AFTER HD STARTS. OFF DOPAMINE SINCE 2 AM. Qualifiers: Hypotension type: unspecified hypotension type Qualified Code(s): I95.9 - Hypotension, unspecified (6) Bipolar disorder Current Visit: Yes Status: Acute Plan: VERY TALKATIVE AND HYPER TODAY. ORDER SARAHI BECKFORD ONCE. SHE IS BIPOLAR AND WE HAVE RESUMED MEDS. AGIATION. I ADDED SEROQUEL BID CONTINUE DEPAKOT. (7) Obesity hypoventilation syndrome Current Visit: Yes Status: Chronic Plan: THIS CARRIES VERY POOR PROGNOSIS DESPITE HER ON HD FOR ESRD. I TALKED TO , HE HAS AGREED FOR DNR STATUS. SHE WHEN LUCID HAD TOLD HIM THAT SHE WANTS TO STOP HD AND GO. I ASKED HIM TO THINK ABOUT HER WISHES AND DECIDE.
[2018-11-16] MEDS: LEVOTHYROXINE SOD 0.1 MG TAB PO SCH (05:22)
[2018-11-16 06:52] VITALS: BMI 37.2
[2018-11-16 06:55] LABS: Absolute Lymphocytes (CBC) 1.5 K/uL (0.7-4.9); Absolute Monocytes 1.4 K/uL (0.1-1.3); Absolute Neutrophil 3.6 K/uL (1.8-8.0); Basophils % 0.8 % (0-1.3); Eosinophils % 2.2 % (0-4.4); Hematocrit 31.3 % (36.0-45.0); Lymphocytes % 22.8 % (15.3-44.8); MPV 7.1 fL (7.6-11.3); Monocytes % 20.9 % (3.3-12.3); RBC Red Blood Cell Count 3.29 M/uL (3.86-4.86)
[2018-11-16 07:55] LABS: Blood Morphology Comment NOT SEEN (NOT SEEN); Urine White Blood Cell Casts OK
[2018-11-16 07:56] LABS: Platelet Estimate ADEQ
[2018-11-16] MEDS: DIVALPROEX DR 500MG TAB PO SCH (08:58)
--- NOTE | 2018-11-16 08:59 | RAD REPORT ---
EXAM DESCRIPTION: RAD - Chest Single View - 11/16/2018 8:32 am CLINICAL HISTORY: evaluate for effusion Chest pain. COMPARISON: Chest Single View dated 11/10/2018; Chest Single View dated 11/08/2018; Chest Single View d ated 09/12/2018; Chest Single View dated 09/11/2018 FINDINGS: Portable technique limits examination quality. Small left pleural effusion with linear atelectasis in the left lung base. Moderate cardiomegaly is p resent with left-sided venous catheter in place. Overall, no significant change since prior study.
[2018-11-16] MEDS: QUETIAPINE 25 MG TAB PO SCH (09:02)
[2018-11-16] MEDS: FAMOTIDINE 20 MG/2 ML VIAL IV SCH (09:02)
[2018-11-16] MEDS: ASPIRIN EC 81 MG TAB PO SCH (09:02)
[2018-11-16] MEDS: MIDODRINE HCL 5 MG TABLET PO SCH ×2 (09:02→14:00)
[2018-11-16] MEDS: RESTASIS EYE DROPS EACH EYE SCH (09:03)
[2018-11-16 10:14] VITALS: O2SAT 98
--- NOTE | 2018-11-16 12:08 | P.PN ---
Subjective Date of Service: 11/16/18 Chief Complaint: LOT MORE AWAKE TODAY Subjective: Improving ESRD pt admitted for low BP UTI today feels better Off O2 CXR: mild lt pleural effusion likely will be discharged to LTAC today H tomorrow bcx results -ve cont merrem prognosis guarded Physical Examination - Vital Signs Temperature: 98.3 F Blood Pressure: 140/67 Pulse: 85 Respirations: 20 Pulse Ox (%): 96 - Physical Exam General: Alert, In no apparent distress HEENT: Atraumatic Neck: Supple, Without JVD or thyroid abnormality Respiratory: Diminished (decreased air entry at the bases ) Cardiovascular: No edema, Normal pulses, Regular rate/rhythm, No gallops, No rubs, No murmurs Gastrointestinal: Normal bowel sounds - Studies Medications List Reviewed: Yes Assessment And Plan - Current Problems (Diagnosis) (1) ESRD (end stage renal disease) on dialysis Current Visit: Yes Status: Chronic - Plan ESRD on HD TTsat at home extra HD today to achieve better status renal diet renal dose meds midodrine on HD septic shock F/u culture results Cont Abx anemia on NOVA COPD on Oxygen pulmonary on board prognosis guarded
[2018-11-16] MEDS: ACETAMINOPHEN 500 MG TAB PO PRN (12:14)
--- NOTE | 2018-11-16 14:58 | P.DS ---
Admission Date: 11/09/18 Discharge Date: 11/16/18 Disposition: [facility] Discharge Condition: SERIOUS Reason for Admission: LOT MORE AWAKE TODAY - Problems (1) Septic shock Current Visit: Yes Status: Acute (2) ESRD (end stage renal disease) on dialysis Current Visit: Yes Status: Chronic (3) Delirium Current Visit: No Status: Acute (4) Pulmonary HTN Onset Date: 11/23/17 Current Visit: No Status: Chronic (5) Hypotension Current Visit: Yes Status: Acute Qualifiers: Hypotension type: unspecified hypotension type Qualified Code(s): I95.9 - Hypotension, unspecified (6) Bipolar disorder Current Visit: Yes Status: Acute (7) Obesity hypoventilation syndrome Current Visit: Yes Status: Chronic Brief History of Present Illness: CARMINE IS A HEMODIALYSIS PATIENT WHO HAS RENAL FAILURE FROM USE OF LITHIUM FOR BIPOLAR DISEASE. SHE ALSO HAS HTN, SEVERE PULMONARY HTN, SEVERE OBESITY, BACK PAIN ETC. SHE AFTER HD YESTERDAY CAME HOME TOOK BP PILLS AND BP DROPPED TOO LOW DOWN TO 70 SYSTOLIC. SHE HAS NO FEVER, CHILLS, NAUSEA, VOMITING OR BURNING IN URINATION. SHE HAS NO COUGH OR CHEST PAIN. CARMINE HAS DONE SOME BETTER WITH MERREM IV. SHE WILL GO TO LTAC FOR FURTHER IV. I ASKED DR. WINTERS TO LOOK INTO CHANING THE CATHETER AND HE WILL LOOK INTO IT. 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 Vital Signs/Physical Exam: Temp Pulse Resp BP Pulse Ox 98.3 F 85 20 140/67 96 11/16/18 12:08 11/16/18 12:08 11/16/18 12:08 11/16/18 12:08 11/16/18 12:08 Laboratory Data at Discharge: WBC 6.8 K/uL (4.3-10.9) D 11/16/18 06:17 Hgb 9.9 g/dL (12.0-15.0) L 11/16/18 06:17 Hct 31.3 % (36.0-45.0) L 11/16/18 06:17 Plt Count 176 K/uL (152-406) 11/16/18 06:17 PT 13.3 SECONDS (9.5-12.5) H 11/08/18 23:29 INR 1.13 11/08/18 23:29 Sodium 139 mmol/L (136-145) 11/16/18 06:17 Potassium 4.0 mmol/L (3.5-5.1) 11/16/18 06:17 BUN 45 mg/dL (7-18) H 11/16/18 06:17 Creatinine 4.99 mg/dL (0.55-1.3) H 11/16/18 06:17 Glucose 99 mg/dL (74-106) 11/16/18 06:17 Phosphorus 5.2 mg/dL (2.5-4.9) H 11/09/18 09:58 Magnesium 2.0 mg/dL (1.8-2.4) 11/09/18 09:58 Total Bilirubin 0.4 mg/dL (0.2-1.0) 11/09/18 09:58 AST 13 U/L (15-37) L 11/09/18 09:58 ALT 9 U/L (12-78) L 11/09/18 09:58 Alkaline Phosphatase 83 U/L (45-117) 11/09/18 09:58 Troponin I < 0.02 ng/mL (0.0-0.045) 11/09/18 05:48 Lipase 167 U/L (73-393) 11/08/18 23:29 Home Medications: Adcirca 20mg 2 tab PO BEDTIME 09/03/18 Allopurinol [Zyloprim*] 100 mg PO BEDTIME 09/03/18 Ascorbic Acid [Vitamin C] 500 mg PO DAILY 09/03/18 Aspirin [Aspir-Low] 81 mg PO DAILY 09/03/18 Calcium Carbonate [Calcium] 2 tab PO DAILY 09/03/18 Cholecalciferol (Vitamin D3) [Vitamin D3] 2,000 unit PO DAILY 09/03/18 Cyclosporine [Restasis] 1 drop EACH EYE BID 09/03/18 Divalproex Sodium [Depakote] 1,000 mg PO BEDTIME 09/03/18 Divalproex Sodium [Depakote] 500 mg PO DAILY 09/03/18 Esomeprazole Mag Trihydrate [Nexium] 40 mg PO DAILY 09/03/18 Icosapent Ethyl [Vascepa] 2 cap PO BID 09/03/18 Ipratropium [Atrovent 0.03% (21MCG)/Flasher Nasal*] 2 sprays NS TID 09/03/18 Levothyroxine Sodium 100 mcg PO DAILY 09/03/18 Loratadine [Claritin*] 10 mg PO BEDTIME 09/03/18 Multivitamin [Multivitamins] 1 each PO BEDTIME 09/03/18 Nebivolol HCl [Bystolic*] 40 mg PO DAILY 09/03/18 Olopatadine HCl [Patanase] 2 spray NS BID 09/03/18 Rosuvastatin Calcium [Crestor] 40 mg PO BEDTIME 09/03/18 Tolterodine Tartrate [Detrol LA*] 4 mg PO BEDTIME 09/03/18 Tramadol HCl [Ultram] 50 mg PO Q8H PRN 09/03/18 Eszopiclone 3 mg PO BEDTIME 11/09/18 Fluticasone [Flonase 50mcg Nasal Flasher] 2 sprays NS DAILY 11/11/18 Followup: Michael Villegas MD [Primary Care Provider] - (call to schedule appointment)
[2018-11-16] MEDS: Meropenem 500 MG in NA CHLORIDE 0.9% 100 ML IV SCH (17:38)
[2018-11-16 17:41] VITALS: BP 130/64; TEMP 97.9
== END 2018-11-16 19:11 | DRG 871 ==
LOC: ER 21:22 → ERHOLD 11-09 01:40 → 3RD-ICU 11-09 02:10 → 4TH 11-12 20:30
PROVIDERS: ADMIT Internal Medicine; ATTEND Internal Medicine
PROC: 5A1D70Z Performance of Urinary Filtration, Intermittent, Less than 6 Hours Per Day (ICD-10-PCS; 2018-11-10)
PROC: 5A1D70Z Performance of Urinary Filtration, Intermittent, Less than 6 Hours Per Day (ICD-10-PCS; 2018-11-12)
PROC: 5A1D70Z Performance of Urinary Filtration, Intermittent, Less than 6 Hours Per Day (ICD-10-PCS; principal; 2018-11-14)
PROC: 5A1D70Z Performance of Urinary Filtration, Intermittent, Less than 6 Hours Per Day (ICD-10-PCS; 2018-11-15)
DX: A41.9 Sepsis, unspecified organism (principal); R65.21 Severe sepsis with septic shock; N18.6 End stage renal disease; J44.1 Chronic obstructive pulmonary disease with (acute) exacerbation; N39.0 Urinary tract infection, site not specified; E66.2 Morbid (severe) obesity with alveolar hypoventilation; I12.0 Hypertensive chronic kidney disease with stage 5 chronic kidney disease or end stage renal disease; J96.12 Chronic respiratory failure with hypercapnia; J96.11 Chronic respiratory failure with hypoxia; R40.4 Transient alteration of awareness; I27.20 Pulmonary hypertension, unspecified; G47.30 Sleep apnea, unspecified; K21.9 Gastro-esophageal reflux disease without esophagitis; E03.9 Hypothyroidism, unspecified; E78.5 Hyperlipidemia, unspecified; R41.0 Disorientation, unspecified; F31.9 Bipolar disorder, unspecified; N25.0 Renal osteodystrophy; F29 Unspecified psychosis not due to a substance or known physiological condition; D63.1 Anemia in chronic kidney disease; Z99.2 Dependence on renal dialysis; Z68.37 Body mass index [BMI] 37.0-37.9, adult
CPT/HCPCS: 36415; 51702; 71045; 71250; 74176; 80048; 80053; 80076; 81003; 82024; 82533; 83690; 83735; 83880; 84100; 84145; 84484; 85025; 85610; 86317; 86704; 86706; 86850; 86900; 86901; 87040; 87077; 87086; 87088; 87186; 87340; 90935; 93005; 94760; 96365; 96367; 97110; 97116; 97163; 97530; 99285; J0692; J0696; J0834; J1265; J1644; J1940; J2405; J2997; J3370; J3486; J7030; Q4081

== ENCOUNTER 2018-12-05 17:35 | Emergency (ER) | payer OTHER ==
--- OUTSIDE RECORDS SUMMARY | 2018-12-05 17:40 | XMS REPORT | Clinical Summary ---
:1960 Author Organization [facility] Address [address] [place] [address] Care Team Providers Name Role Phone Asked, [...] (DEPAKOTE) 500 MG mouth nightly. EC tablet fenofibrate Take 150 mg by 0 10/06/19 Discontinued (LOFIBRA) 160 MG mouth daily. 19 tablet apixaban (ELIQUIS) Take 1 tablet 60 tablet 0 11/02/2017 12/07/19 Discontinued 2.5 mg tablet (2.5 mg total) by 18 mouth 2 (two) times a day for 30 days. dextrose 10 % Infuse 40 mL/hr 500 mL 0 11/02/2017 12/07/19 Discontinued infusion into a venous 18 catheter continuously as needed (bedside glucose LESS than 70 mg/dL) for up to 30 days. polyethylene glycol Take 17 g by 0 11/02/2017 12/07/19 Discontinued (MIRALAX) 17 gram mouth daily as 18 packet needed for constipation for up to 30 days. nebivolol Take 5 mg by 0 [...] mouth nightly. 18 240 MG SR tablet traMADol (ULTRAM) Take 50 mg by 0 [...] 4 (four) 19 tablet times a day. midodrine Take 1 tablet (10 90 tablet 0 10/29/2018 11/29/19 (PROAMATINE) 10 MG mg total) by 19 tablet mouth 3 (three) times a day for 30 days. acetaminophen Take 2 tablets 0 10/29/2018 11/29/19 (TYLENOL) 325 MG (650 mg total) by 19 tablet mouth every 4 (four) hours as needed for mild pain or fever for up to 30 days. clonAZEPAM Take 1 tablet 0 10/29/2018 11/29/19 (KlonoPIN) 0.5 MG (0.5 mg total) by 19 tablet mouth nightly as needed for anxiety for up to 30 days. ondansetron ODT Take 1 tablet (4 0 10/29/2018 11/29/19 (ZOFRAN-ODT) 4 MG mg total) by 19 disintegrating mouth every 8 tablet (eight) hours as needed for nausea or vomiting for up to 30 days. ipratropium-albuter Take 3 mL by 360 mL 0 10/29/2018 11/29/19 ol (DUO-NEB) nebulization 19 0.5-2.5 mg/3 mL every 6 (six) nebulizer hours for 30 days. polyethylene glycol Take 17 g by 30 packet 0 10/30/2018 11/30/19 (MIRALAX) 17 gram mouth daily for 19 packet 30 days. fluticasone 1 spray (50 mcg 15.8 mL 0 10/29/2018 11/29/19 propionate total) by Each 19 (FLONASE) 50 Nare route 2 mcg/actuation nasal (two) times a day spray for 30 days. epoetin elvira-epbx Infuse 13,000 0 10/29/2018 11/29/19 10,000 unit/mL Units into a 19 solution 10,000 venous catheter 3 Units, epoetin (three) times a elvira-epbx 3,000 week for 30 days. unit/mL solution 3,000 Units injection Active Problems Problem Noted Date Shortness of [...] Berhane Starr MD ventral hernia (Primary Dx) 11/23/2017 - Hospital Encounter General Surgery Crispin Small bowel 12/06/2017 Berhane Starr MD obstruction Sergo [place] (Primary Dx) MD Adán Daniel Varun, MD after 12/04/2017 Social History Tobacco Use Types Packs/Day Years [...] Health Maintenance Due Date Last Done Comments BREAST CANCER SCREENING 2008 COLON CANCER SCREENING 2008 SHINGLES VACCINES (#1) 2008 INFLUENZA VACCINE 01/31/2019 Implants Implanted Type Area Patient Relations Coordinator Device Shelf Model / Identifier Expiration Serial / Date Lot Set Cathztn Hmodial Lngtrm Accs 15fr 28cm Edge Simplicity - [id number] Central N/A: N/A ARROW 04/01/2021 CS [id number] IM / Implanted: 10/25/2018 (Quantity not on file) Venous [employer]ATIONAL / Catheters INC [id number] Clip Ligtng Weck Hemoclip Plus W/ Tape Ti Med Lg - [id number] Medical N/A: N/ A WECK CLOSURE 04/18/2022 [id number] / Implanted: Qty: 1 on 11/28/2017 by Berhane Roa MD Clips for SYSTEMS / Internal Use Clip Ligtng Weck Hemoclip Plus W/ Tape Ti Med - [id number] Medical N/A: N/A TELEFLEX MEDICAL 04/18/2022 [id number] / Implanted: Qty: 1 on 11/28/2017 by Berhane Roa MD Clips for / Internal Use Clip Ligtng Weck Hemoclip Plus W/ Tape Ti Lg - [id number] Medical N/A: N/A TELE[employer]LEX MEDICAL 04/18/2022 [id number] / Implanted: Qty: 1 on 11/28/2017 by Berhane Roa MD Clips for / Internal Use Mesh Hrnia Rpr Sepramesh 8x12in Rectngl Cmpst Ppe Ventrl - [id number] Surgical N/A: DAV[employer] INC 07/30/2018 [id number] / Implanted: 11/28/2017 (Quantity not on file) Mesh or Abdomen, / Tissue Middle [id number] Barrier Quadrant/No Products n Specific Procedures Procedure [...] procedure are in the results section. AFB CULTURE Routine 10/08/2018 6:45 Results for this [...] are in SPECTRAL COLOR DOPPLER the results (14446) section. HEPATITIS B SURFACE STAT 10/06/2018 2:30 [...] procedure are in the results section. after 12/04/2017 Results Estimated GFR (10/27/2018 8:25 AM CDT)Only the most recent of15 resultswithin the time period is included. Estimated GFR 11 (A) mL/min/1.73 [facility] Comment: m2 HOSPITAL CatergoryUnitsInterpretation G1 >=90 Normal or high G2 60-89Mildly decreased B6p41-28Lcdxuu to moderately decreased C7m83-46Jqluvoaljj to severely decreased G4 15-29Severely decreased G5 <15Kidney failure The eGFR was calculated using the Chronic Kidney Disease Epidemiology Collaboration (CKD-EPI) equation. Interpretation is based on recommendations of the National Kidney Foundation-Kidney Disease Outcomes Quality Initiative (NKF-KDOQI) published in 2014. Specimen Plasma specimen Performing Organization Address City/State/Zipcode Phone Number [facility] DEPARTMENT OF PATHOLOGY AND [address] [place] [address] GENOMIC MEDICINE [facility] [address] [place] [address] CBC with platelet and differential (10/27/2018 8:25 AM CDT)Only the most recent of15 resultswithin the time period is included. Pathologist [facility] WBC 3.85 (L) 4.50 - 11.00 [facility] k/uL HOSPITAL RBC 3.06 (L) 4.20 - 5.50 [facility] m/uL [facility] HGB 9.3 (L) 12.0 - 16.0 [facility] g/dL [facility] HCT 31.7 (L) 37.0 - 47.0 % [facility] MCV 103.6 (H) 82.0 - 100.0 [facility] MCH 30.4 27.0 - 34.0 pg [facility] MCHC 29.3 (L) 31.0 - 37.0 [facility] RDW - SD 63.9 (H) 37.0 - 55.0 fL [facility] MPV 9.8 8.8 - 13.2 fL [facility] Platelet count 168 150 - 400 k/uL [facility] Nucleated RBC 0.80 /100 WBC [facility] Neutrophils 55.6 39.0 - 69.0 % [facility] Lymphocytes 27.8 25.0 - 45.0 % [facility] Monocytes 13.0 (H) 0.0 - 10.0 % [facility] Eosinophils 2.3 0.0 - 5.0 % [facility] Basophils 0.5 0.0 - 1.0 % [facility] Immature granulocytes 0.8Comment: 0.0 - 1.0 % [facility] "Immature HOSPITAL granulocytes" (promyelocytes , myelocytes, metamyelocytes ) Specimen Blood Performing Organization Address City/[facility] Phone Number [facility] DEPARTMENT OF PATHOLOGY AND [address] [place] [address] [address] Basic metabolic panel (10/27/2018 8:25 AM CDT)Only the most recent of17 resultswithin the time period is included. Sodium 148 135 - 148 mEq/L [facility] Potassium 4.1 3.5 - 5.0 mEq/L [facility] Chloride 104 98 - 112 mEq/L [facility] CO2 25 24 - 31 mEq/L [facility] Anion gap 19@ANIO (H) 7 - 15 mEq/L [facility] BUN 48 (H) 8 - 23 mg/dL [facility] Creatinine 4.25 (H) 0.50 - 0.90 mg/dL [facility] Glucose 106 (H) 65 - 99 mg/dL [facility] Calcium 9.2 8.8 - 10.2 mg/dL [facility] Specimen Plasma specimen Performing Organization Address City/[facility] Hospitalcode Phone Number [facility] DEPARTMENT OF PATHOLOGY AND [address] [place] [address] [address] IR Non-Tunneled Central Line Removal (10/25/2018 3:34 PM CDT) Specimen Narrative Performed At Procedure: Removal of temporary [...] catheter. Blood Loss: Less than 1 mL [facility]-[id number] Procedure Note Interface, Radiology Results Incoming - 10/25/2018 3:48 [...] catheter. Blood Loss: Less than 1 mL [facility]-[id number] Performing Organization Address City/State/Zipcode Phone Number [facility] [address] [place] [address] IR Tunneled Dialysis Catheter Placement (10/25/2018 3:34 PM CDT)Only the most recent of2 resultswithin the time period is included. Specimen Narrative Performed At Procedure: Placement of tunneled dialysis catheter [facility] Clinical History: End-stage renal disease Sedation: Versed and fentanyl were utilized for monitored conscious sedation during the procedure. The patient was transferred to the recovery room at the end of the procedure for further monitoring. Vfyk-do-mpbc time 21 minutes Anesthesia: Local Radiation dose: [...] was brought through the tunnel. A 5 Bots[place]an catheter was placed over the initially placed [...] cava. Blood Loss: Less than 1 mL [facility]-[id number] Procedure Note Interface, Radiology Results Incoming - 10/25/2018 3:47 PM CDT Procedure: Placement of tunneled dialysis catheter Clinical History: End-stage renal disease Sedation: Versed and fentanyl were utilized for monitored conscious sedation during the procedure. The patient was transferred to the recovery room at the end of the procedure for further monitoring. Oqla-oe-gpte time 21 minutes Anesthesia: Local Radiation dose: [...] was brought through the tunnel. A 5 Botswanan catheter was placed over the initially placed [...] cava. Blood Loss: Less than 1 mL [facility]-[id number] Performing Organization Address City/State/Zipcode Phone Number [facility] [address] [place] [address] Transfuse RBC (10/22/2018 10:33 PM CDT)Only the most recent of7 resultswithin the time period is included.Smear review (10/22/2018 5:00 AM CDT)Only the most recent of2 resultswithin the time period is included. Platelet slide review Mary Ellen adequate [facility] Anisocytosis Moderate [facility] Polychromasia Moderate [facility] Ovalocytes Moderate [facility] Specimen Performing Organization Address City/State/Zipcode Phone Number [facility] DEPARTMENT OF PATHOLOGY AND [address] [place] [id number] [place] [phone] Prepare RBC, 2 Units (10/22/2018 5:00 AM CDT) Product name Red Blood Cells [facility], Leukored [facility] Unit number [id number] [facility] Product code [id number] [facility] Dispense status Transfused [facility] Blood expiration [id number] [facility] Blood type code 7300 [facility] Blood type B POSITIVE [facility] Product name Red Blood Cells [place] [address], Leukored HOSPITAL Unit number [id number] [facility] Product code [id number] [facility] Dispense status Transfused [facility] Blood expiration [id number] [facility] Blood type code 7300 [facility] Blood type B POSITIVE [facility] Specimen Blood Performing Organization Address City/[facility] Phone Number [facility] DEPARTMENT OF PATHOLOGY AND [address] [place] [phone] Type and screen (10/22/2018 5:00 AM CDT) ABO grouping B [facility] Rh type POS [facility] Antibody screen (gel) NEG [facility] Specimen Blood Performing Organization Address City/[facility] Phone Number [facility] DEPARTMENT OF PATHOLOGY AND [address] [place] [phone] Blood culture, aerobic & anaerobic (10/17/2018 7:40 AM CDT)Only the most recent of6 resultswithin the time period is included. Blood culture No growth after 5 days of incubation. [facility] isolate Comment: HOSPITAL Specimen Information Specimen Source: Blood Specimen Site: Hand Left Specimen Blood Performing Organization Address City/State/Zipcode Phone Number [facility] DEPARTMENT OF PATHOLOGY AND [address] [place], [address] [address] Magnesium level (10/17/2018 3:30 AM CDT)Only the most recent of5 resultswithin the time period is included. Magnesium 1.9 1.6 - 2.4 mg/dL [facility] Specimen Plasma specimen Performing Organization Address City/[facility]/Zipcode Phone Number [facility] DEPARTMENT OF PATHOLOGY AND [address] [place] [address] POC glucose (10/16/2018 8:37 PM CDT)Only the most recent of15 resultswithin the time period is included. POC glucose 160 (H) 65 - 99 mg/dL [facility] Comment: HOSPITAL [facility] Notified RN Meter ID: [id number] Textile Pin Worker: Rylan Mackay Specimen Performing Organization Address City/[facility]code Phone Number [facility] DEPARTMENT OF PATHOLOGY AND [address] [place] [address] IR Tunneled Dialysis Catheter Removal (10/16/2018 5:43 PM CDT) Specimen Narrative Performed At EXAMINATION:IR TUNNELED DIALYSIS CATHETER [...] (mL): Less than 10 Standardized report: [email or web address] [facility]-[id number] Procedure Note [facility], Radiology Results Incoming - 10/16/2018 6:03 [...] (mL): Less than 10 Standardized report: [email or web address]_v2 [facility]-[id number] Performing Organization Address City/State/Zipcode Phone Number [facility] [address] [place] [address] CBC hemogram (10/16/2018 10:00 AM CDT)Only the most recent of2 resultswithin the time period is included. WBC 3.99 (L) 4.50 - 11.00 k/uL [facility] RBC 2.25 (L) 4.20 - 5.50 m/uL [facility] HGB 7.1 (L) 12.0 - 16.0 g/dL [facility] HCT 23.3 (L) 37.0 - 47.0 % [facility] MCV 103.6 (H) 82.0 - 100.0 fL [facility] MCH 31.6 27.0 - 34.0 pg [facility] MCHC 30.5 (L) 31.0 - 37.0 g/dL [facility] RDW - SD 55.3 (H) 37.0 - 55.0 fL [facility] MPV 9.1 8.8 - 13.2 fL [facility] Platelet count 129 (L) 150 - 400 k/uL [facility] Nucleated RBC 0.00 /100 WBC [facility] Specimen Performing Organization Address City/[facility]/Zipcode Phone Number [facility] DEPARTMENT OF PATHOLOGY AND [address] [place] [phone] Phosphorus level (10/16/2018 5:10 AM CDT)Only the most recent of4 resultswithin the time period is included. Phosphorus 2.6 2.4 - 4.5 mg/dL [facility] Specimen Plasma specimen Performing Organization Address City/[facility] Phone Number [facility] DEPARTMENT OF PATHOLOGY AND [address] [place] [phone] Arterial blood gas (10/15/2018 10:38 PM CDT)Only the most recent of6 resultswithin the time period is included. pH, arterial 7.43 7.35 - 7.45 [facility] pCO2, arterial 42 35 - 45 mmHg [facility] pO2, arterial 154 (H) 80 - 90 mmHg [facility] Bicarbonate, 27.0 21.0 - 28.0 [facility] mmol/L HOSPITAL Base excess, 3 (H) -2 - 2 mEq/L [facility] O2 saturation, 100 95 - 100 % [facility] Specimen Blood Performing Organization Address [facility] Phone Number [facility] DEPARTMENT OF PATHOLOGY AND [address] [place] [phone] Vancomycin level, random (10/15/2018 4:41 AM CDT)Only the most recent of2 resultswithin the time period is included. Vancomycin, random 21.1 ug/mL [facility] Specimen Serum Performing Organization Address [facility] Hospitalcosd Phone Number [facility] DEPARTMENT OF PATHOLOGY AND [address] [place] [phone] XR Chest 1 Vw Portable (10/14/2018 8:28 AM CDT)Only the most recent of4 resultswithin the time period is included. Specimen Narrative Performed At EXAMINATION:XR CHEST 1 VW PORTABLE [facility] CLINICAL HISTORY:Dyspnea COMPARISON:10 October 2018 IMPRESSION: Left IJ catheter remains in position.There is continuing cardiomegaly mediastinal widening.Bilateral perihilar infiltrate is more extensive on the left where there is also pleural effusion. [facility]-[id number] Procedure Note Interface, Radiology Results Incoming - 10/14/2018 8:52 AM CDT EXAMINATION: XR CHEST 1 VW PORTABLE CLINICAL HISTORY: Dyspnea COMPARISON: 10 October 2018 IMPRESSION: Left IJ catheter remains in position. There is continuing cardiomegaly mediastinal widening. Bilateral perihilar infiltrate is more extensive on the left where there is also pleural effusion. [facility]-[id number] Performing Organization Address City/[facility]/Zipcode Phone Number [facility] [address] [place] [address] Lactic acid level, SEPSIS - Now and repeat 2x every 3 hours (10/14/2018 5:10 AM CDT)Only the most recent of2 resultswithin the time period is included. Lactic acid 0.7 0.5 - 2.2 mmol/L [facility] Specimen Plasma specimen Performing Organization Address City/[facility] Phone Number [facility] DEPARTMENT OF PATHOLOGY AND [address] [place] [address] GENOMIC MEDICINE [facility] [address] [place] [phone] XR Forearm 2 Vw Right (10/11/2018 2:01 PM CDT) Specimen Narrative Performed At EXAMINATION:XR FOREARM 2 VW RIGHT [facility] CLIN[facility]:fall wtih persistent pain R forearm COMPARISON:none. IMPRESSION: 1.No displaced fractures or dislocations. [facility]-[id number] Procedure Note Interface, Radiology Results Incoming - 10/11/2018 3:58 PM CDT EXAMINATION: XR FOREARM 2 VW RIGHT CLINICAL HISTORY: fall wtih persistent pain R forearm COMPARISON: none. IMPRESSION: 1. No displaced fractures or dislocations. [facility]-[id number] Performing Organization Address City/[facility]/Zipcode Phone Number [facility] [address] [place] [address] Gram stain (10/10/2018 6:48 PM CDT)Only the most recent of3 resultswithin the time period is included. Gram stain result Few WBC's [facility] No organisms seen HOSPITAL Comment: Specimen Information Specimen Source: Urine Specimen Site: Catheterized Specimen Urine - Catheterized Performing Organization Address City/State/Zipcode Phone Number [facility] DEPARTMENT OF PATHOLOGY AND [address] [place] [address] GENOMIC MEDICINE [facility] [address] [place] [address] Urine culture (10/10/2018 6:48 PM CDT)Only the most recent of2 resultswithin the time period is included. Urine culture Escherichia coli [facility] isolate 10-5 cfu/ml HOSPITAL The performance characteristics of this assay on this isolate were validated by the Microbiology Laboratory at [facility].This source has not been approved by the [...] MATTEO <=0.5 mcg/mL: Susceptible Performing Organization Address City/[facility] Phone Number [facility] DEPARTMENT OF PATHOLOGY AND [address] [place] [phone] [place] [phone] Urinalysis screen and microscopy, with reflex to culture (10/10/2018 5:28 PM CDT)Only the most recent of2 resultswithin the time period is included. Specimen site Catheterized [facility] Color, UA Red [facility] Appearance, UA Turbid [facility] Specific gravity, 1.021 1.001 - 1.035 [facility] pH, UA 5.0 5.0 - 8.5 [facility] Protein, UA 2+ (A) Negative [facility] Glucose, UA Negative Negative [facility] Ketones, UA Negative Negative [facility] Bilirubin, UA Negative Negative [facility] Blood, UA Moderate (A) Negative [facility] Nitrite, UA Negative Negative [facility] Urobilinogen, UA <2.0 <2.0 [facility] Leukocyte esterase, Moderate (A) Negative [facility] WBC, UA >180 (H) 0 - 4 /HPF [facility] RBC, UA 8 (H) 0 - 5 /HPF [facility] Bacteria, UA Moderate (A) None seen [facility] WBC clumps, UA Many (A) [facility] Yeast, UA None seen [facility] Yeast with None seen [facility] pseudohyphae, HOSPITAL Specimen Urine Performing Organization Address City/[facility] Phone Number [facility] DEPARTMENT OF PATHOLOGY AND [address] [place] [phone] [place] [address] Respiratory pathogen panel (10/09/2018 4:25 PM CDT) Respiratory Negative for all pathogens tested: [place] pathogen panel Negative for Adenovirus [facility] Negative for Coronavirus HKU1 HOSPITAL Negative for Coronavirus NL63 Negative for Coronavirus [...] Specimen Nares - Right Performing Organization Address City/[facility] Phone Number [facility] DEPARTMENT OF PATHOLOGY AND [address] [place] [address] Influenza antigen test, reflex negative to RPP (10/09/2018 4:25 PM CDT) Influenza antigen Negative for Influenza A/B antigen. [facility] Comment: HOSPITAL Specimen Information Specimen Source: Nares Specimen Site: Right Specimen Nares - Right Performing Organization Address City/[facility] Phone Number [facility] DEPARTMENT OF PATHOLOGY AND [address] [place] [phone] XR Chest 1 Vw (10/08/2018 7:35 PM CDT) Specimen Narrative Performed At EXAMINATION:XR CHEST 1 VW [...] No pneumothorax. No other significant interval change. [facility]-[id number] Procedure Note Hm Interface, Radiology Results Incoming [...] No pneumothorax. No other significant interval change. [facility]-[id number] Performing Organization Address [facility] Phone Number LUCY [address] [place] [address] US Thoracentesis With Imaging (10/08/2018 6:55 PM CDT) Specimen Narrative Performed At EXAMINATION:US THORACENTESIS WITH IMAGING [facility] CLINICAL HISTORY: shortness of breathhypoxemialeft sided effusion CONSENT: Risks, benefits, and alternatives were discussed. Written informed consent was obtained prior to the procedure. ANESTHESIA: Lidocaine Local. TECHNIQUE:Patient was placed in a seated upright position. Skin was sterilely prepped and draped. Lidocaine was infiltrated into the soft tissues for local anesthesia. Using ultrasound guidance, a 5 [place] One-Step catheter was advanced over a trocar into the left pleural space. 0.6 L of bloody pleural fluid was removed. Patient tolerated the procedure well without immediate complication and left the room in stable condition. EBL: 0 ml. SPECIMENS: Specimen was sent if ordered. ASSISTANTS: None. IMPRESSION:Uncomplicated ultrasound-guided left thoracentesis. Procedure Note [facility], Radiology Results Incoming - 10/09/2018 6:24 [...] local anesthesia. Using ultrasound guidance, a 5 [place] One-Step catheter was advanced over a trocar into the left pleural space. 0.6 L of bloody pleural fluid was removed. Patient tolerated the procedure well without immediate complication and left the room in stable condition. EBL: 0 ml. SPECIMENS: Specimen was sent if ordered. ASSISTANTS: None. IMPRESSION: Uncomplicated ultrasound-guided left thoracentesis. Performing Organization Address [facility] Phone Number LUCY [address] [place] [address] AFB culture (10/08/2018 6:45 PM CDT) AFB culture No growth after 6 weeks of incubation. MARGARITO ARAMBULA isolate Comment: HOSPITAL Specimen Information Specimen Source: Pleural fluid Specimen Site: Chest, left Specimen Pleural fluid - Chest, left Performing Organization Address City/[facility]/Zipcode Phone Number [facility] DEPARTMENT OF PATHOLOGY AND [address] [place] [phone] [address] Aerobic culture (10/08/2018 6:45 PM CDT) Aerobic culture No growth after 3 days. MARGARITO BETTENCOURTIST isolate Comment: HOSPITAL Specimen Information Specimen Source: Pleural fluid Specimen Site: Chest, left Specimen Pleural fluid - Chest, left Performing Organization Address [facility] Phone Number [facility] DEPARTMENT OF PATHOLOGY AND [address] [place] [phone] [place] [phone] AFB stain (10/08/2018 6:45 PM CDT) AFB stain No acid fast bacilli (AFB) seen. MARGARITO ARAMBULA Comment: HOSPITAL Specimen Information Specimen Source: Pleural fluid Specimen Site: Chest, left Specimen Pleural fluid - Chest, left Performing Organization Address [facility] Phone Number [facility] DEPARTMENT OF PATHOLOGY AND [address] [place] [phone] [place] [address] Anaerobic culture (10/08/2018 6:45 PM CDT) Anaerobic culture No anaerobic organisms isolated. MARGARITO ARAMBULA isolate Comment: HOSPITAL Specimen Information Specimen Source: Pleural fluid Specimen Site: Chest, left Specimen Pleural fluid - Chest, left Performing Organization Address City/[facility] Phone Number [facility] DEPARTMENT OF PATHOLOGY AND [address] [place] [phone] [address] Cell count and differential, body fluid (10/08/2018 6:45 PM CDT) Misc fluid type Pleural [facility] Color, fluid Red [facility] Appearance, fluid Hazy [facility] RBC, fluid 86,000 /CMM [facility] Nucleated cells, fluid 1,965 /CMM [facility] Fluid mononuclear cell See Diff [facility] Neutrophils, fluid 17 % [facility] Lymphocytes, fluid 14 % [facility] Mesothelial cells, 8 % [facility] Macrophages, fluid 61 % [facility] Specimen Fluid Performing Organization Address City/State/[facility] Phone Number [facility] DEPARTMENT OF PATHOLOGY AND [address] [place] [phone] [place] [phone] Protein, misc fluid (10/08/2018 6:45 PM CDT) Fluid type Pleural [facility] Protein, fluid 4.0 g/dL [facility] Comment: HOSPITAL Analysis performed on Eliana 8000 analyzer. This is not an approved methodology for this specimen type;accuracy and clinical significance uncertain. Specimen Fluid Performing Organization Address City/[facility] Phone Number [facility] DEPARTMENT OF PATHOLOGY AND [address] [place] [phone] [place] [phone] LDH, misc fluid (10/08/2018 6:45 PM CDT) Fluid type Pleural [facility] LDH, fluid 255 U/L [facility] Comment: HOSPITAL Analysis performed on Eliana 8000 analyzer. This is not an approved methodology for this specimen type;accuracy and clinical significance uncertain. Specimen Fluid Performing Organization Address City/[facility] Phone Number [facility] DEPARTMENT OF PATHOLOGY AND [address] [place] [phone] [place] [address] Glucose level, misc fluid (10/08/2018 6:45 PM CDT) Fluid type Pleural [facility] Glucose, fluid 110 mg/dL [facility] Comment: HOSPITAL Analysis performed on Eliana 8000 analyzer. This is not an approved methodology for this specimen type;accuracy and clinical significance uncertain. Specimen Fluid Performing Organization Address City/State/Zipcode Phone Number [facility] DEPARTMENT OF PATHOLOGY AND [address] [place] [phone] [address] pH, misc fluid (10/08/2018 6:45 PM CDT) Fluid type Pleural [facility] pH, fluid 8.00Comment: Reference [facility] ranges are not HOSPITAL established for Miscellanous specimens. Specimen Fluid Performing Organization Address City/[facility]/Zipcode Phone Number [facility] DEPARTMENT OF PATHOLOGY AND [address] [place] [address] [place] [phone] [place] [address] Lactic acid level (10/08/2018 12:30 PM CDT) Lactic acid 0.8 0.5 - 2.2 mmol/L [facility] Specimen Blood Performing Organization Address [facility]/Zipcode Phone Number [facility] DEPARTMENT OF PATHOLOGY AND [address] [place], [place] [phone] [place] [address] [address] [place] [address] CT Head Wo Contrast (10/08/2018 11:25 AM CDT) Specimen Narrative Performed At EXAMINATION: CT HEAD WO [...] intracranial abnormality identified. No significant interval appreciated. [id number] Procedure Note Interface, Radiology Results Incoming - [...] intracranial abnormality identified. No significant interval appreciated. [id number] Performing Organization Address City/State/Zipcode Phone Number LUCY [address] [place] [address] CT Chest Wo Contrast (10/08/2018 11:25 AM CDT) Specimen Narrative Performed At EXAMINATION:CT [facility]ST [facility] H[facility]:Shortness of breath, shortness of breath [...] hypertension. Clinical correlation. 4.Additional findings as above. [facility]-[id number] Procedure Note Interface, Radiology Results Incoming - 10/08/2018 12:06 PM [...] Clinical correlation. 4. Additional findings as above. [facility]-[id number] Performing Organization Address City/[facility] Phone Number [facility] [address] [place] [address] Cytology (non-gynecological) request (10/08/2018 7:49 AM CDT) [facility] DEPARTMENT OF PATHOLOGY AND GENOMIC MEDICINE Cytology See link below [facility] DEPARTMENT OF (non-gynecological) for PDF Lab PATHOLOGY AND report Report GENOMIC MEDICINE Result status This is Final [facility] DEPARTMENT OF Report for PATHOLOGY AND [id number] GENOMIC MEDICINE Specimen Performing Organization Address [facility] Phone Number [facility] DEPARTMENT OF PATHOLOGY AND [address] [place] [address] GENOMIC MEDICINE Echocardiogram complete w contrast and 3D if needed (10/07/2018 10:04 AM CDT) Specimen Narrative Performed At [facility] Echocardiography Report [address] [place] [address] [address] [address] Pat.Name:FANNIE DELACRUZ Pat.ID:[id number] .Date: 10/07/2018Refer.MD:PREETI WILL MD Exam Time: 8:14:00 AMStudy Type:Routine Echo Height:64inWeight: 225lb BSA: 2.06 m2 DOBAge:1960,58Y Sex: FEMALEBP:89/49 HR:81 bpm Sonogrphr: Liliane Corado [facility]. Stat.:Inpatient Room:[facility] Study Status:Final Echo Event ID:[id number] Order ID:[id number] Reason for Study:SOB History / Clinical:Pulmonary Hypertension, [...] PA systolic pressure. MEASUREMENTS: 2D Parasternal Long [place] LVOT 2.2 cmAo An2.1 cm LA Ds4.8 cmAo Rtd 3 cm Index1.4 cm/m Left Ventricle LVIDd5 cm (3.6-5.2) Index2.4 cm/m LA Sng Plane LA Area 26.1 cm2(8.8-23.4) LA Vol74.4 ml Index36.1 ml/m LA LngAx 7.7 cm Signed 10/07/2018 12:50 PM Dario Morales MD Procedure Note Interface, Radiology Results In - 10/07/2018 12:51 PM CDT Echocardiography Report [address] [place] [address] Pat.Name: FANNIE DELACRUZ Pat.ID: [id number] St.Date: 10/07/2018 Refer.MD: PREETI WILL MD Exam Time: 8:14:00 AM Study Type:Routine Echo Height: 64in Weight: 225lb BSA: 2.06 m2 Age: 10 1960,58Y Sex: FEMALE BP: 89/49 HR: 81 bpm Sonogrphr: STEPHENIE Kessler Pat. Stat.:Inpatient Room: [facility] Study Status:Final Echo Event ID:[id number] Order ID: [id number] Reason for Study:SOB History / Clinical:Pulmonary Hypertension, [...] PA systolic pressure. MEASUREMENTS: 2D Parasternal Long [place] LVOT 2.2 cm Ao An 2.1 cm LA Ds 4.8 cm Ao Rtd 3 cm Index 1.4 cm/m Left Ventricle LVIDd 5 cm (3.6-5.2) Index 2.4 cm/m LA Sng Plane LA Area 26.1 cm2 (8.8-23.4) LA Vol 74.4 ml Index 36.1 ml/m LA LngAx 7.7 cm Signed 10/07/2018 12:50 PM Dario Morales MD Performing Organization Address City/[facility]/Zipcode Phone Number [facility] [address] [place] [address] Hepatitis B surface antigen (10/06/2018 2:30 PM CDT) Hepatitis B surface Non-reactive Non-reactive [facility] Specimen Blood Performing Organization Address City/[facility]/Zipcode Phone Number [facility] DEPARTMENT OF PATHOLOGY AND [address] [place] [address] GENOMIC MEDICINE [facility] [address] [place] [address] Prothrombin time with INR (10/06/2018 2:30 PM CDT) Prothrombin time 14.5 11.5 - 14.5 [facility] INR 1.2 [place] Comment: [facility] [facility] [employer] Normalized Ratio (INR) is a therapeutic HOSPITAL monitoring tool for patients who are stable on oral anticoagulant therapy. An INR of 2.0-3.0 is suggested for deep vein thrombosis/pulmonary embolism. Specimen Blood Performing Organization Address City/State/Zipcode Phone Number [facility] DEPARTMENT OF PATHOLOGY AND [address] [place] [address] GENOMIC MEDICINE [facility] [address] [place] [address] Comprehensive metabolic panel (10/06/2018 2:30 PM CDT) Sodium 143 135 - 148 [facility] mEq/L [facility] Potassium 4.5 3.5 - 5.0 [facility] mEq/L [facility] Chloride 101 98 - 112 mEq/L [facility] CO2 28 24 - 31 mEq/L [facility] Anion gap 14@ANIO 7 - 15 mEq/L [facility] BUN 61 (H) 8 - 23 mg/dL [facility] Creatinine 3.36 (H) 0.50 - 0.90 [facility] mg/dL [facility] Glucose 116 (H) 65 - 99 mg/dL [facility] Calcium 9.1 8.8 - 10.2 [facility] mg/dL [facility] Protein 6.3 6.3 - 8.3 g/dL [facility] Comment: HOSPITAL [place] 4.6-7.0 g/dL 1 week 4.4-7.6 g/dL 7 months-1year5.1-7.3 g/dL 1-2 years5.6-7.5 g/dL >3 years6.0-8.0 g/dL 18-150 6.3-8.3 g/dL Albumin 2.4 (L) 3.5 - 5.0 g/dL [facility] A/G ratio 0.6 (L) 0.7 - 3.8 [facility] Alkaline phosphatase 69 35 - 104 U/L [facility] AST 13 10 - 35 U/L [facility] ALT 7 5 - 50 U/L [facility] Total bilirubin <0.2 0.0 - 1.2 [facility] mg/dL [facility] Specimen Plasma specimen Performing Organization Address City/[facility] Phone Number [facility] DEPARTMENT OF PATHOLOGY AND [address] [place] [address] GENOMIC MEDICINE [facility] [address] [place] [address] ECG 12 lead (10/05/2018 9:44 PM CDT) Ventricular rate 88 [facility] MUSE Atrial rate 88 [facility] MUSE IA interval 140 [facility] MUSE QRSD interval 88 [facility] MUSE QT interval 358 [facility] MUSE QTC interval 433 [facility] MUSE P axis 1 52 [facility] MUSE QRS axis 1 67 [facility] MUSE T wave axis 79 [facility] MUSE EKG impression Normal sinus [facility] MUSE rhythm-Normal ECG-In automated comparison with ECG of 23-NOV-2017 14:52,-No significant change was found- Specimen Narrative Performed At Performing Organization Address City/[facility] Phone Number [facility] MUSE [address] [place] [address] Manual differential (12/06/2017 10:47 AM CDT)Only the most recent of2 resultswithin the time period is included. Manual differential PERFORMED [facility] DEPARTMENT OF PATHOLOGY AND GENOMIC MEDICINE Neutrophils 66.0 39.0 - 69.0 % [facility] DEPARTMENT OF PATHOLOGY AND GENOMIC MEDICINE Lymphocytes 14.0 (L) 25.0 - 45.0 % [facility] DEPARTMENT OF PATHOLOGY AND GENOMIC MEDICINE Monocytes 6.0 0.0 - 10.0 % [facility] DEPARTMENT OF PATHOLOGY AND GENOMIC MEDICINE Eosinophils 7.0 (H) 0.0 - 5.0 % [facility] DEPARTMENT OF PATHOLOGY AND GENOMIC MEDICINE Basophils 1.0 0.0 - 1.0 % [facility] DEPARTMENT OF PATHOLOGY AND GENOMIC MEDICINE Metamyelocytes 1 % [facility] DEPARTMENT OF PATHOLOGY AND GENOMIC MEDICINE Myelocytes 5 % [facility] DEPARTMENT OF PATHOLOGY AND GENOMIC MEDICINE Promyelocytes 0 % [facility] DEPARTMENT OF PATHOLOGY AND GENOMIC MEDICINE Platelet slide review Mary Ellen adequate [facility] DEPARTMENT OF PATHOLOGY AND GENOMIC MEDICINE Anisocytosis Moderate [facility] DEPARTMENT OF PATHOLOGY AND GENOMIC MEDICINE Polychromasia Moderate [facility] DEPARTMENT OF PATHOLOGY AND GENOMIC MEDICINE Basophilic stippling Occasional [facility] DEPARTMENT OF PATHOLOGY AND GENOMIC MEDICINE Ovalocytes Moderate [facility] DEPARTMENT OF PATHOLOGY AND GENOMIC MEDICINE Specimen Performing Organization Address City/State/[facility] Phone Number [facility] DEPARTMENT OF PATHOLOGY AND [address] [place] [phone] [place] [address] Potassium level (12/06/2017 10:47 AM CDT) [facility] Potassium 4.3 3.5 - 5.0 mEq/L [facility] DEPARTMENT OF PATHOLOGY AND GENOMIC MEDICINE Specimen Plasma specimen Performing Organization Address [facility] Phone Number [facility] DEPARTMENT OF PATHOLOGY AND [address] [place] [address] Estimated GFR (12/06/2017 4:00 AM CDT)Only the most recent of3 resultswithin the time period is included. [facility] GFR Non Af Amer 25 (A) mL/min/1.73 [facility] DEPARTMENT OF m2 PATHOLOGY AND GENOMIC MEDICINE GFR Af Amer 31 (A) mL/min/1.73 [facility] DEPARTMENT OF Comment: m2 PATHOLOGY AND Chronic kidney disease: <60 mL/min/1.73m2 GENOMIC MEDICINE Kidney failure: <15 mL/min/1.73m2 The estimated [...] Americans. Specimen Plasma specimen Performing Organization Address City/[facility] Phone Number [facility] DEPARTMENT OF PATHOLOGY AND [address] [place] [address] [facility] Gastrointestinal panel (12/04/2017 9:48 AM CDT) [facility] Gastrointestinal panel Negative for all pathogens tested: [facility] DEPARTMENT Negative for Salmonella OF PATHOLOGY Negative for Campylobacter AND GENOMIC Negative for Diarrheagenic E coli/Shigella MEDICINE Negative for Shiga-like toxin-producing E coli Negative [...] Nonpreserved Performing Organization Address City/State/Zipcode Phone Number [facility] DEPARTMENT OF PATHOLOGY AND [address] [place] [address] [phone] MEDICINE after 12/04/2017 Advance Directives Patient has advance care planning documents on file. For more information, please contact:Margarito Arambula[address] [place] [address]
--- OUTSIDE RECORDS SUMMARY | 2018-12-05 17:40 | XMS REPORT | Clinical Summary ---
:1960 Author Organization [facility] Address [address] [place] [address] Care Team Providers Name Role Phone Michael [...] Not on file Results Not on fileafter 12/04/2017 Insurance Payer Benefit Plan / Group Subscriber ID Type Phone Address [employer] - [employer] HMO POS QPOS xxxxxxxxx HMO/POS
--- NOTE | 2018-12-05 19:00 | RAD REPORT ---
[facility] 6[facility]45 pm CLINICAL HISTORY: Chest pain COMPARISON: September 16 FINDINGS: Left pleural effusion has decreased in size and is small Lungs appear clear of acute infiltrate. The heart is midline. The heart is moderately enlarged. Left sided venous catheter remains in place
[2018-12-05 20:54] LABS: Absolute Lymphocytes (CBC) 0.6 K/uL (0.7-4.9); Absolute Monocytes 0.6 K/uL (0.1-1.3); Absolute Neutrophil 4.8 K/uL (1.8-8.0); Basophils % 0.4 % (0-1.3); Eosinophils % 3.3 % (0-4.4); Hematocrit 32.7 % (36.0-45.0); Lymphocytes % 9.9 % (15.3-44.8); MPV 8.7 fL (7.6-11.3); Monocytes % 9.1 % (3.3-12.3)
[2018-12-05 22:07] LABS: ALT/SGPT 12 U/L (12-78); AST/SGOT 11 U/L (15-37); Albumin 2.9 g/dL (3.4-5.0); Alkaline Phosphatase 89 U/L (45-117); BUN Blood Urea Nitrogen 36 mg/dL (7-18); Bicarbonate 23 mmol/L (21-32); Bilirubin Direct 0.1 mg/dL (0-0.2); Bilirubin Total 0.4 mg/dL (0.2-1.0); Glucose Level 99 mg/dL (74-106); Potassium 4.7 mmol/L (3.5-5.1); Protein, Total 7.1 g/dL (6.4-8.2); Sodium Level 141 mmol/L (136-145); Troponin (Emerg Dept Use Only) < 0.02 ng/mL (0.0-0.045)
[2018-12-05] MEDS ORDERED: LORAZEPAM 1 MG TABLET ONE (22:44)
--- NOTE | 2018-12-05 22:51 | ER ---
Nurse's Notes [facility] Name: Fannie Plunkett Age: 58 yrs Sex: Female : 1960 Arrival Date: 12/05/2018 Time: 17:40 Bed 8 Private MD: Michael Villegas V Diagnosis: Chest pain, unspecified Presentation: 12/05 17:40 Presenting complaint: Patient states: vasile got chest tightness right after dialysis hj around 4 pm; pain is 8/10; reports nausea; reports non radiating pain;. Transition of care: patient was not received from another setting of care. Onset of symptoms was December 05, 2018. Risk Assessment: Do you want to hurt yourself or someone else? Patient reports no desire to harm self or others. Initial Sepsis Screen: Does the patient meet any 2 criteria? No. Patient's initial sepsis screen is negative. Does the patient have a suspected source of infection? No. Patient's initial sepsis screen is negative. Care prior to arrival: None. 17:40 Method Of Arrival: Ambulatory hj 17:40 Acuity: MODESTA 3 hj Historical: - Allergies: 17:42 Codeine; hj 17:42 Morphine; hj 17:42 NSAIDS; hj 17:42 Tape; hj - PMHx: 17:42 Anemia; Arthritis; bowel obstruction; Depression; GERD; Hyperlipidemia; Hypertension; hj Hypothyroidism; ibs; lymphedema; PAH; PULMONARY HYPERTENSION; Renal Disease; Sleep Apnea; - PSHx: 17:42 fistula on R arm; Hysterectomy; IVC filter; Joint replacement; Hernia repair; hj - Immunization history:: Adult Immunizations up to date. - Social history:: Smoking status: Patient/guardian denies using tobacco. - Ebola Screening: : No symptoms or risks identified at this time. Screenin:34 Abuse screen: Denies threats or abuse. Denies injuries from another. Nutritional lp1 screening: No deficits noted. Tuberculosis screening: No symptoms or risk factors identified. Fall Risk None identified. Assessment: 19:32 General: Appears in no apparent distress. Behavior is calm, cooperative, appropriate lp1 for age. Pain: Complains of pain in chest Pain does not radiate. Pain currently is 3 out of 10 on a pain scale. Pain began gradually. Neuro: Level of Consciousness is awake, alert, obeys commands, Oriented to person, place, time, situation. Cardiovascular: Patient's skin is warm and dry. Respiratory: Reports pain with respiration Respiratory effort is even, unlabored. GI: No signs and/or symptoms were reported involving the gastrointestinal system. : No signs and/or symptoms were reported regarding the genitourinary system. EENT: No signs and/or symptoms were reported regarding the EENT system. Derm: Skin is intact, Skin is dry, Skin is pale. Musculoskeletal: No deficits noted. 20:00 Reassessment: Lab unable to collect blood from patient. lp1 20:15 Reassessment: MARC Stinson at bedside with ultrasound for peripheral IV attempt. lp1 20:36 Reassessment: Patient appears in no apparent distress at this time. Patient states lp1 feeling better. 21:00 Reassessment: Lab at bedside for recollect. lp1 21:30 Reassessment: Patient appears in no apparent distress at this time. Patient and/or lp1 family updated on plan of care and expected duration. Pain level reassessed. Patient resting, eyes closed, respirations unlabored. 22:17 Reassessment: Provider at bedside to discuss results with patient and . lp1 23:47 Reassessment: Patient appears in no apparent distress at this time. Patient denies pain lp1 at this time. Patient states feeling better. Patient states symptoms have improved. Vital Signs: 17:42 BP 111 / 62; Pulse 108; Resp 16; Temp 99.5(O); Pulse Ox 98% on R/A; Weight 95.25 kg; Height 5 ft. 4 in. (162.56 cm); Pain 8/10; 19:36 BP 128 / 73; Pulse 106; Resp 20; Pulse Ox 98% on R/A; lp1 21:00 BP 143 / 79; Pulse 110; Resp 19; Pulse Ox 97% on R/A; lp1 22:30 BP 133 / 86; Pulse 124; Resp 20; Temp 99.5(O); Pulse Ox 98% on R/A; Pain 0/10; lp1 23:45 BP 127 / 98; Pulse 117; Resp 20; Pulse Ox 97% on R/A; Pain 0/10; lp1 17:42 Body Mass Index 36.04 (95.25 kg, 162.56 cm) ED Course: 17:40 Patient arrived in ED. ag5 17:41 Michael Villegas MD is Private Physician. ag5 17:41 Triage completed. hj 17:44 Arm band placed on right wrist. hj 17:53 EKG done, by circuit board repair technician. reviewed by Hao Todd MD. sm3 18:17 Quintin Stephens, CASSANDRA is PHCP. pm1 18:17 Hao Todd MD is Attending Physician. pm1 18:22 Kevin Borrego, RN is Primary Nurse. ae4 18:47 XRAY Chest (1 view) In Process Unspecified. EDMS 19:35 Patient has correct armband on for positive identification. panel monitor on. Pulse lp1 ox on. NIBP on. 19:35 No provider procedures requiring assistance completed. Patient maintains SpO2 lp1 saturation greater than 95% on room air. 20:30 Initial lab(s) drawn, by me, sent to lab. Inserted saline lock: 18 gauge in left fc antecubital area, using aseptic technique. Blood collected. 23:46 IV discontinued, No redness/swelling at site. Pressure dressing applied. lp1 Administered Medications: 22:34 Drug: Ativan 1 mg Route: PO; lp1 23:48 Follow up: Response: Marked relief of symptoms lp1 Outcome: 22:50 Discharge ordered by MD. pm1 23:47 Discharged to home via wheelchair, with significant other. lp1 23:47 Condition: good 23:47 Discharge instructions given to patient, significant other, Instructed on discharge instructions, follow up and referral plans. Demonstrated understanding of instructions, follow-up care. 23:48 Patient left the ED. lp1 Signatures: Dispatcher [employer] [facility] Shantell Cornejo RN RN Kaur Bernstein RN RN lp1 Be Puentes RN RN Quintin Stephens, CASSANDRA LANDSCAPE PAINTER pm1 Lorena Narayanan sm3 Margareth Mayes ag5 Kevin Borrego, RN RN ae4 Corrections: (The following items were deleted from the chart) 17:44 17:42 Pulse 135bpm; Resp 16bpm; Pulse Ox 98% RA; Temp 99.5F Oral; 95.25 kg; Height 5 hj ft. 4 in.; BMI: 36.0; Pain 8/10; hj 17:45 17:42 Pulse 112bpm; Resp 16bpm; Pulse Ox 98% RA; Temp 99.5F Oral; 95.25 kg; Height 5 hj ft. 4 in.; BMI: 36.0; Pain 8/10; hj 20:36 20:36 Reassessment: Patient appears in no apparent distress at this time. Patient is lp1 alert, oriented x 3, equal unlabored respirations, skin warm/dry/pink. Patient states feeling better. lp1
--- NOTE | 2018-12-05 22:51 | EDPHYS ---
Physician Documentation [facility] Name: Fannie Plunkett Age: 58 yrs Sex: Female : 1960 Arrival Date: 12/05/2018 Time: 17:40 Bed 8 Private MD: Michael Villegas V ED Physician Hao Todd HPI: 12/05 18:35 This 58 yrs old Female presents to ER via Ambulatory with complaints of Chest pm1 Tightness. 18:35 The patient or guardian reports chest pain that is located primarily in the mid-sternal pm1 area. Onset: at 16:30. The pain does not radiate. Associated signs and symptoms: Pertinent positives: nausea, Pertinent negatives: abdominal pain, cough, dizziness, palpitations, shortness of breath, syncope, vomiting. The chest pain is described as a pressure. Duration: The patient or guardian reports a single episode, that is still ongoing. Modifying factors: The symptoms are alleviated by nothing. the symptoms are aggravated by Anxiety. Severity of pain: in the emergency department the pain is unchanged. The patient has experienced similar episodes in the past, a few times. patient just completed dialysis at onset of chest pain and experienced anxiety and chest pain when a breathing mask was placed on her. Historical: - Allergies: 17:42 Codeine; hj 17:42 Morphine; hj 17:42 NSAIDS; hj 17:42 Tape; hj - PMHx: 17:42 Anemia; Arthritis; bowel obstruction; Depression; GERD; Hyperlipidemia; Hypertension; hj Hypothyroidism; ibs; lymphedema; PAH; PULMONARY HYPERTENSION; Renal Disease; Sleep Apnea; - PSHx: 17:42 fistula on R arm; Hysterectomy; IVC filter; Joint replacement; Hernia repair; hj - Immunization history:: Adult Immunizations up to date. - Social history:: Smoking status: Patient/guardian denies using tobacco. - Ebola Screening: : No symptoms or risks identified at this time. ROS: 18:35 Constitutional: Negative for fever, chills, and weight loss, Eyes: Negative for injury, pm1 pain, redness, and discharge, ENT: Negative for injury, pain, and discharge, Neck: Negative for injury, pain, and swelling. 18:35 Respiratory: Negative for shortness of breath, cough, wheezing, and pleuritic chest pain. 18:35 Back: Negative for injury and pain, : Negative for injury, bleeding, discharge, and swelling, MS/Extremity: Negative for injury and deformity, Skin: Negative for injury, rash, and discoloration, Neuro: Negative for headache, weakness, numbness, tingling, and seizure. 18:35 Cardiovascular: Positive for chest pain, Negative for edema, orthopnea, palpitations. 18:35 Abdomen/GI: Positive for nausea, Negative for abdominal pain, vomiting, diarrhea. 18:35 Psych: Positive for anxiety, Negative for auditory hallucinations, visual hallucinations, homicidal ideation, insomnia, suicide gesture, suicidal ideation. Exam: 18:35 Constitutional: This is a well developed, well nourished patient who is awake, alert, pm1 and in no acute distress. Head/Face: Normocephalic, atraumatic. Eyes: Pupils equal round and reactive to light, extra-ocular motions intact. Lids and lashes normal. Conjunctiva and sclera are non-icteric and not injected. Cornea within normal limits. Periorbital areas with no swelling, redness, or edema. ENT: Nares patent. No nasal discharge, no septal abnormalities noted. Tympanic membranes are normal and external auditory canals are clear. Oropharynx with no redness, swelling, or masses, exudates, or evidence of obstruction, uvula midline. Mucous membranes moist. Neck: Trachea midline, no thyromegaly or masses palpated, and no cervical lymphadenopathy. Supple, full range of motion without nuchal rigidity, or vertebral point tenderness. No Meningismus. Chest/axilla: Normal chest wall appearance and motion. Nontender with no deformity. No lesions are appreciated. Cardiovascular: Regular rate and rhythm with a normal S1 and S2. No gallops, murmurs, or rubs. Normal PMI, no JVD. No pulse deficits. Respiratory: Lungs have equal breath sounds bilaterally, clear to auscultation and percussion. No rales, rhonchi or wheezes noted. No increased work of breathing, no retractions or nasal flaring. Abdomen/GI: Soft, non-tender, with normal bowel sounds. No distension or tympany. No guarding or rebound. No evidence of tenderness throughout. Back: No spinal tenderness. No costovertebral tenderness. Full range of motion. Skin: Warm, dry with normal turgor. Normal color with no rashes, no lesions, and no evidence of cellulitis. MS/ Extremity: Pulses equal, no cyanosis. Neurovascular intact. Full, normal range of motion. 18:35 Neuro: Orientation: is normal, Motor: is normal, moves all fours, Sensation: is normal, no obvious gross deficits. Vital Signs: 17:42 BP 111 / 62; Pulse 108; Resp 16; Temp 99.5(O); Pulse Ox 98% on R/A; Weight 95.25 kg; hj Height 5 ft. 4 in. (162.56 cm); Pain 8/10; 19:36 BP 128 / 73; Pulse 106; Resp 20; Pulse Ox 98% on R/A; lp1 21:00 BP 143 / 79; Pulse 110; Resp 19; Pulse Ox 97% on R/A; lp1 22:30 BP 133 / 86; Pulse 124; Resp 20; Temp 99.5(O); Pulse Ox 98% on R/A; Pain 0/10; lp1 23:45 BP 127 / 98; Pulse 117; Resp 20; Pulse Ox 97% on R/A; Pain 0/10; lp1 17:42 Body Mass Index 36.04 (95.25 kg, 162.56 cm) MDM: 18:24 Patient medically screened. pm1 22:25 ED course: Troponin drawn at 2133 by lab for recollection. Patient onset of chest pain pm1 at 1630. Negative troponin greater than 4 hours after onset of symptoms. 22:31 Data reviewed: vital signs. Data interpreted: Pulse oximetry: on room air is 98 %. pm1 Interpretation: normal. 22:31 Counseling: I had a detailed discussion with the patient and/or guardian regarding: lab pm1 results. 22:41 ED course: Heart score = 1 for hyperlipidemia. ED course: KARINA Score = 1 for pm1 hyperlipidemia. 22:41 ED course: Patient attributes her symptoms to anxiety and requested medication for pm1 anxiety in the ER. She uses clonazepam 0.5 PRN at home for anxiety and panic attacks. Patient with negative troponin greater than 4 hours and has heart score and KARINA score of 1. ECG shows sinus tachycardia 106 that is otherwise normal. It is not 0 but the patient does not want to stay in the hospital for chest pain observation. Therefore I will send the patient home with return precautions. 22:41 Counseling: I had a detailed discussion with the patient and/or guardian regarding: the pm1 historical points, exam findings, and any diagnostic results supporting the discharge/admit diagnosis, lab results, radiology results, the need for outpatient follow up, to return to the emergency department if symptoms worsen or persist or if there are any questions or concerns that arise at home. 12/05 18:25 Order name: Basic Metabolic Panel; Complete Time: 22:15 pm1 12/05 18:25 Order name: CBC with Diff; Complete Time: 21:32 pm1 12/05 18:25 Order name: LFT's; Complete Time: 22:15 pm1 12/05 18:25 Order name: Magnesium; Complete Time: 22:15 pm1 12/05 18:25 Order name: Troponin (emerg Dept Use Only); Complete Time: 22:15 pm1 12/05 17:45 Order name: EKG - Nurse/Tech; Complete Time: 17:45 12/05 18:25 Order name: XRAY Chest (1 view); Complete Time: 19:09 pm1 12/05 18:25 Order name: EKG; Complete Time: 18:27 pm1 12/05 18:25 Order name: Cardiac monitoring; Complete Time: 18:46 pm1 12/05 18:25 Order name: IV Saline Lock; Complete Time: 18:46 pm12/05 18:25 Order name: Labs collected and sent; Complete Time: 18:46 pm12/05 18:25 Order name: O2 Per Protocol; Complete Time: 18:46 pm1 12/05 18:25 Order name: O2 Sat Monitoring; Complete Time: 18:46 pm1 EC:55 Rate is 106 beats/min. Rhythm is regular, Sinus tachycardia with No ectopy. No Q waves. pm1 T waves are Normal. No ST changes noted. Clinical impression: Sinus tachycardia. Administered Medications: 22:34 Drug: Ativan 1 mg Route: PO; lp1 23:48 Follow up: Response: Marked relief of symptoms lp1 Disposition: 12/05/18 22:50 Discharged to Home. Impression: Chest pain, unspecified. - Condition is Stable. - Discharge Instructions: Nonspecific Chest Pain, Generalized Anxiety Disorder. - Medication Reconciliation Form, Thank You Letter, Antibiotic Education, Prescription Opioid Use form. - Follow up: Emergency Department; When: As needed; Reason: Worsening of condition. Follow up: Private Physician; When: 2 - 3 days; Reason: Recheck today's complaints, Continuance of care, Re-evaluation by your physician. - Problem is new. - Symptoms have improved. Addendum: 12/07/2018 06:59 Co-signature as Attending Physician, Hao Todd MD. r n Signatures: Dispatcher [employer] [facility] Hao Todd MD MD rn Pena, Laura, RN RN lp1 Be Puentes RN RN Quintin Stephens, PAPER COATING MACHINE OPERATOR PAPER COATING MACHINE OPERATOR pm1 Corrections: (The following items were deleted from the chart) 12/05 20:45 18:26 PROTIME (+INR)+[id number].BRZ ordered. [facility] 23:48 22:50 12/05/2018 22:50 Discharged to Home. Impression: Chest pain, unspecified. lp1 Condition is Stable. Forms are Medication Reconciliation Form, Thank You Letter, Antibiotic Education, Prescription Opioid Use. Follow up: Emergency Department; When: As needed; Reason: Worsening of condition. Follow up: Private Physician; When: 2 - 3 days; Reason: Recheck today's complaints, Continuance of care, Re-evaluation by your physician. Problem is new. Symptoms have improved. pm1
[2018-12-06 02:10] VITALS: TEMP 99.5
[2018-12-06 02:15] VITALS: BP 127/98; O2SAT 97
--- NOTE | 2018-12-06 11:11 | EKG ---
Test Date: 2018-12-05 Test Time: 17:48:31 Senior Warehouse Clerk: KG MEASUREMENT RESULTS: Intervals: Rate: 106 WA: 138 QRSD: 92 QT: 348 QTc: 462 Lula: P: 37 WA: 138 QRS: 28 T: 58 INTERPRETIVE STATEMENTS: Sinus tachycardia Otherwise normal ECG Compared to ECG 11/08/2018 22:32:43 Sinus rhythm no longer present Left ventricular hypertrophy no longer present Electronically Signed On 12-06-18 11:09:48 CDT by Talon Ariza
== END 2018-12-05 23:48 | disposition home or self-care (01) ==
LOC: ER 17:35
DX: R07.9 Chest pain, unspecified (principal); I12.0 Hypertensive chronic kidney disease with stage 5 chronic kidney disease or end stage renal disease; N18.6 End stage renal disease; Z88.5 Allergy status to narcotic agent; Z88.6 Allergy status to analgesic agent; Z91.048 Other nonmedicinal substance allergy status; Z99.2 Dependence on renal dialysis
CPT/HCPCS: 36415; 71045; 80048; 80076; 83735; 84484; 85025; 93005; 99285

== ENCOUNTER 2018-12-17 13:50 | Inpatient (IN) | payer OTHER ==
--- OUTSIDE RECORDS SUMMARY | 2018-12-17 13:55 | XMS REPORT | Clinical Summary ---
:1960 Author Organization [facility] Address [address] [place] [address] Care Team Providers Name Role Phone Michael [...] Not on file Results Not on fileafter 12/16/2017 Insurance Payer Benefit Plan / Group Subscriber ID Type Phone Address [employer] - [employer] HMO POS QPOS xxxxxxxxx HMO/POS
--- OUTSIDE RECORDS SUMMARY | 2018-12-17 13:55 | XMS REPORT | Clinical Summary ---
:1960 Author Organization [facility] Address [address] [place] [address] Care Team Providers Name Role Phone Asked, [...] (LOFIBRA) 160 MG mouth daily. 19 tablet nebivolol Take 5 mg by 0 10/31/19 Discontinued (BYSTOLIC) 5 MG mouth nightly. 19 tablet clonAZEPAM Take 0.5 mg by 0 10/31/19 Discontinued (KlonoPIN) 0.5 MG mouth nightly. 19 tablet traMADol (ULTRAM) Take 50 mg by 0 10/31/19 Discontinued 50 mg tablet mouth every 6 19 (six) hours as needed for moderate pain. apixaban (ELIQUIS) Take 1 tablet 60 tablet [...] tablet methocarbamol Take 750 mg by 0 20 Discontinued (ROBAXIN) 750 MG mouth 4 (four) [...] [place] 10/05/2018 - Hospital Encounter Neurosurgery Preeti Simms Stage 5 chronic 10/30/2018 MD Harley kidney disease on chronic dialysis (HCC) (Primary Dx) 10/05/2018 Orders Only General Internal Preeti Simms MD 12/21/2017 Telephone General Surgery Elaine Tavares PA after 12/16/2017 Social History Tobacco Use Types Packs/Day Years [...] Last Done Comments BREAST CANCER SCREENING 2008 COLONOSCOPY SCREENING 2008 SHINGLES VACCINES (#1) 2008 INFLUENZA VACCINE 01/31/2019 Implants Implanted Type Area Vending Stand Supervisor Device Shelf Model / Identifier Expiration Serial / Date Lot Set Cathztn Hmodial Lngtrm Accs 15fr 28cm Edge Simplicity - [id number] Central N/A: N/A ARROW 04/01/2021 CS [id number] IM / Implanted: 10/25/2018 (Quantity not on file) Venous INTERNATIONAL / Catheters INC [id number] Clip Ligtng Weck Hemoclip Plus W/ Tape Ti Med Lg - [id number] Medical N/A: N/ A WECK CLOSURE 04/18/2022 [id number] / Implanted: Qty: 1 on 11/28/2017 by Berhane Roa MD Clips for SYSTEMS / Internal Use Clip Ligtng Weck Hemoclip Plus W/ Tape Ti Med - [id number] Medical N/A: N/A TELEFLEX MEDICAL 04/18/2022 [id number] / Implanted: Qty: 1 on 11/28/2017 by Berhane Roa MD Clips for / Internal Use Clip Ligtng Weck Hemoclip Plus W/ Tape Ti Lg - [id number] Medical N/A: N/A TELEFLEX MEDICAL 04/18/2022 [id number] / Implanted: Qty: 1 on 11/28/2017 by Berhane Roa MD Clips for / Internal Use Mesh Hrnia Rpr Sepramesh 8x12in Rectngl Cmpst Ppe Ventrl - [id number] Surgical N/A: DAVOL INC 07/30/2018 [id number] / Implanted: 11/28/2017 (Quantity not on file) Mesh or Abdomen, / Tissue Middle [id number] Barrier Quadrant/No Products n Specific Procedures Procedure [...] in the results section. BLOOD CULTURE, AEROBIC Routine 10/17/2018 7:40 Results for this & ANAEROBIC AM CDT procedure are in the [...] are in the results section. VANCOMYCIN LEVEL, Routine 10/15/2018 4:41 Results for this RANDOM AM CDT procedure are in the results [...] HOURS the results section. BLOOD CULTURE, AEROBIC Routine 10/13/2018 5:15 Results for this & ANAEROBIC PM CDT procedure are in the results section. BLOOD CULTURE, AEROBIC Routine 10/13/2018 4:55 Results for this & ANAEROBIC PM CDT procedure are in the [...] are in the results section. VANCOMYCIN LEVEL, Routine 10/12/2018 4:00 Results for this RANDOM AM CDT procedure are in the results [...] in the results section. BLOOD CULTURE, AEROBIC Routine 10/10/2018 12:16 Results for this & ANAEROBIC PM CDT procedure are in the results section. BLOOD CULTURE, AEROBIC Routine 10/10/2018 12:00 Results for this & ANAEROBIC PM CDT procedure are in the [...] 10/08/2018 6:45 Results for this DIFFERENTIAL, BODY PM CDT procedure are in FLUID the results section. PROTEIN, MISC FLUID Routine [...] in the results section. BLOOD CULTURE, AEROBIC Routine 10/08/2018 12:30 Results for this & ANAEROBIC PM CDT procedure are in the [...] are in SPECTRAL COLOR DOPPLER the results (41485) section. HEPATITIS B SURFACE STAT 10/06/2018 2:30 [...] BLOOD Routine 03/07/2018 5:51 CELLS PM CDT after 12/16/2017 Results Estimated GFR (10/27/2018 8:25 AM CDT)Only the most recent of15 resultswithin the time period is included. Estimated GFR 11 (A) mL/min/1.73 [facility] Comment: m2 HOSPITAL CatergoryUnitsInterpretation G1 >=90 Normal or high G2 60-89Mildly decreased Z2w29-46Duccxv to moderately decreased K9c58-47Xvhzanqgqp to severely decreased G4 15-29Severely decreased G5 <15Kidney failure The eGFR was calculated using the Chronic Kidney Disease Epidemiology Collaboration (CKD-EPI) equation. Interpretation is based on recommendations of the National Kidney Foundation-Kidney Disease Outcomes Quality Initiative (NKF-KDOQI) published in 2014. Specimen Plasma specimen Performing Organization Address City/State/Zipcode Phone Number [facility] DEPARTMENT OF PATHOLOGY AND [address] [place] [address] [address] CBC with platelet and differential (10/27/2018 8:25 AM CDT)Only the most recent of11 resultswithin the time period is included. WBC 3.85 (L) 4.50 - 11.00 [facility] k/uL HOSPITAL RBC 3.06 (L) 4.20 - 5.50 [facility] m/uL [facility] HGB 9.3 (L) 12.0 - 16.0 [facility] g/dL [facility] HCT 31.7 (L) 37.0 - 47.0 % [facility] MCV 103.6 (H) 82.0 - 100.0 [facility] MCH 30.4 27.0 - 34.0 pg [facility] MCHC 29.3 (L) 31.0 - 37.0 [facility] g/dL [facility] RDW - SD 63.9 (H) 37.0 - 55.0 fL [facility] MPV 9.8 8.8 - 13.2 fL [facility] Platelet count 168 150 - 400 k/uL [facility] Nucleated RBC 0.80 /100 WBC [facility] Neutrophils 55.6 39.0 - 69.0 % [facility] Lymphocytes 27.8 25.0 - 45.0 % [facility] Monocytes 13.0 (H) 0.0 - 10.0 % [facility] Eosinophils 2.3 0.0 - 5.0 % [facility] Basophils 0.5 0.0 - 1.0 % [facility] Immature granulocytes 0.8Comment: 0.0 - 1.0 % [facility] "Immature [facility] granulocytes" (promyelocytes , myelocytes, metamyelocytes ) Specimen Blood Performing Organization Address City/[facility]/Zipcode Phone Number [facility] DEPARTMENT OF PATHOLOGY AND [address] [place] [address] [address] Basic metabolic panel (10/27/2018 8:25 AM CDT)Only the most recent of14 resultswithin the time period is included. Sodium 148 135 - 148 mEq/L [facility] Potassium 4.1 3.5 - 5.0 mEq/L [facility] Chloride 104 98 - 112 mEq/L [facility] CO2 25 24 - 31 mEq/L [facility] Anion gap 19@ANIO (H) 7 - 15 mEq/L [facility] BUN 48 (H) 8 - 23 mg/dL [facility] Creatinine 4.25 (H) 0.50 - 0.90 mg/dL [facility] Glucose 106 (H) 65 - 99 mg/dL [facility] Calcium 9.2 8.8 - 10.2 mg/dL [facility] Specimen Plasma specimen Performing Organization Address City/State/Zipcode Phone Number [facility] DEPARTMENT OF PATHOLOGY AND [address] [place] [address] GENOMIC MEDICINE [address] [address] IR Non-Tunneled Central Line Removal (10/25/2018 3:34 [...] Loss: Less than 1 mL [facility]-[id number] Procedure Note Interface, Radiology Results Incoming - [...] Loss: Less than 1 mL [facility]-[id number] Performing Organization Address City/State/Zipcode Phone Number [facility] [address] [place] [address] IR Tunneled Dialysis Catheter Placement (10/25/2018 3:34 PM CDT)Only the most recent of2 resultswithin the time period is included. Specimen Narrative Performed At Procedure: Placement of tunneled dialysis catheter [facility] Clinical History: End-stage renal disease Sedation: Versed and fentanyl were utilized for monitored conscious sedation during the procedure. The patient was transferred to the recovery room at the end of the procedure for further monitoring. Ylmu-lc-uzcn time 21 minutes Anesthesia: Local Radiation dose: [...] was brought through the tunnel. A 5 [address] Helenian catheter was placed over the initially placed [...] Loss: Less than 1 mL [facility]-[id number] Procedure Note Interface, Radiology Results Incoming - 10/25/2018 3:47 PM CDT Procedure: Placement of tunneled dialysis catheter Clinical History: End-stage renal disease Sedation: Versed and fentanyl were utilized for monitored conscious sedation during the procedure. The patient was transferred to the recovery room at the end of the procedure for further monitoring. Vuse-jq-pkvz time 21 minutes Anesthesia: Local Radiation dose: [...] was brought through the tunnel. A 5 St Helenian catheter was placed over the initially placed [...] Loss: Less than 1 mL [facility]-[id number] Performing Organization Address City/[facility] Phone Number [facility] [address] [place] [phone] Transfuse RBC (10/22/2018 10:33 PM CDT)Only the most recent of7 resultswithin the time period is included.Smear review (10/22/2018 5:00 AM CDT)Only the most recent of2 resultswithin the time period is included. Platelet slide review Mary Ellen adequate [facility] Anisocytosis Moderate [facility] Polychromasia Moderate [facility] Ovalocytes Moderate [facility] Specimen Performing Organization Address City/[facility] Phone Number [facility] DEPARTMENT OF PATHOLOGY AND [address] [place] [address] GENOMIC MEDICINE [address] [address] Prepare RBC, 2 Units (10/22/2018 5:00 AM CDT) Product name Red Blood Cells [facility] -1, Leukored HOSPITAL Unit number [id number] [facility] Product code [id number] [facility] Dispense status Transfused [facility] Blood expiration [facility] Blood type code 7300 [facility] Blood type B POSITIVE [facility] Product name Red Blood Cells [facility] -1, Leukored HOSPITAL Unit number [id number] [facility] Product code [id number] [facility] Dispense status Transfused [facility] Blood expiration [id number] [facility] Blood type code 7300 [facility] Blood type B POSITIVE [facility] Specimen Blood Performing Organization Address City/[facility] Cent[facility] Phone Number [facility] DEPARTMENT OF PATHOLOGY AND [address] [place] [phone] Type and screen (10/22/2018 5:00 AM CDT) ABO grouping B [facility] Rh type POS [facility] Antibody screen (gel) NEG [facility] Specimen Blood Performing Organization Address [facility] Phone Number [facility] DEPARTMENT OF PATHOLOGY AND [address] [place] [phone] Blood culture, aerobic & anaerobic (10/17/2018 7:40 AM CDT)Only the most recent of6 resultswithin the time period is included. Blood culture No growth after 5 days of incubation. [facility] isolate Comment: HOSPITAL Specimen Information Specimen Source: Blood Specimen Site: Hand Left Specimen Blood Performing Organization Address City/[facility] Centercode Phone Number [facility] DEPARTMENT OF PATHOLOGY AND [address] [place] [address] Magnesium level (10/17/2018 3:30 AM CDT)Only the most recent of2 resultswithin the time period is included. Magnesium 1.9 1.6 - 2.4 mg/dL [facility] Specimen Plasma specimen Performing Organization Address City/[facility] Cent[facility] Phone Number [facility] DEPARTMENT OF PATHOLOGY AND [address] [place], [place] [phone] [address] [address] POC glucose (10/16/2018 8:37 PM CDT)Only the most recent of7 resultswithin the time period is included. POC glucose 160 (H) 65 - 99 mg/dL [facility] Comment: [facility] Notified RN Meter ID: [id number] Azure Developer: Rylan Mackay Specimen Performing Organization Address City/State/Zipcode Phone Number [facility] DEPARTMENT OF PATHOLOGY AND [address] [place] [address] [address] IR Tunneled Dialysis Catheter Removal (10/16/2018 5:43 [...] than 10 Standardized report: [email or web address] [facility]-[id number] Procedure Note Hm Interface, Radiology Results Incoming - 10/16/2018 6:03 PM [...] than 10 Standardized report: [email or web address] [facility]-[id number] Performing Organization Address City/[facility]/Zipcode Phone Number [facility] [address] [place] [address] CBC hemogram (10/16/2018 10:00 AM CDT) WBC 3.99 (L) 4.50 - 11.00 k/uL [facility] RBC 2.25 (L) 4.20 - 5.50 m/uL [facility] HGB 7.1 (L) 12.0 - 16.0 g/dL [facility] HCT 23.3 (L) 37.0 - 47.0 % [facility] MCV 103.6 (H) 82.0 - 100.0 fL [facility] MCH 31.6 27.0 - 34.0 pg [facility] MCHC 30.5 (L) 31.0 - 37.0 g/dL [facility] RDW - SD 55.3 (H) 37.0 - 55.0 fL [facility] MPV 9.1 8.8 - 13.2 fL [facility] Platelet count 129 (L) 150 - 400 k/uL [facility] Nucleated RBC 0.00 /100 WBC [facility] Specimen Performing Organization Address City/[facility]/Zipcode Phone Number [facility] DEPARTMENT OF PATHOLOGY AND [address] [place] [address] GENOMIC MEDICINE [place] [id number] [place] [address] Phosphorus level (10/16/2018 5:10 AM CDT) Phosphorus 2.6 2.4 - 4.5 mg/dL [facility] Specimen Plasma specimen Performing Organization Address City/[facility] Cent[facility]ode Phone Number [facility] DEPARTMENT OF PATHOLOGY AND [address] [place] [phone] [place] [phone] Arterial blood gas (10/15/2018 10:38 PM CDT)Only the most recent of6 resultswithin the time period is included. pH, arterial 7.43 7.35 - 7.45 [facility] pCO2, arterial 42 35 - 45 mmHg [facility] pO2, arterial 154 (H) 80 - 90 mmHg [facility] Bicarbonate, 27.0 21.0 - 28.0 [facility] mmol/L HOSPITAL Base excess, 3 (H) -2 - 2 mEq/L [facility] O2 saturation, 100 95 - 100 % [facility] Specimen Blood Performing Organization Address City/[facility] Centercode Phone Number [facility] DEPARTMENT OF PATHOLOGY AND [address] [place] [address] Vancomycin level, random (10/15/2018 4:41 AM CDT)Only the most recent of2 resultswithin the time period is included. Vancomycin, random 21.1 ug/mL [facility] Specimen Serum Performing Organization Address City/[facility]/Zipcode Phone Number [facility] DEPARTMENT OF PATHOLOGY AND [address] [place], [place] [phone] XR Chest 1 Vw Portable (10/14/2018 8:28 AM CDT)Only the most recent of4 resultswithin the time period is included. Specimen Narrative Performed At EXAMINATION:XR CHEST 1 VW PORTABLE [facility] CLINICAL HISTORY:Dyspnea COMPARISON:10 October 2018 IMPRESSION: Left IJ catheter remains in position.There is continuing cardiomegaly mediastinal widening.Bilateral perihilar infiltrate is more extensive on the left where there is also pleural effusion. [facility]-[id number] Procedure Note Interface, Radiology Results Incoming - 10/14/2018 8:52 AM CDT EXAMINATION: XR CHEST 1 VW PORTABLE CLINICAL HISTORY: Dyspnea COMPARISON: 10 October 2018 IMPRESSION: Left IJ catheter remains in position. There is continuing cardiomegaly mediastinal widening. Bilateral perihilar infiltrate is more extensive on the left where there is also pleural effusion. [facility]-[id number] Performing Organization Address [facility]/Zipcode Phone Number [facility] [address] [place] [address] Lactic acid level, SEPSIS - Now and repeat 2x every 3 hours (10/14/2018 5:10 AM CDT)Only the most recent of2 resultswithin the time period is included. Pathologist [facility] Lactic acid 0.7 0.5 - 2.2 mmol/L [facility] Specimen Plasma specimen Performing Organization Address [facility] Centercode Phone Number [facility] DEPARTMENT OF PATHOLOGY AND [address] [place] [address] [address] [address] [address] XR Forearm 2 Vw Right (10/11/2018 2:01 PM CDT) Specimen Narrative Performed At EXAMINATION:XR FOREARM 2 VW RIGHT [facility] CLINICAL HISTORY:fall wtih persistent pain R forearm COMPARISON:none. IMPRESSION: 1.No displaced fractures or dislocations. [facility]-[id number] Procedure Note Hm Interface, Radiology Results Incoming - 10/11/2018 3:58 PM CDT EXAMINATION: XR FOREARM 2 VW RIGHT CLINICAL HISTORY: fall wtih persistent pain R forearm COMPARISON: none. IMPRESSION: 1. No displaced fractures or dislocations. [facility]-[id number] Performing Organization Address [facility] Phone Number [facility] [address] [place] [address] Gram stain (10/10/2018 6:48 PM CDT)Only the most recent of2 resultswithin the time period is included. Pathologist [facility] Gram stain result Few WBC's [facility] No organisms seen HOSPITAL Comment: Specimen Information Specimen Source: Urine Specimen Site: Catheterized Specimen Urine - Catheterized Performing Organization Address [facility]/Zipcode Phone Number [facility] DEPARTMENT OF PATHOLOGY AND [address] [place] [address] [address] Urine culture (10/10/2018 6:48 PM CDT) Pathologist [facility] Urine culture Escherichia coli [facility] isolate 10-5 cfu/ml HOSPITAL The performance characteristics of this assay on this isolate were validated by the Microbiology Laboratory at [facility].This source has not been approved by the [...] MATTEO <=0.5 mcg/mL: Susceptible Performing Organization Address City/State/Zipcode Phone Number [facility] DEPARTMENT OF PATHOLOGY AND [address] [place] [address] GENOMIC MEDICINE [facility] [address] [place] [address] Urinalysis screen and microscopy, with reflex to culture (10/10/2018 5:28 PM CDT) Specimen site Catheterized [facility] Color, UA Red [facility] Appearance, UA Turbid [facility] Specific gravity, 1.021 1.001 - 1.035 [facility] pH, UA 5.0 5.0 - 8.5 [facility] Protein, UA 2+ (A) Negative [facility] Glucose, UA Negative Negative [facility] Ketones, UA Negative Negative [facility] Bilirubin, UA Negative Negative [facility] Blood, UA Moderate (A) Negative [facility] Nitrite, UA Negative Negative [facility] Urobilinogen, UA <2.0 <2.0 [facility] Leukocyte esterase, Moderate (A) Negative [facility] WBC, UA >180 (H) 0 - 4 /HPF [facility] RBC, UA 8 (H) 0 - 5 /HPF [facility] Bacteria, UA Moderate (A) None seen [facility] WBC clumps, UA Many (A) [facility] Yeast, UA None seen [facility] Yeast with None seen [facility] pseudohyphae, HOSPITAL Specimen Urine Performing Organization Address City/State/Zipcode Phone Number [facility] DEPARTMENT OF PATHOLOGY AND [address] [place] [address] GENOMIC MEDICINE [address] [address] Respiratory pathogen panel (10/09/2018 4:25 PM CDT) Respiratory Negative for all pathogens tested: [facility] pathogen panel Negative for Adenovirus PENTECOSTALISM Negative for Coronavirus HKU1 [facility] Negative for Coronavirus NL63 Negative for Coronavirus [...] Specimen Nares - Right Performing Organization Address [facility]/Zipcode Phone Number [facility] DEPARTMENT OF PATHOLOGY AND [address] [place] [address] [address] Influenza antigen test, reflex negative to RPP (10/09/2018 4:25 PM CDT) Influenza antigen Negative for Influenza A/B antigen. [facility] Comment: HOSPITAL Specimen Information Specimen Source: Nares Specimen Site: Right Specimen Nares - Right Performing Organization Address [facility] Cent[facility] Phone Number [facility] DEPARTMENT OF PATHOLOGY AND [address] [place] [address] [address] XR Chest 1 Vw (10/08/2018 7:35 PM [...] No other significant interval change. [facility]-[id number] Procedure Note Hm Interface, Radiology Results Incoming [...] No other significant interval change. [facility]-[id number] Performing Organization Address [facility]/Zipcode Phone Number [facility] [address] [place] [address] [place] Thoracentesis With Imaging (10/08/2018 6:55 PM CDT) Specimen Narrative Performed At EXAMINATION:US THORACENTESIS WITH IMAGING [facility] CLINICAL HISTORY: shortness of breathhypoxemialeft sided effusion CONSENT: Risks, benefits, and alternatives were discussed. Written informed consent was obtained prior to the procedure. ANESTHESIA: Lidocaine Local. TECHNIQUE:Patient was placed in a seated upright position. Skin was sterilely prepped and draped. Lidocaine was infiltrated into the soft tissues for local anesthesia. Using ultrasound guidance, a 5 St Helenian One-Step catheter was advanced over a trocar into the left pleural space. 0.6 L of bloody pleural fluid was removed. Patient tolerated the procedure well without immediate complication and left the room in stable condition. EBL: 0 ml. SPECIMENS: Specimen was sent if ordered. ASSISTANTS: None. IMPRESSION:Uncomplicated ultrasound-guided left thoracentesis. Procedure Note [facility], Radiology Results Incoming - 10/09/2018 6:24 [...] local anesthesia. Using ultrasound guidance, a 5 St Helenian One-Step catheter was advanced over a trocar into the left pleural space. 0.6 L of bloody pleural fluid was removed. Patient tolerated the procedure well without immediate complication and left the room in stable condition. EBL: 0 ml. SPECIMENS: Specimen was sent if ordered. ASSISTANTS: None. IMPRESSION: Uncomplicated ultrasound-guided left thoracentesis. Performing Organization Address City/[facility] Phone Number [address] [address] AFB culture (10/08/2018 6:45 PM CDT) AFB culture No growth after 6 weeks of incubation. [facility] isolate Comment: HOSPITAL Specimen Information Specimen Source: Pleural fluid Specimen Site: Chest, left Specimen Pleural fluid - Chest, left Performing Organization Address City/[facility] Cent[facility] Phone Number [facility] DEPARTMENT OF PATHOLOGY AND [address] [place] [address] GENOMIC MEDICINE [address] [address] Aerobic culture (10/08/2018 6:45 PM CDT) Aerobic culture No growth after 3 days. [facility] Comment: HOSPITAL Specimen Information Specimen Source: Pleural fluid Specimen Site: Chest, left Specimen Pleural fluid - Chest, left Performing Organization Address [facility] Centercode Phone Number [facility] DEPARTMENT OF PATHOLOGY AND [address] [place] [phone] [address] AFB stain (10/08/2018 6:45 PM CDT) AFB stain No acid fast bacilli (AFB) seen. [facility] Comment: HOSPITAL Specimen Information Specimen Source: Pleural fluid Specimen Site: Chest, left Specimen Pleural fluid - Chest, left Performing Organization Address [facility] Phone Number [facility] DEPARTMENT OF PATHOLOGY AND [address] [place] [phone] [place] [phone] Anaerobic culture (10/08/2018 6:45 PM CDT) Anaerobic culture No anaerobic organisms isolated. [facility] isolate Comment: HOSPITAL Specimen Information Specimen Source: Pleural fluid Specimen Site: Chest, left Specimen Pleural fluid - Chest, left Performing Organization Address [facility] Phone Number [facility] DEPARTMENT OF PATHOLOGY AND [address] [place] [phone] [address] Cell count and differential, body fluid (10/08/2018 6:45 PM CDT) Misc fluid type Pleural [facility] Color, fluid Red [facility] Appearance, fluid Hazy [facility] RBC, fluid 86,000 /CMM [facility] Nucleated cells, fluid 1,965 /CMM [facility] Fluid mononuclear cell See Diff [facility] Neutrophils, fluid 17 % [facility] Lymphocytes, fluid 14 % [facility] Mesothelial cells, 8 % [facility] Macrophages, fluid 61 % [facility] Specimen Fluid Performing Organization Address [facility] Phone Number [facility] DEPARTMENT OF PATHOLOGY AND [address] [place] [phone] [address] Protein, misc fluid (10/08/2018 6:45 PM CDT) Fluid type Pleural [facility] Protein, fluid 4.0 g/dL [facility] Comment: HOSPITAL Analysis performed on Eliana 8000 analyzer. This is not an approved methodology for this specimen type;accuracy and clinical significance uncertain. Specimen Fluid Performing Organization Address City/[facility]/Zipcode Phone Number [facility] DEPARTMENT OF PATHOLOGY AND [address] [place] [phone] [place] [phone] LDH, misc fluid (10/08/2018 6:45 PM CDT) Fluid type Pleural [facility] LDH, fluid 255 U/L [facility] Comment: HOSPITAL Analysis performed on Eliana 8000 analyzer. This is not an approved methodology for this specimen type;accuracy and clinical significance uncertain. Specimen Fluid Performing Organization Address City/[facility]ode Phone Number [facility] DEPARTMENT OF PATHOLOGY AND [address] [place] [phone] [place] [phone] Glucose level, misc fluid (10/08/2018 6:45 PM CDT) Fluid type Pleural [facility] Glucose, fluid 110 mg/dL [facility] Comment: HOSPITAL Analysis performed on Eliana 8000 analyzer. This is not an approved methodology for this specimen type;accuracy and clinical significance uncertain. Specimen Fluid Performing Organization Address [facility] Centercode Phone Number [facility] DEPARTMENT OF PATHOLOGY AND [address] [place] [phone] [place] [address] pH, misc fluid (10/08/2018 6:45 PM CDT) Fluid type Pleural [facility] pH, fluid 8.00Comment: Reference [facility] ranges are not HOSPITAL established for Miscellanous specimens. Specimen Fluid Performing Organization Address City/[facility]/Zipcode Phone Number [facility] DEPARTMENT OF PATHOLOGY AND [address] [place] [phone] [place] [address] Lactic acid level (10/08/2018 12:30 PM CDT) Pathologist [facility] Lactic acid 0.8 0.5 - 2.2 mmol/L [facility] Specimen Blood Performing Organization Address City/State/Zipcode Phone Number [facility] DEPARTMENT OF PATHOLOGY AND [address] [place] [phone] [place] [address] Head Wo Contrast (10/08/2018 11:25 AM [...] intracranial abnormality identified. No significant interval appreciated. [id number] Procedure Note Interface, Radiology Results Incoming - [...] intracranial abnormality identified. No significant interval appreciated. [id number] Performing Organization Address City/State/Zipcode Phone Number [facility] [address] [place] [address] CT Chest Wo Contrast (10/08/2018 11:25 AM [...] correlation. 4.Additional findings as above. [facility]-[id number] Procedure Note [facility], Radiology Results Incoming - 10/08/2018 12:06 [...] 4. Additional findings as above. [facility]-[id number] Performing Organization Address City/[facility]/Zipcode Phone Number [facility] [address] [place] [address] Cytology (non-gynecological) request (10/08/2018 7:49 AM CDT) [facility] DEPARTMENT OF PATHOLOGY AND GENOMIC MEDICINE Cytology See link below [facility] DEPARTMENT OF (non-gynecological) for PDF Lab PATHOLOGY AND report Report GENOMIC MEDICINE Result status This is Final [facility] DEPARTMENT OF Report for PATHOLOGY AND [id number] GENOMIC MEDICINE Specimen Performing Organization Address [facility] Centercowv Phone Number [facility] DEPARTMENT OF PATHOLOGY AND [address] [place] [address] GENOMIC MEDICINE Echocardiogram complete w contrast and 3D if needed (10/07/2018 10:04 AM CDT) Specimen Narrative Performed At [facility] Echocardiography Report [address] [place] [address] Pat.Name:FANNIE DELACRUZ Pat.ID:[id number] .Date: 10/07/2018Refer.MD:PREETI SIMMS MD Exam Time: 8:14:00 AMStudy Type:Routine Echo Height:64inWeight: 225lb BSA: 2.06 m2 DOBAge:1960,58Y Sex: FEMALEBP:89/49 HR:81 bpm Sonogrphr: STEPHENIE Kessler Pat. Stat.:Inpatient Room:[facility] Study Status:Final Echo Event ID:[id number] Order ID:[id number] Reason for Study:SOB History / Clinical:Pulmonary Hypertension, [...] PA systolic pressure. MEASUREMENTS: 2D Parasternal Long Mcdonough LVOT 2.2 cmAo An2.1 cm LA Ds4.8 cmAo Rtd 3 cm Index1.4 cm/m Left Ventricle LVIDd5 cm (3.6-5.2) Index2.4 cm/m LA Sng Plane LA Area 26.1 cm2(8.8-23.4) LA Vol74.4 ml Index36.1 ml/m LA LngAx 7.7 cm Signed 10/07/2018 12:50 PM Dario Morales MD Procedure Note Interface, Radiology Results In - 10/07/2018 12:51 PM CDT Echocardiography Report [address] [address] Pat.Name: FANNIE DELACRUZ Pat.ID: [id number] .Date: 10/07/2018 Refer.MD: PREETI SIMMS MD Exam Time: 8:14:00 AM Study Type:Routine Echo Height: 64in Weight: 225lb BSA: 2.06 m2 Age: 10 1960,58Y Sex: FEMALE BP: 89/49 HR: 81 bpm Sonogrphr: Liliane Corado RUST Pat. Stat.:Inpatient Room: [facility] Study Status:Final Echo Event ID:[id number] Order ID: [id number] Reason for Study:SOB History / Clinical:Pulmonary Hypertension, [...] PA systolic pressure. MEASUREMENTS: 2D Parasternal Long Mcdonough LVOT 2.2 cm Ao An 2.1 cm LA Ds 4.8 cm Ao Rtd 3 cm Index 1.4 cm/m Left Ventricle LVIDd 5 cm (3.6-5.2) Index 2.4 cm/m LA Sng Plane LA Area 26.1 cm2 (8.8-23.4) LA Vol 74.4 ml Index 36.1 ml/m LA LngAx 7.7 cm Signed 10/07/2018 12:50 PM Dario Morales MD Performing Organization Address City/[facility]erc[facility]v Phone Number [facility] [address] [place] [address] Hepatitis B surface antigen (10/06/2018 2:30 PM CDT) Pathologist [facility] Hepatitis B surface Non-reactive Non-reactive [facility] Specimen Blood Performing Organization Address [facility]v Phone Number [facility] DEPARTMENT OF PATHOLOGY AND [address] [place] [phone] [address] Prothrombin time with INR (10/06/2018 2:30 PM CDT) Pathologist [facility] Prothrombin time 14.5 11.5 - 14.5 [facility] INR 1.2 [place] Comment: [facility] International Normalized Ratio (INR) is a therapeutic HOSPITAL monitoring tool for patients who are stable on oral anticoagulant therapy. An INR of 2.0-3.0 is suggested for deep vein thrombosis/pulmonary embolism. Specimen Blood Performing Organization Address [facility] Centercode Phone Number [facility] DEPARTMENT OF PATHOLOGY AND [address] [place] [phone] [address] Comprehensive metabolic panel (10/06/2018 2:30 PM CDT) [facility] Sodium 143 135 - 148 [facility] mEq/L [facility] Potassium 4.5 3.5 - 5.0 [facility] mEq/L [facility] Chloride 101 98 - 112 mEq/L [facility] CO2 28 24 - 31 mEq/L [facility] Anion gap 14@ANIO 7 - 15 mEq/L [facility] BUN 61 (H) 8 - 23 mg/dL [facility] Creatinine 3.36 (H) 0.50 - 0.90 [facility] mg/dL [facility] Glucose 116 (H) 65 - 99 mg/dL [facility] Calcium 9.1 8.8 - 10.2 [facility] mg/dL [facility] Protein 6.3 6.3 - 8.3 g/dL [facility] Comment: HOSPITAL 4.6-7.0 g/dL 1 week 4.4-7.6 g/dL 7 months-1year5.1-7.3 g/dL 1-2 years5.6-7.5 g/dL >3 years6.0-8.0 g/dL 18-150 6.3-8.3 g/dL Albumin 2.4 (L) 3.5 - 5.0 g/dL [facility] A/G ratio 0.6 (L) 0.7 - 3.8 [facility] Alkaline phosphatase 69 35 - 104 U/L [facility] AST 13 10 - 35 U/L [facility] ALT 7 5 - 50 U/L [facility] Total bilirubin <0.2 0.0 - 1.2 [facility] mg/dL [facility] Specimen Plasma specimen Performing Organization Address City/State/Zipcode Phone Number [facility] DEPARTMENT OF PATHOLOGY AND [address] [place] [address] GEN[address] [address] ECG 12 lead (10/05/2018 9:44 PM CDT) [facility] Ventricular rate 88 [facility] MUSE Atrial rate 88 [facility] MUSE VA interval 140 [facility] MUSE QRSD interval 88 [facility] MUSE QT interval 358 [facility] MUSE QTC interval 433 [facility] MUSE P axis 1 52 [facility] MUSE QRS axis 1 67 [facility] MUSE T wave axis 79 [facility] MUSE EKG impression Normal sinus [facility] MUSE rhythm-Normal ECG-In automated comparison with ECG of 23-NOV-2017 14:52,-No significant change was found- Specimen Narrative Performed At Performing Organization Address City/State/Zipcode Phone Number [facility] [address] [place] [address] after 12/16/2017 Advance Directives Patient has advance care planning documents on file. For more information, please contact:Margarito Arambula[address] [place] [address]
[2018-12-17 16:47] LABS: Absolute Lymphocytes (CBC) 1.2 K/uL (0.7-4.9); Basophils % 0.7 % (0-1.3); Eosinophils % 0.2 % (0-4.4); Lymphocytes % 7.7 % (15.3-44.8); MPV 8.2 fL (7.6-11.3); Monocytes % 16.3 % (3.3-12.3); RBC Red Blood Cell Count 2.84 M/uL (3.86-4.86)
[2018-12-17] MEDS ORDERED: METOPROLOL TARTRATE 5 MG/5 ML INJ IV ONE (17:03)
[2018-12-17 17:09] LABS: Absolute Lymphocytes (CBC) 1.1 K/uL (0.7-4.9); Basophils % 0.3 % (0-1.3); Eosinophils % 0.2 % (0-4.4); Hematocrit 29.1 % (36.0-45.0); Lymphocytes % 9.1 % (15.3-44.8); MPV 7.4 fL (7.6-11.3); Monocytes % 17.6 % (3.3-12.3); RBC Red Blood Cell Count 2.97 M/uL (3.86-4.86)
[2018-12-17 17:18] LABS: Protime INR 1.19
[2018-12-17] MEDS ORDERED: NA CHLORIDE 0.9% 1,000 ML ONE ×2 (17:19→23:26)
--- NOTE | 2018-12-17 17:29 | ER ---
Nurse's Notes [facility] Name: Fannie Plunkett Age: 58 yrs Sex: Female : 1960 Arrival Date: 12/17/2018 Time: 13:54 Bed 3 Private MD: Michael Villegas V Diagnosis: Atrial fibrillation and flutter-with RVR;Hypotension Presentation: 12/17 14:00 Presenting complaint: Patient states: Fatigue and general weakness x 1 week. ss also reports that when patient has her dialysis sessions, her blood pressure drops. Sent by Dr. West for evaluation. Transition of care: patient was not received from another setting of care. Onset of symptoms is unknown. Risk Assessment: Do you want to hurt yourself or someone else? Patient reports no desire to harm self or others. Care prior to arrival: None. 14:00 Method Of Arrival: Wheelchair ss 14:05 Initial Sepsis Screen: Does the patient meet any 2 criteria? HR > 90 bpm. Does the ss patient have a suspected source of infection? No. Patient's initial sepsis screen is negative. 14:05 Acuity: MODESTA 3 ss 16:02 Acuity: MODESTA 2 tw2 Triage Assessment: 15:20 General: Appears. Pain: Denies pain. tw2 Historical: - Allergies: 14:04 Codeine; ss 14:04 Morphine; ss 14:04 NSAIDS; 14:04 Tape; ss - Home Meds: 17:07 Adcirca 20 mg Oral tab 2 tabs nightly [Active]; allopurinol 100 mg Oral tab 1 tab tw2 nightly [Active]; aspirin 81 mg Oral TbEC 1 tab once daily [Active]; Atrovent 0.06 % Nasal spry 2 sprays 3 times per day [Active]; Bystolic 20 mg Oral tab 1 tab once daily [Active]; calcium carbonate 600 mg (1,500 mg) Oral tab 2 tab daily [Active]; Crestor 40 mg Oral tab 1 tab nightly [Active]; Depakote 500 mg Oral TbEC 1 tab (1 tab in am \T\ 2 tabs in pm) [Active]; Detrol LA 4 mg Oral cp24 1 cap nightly [Active]; Lasix 20 mg Oral tab 1 tab as needed [Active]; Klonopin 0.5 mg Oral tab 1 tab nightly [Active]; multivitamin with minerals Oral [Active]; levothyroxine 100 mcg tab 1 tab once daily [Active]; Lunesta 3 mg Oral tab 1 tab once daily [Active]; Nexium 40 mg Oral cpDR 1 cap once daily [Active]; nexabiotic [Active]; Procrit Inj [Active]; Restasis 0.05 % ophthalmic dpet 1 drop 2 times per day [Active]; Patanase 0.6 % nasal spry 2 sprays 2 times per day [Active]; Robaxin 750 mg Oral tab 2 tabs as needed [Active]; sinuPro [Active]; Vascepa 1 gram Oral cap 2 caps 2 times per day [Active]; Vitamin C 500 mg Oral tab 500 mg daily [Active]; Vitamin D3 2,000 unit Oral tab daily [Active]; Zyrtec 10 mg Oral tab 1 tab once daily [Active]; tramadol 50 mg Oral tab as needed [Active]; - PMHx: 14:04 Anemia; ibs; PAH; lymphedema; Hypothyroidism; Hypertension; Renal Disease; Arthritis; ss Sleep Apnea; PULMONARY HYPERTENSION; Hyperlipidemia; GERD; Depression; bowel obstruction; - PSHx: 14:04 fistula on R arm; Hysterectomy; IVC filter; Joint replacement; Hernia repair; ss - Immunization history:: Adult Immunizations up to date. - Social history:: Smoking status: Patient/guardian denies using tobacco. - Ebola Screening: : Patient denies exposure to infectious person Patient denies travel to an Ebola-affected area in the 21 days before illness onset. Screenin:38 Abuse screen: Denies threats or abuse. Nutritional screening: No deficits noted. tw2 Tuberculosis screening: No symptoms or risk factors identified. Fall Risk Secondary diagnosis (15 points) impaired mobility. Assessment: 16:28 General: Appears in no apparent distress. uncomfortable, Behavior is cooperative, tw2 quiet. Neuro: No deficits noted. Reports weakness. Cardiovascular: Heart tones S1 S2 present Clubbing of nail beds is absent Pulses are all present. Edema is 2+ to left ankle, left foot, right ankle and right foot. Respiratory: Airway is patent Respiratory effort is even, unlabored, Breath sounds are diminished bilaterally. Breath sounds with wheezes. GI: Abdomen is obese, Bowel sounds present X 4 quads. Derm: Skin is pale. Musculoskeletal: 16:55 Reassessment: pt being given metoprolol now. 17:03 Reassessment: Patient and/or family updated on plan of care and expected duration. Pain ch level reassessed. pt HR converted after 2doses of metoprolol. 17:10 Reassessment: Patient appears in no apparent distress at this time. pt cardioverts to NSR at 1710. 17:30 Reassessment: Patient appears in no apparent distress at this time. leaves , contact number is [phone]. heparin infusing now. 17:58 Reassessment: Patient appears in no apparent distress at this time. pt c/o increase in ch pain due to her chronic upper back pain. pt medicated per orders. 18:16 Reassessment: Patient appears in no apparent distress at this time. Patient and/or ch family updated on plan of care and expected duration. Pain level reassessed. Patient states feeling better. Patient states symptoms have improved. 18:38 Reassessment: Patient appears in no apparent distress at this time. attempted to call report, floor, floor states they cannot take the patient till 1930. 18:51 Reassessment: Patient appears in no apparent distress at this time. Patient and/or ch family updated on plan of care and expected duration. Pain level reassessed. report given to kayaking instructor nurse. 19:13 Reassessment: Patient appears in no apparent distress at this time. Patient and/or ch family updated on plan of care and expected duration. Pain level reassessed. when pt is straight cathed, pt HR increased to 162. pt HR decreases after two-3 min. pt tolerated well. Vital Signs: 14:04 BP 110 / 52; Pulse 101; Resp 22; Temp 98.2(TE); Pulse Ox 99% on 3 lpm NC; Weight 92 kg; ss Height 5 ft. 4 in. (162.56 cm); Pain 10/10; 15:39 BP 116 / 69; Pulse 77; Resp 20; Pulse Ox 97% on 4 lpm NC; tw2 16:02 Pulse 161; Resp 20; tw2 16:40 BP 149 / 82; Pulse 188; Resp 26; Pulse Ox 94% on 3 lpm NC; Pain 0/10; ch 16:50 BP 138 / 88; Pulse 172; Resp 27; Temp 97.2; Pulse Ox 100% on 3 lpm NC; ch 17:30 BP 96 / 69; Pulse 103; Resp 27; Temp 97.6(TE); Pulse Ox 95% on 5 lpm NC; Pain 6/10; ch 17:58 BP 110 / 73; Pulse 106; Resp 24; Temp 97.5; Pulse Ox 100% on 2 lpm NC; Pain 0/10; ch 18:38 BP 92 / 53; Pulse 105; Resp 23; Pulse Ox 100% on 2 lpm NC; Pain 0/10; ch 19:20 BP 126 / 76; Pulse 110; Resp 30; Pulse Ox 94% on 3 lpm NC; tl2 14:04 Body Mass Index 34.81 (92.00 kg, 162.56 cm) ss 16:02 provider SIDDHARTH Peres notified of run of SVT, ekg performed, ekg printed from bedside tw2 monitor. Vitals: 16:02 Cardiac Rhythm Assessment SVT Other provider notified and aware. tw2 16:50 Cardiac Rhythm Assessment Atrial fibrillation W/rapid ventricular response. ED Course: 13:54 Patient arrived in ED. mr 13:55 Michael Villegas MD is Private Physician. mr 14:04 Arm band placed on left wrist. ss 14:05 Triage completed. ss 14:37 EKG done, by aircraft launch and recovery technician. reviewed by Hao Todd MD. sm3 15:23 Gustavo Joiner [facility]. jr8 15:23 Hao Todd MD is Attending Physician. jr8 15:26 Huyen Mckee, MARC is Primary Nurse. tw2 15:26 Bed in low position. Call light in reach. Adult w/ patient. hospital monitor on. Pulse tw2 ox on. NIBP on. 15:30 Missed attempt(s): 22 gauge 24 gauge in left forearm. antecubital area. 16:21 Radiology exam delayed due to IV insertion attempt and/or patient not having mh1 appropriate IV at this time. 16:42 Assisted provider with central line placement. Set up central line tray. Triple lumen line placed in right femoral. Line placed by Gustavo MESSINA Placement verified by blood return, Dressed with Tegaderm, Blood was collected. Patient tolerated well. Before procedure, did Practitioner(s) obtain informed consent? Yes. Patient \T\ family education about procedure, CLABSI prevention and S/S of infection? Yes. Time-out/Briefing performed prior to start of procedure? Yes. Was handwashing/sanitizing done immediately prior to procedure? Yes. Was patient positioned to in a way to prevent air embolism? Yes. Was procedure site sterilized? Yes, with chlorhexidine. Was the site allowed to dry? Yes. Was local anesthetic and/or sedation utilized? Yes. During the procedure, did the Practitioner(s) maintain a sterile field? Yes. Were unused ports clamped during insertion? Yes. Was a 2nd qualified MD obtained after 3 unsuccessful insertion attempts? No. Was blood aspirated from each lumen? Yes. After the procedure, did the Practitioner(s) clean the site and apply a sterile dressing? Yes. 16:50 Warm blanket given. Pillow given. ch 17:27 XRAY Chest (1 view) In Process Unspecified. EDMS 17:28 Michael Villegas MD is Hospitalizing Provider. jr8 20:02 Patient admitted, IV remains in place. tl2 Administered Medications: 16:50 Drug: Metoprolol 5 mg Route: IVP; Infused Over: 5 mins; Site: right femoral; ch 16:52 Drug: NS 0.9% 500 ml Route: IV; Rate: bolus; Site: right femoral; ch 17:25 Follow up: IV Status: Completed infusion; IV Intake: 500ml ch 16:55 Drug: Metoprolol 5 mg Route: IVP; Rate: 5 calculated rate; Infused Over: 5 mins; Site: right femoral; 17:05 Follow up: Response: No adverse reaction; Marked relief of symptoms; Cardiac rhythm ch changed 17:26 CANCELLED (wrong order): NS 0.9% 1000 ml IV at 1000 ml once ch 17:30 Drug: Heparin (DVT/PE Drip) 1656 units/hr - (HEParin 57439 units, D5W 500 ml) ch {Co-Signature: tw2 (Huyen Mckee RN).} Route: IV; Rate: calculated rate; Site: right femoral; 18:01 Follow up: IV Status: Infusion continued upon admission ch 18:10 Drug: fentaNYL (PF) 25 mcg Route: IVP; Site: right femoral; ch 19:08 Follow up: Response: No adverse reaction; Pain is decreased ch 18:10 Drug: Tylenol 1000 mg Route: PO; ch 19:35 Follow up: Response: No adverse reaction ch 18:40 Drug: Multaq 400 mg Route: PO; ch 18:48 Follow up: Response: No adverse reaction; Marked relief of symptoms ch Intake: 17:25 IV: 500ml; Total: 500ml. ch Outcome: 17:28 Decision to Hospitalize by Provider. jrLex 20:01 Admitted to ICU accompanied by nurse, accompanied by tech, family with patient, via tl2 stretcher, room 6, with oxygen, on monitor, with chart, Report called to MARC Osborne by day shift nurse 20:01 Condition: stable 20:01 Discharge instructions given to patient, family, Instructed on the need for admit. 20:03 Patient left the ED. tl2 Signatures: Dispatcher [employer] EDMS Yulia Ohara, RN MARC MckeonJasmin mr ParsonsLyly 1 Divine Samuel RN RN Gustavo Joiner PA PA jr8 Huyen Mckee RN RN tw2 Brie Zapien RN RN 2 Lorena Narayanan [facility] Huyen Mckee RN tw2
--- NOTE | 2018-12-17 17:29 | EDPHYS ---
Physician Documentation [facility] Name: Fannie Plunkett Age: 58 yrs Sex: Female : 1960 Arrival Date: 12/17/2018 Time: 13:54 Bed 3 Private MD: Michael Villegas V ED Physician Hao Todd HPI: 12/17 15:48 This 58 yrs old Female presents to ER via Wheelchair with complaints of jr8 Weakness, Blood Pressure Problem. 15:48 Patient stated that she has had decreased appetite for the past week with general jr8 malaise. While at dialysis today only could take 300 ml off of her before BP became too low. Stated that she felt worse after dialysis. Her life skills educator referred her to ED at that time for further evaluation. Denies CP or SOB. Severity of symptoms: At their worst the symptoms were moderate in the emergency department the symptoms are unchanged. It is unknown whether or not the patient has had similar symptoms in the past. The patient has not recently seen a physician. Historical: - Allergies: 14:04 Codeine; ss 14:04 Morphine; ss 14:04 NSAIDS; ss 14:04 Tape; ss - Home Meds: 17:07 Adcirca 20 mg Oral tab 2 tabs nightly [Active]; allopurinol 100 mg Oral tab 1 tab tw2 nightly [Active]; aspirin 81 mg Oral TbEC 1 tab once daily [Active]; Atrovent 0.06 % Nasal spry 2 sprays 3 times per day [Active]; Bystolic 20 mg Oral tab 1 tab once daily [Active]; calcium carbonate 600 mg (1,500 mg) Oral tab 2 tab daily [Active]; Crestor 40 mg Oral tab 1 tab nightly [Active]; Depakote 500 mg Oral TbEC 1 tab (1 tab in am \T\ 2 tabs in pm) [Active]; Detrol LA 4 mg Oral cp24 1 cap nightly [Active]; Lasix 20 mg Oral tab 1 tab as needed [Active]; Klonopin 0.5 mg Oral tab 1 tab nightly [Active]; multivitamin with minerals Oral [Active]; levothyroxine 100 mcg tab 1 tab once daily [Active]; Lunesta 3 mg Oral tab 1 tab once daily [Active]; Nexium 40 mg Oral cpDR 1 cap once daily [Active]; nexabiotic [Active]; Procrit Inj [Active]; Restasis 0.05 % ophthalmic dpet 1 drop 2 times per day [Active]; Patanase 0.6 % nasal spry 2 sprays 2 times per day [Active]; Robaxin 750 mg Oral tab 2 tabs as needed [Active]; sinuPro [Active]; Vascepa 1 gram Oral cap 2 caps 2 times per day [Active]; Vitamin C 500 mg Oral tab 500 mg daily [Active]; Vitamin D3 2,000 unit Oral tab daily [Active]; Zyrtec 10 mg Oral tab 1 tab once daily [Active]; tramadol 50 mg Oral tab as needed [Active]; - PMHx: 14:04 Anemia; ibs; PAH; lymphedema; Hypothyroidism; Hypertension; Renal Disease; Arthritis; ss Sleep Apnea; PULMONARY HYPERTENSION; Hyperlipidemia; GERD; Depression; bowel obstruction; - PSHx: 14:04 fistula on R arm; Hysterectomy; IVC filter; Joint replacement; Hernia repair; ss - Immunization history:: Adult Immunizations up to date. - Social history:: Smoking status: Patient/guardian denies using tobacco. - Ebola Screening: : Patient denies exposure to infectious person Patient denies travel to an Ebola-affected area in the 21 days before illness onset. ROS: 15:48 Constitutional: Negative for fever, chills, and weight loss. Positive for general jr8 malaise 15:48 Neuro: Positive for weakness, Negative for altered mental status, dizziness, gait disturbance, headache, loss of consciousness, seizure activity, syncope, near syncope. 15:48 All other systems are negative. Exam: 15:48 Eyes: Pupils equal round and reactive to light, extra-ocular motions intact. Lids and jr8 lashes normal. Conjunctiva and sclera are non-icteric and not injected. Cornea within normal limits. Periorbital areas with no swelling, redness, or edema. ENT: Nares patent. No nasal discharge, no septal abnormalities noted. Tympanic membranes are normal and external auditory canals are clear. Oropharynx with no redness, swelling, or masses, exudates, or evidence of obstruction, uvula midline. Mucous membranes moist. Neck: Trachea midline, no thyromegaly or masses palpated, and no cervical lymphadenopathy. Supple, full range of motion without nuchal rigidity, or vertebral point tenderness. No Meningismus. Cardiovascular: Regular rate and rhythm with a normal S1 and S2. No gallops, murmurs, or rubs. Normal PMI, no JVD. No pulse deficits. Respiratory: Lungs have equal breath sounds bilaterally, clear to auscultation and percussion. No rales, rhonchi or wheezes noted. No increased work of breathing, no retractions or nasal flaring. Abdomen/GI: Soft, non-tender, with normal bowel sounds. No distension or tympany. No guarding or rebound. No evidence of tenderness throughout. Back: No spinal tenderness. No costovertebral tenderness. Full range of motion. Skin: Warm, dry with normal turgor. Normal color with no rashes, no lesions, and no evidence of cellulitis. MS/ Extremity: Pulses equal, no cyanosis. Neurovascular intact. Full, normal range of motion. Neuro: Awake and alert, GCS 15, oriented to person, place, time, and situation. Cranial nerves II-XII grossly intact. Motor strength 5/5 in all extremities. Sensory grossly intact. Cerebellar exam normal Vital Signs: 14:04 BP 110 / 52; Pulse 101; Resp 22; Temp 98.2(TE); Pulse Ox 99% on 3 lpm NC; Weight 92 kg; ss Height 5 ft. 4 in. (162.56 cm); Pain 10/10; 15:39 BP 116 / 69; Pulse 77; Resp 20; Pulse Ox 97% on 4 lpm NC; tw2 16:02 Pulse 161; Resp 20; tw2 16:40 BP 149 / 82; Pulse 188; Resp 26; Pulse Ox 94% on 3 lpm NC; Pain 0/10; ch 16:50 BP 138 / 88; Pulse 172; Resp 27; Temp 97.2; Pulse Ox 100% on 3 lpm NC; ch 17:30 BP 96 / 69; Pulse 103; Resp 27; Temp 97.6(TE); Pulse Ox 95% on 5 lpm NC; Pain 6/10; ch 17:58 BP 110 / 73; Pulse 106; Resp 24; Temp 97.5; Pulse Ox 100% on 2 lpm NC; Pain 0/10; ch 18:38 BP 92 / 53; Pulse 105; Resp 23; Pulse Ox 100% on 2 lpm NC; Pain 0/10; ch 19:20 BP 126 / 76; Pulse 110; Resp 30; Pulse Ox 94% on 3 lpm NC; tl2 14:04 Body Mass Index 34.81 (92.00 kg, 162.56 cm) ss 16:02 provider SIDDHARTH Peres notified of run of SVT, ekg performed, ekg printed from bedside tw2 monitor. Procedures: 16:54 Central Line: the site was prepped with Betadine, in sterile fashion, a triple lumen jr8 catheter was inserted, in the right femoral vein, in 1 attempts. placement was verified, by blood return, the site was dressed with 4X4s, Tegaderm, foam tape, using sterile technique, the patient tolerated the procedure, well. MDM: 15:23 Patient medically screened. jr8 16:54 ED course: Patient without any peripheral access. Attempts made via US guided IV jr8 without success. HR elevated to unstable level. Central line successfully placed at that time to secure access for medication and stabilization . 17:16 Data reviewed: vital signs, nurses notes, lab test result(s), EKG, radiologic studies, jr8 plain films, and as a result, I will admit patient. Data interpreted: Pulse oximetry: on 3L(s) per nasal canula, is 100 %. Interpretation: normal. Counseling: I had a detailed discussion with the patient and/or guardian regarding: the historical points, exam findings, and any diagnostic results supporting the discharge/admit diagnosis, lab results, radiology results, the need for further work-up and treatment in the hospital. ED course: Patient treated for new onset Atrial fib with RVR. Nephrology consulted and will see patient as well. Will be started on heparin . 18:11 ED course: Dr. Salmeron consulted as well and will see patient. To put patient on jr8 Bystolic 5 QD and Multaq 400 BID. 12/17 15:36 Order name: Basic Metabolic Panel jr8 12/17 15:36 Order name: CBC with Diff; Complete Time: 16:56 jr8 12/17 15:36 Order name: PT-INR jr8 12/17 16:48 Order name: CBC with Diff; Complete Time: 17:29 bd 12/17 16:48 Order name: Basic Metabolic Panel; Complete Time: 17:35 bd 12/17 16:48 Order name: Magnesium; Complete Time: 17:35 bd 12/17 16:48 Order name: BNP; Complete Time: 17:35 12/17 16:48 Order name: Ptt, Activated; Complete Time: 17:29 12/17 16:48 Order name: PT-INR; Complete Time: 17:29 12/17 16:49 Order name: Troponin (emerg Dept Use Only); Complete Time: 17:35 12/17 14:08 Order name: EKG; Complete Time: 14:10 12/17 15:36 Order name: XRAY Chest (1 view); Complete Time: 17:38 [facility] 12/17 17:11 Order name: Blood Culture Adult (2) [facility] 12/17 18:00 Order name: EKG Electrocardiogram [facility] 12/17 18:01 Order name: EKG Electrocardiogram [facility] 12/17 18:16 Order name: Diet Heart Healthy; Complete Time: 18:17 12/17 19:19 Order name: UA tl2 12/17 19:20 Order name: UA MICROSCOPIC 2 12/17 19:58 Order name: Urinalysis W/Microscopic; Complete Time: 20:21 [facility] 12/17 14:08 Order name: EKG - Nurse/Tech; Complete Time: 15:40 12/17 15:36 Order name: Cardiac monitoring; Complete Time: 15:39 [facility] 12/17 15:36 Order name: IV Saline Lock; Complete Time: 17:49 [facility] 12/17 15:36 Order name: Labs collected and sent; Complete Time: 17:49 [facility] 12/17 15:36 Order name: O2 Per Protocol; Complete Time: 15:39 [facility] 12/17 15:36 Order name: O2 Sat Monitoring; Complete Time: 15:40 [facility] 12/17 16:27 Order name: Labs - recollect needed; Complete Time: 19:24 12/17 17:11 Order name: Straight Cath - Urine; Complete Time: 19:24 [facility] 12/17 18:23 Order name: CONS Physician Consult EDCO Administered Medications: 16:50 Drug: Metoprolol 5 mg Route: IVP; Infused Over: 5 mins; Site: right femoral; ch 16:52 Drug: NS 0.9% 500 ml Route: IV; Rate: bolus; Site: right femoral; ch 17:25 Follow up: IV Status: Completed infusion; IV Intake: 500ml ch 16:55 Drug: Metoprolol 5 mg Route: IVP; Rate: 5 calculated rate; Infused Over: 5 mins; Site: right femoral; 17:05 Follow up: Response: No adverse reaction; Marked relief of symptoms; Cardiac rhythm ch changed 17:26 CANCELLED (wrong order): NS 0.9% 1000 ml IV at 1000 ml once ch 17:30 Drug: Heparin (DVT/PE Drip) 1656 units/hr - (HEParin 53479 units, D5W 500 ml) ch {Co-Signature: tw2 (Huyen Mckee RN).} Route: IV; Rate: calculated rate; Site: right femoral; 18:01 Follow up: IV Status: Infusion continued upon admission ch 18:10 Drug: fentaNYL (PF) 25 mcg Route: IVP; Site: right femoral; 19:08 Follow up: Response: No adverse reaction; Pain is decreased ch 18:10 Drug: Tylenol 1000 mg Route: PO; ch 19:35 Follow up: Response: No adverse reaction ch 18:40 Drug: Multaq 400 mg Route: PO; ch 18:48 Follow up: Response: No adverse reaction; Marked relief of symptoms ch Disposition: 12/17/18 17:28 Hospitalization ordered by Michael Villegas for Inpatient Admission. Preliminary diagnosis are Atrial fibrillation and flutter - with RVR, Hypotension. - Bed requested for Intensive Care Unit. - Status is Inpatient Admission. tl2 - Condition is Fair. - Problem is new. - Symptoms have improved. UTI on Admission? No Addendum: 12/21/2018 07:30 Co-signature as Attending Physician, Hao Todd MD. r n Signatures: Dispatcher [employer] [facility] Susie Silva Christina, RN RN Hao Todd MD MD rn Smirch, Shelby, RN RN ss Roszak, Josh, SIDDHARTH PA jr8 Huyen Mckee RN RN tw2 Brie Zapien RN RN tl2 Huyen Mckee RN tw2 Corrections: (The following items were deleted from the chart) 12/17 15:50 15:48 Eyes: Pupils equal round and reactive to light, extra-ocular motions intact. Lids jr8 and lashes normal. Conjunctiva and sclera are non-icteric and not injected. Cornea within normal limits. Periorbital areas with no swelling, redness, or edema. ENT: Nares patent. No nasal discharge, no septal abnormalities noted. Tympanic membranes are normal and external auditory canals are clear. Oropharynx with no redness, swelling, or masses, exudates, or evidence of obstruction, uvula midline. Mucous membranes moist. Neck: Trachea midline, no thyromegaly or masses palpated, and no cervical lymphadenopathy. Supple, full range of motion without nuchal rigidity, or vertebral point tenderness. No Meningismus. Cardiovascular: Regular rate and rhythm with a normal S1 and S2. No gallops, murmurs, or rubs. Normal PMI, no JVD. No pulse deficits. Respiratory: Lungs have equal breath sounds bilaterally, clear to auscultation and percussion. No rales, rhonchi or wheezes noted. No increased work of breathing, no retractions or nasal flaring. Abdomen/GI: Soft, non-tender, with normal bowel sounds. No distension or tympany. No guarding or rebound. No evidence of tenderness throughout. Back: No spinal tenderness. No costovertebral tenderness. Full range of motion. Skin: Warm, dry with normal turgor. Normal color with no rashes, no lesions, and no evidence of cellulitis. MS/ Extremity: Pulses equal, no cyanosis. Neurovascular intact. Full, normal range of motion. Neuro: Awake and alert, GCS 15, oriented to person, place, time, and situation. Cranial nerves II-XII grossly intact. Motor strength 5/5 in all extremities. Sensory grossly intact. Cerebellar exam normal. Normal gait. jr8 17:19 15:37 Basic Metabolic Panel ordered. [facility]CO 17:19 15:37 TROPONIN (EMERG DEPT USE ONLY)+C.LAB.BRZ ordered. [facility] EDMS 17:20 15:37 MAGNESIUM+C.LAB.BRZ ordered. [facility] EDMS 17:20 15:37 PROBNP+C.LAB.BRZ ordered. [facility] EDMS 17:26 17:03 NS 0.9% 1000 ml IV at 1000 ml once ordered. jr8 17:29 17:28 Hospitalization Ordered by Michael Villegas MD for Inpatient Admission. Preliminary jr8 diagnosis is Atrial fibrillation and flutter - with RVR; Hypotension. Bed requested for Intensive Care Unit. Status is Inpatient Admission. Condition is Fair. Problem is new. Symptoms have improved. UTI on Admission? No. jr8 18:11 17:29 12/17/2018 17:28 Hospitalization Ordered by Michael Villegas MD for Inpatient jr8 Admission. Preliminary diagnosis is Atrial fibrillation and flutter - with RVR; Hypotension. Bed requested for Telemetry/MedSurg (Inpatient). Status is Inpatient Admission. Condition is Fair. Problem is new. Symptoms have improved. UTI on Admission? No. jr8 18:32 18:11 12/17/2018 17:28 Hospitalization Ordered by Michael Villegas MD for Inpatient bd Admission. Preliminary diagnosis is Atrial fibrillation and flutter - with RVR; Hypotension. Bed requested for Intensive Care Unit. Status is Inpatient Admission. Condition is Fair. Problem is new. Symptoms have improved. UTI on Admission? No. jr8 20:03 18:32 12/17/2018 17:28 Hospitalization Ordered by Michael Villegas MD for Inpatient tl2 Admission. Preliminary diagnosis is Atrial fibrillation and flutter - with RVR; Hypotension. Bed requested for Intensive Care Unit. Status is Inpatient Admission. Condition is Fair. Problem is new. Symptoms have improved. UTI on Admission? No. bd
[2018-12-17 17:30] LABS: BUN Blood Urea Nitrogen 46 mg/dL (7-18); Bicarbonate 29 mmol/L (21-32); Glucose Level 110 mg/dL (74-106); Magnesium 2.4 mg/dL (1.8-2.4); NT PRO-BNP 21265 pg/mL (<125); Potassium 4.3 mmol/L (3.5-5.1); Sodium Level 141 mmol/L (136-145); Troponin (Emerg Dept Use Only) < 0.02 ng/mL (0.0-0.045)
[2018-12-17] MEDS ORDERED: HEPARIN/D5W 25,000 UNIT/500 ML BAG IV ONE (17:33)
--- NOTE | 2018-12-17 17:35 | RAD REPORT ---
EXAM DESCRIPTION: RAD - Chest Single View - 12/17/2018 5:26 pm CLINICAL HISTORY: DYSPNEA Chest pain. COMPARISON: Chest Single View dated 12/05/2018; Chest Single View dated 11/16/2018; Chest Single View d ated 11/10/2018; Chest Single View dated 11/08/2018 FINDINGS: Portable technique limits examination quality. Mild interstitial pulmonary edema seen. The heart is significantly enlarged in size. Left-sided dialy sis catheter is in place. IMPRESSION: Significant cardiomegaly seen.
[2018-12-17] MEDS ORDERED: FENTANYL CITR 100 MCG/2 ML ONE (18:05)
[2018-12-17] MEDS ORDERED: ACETAMINOPHEN 500 MG TAB ONE (18:05)
[2018-12-17] MEDS ORDERED: DRONEDARONE 400 MG TAB PO ONE (19:00)
[2018-12-17 19:52] LABS: Urine Appearance CLOUDY; Urine Blood NEGATIVE (NEG); Urine Color YELLOW; Urine Glucose NEGATIVE (NEG); Urine Protein 1+ (NEG); Urine Urobilinogen 0.2 mg/dL (0.2-1.0)
[2018-12-17 19:56] LABS: Urine Bilirubin NEGATIVE (NEG)
[2018-12-17 20:02] LABS: Urine Amorphous Sediment 4+ /HPF (NONE SEEN); Urine Bacteria <20 /HPF (<20); Urine Culture Reflex Order REFLEXED; Urine Mucus 1+ /HPF (NONE SEEN); Urine RBC <5 /HPF (NONE SEEN)
[2018-12-17] MEDS ORDERED: VANCOMYCIN 2 GM in NA CHLORIDE 0.9% 500 ML IVPB ONE (20:03)
[2018-12-17] MEDS ORDERED: Meropenem 1000 MG/VIAL IV SCH (20:03)
[2018-12-17] MEDS ORDERED: METOPROLOL TARTRATE 5 MG/5 ML INJ IV STA ×2 (21:16→22:28)
--- NOTE | 2018-12-17 21:27 | P.HP ---
Certification for Inpatient Patient admitted to: Inpatient With expected LOS: >2 Midnights Practitioner: I am a practitioner with admitting privileges, knowledge of patient current condition, hospital course, and medical plan of care. Services: Services provided to patient in accordance with Admission requirements found in Title 42 Section 412.3 of the Code of Federal Regulations Patient History Date of Service: 12/17/18 Reason for admission: WEAK, LOW BP, CLAMMY History of Present Illness: MS. DELACRUZ IS A ESRD PATIENT ON HEMODIALYSIS JUST CAME OUT OF [place] AFTER BEING IN FOR SEPSIS, OBTUNDATION, HYPERCAPNEA, WAS GOOD FORA WEEK AND THEN GOT WORSE AGAIN WITH WEAKNESS, DYSPNEA, FATIGUE AND CLAMMINESS. I SAW HER IN ER. I FOUND HER TO BE SEPTC AND ASKED THE PA TAKING CARE OF TO GET HER ON VANCOMYCIN AND MERREM QUICKLY. HE ALREADY HAS DONE BC-2 AND UA UCS. Allergies codeine [Codeine] Allergy (Mild, Verified 09/03/18 03:33) Itching morphine Adverse Reaction (Severe, Verified 09/03/18 03:33) Decreased blood pressure NSAIDS (Non-Steroidal Anti-Inflamma Adverse Reaction (Intermediate, Verified 10/19 03:33) kidney insufficiency Tape Allergy (Uncoded 07/05/18 10:37) Unknown Home Medications: Adcirca 20mg 2 tab PO BEDTIME 09/03/18 Allopurinol [Zyloprim*] 100 mg PO BEDTIME 09/03/18 Ascorbic Acid [Vitamin C] 500 mg PO DAILY 09/03/18 Aspirin [Aspir-Low] 81 mg PO DAILY 09/03/18 Calcium Carbonate [Calcium] 2 tab PO DAILY 09/03/18 Cholecalciferol (Vitamin D3) [Vitamin D3] 2,000 unit PO DAILY 09/03/18 Cyclosporine [Restasis] 1 drop EACH EYE BID 09/03/18 Divalproex Sodium [Depakote] 1,000 mg PO BEDTIME 09/03/18 Divalproex Sodium [Depakote] 500 mg PO DAILY 09/03/18 Esomeprazole Mag Trihydrate [Nexium] 40 mg PO DAILY 09/03/18 Icosapent Ethyl [Vascepa] 2 cap PO BID 09/03/18 Ipratropium [Atrovent 0.03% (21MCG)/[place] Nasal*] 2 sprays NS TID 09/03/18 Levothyroxine Sodium 100 mcg PO DAILY 09/03/18 Loratadine [Claritin*] 10 mg PO BEDTIME 09/03/18 Multivitamin [Multivitamins] 1 each PO BEDTIME 09/03/18 Nebivolol HCl [Bystolic*] 40 mg PO DAILY 09/03/18 Olopatadine HCl [Patanase] 2 spray NS BID 09/03/18 Rosuvastatin Calcium [Crestor] 40 mg PO BEDTIME 09/03/18 Tolterodine Tartrate [Detrol LA*] 4 mg PO BEDTIME 09/03/18 Tramadol HCl [Ultram] 50 mg PO Q8H PRN 09/03/18 Eszopiclone 3 mg PO BEDTIME 11/09/18 Fluticasone [Flonase 50mcg Nasal [place]] 2 sprays NS DAILY 11/11/18 - Past Medical/Surgical History Diabetic: No -: sleep apnea -: IBS/GERD -: Hypothyroidism -: ANEMIA -: Pulmonary HTN -: back pain/ pinch nerves -: CKD, seasonal allergies -: HTN -: DVT -: hypertriglyceridemia -: hyperlipidemia -: lymphedema -: Hysterectomy -: Hernia repair -: Knee SX -: colon resection -: back Sx, Sciatica -: cyst removed from forehead x2 -: breast biopsy x2 -: fistula PAULINA - Family History Mother -: Hypertension, Blood disorders - Social History Alcohol use: No CD- Drugs: No Caffeine use: Yes Review of Systems 10-point ROS is otherwise unremarkable General: Weakness, Other Physical Examination - Vital Signs Temperature: 97.5 F Blood Pressure: 126/76 Pulse: 110 Respirations: 30 - Physical Exam General: Alert, Moderate distress, Obese HEENT: Atraumatic, PERRLA, Mucous membr. moist/pink, EOMI, Sclerae nonicteric Neck: Supple, 2+ carotid pulse no bruit, No LAD, Without JVD or thyroid abnormality Respiratory: Diminished (RAPID BREATHING.) Cardiovascular: Regular rate/rhythm, Normal S1 S2 Gastrointestinal: Normal bowel sounds, No tenderness Musculoskeletal: No tenderness Integumentary: No rashes, Other (CLAMMY SKIN BOTH UPPER AND LOWER LIMBS DISTALLY.) Neurological: Abnormal strength (DIFFUSE WEAKNES.) Lymphatics: No axilla or inguinal lymphadenopathy - Studies Laboratory Data (last 24 hrs) 12/17/18 16:40: PT 14.0 H, INR 1.19, APTT 17.3 L 12/17/18 16:40: Sodium 141, Potassium 4.3, BUN 46 H, Creatinine 4.99 H, Glucose 110 H, Magnesium 2.4 12/17/18 16:40: WBC 12.2 H D, Hgb 8.9 L, Hct 29.1 L, Plt Count 181 12/17/18 16:10: WBC 14.9 H D, Hgb 8.5 L, Hct 28.0 L, Plt Count 177 12/17/18 16:10: Sodium Cancelled, Potassium Cancelled, BUN Cancelled, Creatinine Cancelled, Glucose Cancelled, Magnesium Cancelled 12/17/18 15:36: PT Cancelled, INR Cancelled Assessment and Plan - Problems (Diagnosis) (1) Septic shock Current Visit: Yes Status: Acute Plan: SHE IS SEPTIC AGAIN. I HAD TALKED TO DR. WINTERS ABOUT THE CATHETER FOR HD. IF THIS COULD BE SOURCE OF INFECTION. IN [place] THIS WAS RULED OUT. SHE WAS TREATED FOR UROSEPSIS IN [place]. SEE HPI FOR DETAILS. I SUSPECT THE CATHTER NEEDS TO COME OUT IT IS FOREIGN BODY AND SHE IS GETTING SEPTIC AGAIN. I CALLED DR. WINTERS. (2) ESRD (end stage renal disease) on dialysis Current Visit: No Status: Chronic Plan: ON HD CONTINUE. (3) Pickwickian syndrome Current Visit: No Status: Chronic Plan: ABG CHECK LEAVE OXYGEN TO LEAST POSSIBLE. (4) Pulmonary HTN Onset Date: 11/23/17 Current Visit: No Status: Chronic Plan: NO CHANGES. SHE HAS HAD THIS FOR LONG DURATION. - Advance Directives Does patient have a Living Will: No Does patient have a Durable POA for Healthcare: No
[2018-12-17] MEDS ORDERED: VANCOMYCIN 1 GM/VIAL ONE (22:02)
[2018-12-17] MEDS ORDERED: Meropenem 1 GM/100 ML BAG ONE (22:03)
[2018-12-17] MEDS ORDERED: NA CHLORIDE 0.9% 500 ML ONE (22:03)
--- NOTE | 2018-12-17 22:21 | EKG ---
Test Date: 2018-12-17 Test Time: 16:04:44 [employer]: MEASUREMENT RESULTS: Intervals: Rate: 106 GA: 204 QRSD: 94 QT: 318 QTc: 422 [place]: P: 28 GA: 204 QRS: 26 T: -72 INTERPRETIVE STATEMENTS: Sinus tachycardia Possible Left atrial enlargement T wave abnormality, consider inferolateral ischemia Abnormal ECG Compared to ECG 12/17/2018 14:23:27 Possible ischemia now present Atrial premature complex(es) no longer present T-wave abnormality still present Electronically Signed On 12-17-18 22:20:34 CDT by Khang Salmeron
--- NOTE | 2018-12-17 22:21 | EKG ---
Test Date: 2018-12-17 Test Time: 16:25:59 Staffing Rn: YAQUELIN MEASUREMENT RESULTS: Intervals: Rate: 142 MT: QRSD: 90 QT: 306 QTc: 470 [place]: P: MT: QRS: 29 T: 226 INTERPRETIVE STATEMENTS: Atrial fibrillation with rapid ventricular response ST & T wave abnormality, consider inferolateral ischemia Abnormal ECG Compared to ECG 12/17/2018 16:04:44 ST (T wave) deviation now present Sinus tachycardia no longer present T-wave abnormality no longer present Possible ischemia still present Electronically Signed On 12-17-18 22:20:24 CDT by Khang Salmeron
--- NOTE | 2018-12-17 22:23 | EKG ---
Test Date: 2018-12-17 Test Time: 14:23:27 Business Banking Officer: GEOVANI MEASUREMENT RESULTS: Intervals: Rate: 101 OR: 132 QRSD: 92 QT: 338 QTc: 438 [place]: P: 20 OR: 132 QRS: 19 T: 257 INTERPRETIVE STATEMENTS: Sinus tachycardia with premature atrial complexes Nonspecific T wave abnormality Abnormal ECG Compared to ECG 12/05/2018 17:48:31 Atrial premature complex(es) now present T-wave abnormality now present Electronically Signed On 12-17-18 22:22:48 CDT by Khang Salmeron
[2018-12-17] MEDS ORDERED: AMIODARONE HCL 150 MG in D5W 100 ML IV STA (22:26)
[2018-12-17] MEDS ORDERED: AMIODARONE HCL 150 MG/3 ML INJ IV ONE ×2 (22:44→22:53)
[2018-12-17] MEDS ORDERED: D5W 100 ML IV ONE (22:45)
[2018-12-17] MEDS ORDERED: AMIODARONE HCL 900 MG in Dextrose 5%-Water 482 ML IV SCH (23:00)
[2018-12-17] MEDS ORDERED: NA CHLORIDE 0.9% 500 ML IV ONE (23:10)
[2018-12-17] MEDS: HEPARIN/D5W 25,000 UNIT/500 ML BAG IV SCH (23:59)
[2018-12-18 05:22] LABS: Absolute Lymphocytes (CBC) 1.1 K/uL (0.7-4.9); Basophils % 0.3 % (0-1.3); Eosinophils % 0.1 % (0-4.4); Hematocrit 26.7 % (36.0-45.0); Lymphocytes % 10.2 % (15.3-44.8); MPV 7.3 fL (7.6-11.3); Monocytes % 16.7 % (3.3-12.3); RBC Red Blood Cell Count 2.66 M/uL (3.86-4.86)
--- NOTE | 2018-12-18 05:30 | EKG ---
Test Date: 2018-12-17 Test Time: 23:25:20 [place]: RT Daniel MEASUREMENT RESULTS: Intervals: Rate: 82 SC: 140 QRSD: 98 QT: 432 QTc: 504 [place]: P: 35 SC: 140 QRS: 26 T: -56 INTERPRETIVE STATEMENTS: Normal sinus rhythm Nonspecific T wave abnormality Prolonged QT Abnormal ECG Compared to ECG 12/17/2018 16:25:59 T-wave abnormality now present Prolonged QT interval now present Atrial fibrillation no longer present Electronically Signed On 12-18-18 05:29:50 CDT by Khang Salmeron
[2018-12-18 05:41] LABS: Potassium 4.9 mmol/L (3.5-5.1)
[2018-12-18 05:49] LABS: Blood Morphology Comment NOT SEEN (NOT SEEN); Platelet Estimate ADEQ
[2018-12-18] MEDS: LEVOTHYROXINE SOD 0.1 MG TAB PO SCH (06:22)
[2018-12-18] MEDS: PANTOPRAZOLE 40MG TABLET PO SCH (06:22)
[2018-12-18] MEDS ORDERED: VANCOMYCIN/NS 1 gm 1 GM/250 ML BAG IV SCH (07:15)
[2018-12-18] MEDS: IPRATROPIUM NS SCH ×3 (07:30→16:30)
[2018-12-18] MEDS: [UNRECOGNIZED DRUG - OTHER] PO SCH (09:00)
[2018-12-18] MEDS ORDERED: FUROSEMIDE 20 MG/ 2ML VIAL IV SCH (09:00)
[2018-12-18] MEDS ORDERED: DRONEDARONE 400 MG TAB PO SCH (09:00)
[2018-12-18] MEDS: OLOPATADINE HCL NS SCH ×3 (09:00→21:00)
[2018-12-18] MEDS ORDERED: NEBIVOLOL HCL 5 MG TAB PO SCH ×2 (09:00)
[2018-12-18] MEDS: CYCLOSPORINE EACH EYE SCH ×2 (09:00→20:18)
--- NOTE | 2018-12-18 11:00 | RAD REPORT ---
EXAM DESCRIPTION: RAD - Chest Single View - 12/18/2018 10:49 am CLINICAL HISTORY: sob Chest pain. COMPARISON: Chest Single View dated 12/17/2018; Chest Single View dated 12/05/2018; Chest Single View d ated 11/16/2018; Chest Single View dated 11/10/2018 FINDINGS: Portable technique limits examination quality. Small left pleural effusion remains unchanged. Lung aeration is stable with mild interstitial edema l ikely present. Prominent cardiomegaly again noted. Left-sided venous catheter is stable. IMPRESSION: Examination is stable since preceding day.
[2018-12-18] MEDS: DIVALPROEX DR 500MG TAB PO SCH ×2 (11:06→20:18)
[2018-12-18] MEDS: ASPIRIN EC 81 MG TAB PO SCH (11:06)
[2018-12-18] MEDS: ICOSAPENT ETHYL 1 GM CAP PO SCH ×3 (11:07→21:00)
[2018-12-18] MEDS: ACETAMINOPHEN 500 MG TAB PO PRN ×2 (11:08→19:39)
--- NOTE | 2018-12-18 12:11 | EKG ---
Test Date: 2018-12-18 Test Time: 07:26:59 Supervisor Varnish: RT Daniel MEASUREMENT RESULTS: Intervals: Rate: 107 AK: 208 QRSD: 104 QT: 346 QTc: 461 [place]: P: 39 AK: 208 QRS: 47 T: 222 INTERPRETIVE STATEMENTS: Sinus tachycardia Cannot rule out Inferior infarct, age undetermined Cannot rule out Anterior infarct, age undetermined Abnormal ECG Compared to ECG 12/18/2018 07:26:04 T-wave abnormality no longer present Possible ischemia no longer present Myocardial infarct finding still present Electronically Signed On 12-18-18 12:10:12 CDT by Talon Ariza
--- NOTE | 2018-12-18 12:11 | EKG ---
Test Date: 2018-12-18 Test Time: 07:26:04 Securities Sales Associate: RT Daniel MEASUREMENT RESULTS: Intervals: Rate: 107 IL: 208 QRSD: 110 QT: 344 QTc: 459 [place]: P: 45 IL: 208 QRS: 47 T: 237 INTERPRETIVE STATEMENTS: Sinus tachycardia Cannot rule out Inferior infarct, age undetermined Cannot rule out Anterior infarct, age undetermined T wave abnormality, consider lateral ischemia Abnormal ECG Compared to ECG 12/17/2018 23:25:20 Myocardial infarct finding now present Possible ischemia now present Sinus rhythm no longer present Prolonged QT interval no longer present T-wave abnormality still present Electronically Signed On 12-18-18 12:10:13 CDT by Talon Ariza
--- NOTE | 2018-12-18 12:35 | CON ---
Date of Consultation: 12/18/[address] Villegas's service on 12/17/2018. I saw the patient on 12/18/2018. Reason For Consultation: Atrial fibrillation and hypotension. History Of Present Illness: Ms. Plunkett is a 58-year-old woman who has multiple past medical problems, but mostly severe for primary pulmonary hypertension for which she was taking Adcirca until recently . She also has a history of dyslipidemia, hypothyroidism, end-stage renal disease, hypertension, gas troesophageal reflux disease, anemia, depression, irritable bowel syndrome and has a history of IVC f ilter. She came in with new onset atrial fibrillation, weakness, hypotension, was cardioverted elect rically to sinus rhythm and placed on IV amiodarone therapy. She continues to have intermittent atri al fibrillation despite amiodarone but she is mostly maintaining sinus rhythm. Blood pressure in the 90s. Elevated procalcitonin. There is a possibility that there may be an infection going on as wel l. She denied any chest pain. Denied any syncope. She denied any fever or chills or cough. Allergies: SHE IS ALLERGIC TO CODEINE, MORPHINE, AND NONSTEROIDAL ANTI-INFLAMMATORY AGENT. Review of Systems: Negative. Social History: Negative. Family History: Negative. Medications: Include Crestor, aspirin, Vascepa, Lasix, Depakote, Bystolic, and Synthroid. Physical Examination: Vital Signs: This morning, she is in sinus rhythm. Her blood pressure is 93 systolic. HEENT: Negative. Neck: Supple with no bruit. JVD, lymphadenopathy or thyromegaly. Chest: Reveals some rales both bases. Cardiac: Revealed regular rhythm and rate. No murmurs, gallops, or rubs. Abdomen: Benign. Extremities: Revealed no clubbing, cyanosis. She has 1+ edema. Diagnostic Data: She had a hemoglobin of 8.2, creatinine of 5.36. Her BNP was 96488. Her troponin was negative. Her Procalcitonin was 1.93. Echocardiography in May showed normal ejection fract ion with decreased left ventricular compliance and pulmonary hypertension. Carotid Doppler in er were negative. Impression And Plan: 1.New onset atrial fibrillation status post cardioversion, in sinus rhythm on amiodarone. She is on heparin as well. We will have to consider long-term anticoagulation down the road, preferably Eliqu is known her renal dysfunction. I will discuss the case further with Dr. Villegas. No reason to repeat an echocardiogram at this point. 2.Mild congestive heart failure and cardiomegaly, possibly acute exacerbation of chronic diastolic c ongestive heart failure. 3.Hypotension, possibly secondary to atrial fibrillation, although that may be septic component as w ell with elevated procalcitonin. 4.Her other problems include irritable bowel syndrome, depression, hypothyroidism, lymphedema, these are stable. She has gastroesophageal reflux disease and dyslipidemia, both of those are well contro lled. She has a history of end-stage renal disease, has been on peritoneal dialysis and hemodialysis as well. One of her biggest problem is pulmonary arterial hypertension. 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 We will have to readdress that. Pulmonary consu ltation may be adequate. I will continue to follow her with Dr. Villegas. NORMA/HAYLIE Voice ID: [id number] Report ID: [id number]
[2018-12-18] MEDS: HEPARIN/D5W 25,000 UNIT/500 ML BAG IV SCH (14:21)
[2018-12-18] MEDS: MIDODRINE HCL 5 MG TABLET PO ONE ×2 (16:04→16:30)
[2018-12-18] MEDS: MIDODRINE HCL 5 MG TABLET PO PRN ×2 (16:04→19:36)
[2018-12-18] MEDS ORDERED: MIDODRINE HCL 5 MG TABLET PO ONE (16:30)
--- NOTE | 2018-12-18 18:53 | P.CNS ---
Date of Consult: 12/18/18 Reason for Consult: ESRD and fluid management Chief Complaint: WEAK, LOW BP, CLAMMY History of Present Illness: A 58-year-old female, with past medical history of ESRd on home HD TTsat via lt IJ catheter , hypertension; hypothyroidism; hyperlipidemia; pulmonary hypertension; obstructive sleep apnea and bipolar disorder bipolar pt presented to ER with wekaness and low BP pt was recently admitted fo sepsis , required salvage determiner course of Merrem yesterday Bp was low during dialysis, event without fluid removal found to have Afib with RVR S/p cardioversion have SOB, on BiPAP, denied chest pain,headache, nausea or vomiting Allergies codeine [Codeine] Allergy (Mild, Verified 09/03/18 03:33) Itching morphine Adverse Reaction (Severe, Verified 09/03/18 03:33) Decreased blood pressure NSAIDS (Non-Steroidal Anti-Inflamma Adverse Reaction (Intermediate, Verified 10/19 03:33) kidney insufficiency Tape Allergy (Uncoded 07/05/18 10:37) Unknown Home Medications: Allopurinol [Zyloprim*] 100 mg PO BEDTIME 09/03/18 Ascorbic Acid [Vitamin C] 500 mg PO DAILY 09/03/18 Aspirin [Aspir-Low] 81 mg PO DAILY 09/03/18 Calcium Carbonate [Calcium] 1 tab PO DAILY 09/03/18 Cholecalciferol (Vitamin D3) [Vitamin D3] 2,000 unit PO DAILY 09/03/18 Cyclosporine [Restasis] 1 drop EACH EYE BID 09/03/18 Divalproex Sodium [Depakote] 1,000 mg PO BEDTIME 09/03/18 Divalproex Sodium [Depakote] 500 mg PO DAILY 09/03/18 Esomeprazole Mag Trihydrate [Nexium] 40 mg PO DAILY 09/03/18 Icosapent Ethyl [Vascepa] 2 cap PO BID 09/03/18 Ipratropium [Atrovent 0.03% (21MCG)/[place] Nasal*] 2 sprays NS AC 09/03/18 Levothyroxine Sodium 100 mcg PO DAILY 09/03/18 Loratadine [Claritin*] 10 mg PO BEDTIME 09/03/18 Multivitamin [Multivitamins] 1 each PO BEDTIME 09/03/18 Olopatadine HCl [Patanase] 2 spray NS BID 09/03/18 Rosuvastatin Calcium [Crestor] 40 mg PO BEDTIME 09/03/18 Tolterodine Tartrate [Detrol LA*] 4 mg PO BEDTIME 09/03/18 Tramadol HCl [Ultram] 50 mg PO PRN PRN 09/03/18 Eszopiclone [Lunesta] 3 mg PO BEDTIME 12/17/18 Furosemide [Lasix*] 20 mg PO PRN PRN 12/17/18 Methocarbamol [Robaxin] 750 mg PO PRN PRN 12/17/18 Midodrine HCl [Proamatine*] 5 mg PO PRN PRN 12/17/18 Nebivolol HCl [Bystolic*] 5 mg PO DAILY 12/17/18 Nexiabiotic 1 cap PO DAILY 12/17/18 Sinupro 2 cap PO DAILY 12/17/18 - Past Medical/Surgical History Diabetic: No -: sleep apnea -: IBS/GERD -: Hypothyroidism -: ANEMIA -: Pulmonary HTN -: back pain/ pinch nerves -: CKD, seasonal allergies -: HTN -: DVT -: hypertriglyceridemia -: hyperlipidemia -: lymphedema -: Hysterectomy -: Hernia repair -: Knee SX -: colon resection -: back Sx, Sciatica -: cyst removed from forehead x2 -: breast biopsy x2 -: fistula PAULINA - Family History Mother Medical History: Hypertension, Blood disorders - Social History Smoking Status: Unknown if ever smoked Alcohol use: No CD- Drugs: No Caffeine use: Yes Physical Examination Temp Pulse Resp BP Pulse Ox 97.8 F 68 21 H 92/61 97 12/18/18 16:00 12/18/18 17:00 12/18/18 17:00 12/18/18 17:00 12/18/18 17:00 General: Oriented x3, Mild distress HEENT: Atraumatic Neck: Supple, Without JVD or thyroid abnormality Respiratory: Diminished Cardiovascular: No edema, Regular rate/rhythm, Normal S1 S2, No gallops, No rubs Gastrointestinal: Normal bowel sounds, Soft and benign Integumentary: No rashes Urinary: Dialysis catheter Laboratory Data (last 24 hrs) 12/17/18 15:36: PT Cancelled, INR Cancelled - Problems (1) Septic shock Current Visit: Yes Status: Acute (2) ESRD (end stage renal disease) on dialysis Current Visit: No Status: Chronic Conclusions/Impression: ESRD on HD TTsat at home UF today and HD tomorrow renal diet renal dose meds Shock possible septic F/u culture results Cont Abx will obtain cultures from dialysis catheter SHANNA on BiPAP Afib with RVR S/P cardioverison ion Amiodarone anemia will start NOVA
[2018-12-18] MEDS: ESZOPICLONE 1 MG TAB PO SCH (20:17)
[2018-12-18] MEDS: ROSUVASTATIN 10 MG TAB PO SCH ×2 (20:17→21:00)
[2018-12-18] MEDS: LORATADINE 10 MG TAB PO SCH ×2 (20:17→21:00)
[2018-12-18] MEDS: ALLOPURINOL 100 MG TAB PO SCH ×2 (20:17→21:00)
[2018-12-18] MEDS: Meropenem 500 MG in NA CHLORIDE 0.9% 100 ML IV SCH (20:18)
[2018-12-18] MEDS ORDERED: ENOXAPARIN 100 MG/ML SYR SQ SCH (21:17)
--- NOTE | 2018-12-18 21:18 | P.PN ---
Subjective Date of Service: 12/18/18 Chief Complaint: FEELS SOME BETTER. Subjective: Improving LAST NIGHT SHE HAD HYPOTENSION, ER CAME AND CARDIOVERTED HER. SHE IS ON IV ABX. DID NOT TOLERATE AMIODARONE. DR MENDOZA ON THE CASE. SHE DOES NOT HAVE CHEST PAIN, ABDOMEN PAIN, NAUSEA AND VOMITING. Review of Systems 10-point ROS is otherwise unremarkable General: Weakness, Malaise Physical Examination - Vital Signs Temperature: 97.8 F Blood Pressure: 90/55 Pulse: 69 Respirations: 19 Pulse Ox (%): 97 - Physical Exam General: Alert, Moderate distress, Obese HEENT: Atraumatic, PERRLA, EOMI Neck: Supple, JVD not distended Respiratory: Diminished Cardiovascular: Irregular heart rate/rhythm Gastrointestinal: Normal bowel sounds, No tenderness Musculoskeletal: No tenderness Integumentary: No rashes Neurological: Normal speech, Normal tone, Normal affect Lymphatics: No axilla or inguinal lymphadenopathy - Studies Medications List Reviewed: Yes Assessment And Plan - Current Problems (Diagnosis) (1) Septic shock Current Visit: Yes Status: Acute Plan: SHE IS SEPTIC AGAIN. I HAD TALKED TO DR. WINTERS ABOUT THE CATHETER FOR HD. IF THIS COULD BE SOURCE OF INFECTION. IN [place] THIS WAS RULED OUT. SHE WAS TREATED FOR UROSEPSIS IN [place]. SEE HPI FOR DETAILS. I SUSPECT THE CATHTER NEEDS TO COME OUT IT IS FOREIGN BODY AND SHE IS GETTING SEPTIC AGAIN. I CALLED DR. WINTERS. I SUSPECT THE CATHETER TO BE SOURCE OF INFECTION AGAIN. I CALLED DR. BURROWS AND EXPRESSED CONCERN ABOUT THE DIALYSIS CATHETER. SUPERFICIALLY IT IT PALPABLE AND NOT TENDER. PROCALCITONIN IS HIGH. RESUME VANCOMYCIN AND MERREM. (2) ESRD (end stage renal disease) on dialysis Current Visit: No Status: Chronic Plan: ON HD CONTINUE. (3) Pickwickian syndrome Current Visit: No Status: Chronic Plan: ABG CHECK LEAVE OXYGEN TO LEAST POSSIBLE. (4) Pulmonary HTN Onset Date: 11/23/17 Current Visit: No Status: Chronic Plan: NO CHANGES. SHE HAS HAD THIS FOR LONG DURATION. (5) Dyspnea Current Visit: No Status: Acute Plan: SHE HAS SEVERE PULMONARY HTN. NO CHF ON X RAY. INTERSTITIAL CHANGES IN ADDITION TO HYPOTENSION MAY SUGGEST ARDS OR BEGINING OF IT. CONSULT DR. VILLARREAL FOR CRITICAL CARE. SHE IS NOT DNR. SHE LAST ADMISSION CHANGED HER DECISION. PROGNOSIS IS POOR. Qualifiers: Dyspnea type: acute respiratory distress Qualified Code(s): R06.03 - Acute respiratory distress
[2018-12-19] MEDS: ACETAMINOPHEN 500 MG TAB PO PRN (01:12)
[2018-12-19] MEDS: HEPARIN/D5W 25,000 UNIT/500 ML BAG IV SCH (05:49)
[2018-12-19] MEDS: LEVOTHYROXINE SOD 0.1 MG TAB PO SCH (05:50)
[2018-12-19] MEDS: PANTOPRAZOLE 40MG TABLET PO SCH (05:50)
[2018-12-19 05:57] LABS: BUN Blood Urea Nitrogen 68 mg/dL (7-18); Bicarbonate 24 mmol/L (21-32); Ferritin 1894.1 ng/mL (8-388); Folic Acid, (Folate) > 20.0 ng/mL (3.1-17.5); Glucose Level 113 mg/dL (74-106); Sodium Level 135 mmol/L (136-145); Transferrin 176 mg/dL (200-360)
[2018-12-19 06:04] LABS: Phosphorus 9.1 mg/dL (2.5-4.9)
[2018-12-19] MEDS: IPRATROPIUM NS SCH ×3 (07:30→16:07)
--- NOTE | 2018-12-19 07:57 | PN ---
Ms. Plunkett has been in sinus rhythm for all but about 15 minutes over the last 24 hours. I will recom mend that we continue the intravenous amiodarone load. Other antiarrhythmic drugs are either contrai ndicated or unlikely to work. So, I will go with amiodarone. Tomorrow the 20 of December we will swit ch to oral amiodarone. I would like to get her off heparin and start her on Eliquis 2.5 mg b.i.d. to see if she can tolerate that instead of heparin. HEATHER/MODL Voice ID: [id number] Report ID: [id number]
[2018-12-19] MEDS: [UNRECOGNIZED DRUG - OTHER] PO SCH (09:00)
[2018-12-19] MEDS: ICOSAPENT ETHYL 1 GM CAP PO SCH ×2 (09:00→20:37)
[2018-12-19] MEDS: APIXABAN 2.5 MG TABLET PO SCH ×2 (09:36→20:54)
[2018-12-19] MEDS: ASPIRIN EC 81 MG TAB PO SCH (09:37)
[2018-12-19] MEDS: OLOPATADINE HCL NS SCH ×2 (09:37→20:49)
[2018-12-19] MEDS: CYCLOSPORINE EACH EYE SCH ×2 (09:38→21:00)
[2018-12-19] MEDS: DIVALPROEX DR 500MG TAB PO SCH ×2 (09:38→20:34)
[2018-12-19] MEDS ORDERED: VANCOMYCIN 1 GM in NA CHLORIDE 0.9% 500 ML IVPB SCH (11:00)
--- NOTE | 2018-12-19 12:07 | PN ---
Date of Progress Note: 12/19/2018 Subjective: The patient was admitted with cardiogenic shock, atrial fibrillation with RVR, hypertens ion over volume. The patient recently admitted to the hospital with septic shock. At that time, it was secondary to UTI, secondary to Escherichia coli and treated with meropenem, recover. The patient received dialysis yesterday, had 1700 ultrafiltration. Physical Examination: Vital Signs: Blood pressure 128/61, pulse of 71. Chest: Crackles on the right base. Decreased entry on the left base. Heart: S1 and S2,regular. Systolic murmur. Abdomen: Soft and nontender. Extremities: Trace edema. Laboratory Data: WBC 11, H and H 8.2/26.7, platelet 183. Sodium 135, potassium 5, bicarb 24, BUN 68 , creatinine 6.2, calcium of 9, phosphorus 9.1, T-sat of 13, ferritin 1300. BNP 27,000. Procalciton in 1.9. Current Medications: The patient on its include: 1.Aspirin. 2.Meropenem. 3.Vancomycin. 4.Loratadine. 5.Midodrine. 6.Epogen. 7.Amiodarone. 8.Atorvastatin. 9.Pantoprazole. 10.Allopurinol. 11.Levothyroxine. 12.Eyedrops. Assessment And Plan: 1.End-stage renal disease, slightly on the over volume side. I going to go ahead and do sequential dialysis today to establish better volume control and we will monitor the patient. 2.Hypertension, currently hypotension. We will continue to use midodrine. 3.Atrial fibrillation with rapid ventricular response. Continue follow up with Cardiology. Continu e amiodarone. 4.Shock, mostly secondary to cardiogenic given the history and placement of catheter. I am going to go ahead and agree with the elevation of the procalcitonin. I going to be agreeing on the current a ntibiotic treatment. We will follow up culture. We will repeat culture with dialysis today. 5.Pulmonary hypertension. Follow up with Pulmonary. Continue BiPAP. 6.Respiratory failure secondary to over volume as above. MA/MODL Voice ID: [id number] Report ID: [id number]
[2018-12-19] MEDS ORDERED: PROPOFOL 1,000 MG/100 ML VIAL IV PRN (12:38)
[2018-12-19] MEDS ORDERED: RSI MEDICATION KIT IV ONE (12:40)
[2018-12-19] MEDS ORDERED: PROPOFOL 1,000 MG/100 ML VIAL IV ONE (12:42)
--- NOTE | 2018-12-19 12:46 | P.CNS ---
Date of Consult: 12/19/18 Chief Complaint: Respiratory failure History of Present Illness: Patient is 58 years of age admitted with respiratory distress post dialysis this afternoon own at condition had deteriorated became more unresponsive hypoxic after discussing with her we decided to intubate her she presented with fatigue and general weakness Allergies codeine [Codeine] Allergy (Mild, Verified 09/03/18 03:33) Itching morphine Adverse Reaction (Severe, Verified 09/03/18 03:33) Decreased blood pressure NSAIDS (Non-Steroidal Anti-Inflamma Adverse Reaction (Intermediate, Verified 10/19 03:33) kidney insufficiency Tape Allergy (Uncoded 07/05/18 10:37) Unknown Home Medications: Allopurinol [Zyloprim*] 100 mg PO BEDTIME 09/03/18 Ascorbic Acid [Vitamin C] 500 mg PO DAILY 09/03/18 Aspirin [Aspir-Low] 81 mg PO DAILY 09/03/18 Calcium Carbonate [Calcium] 1 tab PO DAILY 09/03/18 Cholecalciferol (Vitamin D3) [Vitamin D3] 2,000 unit PO DAILY 09/03/18 Cyclosporine [Restasis] 1 drop EACH EYE BID 09/03/18 Divalproex Sodium [Depakote] 1,000 mg PO BEDTIME 09/03/18 Divalproex Sodium [Depakote] 500 mg PO DAILY 09/03/18 Esomeprazole Mag Trihydrate [Nexium] 40 mg PO DAILY 09/03/18 Icosapent Ethyl [Vascepa] 2 cap PO BID 09/03/18 Ipratropium [Atrovent 0.03% (21MCG)/[place] Nasal*] 2 sprays NS AC 09/03/18 Levothyroxine Sodium 100 mcg PO DAILY 09/03/18 Loratadine [Claritin*] 10 mg PO BEDTIME 09/03/18 Multivitamin [Multivitamins] 1 each PO BEDTIME 09/03/18 Olopatadine HCl [Patanase] 2 spray NS BID 09/03/18 Rosuvastatin Calcium [Crestor] 40 mg PO BEDTIME 09/03/18 Tolterodine Tartrate [Detrol LA*] 4 mg PO BEDTIME 09/03/18 Tramadol HCl [Ultram] 50 mg PO PRN PRN 09/03/18 Eszopiclone [Lunesta] 3 mg PO BEDTIME 12/17/18 Furosemide [Lasix*] 20 mg PO PRN PRN 12/17/18 Methocarbamol [Robaxin] 750 mg PO PRN PRN 12/17/18 Midodrine HCl [Proamatine*] 5 mg PO PRN PRN 12/17/18 Nebivolol HCl [Bystolic*] 5 mg PO DAILY 12/17/18 Nexiabiotic 1 cap PO DAILY 12/17/18 Sinupro 2 cap PO DAILY 12/17/18 - Past Medical/Surgical History Diabetic: No -: sleep apnea -: IBS/GERD -: Hypothyroidism -: ANEMIA -: Pulmonary HTN -: back pain/ pinch nerves -: CKD, seasonal allergies -: HTN -: DVT -: hypertriglyceridemia -: hyperlipidemia -: lymphedema -: Hysterectomy -: Hernia repair -: Knee SX -: colon resection -: back Sx, Sciatica -: cyst removed from forehead x2 -: breast biopsy x2 -: fistula PAULINA - Family History Mother Medical History: Hypertension, Blood disorders - Social History Smoking Status: Unknown if ever smoked Alcohol use: No CD- Drugs: No Caffeine use: Yes Review of Systems is unable to be obtained Physical Examination Temp Pulse Resp BP Pulse Ox 96.7 F L 77 22 H 122/77 97 12/19/18 08:00 12/19/18 11:00 12/19/18 11:00 12/19/18 11:00 12/19/18 11:00 General: Unresponsive Respiratory: Clear to auscultation bilaterally, Diminished Cardiovascular: Edema (3+ edema) Gastrointestinal: Normal bowel sounds, Soft and benign - Problems (1) Respiratory failure Current Visit: Yes Status: Acute Plan: Patient admitted with acute on chronic respiratory failure patient was intubated as per 's request blood gases pending patient has renal failure scheduled to have dialysis today overall prognosis is very poor recurrent hospital admissions pulmonary hypertension chronic respiratory failure cultures are pending continue with supportive treatment patient is already anti coagulated Qualifiers: Chronicity: acute on chronic Respiratory failure complication: hypoxia and hypercapnia Qualified Code(s): J96.21 - Acute and chronic respiratory failure with hypoxia; J96.22 - Acute and chronic respiratory failure with hypercapnia
[2018-12-19] MEDS: FENTANYL CITR 100 MCG/2 ML IV PRN (12:57)
[2018-12-19] MEDS ORDERED: NA CHLORIDE 0.9% 500 ML IV ONE (13:10)
[2018-12-19] MEDS: LORazepam 2 MG/ML VIAL IV PRN (13:16)
[2018-12-19] MEDS ORDERED: NA CHLORIDE 0.9% 500 ML ONE (13:19)
--- NOTE | 2018-12-19 13:25 | RAD REPORT ---
EXAM DESCRIPTION: RAD - Chest Single View - 12/19/2018 1:17 pm CLINICAL HISTORY: Intubated Chest pain. COMPARISON: Chest Single View dated 12/18/2018; Chest Single View dated 12/17/2018; Chest Single View dated 12/05/2018; Chest Single View dated 11/16/2018 FINDINGS: Portable technique limits examination quality. Enteric tube is in the stomach. ET tube is above the shirin.
[2018-12-19] MEDS: HALOPERIDOL LACT 5 MG/ML INJ IV PRN ×2 (14:00→23:39)
[2018-12-19] MEDS ORDERED: HYDROCORTISONE SUC 100 MG INJ IV ONE (14:23)
[2018-12-19] MEDS: NOREPINEPHRINE 4 MG in D5W 250 ML IV PRN ×2 (14:32→23:38)
[2018-12-19] MEDS ORDERED: WATER FOR INJ,STERILE 10 ML IV SCH (15:00)
[2018-12-19] MEDS ORDERED: PROPOFOL 200 MG/20 ML VIAL IV PRN (15:32)
[2018-12-19 17:36] LABS: Arterial Blood Carboxyhemoglob 1.5 % (0-1.5); Blood Gas Oxyhemoglobin 95.8 % (94-97); Blood O2 Saturation 97.9 % (92-98.5)
[2018-12-19] MEDS: ROSUVASTATIN 10 MG TAB PO SCH (20:34)
[2018-12-19] MEDS: ESZOPICLONE 1 MG TAB PO SCH (20:35)
[2018-12-19] MEDS: LORATADINE 10 MG TAB PO SCH (20:48)
[2018-12-19] MEDS: Meropenem 500 MG in NA CHLORIDE 0.9% 100 ML IV SCH (20:54)
[2018-12-19] MEDS: ALLOPURINOL 100 MG TAB PO SCH (20:54)
--- NOTE | 2018-12-19 21:15 | P.PN ---
Subjective Date of Service: 12/19/18 Chief Complaint: Respiratory failure Subjective: Worsening LAST NIGHT SHE HAD HYPOTENSION, ER CAME AND CARDIOVERTED HER. SHE IS ON IV ABX. DID NOT TOLERATE AMIODARONE. DR MENDOZA ON THE CASE. SHE DOES NOT HAVE CHEST PAIN, ABDOMEN PAIN, NAUSEA AND VOMITING. PATIENT HAS NOT DONE WELL. SHE LOOKED BETTER THIS AM BUT LATER GOT WORSE WITH DYSPNEA. THEY CALLED ME. I ORDERED ABG AND ASKED TO CALL DR. KO HE HAS BEEN HER DOCTOR BEFORE. DR. KO INTUABTED HER FOR RESPIRATORY FAILURE. Review of Systems 10-point ROS is otherwise unremarkable General: Weakness, Malaise Physical Examination - Vital Signs Temperature: 97.8 F Blood Pressure: 127/73 Pulse: 51 Respirations: 16 Pulse Ox (%): 100 - Physical Exam General: Alert, Acute distress, Obese HEENT: Atraumatic, PERRLA, EOMI Neck: Supple, JVD not distended Respiratory: Diminished Cardiovascular: Regular rate/rhythm, Normal S1 S2 Gastrointestinal: Normal bowel sounds, No tenderness Musculoskeletal: No tenderness Integumentary: No rashes Neurological: Normal speech, Normal tone, Normal affect Lymphatics: No axilla or inguinal lymphadenopathy - Studies Medications List Reviewed: Yes Assessment And Plan - Current Problems (Diagnosis) (1) Septic shock Current Visit: Yes Status: Acute Plan: SHE IS SEPTIC AGAIN. I HAD TALKED TO DR. WINTERS ABOUT THE CATHETER FOR HD. IF THIS COULD BE SOURCE OF INFECTION. IN [place] THIS WAS RULED OUT. SHE WAS TREATED FOR UROSEPSIS IN [place]. SEE HPI FOR DETAILS. I SUSPECT THE CATHTER NEEDS TO COME OUT IT IS FOREIGN BODY AND SHE IS GETTING SEPTIC AGAIN. I CALLED DR. WINTERS. I SUSPECT THE CATHETER TO BE SOURCE OF INFECTION AGAIN. I CALLED DR. BURROWS AND EXPRESSED CONCERN ABOUT THE DIALYSIS CATHETER. SUPERFICIALLY IT IT PALPABLE AND NOT TENDER. PROCALCITONIN IS HIGH. RESUME VANCOMYCIN AND MERREM. CAN'T RULE OUT ASHLYN -INVASIVE. ADD DIFLUCAN 800 MG DAILY SHE IS CRITICAL AND IT WILL TAKE WEEKS TO GROW ASHLYN. (2) ESRD (end stage renal disease) on dialysis Current Visit: No Status: Chronic Plan: ON HD CONTINUE. (3) Pickwickian syndrome Current Visit: No Status: Chronic Plan: ABG CHECK LEAVE OXYGEN TO LEAST POSSIBLE. (4) Pulmonary HTN Onset Date: 11/23/17 Current Visit: No Status: Chronic Plan: NO CHANGES. SHE HAS HAD THIS FOR LONG DURATION. (5) Dyspnea Current Visit: No Status: Acute Plan: SHE HAS SEVERE PULMONARY HTN. NO CHF ON X RAY. INTERSTITIAL CHANGES IN ADDITION TO HYPOTENSION MAY SUGGEST ARDS OR BEGINING OF IT. CONSULT DR. VILLARREAL FOR CRITICAL CARE. SHE IS NOT DNR. SHE LAST ADMISSION CHANGED HER DECISION. PROGNOSIS IS POOR. Qualifiers: Dyspnea type: acute respiratory distress Qualified Code(s): R06.03 - Acute respiratory distress
[2018-12-19] MEDS: FLUCONAZOLE 400 MG IVPB 400 MG/200 ML BAG IV SCH (21:30)
[2018-12-19 21:31] LABS: Arterial Blood Carboxyhemoglob 1.5 % (0-1.5); Blood Gas Oxyhemoglobin 95.6 % (94-97); Blood O2 Saturation 97.7 % (92-98.5)
[2018-12-19] MEDS ORDERED: FLUCONAZOLE 200mg IVPB 400 MG/200 ML BAG IV ONE (23:50)
[2018-12-20] MEDS ORDERED: NA CHLORIDE 0.9% 250 ML ONE (01:35)
[2018-12-20] MEDS ORDERED: VANCOMYCIN 1 GM/VIAL ONE (01:35)
[2018-12-20] MEDS: FENTANYL CITR 100 MCG/2 ML IV PRN (04:22)
[2018-12-20 05:58] LABS: Arterial Blood Carboxyhemoglob 1.5 % (0-1.5); Blood Gas Oxyhemoglobin 96.2 % (94-97); Blood O2 Saturation 97.8 % (92-98.5)
[2018-12-20 06:02] LABS: Absolute Lymphocytes (CBC) 0.9 K/uL (0.7-4.9); Basophils % 0.3 % (0-1.3); Eosinophils % 0.3 % (0-4.4); Hematocrit 22.8 % (36.0-45.0); Lymphocytes % 14.4 % (15.3-44.8); MPV 6.9 fL (7.6-11.3); Monocytes % 13.5 % (3.3-12.3); RBC Red Blood Cell Count 2.39 M/uL (3.86-4.86)
[2018-12-20 06:21] LABS: Albumin 1.8 g/dL (3.4-5.0); Bilirubin Total 0.3 mg/dL (0.2-1.0); Potassium 4.6 mmol/L (3.5-5.1); Protein, Total 5.5 g/dL (6.4-8.2)
[2018-12-20] MEDS: IPRATROPIUM NS SCH ×3 (07:30→16:04)
[2018-12-20] MEDS: [UNRECOGNIZED DRUG - OTHER] PO SCH (07:37)
[2018-12-20] MEDS: OLOPATADINE HCL NS SCH ×2 (07:37→19:57)
[2018-12-20] MEDS: ICOSAPENT ETHYL 1 GM CAP PO SCH ×2 (07:37→19:57)
--- NOTE | 2018-12-20 08:50 | P.PN ---
Subjective Date of Service: 12/20/18 Chief Complaint: Respiratory failure Subjective: Improving (Patient is doing much better she is more alert responsive cooperative on wants to be extubated hemodynamically stable unable to rule dialysis yesterday she is currently in the process of undergoing dialysis) Review of Systems is unable to be obtained Physical Examination - Vital Signs Temperature: 97.2 F Blood Pressure: 105/66 Pulse: 66 Respirations: 16 Pulse Ox (%): 100 - Physical Exam General: Alert, Cooperative Neck: Supple Respiratory: Clear to auscultation bilaterally, Diminished Cardiovascular: Edema (Minimal edema) - Studies Medications List Reviewed: Yes Assessment & Plan - Problems (Diagnosis) (1) Respiratory failure Current Visit: Yes Status: Acute Plan: Patient developed respiratory failure yesterday was intubated she is doing much better very alert responsive cooperative wants to be extubated hemodynamically stable off vasopressors I am not sure what happened today she is currently undergoing dialysis there is no evidence of sepsis all antibiotics can be discontinued cultures are negative labs reviewed chest x-ray reviewed minimal effusion on the left side is been a decline in her hemoglobin suggest repeat before transfusion Qualifiers: Chronicity: acute on chronic Respiratory failure complication: hypoxia and hypercapnia Qualified Code(s): J96.21 - Acute and chronic respiratory failure with hypoxia; J96.22 - Acute and chronic respiratory failure with hypercapnia
--- NOTE | 2018-12-20 08:51 | P.OP ---
Date of Service: 12/19/18 Findings and Operative Technique Procedure profound emergency endotracheal intubation After obtaining informed consent from the patient's patient was given 50 mg of propofol and was intubated using any introducer. Added difficult intubation due to anterior vocal cords focal cords were visualized and the tracheal tube position confirmed with chest x-ray
[2018-12-20] MEDS: ASPIRIN EC 81 MG TAB PO SCH (09:00)
[2018-12-20] MEDS: DIVALPROEX DR 500MG TAB PO SCH ×2 (09:00→19:56)
[2018-12-20] MEDS: APIXABAN 2.5 MG TABLET PO SCH (09:00)
[2018-12-20 09:21] LABS: Anisocytosis 2+; Blood Morphology Comment NOTED (NOT SEEN); Platelet Estimate ADEQ; Urine White Blood Cell Casts OK
[2018-12-20] MEDS: LORazepam 2 MG/ML VIAL IV PRN (09:30)
[2018-12-20] MEDS ORDERED: NA CHLORIDE 0.9% 1,000 ML IV PRN (09:39)
--- NOTE | 2018-12-20 11:52 | P.PN ---
Subjective Date of Service: 12/20/18 Chief Complaint: Respiratory failure pt with ESRD and SHANNA on nasal BiPAP at home , admitted for hypotension, devloped acute resp failure and was intubated Today no overnight events cont on levophed tolerating HD will do another dialysis tomorrow Hb dropped to 7.3, will transfuse 2 PRBC with HD tomorrow cultures so far -ve Physical Examination - Vital Signs Temperature: 97.2 F Blood Pressure: 105/66 Pulse: 66 Respirations: 16 Pulse Ox (%): 100 - Physical Exam General: Alert, Mild distress HEENT: Atraumatic Neck: Supple, Without JVD or thyroid abnormality Respiratory: Diminished Cardiovascular: No edema, Regular rate/rhythm, Normal S1 S2, No gallops, No rubs , No murmurs Gastrointestinal: Soft and benign Musculoskeletal: No swelling Integumentary: No rashes - Studies Medications List Reviewed: Yes Assessment And Plan - Current Problems (Diagnosis) (1) Septic shock Current Visit: Yes Status: Acute (2) ESRD (end stage renal disease) on dialysis Current Visit: No Status: Chronic - Plan ESRD on HD TTsat at home will do dialysis gain tomorrow renal diet renal dose meds Shock possible septic F/u culture results , so far -ve Cont Abx Acute resp failure Hx of SHANNA on nasal BiPAP at home possible extubation today Afib with RVR S/P cardioverison on Amiodarone started on Eliquis anemia on NOVA plan for 2 PRBC stool for guaiac MBD high Phos will restart renvela once extubated
[2018-12-20] MEDS: EPOETIN ALFA 10,000 UNIT/ML VIAL SQ SCH (11:54)
[2018-12-20] MEDS: CYCLOSPORINE EACH EYE SCH ×2 (12:21→19:56)
[2018-12-20] MEDS: FAMOTIDINE 20 MG/2 ML VIAL IV SCH (12:22)
[2018-12-20] MEDS: LEVOTHYROXINE SOD 0.1 MG TAB PO SCH (12:24)
--- NOTE | 2018-12-20 13:07 | PN ---
Date of Progress Note: 12/20/2018 Subjective: We have been following Ms. Plunkett for atrial fibrillation on IV amiodarone. She has been in sinus rhythm most of the time. We have decided to discontinue heparin, start p.o. Eliquis, start p.o. amiodarone 400 b.i.d. for a week and then 200 mg daily. We will continue to follow. NORMA/HAYLIE Voice ID: [id number] Report ID: [id number]
[2018-12-20] MEDS: ESZOPICLONE 1 MG TAB PO SCH (19:54)
[2018-12-20] MEDS: LORATADINE 10 MG TAB PO SCH (19:54)
[2018-12-20] MEDS: ROSUVASTATIN 10 MG TAB PO SCH (19:55)
[2018-12-20] MEDS: ALLOPURINOL 100 MG TAB PO SCH (19:56)
[2018-12-20] MEDS: Meropenem 500 MG in NA CHLORIDE 0.9% 100 ML IV SCH (19:57)
[2018-12-20] MEDS: FLUCONAZOLE 400 MG IVPB 400 MG/200 ML BAG IV SCH (21:00)
--- NOTE | 2018-12-20 21:37 | P.PN ---
Subjective Date of Service: 12/20/18 Chief Complaint: Respiratory failure Subjective: Worsening LAST NIGHT SHE HAD HYPOTENSION, ER CAME AND CARDIOVERTED HER. SHE IS ON IV ABX. DID NOT TOLERATE AMIODARONE. DR MENDOZA ON THE CASE. SHE DOES NOT HAVE CHEST PAIN, ABDOMEN PAIN, NAUSEA AND VOMITING. PATIENT HAS NOT DONE WELL. SHE LOOKED BETTER THIS AM BUT LATER GOT WORSE WITH DYSPNEA. THEY CALLED ME. I ORDERED ABG AND ASKED TO CALL DR. KO HE HAS BEEN HER DOCTOR BEFORE. DR. KO INTUABTED HER FOR RESPIRATORY FAILURE. SHE IS NOT GETTING BETTER. SHE IS STILL FULL CODE. SHE NOW IS INTUBATED, ON IV ABX AND LEVOPHED IV. Review of Systems is unable to be obtained Physical Examination - Vital Signs Temperature: 97.5 F Blood Pressure: 117/57 Pulse: 87 Respirations: 18 Pulse Ox (%): 99 - Physical Exam General: Alert, Moderate distress, Obese, Other (ON THE VENT.) HEENT: Atraumatic, PERRLA, EOMI Neck: Supple, JVD not distended Respiratory: Diminished Cardiovascular: Regular rate/rhythm, Normal S1 S2 Gastrointestinal: Normal bowel sounds, No tenderness Musculoskeletal: No tenderness Integumentary: No rashes Neurological: Normal speech, Normal tone, Normal affect Lymphatics: No axilla or inguinal lymphadenopathy - Studies Medications List Reviewed: Yes Assessment And Plan - Current Problems (Diagnosis) (1) Septic shock Current Visit: Yes Status: Acute Plan: SHE IS SEPTIC AGAIN. I HAD TALKED TO DR. WINTERS ABOUT THE CATHETER FOR HD. IF THIS COULD BE SOURCE OF INFECTION. IN [place] THIS WAS RULED OUT. SHE WAS TREATED FOR UROSEPSIS IN [place]. SEE HPI FOR DETAILS. I SUSPECT THE CATHTER NEEDS TO COME OUT IT IS FOREIGN BODY AND SHE IS GETTING SEPTIC AGAIN. I CALLED DR. WINTERS. I SUSPECT THE CATHETER TO BE SOURCE OF INFECTION AGAIN. I CALLED DR. BURROWS AND EXPRESSED CONCERN ABOUT THE DIALYSIS CATHETER. SUPERFICIALLY IT IT PALPABLE AND NOT TENDER. PROCALCITONIN IS HIGH. RESUME VANCOMYCIN AND MERREM. CAN'T RULE OUT ASHLYN -INVASIVE. ADD DIFLUCAN 800 MG DAILY SHE IS CRITICAL AND IT WILL TAKE WEEKS TO GROW ASHLYN. [facility] NO CULTURES ARE POSITIVE, HER ADMISSION PICTURE LIKE EXAMINED IN ER SUGGESTS ME THAT SHE IS SEPTIC. SHE WILL NOT HAVE HYPOTENSION, HIGH PROCALCITONIN AND HIGH WHITE COUNT WITHOUT SEPSIS. SHE MAY HAVE CANDIDEMIA THAT TAKES LONG TIME TO GROW IN THE BLOOD. PROGNOSIS IS POOR. IS AWARE. (2) ESRD (end stage renal disease) on dialysis Current Visit: No Status: Chronic Plan: ON HD CONTINUE. (3) Pickwickian syndrome Current Visit: No Status: Chronic Plan: ABG CHECK LEAVE OXYGEN TO LEAST POSSIBLE. (4) Pulmonary HTN Onset Date: 11/23/17 Current Visit: No Status: Chronic Plan: NO CHANGES. SHE HAS HAD THIS FOR LONG DURATION. (5) Dyspnea Current Visit: No Status: Acute Plan: SHE HAS SEVERE PULMONARY HTN. NO CHF ON X RAY. INTERSTITIAL CHANGES IN ADDITION TO HYPOTENSION MAY SUGGEST ARDS OR BEGINING OF IT. CONSULT DR. VILLARREAL FOR CRITICAL CARE. SHE IS NOT DNR. SHE LAST ADMISSION CHANGED HER DECISION. PROGNOSIS IS POOR. Qualifiers: Dyspnea type: acute respiratory distress Qualified Code(s): R06.03 - Acute respiratory distress
[2018-12-20] MEDS: METHOCARBAMOL 750 MG TAB PO PRN (22:38)
[2018-12-21] MEDS: METHOCARBAMOL 750 MG TAB PO PRN (04:57)
[2018-12-21] MEDS: LEVOTHYROXINE SOD 0.1 MG TAB PO SCH (05:54)
[2018-12-21 07:26] LABS: Absolute Lymphocytes (CBC) 1.3 K/uL (0.7-4.9); Basophils % 0.7 % (0-1.3); Eosinophils % 0.5 % (0-4.4); Hematocrit 27.3 % (36.0-45.0); Lymphocytes % 11.1 % (15.3-44.8); MPV 6.3 fL (7.6-11.3); Monocytes % 16.2 % (3.3-12.3); RBC Red Blood Cell Count 2.79 M/uL (3.86-4.86)
[2018-12-21] MEDS: IPRATROPIUM NS SCH ×3 (07:30→15:47)
[2018-12-21 08:30] LABS: Albumin 2.1 g/dL (3.4-5.0); Ferritin 1515.6 ng/mL (8-388); Folic Acid, (Folate) 18.3 ng/mL (3.1-17.5); Potassium 4.9 mmol/L (3.5-5.1)
[2018-12-21] MEDS: OLOPATADINE HCL NS SCH ×2 (08:42→20:24)
[2018-12-21] MEDS: DIVALPROEX DR 500MG TAB PO SCH ×2 (08:42→20:23)
[2018-12-21] MEDS: FAMOTIDINE 20 MG/2 ML VIAL IV SCH (08:42)
[2018-12-21] MEDS: CYCLOSPORINE EACH EYE SCH ×2 (08:42→20:24)
[2018-12-21] MEDS: [UNRECOGNIZED DRUG - OTHER] PO SCH (08:44)
[2018-12-21] MEDS: ICOSAPENT ETHYL 1 GM CAP PO SCH ×3 (08:45→20:45)
[2018-12-21 08:52] LABS: Phosphorus 9.5 mg/dL (2.5-4.9)
[2018-12-21 09:04] LABS: Blood Morphology Comment NOT SEEN (NOT SEEN); Platelet Estimate ADEQ
[2018-12-21 09:50] LABS: Absolute Lymphocytes (CBC) 2.6 K/uL (0.7-4.9); Eosinophils % 0.8 % (0-4.4); Hematocrit 28.2 % (36.0-45.0); Lymphocytes % 15.5 % (15.3-44.8); MPV 6.5 fL (7.6-11.3); Monocytes % 15.7 % (3.3-12.3); RBC Red Blood Cell Count 2.88 M/uL (3.86-4.86)
[2018-12-21] MEDS: EPOETIN ALFA 10,000 UNIT/ML VIAL SQ SCH (09:56)
--- NOTE | 2018-12-21 10:48 | P.PN ---
Subjective Date of Service: 12/21/18 Chief Complaint: Respiratory failure low BP Pt drowsy Physical Examination - Vital Signs Temperature: 98.5 F Blood Pressure: 111/63 Pulse: 85 Respirations: 15 Pulse Ox (%): 80 - Studies Medications List Reviewed: Yes Assessment & Plan - Problems (Diagnosis) (1) Respiratory failure Current Visit: Yes Status: Acute Plan: Patient developed respiratory failure yesterday was intubated she is doing much better very alert responsive cooperative wants to be extubated hemodynamically stable off vasopressors I am not sure what happened today she is currently undergoing dialysis there is no evidence of sepsis all antibiotics can be discontinued cultures are negative labs reviewed chest x-ray reviewed minimal effusion on the left side is been a decline in her hemoglobin suggest repeat before transfusion Qualifiers: Chronicity: acute on chronic Respiratory failure complication: hypoxia and hypercapnia Qualified Code(s): J96.21 - Acute and chronic respiratory failure with hypoxia; J96.22 - Acute and chronic respiratory failure with hypercapnia
[2018-12-21] MEDS: MIDODRINE HCL 5 MG TABLET PO PRN (10:55)
[2018-12-21] MEDS: ALBUMIN HUMAN 25% 50 ML IV SCH (10:59)
[2018-12-21] MEDS: dexAMETHasone 4 MG/ML VIAL IV SCH ×2 (11:10→16:55)
--- NOTE | 2018-12-21 12:09 | P.PN ---
Subjective Date of Service: 12/21/18 Chief Complaint: Respiratory failure low BP pt with ESRD and SHANNA on nasal BiPAP at home , admitted for hypotension, devloped acute resp failure and was intubated Today Pt is extubated Off pressers Hb improved , yesterday was likely dilutonal HD yesterday and today with ~3.5liter removal CXR tomorrow and further HD as per CXR and labs findings Physical Examination - Vital Signs Temperature: 98.5 F Blood Pressure: 99/66 Pulse: 86 Respirations: 18 Pulse Ox (%): 100 - Physical Exam General: Alert, Mild distress HEENT: Atraumatic Neck: Supple, Without JVD or thyroid abnormality Respiratory: Diminished Cardiovascular: No edema, Regular rate/rhythm, Normal S1 S2, No rubs, No murmurs Gastrointestinal: Soft and benign - Studies Medications List Reviewed: Yes Assessment And Plan - Current Problems (Diagnosis) (1) Septic shock Current Visit: Yes Status: Acute (2) ESRD (end stage renal disease) on dialysis Current Visit: No Status: Chronic - Plan ESRD on HD TTsat at home will do dialysis gain tomorrow renal diet renal dose meds Shock possible septic F/u culture results , so far -ve Cont Abx Acute resp failure extubated now Afib with RVR S/P cardioverison on Amiodarone plan to start on Eliquis anemia on NOVA F?u FOBT MBD high Phos unlikely to tolerate renvela due to its size will start on Phoslo
--- NOTE | 2018-12-21 16:34 | PN ---
Date of Progress Note: 12/21/2018 Ms. Plunkett remains in the ICU yesterday. We are hoping to put her on p.o. amiodarone instead of IV am iodarone and stop her heparin, put her on p.o. Eliquis. However, she got reintubated, so we continue d IV amiodarone. Today, she is extubated, unable to take p.o. adequately. Remains in sinus rhythm. I think we need to continued IV amiodarone. Continue anticoagulation. So, subcu heparin or Lovenox should be sufficient at this point. I will discuss the case further with Dr. Villegas as far as her fu ture therapy. No change in therapy at this point. NORMA/HAYLIE Voice ID: [id number] Report ID: [id number]
[2018-12-21] MEDS: CA ACETATE 667 MG CAP PO SCH (16:55)
[2018-12-21] MEDS: APIXABAN 2.5 MG TABLET PO SCH (20:21)
[2018-12-21] MEDS: ROSUVASTATIN 10 MG TAB PO SCH (20:22)
[2018-12-21] MEDS: ALLOPURINOL 100 MG TAB PO SCH (20:22)
[2018-12-21] MEDS: ESZOPICLONE 1 MG TAB PO SCH (20:23)
[2018-12-21] MEDS: LORATADINE 10 MG TAB PO SCH (20:23)
[2018-12-21] MEDS: Meropenem 500 MG in NA CHLORIDE 0.9% 100 ML IV SCH (20:24)
[2018-12-21] MEDS: FLUCONAZOLE 400 MG IVPB 400 MG/200 ML BAG IV SCH (21:09)
[2018-12-22] MEDS: dexAMETHasone 4 MG/ML VIAL IV SCH ×2 (00:43→08:56)
[2018-12-22] MEDS: ACETAMINOPHEN 500 MG TAB PO PRN ×2 (00:47→14:15)
[2018-12-22] MEDS: LEVOTHYROXINE SOD 0.1 MG TAB PO SCH (06:02)
[2018-12-22] MEDS: IPRATROPIUM NS SCH ×3 (07:30→15:13)
[2018-12-22] MEDS: [UNRECOGNIZED DRUG - OTHER] PO SCH (07:42)
--- NOTE | 2018-12-22 08:13 | PN ---
Date of Progress Note: 12/22/2018 Ms. Plunkett remains on BiPAP, having a difficult time weaning off that. She had come in with acute on chronic respiratory failure. She is on dialysis. She was in atrial fibrillation that has resolved o n IV amiodarone. She has occasional breakthrough with atrial fibrillation as she is now on Eliquis a s well. Pulmonary hypertension is another issue. Again, I agree with her present regimen. Continue IV amiodarone although she is able to take p.o. Prognosis remains guarded. Nephrology and Pulmonol luz marina are involved in her care as well. NB/MODL Voice ID: [id number] Report ID: [id number]
--- NOTE | 2018-12-22 08:16 | RAD REPORT ---
EXAM DESCRIPTION: RAD - Chest Single View - 12/22/2018 5:56 am CLINICAL HISTORY: Pleural effusion, shortness of breath COMPARISON: December 19 TECHNIQUE: AP portable chest image was obtained 0518 hours . FINDINGS: Endotracheal tube has been removed since the comparison study. NG tube also has been remov ed. Left-sided dialysis catheter remains in place. Small right pleural effusion is evident. Large cardiac silhouette obscures the medial right lung base and could obscure infiltrate or atelectasis. Small to moderate left pleural effusion with left base infiltrate and/ or atelectasis stable from prior imaging. No pneumothorax. No acute bony abnormality seen. No acute aortic findings suspected. IMPRESSION: Left greater than right pleural effusions with bilateral lung base infiltrate and/or ate lectasis similar to comparison. Endotracheal tube and NG tube have been removed since the comparison study.
[2018-12-22] MEDS: CYCLOSPORINE EACH EYE SCH ×2 (08:55→21:05)
[2018-12-22] MEDS: OLOPATADINE HCL NS SCH ×2 (08:55→21:07)
[2018-12-22] MEDS: DIVALPROEX DR 500MG TAB PO SCH ×2 (08:56→21:07)
[2018-12-22] MEDS: APIXABAN 2.5 MG TABLET PO SCH ×2 (08:56→21:06)
[2018-12-22] MEDS: CA ACETATE 667 MG CAP PO SCH ×3 (08:56→15:14)
[2018-12-22] MEDS: ICOSAPENT ETHYL 1 GM CAP PO SCH ×2 (08:57→21:07)
[2018-12-22] MEDS: FAMOTIDINE 20 MG/2 ML VIAL IV SCH (08:57)
[2018-12-22 10:06] LABS: Absolute Lymphocytes (CBC) 0.5 K/uL (0.7-4.9); Basophils % 0.7 % (0-1.3); Hematocrit 26.7 % (36.0-45.0); Lymphocytes % 6.4 % (15.3-44.8); MPV 6.7 fL (7.6-11.3); Monocytes % 2.4 % (3.3-12.3); RBC Red Blood Cell Count 2.78 M/uL (3.86-4.86)
[2018-12-22 10:40] LABS: Albumin 2.3 g/dL (3.4-5.0); Bilirubin Total 0.3 mg/dL (0.2-1.0); Magnesium 2.4 mg/dL (1.8-2.4); Phosphorus 8.9 mg/dL (2.5-4.9); Potassium 4.9 mmol/L (3.5-5.1); Protein, Total 6.5 g/dL (6.4-8.2)
[2018-12-22 10:41] LABS: Arterial Blood Carboxyhemoglob 1.7 % (0-1.5); Blood Gas Oxyhemoglobin 87.4 % (94-97); Blood O2 Saturation 89.6 % (92-98.5)
[2018-12-22 10:51] LABS: Arterial Blood Carboxyhemoglob 1.8 % (0-1.5); Blood Gas Oxyhemoglobin 90.9 % (94-97)
--- NOTE | 2018-12-22 11:25 | P.PN ---
Subjective Date of Service: 12/22/18 Chief Complaint: Respiratory failure Patient is not doing well assist still complaining of shortness of breath unable to stay off the BiPAP repeated blood gases show significant acidosis patient has baseline hypercapnia no evidence of sepsis Review of Systems General: Weakness Cardiovascular: Orthopnea, Edema Physical Examination - Vital Signs Temperature: 98.9 F Blood Pressure: 125/64 Pulse: 82 Respirations: 16 Pulse Ox (%): 97 - Physical Exam General: Alert, Oriented x3 Respiratory: Clear to auscultation bilaterally, Diminished Cardiovascular: Normal S1 S2, Edema - Studies Medications List Reviewed: Yes Assessment & Plan - Problems (Diagnosis) (1) Respiratory failure Current Visit: Yes Status: Acute Plan: Patient admitted with respiratory failure she still continues to remain on BiPAP patient is acidotic hypercapnic she has baseline hypercapnia that is been compensated by elevated bicarbonate discuss with Nephrology the increase him on a bicarbonate in the dialysis fluid otherwise chest x-ray shows some effusion on the left side no clinical evidence of sepsis antibiotics can be discontinued all blood cultures are negative patient did not respond to a trial of steroids repeat blood gases after dialysis Qualifiers: Chronicity: acute on chronic Respiratory failure complication: hypoxia and hypercapnia Qualified Code(s): J96.21 - Acute and chronic respiratory failure with hypoxia; J96.22 - Acute and chronic respiratory failure with hypercapnia
--- NOTE | 2018-12-22 13:09 | P.PN ---
Subjective Date of Service: 12/22/18 Chief Complaint: Respiratory failure Subjective: Worsening LAST NIGHT SHE HAD HYPOTENSION, ER CAME AND CARDIOVERTED HER. SHE IS ON IV ABX. DID NOT TOLERATE AMIODARONE. DR MENDOZA ON THE CASE. SHE DOES NOT HAVE CHEST PAIN, ABDOMEN PAIN, NAUSEA AND VOMITING. PATIENT HAS NOT DONE WELL. SHE LOOKED BETTER THIS AM BUT LATER GOT WORSE WITH DYSPNEA. THEY CALLED ME. I ORDERED ABG AND ASKED TO CALL DR. KO HE HAS BEEN HER DOCTOR BEFORE. DR. KO INTUABTED HER FOR RESPIRATORY FAILURE. SHE IS NOT GETTING BETTER. SHE IS STILL FULL CODE. SHE NOW IS INTUBATED, ON IV ABX AND LEVOPHED IV. MS DELACRUZ IS WEAK, DYSPNEIC, FATIGUED AND NOT ABLE TO BREATH ON HER OWN. SHE HAS NO PAIN. Review of Systems 10-point ROS is otherwise unremarkable General: Weakness, Malaise Physical Examination - Vital Signs Temperature: 98.9 F Blood Pressure: 103/76 Pulse: 80 Respirations: 17 Pulse Ox (%): 96 - Physical Exam General: Moderate distress, Obese, Other (LETHARGIC) HEENT: Atraumatic, PERRLA, EOMI Neck: Supple, JVD not distended Respiratory: Diminished Cardiovascular: Regular rate/rhythm, Normal S1 S2, Other (L SIDE LOWER NECK- HD CATHETER. NO TENDERNESS, NO PUS BUT LOOKS BETTER THAN A FEW DAYS AGO REGARDING PINK DISCOLORATION ON THE SKIN COVERING IT.) Gastrointestinal: Normal bowel sounds, No tenderness Musculoskeletal: No tenderness Integumentary: No rashes Neurological: Normal speech, Normal tone, Normal affect Lymphatics: No axilla or inguinal lymphadenopathy - Studies Medications List Reviewed: Yes Assessment And Plan - Current Problems (Diagnosis) (1) Septic shock Current Visit: Yes Status: Acute Plan: SHE IS SEPTIC AGAIN. I HAD TALKED TO DR. WINTERS ABOUT THE CATHETER FOR HD. IF THIS COULD BE SOURCE OF INFECTION. IN [place] THIS WAS RULED OUT. SHE WAS TREATED FOR UROSEPSIS IN [place]. SEE HPI FOR DETAILS. I SUSPECT THE CATHTER NEEDS TO COME OUT IT IS FOREIGN BODY AND SHE IS GETTING SEPTIC AGAIN. I CALLED DR. WINTERS. I SUSPECT THE CATHETER TO BE SOURCE OF INFECTION AGAIN. I CALLED DR. BURROWS AND EXPRESSED CONCERN ABOUT THE DIALYSIS CATHETER. SUPERFICIALLY IT IT PALPABLE AND NOT TENDER. PROCALCITONIN IS HIGH. RESUME VANCOMYCIN AND MERREM. CAN'T RULE OUT ASHLYN -INVASIVE. ADD DIFLUCAN 800 MG DAILY SHE IS CRITICAL AND IT WILL TAKE WEEKS TO GROW ASHLYN. [facility] NO CULTURES ARE POSITIVE, HER ADMISSION PICTURE LIKE EXAMINED IN ER SUGGESTS ME THAT SHE IS SEPTIC. SHE WILL NOT HAVE HYPOTENSION, HIGH PROCALCITONIN AND HIGH WHITE COUNT WITHOUT SEPSIS. SHE MAY HAVE CANDIDEMIA THAT TAKES LONG TIME TO GROW IN THE BLOOD. PROGNOSIS IS POOR. IS AWARE. (2) ESRD (end stage renal disease) on dialysis Current Visit: No Status: Chronic Plan: ON HD CONTINUE. (3) Pickwickian syndrome Current Visit: No Status: Chronic Plan: ABG CHECK LEAVE OXYGEN TO LEAST POSSIBLE. HYERCAPNEA RESPIRATORY FAILURE. PH IS LOW. HD WILL BE ADJUSTED. (4) Pulmonary HTN Onset Date: 11/23/17 Current Visit: No Status: Chronic Plan: NO CHANGES. SHE HAS HAD THIS FOR LONG DURATION. (5) Dyspnea Current Visit: No Status: Acute Plan: SHE HAS SEVERE PULMONARY HTN. NO CHF ON X RAY. INTERSTITIAL CHANGES IN ADDITION TO HYPOTENSION MAY SUGGEST ARDS OR BEGINING OF IT. CONSULT DR. VILLARREAL FOR CRITICAL CARE. SHE IS NOT DNR. SHE LAST ADMISSION CHANGED HER DECISION. PROGNOSIS IS POOR. Qualifiers: Dyspnea type: acute respiratory distress Qualified Code(s): R06.03 - Acute respiratory distress
[2018-12-22] MEDS: MIDODRINE HCL 5 MG TABLET PO PRN (15:39)
[2018-12-22] MEDS: ALBUMIN HUMAN 25% 50 ML IV SCH (18:00)
[2018-12-22] MEDS: ALLOPURINOL 100 MG TAB PO SCH (21:06)
[2018-12-22] MEDS: ESZOPICLONE 1 MG TAB PO SCH (21:06)
[2018-12-22] MEDS: ROSUVASTATIN 10 MG TAB PO SCH (21:06)
[2018-12-22] MEDS: Meropenem 500 MG in NA CHLORIDE 0.9% 100 ML IV SCH (21:08)
[2018-12-22] MEDS: LORATADINE 10 MG TAB PO SCH (21:13)
[2018-12-22] MEDS: FLUCONAZOLE 400 MG IVPB 400 MG/200 ML BAG IV SCH (22:14)
[2018-12-22 23:26] LABS: Arterial Blood Carboxyhemoglob 1.8 % (0-1.5); Blood Gas Oxyhemoglobin 93.5 % (94-97); Blood O2 Saturation 95.5 % (92-98.5)
[2018-12-23 04:06] LABS: HBsAG Nonreactive (Nonreactive)
[2018-12-23] MEDS: LEVOTHYROXINE SOD 0.1 MG TAB PO SCH (06:21)
[2018-12-23] MEDS: IPRATROPIUM NS SCH ×3 (07:30→16:18)
[2018-12-23] MEDS: CA ACETATE 667 MG CAP PO SCH ×3 (08:00→17:35)
[2018-12-23 08:18] LABS: Basophils % 0.5 % (0-1.3); Lymphocytes % 8.5 % (15.3-44.8); MPV 6.2 fL (7.6-11.3); Monocytes % 10.9 % (3.3-12.3); RBC Red Blood Cell Count 2.65 M/uL (3.86-4.86)
[2018-12-23 08:36] LABS: Albumin 2.4 g/dL (3.4-5.0); Bilirubin Total 0.3 mg/dL (0.2-1.0); Magnesium 2.3 mg/dL (1.8-2.4); Potassium 4.2 mmol/L (3.5-5.1); Protein, Total 6.3 g/dL (6.4-8.2)
[2018-12-23] MEDS: ICOSAPENT ETHYL 1 GM CAP PO SCH (09:00)
[2018-12-23] MEDS: [UNRECOGNIZED DRUG - OTHER] PO SCH (09:00)
[2018-12-23] MEDS: DIVALPROEX DR 500MG TAB PO SCH ×2 (09:20→21:03)
[2018-12-23] MEDS: APIXABAN 2.5 MG TABLET PO SCH ×2 (09:20→21:03)
[2018-12-23] MEDS: CYCLOSPORINE EACH EYE SCH ×2 (09:20→21:01)
[2018-12-23] MEDS: FAMOTIDINE 20 MG/2 ML VIAL IV SCH (09:20)
[2018-12-23] MEDS: THIAMINE HCL 100 MG TABLET PO SCH (09:20)
[2018-12-23] MEDS: OLOPATADINE HCL NS SCH ×2 (09:21→21:01)
[2018-12-23 10:07] LABS: Arterial Blood Carboxyhemoglob 1.8 % (0-1.5); Blood Gas Oxyhemoglobin 93.1 % (94-97); Blood O2 Saturation 95.5 % (92-98.5)
--- NOTE | 2018-12-23 12:33 | PN ---
Date of Progress Note: 12/23/2018 Subjective: Ms. Plunkett remains in sinus rhythm on IV amiodarone. She is also on Eliquis. Continues to have hemodialysis. She continued treatment for her pulmonary hypertension. No new issues. For n ow, remained on the CPAP and BiPAP with adequate O2 saturation. We will continue to follow her. NORMA/HAYLIE Voice ID: [id number] Report ID: [id number]
[2018-12-23] MEDS: SODIUM BICARB 325 MG TAB PO SCH ×3 (12:58→21:02)
--- NOTE | 2018-12-23 13:32 | P.PN ---
Subjective Date of Service: 12/23/18 Chief Complaint: Respiratory failure Subjective: Worsening LAST NIGHT SHE HAD HYPOTENSION, ER CAME AND CARDIOVERTED HER. SHE IS ON IV ABX. DID NOT TOLERATE AMIODARONE. DR MENDOZA ON THE CASE. SHE DOES NOT HAVE CHEST PAIN, ABDOMEN PAIN, NAUSEA AND VOMITING. PATIENT HAS NOT DONE WELL. SHE LOOKED BETTER THIS AM BUT LATER GOT WORSE WITH DYSPNEA. THEY CALLED ME. I ORDERED ABG AND ASKED TO CALL DR. KO HE HAS BEEN HER DOCTOR BEFORE. DR. KO INTUABTED HER FOR RESPIRATORY FAILURE. SHE IS NOT GETTING BETTER. SHE IS STILL FULL CODE. SHE NOW IS INTUBATED, ON IV ABX AND LEVOPHED IV. MS DELACRUZ IS WEAK, DYSPNEIC, FATIGUED AND NOT ABLE TO BREATH ON HER OWN. SHE HAS NO PAIN. SHE IS WEAK, NOT ABLE TO BREATH, SHE FAILED TRIAL OFF BIPAP. SHE IS CONFUSED. Review of Systems 10-point ROS is otherwise unremarkable General: Weakness, Malaise Respiratory: Shortness of Breath Physical Examination - Vital Signs Temperature: 97.6 F Blood Pressure: 108/54 Pulse: 76 Respirations: 14 Pulse Ox (%): 98 - Physical Exam General: Moderate distress, Confused (LETHARGIC WHEN CO2 IS HIGH.), Obese HEENT: Atraumatic, PERRLA, EOMI Neck: Supple, JVD not distended Respiratory: Diminished Cardiovascular: Regular rate/rhythm, Normal S1 S2 Gastrointestinal: Normal bowel sounds, No tenderness Musculoskeletal: No tenderness Integumentary: No rashes Neurological: Normal speech, Normal tone, Normal affect Lymphatics: No axilla or inguinal lymphadenopathy - Studies Microbiology Data (last 24 hrs): 12/17/18 17:37 Blood - Blood Aerobic Blood Culture - Final No growth in 5 days. 12/17/18 17:37 Blood - Blood Anaerobic Blood Culture - Final No growth in 5 days. Medications List Reviewed: Yes Assessment And Plan - Current Problems (Diagnosis) (1) Septic shock Current Visit: Yes Status: Acute Plan: SHE IS SEPTIC AGAIN. I HAD TALKED TO DR. WINTERS ABOUT THE CATHETER FOR HD. IF THIS COULD BE SOURCE OF INFECTION. IN [place] THIS WAS RULED OUT. SHE WAS TREATED FOR UROSEPSIS IN [place]. SEE HPI FOR DETAILS. I SUSPECT THE CATHTER NEEDS TO COME OUT IT IS FOREIGN BODY AND SHE IS GETTING SEPTIC AGAIN. I CALLED DR. WINTERS. I SUSPECT THE CATHETER TO BE SOURCE OF INFECTION AGAIN. I CALLED DR. BURROWS AND EXPRESSED CONCERN ABOUT THE DIALYSIS CATHETER. SUPERFICIALLY IT IT PALPABLE AND NOT TENDER. PROCALCITONIN IS HIGH. RESUME VANCOMYCIN AND MERREM. CAN'T RULE OUT ASHLYN -INVASIVE. ADD DIFLUCAN 800 MG DAILY SHE IS CRITICAL AND IT WILL TAKE WEEKS TO GROW ASHLYN. [facility] NO CULTURES ARE POSITIVE, HER ADMISSION PICTURE LIKE EXAMINED IN ER SUGGESTS ME THAT SHE IS SEPTIC. SHE WILL NOT HAVE HYPOTENSION, HIGH PROCALCITONIN AND HIGH WHITE COUNT WITHOUT SEPSIS. SHE MAY HAVE CANDIDEMIA THAT TAKES LONG TIME TO GROW IN THE BLOOD. PROGNOSIS IS POOR. IS AWARE. CULTURES ARE NEGATIVE. SHE HAD ALL SIGNS OF IT ON ADMISSION. I WILL STOP VANCOMYCIN AND MERREM CONTINUE DIFLUCAN WE ARE NOT SURE ABOUT FUNGAL INFECTION. WE CALLED [facility] TO HOLD CUTLURES FOR TWO WEEKS AND ADD BETA GLUCAN TEST. (2) ESRD (end stage renal disease) on dialysis Current Visit: No Status: Chronic Plan: ON HD CONTINUE. (3) Pickwickian syndrome Current Visit: No Status: Chronic Plan: ABG CHECK LEAVE OXYGEN TO LEAST POSSIBLE. HYERCAPNEA RESPIRATORY FAILURE. PH IS LOW. HD WILL BE ADJUSTED. (4) Pulmonary HTN Onset Date: 11/23/17 Current Visit: No Status: Chronic Plan: NO CHANGES. SHE HAS HAD THIS FOR LONG DURATION. (5) Dyspnea Current Visit: No Status: Acute Plan: SHE HAS SEVERE PULMONARY HTN. NO CHF ON X RAY. INTERSTITIAL CHANGES IN ADDITION TO HYPOTENSION MAY SUGGEST ARDS OR BEGINING OF IT. CONSULT DR. VILLARREAL FOR CRITICAL CARE. SHE IS NOT DNR. SHE LAST ADMISSION CHANGED HER DECISION. PROGNOSIS IS POOR. Qualifiers: Dyspnea type: acute respiratory distress Qualified Code(s): R06.03 - Acute respiratory distress (6) Respiratory failure Current Visit: Yes Status: Acute Plan: WITH HYRCAPNEA MEANS INABILITY TO REMOVE CO2 FROM BLOOD WITH REDUCED BREATH SOUNDS. SHE HAS OBESITY HYPOVENTILATION SYNDROME. SHE MAY HAV M GRAVIES. WE SENT ANTIBODIES FOR THE SAME. START STEROID TRIAL AGAIN. CONTINUE DIFLUCAN TO COVER IMPIRIC INFECTION. I TALKED TO HER WITH [facility] TRAN. ABOUT DNR. SHE MAY GET MORE LUCID ON BIPAP TO DECIDE. SHE IS TERMINAL PER DR. AMARO FOR PULMONARY HTN. WE ALSO TALKED TO TODAY ABOUT DNR STATUS AND IF SHE CAN'T DECIDE HE WILL DECIDE. Qualifiers: Chronicity: acute on chronic Respiratory failure complication: hypoxia and hypercapnia Qualified Code(s): J96.21 - Acute and chronic respiratory failure with hypoxia; J96.22 - Acute and chronic respiratory failure with hypercapnia
[2018-12-23 13:47] LABS: Arterial Blood Carboxyhemoglob 1.7 % (0-1.5)
[2018-12-23] MEDS: WATER FOR INJ,STERILE 10 ML IV SCH ×2 (16:18→21:00)
[2018-12-23] MEDS: HYDROCORTISONE SUC 100 MG INJ IV SCH ×2 (16:18→21:00)
[2018-12-23] MEDS: ALLOPURINOL 100 MG TAB PO SCH (21:00)
[2018-12-23] MEDS: LORATADINE 10 MG TAB PO SCH (21:01)
[2018-12-23] MEDS: ROSUVASTATIN 10 MG TAB PO SCH (21:01)
[2018-12-23] MEDS: ADCIRCA 20 MG PO SCH (21:02)
[2018-12-23] MEDS: FLUCONAZOLE 400 MG IVPB 400 MG/200 ML BAG IV SCH (21:03)
[2018-12-23] MEDS: ACETAMINOPHEN 500 MG TAB PO PRN (21:22)
--- NOTE | 2018-12-23 22:08 | PN ---
Date of Progress Note: 12/22/2018 Chief Complaint: Congestive heart failure with exacerbation, hypoxemic respiratory failure, respirat ory acidosis, metabolic acidosis. History Of Present Illness: The patient was found to have fluid overload and additional dialysis berto eduled to obtain negative fluid balance. The patient has dilutional hyponatremia. Sodium level is 1 32. The patient had ABG done and it showed metabolic and respiratory acidosis, pH was 7.12, pCO2 was 71.8. The patient had dialysis done with additional session to control metabolic acidosis. Bicarbo adam with dialysis was adjusted. Review of Systems: The patient denies headache, vision changes. She complains of shortness of breath. She has PND and orthopnea. Physical Examination: Lungs: Crackles bilaterally present. Heart: S1-S2. Abdomen: Soft, benign. Extremities: Edema present in both legs. Laboratory Data: Chemistry: Sodium 142, potassium 4.9, chloride 98, CO2 of 24, BUN 49, creatinine 4 .99, phosphorus is 8.9, calcium 8.5. Impression And Plan: 1.End-stage renal disease, severe fluid overload and congestive heart failure exacerbation. The pat ient will continue p.o. fluid restriction and low-sodium diet and advance ultrafiltration. The patie nt may need daily dialysis. 2.Metabolic and respiratory acidosis. Treatment with dialysis. The patient may benefit from replac ement of bicarbonate. 3.Hyperphosphatemia, renal osteodystrophy. Adjust binders. 4.Anemia. Monitor hemoglobin level. Adjust NOVA. EB/MODL Voice ID: [id number] Report ID: [id number]
[2018-12-24] MEDS: HYDROCORTISONE SUC 100 MG INJ IV SCH ×4 (03:09→21:50)
[2018-12-24] MEDS: WATER FOR INJ,STERILE 10 ML IV SCH ×3 (03:09→14:15)
[2018-12-24] MEDS: LEVOTHYROXINE SOD 0.1 MG TAB PO SCH (05:52)
[2018-12-24 06:02] LABS: Absolute Lymphocytes (CBC) 0.5 K/uL (0.7-4.9); Basophils % 0.2 % (0-1.3); Eosinophils % 0.1 % (0-4.4); Hematocrit 25.3 % (36.0-45.0); Lymphocytes % 5.3 % (15.3-44.8); MPV 6.4 fL (7.6-11.3); Monocytes % 5.7 % (3.3-12.3); RBC Red Blood Cell Count 2.68 M/uL (3.86-4.86)
[2018-12-24 06:21] LABS: Albumin 2.2 g/dL (3.4-5.0); Bilirubin Total 0.3 mg/dL (0.2-1.0); Magnesium 2.4 mg/dL (1.8-2.4); Phosphorus 8.2 mg/dL (2.5-4.9); Potassium 4.5 mmol/L (3.5-5.1); Protein, Total 5.7 g/dL (6.4-8.2)
[2018-12-24] MEDS: IPRATROPIUM NS SCH ×3 (07:30→16:30)
[2018-12-24 07:59] LABS: Urine White Blood Cell Casts OK
[2018-12-24 08:00] LABS: Blood Morphology Comment NOT SEEN (NOT SEEN); Platelet Estimate ADEQ
[2018-12-24] MEDS ORDERED: ALPRAZOLAM 0.25 MG TABLET PO PRN (08:24)
[2018-12-24] MEDS: SODIUM BICARB 325 MG TAB PO SCH ×4 (08:56→21:50)
[2018-12-24] MEDS: DIVALPROEX DR 500MG TAB PO SCH ×2 (08:56→21:50)
[2018-12-24] MEDS: FAMOTIDINE 20 MG/2 ML VIAL IV SCH (08:57)
[2018-12-24] MEDS: CA ACETATE 667 MG CAP PO SCH ×3 (08:57→17:22)
[2018-12-24] MEDS: THIAMINE HCL 100 MG TABLET PO SCH (08:57)
[2018-12-24] MEDS: APIXABAN 2.5 MG TABLET PO SCH ×2 (08:57→21:50)
[2018-12-24] MEDS: [UNRECOGNIZED DRUG - OTHER] PO SCH (09:00)
[2018-12-24] MEDS: ADCIRCA 20 MG PO SCH ×2 (09:05→21:50)
[2018-12-24] MEDS: OLOPATADINE HCL NS SCH ×2 (09:06→21:50)
[2018-12-24] MEDS: CYCLOSPORINE EACH EYE SCH ×2 (09:06→21:50)
[2018-12-24 09:35] LABS: Arterial Blood Carboxyhemoglob 1.5 % (0-1.5); Blood Gas Oxyhemoglobin 86.8 % (94-97); Blood O2 Saturation 88.7 % (92-98.5)
[2018-12-24] MEDS: ACETAMINOPHEN 500 MG TAB PO PRN (09:48)
[2018-12-24] MEDS: AMIODARONE HCL 200 MG TAB PO SCH ×2 (11:43→21:50)
--- NOTE | 2018-12-24 12:52 | P.PN ---
Subjective Date of Service: 12/24/18 Chief Complaint: Respiratory failure No acid changer the weekend patient is still hypercapnic acidotic week lethargic and drowsy undergoing dialysis steroids was started yesterday there is no evidence of sepsis bicarbonate was increased in the dialysis fluid continue with BiPAP Dc all sedatives use BusPar for anxiety Review of Systems General: Weakness Respiratory: Shortness of Breath Physical Examination - Vital Signs Temperature: 97.6 F Blood Pressure: 148/70 Pulse: 69 Respirations: 14 Pulse Ox (%): 100 - Physical Exam General: Alert, Oriented x3, Moderate distress Respiratory: Clear to auscultation bilaterally, Diminished Cardiovascular: No edema, Regular rate/rhythm - Studies Medications List Reviewed: Yes Assessment & Plan - Problems (Diagnosis) (1) Respiratory failure Current Visit: Yes Status: Acute Plan: Patient has chronic respiratory failure remains acidotic she is chronically hypercapnic with severe pulmonary hypertension sildenafil 10 mg twice a day was started increase by 10 mg a day to a maximal 20 mg 3 times a day patient has minimal oxygen requirement can use her home noninvasive ventilator no evidence of sepsis currently on trial of steroids change to p.o. prednisone for the next 4 or 5 days Dc there is any change labs reviewed cultures all negative can change to p.o. Diflucan for now Qualifiers: Chronicity: acute on chronic Respiratory failure complication: hypoxia and hypercapnia Qualified Code(s): J96.21 - Acute and chronic respiratory failure with hypoxia; J96.22 - Acute and chronic respiratory failure with hypercapnia
--- NOTE | 2018-12-24 12:54 | PN ---
Mrs. Plunkett is 58. She has been in sinus rhythm now for about 5 days without any interruptions. I pl an to stop the IV amiodarone, switch it to oral. I believe the patient would be all right to transfe r out of intensive care once this is done. HEATHER/HAYLIE Voice ID: [id number] Report ID: [id number]
[2018-12-24] MEDS: BUSPIRONE HCL 5 MG TABLET PO SCH ×2 (14:13→21:50)
[2018-12-24] MEDS ORDERED: POLYETHYL GLY 3350 17 GM/DOSE PO PRN (15:46)
--- NOTE | 2018-12-24 16:50 | P.PN ---
Subjective Date of Service: 12/24/18 Chief Complaint: Respiratory failure Subjective: Worsening LAST NIGHT SHE HAD HYPOTENSION, ER CAME AND CARDIOVERTED HER. SHE IS ON IV ABX. DID NOT TOLERATE AMIODARONE. DR MENDOZA ON THE CASE. SHE DOES NOT HAVE CHEST PAIN, ABDOMEN PAIN, NAUSEA AND VOMITING. PATIENT HAS NOT DONE WELL. SHE LOOKED BETTER THIS AM BUT LATER GOT WORSE WITH DYSPNEA. THEY CALLED ME. I ORDERED ABG AND ASKED TO CALL DR. KO HE HAS BEEN HER DOCTOR BEFORE. DR. KO INTUABTED HER FOR RESPIRATORY FAILURE. SHE IS NOT GETTING BETTER. SHE IS STILL FULL CODE. SHE NOW IS INTUBATED, ON IV ABX AND LEVOPHED IV. MS DELACRUZ IS WEAK, DYSPNEIC, FATIGUED AND NOT ABLE TO BREATH ON HER OWN. SHE HAS NO PAIN. SHE IS WEAK, NOT ABLE TO BREATH, SHE FAILED TRIAL OFF BIPAP. SHE IS CONFUSED. MS. DELACRUZ IS STILL THE SAME SHE IS NOT ABLE TO BREATH WITHOUT BIPAP. NURSE HAD A TALK WITH HER YESTERDAY AND SHE DID NOT WANT TO BE ON VENTILATOR AGAIN. SHE WANTS TO HAVE DNR STATUS. Review of Systems 10-point ROS is otherwise unremarkable General: Weakness, Malaise Respiratory: Shortness of Breath Physical Examination - Vital Signs Temperature: 97.6 F Blood Pressure: 141/78 Pulse: 79 Respirations: 17 Pulse Ox (%): 100 - Physical Exam General: Alert, Moderate distress, Obese, Other (ON BIPAP.) HEENT: Atraumatic, PERRLA, EOMI Neck: Supple, JVD not distended Respiratory: Diminished Cardiovascular: Regular rate/rhythm, Normal S1 S2 Gastrointestinal: Normal bowel sounds, No tenderness Musculoskeletal: No tenderness Integumentary: No rashes Neurological: Normal speech, Normal tone, Normal affect Lymphatics: No axilla or inguinal lymphadenopathy - Studies Medications List Reviewed: Yes Assessment And Plan - Current Problems (Diagnosis) (1) Septic shock Current Visit: Yes Status: Acute Plan: SHE IS SEPTIC AGAIN. I HAD TALKED TO DR. WINTERS ABOUT THE CATHETER FOR HD. IF THIS COULD BE SOURCE OF INFECTION. IN [place] THIS WAS RULED OUT. SHE WAS TREATED FOR UROSEPSIS IN [place]. SEE HPI FOR DETAILS. I SUSPECT THE CATHTER NEEDS TO COME OUT IT IS FOREIGN BODY AND SHE IS GETTING SEPTIC AGAIN. I CALLED DR. WINTERS. I SUSPECT THE CATHETER TO BE SOURCE OF INFECTION AGAIN. I CALLED DR. BURROWS AND EXPRESSED CONCERN ABOUT THE DIALYSIS CATHETER. SUPERFICIALLY IT IT PALPABLE AND NOT TENDER. PROCALCITONIN IS HIGH. RESUME VANCOMYCIN AND MERREM. CAN'T RULE OUT ASHLYN -INVASIVE. ADD DIFLUCAN 800 MG DAILY SHE IS CRITICAL AND IT WILL TAKE WEEKS TO GROW ASHLYN. [facility] NO CULTURES ARE POSITIVE, HER ADMISSION PICTURE LIKE EXAMINED IN ER SUGGESTS ME THAT SHE IS SEPTIC. SHE WILL NOT HAVE HYPOTENSION, HIGH PROCALCITONIN AND HIGH WHITE COUNT WITHOUT SEPSIS. SHE MAY HAVE CANDIDEMIA THAT TAKES LONG TIME TO GROW IN THE BLOOD. PROGNOSIS IS POOR. IS AWARE. CULTURES ARE NEGATIVE. SHE HAD ALL SIGNS OF IT ON ADMISSION. I WILL STOP VANCOMYCIN AND MERREM CONTINUE DIFLUCAN WE ARE NOT SURE ABOUT FUNGAL INFECTION. WE CALLED [facility] TO HOLD CUTLURES FOR TWO WEEKS AND ADD BETA GLUCAN TEST. (2) ESRD (end stage renal disease) on dialysis Current Visit: No Status: Chronic Plan: ON HD CONTINUE. (3) Pickwickian syndrome Current Visit: No Status: Chronic Plan: ABG CHECK LEAVE OXYGEN TO LEAST POSSIBLE. HYERCAPNEA RESPIRATORY FAILURE. PH IS LOW. HD WILL BE ADJUSTED. (4) Pulmonary HTN Onset Date: 11/23/17 Current Visit: No Status: Chronic Plan: NO CHANGES. SHE HAS HAD THIS FOR LONG DURATION. (5) Dyspnea Current Visit: No Status: Acute Plan: SHE HAS SEVERE PULMONARY HTN. NO CHF ON X RAY. INTERSTITIAL CHANGES IN ADDITION TO HYPOTENSION MAY SUGGEST ARDS OR BEGINING OF IT. CONSULT DR. VILLARREAL FOR CRITICAL CARE. SHE IS NOT DNR. SHE LAST ADMISSION CHANGED HER DECISION. PROGNOSIS IS POOR. Qualifiers: Dyspnea type: acute respiratory distress Qualified Code(s): R06.03 - Acute respiratory distress (6) Respiratory failure Current Visit: Yes Status: Acute Plan: WITH HYRCAPNEA MEANS INABILITY TO REMOVE CO2 FROM BLOOD WITH REDUCED BREATH SOUNDS. SHE HAS OBESITY HYPOVENTILATION SYNDROME. SHE MAY HAV M GRAVIES. WE SENT ANTIBODIES FOR THE SAME. START STEROID TRIAL AGAIN. CONTINUE DIFLUCAN TO COVER IMPIRIC INFECTION. I TALKED TO HER WITH [facility]. ABOUT DNR. SHE MAY GET MORE LUCID ON BIPAP TO DECIDE. SHE IS TERMINAL PER DR. AMARO FOR PULMONARY HTN. WE ALSO TALKED TO TODAY ABOUT DNR STATUS AND IF SHE CAN'T DECIDE HE WILL DECIDE. SHE IS NOT ABLE TO GET OFF BIPAP. SHE HAS SEVERE PULMONARY HTN AND OBEISTY HYPOVENTILATION SYNDROME. STEROID IS NOT CHANGING ANY OUTCOME. SHE WISHES TO HAVE DNR STATUS NOW. Qualifiers: Chronicity: acute on chronic Respiratory failure complication: hypoxia and hypercapnia Qualified Code(s): J96.21 - Acute and chronic respiratory failure with hypoxia; J96.22 - Acute and chronic respiratory failure with hypercapnia
[2018-12-24] MEDS: LORATADINE 10 MG TAB PO SCH (21:50)
[2018-12-24] MEDS: FLUCONAZOLE 400 MG IVPB 400 MG/200 ML BAG IV SCH (21:50)
[2018-12-24] MEDS: ROSUVASTATIN 10 MG TAB PO SCH (21:50)
--- NOTE | 2018-12-25 01:07 | PN ---
Date of Progress Note: 12/24/2018 Chief Complaint: End-stage renal disease, congestive heart failure, respiratory failure, metabolic a cidosis, respiratory acidosis. The patient is started on sodium bicarbonate tablets. The patient is on BiPAP for respiratory failur e. The patient is undergoing dialysis today to obtain ultrafiltration and provide metabolic clearanc e. The patient has severe hypercapnia with severe pulmonary hypertension and is started on sildenafi l 10 mg twice a day. Review of Systems: Denies headache, vision changes. Complains of shortness of breath. Physical Examination: Lungs: Crackles bilaterally at bases. Heart: S1-S2. Abdomen: Soft, benign. Extremities: Edema present. Impression And Plan: 1.End-stage renal disease, fluid overload. Ultrafiltration will be obtained. Monitor blood pressur e. Adjust ultrafiltration goal. 2.Anemia. Continue NOVA. 3.Renal osteodystrophy. Phosphorus level is elevated. Binders were resumed. Monitor phosphorus le martin. 4.Respiratory failure. Continue BiPAP. 5.Hypertension, controlled. EB/MODL Voice ID: [id number] Report ID: [id number]
[2018-12-25] MEDS: HYDROCORTISONE SUC 100 MG INJ IV SCH ×2 (02:55→09:35)
[2018-12-25] MEDS: ALLOPURINOL 100 MG TAB PO SCH ×2 (03:07→20:57)
[2018-12-25 05:10] LABS: Absolute Lymphocytes (CBC) 0.8 K/uL (0.7-4.9); Basophils % 0.1 % (0-1.3); Hematocrit 24.9 % (36.0-45.0); Lymphocytes % 9.1 % (15.3-44.8); MPV 6.6 fL (7.6-11.3); Monocytes % 8.7 % (3.3-12.3); RBC Red Blood Cell Count 2.64 M/uL (3.86-4.86)
[2018-12-25 05:20] LABS: Albumin 2.3 g/dL (3.4-5.0); Bilirubin Total 0.3 mg/dL (0.2-1.0); Magnesium 2.3 mg/dL (1.8-2.4); Phosphorus 5.1 mg/dL (2.5-4.9); Potassium 4.1 mmol/L (3.5-5.1); Protein, Total 5.7 g/dL (6.4-8.2)
[2018-12-25] MEDS: LEVOTHYROXINE SOD 0.1 MG TAB PO SCH (05:53)
[2018-12-25] MEDS: IPRATROPIUM NS SCH (07:30)
[2018-12-25] MEDS: ADCIRCA 20 MG PO SCH (09:34)
[2018-12-25] MEDS: OLOPATADINE HCL NS SCH ×2 (09:34→20:57)
[2018-12-25] MEDS: FAMOTIDINE 20 MG/2 ML VIAL IV SCH (09:35)
[2018-12-25] MEDS: BUSPIRONE HCL 5 MG TABLET PO SCH ×2 (09:35→20:55)
[2018-12-25] MEDS: DIVALPROEX DR 500MG TAB PO SCH ×2 (09:35→20:56)
[2018-12-25] MEDS: SODIUM BICARB 325 MG TAB PO SCH (09:35)
[2018-12-25] MEDS: APIXABAN 2.5 MG TABLET PO SCH ×2 (09:35→20:56)
[2018-12-25] MEDS: CA ACETATE 667 MG CAP PO SCH ×3 (09:35→17:48)
[2018-12-25] MEDS: WATER FOR INJ,STERILE 10 ML IV SCH (09:35)
[2018-12-25] MEDS: THIAMINE HCL 100 MG TABLET PO SCH (09:36)
[2018-12-25] MEDS: LACTOBACILLUS/ACIDOPHILUS TAB PO SCH (09:36)
[2018-12-25] MEDS: AMIODARONE HCL 200 MG TAB PO SCH ×2 (09:36→20:55)
[2018-12-25] MEDS: CYCLOSPORINE EACH EYE SCH ×2 (09:36→20:55)
[2018-12-25] MEDS ORDERED: EPOETIN ALFA 10,000 UNIT/ML VIAL SQ SCH (10:29)
[2018-12-25] MEDS: ACETAMINOPHEN 500 MG TAB PO PRN ×2 (10:39→18:18)
[2018-12-25 10:57] LABS: Arterial Blood Carboxyhemoglob 1.8 % (0-1.5); Blood Gas Oxyhemoglobin 91.3 % (94-97); Blood O2 Saturation 93.5 % (92-98.5)
--- NOTE | 2018-12-25 11:41 | RAD REPORT ---
EXAM DESCRIPTION: RAD - Chest Single View - 12/25/2018 11:21 am CLINICAL HISTORY: Shortness of breath COMPARISON: December 22 TECHNIQUE: AP portable chest image was obtained 1103 hours . FINDINGS: Left-sided dialysis catheter is in place. Bilateral pleural effusions are present. Left-si de pleural fluid has diminished. Interstitial pattern is prominent but not clearly different. Cardiom egaly and mild vascular engorgement remain. No pneumothorax. No acute bony abnormality seen. No acute aortic findings suspected. IMPRESSION: Left pleural effusion and left lung base atelectasis improved slightly December 22 examinati on. Interstitial markings remain prominent but not clearly different from comparison.
--- NOTE | 2018-12-25 11:50 | P.PN ---
Subjective Date of Service: 12/25/18 Chief Complaint: Respiratory failure Patient has improved she is more alert responsive cooperative no change with steroids since the bicarbonate has been increased she is feeling better Review of Systems General: Weakness Respiratory: Shortness of Breath Physical Examination - Vital Signs Temperature: 98.1 F Blood Pressure: 133/78 Pulse: 80 Respirations: 22 Pulse Ox (%): 99 - Physical Exam General: Alert, In no apparent distress, Oriented x3 Neck: Supple Respiratory: Clear to auscultation bilaterally, Diminished Cardiovascular: No edema, Regular rate/rhythm - Studies Medications List Reviewed: Yes Assessment & Plan - Problems (Diagnosis) (1) Respiratory failure Current Visit: Yes Status: Acute Plan: Patient is doing much better blood gases reviewed acidosis has improved the Dc steroids resume 2 mg of Lunesta increase at [place] to 20 mg daily transfer to the floor bedside physical therapy Qualifiers: Chronicity: acute on chronic Respiratory failure complication: hypoxia and hypercapnia Qualified Code(s): J96.21 - Acute and chronic respiratory failure with hypoxia; J96.22 - Acute and chronic respiratory failure with hypercapnia
--- NOTE | 2018-12-25 12:59 | PN ---
Date of Progress Note: 12/25/2018 Subjective: The patient was admitted with septic shock/cardiogenic shock secondary to atrial fibrill ation with rapid ventricular response. The patient since then has significant shortness of breath, b een dialyze intermittently 3-5 times a week. The patient has still significant hypercapnic respirato ry failure test tachypneic on rest. Physical Examination: Vital Signs: When I saw the patient blood pressure 140/73, pulse of 68. Chest: Crackles bilateral, more prominent right base. Heart: S1 and S2. Systolic murmur. Abdomen: Soft and nontender. Extremities: Trace edema. The patient had right AV fistula, good thrill, not mature on the brachioc ephalic on the right side. The patient had left IJ PermCath. Laboratory Data: WBC 9.4, H and H 8/24.9, platelet 295. Sodium 134, potassium 4.1, bicarb 30, BUN 5 5, creatinine 4.3, calcium 8.5, phosphorus 5.1. Medications: Current medications the patient on its include: 1.Fluconazole. 2.Methocarbamol. 3.Midodrine. 4.Epogen. 5.Heparin. 6.Crestor. 7.Amiodarone. 8.Tylenol. 9.PhosLo. 10.Pepcid. 11.Levothyroxine. 12.Hydrocortisone. 13.Allopurinol. 14.Fentanyl p.r.n. 15.Thiamine. Her used home medication includes: 1.Tramadol. 2.Atrovent. 3.Esomeprazole. 4.Depakote. 5.Lunesta. 6.Bystolic. 7.Multivitamin. 8.Teldrin. 9.Detrol. Assessment And Plan: 1.End-stage renal disease, slightly on the wet side. I am going to go ahead and repeat chest x-ray today, and we will decide about doing sequential dialysis for the patient to establish better volume control. 2.Discontinue oral sodium bicarb. We will continue midodrine p.r.n. for support of blood pressure. 3.Hypertension, currently hypotension. Keep holding blood pressure medication to utilize the blood pressure for more ultrafiltration. 4.Anemia of chronic kidney disease. The patient is going to be dialyzed today or tomorrow, we going to go ahead and arrange for 1 unit of blood transfusion. 5.Hypercapnic respiratory failure secondary to pulmonary hypertension/tachypnea with respiratory katlyn lure. I am going to go ahead and switch her Solu-Cortef to Solu-Medrol. Start the patient on schedu le dose of albuterol and Atrovent, and we will follow up the patient with Pulmonary given the history of severe pulmonary hypertension. I am going to go ahead and do a compression pressure on the right IV fistula and we will do ABG before and after this trial and we will follow up the patient. 6.Bipolar. The patient used to have lithium toxicity and that is what had the kidney injury on her. We will consider resuming low dose of Xanax if okay with Pulmonary. 7.Respiratory failure, as above. Follow up with Pulmonary. 8.Secondary hyperpara. I am going to go ahead and continue current binder. We will follow up. ARIAN Voice ID: [id number] Report ID: [id number]
[2018-12-25] MEDS: LEVALBUTEROL 1.25 MG/3 ML NEB NEB PRN (13:15)
[2018-12-25] MEDS: IPRATROPIUM BROM 0.5MG/2.5ML NEB SCH ×2 (13:15→19:50)
[2018-12-25 13:39] LABS: Arterial Blood Carboxyhemoglob 1.7 % (0-1.5); Blood Gas Oxyhemoglobin 91.6 % (94-97); Blood O2 Saturation 93.6 % (92-98.5)
[2018-12-25] MEDS ORDERED: ALBUTEROL 2.5 MG/3 ML NEB SOL NEB SCH (14:00)
[2018-12-25] MEDS ORDERED: METHYLPREDNISOLONE 40 MG INJ IV SCH (17:00)
[2018-12-25] MEDS: LORATADINE/PSEUDO 12HR TAB PO SCH (19:39)
[2018-12-25] MEDS: ROSUVASTATIN 10 MG TAB PO SCH (20:55)
[2018-12-25] MEDS: FLUCONAZOLE 400 MG IVPB 400 MG/200 ML BAG IV SCH (20:57)
[2018-12-25] MEDS: ESZOPICLONE 1 MG TAB PO PRN (21:08)
--- NOTE | 2018-12-25 21:13 | P.PN ---
Subjective Date of Service: 12/25/18 Chief Complaint: Respiratory failure Subjective: Improving CARMINE IS DOING BETTER TODAY. HER PH HAS IMPROVED. SHE IS ON NASAL CANULA NOW. SHE WAS ABLE TO AMBULATE 100 FEET OR SO. THE ONLY CHANGES IN LAST 48 HOURS ARE STEROIDS IV TRIAL AND CHANGE OF SETTINGS IN HD TO IMPROVE THE COMPENSATIONS OF RESPIRATORY ACIDOSIS. Review of Systems 10-point ROS is otherwise unremarkable General: Weakness, Malaise Respiratory: Shortness of Breath Physical Examination - Vital Signs Temperature: 98.0 F Blood Pressure: 132/92 Pulse: 100 Respirations: 19 Pulse Ox (%): 100 - Physical Exam General: Alert, Moderate distress, Obese HEENT: Atraumatic, PERRLA, EOMI Neck: Supple, JVD not distended Respiratory: Clear to auscultation bilaterally, Normal air movement Cardiovascular: Regular rate/rhythm, Normal S1 S2 Gastrointestinal: Normal bowel sounds, No tenderness Musculoskeletal: No tenderness Integumentary: No rashes Neurological: Normal speech, Normal tone, Normal affect Lymphatics: No axilla or inguinal lymphadenopathy - Studies Medications List Reviewed: Yes Assessment And Plan - Current Problems (Diagnosis) (1) Septic shock Current Visit: Yes Status: Acute Plan: ON DAY OF ADMISSION SEPSIS WAS THE PICTURE WITH LOW BP , PERIPHERICAL SHOCK, HIGH PROCALCITONIN AND WBC ELEVATION WITHOUT STEROIDS USE. SHE STILL DID NOT SHOW ANY SOURCE OF INFECTION. I SUSPECT SHE MAY HAVE ASHLYN SEPTICEMIA AND I HAVE ASKED [facility] TO HOLD CULTURES FOR FUNGUS. ANYHOW SHE HAS IMPROVED WITH BICARB ADJUSTMENT IN HD. STEROID EFFECT IS UNCLEAR. (2) ESRD (end stage renal disease) on dialysis Current Visit: No Status: Chronic Plan: ON HD CONTINUE. (3) Pickwickian syndrome Current Visit: No Status: Chronic Plan: ABG CHECK LEAVE OXYGEN TO LEAST POSSIBLE. HYERCAPNEA RESPIRATORY FAILURE. PH IS LOW. HD WILL BE ADJUSTED. (4) Pulmonary HTN Onset Date: 11/23/17 Current Visit: No Status: Chronic Plan: NO CHANGES. SHE HAS HAD THIS FOR LONG DURATION. (5) Dyspnea Current Visit: No Status: Acute Plan: SHE HAS SEVERE PULMONARY HTN. NO CHF ON X RAY. INTERSTITIAL CHANGES IN ADDITION TO HYPOTENSION MAY SUGGEST ARDS OR BEGINING OF IT. CONSULT DR. VILLARREAL FOR CRITICAL CARE. SHE IS NOT DNR. SHE LAST ADMISSION CHANGED HER DECISION. PROGNOSIS IS POOR. Qualifiers: Dyspnea type: acute respiratory distress Qualified Code(s): R06.03 - Acute respiratory distress (6) Respiratory failure Current Visit: Yes Status: Acute Plan: PH HAS IMPROVED INTO 7.26 THERE IS A REMOTE POSSIBILTY OF M . GRAVIS BUT STEROID EFFECT IS UNCLEAR. SHE HAS IMPROVED IN 36 HOURS AFTER IV STEROIDS AT THE SAME TIME SHE HAD ADJUSMENT IN HD TO IMPROVE COMPENSATION. ARDS IS LIKELY ON CXR SHE HAS BEEN TREATED WITH ALL SUPPORTIVE THERAPY. Qualifiers: Chronicity: acute on chronic Respiratory failure complication: hypoxia and hypercapnia Qualified Code(s): J96.21 - Acute and chronic respiratory failure with hypoxia; J96.22 - Acute and chronic respiratory failure with hypercapnia
[2018-12-26] MEDS: IPRATROPIUM BROM 0.5MG/2.5ML NEB SCH ×4 (02:45→20:00)
[2018-12-26 05:48] LABS: Absolute Lymphocytes (CBC) 1.8 K/uL (0.7-4.9); Basophils % 0.1 % (0-1.3); Eosinophils % 0.3 % (0-4.4); Hematocrit 23.5 % (36.0-45.0); Lymphocytes % 19.2 % (15.3-44.8); MPV 6.7 fL (7.6-11.3); Monocytes % 15.1 % (3.3-12.3); RBC Red Blood Cell Count 2.48 M/uL (3.86-4.86)
[2018-12-26] MEDS: LEVOTHYROXINE SOD 0.1 MG TAB PO SCH (06:07)
[2018-12-26 06:10] LABS: Albumin 2.2 g/dL (3.4-5.0); Bilirubin Total 0.2 mg/dL (0.2-1.0); Magnesium 2.3 mg/dL (1.8-2.4); Phosphorus 5.3 mg/dL (2.5-4.9); Potassium 3.5 mmol/L (3.5-5.1); Protein, Total 5.3 g/dL (6.4-8.2)
[2018-12-26 08:31] LABS: Blood Morphology Comment NOTED (NOT SEEN); Platelet Estimate ADEQ; Toxic Granulation 1+
[2018-12-26 08:32] LABS: Anisocytosis 2+; Basophilic Stippling 2+; Polychromasia 1+
[2018-12-26] MEDS: LEVALBUTEROL 1.25 MG/3 ML NEB NEB PRN (08:33)
[2018-12-26] MEDS: CA ACETATE 667 MG CAP PO SCH ×3 (08:33→17:36)
[2018-12-26] MEDS: OLOPATADINE HCL NS SCH ×2 (08:34→20:12)
[2018-12-26] MEDS: AMIODARONE HCL 200 MG TAB PO SCH ×2 (08:34→20:12)
[2018-12-26] MEDS: THIAMINE HCL 100 MG TABLET PO SCH (08:34)
[2018-12-26] MEDS: LACTOBACILLUS/ACIDOPHILUS TAB PO SCH (08:34)
[2018-12-26] MEDS: ADCIRCA 20 MG PO SCH (08:35)
[2018-12-26] MEDS: DIVALPROEX DR 500MG TAB PO SCH ×2 (08:36→20:11)
[2018-12-26] MEDS: APIXABAN 2.5 MG TABLET PO SCH ×2 (08:36→20:10)
[2018-12-26] MEDS: BUSPIRONE HCL 5 MG TABLET PO SCH ×2 (08:36→20:10)
[2018-12-26] MEDS: CYCLOSPORINE EACH EYE SCH ×2 (08:37→20:35)
[2018-12-26] MEDS ORDERED: HOME MED 1 EA UNK PO SCH (09:00)
[2018-12-26] MEDS ORDERED: PROMETHAZINE 25 MG/ML VIAL IV SCH (09:00)
--- NOTE | 2018-12-26 09:27 | P.PN ---
Subjective Date of Service: 12/26/18 Chief Complaint: Respiratory failure Subjective: Improving pt with ESRD and SHANNA on nasal BiPAP at home , admitted for hypotension, developed acute resp failure and was intubated now extubated and improving Today Pt improving after steroids and increase Bicarb bath Hb dropped to 7.6 Hd today with 1 PRBC cultures so far -ve Cont fluconazole can be transferred to the floor after HD Physical Examination - Vital Signs Temperature: 97.9 F Blood Pressure: 108/56 Pulse: 77 Respirations: 12 Pulse Ox (%): 100 - Physical Exam General: In no apparent distress, Oriented x3, Obese HEENT: Atraumatic Neck: Supple, JVD not distended, Without JVD or thyroid abnormality Respiratory: Diminished Cardiovascular: No edema, Regular rate/rhythm, Normal S1 S2, No gallops, No rubs , No murmurs Gastrointestinal: Soft and benign, Non-distended - Studies Medications List Reviewed: Yes Assessment And Plan - Current Problems (Diagnosis) (1) Septic shock Current Visit: Yes Status: Acute (2) ESRD (end stage renal disease) on dialysis Current Visit: No Status: Chronic - Plan ESRD on HD TTsat at home via Tunneled cath will do MWF while hospitalzied renal diet renal dose meds Septic Shock possible septic F/u culture results , so far -ve Cont Abx pulm HTN on steroids and inhalers Dialysis via tunneled cath, which is the recommended access in pt the modrate to severe pulm HTN as AVF can aggravate it Hypecapneic resp failure hx of Interstitial lung disease on BiPAP at home cont steroids and inhalers Afib with RVR S/P cardioverison on Amiodarone on Eliquis anemia on NOVA will transfuse 1 PRBC with HD today MBD Phos improved on Binders Prognosis guarded
[2018-12-26] MEDS: FAMOTIDINE 20 MG TAB PO SCH ×2 (11:13→20:12)
[2018-12-26] MEDS: ACETAMINOPHEN 500 MG TAB PO PRN (11:32)
--- NOTE | 2018-12-26 12:32 | P.PN ---
Subjective Date of Service: 12/26/18 Chief Complaint: Respiratory failure Subjective: Improving CARMINE IS DOING BETTER TODAY. HER PH HAS IMPROVED. SHE IS ON NASAL CANULA NOW. SHE WAS ABLE TO AMBULATE 100 FEET OR SO. THE ONLY CHANGES IN LAST 48 HOURS ARE STEROIDS IV TRIAL AND CHANGE OF SETTINGS IN HD TO IMPROVE THE COMPENSATIONS OF RESPIRATORY ACIDOSIS. SHE HAS FELT BETTER LATELY. NO PAIN. WANTS HER SLEEPING PILL DAILY. Review of Systems 10-point ROS is otherwise unremarkable General: Weakness, Malaise Physical Examination - Vital Signs Temperature: 97.9 F Blood Pressure: 116/69 Pulse: 91 Respirations: 25 Pulse Ox (%): 97 - Physical Exam General: Alert, Obese HEENT: Atraumatic, PERRLA, EOMI Neck: Supple, JVD not distended Respiratory: Clear to auscultation bilaterally, Normal air movement Cardiovascular: Regular rate/rhythm, Normal S1 S2 Gastrointestinal: Normal bowel sounds, No tenderness Musculoskeletal: No tenderness Integumentary: No rashes Neurological: Normal speech, Normal tone, Normal affect Lymphatics: No axilla or inguinal lymphadenopathy - Studies Medications List Reviewed: Yes Assessment And Plan - Current Problems (Diagnosis) (1) Septic shock Current Visit: Yes Status: Acute Plan: ON DAY OF ADMISSION SEPSIS WAS THE PICTURE WITH LOW BP , PERIPHERICAL SHOCK, HIGH PROCALCITONIN AND WBC ELEVATION WITHOUT STEROIDS USE. SHE STILL DID NOT SHOW ANY SOURCE OF INFECTION. I SUSPECT SHE MAY HAVE ASHLYN SEPTICEMIA AND I HAVE ASKED [facility] TO HOLD CULTURES FOR FUNGUS. ANYHOW SHE HAS IMPROVED WITH BICARB ADJUSTMENT IN HD. STEROID EFFECT IS UNCLEAR. NO CULTURES YET. CONTINUE DIFLUCAN FOR 14 DAYS TO COMPLETE COURSE. (2) ESRD (end stage renal disease) on dialysis Current Visit: No Status: Chronic Plan: ON HD CONTINUE. (3) Pickwickian syndrome Current Visit: No Status: Chronic Plan: ABG CHECK LEAVE OXYGEN TO LEAST POSSIBLE. HYERCAPNEA RESPIRATORY FAILURE. PH IS LOW. HD WILL BE ADJUSTED. (4) Pulmonary HTN Onset Date: 11/23/17 Current Visit: No Status: Chronic Plan: NO CHANGES. SHE HAS HAD THIS FOR LONG DURATION. (5) Dyspnea Current Visit: No Status: Acute Plan: SHE HAS SEVERE PULMONARY HTN. NO CHF ON X RAY. INTERSTITIAL CHANGES IN ADDITION TO HYPOTENSION MAY SUGGEST ARDS OR BEGINING OF IT. CONSULT DR. VILLARREAL FOR CRITICAL CARE. SHE IS NOT DNR. SHE LAST ADMISSION CHANGED HER DECISION. PROGNOSIS IS POOR. Qualifiers: Dyspnea type: acute respiratory distress Qualified Code(s): R06.03 - Acute respiratory distress (6) Respiratory failure Current Visit: Yes Status: Acute Plan: PH HAS IMPROVED INTO 7.26 THERE IS A REMOTE POSSIBILTY OF M . GRAVIS BUT STEROID EFFECT IS UNCLEAR. SHE HAS IMPROVED IN 36 HOURS AFTER IV STEROIDS AT THE SAME TIME SHE HAD ADJUSMENT IN HD TO IMPROVE COMPENSATION. ARDS IS LIKELY ON CXR SHE HAS BEEN TREATED WITH ALL SUPPORTIVE THERAPY. Qualifiers: Chronicity: acute on chronic Respiratory failure complication: hypoxia and hypercapnia Qualified Code(s): J96.21 - Acute and chronic respiratory failure with hypoxia; J96.22 - Acute and chronic respiratory failure with hypercapnia
--- NOTE | 2018-12-26 12:57 | PN ---
Ms. Plunkett remains in sinus rhythm. She is still on amiodarone oral 400 b.i.d. I think in 2 days we w ill cut it down to 200 b.i.d. to see if she stays in sinus rhythm. She will get dialysis today and u nit of packed red blood cells as well because of anemia. Overall she seems to be making slow improve ments. HEATHER/HAYLIE Voice ID: [id number] Report ID: [id number]
[2018-12-26] MEDS: TRAMADOL HCL 50 MG TAB PO PRN (13:24)
[2018-12-26] MEDS: LORATADINE/PSEUDO 12HR TAB PO SCH (20:11)
[2018-12-26] MEDS: ROSUVASTATIN 10 MG TAB PO SCH (20:11)
[2018-12-26] MEDS ORDERED: NA CHLORIDE 0.9% 1,000 ML IV PRN (20:12)
[2018-12-26] MEDS: PROMETHAZINE 25 MG/ML VIAL IV SCH (20:12)
[2018-12-26] MEDS: ALLOPURINOL 100 MG TAB PO SCH (20:12)
[2018-12-26] MEDS ORDERED: NA CHLORIDE 0.9% 250 ML ONE (21:36)
[2018-12-26] MEDS: FLUCONAZOLE 400 MG IVPB 400 MG/200 ML BAG IV SCH (23:40)
[2018-12-27] MEDS: ACETAMINOPHEN 500 MG TAB PO PRN ×2 (01:01→19:44)
[2018-12-27 01:25] LABS: Hematocrit 28.7 % (36.0-45.0)
[2018-12-27] MEDS: IPRATROPIUM BROM 0.5MG/2.5ML NEB SCH ×4 (02:00→20:00)
[2018-12-27] MEDS: LEVOTHYROXINE SOD 0.1 MG TAB PO SCH (06:03)
[2018-12-27] MEDS: OLOPATADINE HCL NS SCH ×2 (08:15→21:57)
[2018-12-27] MEDS: ADCIRCA 20 MG PO SCH (08:15)
[2018-12-27] MEDS: BUSPIRONE HCL 5 MG TABLET PO SCH ×2 (08:15→22:00)
[2018-12-27] MEDS: APIXABAN 2.5 MG TABLET PO SCH ×2 (08:15→21:59)
[2018-12-27] MEDS: DIVALPROEX DR 500MG TAB PO SCH ×2 (08:15→21:59)
[2018-12-27] MEDS: THIAMINE HCL 100 MG TABLET PO SCH (08:16)
[2018-12-27] MEDS: AMIODARONE HCL 200 MG TAB PO SCH ×2 (08:16→21:59)
[2018-12-27] MEDS: LACTOBACILLUS/ACIDOPHILUS TAB PO SCH (08:16)
[2018-12-27] MEDS: FAMOTIDINE 20 MG TAB PO SCH ×2 (08:16→22:00)
[2018-12-27] MEDS: CYCLOSPORINE EACH EYE SCH ×2 (08:16→22:01)
[2018-12-27] MEDS: CA ACETATE 667 MG CAP PO SCH ×3 (08:16→16:48)
[2018-12-27] MEDS: TRAMADOL HCL 50 MG TAB PO PRN (09:23)
--- NOTE | 2018-12-27 14:08 | P.PN ---
Subjective Date of Service: 12/27/18 Chief Complaint: Respiratory failure pt with ESRD and SHANNA on nasal BiPAP at home , admitted for hypotension, developed acute resp failure and was intubated now extubated and improving Today Pt improving after steroids and increase Bicarb bath Hb up to 9.2 participating in PT/OT Bp borderline put stable HD tomorrow Physical Examination - Vital Signs Temperature: 97.3 F Blood Pressure: 105/60 Pulse: 96 Respirations: 26 Pulse Ox (%): 97 - Physical Exam General: Other (Sleeping , NAD ) Neck: Supple, Without JVD or thyroid abnormality Respiratory: Normal air movement, Diminished Cardiovascular: No edema, Regular rate/rhythm, Normal S1 S2, No gallops, No rubs , No murmurs Gastrointestinal: Normal bowel sounds, Soft and benign Musculoskeletal: No swelling - Studies Medications List Reviewed: Yes Assessment And Plan - Current Problems (Diagnosis) (1) Septic shock Current Visit: Yes Status: Acute (2) ESRD (end stage renal disease) on dialysis Current Visit: No Status: Chronic - Plan ESRD on HD TTsat at home via Tunneled cath will do MWF while hospitalzied renal diet renal dose meds Septic Shock possible septic F/u culture results , so far -ve Cont Abx pulm HTN on steroids and inhalers Dialysis via tunneled cath, which is the recommended access in pt the modrate to severe pulm HTN as AVF can aggravate it Hypecapneic resp failure hx of Interstitial lung disease on BiPAP at home cont steroids and inhalers Afib with RVR S/P cardioverison on Amiodarone on Eliquis anemia on NOVA transfuse to keep Hb >7.0 MBD Phos improved on Binders Prognosis guarded
[2018-12-27] MEDS: LORATADINE/PSEUDO 12HR TAB PO SCH (21:00)
[2018-12-27] MEDS: PROMETHAZINE 25 MG/ML VIAL IV SCH (21:00)
[2018-12-27] MEDS: ROSUVASTATIN 10 MG TAB PO SCH (21:00)
[2018-12-27] MEDS: ESZOPICLONE 1 MG TAB PO PRN (22:00)
[2018-12-27] MEDS: ALLOPURINOL 100 MG TAB PO SCH (22:00)
--- NOTE | 2018-12-27 22:00 | P.PN ---
Subjective Date of Service: 12/27/18 Chief Complaint: Respiratory failure Subjective: C/O voiced (ANXIETY) CARMINE IS DOING BETTER TODAY. HER PH HAS IMPROVED. SHE IS ON NASAL CANULA NOW. SHE WAS ABLE TO AMBULATE 100 FEET OR SO. THE ONLY CHANGES IN LAST 48 HOURS ARE STEROIDS IV TRIAL AND CHANGE OF SETTINGS IN HD TO IMPROVE THE COMPENSATIONS OF RESPIRATORY ACIDOSIS. SHE HAS FELT BETTER LATELY. NO PAIN. WANTS HER SLEEPING PILL DAILY. SHE IS DOING WELL. SHE HAS ANXIETY AND INSOMNIA. Review of Systems 10-point ROS is otherwise unremarkable General: Weakness, Malaise Physical Examination - Vital Signs Temperature: 97.8 F Blood Pressure: 136/62 Pulse: 98 Respirations: 20 Pulse Ox (%): 98 - Physical Exam General: Alert, Mild distress, Obese HEENT: Atraumatic, PERRLA, EOMI Neck: Supple, JVD not distended Respiratory: Clear to auscultation bilaterally, Normal air movement Cardiovascular: Regular rate/rhythm, Normal S1 S2 Gastrointestinal: Normal bowel sounds, No tenderness Musculoskeletal: No tenderness Integumentary: No rashes Neurological: Normal speech, Normal tone, Normal affect Lymphatics: No axilla or inguinal lymphadenopathy - Studies Medications List Reviewed: Yes Assessment And Plan - Current Problems (Diagnosis) (1) Septic shock Current Visit: Yes Status: Acute Plan: ON DAY OF ADMISSION SEPSIS WAS THE PICTURE WITH LOW BP , PERIPHERICAL SHOCK, HIGH PROCALCITONIN AND WBC ELEVATION WITHOUT STEROIDS USE. SHE STILL DID NOT SHOW ANY SOURCE OF INFECTION. I SUSPECT SHE MAY HAVE ASHLYN SEPTICEMIA AND I HAVE ASKED [facility] TO HOLD CULTURES FOR FUNGUS. ANYHOW SHE HAS IMPROVED WITH BICARB ADJUSTMENT IN HD. STEROID EFFECT IS UNCLEAR. NO CULTURES YET. CONTINUE DIFLUCAN FOR 14 DAYS TO COMPLETE COURSE. SO FAR NO CULTURES ARE POSITIVE. SHE IMPROVED SOMEHOW AFTER A FEW IMPIRIC THERAPIES- LIKE IV DIFLUCAN AND MANAGED HD WITH RAISED HCO3. I WILL CONTINUE DIFLUCAN FOR AT LEAST 10 DAYS. (2) ESRD (end stage renal disease) on dialysis Current Visit: No Status: Chronic Plan: ON HD CONTINUE. (3) Pickwickian syndrome Current Visit: No Status: Chronic Plan: ABG CHECK LEAVE OXYGEN TO LEAST POSSIBLE. HYERCAPNEA RESPIRATORY FAILURE. PH IS LOW. HD WILL BE ADJUSTED. (4) Pulmonary HTN Onset Date: 11/23/17 Current Visit: No Status: Chronic Plan: NO CHANGES. SHE HAS HAD THIS FOR LONG DURATION. (5) Dyspnea Current Visit: No Status: Acute Plan: SHE HAS SEVERE PULMONARY HTN. NO CHF ON X RAY. INTERSTITIAL CHANGES IN ADDITION TO HYPOTENSION MAY SUGGEST ARDS OR BEGINING OF IT. CONSULT DR. VILLARREAL FOR CRITICAL CARE. SHE IS NOT DNR. SHE LAST ADMISSION CHANGED HER DECISION. PROGNOSIS IS POOR. Qualifiers: Dyspnea type: acute respiratory distress Qualified Code(s): R06.03 - Acute respiratory distress (6) Respiratory failure Current Visit: Yes Status: Acute Plan: PH HAS IMPROVED INTO 7.26 THERE IS A REMOTE POSSIBILTY OF M . GRAVIS BUT STEROID EFFECT IS UNCLEAR. SHE HAS IMPROVED IN 36 HOURS AFTER IV STEROIDS AT THE SAME TIME SHE HAD ADJUSMENT IN HD TO IMPROVE COMPENSATION. ARDS IS LIKELY ON CXR SHE HAS BEEN TREATED WITH ALL SUPPORTIVE THERAPY. Qualifiers: Chronicity: acute on chronic Respiratory failure complication: hypoxia and hypercapnia Qualified Code(s): J96.21 - Acute and chronic respiratory failure with hypoxia; J96.22 - Acute and chronic respiratory failure with hypercapnia (7) Bipolar disorder Current Visit: No Status: Chronic Plan: SHE IS STAYING ANXIOUS. WILL MODIFY MEDS.
[2018-12-27] MEDS: FLUCONAZOLE 400 MG IVPB 400 MG/200 ML BAG IV SCH (23:35)
[2018-12-28] MEDS: IPRATROPIUM BROM 0.5MG/2.5ML NEB SCH ×4 (01:51→20:20)
[2018-12-28] MEDS: ACETAMINOPHEN 500 MG TAB PO PRN ×2 (03:55→18:32)
[2018-12-28] MEDS: LEVOTHYROXINE SOD 0.1 MG TAB PO SCH (05:30)
[2018-12-28] MEDS: LEVALBUTEROL 1.25 MG/3 ML NEB NEB PRN ×3 (08:00→20:20)
[2018-12-28] MEDS: ADCIRCA 20 MG PO SCH (09:00)
[2018-12-28] MEDS: LACTOBACILLUS/ACIDOPHILUS TAB PO SCH (09:23)
[2018-12-28] MEDS: THIAMINE HCL 100 MG TABLET PO SCH (09:23)
[2018-12-28] MEDS: DIVALPROEX DR 500MG TAB PO SCH ×2 (09:24→21:45)
[2018-12-28] MEDS: CA ACETATE 667 MG CAP PO SCH ×3 (09:24→17:31)
[2018-12-28] MEDS: APIXABAN 2.5 MG TABLET PO SCH ×2 (09:25→21:46)
[2018-12-28] MEDS: AMIODARONE HCL 200 MG TAB PO SCH ×2 (09:25→21:46)
[2018-12-28] MEDS: FAMOTIDINE 20 MG TAB PO SCH ×2 (09:25→21:46)
[2018-12-28] MEDS: BUSPIRONE HCL 5 MG TABLET PO SCH ×2 (09:25→22:01)
[2018-12-28] MEDS: CYCLOSPORINE EACH EYE SCH ×2 (09:26→21:41)
[2018-12-28] MEDS: OLOPATADINE HCL NS SCH ×2 (09:28→21:41)
--- NOTE | 2018-12-28 10:04 | P.PN ---
Subjective Date of Service: 12/28/18 Chief Complaint: Respiratory failure Doing much better ambulating. No new complaints. feeling week Review of Systems General: Weakness Respiratory: Shortness of Breath Physical Examination - Vital Signs Temperature: 97.1 F Blood Pressure: 133/65 Pulse: 106 Respirations: 20 Pulse Ox (%): 98 - Physical Exam General: Alert, In no apparent distress, Oriented x3 Neck: Supple Respiratory: Clear to auscultation bilaterally, Diminished Cardiovascular: No edema, Regular rate/rhythm - Studies Medications List Reviewed: Yes Assessment & Plan - Problems (Diagnosis) (1) Respiratory failure Current Visit: Yes Status: Acute Plan: Much improved . D/C Diflucan. CW Adcirca 20 mg daily VS stale O2 satisffactory / D/C home Qualifiers: Chronicity: acute on chronic Respiratory failure complication: hypoxia and hypercapnia Qualified Code(s): J96.21 - Acute and chronic respiratory failure with hypoxia; J96.22 - Acute and chronic respiratory failure with hypercapnia
--- NOTE | 2018-12-28 10:19 | P.PN ---
Subjective Date of Service: 12/28/18 Chief Complaint: Respiratory failure Subjective: Improving pt with ESRD and SHANNA on nasal BiPAP at home , admitted for hypotension, developed acute resp failure and was intubated now extubated and improving Today no overnight events stable VS off Diflucan participating in PT/OT Bp improving HD today Physical Examination - Vital Signs Temperature: 97.1 F Blood Pressure: 133/65 Pulse: 106 Respirations: 20 Pulse Ox (%): 98 - Physical Exam General: In no apparent distress, Oriented x3 HEENT: Atraumatic Neck: Supple, Without JVD or thyroid abnormality Respiratory: Normal air movement, Diminished, Other (Chronic venous statis ) Cardiovascular: No edema, Regular rate/rhythm, Normal S1 S2, No rubs, No murmurs Gastrointestinal: Normal bowel sounds, Soft and benign - Studies Medications List Reviewed: Yes Assessment And Plan - Current Problems (Diagnosis) (1) Septic shock Current Visit: Yes Status: Acute (2) ESRD (end stage renal disease) on dialysis Current Visit: No Status: Chronic - Plan ESRD on HD TTsat at home via Tunneled cath will do MWF while hospitalzied renal diet renal dose meds Septic Shock possible septic cultures -ve Cont Abx off diflucan pulm HTN on steroids and inhalers Dialysis via tunneled cath, which is the recommended access in pt the modrate to severe pulm HTN as AVF can aggravate it Hypecapneic resp failure hx of Interstitial lung disease on BiPAP at home cont steroids and inhalers Afib with RVR S/P cardioverison on Amiodarone on Eliquis anemia on NOVA transfuse to keep Hb >7.0 MBD Phos improved on Binders Prognosis guarded
[2018-12-28] MEDS: LORATADINE/PSEUDO 12HR TAB PO SCH (21:00)
[2018-12-28] MEDS: ALLOPURINOL 100 MG TAB PO SCH (21:43)
[2018-12-28] MEDS: QUETIAPINE 25 MG TAB PO SCH (21:46)
[2018-12-28] MEDS: ROSUVASTATIN 10 MG TAB PO SCH (21:47)
[2018-12-28] MEDS: PROMETHAZINE 25 MG/ML VIAL IV SCH (22:01)
[2018-12-28] MEDS: TRAMADOL HCL 50 MG TAB PO PRN (22:35)
[2018-12-28] MEDS: ESZOPICLONE 1 MG TAB PO PRN (22:35)
[2018-12-29] MEDS: IPRATROPIUM BROM 0.5MG/2.5ML NEB SCH ×4 (01:00→19:25)
[2018-12-29] MEDS: LEVOTHYROXINE SOD 0.1 MG TAB PO SCH (05:43)
[2018-12-29] MEDS: CYCLOSPORINE EACH EYE SCH ×2 (09:00→21:00)
[2018-12-29] MEDS: FAMOTIDINE 20 MG TAB PO SCH ×2 (09:31→21:39)
[2018-12-29] MEDS: AMIODARONE HCL 200 MG TAB PO SCH ×2 (09:32→21:38)
[2018-12-29] MEDS: CA ACETATE 667 MG CAP PO SCH ×3 (09:32→17:00)
[2018-12-29] MEDS: LACTOBACILLUS/ACIDOPHILUS TAB PO SCH (09:32)
[2018-12-29] MEDS: THIAMINE HCL 100 MG TABLET PO SCH (09:32)
[2018-12-29] MEDS: DIVALPROEX DR 500MG TAB PO SCH ×2 (09:33→21:39)
[2018-12-29] MEDS: APIXABAN 2.5 MG TABLET PO SCH ×2 (09:33→21:40)
[2018-12-29] MEDS: OLOPATADINE HCL NS SCH ×2 (09:34→21:41)
[2018-12-29] MEDS: BUSPIRONE HCL 5 MG TABLET PO SCH ×2 (09:34→21:38)
[2018-12-29] MEDS: ADCIRCA 20 MG PO SCH (09:42)
--- NOTE | 2018-12-29 10:19 | P.PN ---
Subjective Date of Service: 12/29/18 Chief Complaint: Respiratory failure Subjective: Improving CARMINE IS DOING BETTER TODAY. HER PH HAS IMPROVED. SHE IS ON NASAL CANULA NOW. SHE WAS ABLE TO AMBULATE 100 FEET OR SO. THE ONLY CHANGES IN LAST 48 HOURS ARE STEROIDS IV TRIAL AND CHANGE OF SETTINGS IN HD TO IMPROVE THE COMPENSATIONS OF RESPIRATORY ACIDOSIS. SHE HAS FELT BETTER LATELY. NO PAIN. WANTS HER SLEEPING PILL DAILY. SHE IS DOING WELL. SHE HAS ANXIETY AND INSOMNIA. SHE IS DOING A LOT BETTER. BREATHING WELL WITH LOW OXYGEN. NO CHEST PAIN, NO DYSPNEA. Review of Systems 10-point ROS is otherwise unremarkable General: Weakness, Malaise Physical Examination - Vital Signs Temperature: 97 F Blood Pressure: 114/57 Pulse: 88 Respirations: 18 Pulse Ox (%): 94 - Physical Exam General: Alert, In no apparent distress, Obese HEENT: Atraumatic, PERRLA, EOMI Neck: Supple, JVD not distended Respiratory: Clear to auscultation bilaterally, Normal air movement Cardiovascular: Regular rate/rhythm, Normal S1 S2 Gastrointestinal: Normal bowel sounds, No tenderness Musculoskeletal: No tenderness Integumentary: No rashes Neurological: Normal speech, Normal tone, Normal affect Lymphatics: No axilla or inguinal lymphadenopathy - Studies Medications List Reviewed: Yes Assessment And Plan - Current Problems (Diagnosis) (1) Septic shock Current Visit: Yes Status: Acute Plan: ON DAY OF ADMISSION SEPSIS WAS THE PICTURE WITH LOW BP , PERIPHERICAL SHOCK, HIGH PROCALCITONIN AND WBC ELEVATION WITHOUT STEROIDS USE. SHE STILL DID NOT SHOW ANY SOURCE OF INFECTION. I SUSPECT SHE MAY HAVE ASHLYN SEPTICEMIA AND I HAVE ASKED [facility] TO HOLD CULTURES FOR FUNGUS. ANYHOW SHE HAS IMPROVED WITH BICARB ADJUSTMENT IN HD. STEROID EFFECT IS UNCLEAR. NO CULTURES YET. CONTINUE DIFLUCAN FOR 14 DAYS TO COMPLETE COURSE. SO FAR NO CULTURES ARE POSITIVE. SHE IMPROVED SOMEHOW AFTER A FEW IMPIRIC THERAPIES- LIKE IV DIFLUCAN AND MANAGED HD WITH RAISED HCO3. I WILL CONTINUE DIFLUCAN FOR AT LEAST 10 DAYS. NO SIGNS OF INFECTION. ALL ABX STOPPED. WILL FU ON CRP, PROCAL AND SED RATE. (2) ESRD (end stage renal disease) on dialysis Current Visit: No Status: Chronic Plan: ON HD CONTINUE. (3) Pickwickian syndrome Current Visit: No Status: Chronic Plan: ABG CHECK LEAVE OXYGEN TO LEAST POSSIBLE. HYERCAPNEA RESPIRATORY FAILURE. PH IS LOW. HD WILL BE ADJUSTED. (4) Pulmonary HTN Onset Date: 11/23/17 Current Visit: No Status: Chronic Plan: NO CHANGES. SHE HAS HAD THIS FOR LONG DURATION. (5) Dyspnea Current Visit: No Status: Acute Plan: SHE HAS SEVERE PULMONARY HTN. NO CHF ON X RAY. INTERSTITIAL CHANGES IN ADDITION TO HYPOTENSION MAY SUGGEST ARDS OR BEGINING OF IT. CONSULT DR. VILLARREAL FOR CRITICAL CARE. SHE IS NOT DNR. SHE LAST ADMISSION CHANGED HER DECISION. PROGNOSIS IS POOR. Qualifiers: Dyspnea type: acute respiratory distress Qualified Code(s): R06.03 - Acute respiratory distress (6) Respiratory failure Current Visit: Yes Status: Acute Plan: PH HAS IMPROVED INTO 7.26 THERE IS A REMOTE POSSIBILTY OF M . GRAVIS BUT STEROID EFFECT IS UNCLEAR. SHE HAS IMPROVED IN 36 HOURS AFTER IV STEROIDS AT THE SAME TIME SHE HAD ADJUSMENT IN HD TO IMPROVE COMPENSATION. ARDS IS LIKELY ON CXR SHE HAS BEEN TREATED WITH ALL SUPPORTIVE THERAPY. Qualifiers: Chronicity: acute on chronic Respiratory failure complication: hypoxia and hypercapnia Qualified Code(s): J96.21 - Acute and chronic respiratory failure with hypoxia; J96.22 - Acute and chronic respiratory failure with hypercapnia (7) Bipolar disorder Current Visit: No Status: Chronic Plan: SHE IS STAYING ANXIOUS. WILL MODIFY MEDS.
--- NOTE | 2018-12-29 13:30 | P.PN ---
Subjective Date of Service: 12/29/18 Chief Complaint: Respiratory failure Subjective: Improving pt with ESRD and SHANNA on nasal BiPAP at home , admitted for hypotension, developed acute resp failure and was intubated now extubated and improving Today no overnight events stable VS participating in PT/OT Bp improving HD MWF Physical Examination - Vital Signs Temperature: 97.6 F Blood Pressure: 129/57 Pulse: 101 Respirations: 18 Pulse Ox (%): 97 - Physical Exam General: In no apparent distress, Oriented x3 Neck: Supple, Without JVD or thyroid abnormality Respiratory: Diminished Cardiovascular: No edema, Normal pulses, Regular rate/rhythm, Normal S1 S2, No gallops, No rubs, No murmurs, Other (Chronic le venouds stasis ) Gastrointestinal: Normal bowel sounds, Soft and benign Musculoskeletal: No swelling - Studies Medications List Reviewed: Yes Assessment And Plan - Current Problems (Diagnosis) (1) Septic shock Current Visit: Yes Status: Acute (2) ESRD (end stage renal disease) on dialysis Current Visit: No Status: Chronic - Plan ESRD on HD TTsat at home via Tunneled cath will do MWF while hospitalzied renal diet renal dose meds Septic Shock possible septic cultures -ve Cont Abx off diflucan pulm HTN on steroids and inhalers Dialysis via tunneled cath, which is the recommended access in pt the modrate to severe pulm HTN as AVF can aggravate it Hypecapneic resp failure hx of Interstitial lung disease on BiPAP at home cont steroids and inhalers Afib with RVR S/P cardioverison on Amiodarone on Eliquis anemia on NOVA transfuse to keep Hb >7.0 MBD Phos improved on Binders Prognosis guarded
[2018-12-29] MEDS: ACETAMINOPHEN 500 MG TAB PO PRN ×2 (13:42→18:25)
--- NOTE | 2018-12-29 15:02 | PN ---
Subjective: Mrs. Plunkett remains in sinus rhythm. I am going to reduce her dose of amiodarone to 200 b.i.d. in a week. We can reduce it to 200 once a day. She may well be an outpatient so that needs t o be given very clearly on outpatient instructions what do with amiodarone. She is on numerous medic ations as multiple medical problems, give her a high long-term dose of amiodarone, particularly more likely to complicate things and help. REAGAN Voice ID: [id number] Report ID: [id number]
[2018-12-29] MEDS: LORATADINE/PSEUDO 12HR TAB PO SCH (21:37)
[2018-12-29] MEDS: ROSUVASTATIN 10 MG TAB PO SCH (21:38)
[2018-12-29] MEDS: PROMETHAZINE 25 MG/ML VIAL IV SCH (21:39)
[2018-12-29] MEDS: ALLOPURINOL 100 MG TAB PO SCH (21:39)
[2018-12-29] MEDS: QUETIAPINE 25 MG TAB PO SCH (21:40)
[2018-12-29] MEDS: ESZOPICLONE 1 MG TAB PO PRN (22:22)
[2018-12-29] MEDS ORDERED: ESZOPICLONE 1 MG TAB ONE ×2 (22:25→22:34)
[2018-12-30] MEDS: IPRATROPIUM BROM 0.5MG/2.5ML NEB SCH ×4 (02:00→20:00)
[2018-12-30] MEDS: LEVOTHYROXINE SOD 0.1 MG TAB PO SCH (05:59)
[2018-12-30 06:40] LABS: Basophils % 0.3 % (0-1.3); Eosinophils % 2.1 % (0-4.4); Hematocrit 25.5 % (36.0-45.0); Lymphocytes % 18.7 % (15.3-44.8); MPV 7.6 fL (7.6-11.3); Monocytes % 8.2 % (3.3-12.3)
[2018-12-30 06:43] LABS: Potassium 3.4 mmol/L (3.5-5.1)
[2018-12-30] MEDS: OLOPATADINE HCL NS SCH ×2 (09:00→20:54)
[2018-12-30] MEDS: CYCLOSPORINE EACH EYE SCH ×2 (09:00→20:53)
[2018-12-30] MEDS: DIVALPROEX DR 500MG TAB PO SCH ×2 (09:01→20:52)
[2018-12-30] MEDS: ADCIRCA 20 MG PO SCH (09:02)
[2018-12-30] MEDS: CA ACETATE 667 MG CAP PO SCH ×3 (09:03→17:07)
[2018-12-30] MEDS: BUSPIRONE HCL 5 MG TABLET PO SCH ×2 (09:03→20:52)
[2018-12-30] MEDS: APIXABAN 2.5 MG TABLET PO SCH ×2 (09:04→20:53)
[2018-12-30] MEDS: FAMOTIDINE 20 MG TAB PO SCH ×2 (09:04→20:52)
[2018-12-30] MEDS: LACTOBACILLUS/ACIDOPHILUS TAB PO SCH (09:04)
[2018-12-30] MEDS: THIAMINE HCL 100 MG TABLET PO SCH (09:04)
[2018-12-30] MEDS: AMIODARONE HCL 200 MG TAB PO SCH ×2 (09:05→20:53)
[2018-12-30] MEDS: ACETAMINOPHEN 500 MG TAB PO PRN ×2 (10:26→21:47)
--- NOTE | 2018-12-30 13:40 | P.PN ---
Subjective Date of Service: 12/30/18 Chief Complaint: LOT BETTER. Subjective: Improving CARMINE IS DOING BETTER TODAY. HER PH HAS IMPROVED. SHE IS ON NASAL CANULA NOW. SHE WAS ABLE TO AMBULATE 100 FEET OR SO. THE ONLY CHANGES IN LAST 48 HOURS ARE STEROIDS IV TRIAL AND CHANGE OF SETTINGS IN HD TO IMPROVE THE COMPENSATIONS OF RESPIRATORY ACIDOSIS. SHE HAS FELT BETTER LATELY. NO PAIN. WANTS HER SLEEPING PILL DAILY. SHE IS DOING WELL. SHE HAS ANXIETY AND INSOMNIA. SHE IS DOING A LOT BETTER. BREATHING WELL WITH LOW OXYGEN. NO CHEST PAIN, NO DYSPNEA. CARMINE HAS NO NEW COMPLAINTS. SHE HAS FEMORAL CATH THAT WILL COME OUT TODAY. Review of Systems 10-point ROS is otherwise unremarkable General: Weakness, Malaise Physical Examination - Vital Signs Temperature: 97.2 F Blood Pressure: 108/57 Pulse: 101 Respirations: 19 Pulse Ox (%): 97 - Physical Exam General: Alert, Mild distress, Obese HEENT: Atraumatic, PERRLA, EOMI Neck: Supple, JVD not distended Respiratory: Clear to auscultation bilaterally, Normal air movement Cardiovascular: Regular rate/rhythm, Normal S1 S2 Gastrointestinal: Normal bowel sounds, No tenderness Musculoskeletal: No tenderness Integumentary: No rashes Neurological: Normal speech, Normal tone, Normal affect Lymphatics: No axilla or inguinal lymphadenopathy - Studies Medications List Reviewed: Yes Assessment And Plan - Current Problems (Diagnosis) (1) Septic shock Current Visit: Yes Status: Acute Plan: ON DAY OF ADMISSION SEPSIS WAS THE PICTURE WITH LOW BP , PERIPHERICAL SHOCK, HIGH PROCALCITONIN AND WBC ELEVATION WITHOUT STEROIDS USE. SHE STILL DID NOT SHOW ANY SOURCE OF INFECTION. I SUSPECT SHE MAY HAVE ASHLYN SEPTICEMIA AND I HAVE ASKED [facility] TO HOLD CULTURES FOR FUNGUS. ANYHOW SHE HAS IMPROVED WITH BICARB ADJUSTMENT IN HD. STEROID EFFECT IS UNCLEAR. NO CULTURES YET. CONTINUE DIFLUCAN FOR 14 DAYS TO COMPLETE COURSE. SO FAR NO CULTURES ARE POSITIVE. SHE IMPROVED SOMEHOW AFTER A FEW IMPIRIC THERAPIES- LIKE IV DIFLUCAN AND MANAGED HD WITH RAISED HCO3. I WILL CONTINUE DIFLUCAN FOR AT LEAST 10 DAYS. NO SIGNS OF INFECTION. ALL ABX STOPPED. WILL FU ON CRP, PROCAL AND SED RATE. FU PROCA, CRP FU. (2) ESRD (end stage renal disease) on dialysis Current Visit: No Status: Chronic Plan: ON HD CONTINUE. (3) Pickwickian syndrome Current Visit: No Status: Chronic Plan: ABG CHECK LEAVE OXYGEN TO LEAST POSSIBLE. HYERCAPNEA RESPIRATORY FAILURE. PH IS LOW. HD WILL BE ADJUSTED. (4) Pulmonary HTN Onset Date: 11/23/17 Current Visit: No Status: Chronic Plan: NO CHANGES. SHE HAS HAD THIS FOR LONG DURATION. (5) Dyspnea Current Visit: No Status: Acute Plan: SHE HAS SEVERE PULMONARY HTN. NO CHF ON X RAY. INTERSTITIAL CHANGES IN ADDITION TO HYPOTENSION MAY SUGGEST ARDS OR BEGINING OF IT. CONSULT DR. VILLARREAL FOR CRITICAL CARE. SHE IS NOT DNR. SHE LAST ADMISSION CHANGED HER DECISION. PROGNOSIS IS POOR. Qualifiers: Dyspnea type: acute respiratory distress Qualified Code(s): R06.03 - Acute respiratory distress (6) Respiratory failure Current Visit: Yes Status: Acute Plan: PH HAS IMPROVED INTO 7.26 THERE IS A REMOTE POSSIBILTY OF M . GRAVIS BUT STEROID EFFECT IS UNCLEAR. SHE HAS IMPROVED IN 36 HOURS AFTER IV STEROIDS AT THE SAME TIME SHE HAD ADJUSMENT IN HD TO IMPROVE COMPENSATION. ARDS IS LIKELY ON CXR SHE HAS BEEN TREATED WITH ALL SUPPORTIVE THERAPY. Qualifiers: Chronicity: acute on chronic Respiratory failure complication: hypoxia and hypercapnia Qualified Code(s): J96.21 - Acute and chronic respiratory failure with hypoxia; J96.22 - Acute and chronic respiratory failure with hypercapnia (7) Bipolar disorder Current Visit: No Status: Chronic Plan: SHE IS STAYING ANXIOUS. WILL MODIFY MEDS.
--- NOTE | 2018-12-30 14:19 | P.PN ---
Subjective Date of Service: 12/30/18 Chief Complaint: LOT BETTER. Subjective: Improving pt with ESRD and SHANNA on nasal BiPAP at home , admitted for hypotension, developed acute resp failure and was intubated now extubated and improving Today no overnight events stable VS participating in PT/OT HD MWF possible discharge next week if cont to be stable Physical Examination - Vital Signs Temperature: 97.2 F Blood Pressure: 108/57 Pulse: 101 Respirations: 19 Pulse Ox (%): 97 - Physical Exam General: In no apparent distress, Oriented x3 HEENT: Atraumatic Neck: Supple, Without JVD or thyroid abnormality Respiratory: Diminished Cardiovascular: Normal pulses, Regular rate/rhythm, No rubs, No murmurs, Other ( trace edema with chronic venous changes ), Edema - Studies Medications List Reviewed: Yes Assessment And Plan - Current Problems (Diagnosis) (1) Septic shock Current Visit: Yes Status: Acute (2) ESRD (end stage renal disease) on dialysis Current Visit: No Status: Chronic - Plan ESRD on HD TTsat at home via Tunneled cath will do MWF while hospitalzied renal diet renal dose meds Septic Shock cultures -ve Cont Abx off diflucan pulm HTN on steroids and inhalers Dialysis via tunneled cath, which is the recommended access in pt the modrate to severe pulm HTN as AVF can aggravate it Hypecapneic resp failure hx of Interstitial lung disease on BiPAP at home Lor inhalers and BiPAP Afib with RVR S/P cardioverison on Amiodarone on Eliquis anemia on NOVA transfuse to keep Hb >7.0 MBD Phos improved on Binders Prognosis guarded
[2018-12-30] MEDS: ROSUVASTATIN 10 MG TAB PO SCH (20:51)
[2018-12-30] MEDS: PROMETHAZINE 25 MG/ML VIAL IV SCH (20:52)
[2018-12-30] MEDS: QUETIAPINE 25 MG TAB PO SCH (20:53)
[2018-12-30] MEDS: LORATADINE/PSEUDO 12HR TAB PO SCH (20:53)
[2018-12-30] MEDS: ALLOPURINOL 100 MG TAB PO SCH (20:53)
--- NOTE | 2018-12-31 00:33 | PN ---
Date of Progress Note: 12/30/2018 Subjective: Ms. Plunkett had been in the hospital for few days because of severe pulmonary h ypertension, respiratory failure. Echocardiogram showed normal ejection fraction and decreased left ventricular compliance with severe pulmonary hypertension. There is talk about restarting her on Adc irca. From a heart rhythm standpoint, she had gone into atrial fibrillation when she came in, was lo aded with IV amiodarone IV and then p.o. . She remained in sinus rhythm. Respi ratory garcia, she has improved. The plan is for senior care facility. We will continue to follow her as needed. BINA Voice ID: [id number] Report ID: [id number]
[2018-12-31] MEDS: IPRATROPIUM BROM 0.5MG/2.5ML NEB SCH ×3 (01:54→14:00)
[2018-12-31 06:11] LABS: Absolute Lymphocytes (CBC) 0.9 K/uL (0.7-4.9); Basophils % 0.4 % (0-1.3); Eosinophils % 2.1 % (0-4.4); Lymphocytes % 17.1 % (15.3-44.8); MPV 7.5 fL (7.6-11.3); Monocytes % 6.9 % (3.3-12.3); RBC Red Blood Cell Count 2.73 M/uL (3.86-4.86)
[2018-12-31] MEDS: LEVOTHYROXINE SOD 0.1 MG TAB PO SCH (06:15)
[2018-12-31 06:21] LABS: Potassium 3.6 mmol/L (3.5-5.1)
[2018-12-31] MEDS: OLOPATADINE HCL NS SCH (09:00)
[2018-12-31] MEDS: CYCLOSPORINE EACH EYE SCH (09:07)
[2018-12-31] MEDS: LACTOBACILLUS/ACIDOPHILUS TAB PO SCH (09:08)
[2018-12-31] MEDS: BUSPIRONE HCL 5 MG TABLET PO SCH (09:08)
[2018-12-31] MEDS: THIAMINE HCL 100 MG TABLET PO SCH (09:08)
[2018-12-31] MEDS: AMIODARONE HCL 200 MG TAB PO SCH (09:08)
[2018-12-31] MEDS: DIVALPROEX DR 500MG TAB PO SCH (09:08)
[2018-12-31] MEDS: CA ACETATE 667 MG CAP PO SCH ×3 (09:09→16:42)
[2018-12-31] MEDS: FAMOTIDINE 20 MG TAB PO SCH (09:09)
[2018-12-31] MEDS: APIXABAN 2.5 MG TABLET PO SCH (09:10)
[2018-12-31] MEDS: ADCIRCA 20 MG PO SCH (09:11)
[2018-12-31] MEDS ORDERED: ESZOPICLONE 2 MG PO PRN (09:17)
[2018-12-31] MEDS: ACETAMINOPHEN 500 MG TAB PO PRN (15:25)
--- NOTE | 2018-12-31 21:24 | P.DS ---
Admission Date: 12/17/18 Discharge Date: 12/31/18 Disposition: DC HOME/HOME HEALTH CARE Discharge Condition: FAIR Reason for Admission: LOT BETTER. - Problems (1) Septic shock Status: Acute (2) ESRD (end stage renal disease) on dialysis Status: Chronic (3) Pickwickian syndrome Status: Chronic (4) Pulmonary HTN Onset Date: 11/23/17 Status: Chronic (5) Dyspnea Status: Acute Qualifiers: Dyspnea type: acute respiratory distress Qualified Code(s): R06.03 - Acute respiratory distress (6) Respiratory failure Status: Acute Qualifiers: Chronicity: acute on chronic Respiratory failure complication: hypoxia and hypercapnia Qualified Code(s): J96.21 - Acute and chronic respiratory failure with hypoxia; J96.22 - Acute and chronic respiratory failure with hypercapnia (7) Bipolar disorder Status: Chronic Brief History of Present Illness: MS. DELACRUZ IS A ESRD PATIENT ON HEMODIALYSIS JUST CAME OUT OF [place] AFTER BEING IN FOR SEPSIS, OBTUNDATION, HYPERCAPNEA, WAS GOOD FORA WEEK AND THEN GOT WORSE AGAIN WITH WEAKNESS, DYSPNEA, FATIGUE AND CLAMMINESS. I SAW HER IN ER. I FOUND HER TO BE SEPTC AND ASKED THE PA TAKING CARE OF TO GET HER ON VANCOMYCIN AND MERREM QUICKLY. HE ALREADY HAS DONE BC-2 AND UA UCS. CARMINE IS DOING A LOT BETTER. SHEIS ABLE TO EAT, TALK, WALK ,BREATH WELL. SHE SAYS THE BREATHING TREATMENTS ARE MAKING HER MORE SHORT OF BREATH SO I STOPPED THEM SHE HAS NO CODP OR ASTHMA. HER BREATHING ISSUES COME FROM PULMONARY HTN AND OBESITY HYPOTENTILATON SYNDROME INDUCED HYPERCAPNEA. SHE IS STABLE FOR LAST FEW DAYS TO BE HOME WITH HOME HEALTH. I SAW THAT HER SED RATE AND CRP ALSO ARE DECLINING. WITH ANY MORE SEPSIS LIKE EPISODES HER CATHETER WILL NEED TO COME OUT. I HAVE DISCUSSED THIS WITH BOTH RENAL MDS. NONE OF HER CULTURES GREW ANY BACTERIA OR FUNGUS. HER BETA GLUCAN LEVEL WAS GOOD ALSO. HER SYMPTOMS ON ADMISSION WERE OF SEPSIS BUT THAT NEVER PANNED OUT. SHE ALSO HAD A FIB WITH RVR FOR THAT SHE NOW IS ON AMIODARONE AND ELIQUIS. SHE WILL CONTINUE HD WITH HER RENAL DOCTORS. Vital Signs/Physical Exam: Temp Pulse Resp BP Pulse Ox 97.8 F 108 H 18 118/56 L 100 12/31/18 16:00 12/31/18 16:00 12/31/18 16:00 12/31/18 16:00 12/31/18 16:00 Laboratory Data at Discharge: WBC 5.3 K/uL (4.3-10.9) 12/31/18 05:17 Hgb 8.3 g/dL (12.0-15.0) L 12/31/18 05:17 Hct 26.0 % (36.0-45.0) L 12/31/18 05:17 Plt Count 122 K/uL (152-406) L 12/31/18 05:17 PT 14.0 SECONDS (9.5-12.5) H 12/17/18 16:40 INR 1.19 12/17/18 16:40 APTT 29.4 SECONDS (24.3-36.9) 12/20/18 05:30 Sodium 144 mmol/L (136-145) 12/31/18 05:17 Potassium 3.6 mmol/L (3.5-5.1) 12/31/18 05:17 BUN 63 mg/dL (7-18) H 12/31/18 05:17 Creatinine 4.95 mg/dL (0.55-1.3) H 12/31/18 05:17 Glucose 85 mg/dL (74-106) 12/31/18 05:17 Phosphorus 5.3 mg/dL (2.5-4.9) H 12/26/18 05:00 Magnesium 2.3 mg/dL (1.8-2.4) 12/26/18 05:00 Total Bilirubin 0.2 mg/dL (0.2-1.0) 12/26/18 05:00 AST 14 U/L (15-37) L 12/26/18 05:00 ALT 10 U/L (12-78) L 12/26/18 05:00 Alkaline Phosphatase 94 U/L (45-117) 12/26/18 05:00 Home Medications: Allopurinol [Zyloprim*] 100 mg PO BEDTIME 09/03/18 Ascorbic Acid [Vitamin C] 500 mg PO DAILY 09/03/18 Aspirin [Aspir-Low] 81 mg PO DAILY 09/03/18 Calcium Carbonate [Calcium] 1 tab PO DAILY 09/03/18 Cholecalciferol (Vitamin D3) [Vitamin D3] 2,000 unit PO DAILY 09/03/18 Cyclosporine [Restasis] 1 drop EACH EYE BID 09/03/18 Divalproex Sodium [Depakote] 1,000 mg PO BEDTIME 09/03/18 Divalproex Sodium [Depakote] 500 mg PO DAILY 09/03/18 Esomeprazole Mag Trihydrate [Nexium] 40 mg PO DAILY 09/03/18 Icosapent Ethyl [Vascepa] 2 cap PO BID 09/03/18 Levothyroxine Sodium 100 mcg PO DAILY 09/03/18 Loratadine [Claritin*] 10 mg PO BEDTIME 09/03/18 Multivitamin [Multivitamins] 1 each PO BEDTIME 09/03/18 Olopatadine HCl [Patanase] 2 spray NS BID 09/03/18 Rosuvastatin Calcium [Crestor] 40 mg PO BEDTIME 09/03/18 Tolterodine Tartrate [Detrol LA*] 4 mg PO BEDTIME 09/03/18 Tramadol HCl [Ultram] 50 mg PO PRN PRN 09/03/18 Eszopiclone [Lunesta] 3 mg PO BEDTIME 12/17/18 Methocarbamol [Robaxin] 750 mg PO PRN PRN 12/17/18 Midodrine HCl [Proamatine*] 5 mg PO PRN PRN 12/17/18 Nebivolol HCl [Bystolic*] 5 mg PO DAILY 12/17/18 Nexiabiotic 1 cap PO DAILY 12/17/18 Sinupro 2 cap PO DAILY 12/17/18 Amiodarone HCl [Cordarone*] 200 mg PO BID tab 12/31/18 Amiodarone HCl [Cordarone*] 200 mg PO BID #60 tab 12/31/18 Apixaban [Eliquis *] 2.5 mg PO BID #180 tablet 12/31/18 Buspirone HCl [Buspar*] 5 mg PO BID #180 tab 12/31/18 New Medications: Amiodarone HCl [Cordarone*] 200 mg PO BID #60 tab Apixaban [Eliquis *] 2.5 mg PO BID #180 tablet Buspirone HCl [Buspar*] 5 mg PO BID #180 tab Followup: Michael Villegas MD [Primary Care Provider] -
--- NOTE | 2019-01-01 03:52 | PN ---
Date of Progress Note: 12/31/2018 Chief Complaint: End-stage renal disease, congestive heart failure with diastolic dysfunction, sever e COPD exacerbation. The patient is undergoing dialysis today to obtain metabolic clearance and ultrafiltration. The alessandra ent is tolerating ultrafiltration. Blood pressure remained stable during dialysis. Review of Systems: Denies fever, chills. Physical Examination: Lungs: Few rhonchi. Heart: S1, S2. Abdomen: Soft, benign, nontender. Extremities: Edema present in both legs. Impression And Plan: 1.Septic shock. Blood pressure is stable. The patient is hemodynamically stable. Continue antibio tics. The patient is off pressors. 2.End-stage renal disease. Continue dialysis Monday, Monday, and Monday. The patient may requir e extra treatment for volume overload to control hypervolemia. 3.Septic shock. Cultures as needed. Continue antibiotics. The patient is off Diflucan. 4.Pulmonary hypertension. The patient is on steroids and inhalers. 5.Hypercapnic respiratory failure. The patient is on BiPAP. 6.Atrial fibrillation status post cardioversion on amiodarone and Eliquis, management per Cardiology . 7.Anemia of chronic kidney disease. Blood transfusion with packed red blood cells if hemoglobin is below 8. Monitor hemoglobin level. Adjust NOVA. BHARTI/MODMirlande Voice ID: [id number] Report ID: [id number]
[2019-01-02 14:25] VITALS: BP 118/56; TEMP 97.8
[2019-01-02 14:41] VITALS: BMI 32.1
[2019-01-02 14:58] VITALS: O2SAT 98
== END 2018-12-31 18:35 | disposition home health service (06) | DRG 871 ==
LOC: ER 13:50 → ERHOLD 18:21 → 3RD-ICU 19:23 → 2ND 12-27 11:02 → 4TH 12-27 20:50
PROVIDERS: ADMIT Internal Medicine; ATTEND Internal Medicine
PROC: 06HM33Z Insertion of Infusion Device into Right Femoral Vein, Percutaneous Approach (ICD-10-PCS; principal; 2018-12-17)
PROC: 5A1D70Z Performance of Urinary Filtration, Intermittent, Less than 6 Hours Per Day (ICD-10-PCS; 2018-12-18)
PROC: 0BH17EZ Insertion of Endotracheal Airway into Trachea, Via Natural or Artificial Opening (ICD-10-PCS; 2018-12-19)
PROC: 5A1945Z Respiratory Ventilation, 24-96 Consecutive Hours (ICD-10-PCS; 2018-12-19)
PROC: 30233N1 Transfusion of Nonautologous Red Blood Cells into Peripheral Vein, Percutaneous Approach (ICD-10-PCS; 2018-12-26)
DX: A41.9 Sepsis, unspecified organism (principal); R65.21 Severe sepsis with septic shock; N18.6 End stage renal disease; J96.22 Acute and chronic respiratory failure with hypercapnia; J96.21 Acute and chronic respiratory failure with hypoxia; I12.0 Hypertensive chronic kidney disease with stage 5 chronic kidney disease or end stage renal disease; E66.2 Morbid (severe) obesity with alveolar hypoventilation; E87.2 Acidosis; I48.91 Unspecified atrial fibrillation; Z99.2 Dependence on renal dialysis; I27.20 Pulmonary hypertension, unspecified; D63.1 Anemia in chronic kidney disease; Z66 Do not resuscitate; K58.9 Irritable bowel syndrome, unspecified; K21.9 Gastro-esophageal reflux disease without esophagitis; E03.9 Hypothyroidism, unspecified; E78.5 Hyperlipidemia, unspecified; F31.9 Bipolar disorder, unspecified; F41.9 Anxiety disorder, unspecified; Z68.32 Body mass index [BMI] 32.0-32.9, adult; Z79.82 Long term (current) use of aspirin; Z86.718 Personal history of other venous thrombosis and embolism; Z90.49 Acquired absence of other specified parts of digestive tract; Z88.5 Allergy status to narcotic agent
CPT/HCPCS: 36415; 71045; 80048; 80053; 80069; 80202; 81001; 82533; 82607; 82728; 82746; 82805; 82962; 83540; 83605; 83735; 83880; 84100; 84145; 84238; 84466; 84484; 85014; 85018; 85025; 85610; 85652; 85730; 86140; 86317; 86704; 86706; 86850; 86900; 86901; 86922; 87040; 87086; 87088; 87340; 90935; 93005; 94002; 94640; 94660; 94760; 96361; 96365; 96375; 97116; 97163; 97530; 99285; J0282; J1450; J1630; J1644; J1720; J2185; J2550; J2704; J3010; J3370; J7030; J7060; P9016; P9047; Q4081

== ENCOUNTER 2019-01-08 11:52 | Emergency (ER) | payer OTHER ==
[2019-01-08] MEDS ORDERED: Caclcium Chloride 10% INJ SYR IV ONE (11:53)
[2019-01-08] MEDS ORDERED: EPINEPHrine 1 MG/10 ML SYR IV ONE (11:53)
--- OUTSIDE RECORDS SUMMARY | 2019-01-08 11:57 | XMS REPORT | Clinical Summary ---
:1960 Author Organization [facility] Address [address] [place] [address] Care Team Providers Name Role Phone Asked, [...] tablet clonAZEPAM Take 0.5 mg by 0 20 Discontinued (KlonoPIN) 0.5 MG mouth nightly. 19 tablet traMADol (ULTRAM) Take 50 mg by 0 10/31/19 Discontinued 50 mg tablet mouth every 6 19 (six) hours as needed for moderate pain. 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 Device Shelf Model / Identifier Expiration Serial / Date Lot Set Cathztn Hmodial Lngtrm Accs 15fr 28cm Edge Simplicity - [id number] Central N/A: N/A ARROW 04/01/2021 CS [id number] IM / Implanted: 10/25/2018 (Quantity not on file) Venous INTERNATIONAL / Catheters INC [id number] Clip Ligtng [place] Hemoclip Plus W/ Tape Ti Med Lg - [id number] Medical N/A: N/ A WECK CLOSURE 04/18/2022 [id number] / Implanted: Qty: 1 on 11/28/2017 by Berhane Roa MD Clips for SYSTEMS / Internal Use Clip Ligtng Weck Hemoclip Plus W/ Tape Ti Med - [id number] Medical N/A: N/A TELEFLEX MEDICAL 04/18/2022 [id number] / Implanted: Qty: 1 on 11/28/2017 by Berhane Roa MD Clips for / Internal Use Clip Ligtng Weck Hemoclip Plus W/ Tape Ti Lg - [id number] Medical N/A: N/A TELEFLEX MEDICAL 04/18/2022 [id number] / Implanted: Qty: 1 on 11/28/2017 by Berhane Roa MD Clips for / Internal Use Mesh Hrnia Rpr Sepramesh 8x12in Rectngl Cmpst Ppe Ventrl - [id number] Surgical N/A: DAVOL INC 07/30/2018 [id number] / Implanted: 11/28/2017 (Quantity not on file) Mesh or Abdomen, / Tissue Middle [id number] Barrier Quadrant/No Products n Specific Procedures Procedure [...] are in SPECTRAL COLOR DOPPLER the results (93767) section. HEPATITIS B SURFACE STAT 10/06/2018 2:30 [...] Routine 03/07/2018 5:51 CELLS PM CDT after 01/07/2018 Results Estimated GFR (10/27/2018 8:25 AM CDT)Only the most recent of15 resultswithin the time period is included. [facility] Estimated GFR 11 (A) mL/min/1.73 [facility] Comment: HOSPITAL CatergoryUnitsInterpretation G1 >=90 Normal or high G2 60-89Mildly decreased A7y31-07Eyfwpg to moderately decreased S5j60-68Pozdpxwtaa to severely decreased G4 15-29Severely decreased G5 <15Kidney failure The eGFR was calculated using the Chronic Kidney Disease Epidemiology Collaboration (CKD-EPI) equation. Interpretation is based on recommendations of the National Kidney Foundation-Kidney Disease Outcomes Quality Initiative (NKF-KDOQI) published in 2014. Specimen Plasma specimen Performing Organization Address City/State/Zipcode Phone Number [facility] DEPARTMENT OF PATHOLOGY AND [address] [place] [address] GENOMIC MED[address] [address] CBC with platelet and differential (10/27/2018 8:25 AM CDT)Only the most recent of11 resultswithin the time period is included. [facility] WBC 3.85 (L) 4.50 - 11.00 [facility] k/uL HOSPITAL RBC 3.06 (L) 4.20 - 5.50 [facility] m/uL HOSPITAL HGB 9.3 (L) 12.0 - 16.0 [facility] g/dL HOSPITAL HCT 31.7 (L) 37.0 - 47.0 % [facility] MCV 103.6 (H) 82.0 - 100.0 [facility] MCH 30.4 27.0 - 34.0 pg [facility] MCHC 29.3 (L) 31.0 - 37.0 [facility] g/dL [facility] RDW - SD 63.9 (H) 37.0 - 55.0 fL [facility] MPV 9.8 8.8 - 13.2 fL [facility] Platelet count 168 150 - 400 k/uL [facility] Nucleated RBC 0.80 /100 WBC [facility] Neutrophils 55.6 39.0 - 69.0 % [facility] Lymphocytes 27.8 25.0 - 45.0 % [facility] Monocytes 13.0 (H) 0.0 - 10.0 % [facility] Eosinophils 2.3 0.0 - 5.0 % [facility] Basophils 0.5 0.0 - 1.0 % [facility] Immature granulocytes 0.8Comment: 0.0 - 1.0 % [facility] "Immature [facility] granulocytes" (promyelocytes , myelocytes, metamyelocytes ) Specimen Blood Performing Organization Address City/State/Zipcode Phone Number [facility] DEPARTMENT OF PATHOLOGY AND [address] [place] [address] GENOMIC MEDICINE [address] [address] Basic metabolic panel (10/27/2018 8:25 AM CDT)Only the most recent of14 resultswithin the time period is included. [facility] Sodium 148 135 - 148 mEq/L [facility] Potassium 4.1 3.5 - 5.0 mEq/L [facility] Chloride 104 98 - 112 mEq/L [facility] CO2 25 24 - 31 mEq/L [facility] Anion gap 19@ANIO (H) 7 - 15 mEq/L [facility] BUN 48 (H) 8 - 23 mg/dL [facility] Creatinine 4.25 (H) 0.50 - 0.90 mg/dL [facility] Glucose 106 (H) 65 - 99 mg/dL [facility] Calcium 9.2 8.8 - 10.2 mg/dL [facility] Specimen Plasma specimen Performing Organization Address City/[facility] Phone Number [facility] DEPARTMENT OF PATHOLOGY AND [address] [place] [address] GENOMIC MEDICINE [facility] [address] [place] [address] IR Non-Tunneled Central Line Removal (10/25/2018 3:34 [...] catheter. Blood Loss: Less than 1 mL [facility]-[id number] Procedure Note [facility], Radiology Results Incoming - 10/25/2018 3:48 PM [...] catheter. Blood Loss: Less than 1 mL [facility]-[id number] Performing Organization Address City/[facility]/Zipcode Phone Number [facility] [address] [place] [address] IR Tunneled Dialysis Catheter Placement (10/25/2018 3:34 [...] end of the procedure for further monitoring. Rume-lx-jxpc time 21 minutes Anesthesia: Local Radiation dose: [...] was brought through the tunnel. A 5 Hungarian catheter was placed over the initially placed [...] cava. Blood Loss: Less than 1 mL [facility]-[id number] Procedure Note [facility], Radiology Results Incoming - 10/25/2018 3:47 PM CDT Procedure: Placement of tunneled dialysis catheter Clinical History: End-stage renal disease Sedation: Versed and fentanyl were utilized for monitored conscious sedation during the procedure. The patient was transferred to the recovery room at the end of the procedure for further monitoring. Ronz-ic-sdsv time 21 minutes Anesthesia: Local Radiation dose: [...] was brought through the tunnel. A 5 Hungarian catheter was placed over the initially placed [...] cava. Blood Loss: Less than 1 mL [facility]-[id number] Performing Organization Address [facility] [place] [address] Transfuse RBC (10/22/2018 10:33 PM CDT)Only the most recent of7 resultswithin the time period is included.Smear review (10/22/2018 5:00 AM CDT)Only the most recent of2 resultswithin the time period is included. Platelet slide review Mary Ellen adequate [facility] Anisocytosis Moderate [facility] Polychromasia Moderate [facility] Ovalocytes Moderate [facility] Specimen Performing Organization Address [facility] Phone Number [facility] DEPARTMENT OF PATHOLOGY AND [address] [place] [address] GENOMIC MEDICINE [address] [address] Prepare RBC, 2 Units (10/22/2018 5:00 AM CDT) Product name Red Blood Cells [facility], [facility] Unit number [id number] [facility] Product code [id number] [facility] Dispense status Transfused [facility] Blood expiration [facility] Blood type code 7300 [facility] Blood type B POSITIVE [facility] Product name Red Blood Cells [place] [id number], [facility] Unit number [id number] [facility] Product code [id number] [facility] Dispense status Transfused [facility] Blood expiration [id number] [facility] Blood type code 7300 [facility] Blood type B POSITIVE [facility] Specimen Blood Performing Organization Address [facility] Phone Number [facility] DEPARTMENT OF PATHOLOGY AND [address] [place] [phone] Type and screen (10/22/2018 5:00 AM CDT) ABO grouping B [facility] Rh type POS [facility] Antibody screen (gel) NEG [facility] Specimen Blood Performing Organization Address [facility] Phone Number [facility] DEPARTMENT OF PATHOLOGY AND [address] [place] [address] Blood culture, aerobic & anaerobic (10/17/2018 7:40 AM CDT)Only the most recent of6 resultswithin the time period is included. [facility] Blood culture No growth after 5 days of incubation. [facility] isolate Comment: HOSPITAL Specimen Information Specimen Source: Blood Specimen Site: Hand Left Specimen Blood Performing Organization Address [facility] Phone Number [facility] DEPARTMENT OF PATHOLOGY AND [address] [place] [address] Magnesium level (10/17/2018 3:30 AM CDT)Only the most recent of2 resultswithin the time period is included. [facility] Magnesium 1.9 1.6 - 2.4 mg/dL [facility] Specimen Plasma specimen Performing Organization Address [facility] Phone Number [facility] DEPARTMENT OF PATHOLOGY AND [address] [place] [address] POC glucose (10/16/2018 8:37 PM CDT)Only the most recent of7 resultswithin the time period is included. [facility] POC glucose 160 (H) 65 - 99 mg/dL [facility] Comment: HOSPITAL [facility] Notified RN Meter ID: [id number] Company Accountant: Rylan Ronuel Specimen Performing Organization Address [facility] Phone Number [facility] DEPARTMENT OF PATHOLOGY AND [address] [place] [address] GENOMIC MEDICINE [facility] [address] [place] [address] IR Tunneled Dialysis Catheter Removal (10/16/2018 5:43 PM CDT) Specimen Narrative Performed At EXAMINATION:IR TUNNELED DIALYSIS CATHETER REMOVAL HM [facility] CLINICAL HISTORY:ESRD ON DIALYSIS, remove dialysis [...] (mL): Less than 10 Standardized report: [email or web address] [facility]-[id number] Procedure Note Hm Interface, Radiology Results Incoming [...] (mL): Less than 10 Standardized report: [email or web address] [facility]-[id number] Performing Organization Address City/[facility]/Zipcode Phone Number [facility] [address] [place] [phone] CBC hemogram (10/16/2018 10:00 AM CDT) [facility] WBC 3.99 (L) 4.50 - 11.00 k/uL [facility] RBC 2.25 (L) 4.20 - 5.50 m/uL [facility] HGB 7.1 (L) 12.0 - 16.0 g/dL [facility] HCT 23.3 (L) 37.0 - 47.0 % [facility] MCV 103.6 (H) 82.0 - 100.0 fL [facility] MCH 31.6 27.0 - 34.0 pg [facility] MCHC 30.5 (L) 31.0 - 37.0 g/dL [facility] RDW - SD 55.3 (H) 37.0 - 55.0 fL [facility] MPV 9.1 8.8 - 13.2 fL [facility] Platelet count 129 (L) 150 - 400 k/uL [facility] Nucleated RBC 0.00 /100 WBC [facility] Specimen Performing Organization Address City/[facility] Phone Number [facility] DEPARTMENT OF PATHOLOGY AND [address] [place] [address] Phosphorus level (10/16/2018 5:10 AM CDT) [facility] Phosphorus 2.6 2.4 - 4.5 mg/dL [facility] Specimen Plasma specimen Performing Organization Address City/[facility]/Zipcode Phone Number [facility] DEPARTMENT OF PATHOLOGY AND [address] [place] [phone] [place] [phone] Arterial blood gas (10/15/2018 10:38 PM CDT)Only the most recent of6 resultswithin the time period is included. [facility] pH, arterial 7.43 7.35 - 7.45 [facility] pCO2, arterial 42 35 - 45 mmHg [facility] pO2, arterial 154 (H) 80 - 90 mmHg [facility] Bicarbonate, 27.0 21.0 - 28.0 [facility] arterial mmol/L HOSPITAL Base excess, 3 (H) -2 - 2 mEq/L [facility] O2 saturation, 100 95 - 100 % [facility] Specimen Blood Performing Organization Address City/[facility]/Zipcode Phone Number [facility] DEPARTMENT OF PATHOLOGY AND [address] [place] [address] [address] Vancomycin level, random (10/15/2018 4:41 AM CDT)Only the most recent of2 resultswithin the time period is included. Vancomycin, random 21.1 ug/mL [facility] Specimen Serum Performing Organization Address [facility] Phone Number [facility] DEPARTMENT OF PATHOLOGY AND [address] [place] [address] [address] XR Chest 1 Vw Portable (10/14/2018 8:28 AM CDT)Only the most recent of4 resultswithin the time period is included. Specimen Narrative Performed At EXAMINATION:XR CHEST 1 VW PORTABLE [facility] CLINICAL HISTORY:Dyspnea COMPARISON:10 October 2018 IMPRESSION: Left IJ catheter remains in position.There is continuing cardiomegaly mediastinal widening.Bilateral perihilar infiltrate is more extensive on the left where there is also pleural effusion. [facility]-[id number] Procedure Note Hm Interface, Radiology Results Incoming - 10/14/2018 8:52 AM CDT EXAMINATION: XR CHEST 1 VW PORTABLE CLINICAL HISTORY: Dyspnea COMPARISON: 10 October 2018 IMPRESSION: Left IJ catheter remains in position. There is continuing cardiomegaly mediastinal widening. Bilateral perihilar infiltrate is more extensive on the left where there is also pleural effusion. [facility]-[id number] Performing Organization Address City/[facility] Phone Number [facility] [address] [place] [address] Lactic acid level, SEPSIS - Now and repeat 2x every 3 hours (10/14/2018 5:10 AM CDT)Only the most recent of2 resultswithin the time period is included. Lactic acid 0.7 0.5 - 2.2 mmol/L [facility] Specimen Plasma specimen Performing Organization Address City/State/Zipcode Phone Number [facility] DEPARTMENT OF PATHOLOGY AND [address] [place] [address] [address] XR Forearm 2 Vw Right (10/11/2018 2:01 PM CDT) Specimen Narrative Performed At EXAMINATION:XR FOREARM 2 VW RIGHT [facility] CLINICAL HISTORY:fall wtih persistent pain R forearm COMPARISON:none. IMPRESSION: 1.No displaced fractures or dislocations. [facility]-[id number] Procedure Note Hm Interface, Radiology Results Incoming - 10/11/2018 3:58 PM CDT EXAMINATION: XR FOREARM 2 VW RIGHT CLINICAL HISTORY: fall wtih persistent pain R forearm COMPARISON: none. IMPRESSION: 1. No displaced fractures or dislocations. [facility]-[id number] Performing Organization Address [facility] Phone Number [facility] [address] [place] [phone] Gram stain (10/10/2018 6:48 PM CDT)Only the most recent of2 resultswithin the time period is included. Gram stain result Few WBC's [facility] No organisms seen HOSPITAL Comment: Specimen Information Specimen Source: Urine Specimen Site: Catheterized Specimen Urine - Catheterized Performing Organization Address [facility] Phone Number [facility] DEPARTMENT OF PATHOLOGY AND [address] [place] [phone] [address] Urine culture (10/10/2018 6:48 PM CDT) Urine culture Escherichia coli [facility] isolate 10-5 cfu/ml HOSPITAL The performance characteristics of this assay on this isolate were validated by the Microbiology Laboratory at [facility].This source has not been approved by the [...] Susceptible Performing Organization Address City/State/Zipcode Phone Number [facility] DEPARTMENT OF PATHOLOGY AND [address] [place] [address] GENOMIC MEDICINE [address] [address] Urinalysis screen and microscopy, with reflex to culture (10/10/2018 5:28 PM CDT) Specimen site Catheterized [facility] Color, UA Red [facility] Appearance, UA Turbid [facility] Specific gravity, 1.021 1.001 - 1.035 [facility] pH, UA 5.0 5.0 - 8.5 [facility] Protein, UA 2+ (A) Negative [facility] Glucose, UA Negative Negative [facility] Ketones, UA Negative Negative [facility] Bilirubin, UA Negative Negative [facility] Blood, UA Moderate (A) Negative [facility] Nitrite, UA Negative Negative [facility] Urobilinogen, UA <2.0 <2.0 [facility] Leukocyte esterase, Moderate (A) Negative [facility] WBC, UA >180 (H) 0 - 4 /HPF [facility] RBC, UA 8 (H) 0 - 5 /HPF [facility] Bacteria, UA Moderate (A) None seen [facility] WBC clumps, UA Many (A) [facility] Yeast, UA None seen [facility] Yeast with None seen [facility] pseudohyphae, HOSPITAL Specimen Urine Performing Organization Address City/[facility] Phone Number [facility] DEPARTMENT OF PATHOLOGY AND [address] [place] [address] Respiratory pathogen panel (10/09/2018 4:25 PM CDT) Pathologist [facility] Respiratory Negative for all pathogens tested: [facility] pathogen panel Negative for Adenovirus [facility] Negative for Coronavirus HKU1 [facility] Negative for Coronavirus NL63 Negative for [...] Specimen Nares - Right Performing Organization Address City/[facility] Phone Number [facility] DEPARTMENT OF PATHOLOGY AND [address] [place] [address] Influenza antigen test, reflex negative to RPP (10/09/2018 4:25 PM CDT) Influenza antigen Negative for Influenza A/B antigen. [facility] Comment: HOSPITAL Specimen Information Specimen Source: Nares Specimen Site: Right Specimen Nares - Right Performing Organization Address City/[facility]/Zipcode Phone Number [facility] DEPARTMENT OF PATHOLOGY AND [address] [place] [address] GENOMIC MEDICINE [facility] [address] [place] [address] XR Chest 1 Vw (10/08/2018 7:35 PM CDT) Specimen Narrative Performed At EXAMINATION:XR CHEST 1 [facility]W [facility] CLINICAL HISTORY:post thora COMPARISON:10/05/2018 IMPRESSION: Moderate to marked enlargement of cardiac silhouette. Left-sided dialysis catheter is identified. 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 Small left pleural effusion, decreased in size since previous exam. Mild to moderate vascular congestion. No pneumothorax. No other significant interval change. [facility]-[id number] Procedure Note Interface, Radiology Results Incoming - 10/08/2018 10:30 [...] No pneumothorax. No other significant interval change. [facility]-[id number] Performing Organization Address [facility]/Zipcode Phone Number [facility] [address] [place] [address] US Thoracentesis With Imaging (10/08/2018 6:55 PM CDT) Specimen Narrative Performed At EXAMINATION:US THORACENTESIS WITH IMAGING [facility] CLINICAL HISTORY: shortness of breathhypoxemialeft sided effusion CONSENT: Risks, benefits, and alternatives were discussed. Written informed consent was obtained prior to the procedure. ANESTHESIA: Lidocaine Local. TECHNIQUE:Patient was placed in a seated upright position. Skin was sterilely prepped and draped. Lidocaine was infiltrated into the soft tissues for local anesthesia. Using ultrasound guidance, a 5 Hungarian One-Step catheter was advanced over a trocar into the left pleural space. 0.6 L of bloody pleural fluid was removed. Patient tolerated the procedure well without immediate complication and left the room in stable condition. EBL: 0 ml. SPECIMENS: Specimen was sent if ordered. ASSISTANTS: None. IMPRESSION:Uncomplicated ultrasound-guided left thoracentesis. Procedure Note [facility], Radiology Results Incoming - 10/09/2018 6:24 AM [...] local anesthesia. Using ultrasound guidance, a 5 Hungarian One-Step catheter was advanced over a trocar into the left pleural space. 0.6 L of bloody pleural fluid was removed. Patient tolerated the procedure well without immediate complication and left the room in stable condition. EBL: 0 ml. SPECIMENS: Specimen was sent if ordered. ASSISTANTS: None. IMPRESSION: Uncomplicated ultrasound-guided left thoracentesis. Performing Organization Address [facility] Phone Number [address] [address] AFB culture (10/08/2018 6:45 PM CDT) AFB culture No growth after 6 weeks of incubation. [facility] isolate Comment: HOSPITAL Specimen Information Specimen Source: Pleural fluid Specimen Site: Chest, left Specimen Pleural fluid - Chest, left Performing Organization Address [facility] Phone Number [facility] DEPARTMENT OF PATHOLOGY AND [address] [place] [phone] [place] [phone] Aerobic culture (10/08/2018 6:45 PM CDT) Aerobic culture No growth after 3 days. [facility] isolate Comment: HOSPITAL Specimen Information Specimen Source: Pleural fluid Specimen Site: Chest, left Specimen Pleural fluid - Chest, left Performing Organization Address [facility] Phone Number [facility] DEPARTMENT OF PATHOLOGY AND [address] [place] [phone] [address] AFB stain (10/08/2018 6:45 PM CDT) AFB stain No acid fast bacilli (AFB) seen. [facility] Comment: HOSPITAL Specimen Information Specimen Source: Pleural fluid Specimen Site: Chest, left Specimen Pleural fluid - Chest, left Performing Organization Address City/[facility] Cent[facility] Phone Number [facility] DEPARTMENT OF PATHOLOGY AND [address] [place] [phone] [address] Anaerobic culture (10/08/2018 6:45 PM CDT) Anaerobic culture No anaerobic organisms isolated. [facility] isolate Comment: HOSPITAL Specimen Information Specimen Source: Pleural fluid Specimen Site: Chest, left Specimen Pleural fluid - Chest, left Performing Organization Address City/[facility]/Zipcode Phone Number [facility] DEPARTMENT OF PATHOLOGY AND [address] [place] [phone] Cell count and differential, body fluid (10/08/2018 6:45 PM CDT) Misc fluid type Pleural [facility] Color, fluid Red [facility] Appearance, fluid Hazy [facility] RBC, fluid 86,000 /CMM [facility] Nucleated cells, fluid 1,965 /CMM [facility] Fluid mononuclear cell See Diff [facility] Neutrophils, fluid 17 % [facility] Lymphocytes, fluid 14 % [facility] Mesothelial cells, 8 % [facility] Macrophages, fluid 61 % [facility] Specimen Fluid Performing Organization Address City/[facility] Centercode Phone Number [facility] DEPARTMENT OF PATHOLOGY AND [address] [place] [phone] [address] Protein, misc fluid (10/08/2018 6:45 PM CDT) Fluid type Pleural [facility] Protein, fluid 4.0 g/dL [facility] Comment: HOSPITAL Analysis performed on Eliana 8000 analyzer. This is not an approved methodology for this specimen type;accuracy and clinical significance uncertain. Specimen Fluid Performing Organization Address City/[facility]/Zipcode Phone Number [facility] DEPARTMENT OF PATHOLOGY AND [address] [place] [phone] [place] [phone] LDH, misc fluid (10/08/2018 6:45 PM CDT) Fluid type Pleural [facility] LDH, fluid 255 U/L [facility] Comment: HOSPITAL Analysis performed on Eliana 8000 analyzer. This is not an approved methodology for this specimen type;accuracy and clinical significance uncertain. Specimen Fluid Performing Organization Address City/[facility]/Zipcode Phone Number [facility] DEPARTMENT OF PATHOLOGY AND [address] [place] [phone] [place] [phone] Glucose level, misc fluid (10/08/2018 6:45 PM CDT) Fluid type Pleural [facility] Glucose, fluid 110 mg/dL [facility] Comment: HOSPITAL Analysis performed on Eliana 8000 analyzer. This is not an approved methodology for this specimen type;accuracy and clinical significance uncertain. Specimen Fluid Performing Organization Address City/[facility] Centercode Phone Number [facility] DEPARTMENT OF PATHOLOGY AND [address] [place] [address] pH, misc fluid (10/08/2018 6:45 PM CDT) Fluid type Pleural [facility] pH, fluid 8.00Comment: Reference [facility] ranges are not HOSPITAL established for Miscellanous specimens. Specimen Fluid Performing Organization Address City/[facility] Centercode Phone Number [facility] DEPARTMENT OF PATHOLOGY AND [address] [place] [phone] [place] [phone] Lactic acid level (10/08/2018 12:30 PM CDT) [facility] Lactic acid 0.8 0.5 - 2.2 mmol/L [facility] Specimen Blood Performing Organization Address City/[facility] Centercode Phone Number [facility] DEPARTMENT OF PATHOLOGY AND [address] [place] [phone] Head Wo Contrast (10/08/2018 11:25 AM CDT) Specimen Narrative Performed At EXAMINATION: CT HEAD WO CONTRAST [facility] CLINICAL HISTORY: Altered level of consciousness [...] intracranial abnormality identified. No significant interval appreciated. [id number] Procedure Note Interface, Radiology Results Incoming - [...] intracranial abnormality identified. No significant interval appreciated. [id number] Performing Organization Address City/State/Zipcode Phone Number [facility] [address] [place] [address] CT Chest Wo Contrast (10/08/2018 11:25 AM CDT) Specimen Narrative Performed At EXAMINATION:[facility]:Shortness of breath, shortness of breath [...] hypertension. Clinical correlation. 4.Additional findings as above. [facility]-[id number] Procedure Note Interface, Radiology Results Incoming - [...] Clinical correlation. 4. Additional findings as above. [facility]-[id number] Performing Organization Address City/State/Zipcode Phone Number [facility] [address] [place] [address] Cytology (non-gynecological) request (10/08/2018 7:49 AM CDT) [facility] DEPARTMENT OF PATHOLOGY AND GENOMIC MEDICINE Cytology See link below [facility] DEPARTMENT OF (non-gynecological) for PDF Lab PATHOLOGY AND report Report GENOMIC MEDICINE Result status This is Final [facility] DEPARTMENT OF Report for PATHOLOGY AND [id number] GENOMIC MEDICINE Specimen Performing Organization Address City/State/Zipcode Phone Number [facility] DEPARTMENT OF PATHOLOGY AND [address] [place] [address] GENOMIC MEDICINE Echocardiogram complete w contrast and 3D if needed (10/07/2018 10:04 AM CDT) Specimen Narrative Performed At [facility] Echocardiography Report [address] [facility] [address] [address] Pat.Name:FANNIE DELACRUZ Pat.ID:[id number] St.Date: 10/07/2018Refer.MD:PREETI SIMMS MD Exam Time: 8:14:00 AMStudy Type:Routine Echo Height:64inWeight: 225lb BSA: 2.06 m2 DOBAge:1960,58Y Sex: FEMALEBP:89/49 HR:81 bpm Sonogrphr: STEPHENIE Kessler Pat. Stat.:Inpatient Room:[facility] Study Status:Final Echo Event ID:[id number] Order ID:[id number] Reason for Study:SOB History / Clinical:Pulmonary Hypertension, [...] PA systolic pressure. MEASUREMENTS: 2D Parasternal [place] LVOT 2.2 cmAo An2.1 cm LA Ds4.8 cmAo Rtd 3 cm Index1.4 cm/m Left Ventricle LVIDd5 cm (3.6-5.2) Index2.4 cm/m LA Sng Plane LA Area 26.1 cm2(8.8-23.4) LA Vol74.4 ml Index36.1 ml/m LA LngAx 7.7 cm Signed 10/07/2018 12:50 PM Dario Morales MD Procedure Note Interface, Radiology Results In - 10/07/2018 12:51 PM CDT Echocardiography Report [address] [place] [address] Pat.Name: FANNIE DELACRUZ Pat.ID: [id number] .Date: 10/07/2018 Refer.MD: PREETI SIMMS MD Exam Time: 8:14:00 AM Study Type:Routine Echo Height: 64in Weight: 225lb BSA: 2.06 m2 Age: 10 1960,58Y Sex: FEMALE BP: 89/49 HR: 81 bpm Sonogrphr: STEPHENIE Kessler Pat. Stat.:Inpatient Room: [facility] Study Status:Final Echo Event ID:[id number] Order ID: [id number] Reason for Study:SOB History / Clinical:Pulmonary Hypertension, [...] PA systolic pressure. MEASUREMENTS: 2D Parasternal [place] LVOT 2.2 cm Ao An 2.1 cm LA Ds 4.8 cm Ao Rtd 3 cm Index 1.4 cm/m Left Ventricle LVIDd 5 cm (3.6-5.2) Index 2.4 cm/m LA Sng Plane LA Area 26.1 cm2 (8.8-23.4) LA Vol 74.4 ml Index 36.1 ml/m LA LngAx 7.7 cm Signed 10/07/2018 12:50 PM Dario Morales MD Performing Organization Address City/[facility] Centercode Phone Number [facility] [address] [place] [address] Hepatitis B surface antigen (10/06/2018 2:30 PM CDT) Pathologist [facility] Hepatitis B surface Non-reactive Non-reactive [facility] Specimen Blood Performing Organization Address [facility] Centercode Phone Number [facility] DEPARTMENT OF PATHOLOGY AND [address] [place] [phone] [address] Prothrombin time with INR (10/06/2018 2:30 PM CDT) Pathologist [facility] Prothrombin time 14.5 11.5 - 14.5 [facility] INR 1.2 [facility] Comment: [facility] International Normalized Ratio (INR) is a therapeutic HOSPITAL monitoring tool for patients who are stable on oral anticoagulant therapy. An INR of 2.0-3.0 is suggested for deep vein thrombosis/pulmonary embolism. Specimen Blood Performing Organization Address [facility] Phone Number [facility] DEPARTMENT OF PATHOLOGY AND [address] [place] [phone] [place] [phone] Comprehensive metabolic panel (10/06/2018 2:30 PM CDT) [facility] Sodium 143 135 - 148 [facility] mEq/L [facility] Potassium 4.5 3.5 - 5.0 [facility] mEq/L [facility] Chloride 101 98 - 112 mEq/L [facility] CO2 28 24 - 31 mEq/L [facility] Anion gap 14@ANIO 7 - 15 mEq/L [facility] BUN 61 (H) 8 - 23 mg/dL [facility] Creatinine 3.36 (H) 0.50 - 0.90 [facility] mg/dL [facility] Glucose 116 (H) 65 - 99 mg/dL [facility] Calcium 9.1 8.8 - 10.2 [facility] mg/dL HOSPITAL Protein 6.3 6.3 - 8.3 g/dL [facility] Comment: HOSPITAL 4.6-7.0 g/dL 1 week 4.4-7.6 g/dL 7 months-1year5.1-7.3 g/dL 1-2 years5.6-7.5 g/dL >3 years6.0-8.0 g/dL 18-150 6.3-8.3 g/dL Albumin 2.4 (L) 3.5 - 5.0 g/dL [facility] A/G ratio 0.6 (L) 0.7 - 3.8 [facility] Alkaline phosphatase 69 35 - 104 U/L [facility] AST 13 10 - 35 U/L [facility] ALT 7 5 - 50 U/L [facility] Total bilirubin <0.2 0.0 - 1.2 [facility] mg/dL [facility] Specimen Plasma specimen Performing Organization Address City/[facility] Centercoco Phone Number [facility] DEPARTMENT OF PATHOLOGY AND [address] [place] [phone] GENOMIC MEDICINE [address] [address] ECG 12 lead (10/05/2018 9:44 PM CDT) Ventricular rate 88 [facility] MUSE Atrial rate 88 [facility] MUSE [place] interval 140 [facility] MUSE QRSD interval 88 [facility] MUSE QT interval 358 [facility] QTC interval 433 [facility] MUSE P axis 1 52 HM MUSE QRS axis 1 67 [facility] MUSE T wave axis 79 [facility] MUSE EKG impression Normal sinus [facility] MUSE rhythm-Normal ECG-In automated comparison with ECG of 23-NOV-2017 14:52,-No significant change was found- Specimen Narrative Performed At Performing Organization Address City/[facility] Centercode Phone Number [place] [phone] [place] [address] after 01/07/2018 Advance Directives Patient has advance care planning documents on file. For more information, please contact:Margarito Medley[address] [place] [address]
--- OUTSIDE RECORDS SUMMARY | 2019-01-08 11:57 | XMS REPORT | Clinical Summary ---
:1960 Author Organization [facility] Address [address] [place] [address] Care Team Providers Name Role Phone Michael [...] Not on file Results Not on fileafter 01/07/2018 Insurance Payer Benefit Plan / Group Subscriber ID Type Phone Address [employer] - [employer] HMO POS QPOS xxxxxxxxx HMO/POS
--- NOTE | 2019-01-08 12:10 | ER ---
Nurse's Notes [facility] Name: Fannie Plunkett Age: 58 yrs Sex: Female : 1960 Arrival Date: 01/08/2019 Time: 11:52 Bed 4 Private MD: Michael Villegas V Diagnosis: Cardiac arrest, cause unspecified;End stage renal disease Presentation: 01/08 11:50 Presenting complaint: EMS states: from EMS, pt was on the way to doctors appointment hj today from a dialysis treatment yesterday, was found on respiratory distress in the car with family, on scene EMS found pt unresponsive with no pulse so CPR was initiated at around 11:25 am; IO placed on L tibia and R shoulder area; epi was given 11:50- by EMS; 1 gm bicarb, and 1 gm of calcium; on arrival was on CPR thump; pt was intubated with 7.5 tube 24 at the T on continuous Ambubag; BGL- 149;. 11:50 Transition of care: patient was received from another setting of care (ambulatory primary care physician practice). Onset of symptoms was January 08, 2019. Risk Assessment: Do you want to hurt yourself or someone else? Patient reports no desire to harm self or others. Initial Sepsis Screen: Does the patient meet any 2 criteria? No. Patient's initial sepsis screen is negative. Does the patient have a suspected source of infection? No. Patient's initial sepsis screen is negative. Care prior to arrival: None. 11:50 Method Of Arrival: EMS: [facility] 11:52 Acuity: MODESTA 1 dm5 Historical: - Allergies: 11:50 Codeine; 11:50 Morphine; 11:50 NSAIDS; 11:50 Tape; - Home Meds: 12:00 Adcirca 20 mg Oral tab 2 tabs nightly [Active]; allopurinol 100 mg Oral tab 1 tab hj nightly [Active]; aspirin 81 mg Oral TbEC 1 tab once daily [Active]; Atrovent 0.06 % Nasal spry 2 sprays 3 times per day [Active]; Bystolic 20 mg Oral tab 1 tab once daily [Active]; calcium carbonate 600 mg (1,500 mg) Oral tab 2 tab daily [Active]; Crestor 40 mg Oral tab 1 tab nightly [Active]; Depakote 500 mg Oral TbEC 1 tab (1 tab in am \T\ 2 tabs in pm) [Active]; Detrol LA 4 mg Oral cp24 1 cap nightly [Active]; Klonopin 0.5 mg Oral tab 1 tab nightly [Active]; Lasix 20 mg Oral tab 1 tab as needed [Active]; levothyroxine 100 mcg tab 1 tab once daily [Active]; Lunesta 3 mg Oral tab 1 tab once daily [Active]; multivitamin with minerals Oral [Active]; nexabiotic [Active]; Nexium 40 mg Oral cpDR 1 cap once daily [Active]; Patanase 0.6 % nasal spry 2 sprays 2 times per day [Active]; Procrit Inj [Active]; Restasis 0.05 % ophthalmic dpet 1 drop 2 times per day [Active]; Robaxin 750 mg Oral tab 2 tabs as needed [Active]; sinuPro [Active]; tramadol 50 mg Oral tab as needed [Active]; Vascepa 1 gram Oral cap 2 caps 2 times per day [Active]; Vitamin C 500 mg Oral tab 500 mg daily [Active]; Vitamin D3 2,000 unit Oral tab daily [Active]; Zyrtec 10 mg Oral tab 1 tab once daily [Active]; - PMHx: 11:50 Anemia; Arthritis; bowel obstruction; Depression; GERD; Hyperlipidemia; Hypertension; hj Hypothyroidism; ibs; lymphedema; PAH; PULMONARY HYPERTENSION; Renal Disease; Sleep Apnea; - PSHx: 11:50 fistula on R arm; Hysterectomy; IVC filter; Joint replacement; Hernia repair; hj - Immunization history:: Adult Immunizations unknown. - Social history:: Smoking status: unknown. - Family history:: not pertinent. - Ebola Screening: : Unable to complete screening because. Screenin:50 Abuse screen: Denies threats or abuse. Denies injuries from another. Nutritional hj screening: No deficits noted. Tuberculosis screening: No symptoms or risk factors identified. Fall Risk None identified. Assessment: 11:50 General: Appears distressed, obese, Behavior is unresponsive. with ET tube in place on hj continuous ambubag, ET 7.5, 24 at the T; on CPR thump on continuous CPR; with IO on R shoulder and L Tibia; . Pain: Unable to use pain scale. Patient is unresponsive. Neuro: Level of Consciousness is unresponsive, Oriented to none. 11:50 Reassessment: pt from EMS stretcher was transferred to hospital ED stretcher, CPR hj initiated by computer techniciandionte Wolfe; ED MD Figueroa at bedside; ED RN's Be Haskins Steven; RT Bailee assisted to verify placement of ET; V/S- cannot be appreciated; connected to monitor- PEA;. Cardiovascular: Heart tones absent Capillary refill is > 3 seconds Rhythm is PEA. Respiratory: Airway via oral intubation Respiratory pattern is intubated;. GI: Abdomen is obese. : L upper chest dialysis port;. EENT: No signs and/or symptoms were reported regarding the EENT system. Derm: Skin is clammy, Skin is Skin temperature is cool. Musculoskeletal: unresponsive;. 11:50 Reassessment: Rhythmin check- PEA;. hj 11:52 Reassessment: Rhythm check; PEA;. hj 11:53 Reassessment: epi dose given and flushed at dialysis port per order;. hj 11:54 Reassessment: bicarb dose given and flushed with NS;. hj 11:54 Reassessment: calcium dose given and flushed per order;. hj 11:55 Reassessment: epi dose given and flushed with NS per order;. hj 11:58 Reassessment: Rhythmin check; asystole;. hj 11:58 Reassessment: MD held CPR and meds, TOD 1158;. hj 12:19 Reassessment: [facility] contacted, spoke with Ketan Beaver, Reference number sg [id number]. Vital Signs: 11:52 BP 0 / 0; Pulse 0; Resp 0; Temp 98.5(R); Pulse Ox 0% ; Weight 136.08 kg; Height 5 ft. 5 hj in. (165.10 cm); 11:58 BP 0 / 0; Pulse 0; Resp 0; Pulse Ox 0% ; hj 11:52 Body Mass Index 49.92 (136.08 kg, 165.10 cm) ED Course: 11:50 Patient has correct armband on for positive identification. Bed in low position. Call hj light in reach. 11:50 Maintain EMS IV. Dressing intact. Site clean \T\ dry. Gauge \T\ site: IO on R tibia and R hj shoulder. 11:50 Accessed Port-a-Cath. using Clean \T\ dry. Dressing intact. Flushes easily. hj 11:52 Patient arrived in ED. dm5 11:53 Triage completed. dm5 11:58 Be Puentes, MARC is Primary Nurse. hj 11:58 Arm band placed on right wrist. hj 12:01 Joe Figueroa MD is Attending Physician. essie 12:06 Joe Figueroa MD is Pronouncing Provider. essie 12:15 No provider procedures requiring assistance completed. IV discontinued. hj 12:31 Michael Villegas MD is Private Physician. sg Administered Medications: 11:53 Drug: EPINEPHrine 0.1mg/mL 1:10,000 1 mg Route: IVP; Site: Port-a-cath; hj 11:54 Follow up: Response: No adverse reaction; No change in condition hj 11:54 Drug: Calcium Chloride 1 grams Route: IVP; Site: Port-a-cath; hj 11:56 Follow up: Response: No change in condition hj 11:54 Drug: Sodium Bicarbonate 50 mEq Route: IVP; Site: Port-a-cath; hj 12:38 Follow up: Response: No change in condition hj 11:55 Drug: EPINEPHrine 0.1mg/mL 1:10,000 1 mg Route: IVP; Site: Port-a-cath; hj 11:56 Follow up: Response: No adverse reaction; No change in condition Point of Care Testing: Blood Glucose: 11:55 Blood Glucose: 158 mg/dL; hj Ranges: Outcome: 14:17 Patient : Time of 11:58 Pronounced by Joe Figueroa MD Body to home, Body released to OR ME notified 14:17 Condition: 14:18 Patient : Time of 11:58 Pronounced by Joe Figueroa MD Body to home. 14:19 Patient left the ED. 14:19 Condition: Signatures: Caitlin Avalos, RN RN dm5 Sergo Beard RN RN Joe Figueroa MD MD cha Smirch, Shelby, RN RN Be Puentes RN RN Corrections: (The following items were deleted from the chart) 12:40 11:50 Presenting complaint: EMS states: from EMS, pt was on the way to doctors appointment today from a dialysis treatment yesterday, was found on respiratory distress in the car with family, on scene EMS found pt unresponsive with no pulse so CPR was initiated at around 11:25 am; IO placed on L tibia and R shoulder area; epi was given 11:50- by EMS; 1 gm bicarb, and calcium; on arrival was on CPR thump; pt was intubated with 7.5 tube 24 at the T on continuous Ambubag; 11:52 Temp 98.5F Rectal; 136.08 kg; Height 5 ft. 5 in.; BMI: 49.9; [facility] 14:18 Condition: good ss ss
--- NOTE | 2019-01-08 12:10 | EDPHYS ---
Physician Documentation [facility] Name: Fannie Plunkett Age: 58 yrs Sex: Female : 1960 Arrival Date: 01/08/2019 Time: 11:52 Bed 4 Private MD: Michael Villegas V ED Physician Joe Figueroa HPI: 01/08 12:01 This 58 yrs old Female presents to ER via Unassigned with complaints of CPR. [facility] 12:01 Preceding the arrest, the patient collapsed, was dyspneic. The arrest occurred at a [facility] dialysis center. Pre-hospital course: The arrest was witnessed by intermediate staff. Bystanders at the scene performed CPR. EMS care prior to arrival: initiation of ACLS, oxygen, ACLS details: SEE REPORTS. The patient has not experienced similar symptoms in the past. Historical: - Allergies: 11:50 Codeine; hj 11:50 Morphine; hj 11:50 NSAIDS; hj 11:50 Tape; hj - Home Meds: 12:00 Adcirca 20 mg Oral tab 2 tabs nightly [Active]; allopurinol 100 mg Oral tab 1 tab hj nightly [Active]; aspirin 81 mg Oral TbEC 1 tab once daily [Active]; Atrovent 0.06 % Nasal spry 2 sprays 3 times per day [Active]; Bystolic 20 mg Oral tab 1 tab once daily [Active]; calcium carbonate 600 mg (1,500 mg) Oral tab 2 tab daily [Active]; Crestor 40 mg Oral tab 1 tab nightly [Active]; Depakote 500 mg Oral TbEC 1 tab (1 tab in am \T\ 2 tabs in pm) [Active]; Detrol LA 4 mg Oral cp24 1 cap nightly [Active]; Klonopin 0.5 mg Oral tab 1 tab nightly [Active]; Lasix 20 mg Oral tab 1 tab as needed [Active]; levothyroxine 100 mcg tab 1 tab once daily [Active]; Lunesta 3 mg Oral tab 1 tab once daily [Active]; multivitamin with minerals Oral [Active]; nexabiotic [Active]; Nexium 40 mg Oral cpDR 1 cap once daily [Active]; Patanase 0.6 % nasal spry 2 sprays 2 times per day [Active]; Procrit Inj [Active]; Restasis 0.05 % ophthalmic dpet 1 drop 2 times per day [Active]; Robaxin 750 mg Oral tab 2 tabs as needed [Active]; sinuPro [Active]; tramadol 50 mg Oral tab as needed [Active]; Vascepa 1 gram Oral cap 2 caps 2 times per day [Active]; Vitamin C 500 mg Oral tab 500 mg daily [Active]; Vitamin D3 2,000 unit Oral tab daily [Active]; Zyrtec 10 mg Oral tab 1 tab once daily [Active]; - PMHx: 11:50 Anemia; Arthritis; bowel obstruction; Depression; GERD; Hyperlipidemia; Hypertension; hj Hypothyroidism; ibs; lymphedema; PAH; PULMONARY HYPERTENSION; Renal Disease; Sleep Apnea; - PSHx: 11:50 fistula on R arm; Hysterectomy; IVC filter; Joint replacement; Hernia repair; hj - Immunization history:: Adult Immunizations unknown. - Social history:: Smoking status: unknown. - Family history:: not pertinent. - Ebola Screening: : Unable to complete screening because. ROS: 12:01 Unable to obtain ROS due to UNRESPONSIVE , CPR. essie Exam: 12:01 Constitutional: The patient appears in obvious distress, CPR, NO PULSE, NO essie RESPIRATIONS, INTUBATED. 12:01 Eyes: Pupils: are fixed and dilated. 12:01 Chest/axilla: Inspection: normal. 12:01 Cardiovascular: Rate: actual rate is 0 bpm, Rhythm: asystole, Pulses: not palpable, Heart sounds: NONE. 12:01 Respiratory: INTUBATED. Vital Signs: 11:52 BP 0 / 0; Pulse 0; Resp 0; Temp 98.5(R); Pulse Ox 0% ; Weight 136.08 kg; Height 5 ft. 5 hj in. (165.10 cm); 11:58 BP 0 / 0; Pulse 0; Resp 0; Pulse Ox 0% ; 11:52 Body Mass Index 49.92 (136.08 kg, 165.10 cm) MDM: 12:01 Patient medically screened. essie Administered Medications: 11:53 Drug: EPINEPHrine 0.1mg/mL 1:10,000 1 mg Route: IVP; Site: Port-a-cath; 11:54 Follow up: Response: No adverse reaction; No change in condition 11:54 Drug: Calcium Chloride 1 grams Route: IVP; Site: Port-a-cath; hj 11:56 Follow up: Response: No change in condition hj 11:54 Drug: Sodium Bicarbonate 50 mEq Route: IVP; Site: Port-a-cath; hj 12:38 Follow up: Response: No change in condition hj 11:55 Drug: EPINEPHrine 0.1mg/mL 1:10,000 1 mg Route: IVP; Site: Port-a-cath; hj 11:56 Follow up: Response: No adverse reaction; No change in condition hj Point of Care Testing: Blood Glucose: 11:55 Blood Glucose: 158 mg/dL; hj Ranges: Critical Glucose Levels:Adult <50 mg/dl or >400 mg/dl <40 mg/dl or >180 mg/dl Disposition: Patient pronounced on 01/08/19 11:58 by Joe Figueroa. Impression: Cardiac arrest, cause unspecified, End stage renal disease. - Released to [employer] C[employer]. Signatures: Joe Figueroa MD MD cha Joaquin, Henry RN RN raquel Corrections: (The following items were deleted from the chart) 14:19 12:09 01/08/2019 12:09 Patient pronounced on 01/08/2019 at 11:58 by Joe Figueroa. raquel Impression: Cardiac arrest, cause unspecified; End stage renal disease. 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 essie
[2019-01-08 16:02] VITALS: BP 0/0; TEMP 98.5; O2SAT 0
== END 2019-01-08 14:19 ==
LOC: ER 11:52
PROC: 5A02216 Assistance with Cardiac Output using Other Pump, Continuous (ICD-10-PCS; principal; 2019-01-08)
DX: I46.9 Cardiac arrest, cause unspecified (principal); I12.0 Hypertensive chronic kidney disease with stage 5 chronic kidney disease or end stage renal disease; N18.6 End stage renal disease; E78.5 Hyperlipidemia, unspecified; E03.9 Hypothyroidism, unspecified; F32.9 Major depressive disorder, single episode, unspecified; Z79.82 Long term (current) use of aspirin; Z88.5 Allergy status to narcotic agent; Z88.6 Allergy status to analgesic agent; Z99.2 Dependence on renal dialysis; Z91.048 Other nonmedicinal substance allergy status
CPT/HCPCS: 96374; 96375; 99285; J0171